=== PATIENT | female | born 1950 | race Caucasian/White ===

== ENCOUNTER → 2019-02-08 13:51 | Outpatient (BNVA) | payer MEDICARE, SELFPAY | PROVIDERS: Family Provider Nurse Practitioner Family; PCP Nurse Practitioner Family; Visit Provider Family Medicine | DX: R39.9 Unspecified symptoms and signs involving the genitourinary system (principal); N39.0 Urinary tract infection, site not specified; J30.9 Allergic rhinitis, unspecified | CPT/HCPCS: 81003; 87086 ==

== ENCOUNTER 2019-02-19 06:00 | Outpatient (RCR) | payer MEDICARE, SELFPAY | END 2019-03-09 23:59 | disposition home or self-care (01) | LOC: SPT 06:00 | PROVIDERS: Family Provider Nurse Practitioner Family; PCP Nurse Practitioner Family; Referring Provider Family Medicine; Visit Provider Family Medicine | DX: R53.1 Weakness (principal) | CPT/HCPCS: 97032; 97110; 97116; 97162; 97530 ==

== ENCOUNTER 2019-02-22 08:03 | Outpatient (RCR) | payer MEDICARE, SELFPAY | END 2019-03-09 23:59 | disposition home or self-care (01) | LOC: WOUND 08:03 | PROVIDERS: Family Provider Nurse Practitioner Family; PCP Nurse Practitioner Family; Visit Provider Nurse Practitioner Family | DX: I96 Gangrene, not elsewhere classified (principal); L89.893 Pressure ulcer of other site, stage 3 | CPT/HCPCS: 99203; G0463 ==

== ENCOUNTER 2019-03-11 06:00 | Outpatient (RCR) | payer MEDICARE, MEDICAID, SELFPAY | END 2019-04-07 23:59 | disposition home or self-care (01) | LOC: SPT 06:00 | PROVIDERS: Family Provider Nurse Practitioner Family; PCP Nurse Practitioner Family; Referring Provider Family Medicine; Visit Provider Family Medicine | DX: M62.81 Muscle weakness (generalized) (principal); Z91.81 History of falling; E66.01 Morbid (severe) obesity due to excess calories | CPT/HCPCS: 97110; 97116; 97164; 97530 ==

== ENCOUNTER 2019-03-22 08:16 | Outpatient (RCR) | payer MEDICARE, MEDICAID, SELFPAY | END 2019-04-07 23:59 | disposition home or self-care (01) | LOC: WOUND 08:16 | PROVIDERS: Family Provider Nurse Practitioner Family; PCP Nurse Practitioner Family; Visit Provider Nurse Practitioner Family | DX: Z09 Encounter for follow-up examination after completed treatment for conditions other than malignant neoplasm (principal) | CPT/HCPCS: 99213; G0463 ==

== ENCOUNTER → 2019-04-02 15:27 | Outpatient (BNVA) | payer MEDICARE, MEDICAID, SELFPAY | PROVIDERS: Family Provider Nurse Practitioner Family; PCP Nurse Practitioner Family; Visit Provider Family Medicine | DX: M79.644 Pain in right finger(s) (principal); G89.29 Other chronic pain | CPT/HCPCS: 73140 ==

== ENCOUNTER 2019-04-08 06:00 | Outpatient (RCR) | payer MEDICARE, MEDICAID, SELFPAY | END 2019-05-08 23:59 | disposition home or self-care (01) | LOC: SPT 06:00 | PROVIDERS: Family Provider Nurse Practitioner Family; PCP Nurse Practitioner Family; Referring Provider Family Medicine; Visit Provider Family Medicine | DX: M62.81 Muscle weakness (generalized) (principal); Z91.81 History of falling; E66.01 Morbid (severe) obesity due to excess calories | CPT/HCPCS: 97110; 97116; 97530 ==

== ENCOUNTER → 2019-05-16 16:40 | Outpatient (BNVA) | payer MEDICARE, MEDICAID, SELFPAY | PROVIDERS: Family Provider Nurse Practitioner Family; PCP Nurse Practitioner Family; Visit Provider Nurse Practitioner Family | DX: I50.9 Heart failure, unspecified (principal); E55.9 Vitamin D deficiency, unspecified | CPT/HCPCS: 80053; 82306; 83880; 85025 ==

== ENCOUNTER → 2019-05-18 09:39 | Outpatient (BNVA) | payer MEDICARE, MEDICAID, SELFPAY | PROVIDERS: Family Provider Nurse Practitioner Family; PCP Nurse Practitioner Family; Referring Provider Family Medicine; Visit Provider Orthopaedic Surgery | DX: M25.561 Pain in right knee (principal); M17.12 Unilateral primary osteoarthritis, left knee; M94.261 Chondromalacia, right knee; S72.433A Displaced fracture of medial condyle of unspecified femur, initial encounter for closed fracture; X58.XXXA Exposure to other specified factors, initial encounter | CPT/HCPCS: 73560; 73565 ==

== ENCOUNTER 2019-06-05 06:17 | Inpatient (IN) | payer MEDICARE, MEDICAID, SELFPAY ==
[2019-06-05] VITALS (82 sets, daily range): BP systolic 54–124; BP diastolic 41–89; PULSE 82–104; RESP 9–28; TEMP 36.7–37; O2SAT 64–100; BMI 32.3; BMI 41.3
--- NOTE | 2019-06-05 06:36 | CT_ITS ---
WS: [id number] CT ABDOMEN AND PELVIS WITH CONTRAST HISTORY: nvd TECHNIQUE: Imaging performed of the abdomen and pelvis with IV contrast. Single phase imaging of the abdomen. Coronal and sagittal reformats are submitted. All CT scans at [facility] use at least one of these dose optimization techniques: automated exposure control; mA and/or kV adjustment per patient size (includes targeted exams where dose is matched to clinical indication); or iterativ e reconstruction. IV CONTRAST: Visipaque 320; 95 mL IV. Oral contrast: No DLP: 3719.92 mGy.cm COMPARISON: 06/20/2017 Lower thorax: Lung bases are clear. Heart is normal size. Small hiatal hernia. Liver/biliary system: Surface of the liver is slightly irregular and nodular suggesting cirrhosis. No bile duct dilatation or mass. Gallbladder: Prior cholecystectomy. Pancreas: Normal. Spleen: Normal. Adrenal glands: Normal RIGHT adrenal gland. Rounded solid mass in the LEFT adrenal gland measures 2.1 cm in diameter. Similar to the prior study. Right kidney: Lobulated renal cortex. Exophytic cyst from the lower pole. Nonobstructing calcificatio ns upper pole LEFT kidney. Vascular calcifications. No ureteral obstruction. Left kidney: Cortical thinning and renal atrophy. No obstruction. 1.2 cm cyst lower pole. Aorta: Moderate atherosclerosis of aorta. No aneurysm. Lymphadenopathy: None. Free fluid: None. GI tract: No GI tract obstruction. Prior cholecystectomy. Numerous diverticula in the descending and sigmoid colon. There is moderate mucosal thickening and increased soft tissue at the duodenum that wa s not present on the prior study. Soft tissue edema extends into the mucosa. Suspect there could be a n ulcer. There is no adjacent free fluid. Abdominal wall: Infraumbilical abdominal wall hernia contains fat only. There is a large pannus exten ding below the pelvis with inflammatory changes, similar to the prior study. Chronic inflammatory mustapha nges. Pelvis: No free fluid in the pelvis. There is mild fluid distention of the endometrium. Endometrium m easures 12 mm and this is a new finding since 06/20/2017. Bones: Increase in lumbar lordosis. Multilevel degenerative disc disease. CT/CT abdomen pelvis w con* [id number] IMPRESSION: 1. New soft tissue thickening and edema with narrowing of the lumen involving the duodenum. Favor this is an acute inflammatory process and there may be an a ssociated ulcer. Recommend close follow-up to be sure this resolves. Upper endo scopy may be necessary to exclude neoplasm. 2. Cirrhosis. 3. Prior appendectomy and cholecystectomy. 4. Diverticulosis. 5. Mild fluid distention of the endometrium. Recommend follow-up transvaginal ultrasound evaluation on a nonurgent basis.
--- NOTE | 2019-06-05 06:37 | W.ED.NAVMDI ---
HPI - Nausea/Vomiting/Diarrhea General: Chief complaint: Nausea/Vomiting/Diarrhea Stated complaint: N/V Time Seen by Provider: 06/05/19 06:23 History of Present Illness: Associated nausea: Yes Associated symtoms: Reports nausea Review of Systems General: Reports: 10 or more systems reviewed and unremarkable except in HPI and below GI: Reports: abdominal pain, nausea, vomiting and diarrhea PFSH ED PFSH: Medical History Anxiety ASHD (arteriosclerotic heart disease) Back pain CHF (congestive heart failure) CKD (chronic kidney disease) DDD (degenerative disc disease) Decreased hearing of both ears Diabetes Diabetic polyneuropathy Dyslipidemia Hypertension Morbid obesity Vitamin B deficiency Vitamin D deficiency Surgical History H/O hernia repair History of coronary artery stent placement Hx of section 3 Hx of cholecystectomy Hx of tonsillectomy S/P plastic surgery 2019 Family History Other Hypertension Social History Smoking and tobacco status: former smoker Quit status (tobacco): has quit using tobacco Former quit date comment: 2.5 PPD x 40 yrs Alcohol intake: unknown Lives independently: Yes Household members: spouse Housing: House Marital status: Pets and animals: Yes History of recent travel: No Current gender identity: Female Physical Exam Const: COMMON NORMALS: no apparent distress, oriented x3 and alert Neck/C-Spine: COMMON NORMALS: no JVD Resp: COMMON NORMALS: normal respiratory effort, no use of accessory muscles and clear to auscultation bilaterally AUSCULTATION: clear to auscultation bilaterally Cardio: COMMON NORMALS: no JVD, regular rate and regular rhythm RATE: regular rate RHYTHM: regular rhythm GI: COMMON NORMALS: normal to inspection, nondistended, normoactive bowel sounds and soft to palpation PALPATION: Yes soft Extremity: COMMON NORMALS: normal to inspection, full ROM and no pedal edema Neuro: COMMON NORMALS: oriented x3 SENSORIUM/ORIENTATION: Yes alert Course Vital Signs: Vital signs: Vital Signs Temperature 98.6 F 06/05/19 06:25 Pulse Rate 92 06/05/19 06:25 Respiratory Rate 18 06/05/19 06:25 Pulse Oximetry 90 06/05/19 06:25 Discharge Plan Discharge Prescriptions: No Action nitroglycerin [Nitrostat] 0.4 mg tablet, sublingual 0.4 mg SUBLINGUAL Q5M PRN (Reason: Chest Pain) RF: 0 (DME) insulin syringes (disposable) 1 mL syringe See Rx Instructions .ROUTE .MEDSUPPLY Qty: 500 RF: 0 potassium chloride 20 mEq tablet extended release 1.5 meq PO BID RF: 0 albuterol sulfate [Ventolin HFA] 90 mcg/actuation HFA aerosol inhaler 2 puff INHALATION Q6H PRN (Reason: Shortness Of Breath) RF: 0 (DME) pen needle, diabetic [1st Tier Unifine Pentips] 29 gauge x 1/2 needle See Rx Instructions .ROUTE .MEDSUPPLY Qty: 30 RF: 0 furosemide 40 mg tablet 80 mg PO QAM RF: 0 phenazopyridine [Pyridium] 100 mg tablet 100 mg PO TID Qty: 20 RF: 0 metoprolol tartrate 50 mg tablet 50 mg PO BID Qty: 180 RF: 0 cholecalciferol (vitamin D3) 2,000 unit tablet 2,000 unit PO DAILY RF: 0 ketoconazole 2 % cream 1 applic TOPICAL BID Qty: 60 RF: 1 Levemir U-100 Insulin 100 unit/mL solution 80 unit SUBCUT BID Qty: 100 RF: 1 Novolog U-100 Insulin aspart 100 unit/mL solution 35 unit SUBCUT TID Qty: 10 RF: 3 nystatin [Nystop] 100,000 unit/gram powder 1 applic TOPICAL QID Qty: 30 RF: 5 cyclobenzaprine 10 mg tablet 10 mg PO TID PRN (Reason: muscle spasm) Qty: 45 RF: 3 isosorbide mononitrate 30 mg tablet extended release 24 hr 30 mg PO DAILY Qty: 30 RF: 5 allopurinol 300 mg tablet 300 mg PO BID Qty: 60 RF: 5 clopidogrel 75 mg tablet 75 mg PO DAILY Qty: 30 RF: 5 atorvastatin [Lipitor] 40 mg tablet 40 mg PO DAILY Qty: 30 RF: 5 tramadol 50 mg tablet 50 mg PO BID PRN (Reason: pain) Qty: 60 RF: 1 meclizine 25 mg tablet 25 mg PO TID PRN (Reason: dizziness) Qty: 90 RF: 0 fluticasone propionate 50 mcg/actuation spray,suspension 2 spray INTRANASAL DAILY Qty: 15.8 RF: 2 lisinopril 5 mg tablet 5 mg PO DAILY Qty: 60 RF: 0 loratadine [Claritin] 10 mg tablet 10 mg PO Q24H Qty: 30 RF: 2 Voltaren 1 % gel 4 gm TOPICAL QID RF: 0 Coding Level of Care Code ED [employer] Professor for Chg Fwd Exam Detailed
[2019-06-05 07:21] LABS: Basophils % 0.3 %; Eosinophils % 0.1 %; Hematocrit 26.8 % (37.0-47.0); Hemoglobin 8.6 g/dL (11.5-15.3); Lymphocytes # 1.4 10^3/uL (0.8-4.8); Lymphocytes % 9.2 %; Mean Corpuscular HGB Conc 32.1 g/dL (30.0-36.0); Mean Corpuscular Hemoglobin 34.3 pg (28.0-34.0); Mean Corpuscular Volume 106.8 fL (81-99); Mean Platelet Volume 10.4 fL (7.4-10.4); Monocytes # 0.7 10^3/uL (0.2-0.9); Monocytes % 4.5 %; Neutrophils # 13.2 10^3/uL (1.8-7.7); Neutrophils % 85.3 %; Nucleated Red Blood Cells % 0 %; Platelet Count 119 10^3/cmm (130-400); Red Blood Count 2.51 10^6/uL (4.1-5.3); Red Cell Distribution Width 14.9 % (12.1-15.1); White Blood Count 15.5 10^3/uL (4.0-10.0)
[2019-06-05 07:36] LABS: Alanine Aminotransferase 16 U/L (0-33); Albumin Level 3.1 g/dL (3.5-5.2); Alkaline Phosphatase 164 IU/L (35-105); Anion Gap 16.4 (5-19); Aspartate Amino Transferase 11 U/L (0-32); Blood Urea Nitrogen 61 mg/dL (8-23); Calcium 10.5 mg/dL (8.5-10.5); Carbon Dioxide 25 mmol/L (22-29); Chloride 98 mmol/L (98-107); Creatinine Clr Calc Pharmacy 59.3903; Glomerular Filtration Rate 54.8 mL/min (90-130); Lipase 14 U/L (13-60); Osmolality Calculated 302 mOsm/kg (285-295); Potassium 5.4 mmol/L (3.5-5.1); Sodium 134 mmol/L (136-145); Total Bilirubin 0.6 mg/dL (0.15-1.2); Total Protein 6.1 g/dL (6.6-8.7)
[2019-06-05 07:42] LABS: Glucose 555 mg/dL (65-115)
[2019-06-05] MEDS: iodixanol 320 mg/mL 100mL Btl IV (07:54)
[2019-06-05] MEDS: ondansetron 2 mg/ML SDV 2 mL 4 MG IVP (07:56)
[2019-06-05] MEDS: sodium chloride 0.9% 1,000 ML 999 ML IV (07:56)
[2019-06-05 08:29] LABS: Lactate (Lactic Acid level) 2.3 mmol/L (0.5-2.2)
--- NOTE | 2019-06-05 08:37 | PC.NURSE ---
Pt refused hospital gown. Assisted to use bedside commode.
--- NOTE | 2019-06-05 10:45 | P.HP_ITS ---
Providers/Chief Complaint Admitting Physician: Marichuy Toro DO Primary Care Provider: BECKI Moreno Chief Complaint: GI BLEED, ANEMIA, N/V/D History of Present Illness Yesika Sanchez is a 69 year old female that presented to the emergency department today for nausea vomiting. She reported that her vomit looked like coffee grounds. She reported that she was concerned due to the amount of emesis she was experiencing therefore came into the ER for further evaluation and treatment. She reported that she is having some vague discomfort in the center of her abdomen. She stated that her symptoms suddenly began last night after eating fast food. She has been having diarrhea since last night, reported to be dark in color, likely melena. She reports that she has been on aspirin and Plavix due to history of coronary artery disease, stent in 2017. Patient stated that she has been under significant amount of stress recently due to marital difficulties. Patient also reports history of bulimia and has been inducing vomiting on occasion when she is stressed. Patient also reports that she is cut down on her insulin over the past 24 hours due to decreased oral intake, reports increased thirst. She was seen and evaluated in the emergency department noted to have concern for upper GI bleed had type and screen performed. She was noted to be hypotensive given IV fluids. Patient had a CT scan of the abdomen and pelvis which showed concern for changes in the duodenum. She was admitted for further evaluation and treatment. Review of Systems Const: Denies: fever or chills Eyes: Denies: change in vision ENMT: Denies: nasal congestion Card: Denies: chest pain, palpitations or edema Resp: Denies: shortness of breath, productive cough or coughing up blood GI: Reports: abdominal pain, nausea, vomiting, coffee grounds in vomit and black tarry stool; Denies: diarrhea, constipation or blood in stool : Denies: painful urination or blood in urine Musc: Denies: extremity pain or muscle cramps Skin/Breast: Denies: rash or new lesion Neuro: Denies: headache or dizziness Psych: Denies: anxiety or depression Endo: Reports: excessive urination and excessive thirst; Denies: hot flashes Steven/Lymph: Denies: easy bruising or easy bleeding Medications/Allergies Home Medications Medication Instructions Recorded Confirmed Last Taken Type albuterol sulfate 90 mcg/actuation 2 puff INHALATION Q6H PRN 01/02/20 04/28/20 Unknown History aerosol inhaler furosemide 40 mg tablet 80 mg PO QAM 02/08/19 06/05/19 06/04/19 History insulin syringes (disposable) 1 mL #500 each 02/08/19 06/05/19 Unknown History nitroglycerin 0.4 mg sublingual 0.4 mg SUBLINGUAL Q5M PRN 02/08/19 06/05/19 Unknown History tablet pen needle, diabetic 29 gauge x #30 each 02/08/19 06/05/19 Unknown History 1/2 phenazopyridine 100 mg tablet 100 mg PO TID #20 tab 02/08/19 06/05/19 06/04/19 Rx potassium chloride 20 mEq 1.5 meq PO BID tab 02/08/19 06/05/19 06/04/19 History tablet,extended release ketoconazole 2 % topical cream 1 applic TOPICAL BID #60 gm 03/20/19 06/05/19 0 06/04/19 Rx insulin detemir U-100 100 unit/mL 80 unit SUBCUT BID #100 ml 03/21/19 06/05/19 06/04/19 Rx subcutaneous solution insulin aspart U-100 100 unit/mL 35 unit SUBCUT TID #10 ml 03/23/19 06/05/19 06/04/19 Rx subcutaneous solution metoprolol tartrate 50 mg tablet 50 mg PO BID #180 tab 03/27/19 06/05/19 06/04/19 Rx cholecalciferol (vitamin D3) 50 2,000 unit PO DAILY tab 04/02/19 06/05/19 06/04/19 History mcg (2,000 unit) tablet allopurinol 300 mg tablet 300 mg PO BID #60 tab 04/25/19 06/05/19 06/04/19 Rx atorvastatin 40 mg tablet 40 mg PO DAILY #30 tab 04/25/19 06/05/19 06/04/19 Rx clopidogrel 75 mg tablet 75 mg PO DAILY #30 tab 04/25/19 06/05/19 06/04/19 Rx cyclobenzaprine 10 mg tablet 10 mg PO TID PRN #45 tab 04/25/19 06/05/19 Unknown Rx isosorbide mononitrate 30 mg 30 mg PO DAILY #30 tab 04/25/19 06/05/19 06/04/19 Rx tablet,extended release 24 hr nystatin 100,000 unit/gram topical 1 applic TOPICAL QID #30 gm 04/25/19 06/05/19 06/04/19 Rx powder tramadol 50 mg tablet 50 mg PO BID PRN #60 tab 04/26/19 06/05/19 06/04/19 Rx fluticasone propionate 50 2 spray INTRANASAL DAILY #15.8 ml 05/21/19 06/05/19 06/04/19 Rx mcg/actuation nasal spray,suspension lisinopril 5 mg tablet 5 mg PO DAILY #60 tab 05/21/19 06/05/19 06/04/19 Rx loratadine 10 mg tablet 10 mg PO Q24H #30 tab 05/21/19 06/05/19 Unknown Rx meclizine 25 mg tablet 25 mg PO TID PRN #90 tab 05/21/19 06/05/19 06/04/19 Rx diclofenac sodium [Voltaren] 4 gm TOPICAL QID 06/05/19 06/05/19 06/04/19 History Allergies Allergy/AdvReac Type Severity Reaction Status Date / Time bupropion [From Wellbutrin] Allergy Unknown Unknown Verified 05/18/19 10:38 ciprofloxacin Allergy Unknown Unknown Verified 05/18/19 10:38 codeine Allergy Unknown Unknown Verified 05/18/19 10:38 fluoxetine [From Prozac] Allergy Unknown Unknown Verified 05/18/19 10:38 gabapentin Allergy Unknown Unknown Verified 05/18/19 10:38 Opioids - Morphine Analogues Allergy Unknown Unknown Verified 05/18/19 10:38 sulindac [From Clinoril] Allergy Unknown unkown Verified 05/18/19 10:38 PFSH Acute PFSH: Medical History (Updated 06/05/19 @ 10:52 by Marichuy Toro DO) Anxiety ASHD (arteriosclerotic heart disease) Back pain CHF (congestive heart failure) CKD (chronic kidney disease) Coronary artery disease DDD (degenerative disc disease) Decreased hearing of both ears Diabetes Diabetic polyneuropathy Dyslipidemia Hypertension Morbid obesity Vitamin B deficiency Vitamin D deficiency Surgical History (Updated 06/05/19 @ 10:55 by Marichuy Toro DO) H/O hernia repair History of coronary artery stent placement Cardiac cath on 12/13/2016 with stent placement to LAD Hx of section 3 Hx of cholecystectomy Hx of tonsillectomy S/P plastic surgery 2019, panniculectomy Family History (Updated 06/05/19 @ 10:54 by Marichuy Toro DO) Mother CAD (coronary artery disease) Other Hypertension Social History Smoking and tobacco status: former smoker Quit status (tobacco): has quit using tobacco Former quit date comment: 2.5 PPD x 40 yrs Alcohol intake: unknown Lives independently: Yes Household members: spouse Housing: House Marital status: Pets and animals: Yes History of recent travel: No Current gender identity: Female Vitals/I&O/Wt Last Vital Signs Temp 98.0 F 06/05/19 10:20 Pulse 87 06/05/19 10:30 Resp 20 H 06/05/19 10:30 BP 104/62 06/05/19 10:30 Pulse Ox 100 06/05/19 10:30 Weight last 48 hrs Weight 90.718 kg Physical Exam Const: COMMON NORMALS: oriented x3 and alert GENERAL APPEARANCE: cooperative ORIENTATION/CONSCIOUSNESS: Yes awake, Yes oriented to person, Yes oriented to place and Yes oriented to time HENMT: COMMON NORMALS: normocephalic and head/scalp atraumatic HEAD & SCALP: normocephalic and atraumatic Eye: COMMON NORMALS: PERRL PUPIL: Yes PERRL Neck/C-Spine: COMMON NORMALS: supple GENERAL: Yes normal visual inspection Resp: COMMON NORMALS: normal respiratory effort and clear to auscultation bilaterally EFFORT & INSPECTION: Yes able to speak in complete sentences AUSCULTATION: clear to auscultation bilaterally, no rhonchi and no wheezes Cardio: COMMON NORMALS: regular rate, regular rhythm and no murmurs RATE: regular rate RHYTHM: regular rhythm GI: COMMON NORMALS: soft to palpation INSPECTION: No abdominal distension AUSCULTATION: Yes normoactive bowel sounds PALPATION: Yes soft and Yes tender (Epigastric region) : COMMON NORMALS: Yes no CVA tenderness BLADDER/KIDNEY EXAM: Yes no CVA tenderness Back/Pelvis: COMMON NORMALS: no CVA tenderness Extremity: COMMON NORMALS: no clubbing, cyanosis or edema and no calf tenderness Neuro: COMMON NORMALS: oriented x3, CN's II-XII intact bilaterally, moves all extremities and no focal motor deficits SENSORIUM/ORIENTATION: Yes alert, Yes oriented to person, Yes oriented to place and Yes oriented to time SPEECH: speech normal Psych: COMMON NORMALS: mental status grossly normal and cooperative Skin: COMMON NORMALS: no rashes or lesions noted GENERAL SKIN EXAM: no rashes or lesions noted Data : 06/05/19 13:06 06/05/19 13:06 A&P Assessment and plan (1) Acute GI bleeding: Concern for acute upper GI bleed with reported coffee-ground emesis for the past 24 hours. Hemoglobin decreased from 10 earlier this month down to 8.6 today. Type and screen performed in the ER, has not received any blood products at this time CT scan of the abdomen and pelvis reviewed shows thickening in the duodenum, this was discussed with Dr. Toth and consultation placed. Plan for EGD today. Continue on Protonix 40 mg every 12 hours Status: Acute (2) Anemia: Acute on chronic anemia due to GI bleed. Plan as above Status: Acute Qualifiers: Anemia type: unspecified type Qualified Code(s): D64.9 - Anemia, unspecified (3) Poorly controlled diabetes mellitus: Blood glucose greater than 500 on presentation to the ED. Patient reports not taking her home insulin as previously prescribed due to her symptoms that began yesterday. She did report taking Levemir last night, unknown dosing. Will place on high-dose sliding scale insulin. Status: Acute (4) CHF (congestive heart failure): Patient is hypovolemic on presentation to the ED due to concern for GI bleed. Will hold off on diuresis at this time due to soft pressures. Status: Acute (5) Hypertension: Patient was hypotensive while in the ED. Blood pressure improved after administration of IV fluids. We will continue to monitor blood pressure closely. Hold home antihypertensives. Status: Acute Additional A&P Information Chronic thrombocytopenia: Believed to be secondary to underlying cirrhosis. Holding aspirin and Plavix Coronary artery disease: Cardiac cath in 2017 with PCI to LAD. Holding aspirin and Plavix due to concern for GI bleed. Patient also with chronic thrombocytopenia History of cirrhosis, patient had previously declined further evaluation and work-up Morbid obesity Mild hyperkalemia: Given IV fluids, will recheck potassium DVT prophylaxis: SCDs, no pharmacologic prophylaxis due to concern for GI bleed Diet: N.p.o. CODE STATUS: DNI/DNI [facility] Medical Necessity Statement*: Patient requires hospitalization due to acute anemia with concern for acute GI bleed. Expected stay greater than 2 midnights Coding Level of Care Code Acute Stretcher Level[employer] Operator for Chg Fwd Exam Comprehensive Diagnoses Acute GI bleeding K92.2 Anemia D64.9 Anemia type: unspecified type Poorly controlled diabetes mellitus E11.65 CHF (congestive heart failure) I50.9 Hypertension I10
--- NOTE | 2019-06-05 11:19 | P.ANESASSM_ITS ---
Pre-Anesthetic Assessment Pre-Anesthetic Assessment: Height/Weight: Height 1.73 m Weight 123.377 kg Temp Pulse Resp BP Pulse Ox 98.0 F 87 20 H 104/62 100 06/05/19 10:20 06/05/19 10:30 06/05/19 10:30 06/05/19 10:30 06/05/19 10:30 Preop Diagnosis: hematemsis Proposed Procedure: Operation Date: 06/05/19 14:30 Proposed Procedures p EGD(Not Applicable) - Chadwick Toth MD Familial anesthetic complications: Loss of taste after anesthesia - patient informed no way to prevent this from happening again Was Beta Caroline taken within 24 hours: N/A Social: Social History: No alcohol and No tobacco Comment: former smoker Exam: Pre-Anes Outpt Exam: alert, oriented x 3, clear to auscultation bilaterally and regular rate & rhythm Airway: Cervical ROM: WNL MP: 4 Dentition: Chipped Pulmonary: Pulmonary: None reported CV/HEM: CV/HEM: CAD (stent to LAD 2017 on plavix and asa), CHF and HTN : : Chronic renal Insufficiency Hepatic: Hepatic: None reported GI: Comments: N/'V/D Hx bulimia hasn't vomited since yesterday Metabolic: Metabolic: DM and Morbid obesity Comments: potassium 5.4 glucose 555 on admission Anesthetic Plan: ASA status: 3 Anesthesia: MAC Other: If patient has no further episodes of vomiting, will proceed with MAC. If not will require general Risk of > 500 ml blood loss (7ml/kg in children): No PFSH Anesthesia PFSH: Medical History (Updated 06/05/19 @ 10:52 by Marichuy Toro DO) Anxiety ASHD (arteriosclerotic heart disease) Back pain CHF (congestive heart failure) CKD (chronic kidney disease) Coronary artery disease DDD (degenerative disc disease) Decreased hearing of both ears Diabetes Diabetic polyneuropathy Dyslipidemia Hypertension Morbid obesity Vitamin B deficiency Vitamin D deficiency Surgical History (Updated 06/05/19 @ 10:55 by Marichuy Toro DO) H/O hernia repair History of coronary artery stent placement Cardiac cath on 12/13/2016 with stent placement to LAD Hx of section 3 Hx of cholecystectomy Hx of tonsillectomy S/P plastic surgery 2019, panniculectomy Family History (Updated 04/28/20 @ 10:54 by Marichuy Toro DO) Mother CAD (coronary artery disease) Other Hypertension Social History Smoking and tobacco status: former smoker Quit status (tobacco): has quit using tobacco Former quit date comment: 2.5 PPD x 40 yrs Alcohol intake: unknown Lives independently: Yes Household members: spouse Housing: House Marital status: Pets and animals: Yes History of recent travel: No Current gender identity: Female Data Anesthesia CBC & Chem 7: 06/05/19 07:14 06/05/19 07:14 Other Labs: Laboratory Results - last 48 hr 06/05/19 06/05/19 06/05/19 07:14 07:14 08:00 WBC 15.5 H RBC 2.51 L Hgb 8.6 L Hct 26.8 L MCV 106.8 H MCH 34.3 H MCHC 32.1 RDW 14.9 Plt Count 119 L MPV 10.4 Neut % (Auto) 85.3 Lymph % (Auto) 9.2 [place] % (Auto) 4.5 Eos % (Auto) 0.1 Baso % (Auto) 0.3 Neut # (Auto) 13.2 H Lymph # (Auto) 1.4 [place] # (Auto) 0.7 Eos # (Auto) 0.0 Baso # (Auto) 0.0 Nucleated RBC % (auto) 0 Nucleated RBCs # 0.0 Sodium 134 L Potassium 5.4 H Chloride 98 Carbon Dioxide 25 Anion Gap 16.4 BUN 61 H Creatinine 1.0 H GFR Calculation 54.8 L Glucose 555 H* Calculated Osmolality 302 H Lactate 2.3 H Calcium 10.5 Total Bilirubin 0.6 AST 11 ALT 16 Alkaline Phosphatase 164 H Total Protein 6.1 L Albumin 3.1 L Globulin 3.0 Lipase 14 Blood Type Rho(D) Type Antibody Screen 06/05/19 09:28 WBC RBC Hgb Hct MCV MCH MCHC RDW Plt Count MPV Neut % (Auto) Lymph % (Auto) [place] % (Auto) Eos % (Auto) Baso % (Auto) Neut # (Auto) Lymph # (Auto) [place] # (Auto) Eos # (Auto) Baso # (Auto) Nucleated RBC % (auto) Nucleated RBCs # Sodium Potassium Chloride Carbon Dioxide Anion Gap BUN Creatinine GFR Calculation Glucose Calculated Osmolality Lactate Calcium Total Bilirubin AST ALT Alkaline Phosphatase Total Protein Albumin Globulin Lipase Blood Type A Negative Rho(D) Type Negaive Antibody Screen Negative Cardiac Studies: No Data to Display
[2019-06-05 11:40] LABS: Glucose Point of Care 498 mg/dL (70-110)
[2019-06-05] MEDS: cyclobenzaprine 10 mg Tablet PO ×2 (12:20→20:37)
[2019-06-05] MEDS: pantoprazole 40 mg SDV IVP ×2 (12:20→21:29)
[2019-06-05] MEDS: sodium chloride 0.9% 1,000 ML 30 ML IV (12:37)
[2019-06-05] MEDS: morphine 4 mg/mL SDV 1 mL 2 MG IVP (12:38)
[2019-06-05] MEDS: diclofenac 1% Topical Gel 100 gm TOPICAL ×3 (12:46→21:22)
--- NOTE | 2019-06-05 13:32 | PC.NURSE ---
Patient is restless, inquizative and a poor historian. her pharmacy is in [place]. attempted to call back but each time he picked up he failed to speak.call back attempted x2. Yesika complains her abdominal pain epigastric and left lower quadrant are 8 and 10. she says that she tinks morphine makes her nauseated but thus far in 45 min she has not been nauseated but slightly confused. her iv may have a slow leak at the insertion site or she spilt a cup of ice chips i gave her. I was able to convince her to wear our gowns. blood pressure much improved with bolus going. once up to [facility] to void her pressure was 90 systolic and she was shivering. subsequent pressures read poorly until i warmed her up. she averages 110 systolic therefore i gave her morphine. currently awaiting egd team . patient would like to rest will consider ativan if the team has not come n the next 30 min,
[2019-06-05 13:41] LABS: Hematocrit 24.4 % (37.0-47.0); Hemoglobin 7.9 g/dL (11.5-15.3)
[2019-06-05 14:00] LABS: Anion Gap 15.9 (5-19); Blood Urea Nitrogen 58 mg/dL (8-23); Calcium 9.9 mg/dL (8.5-10.5); Carbon Dioxide 22 mmol/L (22-29); Chloride 103 mmol/L (98-107); Glomerular Filtration Rate 54.8 mL/min (90-130); Glucose 495 mg/dL (65-115); Osmolality Calculated 303 mOsm/kg (285-295); Potassium 4.9 mmol/L (3.5-5.1); Sodium 136 mmol/L (136-145)
--- NOTE | 2019-06-05 14:47 | PC.NURSE ---
bottom dentures will not come out and upper denture is full.
--- NOTE | 2019-06-05 15:04 | PC.NURSE ---
VS WNL, OPENS EYES AND ABLE TO SPEAK, DRINK FLUIDS, AND REASON. REMAINS FORGETFUL. PROCEEDURE COMPLETED AWAITING ORDERS.
--- NOTE | 2019-06-05 15:52 | P.CONIM_ITS ---
Providers/Reason For Consult Consulting Physican/Specialty*: Dr. Toro Reason for Consult*: GI bleed Attending Physician: Marichuy Toro DO Primary Care Provider: BECKI Moreno History of Present Illness History of Present Illness Yesika Sanchez is a 69 year old female who was admitted to the hospital today with 24-hour history of upper abdominal pain associated nausea vomiting including coffee-ground emesis. Patient states that she also had some black stools. She is currently on aspirin Plavix. She complains of a palpable mass and pain in the lower abdomen. She has had a prior panniculectomy. No known history of peptic ulcer disease. She had a CT abdomen pelvis which showed thickening of the duodenum Review of Systems General: Reports: 10 or more systems reviewed and unremarkable except in HPI and below Meds/Allergies Home Medications and Allergies Home Medications Medication Instructions Recorded Confirmed Last Taken Type albuterol sulfate 90 mcg/actuation 2 puff INHALATION Q6H PRN 02/08/19 06/05/19 Unknown History aerosol inhaler furosemide 40 mg tablet 80 mg PO QAM 02/08/19 06/05/19 06/04/19 History insulin syringes (disposable) 1 mL #500 each 02/08/19 06/05/19 Unknown History nitroglycerin 0.4 mg sublingual 0.4 mg SUBLINGUAL Q5M PRN 02/08/19 06/05/19 Unknown History tablet pen needle, diabetic 29 gauge x #30 each 02/08/19 06/05/19 Unknown History 1/2 phenazopyridine 100 mg tablet 100 mg PO TID #20 tab 02/08/19 06/05/19 06/04/19 Rx potassium chloride 20 mEq 1.5 meq PO BID tab 02/08/19 06/05/19 06/04/19 History tablet,extended release ketoconazole 2 % topical cream 1 applic TOPICAL BID #60 gm 03/20/19 06/05/19 06/04/19 Rx insulin detemir U-100 100 unit/mL 80 unit SUBCUT BID #100 ml 03/21/19 06/05/19 06/04/19 Rx subcutaneous solution insulin aspart U-100 100 unit/mL 35 unit SUBCUT TID #10 ml 03/23/19 06/05/19 06/04/19 Rx subcutaneous solution metoprolol tartrate 50 mg tablet 50 mg PO BID #180 tab 03/27/19 06/05/19 06/04/19 Rx cholecalciferol (vitamin D3) 50 2,000 unit PO DAILY tab 04/02/19 06/05/19 06/04/19 History mcg (2,000 unit) tablet allopurinol 300 mg tablet 300 mg PO BID #60 tab 04/25/19 06/05/19 06/04/19 Rx atorvastatin 40 mg tablet 40 mg PO DAILY #30 tab 04/25/19 06/05/19 06/04/19 Rx clopidogrel 75 mg tablet 75 mg PO DAILY #30 tab 04/25/19 06/05/19 06/04/19 Rx cyclobenzaprine 10 mg tablet 10 mg PO TID PRN #45 tab 04/25/19 06/05/19 Unknown Rx isosorbide mononitrate 30 mg 30 mg PO DAILY #30 tab 04/25/19 06/05/19 06/04/19 Rx tablet,extended release 24 hr nystatin 100,000 unit/gram topical 1 applic TOPICAL QID #30 gm 04/25/19 06/05/19 06/04/19 Rx powder tramadol 50 mg tablet 50 mg PO BID PRN #60 tab 04/26/19 06/05/19 06/04/19 Rx fluticasone propionate 50 2 spray INTRANASAL DAILY #15.8 ml 05/21/19 06/05/19 06/04/19 Rx mcg/actuation nasal spray,suspension lisinopril 5 mg tablet 5 mg PO DAILY #60 tab 05/21/19 06/05/19 06/04/19 Rx loratadine 10 mg tablet 10 mg PO Q24H #30 tab 05/21/19 06/05/19 Unknown Rx meclizine 25 mg tablet 25 mg PO TID PRN #90 tab 05/21/19 06/05/19 06/04/19 Rx diclofenac sodium [Voltaren] 4 gm TOPICAL QID 06/05/19 06/05/19 06/04/19 History Allergies Allergy/AdvReac Type Severity Reaction Status Date / Time bupropion [From Wellbutrin] Allergy Unknown Unknown Verified 05/18/19 10:38 ciprofloxacin Allergy Unknown Unknown Verified 05/18/19 10:38 codeine Allergy Unknown Unknown Verified 05/18/19 10:38 fluoxetine [From Prozac] Allergy Unknown Unknown Verified 05/18/19 10:38 gabapentin Allergy Unknown Unknown Verified 05/18/19 10:38 Opioids - Morphine Analogues Allergy Unknown Unknown Verified 05/18/19 10:38 sulindac [From Clinoril] Allergy Unknown unkown Verified 05/18/19 10:38 Current Medications Current Medications Generic Name Dose Route Start Last Admin Trade Name Freq PRN Reason Stop Dose Admin Cyclobenzaprine HCl 10 mg 06/05/19 11:42 06/05/19 12:20 Flexeril PO 10 mg TID PRN Administration muscle spasm Diclofenac Sodium 0 applic 06/05/19 13:00 06/05/19 12:46 Voltaren TOPICAL 1 appful QID GIANNI Administration Sodium Chloride 1,000 mls @ 30 mls/hr 06/05/19 12:15 06/05/19 12:37 Sodium Chloride 0.9% IV 30 mls/hr .Q24H GIANNI Administration Insulin Aspart 0 unit 06/05/19 12:00 06/05/19 12:20 Novolog SUBCUT 18 unit TIDWM GIANNI Administration Protocol Pantoprazole Sodium 40 mg 06/05/19 10:45 06/05/19 12:20 Protonix IVP 40 mg Q12H GIANNI Administration PFSH Acute PFSH: Medical History Anxiety ASHD (arteriosclerotic heart disease) Back pain CHF (congestive heart failure) CKD (chronic kidney disease) Coronary artery disease DDD (degenerative disc disease) Decreased hearing of both ears Diabetes Diabetic polyneuropathy Dyslipidemia Hypertension Morbid obesity Vitamin B deficiency Vitamin D deficiency Surgical History H/O hernia repair History of coronary artery stent placement Cardiac cath on 12/13/2016 with stent placement to LAD Hx of section 3 Hx of cholecystectomy Hx of tonsillectomy S/P plastic surgery 2019, panniculectomy Family History Mother CAD (coronary artery disease) Other Hypertension Social History Smoking and tobacco status: former smoker Quit status (tobacco): has quit using tobacco Former quit date comment: 2.5 PPD x 40 yrs Alcohol intake: unknown Lives independently: Yes Household members: spouse Housing: House Marital status: Pets and animals: Yes History of recent travel: No Current gender identity: Female Female Reproductive History: Date of last menstrual period: 06/05/19 Vitals/I&O/Wt Last Vital Signs Temp 98.3 F 06/05/19 13:20 Pulse 99 06/05/19 15:05 Resp 25 H 06/05/19 15:05 BP 124/89 06/05/19 15:05 Pulse Ox 100 06/05/19 15:05 06/05/19 06/05/19 06/05/19 06:59 14:59 22:59 Intake Total 25 / 25 Output Total 125 / 125 Balance -100 / -100 Weight last 48 hrs Weight 272 lb Weight 200 lb Physical Exam Narrative: EXAM NARRATIVE: HEENT: Normocephalic Eye: Sclera /conjunctiva normal Respiratory and chest: Bilateral clear breath sounds on auscultation Cardiovascular: Normal S1 and S2 heart sounds Abdomen: Soft to palpation, well-healed Pfannenstiel scar, there is a palpable mass in the left lower quadrant suggestive of incarcerated hernia Neurological: Oriented to place person and time Skin: Intact, no lesions appreciated on gross exam A&P Assessment and plan (1) Acute GI bleeding: Plan for EGD under MAC Procedure, risks, benefits and alternatives have been discussed with the patient who wishes to proceed with surgery. Status: Acute (2) Incarcerated incisional hernia: Patient is tender over the hernia, she has had prior hernia repair. CT abdomen pelvis showed incarcerated hernia containing fat, no evidence of Status: Acute Coding Level of Care Code Acute Home Theatre Technician for [facility] Diagnoses Acute GI bleeding K92.2 Incarcerated incisional hernia K43.0
[2019-06-05] MEDS: allopurinol 300 mg Tablet PO (16:22)
[2019-06-05] MEDS: sucralfate 1 gm/10 mL Oral Liq UDC PO ×2 (16:22→20:37)
--- NOTE | 2019-06-05 16:45 | PC.NURSE ---
PATIENT AND HER HAVE HOME HEALTH WITH [facility] AND [facility] TRAYLOR IS HER NURSE AT [phone]
[2019-06-05 17:51] LABS: Glucose Point of Care 388 mg/dL (70-110)
[2019-06-05 19:44] LABS: Hemoglobin 7.3 g/dL (11.5-15.3)
[2019-06-05] MEDS: TRAMadol 50 mg Tablet PO (20:37)
[2019-06-05 21:22] LABS: Glucose Point of Care 356 mg/dL (70-110)
[2019-06-06] VITALS (13 sets, daily range): BP systolic 95–177; BP diastolic 54–72; PULSE 69–108; RESP 16–22; TEMP 36.5–37; O2SAT 93–96
[2019-06-06 05:18] LABS: Basophils % 0.3 %; Eosinophils # 0.1 10^3/uL (0.0-0.8); Eosinophils % 1.1 %; Hemoglobin 7.6 g/dL (11.5-15.3); Lymphocytes # 1.9 10^3/uL (0.8-4.8); Lymphocytes % 16.4 %; Mean Corpuscular HGB Conc 31.7 g/dL (30.0-36.0); Mean Corpuscular Hemoglobin 33.9 pg (28.0-34.0); Mean Corpuscular Volume 107.1 fL (81-99); Mean Platelet Volume 10.4 fL (7.4-10.4); Monocytes # 0.8 10^3/uL (0.2-0.9); Monocytes % 6.8 %; Neutrophils # 8.5 10^3/uL (1.8-7.7); Nucleated Red Blood Cells % 0 %; Platelet Count 110 10^3/cmm (130-400); Red Blood Count 2.24 10^6/uL (4.1-5.3); Red Cell Distribution Width 15.4 % (12.1-15.1); White Blood Count 11.3 10^3/uL (4.0-10.0)
[2019-06-06 05:40] LABS: Anion Gap 13.4 (5-19); Blood Urea Nitrogen 53 mg/dL (8-23); Calcium 10.4 mg/dL (8.5-10.5); Carbon Dioxide 24 mmol/L (22-29); Chloride 104 mmol/L (98-107); Glomerular Filtration Rate 44.4 mL/min (90-130); Glucose 209 mg/dL (65-115); Osmolality Calculated 289 mOsm/kg (285-295); Potassium 4.4 mmol/L (3.5-5.1); Sodium 137 mmol/L (136-145)
[2019-06-06] MEDS: sucralfate 1 gm/10 mL Oral Liq UDC PO ×4 (06:04→21:57)
--- NOTE | 2019-06-06 06:20 | PM.PN ---
Subjective Subjective: Interval history: Patient has not had any further episodes of melena overnight Vitals/I&O/Wt Last Vital Signs Temp 98.3 F 06/06/19 04:00 Pulse 107 H 06/06/19 04:00 Resp 18 06/06/19 04:00 BP 97/54 06/06/19 04:00 Pulse Ox 93 06/06/19 04:00 06/05/19 06/05/19 06/06/19 14:59 22:59 06:59 Intake Total 25 / 125 100 / 125 Output Total 125 / 125 Balance -100 / 0 100 / 0 Weight last 48 hrs Weight 272 lb Weight 200 lb Physical Exam Narrative: EXAM NARRATIVE: Abdomen: Soft Data : 06/06/19 05:04 06/06/19 05:04 A&P Assessment and plan (1) Duodenal ulcer: Patient has been hemodynamically stable, no evidence of active bleeding Start clear liquid diet and advance to GI soft diet in the next 24 hours Protonix 40 twice daily and Carafate Patient will need a follow-up EGD in 6 weeks Status: Acute Attestations Medical Necessity Statement*: Duodenal ulcer Coding Level of Care Code Acute Ecologist for [facility] Fwd Diagnoses Duodenal ulcer K26.9
[2019-06-06] MEDS: TRAMadol 50 mg Tablet PO (06:23)
[2019-06-06 06:44] LABS: Glucose Point of Care 230 mg/dL (70-110)
--- NOTE | 2019-06-06 08:35 | PC.NURSE ---
Blood consent signed Blood started at this time. Patient is A&Ox3. Respirations even and non-labored on room air. No obvious signs of distress noted.
[2019-06-06] MEDS: sodium chloride 0.9% 100 ML 125 ML (09:56)
[2019-06-06] MEDS: fluconazole 100 mg Tablet 200 MG PO (09:57)
[2019-06-06] MEDS: atorvastatin 40 mg Tablet PO (09:57)
[2019-06-06] MEDS: metoprolol tartrate 50 mg Tablet PO ×2 (09:57→18:06)
[2019-06-06] MEDS: allopurinol 300 mg Tablet PO (09:57)
[2019-06-06] MEDS: isosorbide mononitrate ER 30 mg Tablet PO (09:57)
--- NOTE | 2019-06-06 09:59 | ANE.PACU2 ---
 Inpatient post-anesthesia follow up: Airway intact: Yes Vital signs: Temperature 97.9 F Pulse Rate [Monito r] 92 Pulse Rate 104 Respiratory Rate 16 Blood Pressure 128/70 Pulse Oximetry 94 Oxygen Delivery Me thod Room Air Oxygen Flow Rate 2 Fraction of Inspir ed Oxygen Hydration adequate: Yes Nausea and vomiting: No Mental status: Baseline
--- NOTE | 2019-06-06 10:00 | PC.CHAP ---
Pastoral Care Encounter/Spiritual Assessment Type of Contact [] Declined billboard installer visit [] Patient/Family/Request visit [] Outpatient visit [] Follow-up visit [] Physician referral [] Code/Alert [x] Routine visit [] Staff referral [] Actively dying [] Patient sleeping [] Family support [] [] Out of room [] Palliative care [] [] Receiving care in room [] Pre-surgical visit [] Trauma [] Long length of stay [] ICU visit [] Other: Relational/Emotional Strength [] Patient feels connected with others/family/visitors/staff [] Distress [] Loneliness/isolation [] Abandonment Spirituality of Patient [x] Person of Rocio [] Attends Buddhist of their Rocio [x] Believes in Prayer [] Reads Bible or Synagogue materials [] There are Spiritual issues to be addressed Commercial Credit Portfolio Manager Interventions x] Prayer [] Active listening [] Non-anxious presence [] Spiritual/emotional support [] Crisis/trauma care [] Spiritual counseling [] Bereavement support [] Provided bereavement packet [] Provided Bible/devotional materials [] Provided toy/stuffed animal, coloring book to patient or family member [] Provided Communion [] Anointing/[place] [] Salvation [x] Completed spiritual assessment [] Other: Impact on Illness or Injury [] Angry [] Fearful [] Anxious [] Often cries [] Exhaustion [] Unable to work [] Unable to attend spiritism [] Unable to walk/stand [] Unable to read [] Unable to drive [] Unable to eat/drink [] Unable to sleep [] Unable to be with family [] Patient intubated [] Other: Summary Patient (Bear- Albert name) feeling stronger. receiving blood, resting well. Time spent with patient 15 min
--- NOTE | 2019-06-06 10:18 | PM.PN ---
Subjective Subjective: Interval history: Patient awake in bed at time of exam. She reported some continued epigastric discomfort, improved from admission. Denied any nausea or vomiting. Denied any melanotic stools overnight. Discussed with patient plan for continue on IV PPI and clear liquid diet, transition to oral PPI tomorrow with increasing diet as tolerated. Plan for blood transfusion today. Patient verbalized understanding and agreed with plan. Vitals/I&O/Wt Last Vital Signs Temp 97.9 F 06/06/19 08:32 Pulse 89 06/06/19 10:01 Resp 18 06/06/19 10:01 BP 128/70 06/06/19 08:32 Pulse Ox 94 06/06/19 10:01 06/05/19 06/06/19 06/06/19 22:59 06:59 14:59 Intake Total 100 / 125 0 / 0 Balance 100 / 0 0 / 0 Weight last 48 hrs Weight 124.783 kg Weight 123.377 kg Weight 90.718 kg Physical Exam Const: COMMON NORMALS: oriented x3 and alert GENERAL APPEARANCE: cooperative ORIENTATION/CONSCIOUSNESS: Yes awake, Yes oriented to person, Yes oriented to place and Yes oriented to time HENMT: COMMON NORMALS: normocephalic and head/scalp atraumatic HEAD & SCALP: normocephalic and atraumatic Eye: COMMON NORMALS: PERRL PUPIL: Yes PERRL Neck/C-Spine: COMMON NORMALS: supple GENERAL: Yes normal visual inspection Resp: COMMON NORMALS: normal respiratory effort and clear to auscultation bilaterally EFFORT & INSPECTION: Yes able to speak in complete sentences AUSCULTATION: clear to auscultation bilaterally, no rhonchi and no wheezes Cardio: COMMON NORMALS: regular rate, regular rhythm and no murmurs RATE: regular rate RHYTHM: regular rhythm GI: COMMON NORMALS: soft to palpation INSPECTION: No abdominal distension AUSCULTATION: Yes normoactive bowel sounds PALPATION: Yes soft and Yes tender (Epigastric region) : COMMON NORMALS: Yes no CVA tenderness BLADDER/KIDNEY EXAM: Yes no CVA tenderness Back/Pelvis: COMMON NORMALS: no CVA tenderness Extremity: COMMON NORMALS: no clubbing, cyanosis or edema and no calf tenderness Neuro: COMMON NORMALS: oriented x3, CN's II-XII intact bilaterally, moves all extremities and no focal motor deficits SENSORIUM/ORIENTATION: Yes alert, Yes oriented to person, Yes oriented to place and Yes oriented to time SPEECH: speech normal Psych: COMMON NORMALS: mental status grossly normal and cooperative Skin: COMMON NORMALS: no rashes or lesions noted GENERAL SKIN EXAM: no rashes or lesions noted Data : 06/06/19 05:04 06/06/19 05:04 A&P Assessment and plan (1) Acute GI bleeding: Upper GI bleed with large duodenal ulcer on EGD performed on 06/05/2019 Continue on IV PPI 40 mg every 12 hours at this time and can transition to oral tomorrow if improving Continue on Carafate Continue to hold Plavix Clear liquid diet today, increase to full liquid tomorrow if tolerating well Status: Acute (2) Anemia: Acute on chronic anemia due to GI bleed. Transfuse 1 unit of packed red blood cells today due to hemoglobin of 7.6, due to coronary artery disease would like to have goal hemoglobin greater than 8 Status: Acute Qualifiers: Anemia type: unspecified type Qualified Code(s): D64.9 - Anemia, unspecified (3) Poorly controlled diabetes mellitus: Will increase levemir to 70units BID Continue high-dose sliding scale insulin. Status: Acute (4) CHF (congestive heart failure): Patient is hypovolemic on presentation to the ED due to concern for GI bleed. Will hold off on diuresis at this time due to soft pressures. Status: Acute (5) Hypertension: Hold home antihypertensives. Status: Acute Additional A&P Information Chronic thrombocytopenia: Believed to be secondary to underlying cirrhosis. Holding Plavix Coronary artery disease: Cardiac cath in 2017 with PCI to LAD. Holding Plavix due to concern for GI bleed. Patient also with chronic thrombocytopenia History of cirrhosis, patient had previously declined further evaluation and work-up Morbid obesity Mild hyperkalemia: resolved DVT prophylaxis: SCDs, no pharmacologic prophylaxis due to concern for GI bleed Diet: Clear liquid diet CODE STATUS: DNI/DNI Attestations Medical Necessity Statement*: Patient requires further hospitalization due to concern for upper GI bleed with large duodenal ulcer. Coding Level of Care Code Acute Signal And Communications Maintainer for [facility] Fwd Exam Comprehensive Diagnoses Acute GI bleeding K92.2 Anemia D64.9 Anemia type: unspecified type Poorly controlled diabetes mellitus E11.65 CHF (congestive heart failure) I50.9 Hypertension I10
--- NOTE | 2019-06-06 11:20 | PC.NURSE ---
Blood completed at this time. Patient tolerated well. No obvious reaction noted. Patient is A&Ox3. Respirations even and non-labored on room air.
[2019-06-06] MEDS: pantoprazole 40 mg SDV IVP ×2 (11:21→21:29)
[2019-06-06 11:58] LABS: Glucose Point of Care 254 mg/dL (70-110)
[2019-06-06 16:12] LABS: Glucose Point of Care 165 mg/dL (70-110)
[2019-06-06] MEDS: sodium chloride 0.9% 1,000 ML 30 ML IV (18:02)
[2019-06-06] MEDS: diclofenac 1% Topical Gel 100 gm TOPICAL ×2 (18:08→21:57)
[2019-06-06 21:48] LABS: Glucose Point of Care 131 mg/dL (70-110)
[2019-06-07] VITALS (8 sets, daily range): BP systolic 104–138; BP diastolic 63–76; PULSE 67–90; RESP 16–22; TEMP 36.4–36.7; O2SAT 92–99
[2019-06-07] MEDS: ondansetron 2 mg/ML SDV 2 mL 4 MG IVP ×2 (00:57→10:26)
[2019-06-07 06:05] LABS: Hemoglobin 8.2 g/dL (11.5-15.3)
[2019-06-07 06:25] LABS: Glucose Point of Care 71 mg/dL (70-110)
[2019-06-07] MEDS: atorvastatin 40 mg Tablet PO (08:46)
[2019-06-07] MEDS: fluconazole 100 mg Tablet 200 MG PO (08:46)
[2019-06-07] MEDS: isosorbide mononitrate ER 30 mg Tablet PO (08:46)
[2019-06-07] MEDS: allopurinol 300 mg Tablet PO ×2 (08:47→17:44)
[2019-06-07] MEDS: metoprolol tartrate 50 mg Tablet PO ×2 (08:47→17:43)
[2019-06-07] MEDS: sucralfate 1 gm/10 mL Oral Liq UDC PO (09:06)
[2019-06-07] MEDS: cyclobenzaprine 10 mg Tablet PO (09:06)
--- NOTE | 2019-06-07 09:34 | PM.PN ---
Subjective Subjective: Interval history: Patient awake in bed at time of exam this morning. She reported she was able to eat some of the GI soft diet but is having some epigastric discomfort. Patient denies any vomiting, reported some nausea last night. Vitals/I&O/Wt Last Vital Signs Temp 98.0 F 06/07/19 08:00 Pulse 90 06/07/19 08:01 Resp 16 06/07/19 08:01 BP 104/66 06/07/19 08:00 Pulse Ox 94 06/07/19 08:01 06/06/19 06/07/19 06/07/19 22:59 06:59 14:59 Intake Total 1362.5 / 1952.5 240 / 240 Output Total 0 / 0 Balance 1362.5 / 1952.5 0 / 1952.5 240 / 240 Weight last 48 hrs Weight 125.872 kg Weight 124.783 kg Weight 123.377 kg Physical Exam Const: COMMON NORMALS: oriented x3 and alert GENERAL APPEARANCE: cooperative ORIENTATION/CONSCIOUSNESS: Yes awake, Yes oriented to person, Yes oriented to place and Yes oriented to time HENMT: COMMON NORMALS: normocephalic and head/scalp atraumatic HEAD & SCALP: normocephalic and atraumatic Eye: COMMON NORMALS: PERRL PUPIL: Yes PERRL Neck/C-Spine: COMMON NORMALS: supple GENERAL: Yes normal visual inspection Resp: COMMON NORMALS: normal respiratory effort and clear to auscultation bilaterally EFFORT & INSPECTION: Yes able to speak in complete sentences AUSCULTATION: clear to auscultation bilaterally, no rhonchi and no wheezes Cardio: COMMON NORMALS: regular rate, regular rhythm and no murmurs RATE: regular rate RHYTHM: regular rhythm GI: COMMON NORMALS: soft to palpation INSPECTION: No abdominal distension AUSCULTATION: Yes normoactive bowel sounds PALPATION: Yes soft and Yes tender (Epigastric region) Extremity: COMMON NORMALS: no clubbing, cyanosis or edema and no calf tenderness Neuro: COMMON NORMALS: oriented x3, CN's II-XII intact bilaterally, moves all extremities and no focal motor deficits SENSORIUM/ORIENTATION: Yes alert, Yes oriented to person, Yes oriented to place and Yes oriented to time SPEECH: speech normal Psych: COMMON NORMALS: mental status grossly normal and cooperative Skin: COMMON NORMALS: no rashes or lesions noted GENERAL SKIN EXAM: no rashes or lesions noted Data : 06/07/19 05:53 06/06/19 05:04 A&P Assessment and plan (1) Acute GI bleeding: Upper GI bleed with large duodenal ulcer on EGD performed on 06/05/2019 Continue on Carafate and Protonix, will transition to oral Protonix today Continue to hold Plavix Increase to GI soft. Patient reports some slight increase in epigastric discomfort, will continue with close monitoring and transition to clear liquid diet again if needed if continued discomfort Status: Acute (2) Anemia: Acute on chronic anemia due to GI bleed. Status post 1 unit of packed red blood cell transfusion on 06/06/2019. Due to coronary artery disease goal of hemoglobin greater than 8 Status: Acute Qualifiers: Anemia type: unspecified type Qualified Code(s): D64.9 - Anemia, unspecified (3) Poorly controlled diabetes mellitus: Levemir 60 units twice daily, continue on sliding scale insulin as needed. Continue high-dose sliding scale insulin. Status: Acute (4) CHF (congestive heart failure): Hold home diuretics due to soft blood pressure Status: Acute (5) Hypertension: Hold home antihypertensives. Status: Acute Additional A&P Information Chronic thrombocytopenia: Recheck CBC in a.m., continue to hold Plavix. This is chronic in nature due to underlying cirrhosis Coronary artery disease: Cardiac cath in 2017 with PCI to LAD. Holding Plavix due to GI bleed History of cirrhosis, patient had previously declined further evaluation and work-up Morbid obesity DVT prophylaxis: SCDs, no pharmacologic prophylaxis due to concern for GI bleed Diet: GI soft diet CODE STATUS: DNR/DNI Attestations Medical Necessity Statement*: Patient requires further hospitalization due to upper GI bleed with large duodenal ulcer with continued epigastric discomfort Coding Level of Care Code Acute Land Sales Agent for [facility] Diagnoses Acute GI bleeding K92.2 Anemia D64.9 Anemia type: unspecified type Poorly controlled diabetes mellitus E11.65 CHF (congestive heart failure) I50.9 Hypertension I10
[2019-06-07 10:52] LABS: Glucose Point of Care 207 mg/dL (70-110)
[2019-06-07] MEDS: TRAMadol 50 mg Tablet PO (11:32)
[2019-06-07] MEDS: docusate sodium 100 mg Capsule PO ×2 (11:32→17:44)
[2019-06-07] MEDS: sucralfate 1 gm Tablet PO ×3 (12:13→22:21)
--- NOTE | 2019-06-07 13:39 | PC.NURSE ---
Pt ambulated 50ft on her own with assistance from walker, tolerated well.
--- NOTE | 2019-06-07 13:57 | PC.NURSE ---
Pt up with PT
[2019-06-07] MEDS: nitroglycerin 0.4 mg sublingual Tablet SUBLINGUAL (14:49)
--- NOTE | 2019-06-07 15:05 | PC.NURSE ---
Pt complained of chest pain rated 6/10, administered 1 nitroglycerin tablet, was resolved.
[2019-06-07 15:22] LABS: Glucose Point of Care 214 mg/dL (70-110)
[2019-06-07 16:21] LABS: Glucose Point of Care 198 mg/dL (70-110)
[2019-06-07] MEDS: pantoprazole DR 40 mg Tablet PO (17:43)
[2019-06-07 22:19] LABS: Glucose Point of Care 120 mg/dL (70-110)
[2019-06-07] MEDS: diclofenac 1% Topical Gel 100 gm TOPICAL (22:22)
[2019-06-08] VITALS: BP 108/72; PULSE 83; RESP 17; TEMP 36.9; O2SAT 95
[2019-06-08 04:00] VITALS: BP 112/71; PULSE 86; RESP 18; TEMP 36.7; O2SAT 96
[2019-06-08 05:47] LABS: Glucose Point of Care 59 mg/dL (70-110)
[2019-06-08 06:00] LABS: Basophils % 0.1 %; Eosinophils % 0.1 %; Hematocrit 27.1 % (37.0-47.0); Hemoglobin 8.6 g/dL (11.5-15.3); Lymphocytes # 1.3 10^3/uL (0.8-4.8); Lymphocytes % 9.3 %; Mean Corpuscular HGB Conc 31.7 g/dL (30.0-36.0); Mean Corpuscular Volume 107.1 fL (81-99); Mean Platelet Volume 10.3 fL (7.4-10.4); Monocytes # 0.8 10^3/uL (0.2-0.9); Monocytes % 5.6 %; Neutrophils # 11.4 10^3/uL (1.8-7.7); Neutrophils % 84.5 %; Nucleated Red Blood Cells % 0 %; Platelet Count 120 10^3/cmm (130-400); Red Blood Count 2.53 10^6/uL (4.1-5.3); Red Cell Distribution Width 15.9 % (12.1-15.1); White Blood Count 13.5 10^3/uL (4.0-10.0)
[2019-06-08] MEDS: sucralfate 1 gm Tablet PO ×2 (06:07→12:30)
[2019-06-08 06:21] LABS: Alanine Aminotransferase 12 U/L (0-33); Albumin Level 2.9 g/dL (3.5-5.2); Alkaline Phosphatase 138 IU/L (35-105); Anion Gap 14.1 (5-19); Aspartate Amino Transferase 13 U/L (0-32); Blood Urea Nitrogen 31 mg/dL (8-23); Calcium 10.4 mg/dL (8.5-10.5); Carbon Dioxide 22 mmol/L (22-29); Chloride 105 mmol/L (98-107); Globulin 3.2 g/dL (1.3-4.6); Glomerular Filtration Rate 54.8 mL/min (90-130); Glucose 54 mg/dL (65-115); Osmolality Calculated 279 mOsm/kg (285-295); Potassium 4.1 mmol/L (3.5-5.1); Sodium 137 mmol/L (136-145); Total Bilirubin 0.4 mg/dL (0.15-1.2); Total Protein 6.1 g/dL (6.6-8.7)
[2019-06-08 07:28] VITALS: BP 116/64; PULSE 76; RESP 18; TEMP 36.4; O2SAT 98
[2019-06-08 07:42] LABS: Glucose Point of Care 130 mg/dL (70-110)
[2019-06-08] MEDS: isosorbide mononitrate ER 30 mg Tablet PO (08:13)
[2019-06-08] MEDS: allopurinol 300 mg Tablet PO (08:13)
[2019-06-08] MEDS: pantoprazole DR 40 mg Tablet PO (08:13)
[2019-06-08] MEDS: fluconazole 100 mg Tablet 200 MG PO (08:13)
[2019-06-08] MEDS: atorvastatin 40 mg Tablet PO (08:13)
[2019-06-08] MEDS: metoprolol tartrate 50 mg Tablet PO (08:17)
[2019-06-08] MEDS: fluticasone nasal spray 16gm Btl 2 SPRAY INTRANASAL (08:18)
[2019-06-08] MEDS: docusate sodium 100 mg Capsule PO (08:18)
[2019-06-08] MEDS: diclofenac 1% Topical Gel 100 gm TOPICAL (08:19)
[2019-06-08 08:47] VITALS: PULSE 88; RESP 17; O2SAT 94
--- NOTE | 2019-06-08 11:05 | PM.DCS ---
Discharge Providers Date of Admission: 06/05/19 08:27 Date of Discharge: June 08, 2019 Attending Provider at Admission: Marichuy Toro DO Attending Provider at Discharge: Marichuy Toro DO Primary Care Provider: BECKI Moreno Diagnoses at Discharge Discharge Diagnosis (1) Acute GI bleeding: Status: Acute (2) Anemia: Status: Acute Qualifiers: Anemia type: unspecified type Qualified Code(s): D64.9 - Anemia, unspecified (3) Poorly controlled diabetes mellitus: Status: Acute (4) CHF (congestive heart failure): Status: Acute (5) Hypertension: Status: Acute Reason for Visit Reason for Visit: Reason For Visit: GI BLEED, ANEMIA, N/V/D Hospital Course Hospital Course: Patient presented to the emergency department for abdominal pain and coffee-ground emesis. She was seen and evaluated in the ED and admitted to the hospital for further evaluation and treatment due to concern for acute anemia and concern for upper GI bleed. General surgeon was consulted and patient was kept n.p.o. for an EGD. She was started on IV Protonix every 12 hours and H&H was monitored closely. Type and screen was performed while patient was in the ED. EGD was performed on date of admission and patient was noted to have a large and deep duodenal ulcer without any active bleeding. Her home Plavix was held. Hemoglobin down trended slightly to less than 8 and due to her history of coronary artery disease she was transfused 1 unit of packed red blood cells. She was continued on IV Protonix then transition to oral Protonix. She was also kept on Carafate. Patient's hemoglobin continued to stabilize and gradually improved her vital signs also improved. She was able to tolerate clear liquid diet and then started on soft diet of which she also tolerated well. On date of discharge she was up ambulating the halls multiple times without any chest pain shortness of breath or abdominal pain. Hemoglobin remained stable and discussed with patient plan for discharge to home. Physical Exam Const: COMMON NORMALS: oriented x3 and alert GENERAL APPEARANCE: cooperative ORIENTATION/CONSCIOUSNESS: Yes awake, Yes oriented to person, Yes oriented to place and Yes oriented to time HENMT: COMMON NORMALS: normocephalic and head/scalp atraumatic HEAD & SCALP: normocephalic and atraumatic Eye: COMMON NORMALS: PERRL PUPIL: Yes PERRL Neck/C-Spine: COMMON NORMALS: supple GENERAL: Yes normal visual inspection Resp: COMMON NORMALS: normal respiratory effort and clear to auscultation bilaterally EFFORT & INSPECTION: Yes able to speak in complete sentences AUSCULTATION: clear to auscultation bilaterally, no rhonchi and no wheezes Cardio: COMMON NORMALS: regular rate, regular rhythm and no murmurs RATE: regular rate RHYTHM: regular rhythm GI: COMMON NORMALS: soft to palpation and non-tender INSPECTION: No abdominal distension AUSCULTATION: Yes normoactive bowel sounds PALPATION: Yes soft Extremity: COMMON NORMALS: no clubbing, cyanosis or edema and no calf tenderness Neuro: COMMON NORMALS: oriented x3, CN's II-XII intact bilaterally, moves all extremities and no focal motor deficits SENSORIUM/ORIENTATION: Yes alert, Yes oriented to person, Yes oriented to place and Yes oriented to time SPEECH: speech normal Psych: COMMON NORMALS: mental status grossly normal and cooperative Skin: COMMON NORMALS: no rashes or lesions noted GENERAL SKIN EXAM: no rashes or lesions noted Discharge Data Data Completed and Pending: Completed Studies During Hospitalization Category Date Time Status CT abdomen pelvis w con* [id number] Urge nt Cat Scan 06/05/19 06:36 Completed Pathology: Surgic al [PTH] Routine Pth 06/05/19 14:52 Completed Labs from last 24 hours 06/08/19 06/08/19 06/08/19 07:29 05:42 05:34 WBC RBC Hgb Hct MCV MCH MCHC RDW Plt Count MPV Neut % (Auto) Lymph % (Auto) [place] % (Auto) Eos % (Auto) Baso % (Auto) Neut # (Auto) Lymph # (Auto) [place] # (Auto) Eos # (Auto) Baso # (Auto) Nucleated RBC % (a uto) Nucleated RBCs # Sodium 137 Potassium 4.1 Chloride 105 Carbon Dioxide 22 Anion Gap 14.1 BUN 31 H Creatinine 1.0 H GFR Calculation 54.8 L Glucose 54 L POC Glucose 130 59 Calculated Osmolal ity 279 L Calcium 10.4 Total Bilirubin 0.4 AST 13 ALT 12 Alkaline Phosphata se 138 H Total Protein 6.1 L Albumin 2.9 L Globulin 3.2 06/08/19 06/07/19 06/07/19 05:34 22:00 16:13 WBC 13.5 H RBC 2.53 L Hgb 8.6 L Hct 27.1 L MCV 107.1 H MCH 34.0 MCHC 31.7 RDW 15.9 H Plt Count 120 L MPV 10.3 Neut % (Auto) 84.5 Lymph % (Auto) 9.3 [place] % (Auto) 5.6 Eos % (Auto) 0.1 Baso % (Auto) 0.1 Neut # (Auto) 11.4 H Lymph # (Auto) 1.3 [place] # (Auto) 0.8 Eos # (Auto) 0.0 Baso # (Auto) 0.0 Nucleated RBC % (a uto) 0 Nucleated RBCs # 0.0 Sodium Potassium Chloride Carbon Dioxide Anion Gap BUN Creatinine GFR Calculation Glucose POC Glucose 120 198 Calculated Osmolal ity Calcium Total Bilirubin AST ALT Alkaline Phosphata se Total Protein Albumin Globulin 06/07/19 15:13 WBC RBC Hgb Hct MCV MCH MCHC RDW Plt Count MPV Neut % (Auto) Lymph % (Auto) [place] % (Auto) Eos % (Auto) Baso % (Auto) Neut # (Auto) Lymph # (Auto) [place] # (Auto) Eos # (Auto) Baso # (Auto) Nucleated RBC % (a uto) Nucleated RBCs # Sodium Potassium Chloride Carbon Dioxide Anion Gap BUN Creatinine GFR Calculation Glucose POC Glucose 214 Calculated Osmolal ity Calcium Total Bilirubin AST ALT Alkaline Phosphata se Total Protein Albumin Globulin Vitals: Last Vital Signs Temp 97.5 F L 06/08/19 07:28 Pulse 88 06/08/19 08:47 Resp 17 06/08/19 08:47 BP 116/64 06/08/19 07:28 Pulse Ox 94 06/08/19 08:47 Discharge Plan Discharge Patient Disposition: Home Health Service Condition: Fair Prescriptions: New sucralfate 1 gram Tablet 1 g PO AC&BEDTIME 30 Days Qty: 120 RF: 0 pantoprazole 40 mg Tablet,Delayed Release (Dr/Ec) 40 mg PO BID 30 Days Qty: 60 RF: 0 Continued nitroglycerin [Nitrostat] 0.4 mg tablet, sublingual 0.4 mg SUBLINGUAL Q5M PRN (Reason: Chest Pain) RF: 0 (DME) insulin syringes (disposable) 1 mL syringe See Rx Instructions .ROUTE .MEDSUPPLY Qty: 500 RF: 0 potassium chloride 20 mEq tablet extended release 1.5 meq PO BID RF: 0 albuterol sulfate [Ventolin HFA] 90 mcg/actuation HFA aerosol inhaler 2 puff INHALATION Q6H PRN (Reason: Shortness Of Breath) RF: 0 (DME) pen needle, diabetic [1st Tier Unifine Pentips] 29 gauge x 1/2 needle See Rx Instructions .ROUTE .MEDSUPPLY Qty: 30 RF: 0 furosemide 40 mg tablet 80 mg PO QAM RF: 0 phenazopyridine [Pyridium] 100 mg tablet 100 mg PO TID Qty: 20 RF: 0 metoprolol tartrate 50 mg tablet 50 mg PO BID Qty: 180 RF: 0 cholecalciferol (vitamin D3) 2,000 unit tablet 2,000 unit PO DAILY RF: 0 ketoconazole 2 % cream 1 applic TOPICAL BID Qty: 60 RF: 1 Levemir U-100 Insulin 100 unit/mL solution 80 unit SUBCUT BID Qty: 100 RF: 1 Novolog U-100 Insulin aspart 100 unit/mL solution 35 unit SUBCUT TID Qty: 10 RF: 3 nystatin [Nystop] 100,000 unit/gram powder 1 applic TOPICAL QID Qty: 30 RF: 5 cyclobenzaprine 10 mg tablet 10 mg PO TID PRN (Reason: muscle spasm) Qty: 45 RF: 3 isosorbide mononitrate 30 mg tablet extended release 24 hr 30 mg PO DAILY Qty: 30 RF: 5 allopurinol 300 mg tablet 300 mg PO BID Qty: 60 RF: 5 atorvastatin [Lipitor] 40 mg tablet 40 mg PO DAILY Qty: 30 RF: 5 tramadol 50 mg tablet 50 mg PO BID PRN (Reason: pain) Qty: 60 RF: 1 meclizine 25 mg tablet 25 mg PO TID PRN (Reason: dizziness) Qty: 90 RF: 0 fluticasone propionate 50 mcg/actuation spray,suspension 2 spray INTRANASAL DAILY Qty: 15.8 RF: 2 lisinopril 5 mg tablet 5 mg PO DAILY Qty: 60 RF: 0 loratadine [Claritin] 10 mg tablet 10 mg PO Q24H Qty: 30 RF: 2 Voltaren 1 % gel 4 gm TOPICAL QID RF: 0 Discontinued clopidogrel 75 mg tablet 75 mg PO DAILY Qty: 30 RF: 5 Discharge Orders: Discharge Order (Routine); Ordered 06/08/19 Ordered By: Marichuy Toro Other Ambulatory Orders: DME: Brandon (Order) Location: None Selected Ordered By: Marichuy Toro Referrals: Chadwick Toth MD [Physician] - 6 Weeks Joslyn Hickey FNP [Primary Care Provider] - 1-3 days Discharge Diet: Cardiac, Diabetic and GI Soft Discharge Activity: Increase activity as tolerated and As per PT/OT instructions Activity Restrictions/Additional Instructions: Continue with Protonix 40 mg twice daily Continue with Carafate with meals and at night Holding Plavix at this time until further recommendation by her primary care provider Continue to monitor blood glucose daily, keep a log and presented to your primary care provider for further adjustment of insulin. Continue a bland, GI soft diet for the next 1 to 2 weeks Follow-up with Dr. Toth for EGD in 6 weeks Call your physician or present to the ED for any acute illness or concerns Discharge Attestations Time Spent in Discharge Care*: greater than 30 min Quality Metrics Clinical Quality Measures During this hospital stay, did patient experience: None Coding Level of Care Code Acute Area Director Of Home Health Sales for [facility]g Fwd Diagnoses Acute GI bleeding K92.2 Anemia D64.9 Anemia type: unspecified type Poorly controlled diabetes mellitus E11.65 CHF (congestive heart failure) I50.9 Hypertension I10
[2019-06-08 11:15] VITALS: BP 119/74; PULSE 77; RESP 18; O2SAT 98
[2019-06-08 11:31] LABS: Glucose Point of Care 232 mg/dL (70-110)
[2019-06-08 11:37] VITALS: BP 119/74; PULSE 77; RESP 18; O2SAT 98
[2019-06-08] MEDS: TRAMadol 50 mg Tablet PO (12:59)
[2019-06-08 20:16] LABS: Glucose Point of Care 161 mg/dL (70-110)
== END 2019-06-08 13:30 | disposition home health service (06) | DRG 378 ==
LOC: ER 08:59 → ICU 09:30 → MEDSURG 18:27
PROVIDERS: Internal Medicine; Surgery; Admitting Provider Family Medicine; Emergency Provider Family Medicine; Family Provider Nurse Practitioner Family; PCP Nurse Practitioner Family; Visit Provider Family Medicine
PROC: 0DJ08ZZ Inspection of Upper Intestinal Tract, Via Natural or Artificial Opening Endoscopic (ICD-10-PCS; CPT 43235; principal; 2019-06-05 14:30)
DX: K92.2 Gastrointestinal hemorrhage, unspecified (principal); I13.0 Hypertensive heart and chronic kidney disease with heart failure and stage 1 through stage 4 chronic kidney disease, or unspecified chronic kidney disease; Z68.41 Body mass index [BMI] 40.0-44.9, adult; D63.1 Anemia in chronic kidney disease; E11.65 Type 2 diabetes mellitus with hyperglycemia; E11.22 Type 2 diabetes mellitus with diabetic chronic kidney disease; Z66 Do not resuscitate; K26.9 Duodenal ulcer, unspecified as acute or chronic, without hemorrhage or perforation; I50.9 Heart failure, unspecified; Z79.02 Long term (current) use of antithrombotics/antiplatelets; I25.10 Atherosclerotic heart disease of native coronary artery without angina pectoris; D69.6 Thrombocytopenia, unspecified; Z95.5 Presence of coronary angioplasty implant and graft; Z79.4 Long term (current) use of insulin; F41.9 Anxiety disorder, unspecified; E78.5 Hyperlipidemia, unspecified; E66.01 Morbid (severe) obesity due to excess calories; E53.9 Vitamin B deficiency, unspecified; E55.9 Vitamin D deficiency, unspecified; Z87.891 Personal history of nicotine dependence
CPT/HCPCS: 12345; 36415; 36416; 36430; 43239; 74177; 80048; 80053; 82962; 83605; 83690; 85014; 85018; 85025; 86850; 86900; 86920; 88305; 96372; 96375; 97110; 97162; 97530; 99282; C9113; J1815; J2270; J2405; J7030; P9016; Q9967

== ENCOUNTER → 2019-06-11 12:51 | Outpatient (BNVA) | payer MEDICARE, MEDICAID, SELFPAY | PROVIDERS: Family Provider Nurse Practitioner Family; PCP Nurse Practitioner Family; Visit Provider Family Medicine | DX: K26.9 Duodenal ulcer, unspecified as acute or chronic, without hemorrhage or perforation (principal); E11.9 Type 2 diabetes mellitus without complications; Z79.4 Long term (current) use of insulin | CPT/HCPCS: 80048; 83036; 85025 ==

== ENCOUNTER 2019-06-21 06:00 | Outpatient (RCR) | payer MEDICARE, MEDICAID, SELFPAY | END 2019-07-08 23:59 | disposition home or self-care (01) | LOC: TPT 06:00 | PROVIDERS: PCP Nurse Practitioner Family; Referring Provider Orthopaedic Surgery; Visit Provider Orthopaedic Surgery | DX: M17.11 Unilateral primary osteoarthritis, right knee (principal) | CPT/HCPCS: 97110; 97163 ==

== ENCOUNTER 2019-07-09 06:00 | Outpatient (RCR) | payer MEDICARE, MEDICAID, SELFPAY | END 2019-08-07 23:59 | disposition home or self-care (01) | LOC: TPT 06:00 | PROVIDERS: PCP Nurse Practitioner Family; Referring Provider Orthopaedic Surgery; Visit Provider Orthopaedic Surgery | DX: M17.0 Bilateral primary osteoarthritis of knee (principal) | CPT/HCPCS: 97110 ==

== ENCOUNTER → 2019-07-24 12:10 | Outpatient (BNVA) | payer MEDICARE, MEDICAID, SELFPAY | PROVIDERS: PCP Nurse Practitioner Family; Visit Provider Nurse Practitioner Family | DX: L03.115 Cellulitis of right lower limb (principal); L03.116 Cellulitis of left lower limb | CPT/HCPCS: 84450; 87070; 87075; 87077; 87205 ==

== ENCOUNTER 2019-07-25 15:09 | Emergency (ER) | payer MEDICARE, MEDICAID, SELFPAY ==
[2019-07-25 15:11] VITALS: BMI 39.1
[2019-07-25 15:15] VITALS: BP 132/58; PULSE 81; RESP 18; TEMP 36.9; O2SAT 99
--- NOTE | 2019-07-25 15:22 | W.ED.EXTPRO ---
HPI - Extremity Problem General: Chief complaint: Extremity Problem,Nontraumatic Stated complaint: CELLULITIS LOWER EXTREMITIES Time Seen by Provider: 07/25/19 15:12 Source: patient and EMS Mode of arrival: EMS Limitations: no limitations History of Present Illness: HPI Narrative: 69-year-old female who has bilateral cellulitis is currently being treated by her PCP. Patient has received IM shots of Rocephin at the clinic along with Keflex and PCP is concerned that it was getting worse. Patient has mild redness. She denies any fever or pain. She denies any worsening or improving factors. Associated symptoms: Deny chest pain, fever(s) or rash Review of Systems Const: Denies: fever(s), chills, body aches or change in appetite Eyes: Denies: blurry vision or eye discomfort ENMT: Denies: throat pain or dental pain Card: Denies: chest pain Resp: Denies: dyspnea GI: Denies: abdominal pain, nausea, vomiting or diarrhea : Denies: dysuria Musc: Denies: neck pain or back pain Skin/Breast: Denies: rash Neuro: Denies: headache(s) Psych: Denies: depression Steven/Lymph: Denies: easy bruising All/Imm: Denies: urticaria PFSH ED PFSH: Medical History (Updated 07/25/19 @ 16:57 by Kristie Rush MD) Anxiety ASHD (arteriosclerotic heart disease) Back pain CHF (congestive heart failure) CKD (chronic kidney disease) Coronary artery disease DDD (degenerative disc disease) Decreased hearing of both ears Diabetes Diabetic polyneuropathy Duodenal ulcer Dyslipidemia Hypertension Incarcerated incisional hernia Morbid obesity Vitamin B deficiency Vitamin D deficiency Surgical History H/O esophagogastroduodenoscopy (~06/05/19) H/O hernia repair History of coronary artery stent placement Cardiac cath on 12/13/2016 with stent placement to LAD Hx of section 3 Hx of cholecystectomy Hx of tonsillectomy S/P appendectomy S/P plastic surgery 2019, panniculectomy Family History Mother CAD (coronary artery disease) Other Hypertension Social History Smoking and tobacco status: former smoker Quit status (tobacco): has quit using tobacco Former quit date comment: 2.5 PPD x 40 yrs Alcohol intake: unknown Lives independently: Yes Household members: spouse Housing: House Marital status: Pets and animals: Yes History of recent travel: No Current gender identity: Female Female Reproductive History: Date of last menstrual period: 06/05/19 Physical Exam Extremity: OTHER: Slight erythema to bilateral legs Course Vital Signs: Vital signs: Vital Signs Temperature 98.4 F 07/25/19 15:15 Pulse Rate 81 07/25/19 15:15 Respiratory Rate 18 07/25/19 15:15 Blood Pressure 132/58 07/25/19 15:15 Pulse Oximetry 99 07/25/19 15:15 MDM - Extremity (Nontraumatic) MDM Narrative: Medical decision making narrative: Patient presents with cellulitis of bilateral legs. Colitis is very mild in nature and white count is normal. Patient given IV bank and is to continue Keflex. Patient stable for discharge and return if worsening. Lab Data: Labs: Lab Results 07/25/19 07/25/19 Range/Units 15:58 15:58 WBC 6.2 (4.0-10.0) 10^3/ uL RBC 2.94 L (4.1-5.3) 10^6/u L Hgb 8.4 L (11.5-15.3) g/dL Hct 27.7 L (37.0-47.0) % MCV 94.2 (81-99) fL MCH 28.6 (28.0-34.0) pg MCHC 30.3 (30.0-36.0) g/dL RDW 16.4 H (12.1-15.1) % Plt Count 125 L (130-400) 10^3/c mm MPV 9.8 (7.4-10.4) fL Neut % (Auto) 69.4 % Lymph % (Auto) 19.4 % [place] % (Auto) 8.5 % Eos % (Auto) 2.1 % Baso % (Auto) 0.3 % Neut # (Auto) 4.3 (1.8-7.7) 10^3/u L Lymph # (Auto) 1.2 (0.8-4.8) 10^3/u L [place] # (Auto) 0.5 (0.2-0.9) 10^3/u L Eos # (Auto) 0.1 (0.0-0.8) 10^3/u L Baso # (Auto) 0.0 (0.0-0.1) 10^3/u L Nucleated RBC % (a uto) 0 % Nucleated RBCs # 0.0 /100WBC Sodium 131 L (136-145) mmol/L Potassium 4.3 (3.5-5.1) mmol/L Chloride 95 L (98-107) mmol/L Carbon Dioxide 27 (22-29) mmol/L Anion Gap 13.3 (5-19) BUN 30 H (8-23) mg/dL Creatinine 1.0 H (0.5-0.9) mg/dL GFR Calculation 54.8 L (90-130) mL/min Glucose 429 H (65-115) mg/dL Calculated Osmolal ity 287 (285-295) mOsm/k g Calcium 9.8 (8.5-10.5) mg/dL Discharge Plan Discharge Patient Disposition: Home, Self-Care Clinical Impression: Cellulitis of leg, left Condition: Stable Prescriptions: No Action albuterol sulfate [Ventolin HFA] 90 mcg/actuation HFA aerosol inhaler 2 puff INHALATION Q6H PRN (Reason: Shortness Of Breath) RF: 0 furosemide 40 mg tablet 40 mg PO QAM RF: 0 cholecalciferol (vitamin D3) 2,000 unit tablet 2,000 unit PO DAILY RF: 0 cephalexin [Keflex] 500 mg capsule 500 mg PO TID 10 Days Qty: 30 RF: 0 clindamycin HCl 300 mg capsule 300 mg PO TID Qty: 30 RF: 0 fluconazole [Diflucan] 150 mg tablet 150 mg PO DAILY Qty: 3 RF: 0 allopurinol 300 mg tablet 300 mg PO BID Qty: 60 RF: 5 atorvastatin [Lipitor] 40 mg tablet 40 mg PO DAILY Qty: 30 RF: 5 fluticasone propionate 50 mcg/actuation spray,suspension 2 spray INTRANASAL DAILY Qty: 15.8 RF: 2 lisinopril 5 mg tablet 5 mg PO DAILY Qty: 60 RF: 0 ketoconazole 2 % cream 1 applic TOPICAL BID Qty: 60 RF: 1 potassium chloride 20 mEq tablet extended release 20 meq PO BID Qty: 90 RF: 3 nitroglycerin [Nitrostat] 0.4 mg tablet, sublingual 0.4 mg SUBLINGUAL Q5M PRN (Reason: Chest Pain) Qty: 20 RF: 3 metoprolol tartrate 50 mg tablet 50 mg PO BID Qty: 180 RF: 0 meclizine 25 mg tablet 25 mg PO TID PRN (Reason: dizziness) Qty: 90 RF: 0 isosorbide mononitrate 30 mg tablet extended release 24 hr 30 mg PO DAILY Qty: 30 RF: 5 sucralfate 1 gram tablet See Rx Instructions .ROUTE .COMPLEX Qty: 120 RF: 0 insulin detemir U-100 [Levemir U-100 Insulin] 100 unit/mL solution See Rx Instructions .ROUTE .COMPLEX Qty: 50 RF: 0 insulin aspart U-100 [Novolog U-100 Insulin aspart] 100 unit/mL solution See Rx Instructions .ROUTE .COMPLEX Qty: 30 RF: 3 diclofenac sodium [Voltaren] 1 % gel 4 gm TOPICAL QID RF: 0 pantoprazole 40 mg tablet,delayed release (DR/EC) 40 mg PO BID RF: 0 Claritin 10 mg tablet 10 mg PO Q24H PRN (Reason: Allergy Symptoms) RF: 0 Discharge Orders: Discharge Order (Routine); Ordered 07/25/19 Ordered By: Kristie Rush Referrals: Joslyn Hickey FNP [Primary Care Provider] - Discharge Diet: Advance as tolerated Discharge Activity: Resume usual activity Patient Instructions: Cellulitis (ED) Coding Level of Care Code ED Family Literacy Coordinator for Rosa Lopez
[2019-07-25 16:03] LABS: Basophils % 0.3 %; Eosinophils # 0.1 10^3/uL (0.0-0.8); Eosinophils % 2.1 %; Hematocrit 27.7 % (37.0-47.0); Hemoglobin 8.4 g/dL (11.5-15.3); Lymphocytes # 1.2 10^3/uL (0.8-4.8); Lymphocytes % 19.4 %; Mean Corpuscular HGB Conc 30.3 g/dL (30.0-36.0); Mean Corpuscular Hemoglobin 28.6 pg (28.0-34.0); Mean Corpuscular Volume 94.2 fL (81-99); Mean Platelet Volume 9.8 fL (7.4-10.4); Monocytes # 0.5 10^3/uL (0.2-0.9); Monocytes % 8.5 %; Neutrophils # 4.3 10^3/uL (1.8-7.7); Neutrophils % 69.4 %; Nucleated Red Blood Cells % 0 %; Platelet Count 125 10^3/cmm (130-400); Red Blood Count 2.94 10^6/uL (4.1-5.3); Red Cell Distribution Width 16.4 % (12.1-15.1); White Blood Count 6.2 10^3/uL (4.0-10.0)
[2019-07-25 16:18] LABS: Anion Gap 13.3 (5-19); Blood Urea Nitrogen 30 mg/dL (8-23); Calcium 9.8 mg/dL (8.5-10.5); Carbon Dioxide 27 mmol/L (22-29); Chloride 95 mmol/L (98-107); Glomerular Filtration Rate 54.8 mL/min (90-130); Glucose 429 mg/dL (65-115); Osmolality Calculated 287 mOsm/kg (285-295); Potassium 4.3 mmol/L (3.5-5.1); Sodium 131 mmol/L (136-145)
[2019-07-25] MEDS: vancomycin 1,000 MG in sodium chloride 0.9% 250 ML 250 MG IV (17:16)
[2019-07-25] MEDS: insulin regular-human 100 units/1 mL 10 UNIT IVP (17:18)
[2019-07-25 17:49] LABS: Glucose Point of Care 367 mg/dL (70-110)
[2019-07-25 18:47] VITALS: BP 107/63; PULSE 66; RESP 18; O2SAT 99
== END 2019-07-25 18:48 | disposition home or self-care (01) ==
PROVIDERS: Emergency Provider Emergency Medicine; PCP Nurse Practitioner Family
DX: L03.116 Cellulitis of left lower limb (principal); Z79.4 Long term (current) use of insulin; I11.0 Hypertensive heart disease with heart failure; I50.9 Heart failure, unspecified; I25.10 Atherosclerotic heart disease of native coronary artery without angina pectoris; E11.9 Type 2 diabetes mellitus without complications; E78.5 Hyperlipidemia, unspecified; Z87.891 Personal history of nicotine dependence
CPT/HCPCS: 12345; 36415; 36416; 80048; 82962; 85025; 96365; 96375; 99282; 99283; J1815; J3370; J7050

== ENCOUNTER 2019-08-06 08:49 | Inpatient (IN) | payer MEDICARE, MEDICAID, SELFPAY ==
[2019-08-06] VITALS (42 sets, daily range): BP systolic 70–118; BP diastolic 38–83; PULSE 87–127; RESP 11–23; TEMP 36.5–36.9; O2SAT 87–100; BMI 44.3
[2019-08-06 09:40] LABS: Glucose Point of Care 192 mg/dL (70-110)
--- NOTE | 2019-08-06 10:19 | ED_ITS ---
HPI - Weakness General: Chief complaint: Weakness Stated complaint: rash/sob/dizzy Time Seen by Provider: 08/06/19 09:18 History of Present Illness: HPI Narrative: 69-year-old female comes in generally complaining weakness she has a rash that started 3 to 4 days ago states it started systemically although is more concentrated on her leg she has a history of diabetes she also is reporting sores in burning sensation in her mouth. The rash that she woke up 1 day and it was full fully spread throughout her body particularly her trunk there is coalesced areas on her legs she denies any recent tick bites. She does report a subjective fever at home although her temperature is 98.4. She denies any dyspnea she does have a slight cough is nonproductive which is chronic she had no chest pain she denies dysuria urgency or frequency. Reviewing the old chart however I find that the patient was first seen for this on by her primary care doctor at that time she stated started 4 days ago she was started on clindamycin after being given a Rocephin shot they have noted some scratches on her left alamo it seems to start from that actually cleared up according to the note she was seen back on 61 and given another shot of Rocephin and changed to Keflex and topical mupirocin with the rash still being concentrated on her legs. That was done by 1 of the midlevel's. On she was seen back in the office by Dr. Earl thought to be worsening and sent to the emergency room for evaluation and possible admission at the emergency room she was given dose of IV vancomycin and continued on the Keflex and discharged home on a follow-up visit on 62 it did seem to be improved and her Lasix was increased to 80 mg daily for swelling. There is no more office visits from that time until she comes in today. When I first seen her she tells me this entire rash started suddenly overnight 3 to 4 days ago. While her back and talked her she did admit she had all these previous visits and seems to be stemming from that. Her initial presentation she is tachycardic and hypotensive her blood pressure is improved we will give her a little more fluid resuscitation started on IV Brittney COLE Complaint: generalized weakness Onset (ago): day(s) Duration: constant Location: generalized Migration: none Severity: moderate Relieving factors: none Exacerbating factors: exertion Associated symptoms: Reports decreased appetite and myalgias; Denies chest pain, chills, melena, dysuria, fever(s), nausea or vomiting Review of Systems Const: Denies: fever(s), chills, body aches, change in appetite, fatigue or malaise ENMT: Denies: throat pain, ear or mastoid pain, nasal discharge or nasal congestion Card: Denies: chest pain, edema, dyspnea on exertion or orthopnea Resp: Denies: dyspnea, productive cough or non-productive cough GI: Denies: abdominal pain, nausea, vomiting, hematemesis, coffee ground emesis, diarrhea, constipation, bloating, hematochezia or melena : Denies: flank pain, difficulty voiding, dysuria, urinary frequency or urinary urgency Skin/Breast: Denies: rash or pruritus PFSH ED PFSH: Medical History Anxiety ASHD (arteriosclerotic heart disease) Back pain CHF (congestive heart failure) CKD (chronic kidney disease) Coronary artery disease DDD (degenerative disc disease) Decreased hearing of both ears Diabetes Diabetic polyneuropathy Duodenal ulcer Dyslipidemia Hypertension Incarcerated incisional hernia Morbid obesity Vitamin B deficiency Vitamin D deficiency Surgical History H/O esophagogastroduodenoscopy (~06/05/19) H/O hernia repair History of coronary artery stent placement Cardiac cath on 12/13/2016 with stent placement to LAD Hx of section 3 Hx of cholecystectomy Hx of tonsillectomy S/P appendectomy S/P plastic surgery 2019, panniculectomy Family History Mother CAD (coronary artery disease) Other Hypertension Social History Smoking and tobacco status: former smoker Quit status (tobacco): has quit using tobacco Former quit date comment: 2.5 PPD x 40 yrs Alcohol intake: unknown Lives independently: Yes Household members: spouse Housing: House Marital status: Pets and animals: Yes History of recent travel: No Current gender identity: Female Female Reproductive History: Date of last menstrual period: 06/05/19 Physical Exam Const: COMMON NORMALS: no acute distress GENERAL APPEARANCE: cooperative and comfortable ORIENTATION/CONSCIOUSNESS: Yes awake, Yes oriented to person, Yes oriented to place and Yes oriented to time HENMT: COMMON NORMALS: normocephalic, atraumatic, hearing grossly normal bilaterally, external ears normal, EAC's normal, TM's normal bilaterally, Normal nasal mucous membranes and turbinates present, moist oral mucous membranes and oropharynx normal HEAD & SCALP: normocephalic and atraumatic NOSE: Normal nasal mucous membranes and turbinates present EXTERNAL EAR: Yes external ears normal EXTERNAL AUDITORY CANAL: EAC's normal TYMPANIC MEMBRANE: TM's normal bilaterally Eye: COMMON NORMALS: Equal, round and reactive pupils present, EOMs intact bilaterally, conjunctivae normal and no scleral icterus CONJUNCTIVA: Yes conjunctivae normal PUPIL: Yes Equal, round and reactive pupils present Neck/C-Spine: COMMON NORMALS: full ROM, no lymphadenopathy, supple and no JVD Lymph: LYMPHATIC: no lymphadenopathy noted and no lymphedema noted Resp: COMMON NORMALS: normal respiratory effort, No retractions, No use of accessory muscles and clear to auscultation bilaterally AUSCULTATION: clear to auscultation bilaterally Cardio: COMMON NORMALS: no JVD, regular rate, regular rhythm and No murmurs present (Cardio) RATE: regular rate RHYTHM: regular rhythm GI: COMMON NORMALS: Soft to palpation and No hepatosplenomegaly present AUSCULTATION: Yes normoactive bowel sounds PALPATION: Yes Soft to palpation, No Tenderness to palpation present (GI), No Guarding due to palpation present (GI) and Yes No hepatosplenomegaly present Extremity: COMMON NORMALS: normal to inspection, capillary refill normal, no clubbing, cyanosis or edema, no calf tenderness and no pedal edema Neuro: SENSORIUM/ORIENTATION: Yes oriented to person, Yes oriented to place an d Yes oriented to time Skin: OTHER: Coalescing hives on the chest. Repeatedly appear to be most concentrated on the upper chest sparsely on the face not in the hairline there are coalesced on the right medial thigh and distal thigh and lower leg with no evidence of infection no bullae. Course Vital Signs: Vital signs: Vital Signs Temperature 97.9 F 08/09/19 08:00 Pulse Rate 88 08/09/19 08:59 Respiratory Rate 16 08/09/19 08:59 Blood Pressure 89/44 08/09/19 06:00 Pulse Oximetry 97 07/02/20 10:00 MDM - Weakness MDM Narrative: Medical decision making narrative: With her old chart and reviewed the course of care. I am suspecting she may have a systemic staphylococcal skin rash is also possible that this is some sort of immune mediated response. She still is reporting fevers over the range start on IV antibiotic discussed Dr. Toro will in place patient as an inpatient. Lab Data: Labs: Lab Results 08/06/19 08/06/19 08/06/19 Range/Units 09:36 10:05 10:05 WBC Cancelled Corrected WBC Cancelled RBC Cancelled Hgb Cancelled Hct Cancelled MCV Cancelled MCH Cancelled MCHC Cancelled RDW Cancelled Plt Count Cancelled MPV Cancelled Gran % Cancelled Neut % (Auto) Cancelled Lymph % (Auto) Cancelled [place] % (Auto) Cancelled Eos % (Auto) Cancelled Baso % (Auto) Cancelled Neut # (Auto) Cancelled Lymph # (Auto) Cancelled [place] # (Auto) Cancelled Eos # (Auto) Cancelled Baso # (Auto) Cancelled Absolute Gran (aut o) Cancelled Nucleated RBC % (a uto) Cancelled Nucleated RBCs # Cancelled ESR (0-15) mm/hr Sodium 132 L (136-145) mmol/L Potassium 4.5 (3.5-5.1) mmol/L Chloride 94 L (98-107) mmol/L Carbon Dioxide 23 (22-29) mmol/L Anion Gap 19.5 H (5-19) BUN 50 H (8-23) mg/dL Creatinine 1.6 H (0.5-0.9) mg/dL GFR Calculation 31.9 L (90-130) mL/min Glucose 250 H (65-115) mg/dL POC Glucose 192 (70-110) mg/dL Calculated Osmolal ity 281 L (285-295) mOsm/k g Lactate (0.5-2.2) mmol/L Calcium 9.5 (8.5-10.5) mg/dL Total Bilirubin 1.0 (0.15-1.2) mg/dL AST 22 (0-32) U/L ALT 15 (0-33) U/L Alkaline Phosphata se 175 H (35-105) IU/L Creatine Kinase 89 (26-192) U/L C-Reactive Protein 105.3 H (0.0-4.9) mg/L Total Protein 6.7 (6.6-8.7) g/dL Albumin 3.0 L (3.5-5.2) g/dL Globulin 3.7 (1.3-4.6) g/dL Lipase 12 L (13-60) U/L Procalcitonin (0-0.5) ng/mL TSH (0.27-4.20) uIU/ mL Lyme Ab (Western B lot) index 08/06/19 08/06/19 08/06/19 Range/Units 10:05 11:04 11:04 WBC 13.4 H Corrected WBC RBC 3.42 L Hgb 9.6 L Hct 31.8 L MCV 93.0 MCH 28.1 MCHC 30.2 RDW 16.6 H Plt Count 130 MPV 10.2 Gran % Neut % (Auto) 86.8 Lymph % (Auto) 5.4 [place] % (Auto) 5.6 Eos % (Auto) 1.6 Baso % (Auto) 0.1 Neut # (Auto) 11.6 H Lymph # (Auto) 0.7 L [place] # (Auto) 0.8 Eos # (Auto) 0.2 Baso # (Auto) 0.0 Absolute Gran (aut o) Nucleated RBC % (a uto) 0 Nucleated RBCs # 0.0 ESR 34 H (0-15) mm/hr Sodium (136-145) mmol/L Potassium (3.5-5.1) mmol/L Chloride (98-107) mmol/L Carbon Dioxide (22-29) mmol/L Anion Gap (5-19) BUN (8-23) mg/dL Creatinine (0.5-0.9) mg/dL GFR Calculation (90-130) mL/min Glucose (65-115) mg/dL POC Glucose (70-110) mg/dL Calculated Osmolal ity (285-295) mOsm/k g Lactate 2.8 H (0.5-2.2) mmol/L Calcium (8.5-10.5) mg/dL Total Bilirubin (0.15-1.2) mg/dL AST (0-32) U/L ALT (0-33) U/L Alkaline Phosphata se (35-105) IU/L Creatine Kinase (26-192) U/L C-Reactive Protein (0.0-4.9) mg/L Total Protein (6.6-8.7) g/dL Albumin (3.5-5.2) g/dL Globulin (1.3-4.6) g/dL Lipase (13-60) U/L Procalcitonin (0-0.5) ng/mL TSH (0.27-4.20) uIU/ mL Lyme Ab (Western B lot) index 08/06/19 08/06/19 Range/Units 12:10 12:10 WBC Corrected WBC RBC Hgb Hct MCV MCH MCHC RDW Plt Count MPV Gran % Neut % (Auto) Lymph % (Auto) [place] % (Auto) Eos % (Auto) Baso % (Auto) Neut # (Auto) Lymph # (Auto) [place] # (Auto) Eos # (Auto) Baso # (Auto) Absolute Gran (aut o) Nucleated RBC % (a uto) Nucleated RBCs # ESR (0-15) mm/hr Sodium (136-145) mmol/L Potassium (3.5-5.1) mmol/L Chloride (98-107) mmol/L Carbon Dioxide (22-29) mmol/L Anion Gap (5-19) BUN (8-23) mg/dL Creatinine (0.5-0.9) mg/dL GFR Calculation (90-130) mL/min Glucose (65-115) mg/dL POC Glucose (70-110) mg/dL Calculated Osmolal ity (285-295) mOsm/k g Lactate (0.5-2.2) mmol/L Calcium (8.5-10.5) mg/dL Total Bilirubin (0.15-1.2) mg/dL AST (0-32) U/L ALT (0-33) U/L Alkaline Phosphata se (35-105) IU/L Creatine Kinase (26-192) U/L C-Reactive Protein (0.0-4.9) mg/L Total Protein (6.6-8.7) g/dL Albumin (3.5-5.2) g/dL Globulin (1.3-4.6) g/dL Lipase (13-60) U/L Procalcitonin 0.54 H (0-0.5) ng/mL TSH 2.56 (0.27-4.20) uIU/ mL Lyme Ab (Western B lot) <0.90 index Discharge Plan Discharge Patient Disposition: Admitted As Inpatient Admit Provider: Marichuy Toro Clinical Impression: Cellulitis of both lower extremities, Macular erythematous rash, Septic shock, Anemia, Diabetes Condition: Stable Discharge Date/Time: 08/06/19 15:03 Coding Level of Care Code ED Flight Control Specialist for Chg Fwd Exam Comprehensive
[2019-08-06 10:40] LABS: Lactate (Lactic Acid level) 2.8 mmol/L (0.5-2.2)
[2019-08-06 10:41] LABS: Alkaline Phosphatase 175 IU/L (35-105); Anion Gap 19.5 (5-19); Blood Urea Nitrogen 50 mg/dL (8-23); C Reactive Protein 105.3 mg/L (0.0-4.9); Calcium 9.5 mg/dL (8.5-10.5); Carbon Dioxide 23 mmol/L (22-29); Chloride 94 mmol/L (98-107); Creatine Phosphokinase 89 U/L (26-192); Globulin 3.7 g/dL (1.3-4.6); Glomerular Filtration Rate 31.9 mL/min (90-130); Glucose 250 mg/dL (65-115); Lipase 12 U/L (13-60); Osmolality Calculated 281 mOsm/kg (285-295); Potassium 4.5 mmol/L (3.5-5.1); Sodium 132 mmol/L (136-145); Total Protein 6.7 g/dL (6.6-8.7)
[2019-08-06 10:48] LABS: Alanine Aminotransferase 15 U/L (0-33); Aspartate Amino Transferase 22 U/L (0-32)
[2019-08-06 11:12] LABS: Basophils % 0.1 %; Eosinophils # 0.2 10^3/uL (0.0-0.8); Eosinophils % 1.6 %; Hematocrit 31.8 % (37.0-47.0); Hemoglobin 9.6 g/dL (11.5-15.3); Lymphocytes # 0.7 10^3/uL (0.8-4.8); Lymphocytes % 5.4 %; Mean Corpuscular HGB Conc 30.2 g/dL (30.0-36.0); Mean Corpuscular Hemoglobin 28.1 pg (28.0-34.0); Mean Platelet Volume 10.2 fL (7.4-10.4); Monocytes # 0.8 10^3/uL (0.2-0.9); Monocytes % 5.6 %; Neutrophils # 11.6 10^3/uL (1.8-7.7); Neutrophils % 86.8 %; Nucleated Red Blood Cells % 0 %; Platelet Count 130 10^3/cmm (130-400); Red Blood Count 3.42 10^6/uL (4.1-5.3); Red Cell Distribution Width 16.6 % (12.1-15.1); White Blood Count 13.4 10^3/uL (4.0-10.0)
[2019-08-06] MEDS: sodium chloride 0.9% 1,000 ML 999 ML IV (11:41)
[2019-08-06 12:10] LABS: Erythrocyte Sedimentation Rate 34 mm/hr (0-15)
[2019-08-06] MEDS: vancomycin 1,000 MG in sodium chloride 0.9% 250 ML 166 MG IV (12:33)
[2019-08-06] MEDS: sodium chlor 0.9% + KCl 20 mEq 20 MEQ/1,000 ML BAG 125 MEQ IV (12:33)
[2019-08-06] MEDS: HYDROcodone-acetaminophen 5-325 mg Tablet 1 TAB PO ×2 (12:33→23:12)
[2019-08-06] MEDS: cyclobenzaprine 10 mg Tablet 5 MG PO (12:33)
--- NOTE | 2019-08-06 13:34 | P.HP_ITS ---
Providers/Chief Complaint Primary Care Provider: Shannon Earl MD Chief Complaint: rash/sob/dizzy History of Present Illness Yesika Sanchez is a 69 year old female that presented the ED for diffuse rash and itching. She reported that it has been progressively worse over the past 4 days. Patient was initially seen by her primary care provider on 07/18/2019 due to concern for a bite on her left lower leg that became red and swollen. At the time of that visit patient was given an injection of Rocephin 1 g and clindamycin 300 mg 3 times a day. Patient came back to her primary care provider's office again on 07/24/2019 continued to have sores popping up on the lower extremities spreading to her right leg she had only 1 day left of clindamycin at that time due to worsening she was instructed to discontinue clindamycin and transition to Keflex, she was given another dose of Rocephin at that time. During this visit it was noted the patient had been washing her legs with alcohol, she was discouraged from doing this and told to wash with soap and water. Patient was seen again in follow-up on 07/25/2019 by her primary care pro vider she had completed 4 shots of Rocephin and given a course of clindamycin and 1 day of Keflex due to continued worsening she was sent to the ER for further evaluation and treatment. Patient was given IV vancomycin x1 and return to home with continuation of Keflex. Patient reports that she has had worsening of diffuse redness and itching and buring for the past 4 days. Patient denies any fevers or chills, reports that her right leg has been more red in the medial thigh. Stated that she has had some scratches from her dog. Reports having chickens and other farm animals as well as indoor pets. Patient does not recall any specific tick exposure. Patient does note increased swelling in the lower extremities bilaterally and recent increase in Lasix. Review of Systems Const: Denies: fever(s) or chills Eyes: Denies: change in vision ENMT: Denies: nasal congestion Card: Reports: edema; Denies: chest pain or palpitations Resp: Reports: productive cough (Occasional cough, chronic and unchanged with scant sputum production); Denies: dyspnea or hemoptysis GI: Reports: other (Reports decreased appetite); Denies: abdominal pain, nausea, vomiting, diarrhea, constipation, hematochezia or melena : Denies: dysuria or hematuria Musc: Denies: extremity pain or muscle cramps Skin/Breast: Reports: rash, pruritus, erythema and sores; Denies: new lesions Neuro: Denies: headache(s) or dizziness Psych: Denies: anxiety or depression Endo: Denies: polyuria or hot flashes Steven/Lymph: Denies: easy bruising or easy bleeding Medications/Allergies Home Medications Medication Instructions Recorded Confirmed Last Taken Type albuterol sulfate 90 mcg/actuation 2 puff INHALATION Q6H PRN 02/08/19 08/06/19 Unknown History aerosol inhaler cholecalciferol (vitamin D3) 50 2,000 unit PO DAILY tab 04/02/19 08/06/19 08/04/19 History mcg (2,000 unit) tablet allopurinol 300 mg tablet 300 mg PO BID #60 tab 04/25/19 08/06/19 08/04/19 Rx atorvastatin 40 mg tablet 40 mg PO DAILY #30 tab 04/25/19 08/06/19 08/04/19 Rx fluticasone propionate 50 2 spray INTRANASAL DAILY #15.8 ml 05/21/19 08/06/19 08/04/19 Rx mcg/actuation nasal spray,suspension lisinopril 5 mg tablet 5 mg PO DAILY #60 tab 05/21/19 08/06/19 08/04/19 Rx diclofenac sodium [Voltaren] 4 gm TOPICAL QID 06/05/19 08/06/19 06/04/19 History nitroglycerin 0.4 mg sublingual 0.4 mg SUBLINGUAL Q5M PRN #20 tab 06/15/19 08/06/19 Unknown Rx tablet potassium chloride 20 mEq 20 meq PO BID #90 tab 06/15/19 08/06/19 08/04/19 Rx tablet,extended release meclizine 25 mg tablet 25 mg PO TID PRN #90 tab 06/26/19 08/06/19 07/25/19 Rx metoprolol tartrate 50 mg tablet 50 mg PO BID #180 tab 06/26/19 08/06/19 08/04/19 Rx isosorbide mononitrate 30 mg 30 mg PO DAILY #30 tab 07/05/19 08/06/19 08/04/19 Rx tablet,extended release 24 hr sucralfate 1 gram tablet See Rx Instructions .ROUTE 07/05/19 08/06/19 08/04/19 Rx .COMPLEX #120 tab insulin aspart U-100 100 unit/mL See Rx Instructions .ROUTE 07/10/19 08/06/19 Unknown Rx subcutaneous solution .COMPLEX #30 ml insulin detemir U-100 100 unit/mL See Rx Instructions .ROUTE 07/10/19 08/06/19 08/06/19 Rx subcutaneous solution .COMPLEX #50 milliliter loratadine [Claritin] 10 mg PO Q24H PRN 07/25/19 08/06/19 07/25/19 History pantoprazole 40 mg PO BID 07/25/19 08/06/19 07/25/19 History cyclobenzaprine 10 mg tablet 10 mg PO TID #90 tab 07/30/19 08/06/19 08/04/19 Rx furosemide 80 mg tablet 80 mg PO BID #60 tab 07/30/19 08/06/19 08/04/19 Rx clopidogrel [Plavix] 75 mg PO DAILY 08/06/19 08/06/19 08/04/19 History Allergies Allergy/AdvReac Type Severity Reaction Status Date / Time bupropion [From Wellbutrin] Allergy Unknown Unknown Verified 08/06/19 09:54 ciprofloxacin Allergy Unknown Unknown Verified 08/06/19 09:54 codeine Allergy Unknown Unknown Verified 08/06/19 09:54 fluoxetine [From Prozac] Allergy Unknown Unknown Verified 08/06/19 09:54 gabapentin Allergy Unknown Unknown Verified 08/06/19 09:54 Opioids - Morphine Analogues Allergy Unknown Unknown Verified 08/06/19 09:54 sulindac [From Clinoril] Allergy Unknown unkown Verified 08/06/19 09:54 PFSH Acute PFSH: Medical History Anxiety ASHD (arteriosclerotic heart disease) Back pain CHF (congestive heart failure) CKD (chronic kidney disease) Coronary artery disease DDD (degenerative disc disease) Decreased hearing of both ears Diabetes Diabetic polyneuropathy Duodenal ulcer Dyslipidemia Hypertension Incarcerated incisional hernia Morbid obesity Vitamin B deficiency Vitamin D deficiency Surgical History H/O esophagogastroduodenoscopy (~04/28/20) H/O hernia repair History of coronary artery stent placement Cardiac cath on 12/13/2016 with stent placement to LAD Hx of section 3 Hx of cholecystectomy Hx of tonsillectomy S/P appendectomy S/P plastic surgery 2019, panniculectomy Family History Mother CAD (coronary artery disease) Other Hypertension Social History Smoking and tobacco status: former smoker Quit status (tobacco): has quit using tobacco Former quit date comment: 2.5 PPD x 40 yrs Alcohol intake: unknown Lives independently: Yes Household members: spouse Housing: House Marital status: Pets and animals: Yes History of recent travel: No Current gender identity: Female Female Reproductive History: Date of last menstrual period: 06/05/19 Vitals/I&O/Wt Last Vital Signs Temp 98.4 F 08/06/19 09:04 Pulse 100 08/06/19 13:00 Resp 19 H 08/06/19 13:00 BP 84/48 08/06/19 13:00 Pulse Ox 98 08/06/19 13:00 Weight last 48 hrs Weight 136.078 kg Physical Exam Const: COMMON NORMALS: patient oriented x3 and alert GENERAL APPEARANCE: cooperative ORIENTATION/CONSCIOUSNESS: Yes awake, Yes oriented to person, Yes oriented to place and Yes oriented to time HENMT: COMMON NORMALS: normocephalic and atraumatic HEAD & SCALP: normocephalic and atraumatic Eye: COMMON NORMALS: Equal, round and reactive pupils present PUPIL: Yes Equal, round and reactive pupils present Neck/C-Spine: COMMON NORMALS: supple GENERAL: Yes normal visual inspection OTHER: Anterior cervical lymphadenopathy present Resp: COMMON NORMALS: normal respiratory effort and clear to auscultation bilaterally EFFORT & INSPECTION: Yes able to speak in complete sentences AUSCULTATION: clear to auscultation bilaterally, no rhonchi and no wheezes Cardio: COMMON NORMALS: No murmurs present (Cardio) OTHER: Tachycardic, regular rhythm, no appreciable murmur GI: COMMON NORMALS: Soft to palpation and non-tender INSPECTION: No abdominal distension AUSCULTATION: Yes normoactive bowel sounds PALPATION: Yes Soft to palpation : BLADDER/KIDNEY EXAM: Yes no CVA tenderness Back/Pelvis: OTHER: Diffuse rash Extremity: COMMON NORMALS: no calf tenderness NARRATIVE EXTREMITY EXAM: Nonpitting edema in the lower extremities bilaterally, negative Homans sign in t he lower extremities bilaterally Neuro: COMMON NORMALS: patient oriented x3, CN's II-XII intact bilaterally, moves all extremities and no focal motor deficits SENSORIUM/ORIENTATION: Yes alert, Yes oriented to person, Yes oriented to place and Yes oriented to time SPEECH: speech normal Psych: COMMON NORMALS: mental status grossly normal and cooperative Skin: NARRATIVE SKIN EXAM: Diffuse erythematous rash spreading from the patient's neck to her trunk anterior and posterior, lower extremities and arms. Patient has more concentrated area of erythema in the medial right thigh. No evidence of any abscess formation, no draining in the lower extremities at this time patient continues to itch and has excoriation over the arms and trunk Data : 08/06/19 11:04 08/06/19 10:05 Micro: Microbiology 08/06/19 13:05 SARA Preparation - Final Mouth 08/06/19 10:10 Blood Culture - Preliminary Blood SPECIMEN COLLECTED 08/06/19 10:05 Blood Culture - Preliminary Blood SPECIMEN COLLECTED A&P Assessment and plan (1) Cellulitis of both lower extremities: Patient has been treated for cellulitis of the lower extremities with clindamycin, 4 doses of Rocephin and transition to Keflex. Received a dose of vancomycin 2 weeks ago. Concern was cellulitis while in the ED therefore treated with vancomycin and recommended to be admitted to the hospital for further evaluation and treatment Status: Acute (2) Macular erythematous rash: Diffuse macular papular rash Concern for drug eruption versus contact dermatitis versus infectious process Patient reports cleaning her skin with alcohol, also cleaning with harsh chemicals such as bleach and Lysol Patient has diffuse rash from the neck to the lower extremities bilaterally, diffuse itching and excoriation Denies any history of exposure to poison erik, oak or sumac Patient has farm animals outside her home and also animals inside her home, uncertain of any tick exposure. Given vancomycin and doxycycline in the emergency department, will continue. Patient has received treatment including clindamycin, Keflex and Rocephin in the outpatient setting for cellulitis in the lower extremities Pro calcitonin ordered due to concern for lower extremity cellulitis with the question of diffuse infectious process versus inflammatory process. Consider biopsy if no clinical improvement in the next 24 to 48 hours Topical moderate potency steroids, triamcinolone cream as needed Benadryl as needed for itching Status: Acute Additional A&P Information Anemia with recent GI bleed and large duodenal ulcer, hemoglobin stable at this time Poorly controlled diabetes mellitus type 2: Insulin-dependent, placed on sliding scale insulin, decrease Lantus dosing as patient reports decreased appetite Dehydration with concern for prerenal acute kidney injury: Creatinine at 1.6 wit h BUN of 50, recently increased to Lasix 80 mg twice daily, will hold at this time as patient appears to be intravascularly volume depleted along with hypotensive. Hypotension: Patient recently started on Lasix 80 mg twice daily, holding at this time, holding metoprolol, will hold Imdur if patient remains hypotensive, hold lisinopril 5 mg daily Recent diagnosis of duodenal ulcer and upper GI bleed: Anemia appears to be stable at this time, no evidence of any continued bleeding Coronary artery disease: Without acute chest pain or shortness of breath COPD: Without acute exacerbation Chronic kidney disease: With increased from baseline, appears to be prerenal, holding Lasix and giving IV fluids as noted above Prior history of hypertension: Holding antihypertensives due to hypotension Morbid obesity Vitamin B deficiency Vitamin D deficiency DVT prophylaxis: SCDs, no pharmacologic prophylaxis due to recent GI bleed and anemia Diet: Clear liquid, increase to cardiac, carbohydrate consistent as tolerated Attestations 2 Medical Necessity Statement*: Hospitalization due to diffuse rash with concern for cellulitis and hypotension. Expected stay greater than 2 midnights. Coding Level of Care Code Acute Microbiology Lab Assistant for g Fwd Exam Comprehensive Diagnoses Cellulitis of both lower extremities L03.115; L03.116 Macular erythematous rash L53.8
[2019-08-06 15:28] LABS: Glucose Point of Care 191 mg/dL (70-110)
[2019-08-06] MEDS: sodium chloride 0.9% 1,000 ML 50 ML IV (15:59)
[2019-08-06 16:36] LABS: Thyroid Stimulating Hormone 2.56 uIU/mL (0.27-4.20)
[2019-08-06 17:18] LABS: Procalcitonin 0.54 ng/mL (0-0.5)
[2019-08-06] MEDS: allopurinol 300 mg Tablet PO (17:33)
[2019-08-06] MEDS: sucralfate 1 gm Tablet PO ×2 (17:33→21:09)
[2019-08-06] MEDS: pantoprazole DR 40 mg Tablet PO (17:33)
[2019-08-06] MEDS: acetaminophen 325 mg Tablet 650 MG PO (17:44)
[2019-08-06] MEDS: lanolin oint 7 gm 1 APPLIC TOPICAL (17:44)
[2019-08-06 18:06] LABS: Rapid Strep A Test Negative (Negative)
--- NOTE | 2019-08-06 19:00 | PC.NURSE ---
Upon admission to the unit patient stated that she had not voided since 10 am this morning. Patient was bladder scanned and had less than 55 mL of urine in her bladder. Patient got up to BSC to void and stated that she lost the urge to void. Will continue to monitor.
[2019-08-06] MEDS: insulin glargine 100 units/1 mL 50 UNIT SUBCUT (21:08)
[2019-08-06] MEDS: sodium chloride 0.9% (100 ml) 100 ML 10 ML (21:13)
[2019-08-06] MEDS: doxycycline 100 MG in sodium chloride 0.9% (plus) 100 ML IV (21:13)
[2019-08-06 21:36] LABS: Glucose Point of Care 163 mg/dL (70-110)
--- NOTE | 2019-08-06 21:45 | PC.NURSE ---
Pt attempted x2 to urinate on BSC. States she has the urge but cannot void after multiple attempts today. Bladder scan was completed ranging 40-240ml. Unable to get a good reading. Dr. Mora notified and order for alvarado received. Alvarado placed and 500ml urine returned. Urine sample obtained and taken to lab. No further complications at this time. Pt resting comfortably in bed.
--- NOTE | 2019-08-06 22:21 | PC.NURSE ---
Addendum entered by Jill Vidales RN 08/06/19 22:26: Time of note: 2114 Original Note: Pt resting in bed. No complaints of pain but does complain of itching and buring to skin due to generalized red, raised rash covering entire body. Noted to have abrasions scattered as well due to scratching per patient report. Pt is alert and oriented but does remain forgetful. Attempted to urinate on BSC but was unsuccessful. Lungs diminished in bilateral bases. SR on telemetry with HR in the 90s. Pt does appear to be anxious and states she thinks it is due to the constant itching. Blood sugar was obtained and treated, see MAR. No further needs identified at this time. Call light in reach.
[2019-08-06 22:24] LABS: Add Urine Microscopic? YES; Bilirubin Urine 1+ (NEGATIVE); Blood Urine Neg (Negative); Glucose Urine UA Norm (Normal); Ketones Urine Negative (Negative); Leukocyte Esterase Urine 2+ (Negative); Nitrate Urine Negative (Negative); Protein Urine Neg (Negative); Specific Gravity, Urine 1.015 (1.005-1.030); Urine Appearance SL Hazy (CLEAR); Urine Color Yellow (Yellow); Urobilinogen Urine 1 mg/dL (Negative); pH Urine 5 (5-7)
[2019-08-06 22:25] LABS: Bacteria Urine 2+; RBC Urine 0-4 /hpf (0-2); Squamous Epithelial Cell Urine 0-4 (0-5); WBC Urine >100 /hpf (0-5)
[2019-08-06 22:26] LABS: Add Urine Culture? Yes; Hyaline Casts Urine 0-4
[2019-08-06] MEDS: diphenhydrAMINE 50 mg Capsule PO (23:12)
[2019-08-07] VITALS (50 sets, daily range): BP systolic 59–131; BP diastolic 30–79; PULSE 85–130; RESP 12–29; TEMP 37.2–37.6; O2SAT 61–100
[2019-08-07] MEDS: morphine 4 mg/mL SDV 1 mL 2 MG IVP ×2 (02:26→22:39)
[2019-08-07] MEDS: ondansetron 2 mg/ML SDV 2 mL 4 MG IVP (03:45)
--- NOTE | 2019-08-07 03:56 | PC.NURSE ---
Pt very anxious and nauseous. zofran administered per orders, see MAR. Complains of pain in right groin and generalized all over body. Repositioned patient to left side. Provided warm blankets. Applied 2 L NC for comfort purposes. Darkenered room. Pt attempting to rest. Monitoring closely.
[2019-08-07 04:06] LABS: Glucose Point of Care 119 mg/dL (70-110)
[2019-08-07 06:33] LABS: Glucose Point of Care 151 mg/dL (70-110)
--- NOTE | 2019-08-07 06:38 | PC.NURSE ---
Pt resting in bed at this time. Did not rest well during this shift. Had episode throughout the night where Pt got very anxious and started shaking and itching and crying. Stated pain was 10/10 during this episode. PRN medications administered, see MAR. This RN sat with pt until pt calmed down. Pt's HR trending up to 120s with agitation. Monitoring.
[2019-08-07] MEDS: fluconazole 100 mg Tablet 200 MG PO (08:22)
[2019-08-07] MEDS: atorvastatin 40 mg Tablet PO (08:23)
[2019-08-07] MEDS: allopurinol 300 mg Tablet PO ×2 (08:23→17:31)
[2019-08-07] MEDS: acetaminophen 325 mg Tablet 650 MG PO (08:23)
[2019-08-07] MEDS: pantoprazole DR 40 mg Tablet PO ×2 (08:23→17:31)
[2019-08-07] MEDS: sucralfate 1 gm Tablet PO ×4 (08:23→21:06)
[2019-08-07] MEDS: clopidogrel 75 mg Tablet PO (08:23)
[2019-08-07] MEDS: metoprolol tartrate 25 mg Tablet PO (08:24)
[2019-08-07] MEDS: insulin glargine 100 units/1 mL 50 UNIT SUBCUT ×2 (08:24→21:15)
[2019-08-07] MEDS: isosorbide mononitrate ER 30 mg Tablet PO (08:24)
[2019-08-07] MEDS: fluticasone nasal spray 16gm Btl 2 SPRAY INTRANASAL (08:25)
[2019-08-07] MEDS: diphenhydrAMINE 50 mg Capsule PO ×2 (08:27→22:55)
[2019-08-07] MEDS: meclizine 25 mg tablet PO ×3 (08:28→22:31)
[2019-08-07] MEDS: piperacillin-tazobactam 3.375 GM in sodium chloride 0.9% (plus) 50 ML IV ×3 (08:35→23:48)
--- NOTE | 2019-08-07 08:50 | P.PN_ITS ---
Subjective Subjective: Interval history: Patient awake in bed at time of exam. Reported feeling chills. Discussed with patient concern for urinary tract infection and need for broadening of antibiotic coverage. Patient reports continued itching. She denies any cough. Patient denies any abdominal pain, no chest pain or shortness of breath. Reports feeling anxious overnight due to itching. No sore throat today Vitals/I&O/Wt Last Vital Signs Temp 97.7 F 08/06/19 21:01 Pulse 126 H 08/07/19 06:27 Resp 18 08/07/19 05:00 BP 91/55 08/07/19 06:27 Pulse Ox 100 08/07/19 05:00 08/06/19 08/07/19 08/07/19 22:59 06:59 14:59 Intake Total 490.333 / 490.333 100 / 590.333 Output Total 500 / 500 1200 / 1700 Balance -9.667 / -9.667 -1100 / -1109.667 Weight last 48 hrs Weight 131.633 kg Weight 131.633 kg Weight 136.078 kg Physical Exam Const: COMMON NORMALS: patient oriented x3 and alert GENERAL APPEARANCE: cooperative NUTRITIONAL APPEARANCE: obese ORIENTATION/CONSCIOUSNESS: Yes awake, Yes oriented to person, Yes oriented to place and Yes oriented to time HENMT: COMMON NORMALS: normocephalic and atraumatic HEAD & SCALP: normocephalic and atraumatic Eye: COMMON NORMALS: Equal, round and reactive pupils present PUPIL: Yes Equal, round and reactive pupils present Neck/C-Spine: COMMON NORMALS: supple GENERAL: Yes normal visual inspection OTHER: Anterior cervical lymphadenopathy present Resp: COMMON NORMALS: normal respiratory effort and clear to auscultation bilaterally EFFORT & INSPECTION: Yes able to speak in complete sentences AUSCULTATION: clear to auscultation bilaterally, no rhonchi and no wheezes Cardio: COMMON NORMALS: No murmurs present (Cardio) OTHER: Tachycardic, regular rhythm, no appreciable murmur GI: COMMON NORMALS: Soft to palpation and non-tender INSPECTION: No abdominal distension AUSCULTATION: Yes normoactive bowel sounds PALPATION: Yes Soft to palpation : OTHER: Khan catheter in place, erythema and drainaged under pannus L>R. Back/Pelvis: OTHER: Diffuse maculopapular rash from the neck to the feet bilaterally, sparing face Extremity: COMMON NORMALS: no calf tenderness NARRATIVE EXTREMITY EXAM: Nonpitting edema in the lower extremities bilaterally, negative Homans sign in the lower extremities bilaterally Neuro: COMMON NORMALS: patient oriented x3, CN's II-XII intact bilaterally, moves all extremities and no focal motor deficits SENSORIUM/ORIENTATION: Yes alert, Yes oriented to person, Yes oriented to place and Yes oriented to time SPEECH: speech normal Psych: COMMON NORMALS: mental status grossly normal and cooperative Skin: NARRATIVE SKIN EXAM: Diffuse erythematous rash spreading from the patient's neck to her trunk anterior and posterior, lower extremities and arms. Patient has more concentrated area of erythema in the medial right thigh. No evidence of any abscess formation, no draining in the lower extremities at this time patient continues to itch and has excoriation over the arms and trunk Urinary Catheter Management^: Khan: Cath Placed During This Visit: yes Reason for Continuing Indwelling Catheter: Acute Urinary Retention or Obstruction Urinary Catheter Date of Insertion: 08/06/19 Urinary Catheter Time of Insertion: 21:45 Data : 08/06/19 11:04 08/06/19 10:05 Micro: Microbiology 08/06/19 13:05 SARA Preparation - Final Mouth 08/06/19 10:10 Blood Culture - Preliminary Blood SPECIMEN COLLECTED 08/06/19 10:05 Blood Culture - Preliminary Blood SPECIMEN COLLECTED A&P Assessment and plan (1) Cellulitis of both lower extremities: Patient has been treated for cellulitis of the lower extremities with clindamycin, 4 doses of Rocephin and transition to Keflex. Received a dose of vancomycin 2 weeks ago. Continue broad-spectrum antibiotic coverage at this time. Continue with linezolid and Zosyn Status: Acute (2) Macular erythematous rash: Diffuse macular papular rash Concern for drug eruption versus contact dermatitis versus infectious process Patient reports cleaning her skin with alcohol, also cleaning with harsh chemicals such as bleach and Lysol Reported to have farm animals and pets within her home. Disheveled with poor hygiene on admission. Continuing to treat with broad-spectrum antibiotics Viral panel ordered and pending, tularemia work-up pending, further tick panel pending, repeat ESR and CRP. Absence of cough, initially presented with mild throat pain that is now resolved. Facial sparing of the rash Status: Acute Additional A&P Information Acute cystitis: Started on Zosyn, urinary retention requiring Khan catheter placement overnight. Anemia with recent GI bleed and large duodenal ulcer, hemoglobin stable at this time Poorly controlled diabetes mellitus type 2: Insulin-dependent, placed on sliding scale insulin, decrease Lantus dosing as patient reports decreased appetite Dehydration with concern for prerenal acute kidney injury: Continuing to hold Lasix and lisinopril. Recheck labs pending for today Hypotension: Holding lisinopril and Lasix. Continue on metoprolol at this time. Continue with IV fluids and close monitoring. Recent diagnosis of duodenal ulcer and upper GI bleed: Anemia appears to be stable at this time, no evidence of any continued bleeding Coronary artery disease: Without acute chest pain or shortness of breath COPD: Without acute exacerbation Chronic kidney disease: With increased from baseline, appears to be prerenal, holding Lasix and giving IV fluids as noted above Prior history of hypertension: Holding antihypertensives due to hypotension Morbid obesity Vitamin B deficiency Vitamin D deficiency DVT prophylaxis: SCDs, no pharmacologic prophylaxis due to recent GI bleed and anemia Diet: Clear liquid, increase to cardiac, carbohydrate consistent as tolerated Attestations Medical Necessity Statement*: Further labs pending for today we will follow-up with results and make further adjustments as indicated. Urinary tract infection diagnosed requiring Khan catheter due to urine retention. Continued hospitalization due to hypotension and diffuse maculopapular rash Coding Level of Care Code Acute [employer] for [facility] Diagnoses Cellulitis of both lower extremities L03.115; L03.116 Macular erythematous rash L53.8
[2019-08-07 08:55] LABS: Glucose Point of Care 272 mg/dL (70-110)
--- NOTE | 2019-08-07 09:34 | XRR_ITS ---
PROCEDURE INFORMATION: Exam: XR Chest, 1 View Exam date and time: 08/07/2019 9:53 AM Age: 69 years old Clinical indication: Fever TECHNIQUE: Imaging protocol: XR of the chest Views: 1 view. COMPARISON: CR Chest 1 [place] [id number] 01/15/2019 1:25 PM FINDINGS: Limitations: Patient rotation to the left. Lungs: There is discoid atelectasis in the left lung base. No focal peripheral lung consolidation, air bronchogram formation, or silhouette sign. Pleural space: No pleural effusion or pneumothorax. Heart/Mediastinum: The cardiac silhouette is not enlarged when allowing for the portable rotated nature of the exam. The mediastinal contours are within normal limits when allowing for patient rotation. Vasculature: The thoracic aorta is atherosclerotic. Bones/joints: No acute osseous abnormality. XR/XR chest 1V portable [id number] IMPRESSION: Left basilar atelectasis.
[2019-08-07 09:47] LABS: Basophils % 0.2 %; Eosinophils # 0.3 10^3/uL (0.0-0.8); Eosinophils % 2.4 %; Hemoglobin 8.7 g/dL (11.5-15.3); Lymphocytes # 0.6 10^3/uL (0.8-4.8); Mean Corpuscular Hemoglobin 27.4 pg (28.0-34.0); Mean Corpuscular Volume 91.5 fL (81-99); Mean Platelet Volume 9.9 fL (7.4-10.4); Monocytes # 0.6 10^3/uL (0.2-0.9); Monocytes % 4.7 %; Neutrophils # 10.3 10^3/uL (1.8-7.7); Nucleated Red Blood Cells % 0 %; Platelet Count 120 10^3/cmm (130-400); Red Blood Count 3.17 10^6/uL (4.1-5.3); Red Cell Distribution Width 16.5 % (12.1-15.1); White Blood Count 11.8 10^3/uL (4.0-10.0)
[2019-08-07] MEDS: linezolid premix 600 MG/300 ML PREMIX 300 MG IV ×2 (09:58→21:08)
[2019-08-07 10:12] LABS: Alanine Aminotransferase 15 U/L (0-33); Albumin Level 2.4 g/dL (3.5-5.2); Alkaline Phosphatase 135 IU/L (35-105); Anion Gap 19.4 (5-19); Aspartate Amino Transferase 25 U/L (0-32); Blood Urea Nitrogen 39 mg/dL (8-23); Calcium 8.7 mg/dL (8.5-10.5); Carbon Dioxide 20 mmol/L (22-29); Chloride 95 mmol/L (98-107); Glomerular Filtration Rate 40.5 mL/min (90-130); Glucose 255 mg/dL (65-115); Osmolality Calculated 276 mOsm/kg (285-295); Potassium 4.4 mmol/L (3.5-5.1); Sodium 130 mmol/L (136-145); Total Bilirubin 0.9 mg/dL (0.15-1.2); Total Protein 5.4 g/dL (6.6-8.7)
[2019-08-07 10:13] LABS: C Reactive Protein 95.4 mg/L (0.0-4.9)
[2019-08-07] MEDS: sodium chloride 0.9% 500 ML IV (10:32)
[2019-08-07 10:47] LABS: Erythrocyte Sedimentation Rate 21 mm/hr (0-15)
[2019-08-07] MEDS: doxycycline 100 MG in sodium chloride 0.9% (plus) 100 ML IV ×2 (10:51→22:30)
[2019-08-07] MEDS: sodium chloride 0.9% 1,000 ML 50 ML IV (10:54)
[2019-08-07] MEDS: nystatin powder 15 gm Btl 1 APPLIC TOPICAL (10:56)
[2019-08-07 11:32] LABS: Glucose Point of Care 246 mg/dL (70-110)
[2019-08-07 11:51] LABS: Lactic Sepsis W/Reflex 2.3 mmol/L (0.5-2.2)
--- NOTE | 2019-08-07 12:00 | PC.NURSE ---
hypotension Patient noted to be hypotensive. Notified Dr. Toro, order for 500ml NS bolus over 1 hour to be given. Order for Levophed also given based on BP after bolus. Levophed was started at the end of the bolus d/t continued hypotension. Notifed Dr. Toro that the Levophed was started.
[2019-08-07 12:25] LABS: Lyme AB Screen <0.90 index
[2019-08-07 13:22] LABS: Reflex Lactate Order REFLEX LACTIC ORDERD
[2019-08-07 15:35] LABS: Lactic Acid level (Lactate) 1.6 mmol/L (0.5-2.2)
[2019-08-07 17:21] LABS: Glucose Point of Care 301 mg/dL (70-110)
[2019-08-07] MEDS: HYDROcodone-acetaminophen 5-325 mg Tablet 1 TAB PO ×2 (17:30→21:28)
--- NOTE | 2019-08-07 18:05 | PC.NURSE ---
Phone call to family Patient asked this nurse to call her and update him on her condition. was called and with no answer. Patient notified.
--- NOTE | 2019-08-07 18:12 | PC.NURSE ---
Phone call to family Patients called this nurse and this nurse updated on patients condition per request. Patient has been notified.
[2019-08-07 18:45] LABS: Glucose Point of Care 234 mg/dL (70-110)
[2019-08-07] MEDS: metoprolol tartrate 25 mg Tablet 12.5 MG PO (21:07)
[2019-08-08] VITALS (49 sets, daily range): BP systolic 76–131; BP diastolic 39–65; PULSE 69–90; RESP 12–26; TEMP 36.5–36.7; O2SAT 74–100
[2019-08-08] MEDS: triamcinolone 0.1% cream 15 gm 1 APPLIC TOPICAL ×2 (03:17→14:19)
[2019-08-08] MEDS: diphenhydrAMINE 50 mg Capsule PO ×3 (03:25→20:58)
[2019-08-08] MEDS: HYDROcodone-acetaminophen 5-325 mg Tablet 1 TAB PO ×3 (04:43→16:33)
[2019-08-08] MEDS: sucralfate 1 gm Tablet PO ×4 (06:11→20:58)
[2019-08-08] MEDS: meclizine 25 mg tablet PO ×3 (06:11→20:58)
[2019-08-08 07:31] LABS: Glucose Point of Care 246 mg/dL (70-110)
[2019-08-08 07:41] LABS: Glucose Point of Care 264 mg/dL (70-110)
[2019-08-08 08:03] LABS: Basophils % 0.2 %; Eosinophils # 0.6 10^3/uL (0.0-0.8); Eosinophils % 5.3 %; Hematocrit 30.2 % (37.0-47.0); Hemoglobin 8.9 g/dL (11.5-15.3); Lymphocytes # 1.6 10^3/uL (0.8-4.8); Lymphocytes % 14.5 %; Mean Corpuscular HGB Conc 29.5 g/dL (30.0-36.0); Mean Corpuscular Hemoglobin 27.6 pg (28.0-34.0); Mean Corpuscular Volume 93.5 fL (81-99); Mean Platelet Volume 9.5 fL (7.4-10.4); Monocytes # 0.8 10^3/uL (0.2-0.9); Monocytes % 7.1 %; Neutrophils # 8.1 10^3/uL (1.8-7.7); Neutrophils % 72.4 %; Nucleated Red Blood Cells % 0 %; Platelet Count 110 10^3/cmm (130-400); Red Blood Count 3.23 10^6/uL (4.1-5.3); Red Cell Distribution Width 17.1 % (12.1-15.1); White Blood Count 11.2 10^3/uL (4.0-10.0)
[2019-08-08] MEDS: insulin glargine 100 units/1 mL 60 UNIT SUBCUT ×2 (08:42→20:59)
[2019-08-08] MEDS: sodium chloride 0.9% 1,000 ML 50 ML IV (08:43)
[2019-08-08] MEDS: fluconazole 100 mg Tablet 200 MG PO (08:45)
[2019-08-08] MEDS: piperacillin-tazobactam 3.375 GM in sodium chloride 0.9% (plus) 50 ML IV (08:45)
[2019-08-08] MEDS: allopurinol 300 mg Tablet PO ×2 (08:46→17:41)
[2019-08-08] MEDS: lisinopril 5 mg Tablet PO (08:46)
[2019-08-08] MEDS: isosorbide mononitrate ER 30 mg Tablet PO (08:46)
[2019-08-08] MEDS: metoprolol tartrate 25 mg Tablet 12.5 MG PO (08:46)
[2019-08-08] MEDS: pantoprazole DR 40 mg Tablet PO ×2 (08:46→17:41)
[2019-08-08] MEDS: clopidogrel 75 mg Tablet PO (08:46)
[2019-08-08] MEDS: atorvastatin 40 mg Tablet PO (08:46)
[2019-08-08] MEDS: nystatin powder 15 gm Btl 1 APPLIC TOPICAL ×2 (08:49→17:41)
[2019-08-08] MEDS: fluticasone nasal spray 16gm Btl 2 SPRAY INTRANASAL (08:49)
[2019-08-08 09:00] LABS: Alanine Aminotransferase 17 U/L (0-33); Albumin Level 2.4 g/dL (3.5-5.2); Alkaline Phosphatase 140 IU/L (35-105); Anion Gap 15.4 (5-19); Aspartate Amino Transferase 25 U/L (0-32); Blood Urea Nitrogen 33 mg/dL (8-23); Calcium 8.6 mg/dL (8.5-10.5); Carbon Dioxide 22 mmol/L (22-29); Chloride 95 mmol/L (98-107); Globulin 2.9 g/dL (1.3-4.6); Glomerular Filtration Rate 40.5 mL/min (90-130); Glucose 397 mg/dL (65-115); Osmolality Calculated 280 mOsm/kg (285-295); Potassium 4.4 mmol/L (3.5-5.1); Sodium 128 mmol/L (136-145); Total Bilirubin 0.9 mg/dL (0.15-1.2); Total Protein 5.3 g/dL (6.6-8.7)
[2019-08-08 09:01] LABS: C Reactive Protein 122.2 mg/L (0.0-4.9)
[2019-08-08 09:11] LABS: Slide Review Slide Review Perform
[2019-08-08 09:38] LABS: Erythrocyte Sedimentation Rate 16 mm/hr (0-15)
[2019-08-08] MEDS: linezolid premix 600 MG/300 ML PREMIX 300 MG IV (10:00)
[2019-08-08 11:19] LABS: Procalcitonin 0.58 ng/mL (0-0.5)
[2019-08-08] MEDS: doxycycline 100 MG in sodium chloride 0.9% (plus) 100 ML IV ×2 (12:44→21:04)
[2019-08-08 13:00] LABS: EBV IGG TEST >750.00 U/mL; EBV IGM TEST <36.00 U/mL
[2019-08-08 14:55] LABS: Eosinophil Urine No Eosinophils Seen; Urine Eosinophil Count 0 (0-0)
--- NOTE | 2019-08-08 17:04 | P.PN_ITS ---
Subjective Subjective: Interval history: Patient awake sitting in chair at time of exam today. Reports that itching has improved with Benadryl. Has blistering development on the right flank. Vitals/I&O/Wt Last Vital Signs Temp 97.7 F 08/08/19 15:00 Pulse 69 08/08/19 15:00 Resp 17 08/08/19 15:00 BP 94/55 08/08/19 15:00 Pulse Ox 98 08/08/19 15:00 08/08/19 08/08/19 08/08/19 06:59 14:59 22:59 Intake Total 1356.873 / 4102.623 592 / 592 174.04 / 766.04 Output Total 750 / 1675 Balance 606.873 / 2427.623 592 / 592 174.04 / 766.04 Weight last 48 hrs Weight 131.36 kg Weight 131.633 kg Weight 131.633 kg Physical Exam Const: COMMON NORMALS: patient oriented x3 and alert GENERAL APPEARANCE: cooperative NUTRITIONAL APPEARANCE: obese ORIENTATION/CONSCIOUSNESS: Yes awake, Yes oriented to person, Yes oriented to place and Yes oriented to time HENMT: COMMON NORMALS: normocephalic and atraumatic HEAD & SCALP: normocephalic and atraumatic Eye: COMMON NORMALS: Equal, round and reactive pupils present PUPIL: Yes Equal, round and reactive pupils present Neck/C-Spine: COMMON NORMALS: supple GENERAL: Yes normal visual inspection OTHER: Anterior cervical lymphadenopathy present Resp: COMMON NORMALS: normal respiratory effort and clear to auscultation manuelito aterally EFFORT & INSPECTION: Yes able to speak in complete sentences AUSCULTATION: clear to auscultation bilaterally, no rhonchi and no wheezes Cardio: COMMON NORMALS: No murmurs present (Cardio) OTHER: Regular rate and rhythm, no appreciable murmur GI: COMMON NORMALS: Soft to palpation and non-tender INSPECTION: No abdominal distension AUSCULTATION: Yes normoactive bowel sounds PALPATION: Yes Soft to palpation : COMMON NORMALS: Yes no CVA tenderness BLADDER/KIDNEY EXAM: Yes no CVA tenderness OTHER: Khan catheter in place, erythema and drainaged under pannus L>R. Back/Pelvis: COMMON NORMALS: no CVA tenderness OTHER: Diffuse maculopapular rash from the neck to the feet bilaterally, sparing face. Patient has bullous changes on the right flank Extremity: COMMON NORMALS: no calf tenderness NARRATIVE EXTREMITY EXAM: Nonpitting edema in the lower extremities bilaterally, negative Homans sign in the lower extremities bilaterally Neuro: COMMON NORMALS: patient oriented x3, CN's II-XII intact bilaterally, moves all extremities and no focal motor deficits SENSORIUM/ORIENTATION: Yes alert, Yes oriented to person, Yes oriented to place and Yes oriented to time SPEECH: speech normal Psych: COMMON NORMALS: mental status grossly normal and cooperative Skin: NARRATIVE SKIN EXAM: Diffuse erythematous rash spreading from the patient's neck to her trunk anterior and posterior, lower extremities and arms. Patient has more concentrated area of erythema in the medial right thigh. Bullae on the right flank Urinary Catheter Management^: Khan: Cath Placed During This Visit: yes Reason for Continuing Indwelling Catheter: Accurate Measurement of Urinary Output in Critically Ill Patients Urinary Catheter Date of Insertion: 08/06/19 Urinary Catheter Time of Insertion: 21:45 Data : 08/08/19 07:50 08/08/19 07:50 Micro: Microbiology 08/06/19 17:35 Group A Streptococcus Rapid Screen - Preliminary Throat 08/06/19 18:35 Urine Culture - Preliminary Urine Catheterized Gram Negative Rods A&P Assessment and plan (1) Cellulitis of both lower extremities: Patient has been treated for cellulitis of the lower extremities with clindamycin, 4 doses of Rocephin and transition to Keflex. Received a dose of vancomycin 2 weeks ago. Discontinued Zosyn, continued on Primaxin and vancomycin. Status: Acute (2) Macular erythematous rash: Diffuse macular papular rash Concern for drug eruption versus contact dermatitis versus infectious process Antibiotic coverage de-escalated due to concern for drug eruption, Zosyn discontinued Viral panel ordered and pending, tularemia work-up pending, further tick panel pending Start on burst of prednisone today 40 mg daily for 5 days Status: Acute Additional A&P Information Acute cystitis: Continued on Primaxin today, urine culture showing gram-negative rods Anemia with recent GI bleed and large duodenal ulcer, hemoglobin stable at this time Poorly controlled diabetes mellitus type 2: Insulin-dependent, increase Lantus to 60 units twice daily Dehydration with concern for prerenal acute kidney injury: Renal function now at baseline Hypotension: Holding lisinopril and Lasix. Continue on metoprolol decreased dose. Required Levophed Recent diagnosis of duodenal ulcer and upper GI bleed: Anemia appears to be stable at this time, no evidence of any continued bleeding Coronary artery disease: Without acute chest pain or shortness of breath COPD: Without acute exacerbation Chronic kidney disease: With increased from baseline, appears to be prerenal, holding Lasix and giving IV fluids as noted above Prior history of hypertension: Holding antihypertensives due to hypotension Morbid obesity Vitamin B deficiency Vitamin D deficiency DVT prophylaxis: SCDs, no pharmacologic prophylaxis due to recent GI bleed and anemia Diet: increased to soft diet, carb consist Attestations Medical Necessity Statement*: Patient requires continued hospitalization due to concern for diffuse macular papular rash with acute cystitis Coding Level of Care Code 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
[2019-08-08 17:05] LABS: Glucose Point of Care 285 mg/dL (70-110)
[2019-08-08] MEDS: predniSONE 20 mg Tablet 40 MG PO (18:17)
--- NOTE | 2019-08-08 18:19 | P.CONIM_ITS ---
Providers/Reason For Consult Consulting Physican/Specialty*: Pulmonary critical care medicine Reason for Consult*: Septic shock Attending Physician: Marichuy Toro DO Primary Care Provider: Shannon Earl MD History of Present Illness History of Present Illness Yesika Sanchez is a 69 year old female with an interesting medical history. I have reviewed her chart in detail. Based on the medical record, on July 17 the patient presented to her primary care provider's office with left lower extremity wound that had grown in size and was erythematous and warm. The patient at the time was given a dose of ceftriaxone and started on clindamycin. The patient went back to her primary care doctor's office on July 23 at this time, the clindamycin was discontinued and the patient was started on Keflex as the wound did not get better. The patient went back to her primary care do ctor's office the very next day and was found to have no significant improvement in her wound. The patient then presented to the ED on July 24 and it appears she was given a dose of vancomycin and sent home with Keflex. The patient went back to her primary care doctor's office on July 29 with bilateral lower extremity swelling and was started on furosemide 80 mg twice a day. The patient presented to the ED on August 05 with diffuse morbilliform and papular macular rash which were itchy and of 4 days duration the patient was also found to be suffering from acute kidney injury, hypertensive and found to have urinary tract infection. The patient was treated with broad-spectrum antibiotic. Over the last few days her hemodynamics has gotten better. She was treated with some IV fluid. Curre ntly she is off of norepinephrine. The patient is a very poor historian. The patient tells me today that she is feeling better and her rash is better. The itchiness has gotten better with Benadryl. The patient is currently on broad-spectrum antibiotic including doxycycline, linezolid, imipenem, fluconazole. The patient has a 5.3% eosinophil and the total eosinophil count is more than 500. Her blood culture has been negative. There is no ulcer in the mucous membrane. New blister ruptured in the right lateral chest wall. Review of Systems Narrative: The review of system is quite unreliable. The patient thinks the rash and itchiness is getting better. She denies any chest pain, resting short ness of breath, wheezing, abdominal pain, nausea vomiting or diarrhea. Meds/Allergies Home Medications and Allergies Home Medications Medication Instructions Recorded Confirmed Last Taken Type albuterol sulfate 90 mcg/actuation 2 puff INHALATION Q6H PRN 02/08/19 08/06/19 Unknown History aerosol inhaler cholecalciferol (vitamin D3) 50 2,000 unit PO DAILY tab 04/02/19 08/06/19 08/04/19 History mcg (2,000 unit) tablet allopurinol 300 mg tablet 300 mg PO BID #60 tab 04/25/19 08/06/19 08/04/19 Rx atorvastatin 40 mg tablet 40 mg PO DAILY #30 tab 04/25/19 08/06/19 08/04/19 Rx fluticasone propionate 50 2 spray INTRANASAL DAILY #15.8 ml 05/21/19 08/06/19 08/04/19 Rx mcg/actuation nasal spray,suspension lisinopril 5 mg tablet 5 mg PO DAILY #60 tab 05/21/19 08/06/19 08/04/19 Rx diclofenac sodium [Voltaren] 4 gm TOPICAL QID 06/05/19 08/06/19 06/04/19 History nitroglycerin 0.4 mg sublingual 0.4 mg SUBLINGUAL Q5M PRN #20 tab 06/15/19 08/06/19 Unknown Rx tablet potassium chloride 20 mEq 20 meq PO BID #90 tab 06/15/19 08/06/19 08/04/19 Rx tablet,extended release meclizine 25 mg tablet 25 mg PO TID PRN #90 tab 06/26/19 08/06/19 07/25/19 Rx metoprolol tartrate 50 mg tablet 50 mg PO BID #180 tab 06/26/19 08/06/19 08/04/19 Rx isosorbide mononitrate 30 mg 30 mg PO DAILY #30 tab 07/05/19 08/06/19 08/04/19 Rx tablet,extended release 24 hr sucralfate 1 gram tablet See Rx Instructions .ROUTE 07/05/19 08/06/19 08/04/19 Rx .COMPLEX #120 tab insulin aspart U-100 100 unit/mL See Rx Instructions .ROUTE 07/10/19 08/06/19 Unknown Rx subcutaneous solution .COMPLEX #30 ml insulin detemir U-100 100 unit/mL See Rx Instructions .ROUTE 0608/06/19 08/06/19 Rx subcutaneous solution .COMPLEX #50 milliliter loratadine [Claritin] 10 mg PO Q24H PRN 07/25/19 08/06/19 07/25/19 History pantoprazole 40 mg PO BID 07/25/19 08/06/19 07/25/19 History cyclobenzaprine 10 mg tablet 10 mg PO TID #90 tab 07/30/19 08/06/19 08/04/19 Rx furosemide 80 mg tablet 80 mg PO BID #60 tab 07/30/19 08/06/19 08/04/19 Rx clopidogrel [Plavix] 75 mg PO DAILY 08/06/19 08/06/19 08/04/19 History Allergies Allergy/AdvReac Type Severity Reaction Status Date / Time bupropion [From Wellbutrin] Allergy Unknown Unknown Verified 08/08/19 18:28 ciprofloxacin Allergy Unknown Unknown Verified 08/08/19 18:28 codeine Allergy Unknown Unknown Verified 08/08/19 18:28 fluoxetine [From Prozac] Allergy Unknown Unknown Verified 08/08/19 18:28 gabapentin Allergy Unknown Unknown Verified 08/08/19 18:28 Opioids - Morphine Analogues Allergy Unknown Unknown Verified 08/08/19 18:28 sulindac [From Clinoril] Allergy Unknown unkown Verified 08/08/19 18:28 Current Medications Current Medications Generic Name Dose Route Start Last Admin Trade Name Freq PRN Reason Stop Dose Admin Acetaminophen 650 mg 08/06/19 15:46 08/07/19 08:23 Tylenol PO 650 mg Q6H PRN Administration Mild/Mod Pain Or Temp >/= 101 Hydrocodone Bitart/Acetaminophen 1 tab 08/06/19 15:46 08/08/19 16:33 [place] 5-325 Mg PO 1 tab Q4H PRN Administration MODERATE TO SEVERE PAIN Allopurinol 300 mg 08/06/19 18:00 08/08/19 17:41 Zyloprim PO 300 mg BID GIANNI Administration Atorvastatin Calcium 40 mg 08/07/19 09:00 08/08/19 08:46 Lipitor PO 40 mg DAILY GIANNI Administration Clopidogrel Bisulfate 75 mg 08/07/19 09:00 08/08/19 08:46 Plavix PO 75 mg DAILY GIANNI Administration Diphenhydramine HCl 50 mg 08/06/19 15:46 08/08/19 09:20 Benadryl PO 50 mg Q4H PRN Administration ITCHING Fluconazole 200 mg 08/07/19 09:00 08/08/19 08:45 Diflucan Tab PO 200 mg DAILY GIANNI Administration Fluticasone Propionate 2 spray 08/07/19 09:00 08/08/19 08:49 Flonase INTRANASAL 2 spray DAILY GIANNI Administration Doxycycline Hyclate 100 mg/ 100 mls @ 100 mls/hr 08/06/19 22:00 08/08/19 12:44 Sodium Chloride IV 100 mls/hr Q12H GIANNI Administration Protocol Sodium Chloride 1,000 mls @ 50 mls/hr 08/06/19 15:46 08/08/19 08:43 Sodium Chloride 0.9% IV 50 mls/hr .Q20H GIANNI Administration Norepinephrine Bitartrate 4 mg 254 mls @ 0 mls/hr 08/07/19 10:45 08/08/19 16:57 / Dextrose IV 0 mcg/min .Q0M GIANNI 0 mls/hr Titration Protocol Per Protocol Imipenem/Cilastatin Sodium 500 100 mls @ 200 mls/hr 08/08/19 10:00 08/08/19 16:32 mg/ Sodium Chloride IV 200 mls/hr Q6H GIANNI Administration Protocol Insulin Aspart 0 unit 08/06/19 21:00 08/07/19 21:18 Novolog SUBCUT 6 unit BEDTIME GIANNI Administration Protocol Insulin Aspart 0 unit 08/06/19 18:00 08/08/19 17:41 Novolog SUBCUT 14 unit TIDWM GIANNI Administration Protocol Insulin Glargine 60 unit 08/08/19 08:00 08/08/19 08:42 Lantus SUBCUT 60 unit Q12H GIANNI Administration Isosorbide Mononitrate 30 mg 08/07/19 09:00 08/08/19 08:46 Imdur PO 30 mg DAILY GIANNI Administration Lanolin 1 applic 08/06/19 17:35 08/06/19 17:44 Lanolin Oint TOPICAL 1 tube PRN PRN Administration DRYNESS Lisinopril 5 mg 08/07/19 09:00 08/08/19 08:46 Prinivil PO 5 mg DAILY GIANNI Administration Meclizine HCl 25 mg 08/07/19 08:08 08/08/19 14:18 Antivert PO 25 mg TID PRN Administration DIZZINESS Metoprolol Tartrate 12.5 mg 08/07/19 21:00 08/08/19 08:46 Lopressor PO 12.5 mg Q12H GIANNI Administration Morphine Sulfate 2 mg 08/06/19 15:46 08/07/19 22:39 Morphine IVP 2 mg Q4H PRN Administration SEVERE PAIN Nystatin 1 applic 08/07/19 10:00 08/08/19 17:41 Nystatin Powder TOPICAL 1 applic BID GIANNI Administration Ondansetron HCl 4 mg 08/06/19 15:46 08/07/19 03:45 Zofran IVP 4 mg Q6H PRN Administration NAUSEA AND VOMITING Pantoprazole Sodium 40 mg 08/06/19 18:00 08/08/19 17:41 Protonix PO 40 mg BID GIANNI Administration Prednisone 40 mg 08/08/19 18:30 08/08/19 18:17 Prednisone PO 40 mg DAILY GIANNI Administration Sucralfate 1 gm 08/06/19 17:00 08/08/19 16:33 Carafate PO 1 gm AC&BEDTIME GIANNI Administration Triamcinolone Acetonide 1 applic 08/06/19 15:46 08/08/19 14:19 Triamcinolone 0.1% Cream TOPICAL 1 applic BID PRN Administration ITCHING PFSH Acute PFSH: Medical History Anxiety ASHD (arteriosclerotic heart disease) Back pain CHF (congestive heart failure) CKD (chronic kidney disease) Coronary artery disease DDD (degenerative disc disease) Decreased hearing of both ears Diabetes Diabetic polyneuropathy Duodenal ulcer Dyslipidemia Hypertension Incarcerated incisional hernia Morbid obesity Vitamin B deficiency Vitamin D deficiency Surgical History H/O esophagogastroduodenoscopy (~06/05/19) H/O hernia repair History of coronary artery stent placement Cardiac cath on 12/13/2016 with stent placement to LAD Hx of section 3 Hx of cholecystectomy Hx of tonsillectomy S/P appendectomy S/P plastic surgery 2019, panniculectomy Family History Mother CAD (coronary artery disease) Other Hypertension Social History Smoking and tobacco status: former smoker Quit status (tobacco): has quit using tobacco Former quit date comment: 2.5 PPD x 40 yrs Alcohol intake: unknown Lives independently: Yes Household members: spouse Housing: House Marital status: Pets and animals: Yes History of recent travel: No Current gender identity: Female Female Reproductive History: Date of last menstrual period: 06/05/19 Vitals/I&O/Wt Last Vital Signs Temp 97.7 F 08/08/19 15:00 Pulse 77 08/08/19 18:00 Resp 17 08/08/19 18:00 BP 92/50 08/08/19 18:00 Pulse Ox 74 L 08/08/19 18:00 08/08/19 08/08/19 08/08/19 06:59 14:59 22:59 Intake Total 1356.873 / 4102.623 592 / 592 434.04 / 1026.04 Output Total 750 / 1675 850 / 850 Balance 606.873 / 2427.623 592 / 592 -415.96 / 176.04 Weight last 48 hrs Weight 289 lb 9.6 oz Weight 290 lb 3.2 oz Weight 290 lb 3.2 oz Physical Exam Narrative: EXAM NARRATIVE: General: Patient is awake alert and oriented, in no distress. However she responds rather incoherently to questions from time to time Neck: No JVD, no cervical or supraclavicular lymphadenopathy. Respiratory: Bilateral clear to auscultation both anterior and posteriorly, no crackles wheezing or rhonchi Cardiovascular: Regular rate and rhythm, S1-S2 present, no murmur, bilateral pitting peripheral edema Abdomen: Soft, nontender, distended from obesity, positive bowel sound Skin: diffuse maculopapular and morbilliform rash all over the body. Blisters in the right inner aspect of the thigh and a ruptured blister in the right lateral chest wall, erythematous rash in the intertriginous area likely secondar y to fungal infection Neuro: No gross motor deficit Urinary Catheter Management^: Khan: Cath Placed During This Visit: yes Reason for Continuing Indwelling Catheter: Accurate Measurement of Urinary Output in Critically Ill Patients Urinary Catheter Date of Insertion: 08/06/19 Urinary Catheter Time of Insertion: 21:45 Data Micro: Micro: Microbiology 08/06/19 17:35 Group A Streptococ cus Rapid Screen - Preliminary Throat 08/06/19 18:35 Urine Culture - Pr eliminary Urine Catheterize d Gram Negative R ods Other Data: Other data: I have reviewed the patient's laboratory, microbiologic and radiologic data A&P Assessment and plan (1) Macular erythematous rash: Is a very interesting case. I believe the diffuse maculopapular rash is secondary to a drug reaction possibly secondary to a penicillin. The presence of itchiness is usually not present with diffuse skin rash secondary to a bacterial etiology ecthyma gangrenosum can be seen from gram-negative scotty bacteremia however the patient does not have any evidence of bacteremia and the appearance of the rash is not consistent with ecthyma gangrenosum. There is no evidence of Dennison-Dima syndrome or toxic epidermal necrolysis. Her presentation and blood work are not consistent with dress syndrome. The septic shock was likely secondary to the UTI. The cellulitis in lower extremity has improved significantly. There is no evidence of this rash to be secondary to toxic shock syndrome. We will continue with imipenem, doxycycline, fluconazole. I am going to start the patient on 40 mg of prednisone and I expect her to get better rapidly within the next few days. Her procalcitonin has been stable. Status: Acute (2) CHF (congestive heart failure): The patient has a history of CHF. However I believe the patient was dehydrated when she presented to the hospital with 80 mg of Lasix twice that was given to her as outpatient now that her hemodynamics are slowly getting better she can be gently given diuretic regimen Status: Acute (3) Poorly controlled diabetes mellitus: Blood sugar is likely to go up with the prednisone. The insulin regimen will need to be optimized. Status: Acute (4) Cellulitis of leg, left: There is no significant evidence of lower extremity cellulitis at this point Status: Acute (5) Edema: Likely secondary to heart failure. Please see above. Status: Acute Qualifiers: Edema type: localized Qualified Code(s): R60.0 - Localized edema (6) Septic shock: Septic shock was likely secondary to UTI which has resolved currently. We will continue the broad-spectrum antibiotic and gently initiate an antihypertensive regimen. Thank you for the consultation! Status: Acute Consult Attestations Medical Necessity Statement: Will defer to the primary team. 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
[2019-08-08] MEDS: docusate sodium 100 mg Capsule PO (20:58)
[2019-08-08] MEDS: lanolin oint 7 gm 1 APPLIC TOPICAL (20:58)
[2019-08-08 21:11] LABS: Glucose Point of Care 275 mg/dL (70-110)
[2019-08-08 21:30] LABS: Glucose Point of Care 340 mg/dL (70-110)
[2019-08-09] VITALS (47 sets, daily range): BP systolic 89–129; BP diastolic 44–101; PULSE 64–100; RESP 10–24; TEMP 36.1–36.8; O2SAT 73–100
[2019-08-09] MEDS: sodium chloride 0.9% 1,000 ML 50 ML IV (04:24)
--- NOTE | 2019-08-09 05:51 | PC.NURSE ---
Skin Bed bath completed. All skin folds to legs/pannus/breast and arm pits cleansed, dried and nystatin powder applied. Interdry applied to pannus folds. Red papular rash to generalized body. Mulitple blisters formation. Right medial upper thigh has fluid filled blister. Right lateral chest has multiple small fluid filled blisters and areas in which blisters have popped. Optifoam applied to open area. Left lateral chest has open area from popped blister, optifoam applied. Small area to right buttock measure 2cm L X 0.5cm width stage 2. Aloe vesta applied and repositioned on right side.
[2019-08-09] MEDS: sucralfate 1 gm Tablet PO ×4 (06:21→20:38)
[2019-08-09 06:44] LABS: Basophils % 0.2 %; Eosinophils % 0.2 %; Hematocrit 30.8 % (37.0-47.0); Hemoglobin 8.5 g/dL (11.5-15.3); Lymphocytes # 0.8 10^3/uL (0.8-4.8); Lymphocytes % 13.5 %; Mean Corpuscular HGB Conc 27.6 g/dL (30.0-36.0); Mean Corpuscular Hemoglobin 27.2 pg (28.0-34.0); Mean Corpuscular Volume 98.7 fL (81-99); Mean Platelet Volume 9.9 fL (7.4-10.4); Monocytes # 0.1 10^3/uL (0.2-0.9); Neutrophils # 4.7 10^3/uL (1.8-7.7); Neutrophils % 83.7 %; Nucleated Red Blood Cells % 0 %; Platelet Count 82 10^3/cmm (130-400); Red Blood Count 3.12 10^6/uL (4.1-5.3); Red Cell Distribution Width 16.9 % (12.1-15.1); White Blood Count 5.6 10^3/uL (4.0-10.0)
[2019-08-09 06:59] LABS: Alanine Aminotransferase 18 U/L (0-33); Albumin Level 2.4 g/dL (3.5-5.2); Alkaline Phosphatase 144 IU/L (35-105); Anion Gap 14.7 (5-19); Aspartate Amino Transferase 22 U/L (0-32); Blood Urea Nitrogen 34 mg/dL (8-23); Calcium 9.1 mg/dL (8.5-10.5); Carbon Dioxide 20 mmol/L (22-29); Chloride 100 mmol/L (98-107); Globulin 2.9 g/dL (1.3-4.6); Glomerular Filtration Rate 49.1 mL/min (90-130); Glucose 342 mg/dL (65-115); Osmolality Calculated 281 mOsm/kg (285-295); Potassium 4.7 mmol/L (3.5-5.1); Sodium 130 mmol/L (136-145); Total Bilirubin 0.5 mg/dL (0.15-1.2); Total Protein 5.3 g/dL (6.6-8.7)
[2019-08-09 07:12] LABS: Slide Review Slide Review Perform
[2019-08-09] MEDS: nystatin powder 15 gm Btl 1 APPLIC TOPICAL ×2 (07:59→15:49)
[2019-08-09] MEDS: pantoprazole DR 40 mg Tablet PO ×2 (08:08→15:48)
[2019-08-09] MEDS: insulin glargine 100 units/1 mL 60 UNIT SUBCUT (08:08)
[2019-08-09] MEDS: fluconazole 100 mg Tablet 200 MG PO (08:09)
[2019-08-09] MEDS: predniSONE 20 mg Tablet 40 MG PO (08:09)
[2019-08-09] MEDS: clopidogrel 75 mg Tablet PO (08:10)
[2019-08-09] MEDS: lisinopril 5 mg Tablet PO (08:10)
[2019-08-09] MEDS: atorvastatin 40 mg Tablet PO (08:10)
[2019-08-09] MEDS: metoprolol tartrate 25 mg Tablet 12.5 MG PO ×2 (08:10→20:38)
[2019-08-09] MEDS: isosorbide mononitrate ER 30 mg Tablet PO (08:10)
[2019-08-09] MEDS: allopurinol 300 mg Tablet PO ×2 (08:11→15:47)
[2019-08-09] MEDS: diphenhydrAMINE 50 mg Capsule PO ×3 (08:11→22:29)
[2019-08-09] MEDS: morphine 4 mg/mL SDV 1 mL 2 MG IVP (08:15)
[2019-08-09] MEDS: doxycycline 100 MG in sodium chloride 0.9% (plus) 100 ML IV ×2 (10:43→22:09)
[2019-08-09] MEDS: meclizine 25 mg tablet PO ×2 (10:46→22:54)
[2019-08-09] MEDS: fluticasone nasal spray 16gm Btl 2 SPRAY INTRANASAL (10:47)
[2019-08-09] MEDS: HYDROcodone-acetaminophen 5-325 mg Tablet 1 TAB PO ×2 (10:53→16:15)
--- NOTE | 2019-08-09 11:16 | PC.SOCIAL ---
IMM completed on 08/09/2019 @ 5425
[2019-08-09 12:02] LABS: Glucose Point of Care 392 mg/dL (70-110)
--- NOTE | 2019-08-09 15:22 | PM.PN ---
Subjective Subjective: Interval history: Patient sitting up in bed at time of exam this morning. She reported feeling slightly better. Itching has improved. Patient reports some generalized weakness when discussing home health services and potential nursing home facility placement she stated that she would not consider nursing home facility placement. Discussed with patient that we will continue to work with increasing her ambulation to ensure safe disposition planning, she verbalized understanding and agreed with plan. Vitals/I&O/Wt Last Vital Signs Temp 97.9 F 08/09/19 08:00 Pulse 88 08/09/19 13:30 Resp 22 H 08/09/19 13:30 BP 126/70 08/09/19 13:30 Pulse Ox 93 08/09/19 13:30 08/09/19 08/09/19 08/09/19 06:59 14:59 22:59 Intake Total 984.167 / 2550.207 1250 / 1250 Output Total 825 / 1675 900 / 900 Balance 159.167 / 875.207 350 / 350 Weight last 48 hrs Weight 135.533 kg Weight 131.36 kg Physical Exam Const: COMMON NORMALS: patient oriented x3 and alert GENERAL APPEARANCE: cooperative NUTRITIONAL APPEARANCE: obese ORIENTATION/CONSCIOUSNESS: Yes awake, Yes oriented to person, Yes oriented to place and Yes oriented to time HENMT: COMMON NORMALS: normocephalic and atraumatic HEAD & SCALP: normocephalic and atraumatic Eye: COMMON NORMALS: Equal, round and reactive pupils present PUPIL: Yes Equal, round and reactive pupils present Neck/C-Spine: COMMON NORMALS: supple GENERAL: Yes normal visual inspection Resp: COMMON NORMALS: normal respiratory effort and clear to auscultation bilaterally EFFORT & INSPECTION: Yes able to speak in complete sentences AUSCULTATION: clear to auscultation bilaterally, no rhonchi and no wheezes Cardio: COMMON NORMALS: No murmurs present (Cardio) OTHER: Regular rate and rhythm, no appreciable murmur GI: COMMON NORMALS: Soft to palpation and non-tender INSPECTION: No abdominal distension AUSCULTATION: Yes normoactive bowel sounds PALPATION: Yes Soft to palpation : COMMON NORMALS: Yes no CVA tenderness BLADDER/KIDNEY EXAM: Yes no CVA tenderness OTHER: Khan catheter in place Back/Pelvis: COMMON NORMALS: no CVA tenderness OTHER: Diffuse maculopapular rash from the neck to the feet bilaterally, sparing face. much improved Extremity: COMMON NORMALS: no calf tenderness NARRATIVE EXTREMITY EXAM: Nonpitting edema in the lower extremities bilaterally, negative Homans sign in the lower extremities bilaterally Neuro: COMMON NORMALS: patient oriented x3, CN's II-XII intact bilaterally, moves all extremities and no focal motor deficits SENSORIUM/ORIENTATION: Yes alert, Yes oriented to person, Yes oriented to place and Yes oriented to time SPEECH: speech normal Psych: COMMON NORMALS: mental status grossly normal and cooperative Skin: NARRATIVE SKIN EXAM: Diffuse erythematous rash spreading from the patient's neck to her trunk anterior and posterior, lower extremities and arms. Patient has more concentrated area of erythema in the medial right thigh. Bullae on the right flank, improved today Urinary Catheter Management^: Khan: Cath Placed During This Visit: yes Reason for Continuing Indwelling Catheter: Accurate Measurement of Urinary Output in Critically Ill Patients Urinary Catheter Date of Insertion: 08/06/19 Urinary Catheter Time of Insertion: 21:45 Data : 08/09/19 06:39 08/09/19 06:39 Micro: Microbiology 08/06/19 17:35 Group A Streptococcus Rapid Screen - Final Throat 08/06/19 18:35 Urine Culture - Preliminary Urine Catheterized Escherichia coli A&P Assessment and plan (1) Cellulitis of both lower extremities: Ruled out Status: Acute (2) Macular erythematous rash: Diffuse macular papular rash Concern for drug eruption Concerned that elevated procalcitonin and source of sepsis and septic shock was related to urinary tract infection and diffuse rash related to drug eruption Started on burst of steroids prednisone 40 mg daily for 5 days, improvement today. Discontinued Zosyn yesterday. Patient is continued on Primaxin for UTI, culture showing E. coli will follow up with further results Status: Acute Additional A&P Information Acute cystitis: Continued on Primaxin today, urine culture showing E. coli with sensitivities pending Anemia with recent GI bleed and large duodenal ulcer, hemoglobin stable at this time Poorly controlled diabetes mellitus type 2: Insulin-dependent, increase Lantus to 70 units twice daily Dehydration with concern for prerenal acute kidney injury: Resolved Hypotension: Holding lisinopril and Lasix. Levo fed discontinued and pressures remained stable, transfer out of ICU Recent diagnosis of duodenal ulcer and upper GI bleed: Anemia appears to be stable at this time, no evidence of any continued bleeding Coronary artery disease: Without acute chest pain or shortness of breath COPD: Without acute exacerbation Chronic kidney disease: With increased from baseline, appears to be prerenal, holding home Lasix Prior history of hypertension: Holding antihypertensives due to hypotension Morbid obesity Vitamin B deficiency Vitamin D deficiency DVT prophylaxis: SCDs, no pharmacologic prophylaxis due to recent GI bleed and anemia Diet: Carb consistent diet Attestations Medical Necessity Statement*: Patient requires further hospitalization due to diffuse maculopapular rash where septic shock secondary to UTI Coding Level of Care Code Acute 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
[2019-08-09 16:23] LABS: Glucose Point of Care 315 mg/dL (70-110)
[2019-08-09 16:48] LABS: Glucose Point of Care 362 mg/dL (70-110)
[2019-08-09 16:56] LABS: E. Chaffeensis AB IGG <1:64; E. Chaffeensis AB IGM <1:20; RMSF IGG NOT DETECTED; RMSF IGM NOT DETECTED
--- NOTE | 2019-08-09 19:07 | PC.NURSE ---
alvarado removed at 1400, patient has called me to the room several times but never admitted the need to void yet. she does have a slightly damp gown on her right breast area. pink optifoams of larger size unavailable so abds and paper tape collected and fresh larger gown. patient finished dinner and room number for transfer given as [id number]. nurses on the floor unable to take report. agricultural equipment test engineer given report as she had her the night before she will encourage patient to void while transfering to w/c and getting her gown changed.
[2019-08-09] MEDS: docusate sodium 100 mg Capsule PO (20:38)
[2019-08-09] MEDS: insulin glargine 100 units/1 mL 70 UNIT SUBCUT (21:25)
--- NOTE | 2019-08-09 21:48 | PC.NURSE ---
Patient transferred to [facility] by bed at this time. Report given to CHEMA Peterson around 1999. Nurse accepting patient CHEMA Vogel.
[2019-08-10] VITALS (9 sets, daily range): BP systolic 110–128; BP diastolic 64–73; PULSE 62–82; RESP 16–22; TEMP 35.9–36.6; O2SAT 94–100
[2019-08-10 05:35] LABS: Basophils % 0.1 %; Eosinophils % 0.2 %; Hematocrit 28.3 % (37.0-47.0); Hemoglobin 8.4 g/dL (11.5-15.3); Lymphocytes # 1.4 10^3/uL (0.8-4.8); Lymphocytes % 16.7 %; Mean Corpuscular HGB Conc 29.7 g/dL (30.0-36.0); Mean Corpuscular Hemoglobin 27.8 pg (28.0-34.0); Mean Corpuscular Volume 93.7 fL (81-99); Mean Platelet Volume 10.3 fL (7.4-10.4); Monocytes # 0.3 10^3/uL (0.2-0.9); Monocytes % 3.4 %; Neutrophils # 6.8 10^3/uL (1.8-7.7); Nucleated Red Blood Cells % 0 %; Platelet Count 105 10^3/cmm (130-400); Red Blood Count 3.02 10^6/uL (4.1-5.3); Red Cell Distribution Width 16.6 % (12.1-15.1); White Blood Count 8.6 10^3/uL (4.0-10.0)
[2019-08-10 06:09] LABS: Anion Gap 14.5 (5-19); Blood Urea Nitrogen 33 mg/dL (8-23); Calcium 9.9 mg/dL (8.5-10.5); Carbon Dioxide 23 mmol/L (22-29); Chloride 99 mmol/L (98-107); Glomerular Filtration Rate 49.1 mL/min (90-130); Glucose 395 mg/dL (65-115); Osmolality Calculated 288 mOsm/kg (285-295); Potassium 4.5 mmol/L (3.5-5.1); Sodium 132 mmol/L (136-145)
[2019-08-10 07:23] LABS: Glucose Point of Care 355 mg/dL (70-110)
[2019-08-10] MEDS: atorvastatin 40 mg Tablet PO (08:19)
[2019-08-10] MEDS: fluconazole 100 mg Tablet 200 MG PO (08:19)
[2019-08-10] MEDS: predniSONE 20 mg Tablet 40 MG PO (08:19)
[2019-08-10] MEDS: clopidogrel 75 mg Tablet PO (08:20)
[2019-08-10] MEDS: lisinopril 5 mg Tablet PO (08:20)
[2019-08-10] MEDS: metoprolol tartrate 25 mg Tablet 12.5 MG PO ×2 (08:20→21:23)
[2019-08-10] MEDS: insulin glargine 100 units/1 mL 70 UNIT SUBCUT ×2 (08:20→21:22)
[2019-08-10] MEDS: pantoprazole DR 40 mg Tablet PO ×2 (08:20→17:00)
[2019-08-10] MEDS: isosorbide mononitrate ER 30 mg Tablet PO (08:20)
[2019-08-10] MEDS: allopurinol 300 mg Tablet PO ×2 (08:20→17:00)
[2019-08-10] MEDS: sucralfate 1 gm Tablet PO ×4 (08:20→21:23)
[2019-08-10] MEDS: fluticasone nasal spray 16gm Btl 2 SPRAY INTRANASAL (10:05)
[2019-08-10] MEDS: nystatin powder 15 gm Btl 1 APPLIC TOPICAL ×2 (10:05→19:02)
[2019-08-10 11:03] LABS: Glucose Point of Care 326 mg/dL (70-110)
[2019-08-10 17:13] LABS: Glucose Point of Care 392 mg/dL (70-110)
--- NOTE | 2019-08-10 17:31 | P.PN_ITS ---
Subjective Subjective: Interval history: No acute events of the night. Hospital course noted. Labs noted. Patient has remained afebrile. On examination sitting comfortably in chair. Patient is pretty upset during my examination today. She is upset because she thinks her declined to put her to SNF and she is worried if she goes to SNF her is going to steal her house. Patient is AO x3, denying of any nausea, vomiting, headache. She states her rash is stable, denies of any itching or pain but is concerned of extreme weeping. Vitals/I&O/Wt Last Vital Signs Temp 97.8 F 08/10/19 15:25 Pulse 77 08/10/19 15:25 Resp 16 08/10/19 15:25 BP 110/68 08/10/19 15:25 Pulse Ox 97 08/10/19 15:25 08/10/19 08/10/19 08/10/19 06:59 14:59 22:59 Intake Total 240 / 1790 360 / 360 Output Total 400 / 400 Balance 240 / 590 360 / 360 -400 / -40 Weight last 48 hrs Weight 136.305 kg Weight 135.533 kg Physical Exam Const: COMMON NORMALS: patient oriented x3 and alert GENERAL APPEARANCE: cooperative NUTRITIONAL APPEARANCE: obese ORIENTATION/CONSCIOUSNESS: Yes awake, Yes oriented to person, Yes oriented to place and Yes oriented to time HENMT: COMMON NORMALS: normocephalic and atraumatic HEAD & SCALP: normocephalic and atraumatic Eye: COMMON NORMALS: Equal, round and reactive pupils present PUPIL: Yes Equal, round and reactive pupils present Neck/C-Spine: COMMON NORMALS: supple GENERAL: Yes normal visual inspection OTHER: Anterior cervical lymphadenopathy present Resp: COMMON NORMALS: normal respiratory effort and clear to auscultation bilaterally EFFORT & INSPECTION: Yes able to speak in complete sentences AUSCULTATION: clear to auscultation bilaterally, no rhonchi and no wheezes Cardio: COMMON NORMALS: No murmurs present (Cardio) OTHER: Regular rate and rhythm, no appreciable murmur GI: COMMON NORMALS: Soft to palpation and non-tender INSPECTION: No abdominal distension AUSCULTATION: Yes normoactive bowel sounds PALPATION: Yes Soft to palpation : COMMON NORMALS: Yes no CVA tenderness BLADDER/KIDNEY EXAM: Yes no CVA tenderness OTHER: Khan catheter in place Back/Pelvis: COMMON NORMALS: no CVA tenderness OTHER: Diffuse maculopapular rash from the neck to the feet bilaterally, sparing face. much improved Extremity: COMMON NORMALS: no calf tenderness NARRATIVE EXTREMITY EXAM: Nonpitting edema in the lower extremities bilaterally, negative Homans sign in the lower extremities bilaterally Neuro: COMMON NORMALS: patient oriented x3, CN's II-XII intact bilaterally, moves all extremities and no focal motor deficits SENSORIUM/ORIENTATION: Yes alert, Yes oriented to person, Yes oriented to place and Yes oriented to time SPEECH: speech normal Psych: COMMON NORMALS: mental status grossly normal and cooperative Skin: NARRATIVE SKIN EXAM: Diffuse micropapular and morbilliform rash all over the body sparing neck above and mucous membranes, blisters in right inner aspect of the thigh and some ruptured blisters present below the pannus and posterior aspect of the right arm and right left pleural chest wall. Urinary Catheter Management^: Khan: Cath Placed During This Visit: yes, but has since been removed by the nurse Reason for Continuing Indwelling Catheter: Accurate Measurement of Urinary Output in Critically Ill Patients Urinary Catheter Date of Insertion: 08/06/19 Urinary Catheter Time of Insertion: 21:45 Date Urinary Catheter Removed: 08/09/19 Time Urinary Catheter Discontinued: 14:00 Data : 08/10/19 04:50 08/10/19 04:50 Micro: Microbiology 08/06/19 18:35 Urine Culture - Final Urine Catheterized Escherichia coli esbl A&P Assessment and plan (1) Cellulitis of both lower extremities: Ruled out Status: Acute (2) Macular erythematous rash: Status: Acute (3) Septic shock: Status: Acute (4) CKD (chronic kidney disease): Status: Acute (5) Hypertension: Status: Acute (6) Diabetes: Status: Acute (7) UTI due to extended-spectrum beta lactamase (ESBL) producing Escherichia coli: Status: Acute Additional A&P Information Diffuse micropapular rash: All over the body except the neck and the mucous membrane. Etiology could be widespread. Unlikely SJS, TEN because of mucosal membrane sparing. Unlikely dress syndrome because blood work is not consistent could be Staphylococcus scalded syndrome but blood cultures have remained negative. Could be secondary to ecthyma gangrenosum from gram-negative non-bacteremia but blood cultures have remained negative. Given the chronology of the events it could be secondary to drug reaction possibly from penicillin. Patient's eosinophil at the start were high. Patient is already on high-dose steroids for last 2 days so skin biopsy yield will be low. For now we will continue the prednisone 40 mg daily for next 5 days and then will try to wean off slowly. Patient would most likely need Derm follow-up as an outpatient. Stop fluconazole and c/w doxy for now. Sepsis secondary to ESBL UTI: Sepsis resolved. Patient is already on imipenem. Day 3 of treatment today. Patient would most likely need overall 5-day of antibiotics. CKD: Creat improving and back to baseline. Most likley KEN due to sepsis and dehydration from extensive weeping. For now c/w IVF. HTN: BP better. Goal BP 140/90 mmhg. C/w home dose of lisinopril, metoprolol, imdur Poorly controlled diabetes mellitus type 2: Insulin-dependent, increase Lantus to 70 units twice daily Recent diagnosis of duodenal ulcer and upper GI bleed: Anemia appears to be stable at this time, no evidence of any continued bleeding Coronary artery disease: Without acute chest pain or shortness of breath COPD: Without acute exacerbation Morbid obesity Vitamin B deficiency Vitamin D deficiency DVT prophylaxis: SCDs, no pharmacologic prophylaxis due to recent GI bleed and anemia Diet: Carb consistent diet Dispo plan: Patient's who lives with her at the same home states they are both estranged but live with the same home and is usually not able to take care of her. He states patient usually does what ever she feels like. Had an extensive discussion with patient regarding safe discharge planning. She states no matter what she would like to go home and is denying SNF placement. She states she is willing to go home with home health. Attestations Medical Necessity Statement*: Diffuse rash, ESBL uti Time Spent in Patient Care: Greater than 35 minutes (>than 50% of time spent in counselling and/or direct pt care on unit) . 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
[2019-08-10] MEDS: doxycycline 100 MG in sodium chloride 0.9% (plus) 100 ML IV (18:12)
[2019-08-10 21:10] LABS: Glucose Point of Care 431 mg/dL (70-110)
[2019-08-10] MEDS: docusate sodium 100 mg Capsule PO (21:24)
[2019-08-10] MEDS: acetaminophen 325 mg Tablet 650 MG PO (21:24)
[2019-08-10] MEDS: OLANZapine 10 mg VIAL 5 MG IM (23:31)
[2019-08-10] MEDS: meclizine 25 mg tablet PO (23:31)
[2019-08-11] VITALS (8 sets, daily range): BP systolic 112–127; BP diastolic 59–77; PULSE 52–84; RESP 17–20; TEMP 36.2–36.9; O2SAT 93–100; BMI 44.4
[2019-08-11 05:49] LABS: Glucose Point of Care 400 mg/dL (70-110)
[2019-08-11] MEDS: doxycycline 100 MG in sodium chloride 0.9% (plus) 100 ML IV (06:03)
[2019-08-11] MEDS: sucralfate 1 gm Tablet PO ×4 (06:03→20:41)
[2019-08-11 06:39] LABS: Basophils % 0.1 %; Eosinophils # 0.1 10^3/uL (0.0-0.8); Eosinophils % 1.7 %; Hemoglobin 8.7 g/dL (11.5-15.3); Lymphocytes # 1.7 10^3/uL (0.8-4.8); Lymphocytes % 21.3 %; Mean Corpuscular Hemoglobin 27.5 pg (28.0-34.0); Mean Corpuscular Volume 91.8 fL (81-99); Mean Platelet Volume 9.7 fL (7.4-10.4); Monocytes # 0.4 10^3/uL (0.2-0.9); Monocytes % 5.1 %; Neutrophils # 5.6 10^3/uL (1.8-7.7); Neutrophils % 71.4 %; Nucleated Red Blood Cells % 0 %; Platelet Count 98 10^3/cmm (130-400); Red Blood Count 3.16 10^6/uL (4.1-5.3); Red Cell Distribution Width 16.5 % (12.1-15.1); White Blood Count 7.8 10^3/uL (4.0-10.0)
[2019-08-11 06:51] LABS: Alanine Aminotransferase 20 U/L (0-33); Alkaline Phosphatase 160 IU/L (35-105); Anion Gap 11.4 (5-19); Aspartate Amino Transferase 21 U/L (0-32); Blood Urea Nitrogen 35 mg/dL (8-23); Calcium 10.9 mg/dL (8.5-10.5); Carbon Dioxide 24 mmol/L (22-29); Chloride 103 mmol/L (98-107); Globulin 2.8 g/dL (1.3-4.6); Glomerular Filtration Rate 54.8 mL/min (90-130); Glucose 246 mg/dL (65-115); Osmolality Calculated 284 mOsm/kg (285-295); Potassium 4.4 mmol/L (3.5-5.1); Sodium 134 mmol/L (136-145); Total Bilirubin 0.4 mg/dL (0.15-1.2); Total Protein 5.8 g/dL (6.6-8.7)
[2019-08-11 07:35] LABS: Glucose Point of Care 246 mg/dL (70-110)
[2019-08-11] MEDS: insulin glargine 100 units/1 mL 70 UNIT SUBCUT ×2 (08:12→20:41)
[2019-08-11] MEDS: allopurinol 300 mg Tablet PO ×2 (08:14→17:58)
[2019-08-11] MEDS: pantoprazole DR 40 mg Tablet PO ×2 (08:15→17:58)
[2019-08-11] MEDS: clopidogrel 75 mg Tablet PO (08:15)
[2019-08-11] MEDS: predniSONE 20 mg Tablet 40 MG PO (08:15)
[2019-08-11] MEDS: metoprolol tartrate 25 mg Tablet 12.5 MG PO ×2 (08:15→20:42)
[2019-08-11] MEDS: atorvastatin 40 mg Tablet PO (08:15)
[2019-08-11] MEDS: lisinopril 5 mg Tablet PO (08:15)
[2019-08-11] MEDS: isosorbide mononitrate ER 30 mg Tablet PO (08:15)
[2019-08-11] MEDS: silver sulfadiazine cream 1% 50 gm 1 APPLIC TOPICAL ×2 (08:16→17:59)
[2019-08-11] MEDS: fluticasone nasal spray 16gm Btl 2 SPRAY INTRANASAL (08:16)
[2019-08-11] MEDS: nystatin powder 15 gm Btl 1 APPLIC TOPICAL (08:17)
--- NOTE | 2019-08-11 11:13 | PC.SOCIAL ---
IMM Updated Updated pt on Pg 2 IMM. Pt verbally understands. Provided pt a copy. Signed, dated, & timed copy in chart.
[2019-08-11 11:53] LABS: Glucose Point of Care 219 mg/dL (70-110)
[2019-08-11 12:52] LABS: Hepatitis C Virus Antibody Non-Reactive (Nonreactive)
--- NOTE | 2019-08-11 13:06 | P.PN_ITS ---
Subjective Subjective: Interval history: No acute events overnight. Patient has remained afebrile. On examination today still worried if patient will be going to SNF. Did vp & general counsel her and explained to her that everything will be done as per her wishes and what ever is medically required. Patient denies any nausea, vomiting, chest pain, headache. She states her itching is improved. Labs and vitals noted. Vitals/I&O/Wt Last Vital Signs Temp 97.2 F L 08/11/19 07:17 Pulse 61 08/11/19 08:28 Resp 18 08/11/19 08:28 BP 127/76 08/11/19 07:17 Pulse Ox 99 08/11/19 08:28 08/10/19 08/11/19 08/11/19 22:59 06:59 14:59 Intake Total 540 / 900 1000 / 1900 Output Total 1000 / 1000 2049 / 3050 Balance -460 / -100 -1050 / -1150 Weight last 48 hrs Weight 136.305 kg Weight 136.305 kg Physical Exam Const: COMMON NORMALS: patient oriented x3 and alert GENERAL APPEARANCE: cooperative NUTRITIONAL APPEARANCE: obese ORIENTATION/CONSCIOUSNESS: Yes awake, Yes oriented to person, Yes oriented to place and Yes oriented to time HENMT: COMMON NORMALS: normocephalic and atraumatic HEAD & SCALP: normocephalic and atraumatic Eye: COMMON NORMALS: Equal, round and reactive pupils present PUPIL: Yes Equal, round and reactive pupils present Neck/C-Spine: COMMON NORMALS: supple GENERAL: Yes normal visual inspection OTHER: Anterior cervical lymphadenopathy present Resp: COMMON NORMALS: normal respiratory effort and clear to auscultation bilaterally EFFORT & INSPECTION: Yes able to speak in complete sentences AUSCULTATION: clear to auscultation bilaterally, no rhonchi and no wheezes Cardio: COMMON NORMALS: No murmurs present (Cardio) OTHER: Regular rate and rhythm, no appreciable murmur GI: COMMON NORMALS: Soft to palpation and non-tender INSPECTION: No abdominal distension AUSCULTATION: Yes normoactive bowel sounds PALPATION: Yes Soft to palpation : COMMON NORMALS: Yes no CVA tenderness BLADDER/KIDNEY EXAM: Yes no CVA tenderness OTHER: Khan catheter in place Back/Pelvis: COMMON NORMALS: no CVA tenderness OTHER: Diffuse maculopapular rash from the neck to the feet bilaterally, sparing face. much improved Extremity: COMMON NORMALS: no calf tenderness NARRATIVE EXTREMITY EXAM: Nonpitting edema in the lower extremities bilaterally, negative Homans sign in the lower extremities bilaterally Neuro: COMMON NORMALS: patient oriented x3, CN's II-XII intact bilaterally, moves all extremities and no focal motor deficits SENSORIUM/ORIENTATION: Yes alert, Yes oriented to person, Yes oriented to place and Yes oriented to time SPEECH: speech normal Psych: COMMON NORMALS: mental status grossly normal and cooperative Skin: NARRATIVE SKIN EXAM: Improving. Diffuse micropapular and morbilliform rash all over the body sparing neck above and mucous membranes, blisters in right inner aspect of the thigh and some ruptured blisters present below the pannus and posterior aspect of the right arm and right left pleural chest wall. Urinary Catheter Management^: Khan: Cath Placed During This Visit: yes, but has since been removed by the nurse Reason for Continuing Indwelling Catheter: Accurate Measurement of Urinary Output in Critically Ill Patients Urinary Catheter Date of Insertion: 08/06/19 Urinary Catheter Time of Insertion: 21:45 Date Urinary Catheter Removed: 08/09/19 Time Urinary Catheter Discontinued: 14:00 Data : 08/11/19 06:30 08/11/19 06:30 Micro: Microbiology 08/06/19 10:10 Blood Culture - Final Blood NO GROWTH AFTER 5 DAYS 08/06/19 10:05 Blood Culture - Final Blood NO GROWTH AFTER 5 DAYS 08/06/19 18:35 Urine Culture - Final Urine Catheterized Escherichia coli esbl A&P Assessment and plan (1) Cellulitis of both lower extremities: Ruled out Status: Acute (2) Macular erythematous rash: Status: Acute (3) Septic shock: Status: Acute (4) CKD (chronic kidney disease): Status: Acute (5) Hypertension: Status: Acute (6) Diabetes: Status: Acute (7) UTI due to extended-spectrum beta lactamase (ESBL) producing Escherichia coli: Status: Acute Additional A&P Information Diffuse maculopapular rash: Improving. All over the body except the neck and the mucous membrane. Etiology could be widespread. Unlikely SJS, TEN because of mucosal membrane sparing. Unlikely dress syndrome because blood work is not consistent could be Staphylococcus scalded syndrome but blood cultures have remained negative. Could be secondary to ecthyma gangrenosum from gram-negative non-bacteremia but blood cultures have remained negative. Given the chronology of the events it could be secondary to drug reaction possibly from penicillin. Patient's eosinophil at the start were high. Patient is already on high-dose steroids for last 2 days so skin biopsy yield will be low. For now we will continue the prednisone 40 mg daily for next 5 days and then will try to wean off slowly. Day 4 today. Patient would most likely need Derm follow-up as an outpatient. Stop fluconazole and c/w doxy for now. Sepsis secondary to ESBL UTI: Sepsis resolved. Patient is already on imipenem. Day 4 of treatment today. Patient would most likely need overall 5-day of antibiotics. CKD: Creat improving and back to baseline. Most likley KEN due to sepsis and dehydration from extensive weeping. Patient tolerating oral diet well. Will decrease IV fluids to 50 cc for now. HTN: BP better. Goal BP 140/90 mmhg. C/w home dose of lisinopril, metoprolol, imdur Poorly controlled diabetes mellitus type 2: Blood sugars better controlled today. Carb consistent diet. Continue with insulin sliding scale at current dose. Continue with Lantus 70 units twice daily. Blood sugars elevated most likely because of steroids at present. Recent diagnosis of duodenal ulcer and upper GI bleed: Anemia appears to be stable at this time, no evidence of any continued bleeding Coronary artery disease: Without acute chest pain or shortness of breath COPD: Without acute exacerbation Morbid obesity Vitamin B deficiency Vitamin D deficiency DVT prophylaxis: SCDs, no pharmacologic prophylaxis due to recent GI bleed and anemia Diet: Carb consistent diet Full code. Dispo plan: Patient's who lives with her at the same home states they are both estranged but live with the same home and is usually not able to take care of her. He states patient usually does what ever she feels like. Had an extensive discussion with patient regarding safe discharge planning. She states no matter what she would like to go home and is denying SNF placement. She states she is willing to go home with home health. Attestations Medical Necessity Statement*: UTI sepsis, ESBL, diffuse maculopapular rash Time Spent in Patient Care: Greater than 35 minutes (>than 50% of time spent in counselling and/or direct pt care on unit) . 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
[2019-08-11 15:58] LABS: HIV 1 & 2 Antibody Non-Reactive (Non-Reactiv); HIV 1 & 2 Antigen Non-Reactive (Non-Reactiv)
[2019-08-11] MEDS: doxycycline 100 mg Tablet PO (17:58)
[2019-08-11 18:30] LABS: Glucose Point of Care 269 mg/dL (70-110)
[2019-08-11] MEDS: docusate sodium 100 mg Capsule PO (20:41)
[2019-08-11 20:42] LABS: Glucose Point of Care 261 mg/dL (70-110)
[2019-08-11] MEDS: meclizine 25 mg tablet PO (21:01)
[2019-08-11] MEDS: diphenhydrAMINE 50 mg Capsule PO (21:01)
[2019-08-11] MEDS: acetaminophen 325 mg Tablet 650 MG PO (21:01)
[2019-08-11] MEDS: triamcinolone 0.1% cream 15 gm 1 APPLIC TOPICAL (21:02)
[2019-08-12] VITALS (8 sets, daily range): BP systolic 110–122; BP diastolic 53–74; PULSE 61–73; RESP 18; TEMP 36.3–37.2; O2SAT 97–100; BMI 44.4
[2019-08-12 03:34] LABS: Glucose Point of Care 198 mg/dL (70-110)
[2019-08-12] MEDS: sucralfate 1 gm Tablet PO ×4 (06:10→21:28)
[2019-08-12] MEDS: doxycycline 100 mg Tablet PO ×2 (06:10→18:18)
[2019-08-12 06:36] LABS: Glucose Point of Care 168 mg/dL (70-110)
[2019-08-12] MEDS: insulin glargine 100 units/1 mL 70 UNIT SUBCUT ×2 (07:29→19:58)
[2019-08-12] MEDS: allopurinol 300 mg Tablet PO ×2 (08:39→18:18)
[2019-08-12] MEDS: clopidogrel 75 mg Tablet PO (08:39)
[2019-08-12] MEDS: lisinopril 5 mg Tablet PO (08:39)
[2019-08-12] MEDS: pantoprazole DR 40 mg Tablet PO ×2 (08:39→18:18)
[2019-08-12] MEDS: atorvastatin 40 mg Tablet PO (08:39)
[2019-08-12] MEDS: isosorbide mononitrate ER 30 mg Tablet PO (08:40)
[2019-08-12] MEDS: metoprolol tartrate 25 mg Tablet 12.5 MG PO ×2 (08:40→21:28)
[2019-08-12] MEDS: fluticasone nasal spray 16gm Btl 2 SPRAY INTRANASAL (08:40)
[2019-08-12] MEDS: nystatin powder 15 gm Btl 1 APPLIC TOPICAL ×2 (08:40→18:19)
[2019-08-12] MEDS: predniSONE 20 mg Tablet 40 MG PO (08:40)
[2019-08-12] MEDS: silver sulfadiazine cream 1% 50 gm 1 APPLIC TOPICAL ×2 (08:41→18:19)
--- NOTE | 2019-08-12 10:42 | P.PN_ITS ---
Subjective Subjective: Interval history: No acute event overnight. Patient continues to do well. Has remained afebrile. Blood pressure remained stable. Rash seems to be improving as well. Denies of having any itching. It is looking less aggressive and right on the upper part of body. Improving in the legs as well. Complaining of left wrist pain which she states has been going on for a long time and wants to get checked. Complaining of constipation but no nausea or vomiting. Vitals/I&O/Wt Last Vital Signs Temp 98.1 F 08/12/19 07:26 Pulse 64 08/12/19 08:42 Resp 18 08/12/19 08:42 BP 122/53 08/12/19 07:26 Pulse Ox 99 08/12/19 08:42 08/11/19 08/12/19 08/12/19 22:59 06:59 14:59 Intake Total 400 / 1040 580 / 580 Output Total 1200 / 1600 Balance 400 / 640 -1200 / -560 580 / 580 Weight last 48 hrs Weight 136.305 kg Weight 136.305 kg Physical Exam Const: COMMON NORMALS: patient oriented x3 and alert GENERAL APPEARANCE: cooperative NUTRITIONAL APPEARANCE: obese ORIENTATION/CONSCIOUSNESS: Yes awake, Yes oriented to person, Yes oriented to place and Yes oriented to time HENMT: COMMON NORMALS: normocephalic and atraumatic HEAD & SCALP: normoce phalic and atraumatic Eye: COMMON NORMALS: Equal, round and reactive pupils present PUPIL: Yes Equal, round and reactive pupils present Neck/C-Spine: COMMON NORMALS: supple GENERAL: Yes normal visual inspection OTHER: Anterior cervical lymphadenopathy present Resp: COMMON NORMALS: normal respiratory effort and clear to auscultation bilaterally EFFORT & INSPECTION: Yes able to speak in complete sentences AUSCULTATION: clear to auscultation bilaterally, no rhonchi and no wheezes Cardio: COMMON NORMALS: No murmurs present (Cardio) OTHER: Regular rate and rhythm, no appreciable murmur GI: COMMON NORMALS: Soft to palpation and non-tender INSPECTION: No abdominal distension AUSCULTATION: Yes normoactive bowel sounds PALPATION: Yes Soft to palpation : COMMON NORMALS: Yes no CVA tenderness BLADDER/KIDNEY EXAM: Yes no CVA tenderness OTHER: Khan catheter in place Back/Pelvis: COMMON NORMALS: no CVA tenderness OTHER: Diffuse maculopapular rash from the neck to the feet bilaterally, sparing face. much improved Extremity: COMMON NORMALS: no calf tenderness NARRATIVE EXTREMITY EXAM: Nonpitting edema in the lower extremities bilaterally, negative Homans sign in the lower extremities bilaterally Neuro: COMMON NORMALS: patient oriented x3, CN's II-XII intact bilaterally, moves all extremities and no focal motor deficits SENSORIUM/ORIENTATION: Yes alert, Yes oriented to person, Yes oriented to place and Yes oriented to time SPEECH: speech normal Psych: COMMON NORMALS: mental status grossly normal and cooperative Skin: NARRATIVE SKIN EXAM: Improving. 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 Diffuse micropapular and morbilliform rash all over the body sparing neck above and mucous membranes, blisters in right inner aspect of the thigh and some ruptured blisters present below the pannus and posterior aspect of the right arm and right left pleural chest wall. Urinary Catheter Management^: Khan: Cath Placed During This Visit: yes, but has since been removed by the nurse Reason for Continuing Indwelling Catheter: Accurate Measurement of Urinary Outp ut in Critically Ill Patients Urinary Catheter Date of Insertion: 08/06/19 Urinary Catheter Time of Insertion: 21:45 Date Urinary Catheter Removed: 08/09/19 Time Urinary Catheter Discontinued: 14:00 Data : 08/11/19 06:30 08/11/19 06:30 Micro: Microbiology 08/06/19 10:10 Blood Culture - Final Blood NO GROWTH AFTER 5 DAYS 08/06/19 10:05 Blood Culture - Final Blood NO GROWTH AFTER 5 DAYS A&P Assessment and plan (1) Cellulitis of both lower extremities: Ruled out Status: Acute (2) Macular erythematous rash: Status: Acute (3) Septic shock: Status: Acute (4) CKD (chronic kidney disease): Status: Acute (5) Hypertension: Status: Acute (6) Diabetes: Status: Acute (7) UTI due to extended-spectrum beta lactamase (ESBL) producing Escherichia coli: Status: Acute Additional A&P Information Diffuse maculopapular rash: Improving. All over the body except the neck and the mucous membrane. Etiology could be widespread. Unlikely SJS, TEN because of mucosal membrane sparing. Unlikely dress syndrome because blood work is not consistent could be Staphylococcus scalded syndrome but blood cultures have remained negative. Could be secondary to ecthyma gangrenosum from gram-negative non-bacteremia but blood cultures have remained negative. Given the chronology of the events it could be secondary to drug reaction possibly from penicillin. Patient's eosinophil at the start were high. Patient is already on high-dose steroids for last 2 days so skin biopsy yield will be low. Last day of prednisone 40 mg today. 20 mg from tomorrow. Most likely will do a slow taper. Patient would most likely need Derm follow-up as an outpatient. Day 7 of Doxy. Will possibly need 3 more days to finish a course. Sepsis secondary to ESBL UTI: Sepsis resolved. Patient is already on imipenem. Day 4 of treatment today. Patient would most likely need overall 5-day of antibiotics. CKD: Creat improving and back to baseline. Most likley KEN due to sepsis and dehydration from extensive weeping. Patient tolerating oral diet well. Stop fluids. HTN: BP better. Goal BP 140/90 mmhg. C/w home dose of lisinopril, metoprolol, imdur Poorly controlled diabetes mellitus type 2: Blood sugars better controlled today. Carb consistent diet. Continue with insulin sliding scale at current dose. Continue with Lantus 70 units twice daily. In last 24 hours has required 18 units of Humalog along with Lantus. Lantus will continue the same dose but as prednisone is decreasing tomorrow we will see how the blood sugars do. Recent diagnosis of duodenal ulcer and upper GI bleed: Anemia appears to be stable at this time, no evidence of any continued bleeding Coronary artery disease: Without acute chest pain or shortness of breath COPD: Without acute exacerbation Morbid obesity Vitamin B deficiency Vitamin D deficiency DVT prophylaxis: SCDs, no pharmacologic prophylaxis due to recent GI bleed and anemia Diet: Carb consistent diet Full code. Dispo plan: Patient's who lives with her at the same home states they are both estranged but live with the same home and is usually not able to take care of her. He states patient usually does what ever she feels like. Had an extensive discussion with patient regarding safe discharge planning. She states no matter what she would like to go home and is denying SNF placement. She states she is willing to go home with home health. Patient continues to do well most likely will discharge tomorrow with home health. Attestations Medical Necessity Statement*: Diffuse maculopapular rash, drug reaction, ESBL UTI Time Spent in Patient Care: Greater than 35 minutes (>than 50% of time spent in counselling and/or direct pt care on unit) . 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
--- NOTE | 2019-08-12 10:51 | PC.NURSE ---
Dr. Montague Patient educated by physician that if everything looks good then she willbe discharged tomorrow. Continued IV antibiotics and added miralax at patients request as well as x-ray of left wrist per patient request. Patient stated she understood the instructions given. Discussed Home Health for at least 2 weeks following hospital stay.
[2019-08-12] MEDS: polyethylene glycol 3350 Pkt 17 gm PO (10:54)
--- NOTE | 2019-08-12 10:57 | XRR_ITS ---
PROCEDURE INFORMATION: Exam: XR Left Wrist Exam date and time: 08/12/2019 10:58 AM Age: 69 years old Clinical indication: Left; Patient HX: Pain in L wrist, no known injury TECHNIQUE: Imaging protocol: XR Left wrist. Views: 1 or 2 views. COMPARISON: No relevant prior studies available. FINDINGS: Bones/joints: Degenerative change and chondrocalcinosis. No acute bony injury or malalignment. Soft tissues: Mild soft tissue swelling. XR/XR wrist LT 2V [id number] IMPRESSION: Degenerative change and chondrocalcinosis.
[2019-08-12 12:10] LABS: Glucose Point of Care 160 mg/dL (70-110)
[2019-08-12 16:35] LABS: Glucose Point of Care 202 mg/dL (70-110)
[2019-08-12 16:45] LABS: Francisella Tularensis DA <1:20
[2019-08-12 21:07] LABS: Glucose Point of Care 255 mg/dL (70-110)
[2019-08-12] MEDS: docusate sodium 100 mg Capsule PO (21:28)
[2019-08-12] MEDS: meclizine 25 mg tablet PO (21:34)
[2019-08-12] MEDS: diphenhydrAMINE 50 mg Capsule PO (21:34)
[2019-08-12] MEDS: triamcinolone 0.1% cream 15 gm 1 APPLIC TOPICAL (21:35)
[2019-08-13] VITALS: BP 113/62; PULSE 60; RESP 18; TEMP 36.3; O2SAT 97
[2019-08-13 04:00] VITALS: BP 121/73; PULSE 71; RESP 17; TEMP 37.1; O2SAT 97
[2019-08-13 05:55] LABS: Basophils % 0.2 %; Eosinophils # 0.2 10^3/uL (0.0-0.8); Eosinophils % 4.3 %; Hematocrit 27.9 % (37.0-47.0); Hemoglobin 8.2 g/dL (11.5-15.3); Lymphocytes # 1.2 10^3/uL (0.8-4.8); Lymphocytes % 21.6 %; Mean Corpuscular HGB Conc 29.4 g/dL (30.0-36.0); Mean Corpuscular Hemoglobin 27.2 pg (28.0-34.0); Mean Corpuscular Volume 92.4 fL (81-99); Mean Platelet Volume 10.1 fL (7.4-10.4); Monocytes # 0.3 10^3/uL (0.2-0.9); Monocytes % 5.3 %; Neutrophils # 3.6 10^3/uL (1.8-7.7); Neutrophils % 67.8 %; Nucleated Red Blood Cells % 0 %; Platelet Count 86 10^3/cmm (130-400); Red Blood Count 3.02 10^6/uL (4.1-5.3); Red Cell Distribution Width 17.1 % (12.1-15.1); White Blood Count 5.3 10^3/uL (4.0-10.0)
[2019-08-13 06:00] VITALS: BMI 44.4
[2019-08-13 06:07] LABS: Alanine Aminotransferase 21 U/L (0-33); Alkaline Phosphatase 143 IU/L (35-105); Anion Gap 12.1 (5-19); Aspartate Amino Transferase 23 U/L (0-32); Blood Urea Nitrogen 38 mg/dL (8-23); Carbon Dioxide 23 mmol/L (22-29); Chloride 105 mmol/L (98-107); Globulin 2.6 g/dL (1.3-4.6); Glomerular Filtration Rate 54.8 mL/min (90-130); Glucose 172 mg/dL (65-115); Osmolality Calculated 284 mOsm/kg (285-295); Potassium 4.1 mmol/L (3.5-5.1); Sodium 136 mmol/L (136-145); Total Bilirubin 0.5 mg/dL (0.15-1.2); Total Protein 5.6 g/dL (6.6-8.7)
[2019-08-13] MEDS: sucralfate 1 gm Tablet PO ×2 (06:28→10:00)
[2019-08-13] MEDS: doxycycline 100 mg Tablet PO (06:28)
[2019-08-13 06:35] LABS: Glucose Point of Care 189 mg/dL (70-110)
[2019-08-13 08:00] VITALS: BP 105/61; PULSE 64; RESP 18; TEMP 36.6; O2SAT 98
[2019-08-13] MEDS: pantoprazole DR 40 mg Tablet PO (09:40)
[2019-08-13] MEDS: metoprolol tartrate 25 mg Tablet 12.5 MG PO (09:40)
[2019-08-13] MEDS: allopurinol 300 mg Tablet PO (09:40)
[2019-08-13] MEDS: isosorbide mononitrate ER 30 mg Tablet PO (09:41)
[2019-08-13] MEDS: lisinopril 5 mg Tablet PO (09:41)
[2019-08-13] MEDS: clopidogrel 75 mg Tablet PO (09:41)
[2019-08-13] MEDS: predniSONE 20 mg Tablet PO (09:41)
[2019-08-13] MEDS: atorvastatin 40 mg Tablet PO (09:41)
[2019-08-13] MEDS: insulin glargine 100 units/1 mL 70 UNIT SUBCUT (09:42)
[2019-08-13] MEDS: fluticasone nasal spray 16gm Btl 2 SPRAY INTRANASAL (09:43)
[2019-08-13] MEDS: silver sulfadiazine cream 1% 50 gm 1 APPLIC TOPICAL (09:44)
[2019-08-13] MEDS: nystatin powder 15 gm Btl 1 APPLIC TOPICAL (09:44)
[2019-08-13] MEDS: meclizine 25 mg tablet PO (09:59)
--- NOTE | 2019-08-13 10:56 | PM.DCS ---
Discharge Providers Date of Admission: 08/06/19 13:56 Date of Discharge: August 13, 2019 Attending Provider at Admission: Marichuy Toro DO Attending Provider at Discharge: Henrique Nobles MD Primary Care Provider: Shannon Earl MD Diagnoses at Discharge Discharge Diagnosis (1) Cellulitis of both lower extremities: Status: Acute (2) Macular erythematous rash: Status: Acute (3) Septic shock: Status: Acute (4) CKD (chronic kidney disease): Status: Acute (5) Hypertension: Status: Acute (6) Diabetes: Status: Acute (7) UTI due to extended-spectrum beta lactamase (ESBL) producing Escherichia coli: Status: Acute Reason for Visit Reason for Visit: rash/sob/dizzy Hospital Course Discharge Summary: Yesika Sanchez is a 69 year old female with an interesting medical history. I have reviewed her chart in detail. Based on the medical record, on July 17 the patient presented to her primary care provider's office with left lower extremity wound that had grown in size and was erythematous and warm. The patient at the time was given a dose of ceftriaxone and started on clindamycin. The patient went back to her primary care doctor's office on July 23 at this time, the clindamycin was discontinued and the patient was started on Keflex as the wound did not get better. The patient went back to her primary care doctor's office the very next day and was found to have no significant improvement in her wound. The patient then presented to the ED on July 24 and it appears she was given a dose of vancomycin and sent home with Keflex. The patient went back to her primary care doctor's office on July 29 with bilateral lower extremity swelling and was started on furosemide 80 mg twice a day. The patient presented to the ED on August 05 with diffuse morbilliform and papular macular rash which were itchy and of 4 days duration the patient was also found to be suffering from acute kidney injury, hypertensive and found to have urinary tract infection. The patient was treated with broad-spectrum antibiotic. Over the last few days her hemodynamics has gotten better. Patient came off the pressors and was transferred to the floor on August 08. Urine cultures were positive for ESBL E. coli for which she was transferred over to imipenem and has done well on that. She has finished a course of 5-day of IV antibiotics. For her maculopapular rash etiology could be widespread. It is unlikely SJS, TPN because of no mucosal membrane involvement. It was unlikely dress syndrome because blood work was not consistent. Given the chronology of events it was thought it could be most likely because of drug reaction from Keflex. Patient was started on prednisone 40 mg for 5 days to which she responded remarkably well and her rash started improving with no more itching and pain and lightening of the color by the day of discharge. At present the skin is scaling of at the areas of the rash without any remnant scars. For her diabetes. It was difficult to control at baseline but became even more difficult after starting of steroids. Her dose of longstanding insulin was increased and is present on 70 units twice daily. Overall patient is doing a lot better and is been discharged in hemodynamically stable condition with advised to take prednisone 20 mg for next 5 days after that 10 mg for next 5 days and then stop. She is advised to follow-up with dermatology within next 7 to 10 days. She is been set up with home health for further rehabilitation and medication care. She has been sent home on Lantus 60 units twice daily as a dose of prednisone has been decreased. She will continue to take NovoLog pre-meals as per the blood sugar levels. She is advised to follow-up with her primary care physician within next 7 to 10 days as well. Physical Exam Const: COMMON NORMALS: patient oriented x3 and alert GENERAL APPEARANCE: cooperative NUTRITIONAL APPEARANCE: obese ORIENTATION/CONSCIOUSNESS: Yes awake, Yes oriented to person, Yes oriented to place and Yes oriented to time HENMT: COMMON NORMALS: normocephalic and atraumatic HEAD & SCALP: normocephalic and atraumatic Eye: COMMON NORMALS: Equal, round and reactive pupils present PUPIL: Yes Equal, round and reactive pupils present Neck/C-Spine: COMMON NORMALS: supple GENERAL: Yes normal visual inspection OTHER: Anterior cervical lymphadenopathy present Resp: COMMON NORMALS: normal respiratory effort and clear to auscultation bilaterally EFFORT & INSPECTION: Yes able to speak in complete sentences AUSCULTATION: clear to auscultation bilaterally, no rhonchi and no wheezes Cardio: COMMON NORMALS: No murmurs present (Cardio) OTHER: Regular rate and rhythm, no appreciable murmur GI: COMMON NORMALS: Soft to palpation and non-tender INSPECTION: No abdominal distension AUSCULTATION: Yes normoactive bowel sounds PALPATION: Yes Soft to palpation : COMMON NORMALS: Yes no CVA tenderness BLADDER/KIDNEY EXAM: Yes no CVA tenderness OTHER: Khan catheter in place Back/Pelvis: COMMON NORMALS: no CVA tenderness OTHER: Diffuse maculopapular rash from the neck to the feet bilaterally, sparing face. much improved Extremity: COMMON NORMALS: no calf tenderness NARRATIVE EXTREMITY EXAM: Nonpitting edema in the lower extremities bilaterally, negative Homans sign in the lower extremities bilaterally Neuro: COMMON NORMALS: patient oriented x3, CN's II-XII intact bilaterally, moves all extremities and no focal motor deficits SENSORIUM/ORIENTATION: Yes alert, Yes oriented to person, Yes oriented to place and Yes oriented to time SPEECH: speech normal Psych: COMMON NORMALS: mental status grossly normal and cooperative Skin: NARRATIVE SKIN EXAM: Improving. 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 Diffuse micropapular and morbilliform rash all over the body sparing neck above and mucous membranes, blisters in right inner aspect of the thigh and some ruptured blisters present below the pannus and posterior aspect of the right arm and right left pleural chest wall. Urinary Catheter Management^: Khan: Cath Placed During This Visit: yes, but has since been removed by the nurse Reason for Continuing Indwelling Catheter: Accurate Measurement of Urinary Output in Critically Ill Patients Urinary Catheter Date of Insertion: 08/06/19 Urinary Catheter Time of Insertion: 21:45 Date Urinary Catheter Removed: 08/09/19 Time Urinary Catheter Discontinued: 14:00 Discharge Data Data Completed and Pending: Completed Studies During Hospitalization Category Date Time Status XR chest 1V ophelia ble [id number] Routine Exams 08/07/19 09:34 Completed XR wrist LT 2V 73 100 Routine Exams 08/12/19 10:57 Completed Pending at discharge Category Date Time Status Hepatitis B Virus DNA PCR Routine Lab 08/11/19 06:30 Received Respiratory Viral Panel PCR Routine Lab 08/07/19 17:23 Received Labs from last 24 hours 08/13/19 08/13/19 08/13/19 06:25 04:54 04:54 WBC 5.3 RBC 3.02 L Hgb 8.2 L Hct 27.9 L MCV 92.4 MCH 27.2 L MCHC 29.4 L RDW 17.1 H Plt Count 86 L MPV 10.1 Neut % (Auto) 67.8 Lymph % (Auto) 21.6 [place] % (Auto) 5.3 Eos % (Auto) 4.3 Baso % (Auto) 0.2 Neut # (Auto) 3.6 Lymph # (Auto) 1.2 [place] # (Auto) 0.3 Eos # (Auto) 0.2 Baso # (Auto) 0.0 Nucleated RBC % (a uto) 0 Nucleated RBCs # 0.0 Sodium 136 Potassium 4.1 Chloride 105 Carbon Dioxide 23 Anion Gap 12.1 BUN 38 H Creatinine 1.0 H GFR Calculation 54.8 L Glucose 172 H POC Glucose 189 Calculated Osmolal ity 284 L Calcium 11.0 H Total Bilirubin 0.5 AST 23 ALT 21 Alkaline Phosphata se 143 H Total Protein 5.6 L Albumin 3.0 L Globulin 2.6 F. tularensis Ab 08/12/19 08/12/19 08/12/19 20:55 16:27 11:16 WBC RBC Hgb Hct MCV MCH MCHC RDW Plt Count MPV Neut % (Auto) Lymph % (Auto) [place] % (Auto) Eos % (Auto) Baso % (Auto) Neut # (Auto) Lymph # (Auto) [place] # (Auto) Eos # (Auto) Baso # (Auto) Nucleated RBC % (a uto) Nucleated RBCs # Sodium Potassium Chloride Carbon Dioxide Anion Gap BUN Creatinine GFR Calculation Glucose POC Glucose 255 202 160 Calculated Osmolal ity Calcium Total Bilirubin AST ALT Alkaline Phosphata se Total Protein Albumin Globulin F. tularensis Ab 08/07/19 09:36 WBC RBC Hgb Hct MCV MCH MCHC RDW Plt Count MPV Neut % (Auto) Lymph % (Auto) [place] % (Auto) Eos % (Auto) Baso % (Auto) Neut # (Auto) Lymph # (Auto) [place] # (Auto) Eos # (Auto) Baso # (Auto) Nucleated RBC % (a uto) Nucleated RBCs # Sodium Potassium Chloride Carbon Dioxide Anion Gap BUN Creatinine GFR Calculation Glucose POC Glucose Calculated Osmolal ity Calcium Total Bilirubin AST ALT Alkaline Phosphata se Total Protein Albumin Globulin F. tularensis Ab <1:20 Vitals: Last Vital Signs Temp 97.8 F 08/13/19 08:00 Pulse 64 08/13/19 08:00 Resp 18 08/13/19 08:00 BP 105/61 08/13/19 08:00 Pulse Ox 98 08/13/19 08:00 Discharge Plan Discharge Patient Disposition: Home Health Service Condition: Stable Prescriptions: New doxycycline monohydrate 100 mg Tablet 100 mg PO Q12H Qty: 6 RF: 0 silver sulfadiazine 1 % Cream 1 applic topical BID Qty: 50 RF: 0 metoprolol tartrate 25 mg Tablet 12.5 mg PO Q12H Qty: 30 RF: 0 prednisone 10 mg tablet 10 mg PO DAILY Qty: 15 RF: 0 Continued albuterol sulfate [Ventolin HFA] 90 mcg/actuation HFA aerosol inhaler 2 puff INHALATION Q6H PRN (Reason: Shortness Of Breath) RF: 0 cholecalciferol (vitamin D3) 2,000 unit tablet 2,000 unit PO DAILY RF: 0 cyclobenzaprine 10 mg tablet 10 mg PO TID Qty: 90 RF: 3 allopurinol 300 mg tablet 300 mg PO BID Qty: 60 RF: 5 atorvastatin [Lipitor] 40 mg tablet 40 mg PO DAILY Qty: 30 RF: 5 fluticasone propionate 50 mcg/actuation spray,suspension 2 spray INTRANASAL DAILY Qty: 15.8 RF: 2 lisinopril 5 mg tablet 5 mg PO DAILY Qty: 60 RF: 0 potassium chloride 20 mEq tablet extended release 20 meq PO BID Qty: 90 RF: 3 nitroglycerin [Nitrostat] 0.4 mg tablet, sublingual 0.4 mg SUBLINGUAL Q5M PRN (Reason: Chest Pain) Qty: 20 RF: 3 meclizine 25 mg tablet 25 mg PO TID PRN (Reason: dizziness) Qty: 90 RF: 0 isosorbide mononitrate 30 mg tablet extended release 24 hr 30 mg PO DAILY Qty: 30 RF: 5 sucralfate 1 gram tablet See Rx Instructions .ROUTE .COMPLEX Qty: 120 RF: 0 insulin aspart U-100 [Novolog U-100 Insulin aspart] 100 unit/mL solution See Rx Instructions .ROUTE .COMPLEX Qty: 30 RF: 3 diclofenac sodium [Voltaren] 1 % gel 4 gm TOPICAL QID RF: 0 pantoprazole 40 mg tablet,delayed release (DR/EC) 40 mg PO BID RF: 0 loratadine [Claritin] 10 mg tablet 10 mg PO Q24H PRN (Reason: Allergy Symptoms) RF: 0 Plavix 75 mg Tablet 75 mg PO DAILY RF: 0 Levemir U-100 Insulin 100 unit/mL solution See Rx Instructions .ROUTE .COMPLEX Qty: 70 RF: 0 Discontinued furosemide 80 mg tablet 80 mg PO BID Qty: 60 RF: 1 metoprolol tartrate 50 mg tablet 50 mg PO BID Qty: 180 RF: 0 Discharge Orders: Discharge Order (Routine); Ordered 08/13/19 Ordered By: Henrique Nobles Referrals: [facility] [Outside] Shannon Earl MD [Primary Care Provider] - 08/20/19 1:20 pm Dorothy Moreno MD [Physician] - 7-10 days Discharge Diet: Cardiac and Diabetic Discharge Activity: Resume usual activity Patient Instructions: Silver Sulfadiazine (On the skin), Metoprolol (By mouth), Doxycycline (By mouth), Prednisone (By mouth), Urinary Tract Infection in Women (DC), Sepsis (DC), Acute Rash (DC) Activity Restrictions/Additional Instructions: Please follow-up with your primary care provider within the next 2 weeks. Please follow-up with Dr. Moreno with dermatology for the next 7 to 10 days for your extensive rash. For rash take 20 mg of prednisone for next 5 days after that to 10 mg for next 5 days and then stop. The dose of metoprolol has been decreased to 12.5 mg twice daily. Please check your blood sugars pre-meals and take NovoLog accordingly. If sugars mildly higher for next 10 days because of oral steroids. Discharge Attestations Time Spent in Discharge Care*: greater than 30 min Specific Discharge Activities: Specific discharge activities: educating patient, discussing with case technician/social workers/dc planners, documenting/other paperwork and evaluating patient/reviewing data Status at Discharge: Cognitive status at discharge: cognitively intact, Behavioral status at discharge: cooperative, Functional status at discharge: uses cane/walker Overall status at discharge: patient is back to baseline Quality Metrics Clinical Quality Measures During this hospital stay, did patient experience: None Coding Level of Care Code 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
[2019-08-13 10:57] VITALS: PULSE 65; RESP 18; O2SAT 97
[2019-08-13 11:40] LABS: Glucose Point of Care 162 mg/dL (70-110)
[2019-08-13 12:00] VITALS: BP 111/62; PULSE 68; RESP 18; TEMP 36.7; O2SAT 98
--- NOTE | 2019-08-13 12:32 | PC.SOCIAL ---
IMM Updated Updated pt on Pg 2 IMM. Pt verbally understands. Provided pt a copy. Signed, dated, & timed the copy in pt's chart.
[2019-08-13 13:59] VITALS: BP 111/62; PULSE 68; RESP 18; TEMP 36.7; O2SAT 98
[2019-08-16 20:30] LABS: Adenovirus Not Detected (Not Detected); Human Metapneumovirus Not Detected (Not Detected); Human Parainflu Virus 1 Not Detected (Not Detected); Human Parainflu Virus 2 Not Detected (Not Detected); Human Parainflu Virus 3 Not Detected (Not Detected); Human Rsv A Not Detected (Not Detected); Influenza A Not Detected (Not Detected); Influenza B Not Detected (Not Detected); Rhinovirus/Enterovirus Not Detected (Not Detected)
[2019-08-18 07:00] LABS: Hepatitis B Virus DNA <10 NOT DETECTED IU/mL (NOT DETECTED); Hepatitis B Virus DNA PCR <1.00 NOT DETECTED Log IU/mL (NOT DETECTED)
== END 2019-08-13 13:05 | disposition home health service (06) | DRG 871 ==
LOC: ER 09:18 → ICU 14:43 → MEDSURG 08-09 21:45
PROVIDERS: Admitting Provider Family Medicine; Emergency Provider Family Medicine; PCP Family Medicine; Visit Provider Student in an Organized Health Care Education/Training Program
DX: A41.9 Sepsis, unspecified organism (principal); R65.21 Severe sepsis with septic shock; L03.115 Cellulitis of right lower limb; N17.9 Acute kidney failure, unspecified; Z68.41 Body mass index [BMI] 40.0-44.9, adult; N39.0 Urinary tract infection, site not specified; Z16.12 Extended spectrum beta lactamase (ESBL) resistance; B96.20 Unspecified Escherichia coli [E. coli] as the cause of diseases classified elsewhere; E11.22 Type 2 diabetes mellitus with diabetic chronic kidney disease; I12.9 Hypertensive chronic kidney disease with stage 1 through stage 4 chronic kidney disease, or unspecified chronic kidney disease; L53.9 Erythematous condition, unspecified; Z79.02 Long term (current) use of antithrombotics/antiplatelets; F41.9 Anxiety disorder, unspecified; E11.42 Type 2 diabetes mellitus with diabetic polyneuropathy; I25.10 Atherosclerotic heart disease of native coronary artery without angina pectoris; E78.5 Hyperlipidemia, unspecified; E66.01 Morbid (severe) obesity due to excess calories; Z95.5 Presence of coronary angioplasty implant and graft; Z87.891 Personal history of nicotine dependence; E86.0 Dehydration; D63.1 Anemia in chronic kidney disease; J44.9 Chronic obstructive pulmonary disease, unspecified; E53.9 Vitamin B deficiency, unspecified; E55.9 Vitamin D deficiency, unspecified
CPT/HCPCS: 12345; 36415; 36416; 51702; 71045; 73100; 80048; 80053; 81001; 82550; 82962; 83605; 83690; 84145; 84443; 85025; 85651; 85999; 86000; 86140; 86618; 86666; 86757; 86803; 87040; 87077; 87081; 87086; 87186; 87210; 87517; 87806; 87880; 96372; 96375; 97110; 97116; 97163; 97166; 97530; 97535; 99284; J0743; J1815; J2020; J2270; J2405; J2543; J3370; J3490; J7030; J7040; J7050; J7512; J8597; Q0163

== ENCOUNTER 2019-08-21 15:23 | Inpatient (IN) | payer MEDICARE, MEDICAID, SELFPAY ==
[2019-08-21 16:07] VITALS: BP 85/50; PULSE 79; RESP 16; TEMP 36.8; O2SAT 95; BMI 50.2
--- NOTE | 2019-08-21 16:23 | XRR_ITS ---
PROCEDURE INFORMATION: Exam: XR Chest, 1 View Exam date and time: 08/21/2019 5:17 PM Age: 69 years old Clinical indication: Other: Leg swelling/red; Patient HX: C/O R leg swelling and redness; Additional info: Pain TECHNIQUE: Imaging protocol: XR of the chest Views: Frontal portable upright view of the chest. COMPARISON: CR XR chest 1V portable [id number] 08/07/2019 9:38 AM FINDINGS: Lungs: The lungs are clear bilaterally. The pulmonary vasculature is normal. Pleural space: No pleural effusion. No pneumothorax. Heart/Mediastinum: The heart is normal in size and contour. Mediastinum: Stable. Vasculature: Moderate aortic arch atherosclerotic calcification without ectasia. Bones/joints: Stable. XR/XR chest 1V portable [id number] IMPRESSION: No acute cardiopulmonary abnormality identified.
--- NOTE | 2019-08-21 16:23 | USCV_ITS ---
Yesika Sanchez Age: 69 Gender: F : 1950 Exam Date: 08/21/2019 17:24 Ordering Phys: Joanne Craven DO Technologist: HOPE FIGUEROA Exam Location: [facility] [place]_ Indication: PAIN SWELLING PROCEDURES: Venous duplex imaging was performed in only the right lower extremity. The following venous structures were evaluated: common femoral vein, profunda vein, proximal portion of the greater saphenous vein, superficial femoral vein, and the popliteal vein. In addition, the posterior tibial and peroneal trunk were evaluated. Serial compression, augmentation maneuvers, and spectral Doppler flow evaluation were performed. FINDINGS: DVT is noted in the right pop and peroneal veins. There is also clot in the in the right GSV at the HC extending to high thigh. All other vessels examined appear free of clot at this time. CONCLUSIONS DVT right popliteal and peroneal veins. Additional thrombus right GSV at [place] canal extending to mid thigh. All other vessels are patent Wang Lozoya MD (Electronically Signed) Final Date: 22 August 2019 11:07 S
--- NOTE | 2019-08-21 16:28 | XRR_ITS ---
PROCEDURE INFORMATION: Exam: XR Right Tibia and Fibula Exam date and time: 08/21/2019 5:19 PM Age: 69 years old Clinical indication: Edema; Location not specified; Patient HX: C/O swelling and pain and redness R lower leg; Weeping; Additional info: Pain/swellng TECHNIQUE: Imaging protocol: XR Right tibia and fibula. Views: Frontal and lateral views. COMPARISON: CR XR knees AP WB w RT lmt ORTH 05/18/2019 11:01 AM FINDINGS: Bones/joints: No destructive bony process identified. Lateral compartment knee lateral articular marginal lipping. Soft tissues: Diffuse moderate soft tissue edema. No ectopic soft tissue gas or foreign body. Vasculature: Mild vascular calcification present. XR/XR tibia fibula RT 2V [id number] IMPRESSION: 1. Diffuse moderate soft tissue edema. Cellulitis not excluded. Clinical correlation is recommended. 2. No destructive bony process identified.
[2019-08-21 16:47] LABS: Basophils % 0.1 %; Eosinophils % 0.3 %; Hematocrit 28.9 % (37.0-47.0); Hemoglobin 8.5 g/dL (11.5-15.3); Lymphocytes # 0.6 10^3/uL (0.8-4.8); Lymphocytes % 4.8 %; Mean Corpuscular HGB Conc 29.4 g/dL (30.0-36.0); Mean Corpuscular Hemoglobin 27.2 pg (28.0-34.0); Mean Corpuscular Volume 92.6 fL (81-99); Monocytes # 0.6 10^3/uL (0.2-0.9); Monocytes % 4.2 %; Neutrophils # 12.12 10^3/uL (1.8-7.7); Neutrophils % 90.2 %; Nucleated Red Blood Cells % 0 %; Platelet Count 114 10^3/cmm (130-400); Red Blood Count 3.12 10^6/uL (4.1-5.3); Red Cell Distribution Width 19.1 % (12.1-15.1); White Blood Count 13.4 10^3/uL (4.0-10.0)
[2019-08-21 16:57] LABS: INR 1.19 (0.8-1.2)
[2019-08-21 16:58] LABS: Partial Thromboplastin Time 28.7 SECONDS (23.9-36.7)
[2019-08-21 17:01] LABS: Lactic Sepsis W/Reflex 1.4 mmol/L (0.5-2.2)
[2019-08-21 17:05] VITALS: RESP 18; O2SAT 97
[2019-08-21] MEDS: morphine 4 mg/mL SDV 1 mL IVP (17:05)
[2019-08-21] MEDS: ondansetron 2 mg/ML SDV 2 mL 4 MG IVP (17:06)
--- NOTE | 2019-08-21 17:19 | W.ED.EXTPRO ---
HPI - Extremity Problem General: Chief complaint: Extremity Problem,Nontraumatic Stated complaint: R leg swelling/weeping Time Seen by Provider: 08/21/19 16:26 Source: patient Mode of arrival: ambulatory Limitations: no limitations History of Present Illness: HPI Narrative: Yesika is a nice 69-year-old female who comes in complaining of right lower extremity pain and swelling. The symptoms have been present for the past 3 days. Scribes the pain as a dull aching pain that is always present. She denies any injury but she is suspicious that she may have been bitten by a spider. She denies any chest pain or shortness of breath. She denies any lightheadedness, dizziness or weakness. She is unaware if she had any fever and she has not been chilled. Patient states that she can tell something was wrong because the redness and because of this she came in for her evaluation. Associated symptoms: Deny chest pain, fever(s) or rash Review of Systems Const: Denies: fever(s), chills, body aches, fatigue, malaise or diaphoresis Eyes: Denies: change in vision, blurry vision, blind spots, photophobia, eye discharge or eye redness ENMT: Denies: throat pain, odynophagia, hoarseness, swelling of lips/tongue, oral sores, ear or mastoid pain, ear discharge, change in hearing or nasal discharge Card: Denies: chest pain, palpitations, irregular heart rhythm, edema, lightheadedness, syncope, pre-syncope, dyspnea on exertion or orthopnea Resp: Denies: dyspnea, productive cough, non-productive cough, wheezing, hemoptysis or chest congestion GI: Denies: abdominal pain, nausea, vomiting, hematemesis, coffee ground emesis, heartburn, diarrhea, constipation, GI cramping, hematochezia or melena : Denies: flank pain, dysuria, urinary frequency, urinary urgency or hematuria Musc: Reports: extremity pain and other (Right lower extremity pain and swelling with overlying erythema of the tib-fib area.); Denies: neck pain, back pain, extremity swelling, joint pain, joint swelling, joint redness, joint warmth or joint stiffness Skin/Breast: Denies: rash, pruritus, erythema, skin tenderness or jaundice Neuro: Denies: headache(s), numbness in extremities, weakness in extremities, sensory changes, lack of coordination, difficulty walking, dizziness, vertigo, confusion, Slurred speech present or seizure-like activity Steven/Lymph: Denies: easy bruising, easy bleeding, petechiae, purpura or enlarged lymph nodes All/Imm: Denies: urticaria, throat swelling, tongue swelling, facial swelling or acute wheezing PFSH ED PFSH: Medical History (Updated 08/21/19 @ 22:19 by Jairo Fuentes MD) Anxiety ASHD (arteriosclerotic heart disease) Back pain CHF (congestive heart failure) CKD (chronic kidney disease) Coronary artery disease DDD (degenerative disc disease) Decreased hearing of both ears Diabetes Diabetic polyneuropathy Duodenal ulcer Dyslipidemia History of GI bleed Hypertension Incarcerated incisional hernia Morbid obesity Morbilliform rash PUD (peptic ulcer disease) Vitamin B deficiency Vitamin D deficiency Surgical History H/O esophagogastroduodenoscopy (~06/05/19) H/O hernia repair History of coronary artery stent placement Cardiac cath on 12/13/2016 with stent placement to LAD Hx of section 3 Hx of cholecystectomy Hx of tonsillectomy S/P appendectomy S/P plastic surgery 2019, panniculectomy Family History Mother CAD (coronary artery disease) Other Hypertension Social History Smoking and tobacco status: former smoker Quit status (tobacco): has quit using tobacco Former quit date comment: 2.5 PPD x 40 yrs Alcohol intake: unknown Lives independently: Yes Household members: spouse Housing: House Marital status: Pets and animals: Yes History of recent travel: No Current gender identity: Female Female Reproductive History: Date of last menstrual period: 06/05/19 Physical Exam Const: COMMON NORMALS: no acute distress, patient oriented x3, no limitations, healthy appearing and well nourished GENERAL APPEARANCE: cooperative, well kempt and well developed HENMT: COMMON NORMALS: normocephalic, atraumatic, external ears normal, EAC's normal and Normal external nose present HEAD & SCALP: normal to inspection, normocephalic and atraumatic FACE & SINUS: normal facial exam and face symmetric NOSE: Normal external nose present and Normal nares present EXTERNAL EAR: Yes external ears normal EXTERNAL AUDITORY CANAL: EAC's normal MOUTH: Normal oral and palatal mucosa present, lip normal and tongue normal Eye: COMMON NORMALS: Equal, round and reactive pupils present and conjunctivae normal GENERAL EYE: appearance normal, both eyes and all related structures ALIGNMENT: Yes alignment normal PERIORBITAL: periorbital findings normal EYELID: eyelids normal CONJUNCTIVA: Yes conjunctivae normal SCLERA: sclerae normal PUPIL: Yes Equal, round and reactive pupils present Neck/C-Spine: COMMON NORMALS: full ROM, no lymphadenopathy, supple, no meningeal signs and no JVD GENERAL: Yes normal visual inspection and Yes trachea midline Chest: COMMONS NORMALS: normal inspection of the chest and normal palpation of entire chest wall Resp: COMMON NORMALS: normal respiratory effort, No retractions and No use of accessory muscles EFFORT & INSPECTION: Yes able to speak in complete sentences and Yes symmetric chest movement AUSCULTATION: no crackles, no rales, no rhonchi and no wheezes Cardio: COMMON NORMALS: no JVD, regular rate, regular rhythm, S1 normal heart sound present and S2 normal heart sound present RATE: regular rate RHYTHM: regular rhythm HEART SOUNDS: S1 normal heart sound present, S2 normal heart sound present, no click, no gallops, no murmurs, no rubs and abnormal split S2 GI: COMMON NORMALS: Soft to palpation and No hepatosplenomegaly present PALPATION: Yes Soft to palpation, No Tenderness to palpation present (GI), No Guarding due to palpation present (GI), No Rigid due to palpation, Yes No hepatosplenomegaly present, No Hernia present, No Palpable mass present and No Pulsatile mass present : COMMON NORMALS: Yes no CVA tenderness BLADDER/KIDNEY EXAM: Yes no CVA tenderness EXTERNAL FEMALE EXAM: No Hernia present Back/Pelvis: COMMON NORMALS: no CVA tenderness, thoracic and lumbar spine normal to inspection, no thoracic nor lumbar tenderness and thoraco-lumbar ROM normal Extremity: COMMON NORMALS: normal to inspection, full ROM, capillary refill normal, no joint enlargement and no clubbing, cyanosis or edema NARRATIVE EXTREMITY EXAM: Right lower extremity with pain and swelling with overlying erythema of the calf and anterior portion of the tib/fib. Neurovascular intact distal. Neuro: COMMON NORMALS: patient oriented x3, CN's II-XII intact bilaterally, moves all extremities, no focal motor deficits and no sensory deficits noted MENINGEAL SIGNS: Yes no meningeal signs SPEECH: speech normal Psych: COMMON NORMALS: mental status grossly normal, Normal thought process present, cooperative, normal affect, speech normal and activity/motor behavior normal APPEARANCE: Yes well kempt SPEECH: Yes normal speech THOUGHT PROCESS: Normal thought process present Skin: COMMON NORMALS: no rashes or lesions noted, turgor normal, no jaundice, no petechiae and no mottling GENERAL SKIN EXAM: no rashes or lesions noted and turgor normal Course Vital Signs: Vital signs: Vital Signs Temperature 98.2 F 08/21/19 16:07 Pulse Rate 61 08/21/19 23:06 Respiratory Rate 18 08/21/19 17:43 Blood Pressure 99/58 08/21/19 23:06 Pulse Oximetry 99 08/21/19 23:06 MDM - Extremity (Nontraumatic) MDM Narrative: Medical decision making narrative: The case was reviewed with Drs. Fuentes, Sonia and Lata. All are available if need be. Dr. Vaca will admit and put in orders. Lab Data: Attestation: I reviewed the patient's lab results. Labs: Lab Results 08/21/19 08/21/19 08/21/19 Range/Units 16:35 16:35 16:35 WBC 13.4 H (4.0-10.0) 10^3/ uL RBC 3.12 L (4.1-5.3) 10^6/u L Hgb 8.5 L (11.5-15.3) g/dL Hct 28.9 L (37.0-47.0) % MCV 92.6 (81-99) fL MCH 27.2 L (28.0-34.0) pg MCHC 29.4 L (30.0-36.0) g/dL RDW 19.1 H (12.1-15.1) % Plt Count 114 L (130-400) 10^3/c mm MPV 10.0 (7.4-10.4) fL Neut % (Auto) 90.2 % Lymph % (Auto) 4.8 % [place] % (Auto) 4.2 % Eos % (Auto) 0.3 % Baso % (Auto) 0.1 % Neut # (Auto) 12.12 H (1.8-7.7) 10^3/u L Lymph # (Auto) 0.6 L (0.8-4.8) 10^3/u L [place] # (Auto) 0.6 (0.2-0.9) 10^3/u L Eos # (Auto) 0.0 (0.0-0.8) 10^3/u L Baso # (Auto) 0.0 (0.0-0.1) 10^3/u L Nucleated RBC % (a uto) 0 % Nucleated RBCs # 0.0 /100WBC PT 15.50 H (10.5-13.3) SECO NDS INR 1.19 (0.8-1.2) APTT 28.7 (23.9-36.7) SECO NDS Sodium 131 L (136-145) mmol/L Potassium 4.4 (3.5-5.1) mmol/L Chloride 95 L (98-107) mmol/L Carbon Dioxide 29 (22-29) mmol/L Anion Gap 11.4 (5-19) BUN 39 H (8-23) mg/dL Creatinine 1.2 H (0.5-0.9) mg/dL GFR Calculation 44.4 L (90-130) mL/min Glucose 207 H (65-115) mg/dL Calculated Osmolal ity 276 L (285-295) mOsm/k g Lactic Acid (0.5-2.2) mmol/L Calcium 10.1 (8.5-10.5) mg/dL Total Bilirubin 1.2 (0.15-1.2) mg/dL AST 21 (0-32) U/L ALT 24 (0-33) U/L Alkaline Phosphata se 146 H (35-105) IU/L Creatine Kinase 31 (26-192) U/L Troponin T Baselin e (0-10) ng/L Troponin T 120 Min [place] (0-10) ng/L Delta Troponin T (0-10) ABS# NT-Pro-B Natriuret Pep (0-125) pg/mL Total Protein 6.1 L (6.6-8.7) g/dL Albumin 3.0 L (3.5-5.2) g/dL Globulin 3.1 (1.3-4.6) g/dL 08/21/19 08/21/19 08/21/19 Range/Units 16:35 16:35 16:35 WBC (4.0-10.0) 10^3/ uL RBC (4.1-5.3) 10^6/u L Hgb (11.5-15.3) g/dL Hct (37.0-47.0) % MCV (81-99) fL MCH (28.0-34.0) pg MCHC (30.0-36.0) g/dL RDW (12.1-15.1) % Plt Count (130-400) 10^3/c mm MPV (7.4-10.4) fL Neut % (Auto) % Lymph % (Auto) % [place] % (Auto) % Eos % (Auto) % Baso % (Auto) % Neut # (Auto) (1.8-7.7) 10^3/u L Lymph # (Auto) (0.8-4.8) 10^3/u L [place] # (Auto) (0.2-0.9) 10^3/u L Eos # (Auto) (0.0-0.8) 10^3/u L Baso # (Auto) (0.0-0.1) 10^3/u L Nucleated RBC % (a uto) % Nucleated RBCs # /100WBC PT (10.5-13.3) SECO NDS INR (0.8-1.2) APTT (23.9-36.7) SECO NDS Sodium (136-145) mmol/L Potassium (3.5-5.1) mmol/L Chloride (98-107) mmol/L Carbon Dioxide (22-29) mmol/L Anion Gap (5-19) BUN (8-23) mg/dL Creatinine (0.5-0.9) mg/dL GFR Calculation (90-130) mL/min Glucose (65-115) mg/dL Calculated Osmolal ity (285-295) mOsm/k g Lactic Acid 1.4 (0.5-2.2) mmol/L Calcium (8.5-10.5) mg/dL Total Bilirubin (0.15-1.2) mg/dL AST (0-32) U/L ALT (0-33) U/L Alkaline Phosphata se (35-105) IU/L Creatine Kinase (26-192) U/L Troponin T Baselin e 57 H (0-10) ng/L Troponin T 120 Min [place] (0-10) ng/L Delta Troponin T (0-10) ABS# NT-Pro-B Natriuret Pep 511 H (0-125) pg/mL Total Protein (6.6-8.7) g/dL Albumin (3.5-5.2) g/dL Globulin (1.3-4.6) g/dL 08/21/19 08/21/19 Range/Units 20:13 22:28 WBC (4.0-10.0) 10^3/ uL RBC (4.1-5.3) 10^6/u L Hgb (11.5-15.3) g/dL Hct (37.0-47.0) % MCV (81-99) fL MCH (28.0-34.0) pg MCHC (30.0-36.0) g/dL RDW (12.1-15.1) % Plt Count 102 L (130-400) 10^3/c mm MPV (7.4-10.4) fL Neut % (Auto) % Lymph % (Auto) % [place] % (Auto) % Eos % (Auto) % Baso % (Auto) % Neut # (Auto) (1.8-7.7) 10^3/u L Lymph # (Auto) (0.8-4.8) 10^3/u L [place] # (Auto) (0.2-0.9) 10^3/u L Eos # (Auto) (0.0-0.8) 10^3/u L Baso # (Auto) (0.0-0.1) 10^3/u L Nucleated RBC % (a uto) % Nucleated RBCs # /100WBC PT (10.5-13.3) SECO NDS INR (0.8-1.2) APTT (23.9-36.7) SECO NDS Sodium (136-145) mmol/L Potassium (3.5-5.1) mmol/L Chloride (98-107) mmol/L Carbon Dioxide (22-29) mmol/L Anion Gap (5-19) BUN (8-23) mg/dL Creatinine (0.5-0.9) mg/dL GFR Calculation (90-130) mL/min Glucose (65-115) mg/dL Calculated Osmolal ity (285-295) mOsm/k g Lactic Acid (0.5-2.2) mmol/L Calcium (8.5-10.5) mg/dL Total Bilirubin (0.15-1.2) mg/dL AST (0-32) U/L ALT (0-33) U/L Alkaline Phosphata se (35-105) IU/L Creatine Kinase (26-192) U/L Troponin T Baselin e (0-10) ng/L Troponin T 120 Min [place] 45.30 H (0-10) ng/L Delta Troponin T -11.70 L (0-10) ABS# NT-Pro-B Natriuret Pep (0-125) pg/mL Total Protein (6.6-8.7) g/dL Albumin (3.5-5.2) g/dL Globulin (1.3-4.6) g/dL Imaging Data^: CXR: My impression: No acute cardiopulmonary findings. Rt. Tib/Fib: My impression: Soft tissue swelling but no obvious fracture, free air or foreign bodies noted. CT Chest: Radiologist's impression: [place] [address] CT Scan Report Signed with Addenda Patient: Yesika Sanchez Unit #: [id number] : 1950 Age/Sex: 69 / F ADM Date: 08/21/19 Loc: ER Room/Bed: Attending Dr: Ordering Provider/Ordering MD: Joanne Craven DO Date of Service: 08/21/19 Procedure(s): CT angio chest PE protcl [id number] Accession Number(s): [id number] Report Number: [id number]/CT angio chest PE protcl [id number] These critical findings were discussed with Dr. Craven by Dr. Navarro at 6:50 p.m. central time. Radiation Dose CTDIVOL = (mGy): DLP = 663.19 (mGy-cm) Addendum Dictated By: Alvaro Navarro Addendum Signed By: Alvaro Navarro Signed Date/Time: 08/21/19 1 851 Addendum Cosigned By: PROCEDURE INFORMATION: Exam: CT Angiography Chest With Contrast Exam date and time: 08/21/2019 6:07 PM Age: 69 years old Clinical indication: Other: Dvt present; Prior surgery; Surgery type: Gb TECHNIQUE: Imaging protocol: Computed tomographic angiography of the chest with intravenous contrast. 3D rendering: MIP and/or 3D reconstructed images were created by the technologist. Radiation optimization: All CT scans at this facility use at least one of these dose optimization techniques: automated exposure control; mA and/or kV adjustment per patient size (includes targeted exams where dose is matched to clinical indication); or iterative reconstruction. Contrast material: VISI 320; Contrast volume: 70 ml; Contrast route: INTRAVENOUS (IV); COMPARISON: CR XR chest 1V portable [id number] 08/21/2019 5:08 PM RADIATION DOSE METRICS: Total DLP (mGy-cm): 663.19 FINDINGS: Pulmonary arteries: Small filling defects within pulmonary artery branches of the right and left upper lobes, right middle lobe, and both lower lobes. Aorta: Mild aneurysmal dilatation of the ascending thoracic aorta measuring 4.7 cm. No dissection. Thyroid: 1.0 cm low-density nodule in the left thyroid lobe. No follow-up recommended. Lungs: 5 mm nodule in the left upper lobe, image 24. Pleural space: Unremarkable. No pneumothorax. No pleural effusion. Heart: Unremarkable. No cardiomegaly. No pericardial effusion. Lymph nodes: Unremarkable. No enlarged lymph nodes. Adrenals: 2.2 cm left adrenal nodule, Hounsfield units 38. Kidneys and ureters: Likely benign cyst in the right kidney, Hounsfield units less than 20. No follow-up recommended. Nonobstructing calculi in the superior right kidney. Bones/joints: Unremarkable. No acute fracture. Soft tissues: Unremarkable. CT/CT angio chest PE prot [id number] IMPRESSION: 1. Study is positive for multiple small pulmonary emboli within both lungs. 2. 2.2 cm left adrenal nodule. Recommend adrenal CT. (Rajesh Milian, ACR White Paper, 2017). 3. 5 mm left lung nodule. For patients at low risk (minimal or absent history of smoking and of other known risk factors), no routine follow-up is indicated. For patients at high risk (history of smoking or of other known risk factors), consider optional CT at 12 months. (fred Grady al., Fleischner Society, 2017). 4. Mild aneurysmal dilatation of the ascending thoracic aorta. COMMENTS: 1. Consistent with the [employer]'s Incidental Findings Committee white paper (J Am Valentín Radiol 2015): In patients aged 35 years and older with an incidental thyroid nodule equal to or greater than 1.[address], MRI or extrathyroidal US, further evaluation with dedicated thyroid US is recommended for patients with normal life expectancy and without comorbidities. For smaller nodules without suspicious features, no further evaluation or follow up is recommended. 2. Consistent with the [place] [employer]'s Incidental Findings Committee white paper (J Am Valentín Radiol 2018): Any incidental renal lesion less than 1.0 cm or classified as too small to characterize, or any incidental cystic renal lesion characterized as simple-appearing, is likely benign. No follow-up imaging is recommended for these lesions per consensus recommendations based on imaging criteria. Radiation Dose CTDIVOL = (mGy): DLP = 663.19 (mGy-cm) Dictated By: Alvaro Navarro Signed By: Alvaro Navarro Signed Date/Time: 08/21/191843 DD/ 43 Ultrasound right lower extremity venous Doppler: My impression: See formal report. Discharge Plan Discharge Prescriptions: No Action albuterol sulfate [Ventolin HFA] 90 mcg/actuation HFA aerosol inhaler 2 puff INHALATION Q6H PRN (Reason: Shortness Of Breath) RF: 0 cholecalciferol (vitamin D3) 2,000 unit tablet 2,000 unit PO DAILY RF: 0 allopurinol 300 mg tablet 300 mg PO BID Qty: 60 RF: 5 atorvastatin [Lipitor] 40 mg tablet 40 mg PO DAILY Qty: 30 RF: 5 fluticasone propionate 50 mcg/actuation spray,suspension 2 spray INTRANASAL DAILY Qty: 15.8 RF: 2 lisinopril 5 mg tablet 5 mg PO DAILY Qty: 60 RF: 0 potassium chloride 20 mEq tablet extended release 20 meq PO BID Qty: 90 RF: 3 nitroglycerin [Nitrostat] 0.4 mg tablet, sublingual 0.4 mg SUBLINGUAL Q5M PRN (Reason: Chest Pain) Qty: 20 RF: 3 isosorbide mononitrate 30 mg tablet extended release 24 hr 30 mg PO DAILY Qty: 30 RF: 5 insulin aspart U-100 [Novolog U-100 Insulin aspart] 100 unit/mL solution See Rx Instructions .ROUTE .COMPLEX Qty: 30 RF: 3 sucralfate 1 gram tablet See Rx Instructions .ROUTE .COMPLEX Qty: 120 RF: 0 silver sulfadiazine 1 % cream 1 applic topical BID Qty: 50 RF: 0 nystatin 100,000 unit/gram powder 1 applic TOPICAL BID Qty: 60 RF: 2 Multiple Vitamins Tablet 1 tab PO DAILY RF: 0 Lasix 80 mg Tablet 80 mg PO BID RF: 0 [place] Pill 1 cap PO BID RF: 0 cyclobenzaprine 10 mg tablet 10 mg PO TID PRN (Reason: unknown) RF: 0 prednisone 10 mg tablet See Rx Instructions .ROUTE .COMPLEX RF: 0 meclizine 25 mg tablet 25 mg PO TID PRN (Reason: Dizziness) RF: 0 diclofenac sodium [Voltaren] 1 % gel 4 gm TOPICAL QID RF: 0 pantoprazole 40 mg tablet,delayed release (DR/EC) 40 mg PO BID RF: 0 loratadine [Claritin] 10 mg tablet 10 mg PO Q24H PRN (Reason: Allergy Symptoms) RF: 0 clopidogrel [Plavix] 75 mg Tablet 75 mg PO DAILY RF: 0 doxycycline monohydrate 100 mg Tablet 100 mg PO Q12H Qty: 6 RF: 0 metoprolol tartrate 25 mg Tablet 12.5 mg PO Q12H Qty: 30 RF: 0 Levemir U-100 Insulin 100 unit/mL solution See Rx Instructions .ROUTE .COMPLEX Qty: 70 RF: 0 Coding Level of Care Code ED [employer] Supervisor for Chg Fwd Exam Comprehensive
[2019-08-21] MEDS: piperacillin-tazobactam 3.375 GM in sodium chloride 0.9% (plus) 50 ML IV (17:40)
[2019-08-21 17:43] VITALS: PULSE 75; RESP 18; O2SAT 98
--- NOTE | 2019-08-21 17:43 | PC.NURSE ---
Ultrasound at bedside
[2019-08-21 17:44] LABS: Alanine Aminotransferase 24 U/L (0-33); Alkaline Phosphatase 146 IU/L (35-105); Anion Gap 11.4 (5-19); Aspartate Amino Transferase 21 U/L (0-32); Blood Urea Nitrogen 39 mg/dL (8-23); Calcium 10.1 mg/dL (8.5-10.5); Carbon Dioxide 29 mmol/L (22-29); Chloride 95 mmol/L (98-107); Creatine Phosphokinase 31 U/L (26-192); Globulin 3.1 g/dL (1.3-4.6); Glomerular Filtration Rate 44.4 mL/min (90-130); Glucose 207 mg/dL (65-115); Osmolality Calculated 276 mOsm/kg (285-295); Potassium 4.4 mmol/L (3.5-5.1); Sodium 131 mmol/L (136-145); Total Bilirubin 1.2 mg/dL (0.15-1.2); Total Protein 6.1 g/dL (6.6-8.7)
--- NOTE | 2019-08-21 17:51 | ECG_ITS ---
[facility] Test Date: 2019-08-21 Pat Name: Yesika Sanchez Department: Room: Gender: Female Director Of Special Events: : 1950 Requested By: Joanne Zaldivar Order Number: [id number] Mariaa MD: Chelsea Brewer M.D. Measurements Intervals [place] Rate: 70 P: 50 CA: 172 QRS: -33 QRSD: 105 T: 22 QT: 408 QTc: 443 Interpretive Statements SINUS RHYTHM LEFT AXIS DEVIATION [QRS AXIS < -30] Compared to ECG 01/15/2019 12:47:48 Atrial fibrillation no longer present Electronically Signed On 08-22-2019 16:55:08 CDT by Chelsea Brewer M.D. [id number]
--- NOTE | 2019-08-21 17:51 | CTR_ITS ---
PROCEDURE INFORMATION: Exam: CT Angiography Chest With Contrast Exam date and time: 08/21/2019 6:07 PM Age: 69 years old Clinical indication: Other: Dvt present; Prior surgery; Surgery type: Gb TECHNIQUE: Imaging protocol: Computed tomographic angiography of the chest with intravenous contrast. 3D rendering: MIP and/or 3D reconstructed images were created by the technologist. Radiation optimization: All CT scans at this facility use at least one of these dose optimization techniques: automated exposure control; mA and/or kV adjustment per patient size (includes targeted exams where dose is matched to clinical indication); or iterative reconstruction. Contrast material: VISI 320; Contrast volume: 70 ml; Contrast route: INTRAVENOUS (IV); COMPARISON: CR XR chest 1V portable [id number] 08/21/2019 5:08 PM RADIATION DOSE METRICS: Total DLP (mGy-cm): 663.19 FINDINGS: Pulmonary arteries: Small filling defects within pulmonary artery branches of the right and left upper lobes, right middle lobe, and both lower lobes. Aorta: Mild aneurysmal dilatation of the ascending thoracic aorta measuring 4.7 cm. No dissection. Thyroid: 1.0 cm low-density nodule in the left thyroid lobe. No follow-up recommended. Lungs: 5 mm nodule in the left upper lobe, image 24. Pleural space: Unremarkable. No pneumothorax. No pleural effusion. Heart: Unremarkable. No cardiomegaly. No pericardial effusion. Lymph nodes: Unremarkable. No enlarged lymph nodes. Adrenals: 2.2 cm left adrenal nodule, Hounsfield units 38. Kidneys and ureters: Likely benign cyst in the right kidney, Hounsfield units less than 20. No follow-up recommended. Nonobstructing calculi in the superior right kidney. Bones/joints: Unremarkable. No acute fracture. Soft tissues: Unremarkable. CT/CT angio chest PE protcl [id number] IMPRESSION: 1. Study is positive for multiple small pulmonary emboli within both lungs. 2. 2.2 cm left adrenal nodule. Recommend adrenal CT. (Rajesh Milian, ACR White Paper, 2017). 3. 5 mm left lung nodule. For patients at low risk (minimal or absent history of smoking and of other known risk factors), no routine follow-up is indicated. For patients at high risk (history of smoking or of other known risk factors), consider optional CT at 12 months. (MacMahon, et al., Fleischner Society, 2017). 4. Mild aneurysmal dilatation of the ascending thoracic aorta. COMMENTS: 1. Consistent with the [place] [employer]'s Incidental Findings Committee white paper (J Am Valentín Radiol 2015): In patients aged 35 years and older with an incidental thyroid nodule equal to or greater than 1.[address], MRI or extrathyroidal US, further evaluation with dedicated thyroid US is recommended for patients with normal life expectancy and without comorbidities. For smaller nodules without suspicious features, no further evaluation or follow up is recommended. 2. Consistent with the [place] [employer]'s Incidental Findings Committee white paper (J Am Valentín Radiol 2018): Any incidental renal lesion less than 1.0 cm or classified as too small to characterize, or any incidental cystic renal lesion characterized as simple-appearing, is likely benign. No follow-up imaging is recommended for these lesions per consensus recommendations based on imaging criteria. Radiation Dose CTDIVOL = (mGy): DLP = 663.19 (mGy-cm)
--- NOTE | 2019-08-21 18:13 | USCV_ITS ---
Laura Yesika Age: 69 Gender: F : 1950 Exam Date: 08/21/2019 18:46 Ordering Phys: Joanne Craven DO Technologist: Lorenzo Burleson Exam Location: [facility] [place] Indication: DVT, r/o RV strain BP: 132 / 75 HR: 71 Rhythm: Sinus Technical Quality: Fair MEASUREMENTS (Male / Female) Normal Values 2D ECHO LV Diastolic Diameter PLAX 5.0 cm 4.2 - 5.9 / 3.9 - 5.3 cm LV Systolic Diameter PLAX 2.6 cm IVS Diastolic Thickness 0.8 cm 0.6 - 1.0 / 0.6 - 0.9 cm IVS Systolic Thickness 1.4 cm LVPW Diastolic Thickness 1.3 cm 0.6 - 1.0 / 0.6 - 0.9 cm LVPW Systolic Thickness 1.5 cm LVOT Diameter 2.1 cm LV Ejection Fraction 2D Teich 79.0 % LA Diameter 4.5 cm LA Width 4.1 cm LA Height 4.5 cm RA Width 3.8 cm RA Height 4.9 cm M-MODE LV Diastolic Diameter MM 5.9 cm 4.2 - 5.9 / 3.9 - 5.3 cm LV Systolic Diameter MM 3.6 cm LV Ejection Fraction MM Teich 68.1 % IVS Diastolic Thickness MM 1.1 cm 0.6 - 1.0 / 0.6 - 0.9 cm IVS Systolic Thickness MM 1.8 cm LVPW Diastolic Thickness MM 1.2 cm 0.6 - 1.0 / 0.6 - 0.9 cm LVPW Systolic Thickness MM 2.1 cm RV Diastolic Diameter MM 1.8 cm Aortic Annulus Diameter 4.1 cm LA Ao Ratio MM 1.1 MV E Point Septal Separation 1.1 cm FINDINGS Left Ventricle Normal left ventricular cavity size. Normal left ventricular systolic function. Left ventricular ejection fraction is estimated at 60-65 %. No regional wall motion abnormalities. Right Ventricle Normal right ventricular size and systolic function. Right Atrium Right atrium not well visualized. Left Atrium Normal left atrial size. Mitral Valve Thickened mitral valve. No significant mitral valve regurgitation. Aortic Valve Aortic valve not well visualized. No aortic valve regurgitation. Tricuspid Valve Tricuspid valve not well visualized. Trace tricuspid valve regurgitation. Pulmonic Valve Pulmonic valve not well visualized. Pericardium No pericardial effusion. Aorta Aorta not well visualized. CONCLUSIONS 1. This is a limited echocardiogram. 2. Normal left ventricular cavity size and systolic function. Left ventricular ejection fraction is estimated at 60-65 %. No regional wall motion abnormalities. 3. Normal right ventricular size and systolic function. 4. Trace tricuspid valve regurgitation. Chelsea Brewer MD (Electronically Signed) Final Date: 21 August 2019 19:48 S
[2019-08-21] MEDS: iodixanol 320 mg/mL 100mL Btl IV (18:26)
[2019-08-21 18:42] LABS: Troponin(5th) Baseline 57 ng/L (0-10)
[2019-08-21 18:52] LABS: NT Pro B Type Natriuretic Pept 511 pg/mL (0-125)
--- NOTE | 2019-08-21 19:51 | ECG_ITS ---
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 Measurements Intervals [place] Rate: 73 P: 47 GA: 164 QRS: -40 QRSD: 129 T: 50 QT: 401 QTc: 445 Interpretive Statements SINUS RHYTHM MARKED LEFT AXIS DEVIATION [QRS AXIS < -30] PROBABLE LATERAL MYOCARDIAL INFARCTION [35 ms Q WAVE IN I/aVL/V5/V6], OF INDETERMINATE AGE Compared to ECG 08/21/2019 19:33:19 Myocardial infarct finding now present Electronically Signed On 08-22-2019 22:44:04 CDT by Chelsea Brewer M.D. [email or web address]
[2019-08-21 21:15] VITALS: BP 92/47; O2SAT 93
--- NOTE | 2019-08-21 21:53 | P.HP_ITS ---
Providers/Chief Complaint Primary Care Provider: Shannon Earl MD Chief Complaint: leg swelling History of Present Illness Yesika Sanchez is a 69 year old lady with multiple recent admissions, as well as visits to primary care provider office, with initially wound on left lower extremity, subsequently cellulitis, and for that she was treated with a course of Keflex, subsequently developed a maculopapular morbilliform rash, with bli stering, as well as was hospitalized for urinary tract infection with ESBL E. coli which received treatment with imipenem after broad-spectrum antibiotics initially. If etiologies were considered for her rash, with SJS, TEN considered unlikely given distribution and lack of mucosal involvement. DRESS syndrome considered unlikely with blood work not consistent with this. Rash was present most likely secondary to the course of Keflex. She underwent a treatment with course of prednisone with response to this, and reports she only has about 2 tablets left currently. She returned to ER today, complaining of about 3 days of swelling and redness in the right lower extremity. Also reports more progressive fatigue. Says that her rash overall has been improving, although she has been having some peeling skin currently at the site of prior lesions, as well as has some persistent ulcerations on bilateral flanks, however, these have been healing up, especially with improvement on the right side. She does say she had run out of Silvadene at home. She denies any cough or hemoptysis. Denies any chest pain or pressure currently. She is not particular short of breath. In ER she is noted with intermittently soft blood pressure, down as low. As 85/50. She reports that she had taken all of her blood pressure medications today. Blood pressure at the time of my visit 115/56. She reports that recently she has not been very mobile, and in fact yesterday had slept through most of the day. Oxygenation currently is 93% on room air. CTA chest with multiple small pulmonary emboli in both lungs. Incidentally noted 2.2 cm left adrenal nodule. Incidentally noted 5 mm left lung nodule. Incidentally noted mild aneurysmal dilation of ascending thoracic aorta. She overall is not a very good historian, unfortunately takes her a while to recall details from the past medical history, and she easily gets off [place] on tangents. 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 Attempted to reach her on the phone number listed, however, there was no answer. Review of Systems Const: Reports: fatigue; Denies: fever(s), chills, body aches or malaise Eyes: Denies: change in vision or eye redness ENMT: Denies: throat pain, oral sores or ear or mastoid pain Card: Reports: edema; Denies: chest pain, pre-syncope or dyspnea on exertion Resp: Denies: dyspnea, productive cough, change in phlegm color or hemoptysis GI: Denies: abdominal pain, nausea, vomiting, diarrhea, constipation, hematochezia or melena : Denies: flank pain, urinary frequency or hematuria Musc: Reports: extremity swelling (Right lower leg severe swelling, erythema); Denies: back pain, joint swelling or joint redness Skin/Breast: Reports: rash and sores (Healing); Denies: new lesions Neuro: Denies: headache(s), numbness in extremities, weakness in extremities, dizziness, confusion or seizure-like activity Endo: Denies: polyuria or polydipsia Steven/Lymph: Denies: easy bleeding or purpura All/Imm: Denies: urticaria, throat swelling or tongue swelling Medications/Allergies Home Medications Medication Instructions Recorded Confirmed Last Taken Type albuterol sulfate 90 mcg/actuation 2 puff INHALATION Q6H PRN 02/08/19 08/21/19 Unknown History aerosol inhaler cholecalciferol (vitamin D3) 50 2,000 unit PO DAILY tab 04/02/19 08/21/19 08/04/19 History mcg (2,000 unit) tablet allopurinol 300 mg tablet 300 mg PO BID #60 tab 04/25/19 08/21/19 08/21/19 Rx atorvastatin 40 mg tablet 40 mg PO DAILY #30 tab 04/25/19 08/21/19 08/04/19 Rx fluticasone propionate 50 2 spray INTRANASAL DAILY #15.8 ml 05/21/19 08/21/19 08/21/19 Rx mcg/actuation nasal spray,suspension lisinopril 5 mg tablet 5 mg PO DAILY #60 tab 05/21/19 08/21/19 08/21/19 Rx diclofenac sodium [Voltaren] 4 gm TOPICAL QID 06/05/19 08/21/19 08/21/19 History nitroglycerin 0.4 mg sublingual 0.4 mg SUBLINGUAL Q5M PRN #20 tab 06/15/19 08/21/19 Unknown Rx tablet potassium chloride 20 mEq 20 meq PO BID #90 tab 06/15/19 08/21/19 08/04/19 Rx tablet,extended release isosorbide mononitrate 30 mg 30 mg PO DAILY #30 tab 07/05/19 08/21/19 08/21/19 Rx tablet,extended release 24 hr insulin aspart U-100 100 unit/mL See Rx Instructions .ROUTE 07/10/19 08/21/19 08/21/19 08:00 Rx subcutaneous solution .COMPLEX #30 ml 8 units loratadine [Claritin] 10 mg PO Q24H PRN 07/25/19 08/21/19 08/21/19 History pantoprazole 40 mg PO BID 07/25/19 08/21/19 07/25/19 History clopidogrel [Plavix] 75 mg PO DAILY 08/06/19 08/21/19 08/21/19 History Levemir U-100 Insulin See Rx Instructions .ROUTE 08/13/19 08/21/19 08/21/19 Rx .COMPLEX #70 milliliter doxycycline monohydrate 100 mg PO Q12H #6 tab 08/13/19 08/21/19 08/19/19 Rx metoprolol tartrate 12.5 mg PO Q12H #30 tab 08/13/19 08/21/19 Unknown Rx sucralfate 1 gram tablet See Rx Instructions .ROUTE 08/17/19 08/21/19 Unknown Rx .COMPLEX #120 tab Wade Pill 1 cap PO BID 08/21/19 08/21/19 Unknown History cyclobenzaprine 10 mg PO TID PRN 08/21/19 08/21/19 Unknown History furosemide [Lasix] 80 mg PO BID 08/21/19 08/21/19 08/21/19 History meclizine 25 mg PO TID PRN 08/21/19 08/21/19 08/21/19 History multivitamin [Multiple Vitamins] 1 tab PO DAILY 08/21/19 08/21/19 Unknown History nystatin 100,000 unit/gram topical 1 applic TOPICAL BID #60 gm 08/21/19 08/21/19 Unknown Rx powder prednisone See Rx Instructions .ROUTE .COMPLEX 08/21/19 08/21/19 08/21/19 History silver sulfadiazine 1 % topical 1 applic TOPICAL BID #50 g 08/21/19 08/21/19 Unknown Rx cream Allergies Allergy/AdvReac Type Severity Reaction Status Date / Time bupropion [From Wellbutrin] Allergy Unknown Unknown Verified 08/21/19 17:47 ciprofloxacin Allergy Unknown Unknown Verified 08/21/19 17:47 fluoxetine [From Prozac] Allergy Unknown Unknown Verified 08/21/19 17:47 gabapentin Allergy Unknown Unknown Verified 08/21/19 17:47 sulindac [From Clinoril] Allergy Unknown unkown Verified 08/21/19 17:47 PFSH Acute PFSH: Medical History (Updated 08/21/19 @ 22:19 by Jairo Fuentes MD) Anxiety ASHD (arteriosclerotic heart disease) Back pain CHF (congestive heart failure) CKD (chronic kidney disease) Coronary artery disease DDD (degenerative disc disease) Decreased hearing of both ears Diabetes Diabetic polyneuropathy Duodenal ulcer Dyslipidemia History of GI bleed Hypertension Incarcerated incisional hernia Morbid obesity Morbilliform rash PUD (peptic ulcer disease) Vitamin B deficiency Vitamin D deficiency Surgical History H/O esophagogastroduodenoscopy (~06/05/19) H/O hernia repair History of coronary artery stent placement Cardiac cath on 12/13/2016 with stent placement to LAD Hx of section 3 Hx of cholecystectomy Hx of tonsillectomy S/P appendectomy S/P plastic surgery 2019, panniculectomy Family History Mother CAD (coronary artery disease) Other Hypertension Social History Smoking and tobacco status: former smoker Quit status (tobacco): has quit using tobacco Former quit date comment: 2.5 PPD x 40 yrs Alcohol intake: unknown Lives independently: Yes Household members: spouse Housing: House Marital status: Pets and animals: Yes History of recent travel: No Current gender identity: Female Female Reproductive History: Date of last menstrual period: 06/05/19 Vitals/I&O/Wt Last Vital Signs Temp 98.2 F 08/21/19 16:07 Pulse 75 08/21/19 17:43 Resp 18 08/21/19 17:43 BP 92/47 08/21/19 21:15 Pulse Ox 93 08/21/19 21:15 Weight last 48 hrs Weight 154.221 kg Physical Exam Const: COMMON NORMALS: no acute distress and patient oriented x3 GENERAL APPEARANCE: anxious NUTRITIONAL APPEARANCE: obese morbidly obese HENMT: COMMON NORMALS: oropharynx normal Neck/C-Spine: COMMON NORMALS: no JVD Resp: COMMON NORMALS: normal respiratory effort and clear to auscultation bilaterally AUSCULTATION: clear to auscultation bilaterally Cardio: COMMON NORMALS: no JVD, regular rhythm, S1 normal heart sound present, S2 normal heart sound present and No murmurs present (Cardio) RHYTHM: regular rhythm HEART SOUNDS: S1 normal heart sound present and S2 normal heart sound present GI: COMMON NORMALS: Normal to inspection, nondistended, normoactive bowel sounds present, Soft to palpation and non-tender PALPATION: Yes Soft to palpation Extremity: COMMON NORMALS: no joint enlargement GENERAL: Yes edema (right l ower extremity swelling, circumferential erythema) Neuro: COMMON NORMALS: patient oriented x3 and moves all extremities Skin: COMMON NORMALS: no rashes or lesions noted GENERAL SKIN EXAM: no rashes or lesions noted Data : 08/21/19 16:35 08/21/19 16:35 Micro: Microbiology 08/21/19 16:40 Blood Culture - Preliminary Blood SPECIMEN COLLECTED 08/21/19 16:35 Blood Culture - Preliminary Blood SPECIMEN COLLECTED A&P Assessment and plan (1) Pulmonary emboli: Multiple bilateral pulmonary emboli. She reports recent fatigue, although currently saturating in low to mid 90s on room air. Denies significant shortness of breath at this time. Denies cough or hemoptysis. Of note with recent history of GI bleeding, PAD back in June. At that time Plavix had been held, but she says she has since been back on Plavix. Denies taking any aspirin. Hemoglobin currently is 8.5, with normocytic anemia. She does report symptoms of pica at home. Denies bloody stools or dark black stools. Platelet level is soft at 114,000. Blood pressure has been soft, as low as 85/50. During my visit 115/56. Discussed with her concern regarding low blood pressures with bilateral PE. Discussed with her in cases of hemodynamic instability with PE thrombolytic therapy may be considered, however, a number of complicating circumstances are present in her case including recent GI bleeding, as well as current anemia, mil d thrombocytopenia. She states this time not a safe candidate for any thrombolyzes procedure. She v erbalized understanding and agreement with staying here and initiation of anticoagulation with heparin drip (without bolus per critical care) which may be discontinued if there is any bleeding. Discussed with her also if intolerance to anticoagulation placement of IVC filter may be necessary, and Dr. Ball would be available if this were at necessity as ascertained by ER physician. At this time continue hemodynamic monitoring. Blood pressure soft is mostly suspected secondary to antihypertensives. With recent ESBL urinary tract infection, will also obtain urine sample. Cannot exclude possibility of cellulitis. Overall we will continue on antibiotics in case there is component of sepsis, septic shock. Monitor oxygenation. Status: Acute (2) DVT (deep venous thrombosis): Reported on preliminary result of duplex ultrasound right lower extremity. Follow up final study. As above. As cannot exclude cellulitis, will also continue antibiotic with vancomycin, Primaxin. Status: Acute (3) History of GI bleed: In June, with noted PUD. Twice daily PPI. Hold any NSAIDs, including topical. Monitor hemoglobin closely while on heparin drip. Status: Acute (4) PUD (peptic ulcer disease): Continue PPI, sucralfate. She denies any bloody or dark stools. Status: Acute (5) Anemia: Known anemia, GI bleeding in June, currently normocytic, 8.5 which appears to be similar to results in the beginning of August. She denies any bloody or dark stools. At this time continue PPI, monitor hemoglobin. Continue sucralfate. Check iron studies. Hemoccult. Status: Acute (6) Acute kidney injury: Mild acute kidney injury, creatinine 1.2. Baseline appears to be around 1. Hold topical NSAID. Hold lisinopril. Hold allopurinol. Possibly prerenal component as she has been taking diuretics. Avoid dehydration. Status: Acute (7) Troponin level elevated: This appears to be mismatch and demand supply secondary to bilateral PE. There is no acute rise in level. No chest pain. Status: Acute (8) Alkaline phosphatase elevation: Isolated alkaline phosphatase elevation, which appears to be chronic. Will follow level. Follow-up with outpatient provider. Status: Acute (9) Hypotension: Blood pressure soft, as low as 85/50. Suspect most likely this is related to her antihypertensives. Cannot entirely exclude that she does not have additionally infection, possibly cellulitis, as well as recently with ESBL UTI. At this time blood pressure is better 115/56. Will monitor. Hold diuretics for now in addition to antihypertensives. Status: Acute Additional A&P Information Recent ESBL UTI: Completed course of imipenem. Will obtain UA. Denies any urinary symptoms. Incidentally noted 2.2 cm left adrenal nodule: Please discuss with her when she is less acutely ill, may need additional follow-up evaluation of this. Incidentally noted 5 mm left lung nodule: Please discuss with her when she is less acutely ill, may need additional follow-up evaluation of this. Incidentally noted mild aneurysmal dilation of ascending thoracic aorta: Please discuss with her when she is less acutely ill, may need additional follow-up evaluation of this. Diabetes: Continue insulin. Consistent carbohydrate diet. Other chronic medical problems. Attestations Medical Necessity Statement*: Admission of over 2 midnights continued for assessment and management of bilateral PE, requiring anticoagulation with history of recent GI bleeding, soft blood pressures, recent infections and other complicating factors. Coding Level of Care Code Acute Construction Project Coordinator for g Fwd Exam Comprehensive Diagnoses Pulmonary emboli I26.99 DVT (deep venous thrombosis) I82.409 History of GI bleed Z87.19 PUD (peptic ulcer disease) K27.9 Anemia D64.9 Acute kidney injury N17.9 Troponin level elevated R79.89 Alkaline phosphatase elevation R74.8 Hypotension I95.9
[2019-08-21 22:42] LABS: Platelet Count 102 10^3/cmm (130-400)
[2019-08-21 23:06] VITALS: BP 99/58; PULSE 61; O2SAT 99
[2019-08-22] VITALS (9 sets, daily range): BP systolic 90–123; BP diastolic 44–73; PULSE 67–94; RESP 14–22; TEMP 36.4–36.8; O2SAT 90–98; BMI 39.4
[2019-08-22 00:36] LABS: Troponin 5 6HR 40.32 ng/L (0-10)
--- NOTE | 2019-08-22 01:15 | PC.NURSE ---
Dr. Gunter informed of patients low pressure and clarified not to start levophed. Dr. Posey also said not to start the protonix drip and discontinue the 12.5 mg of metoprolol. Orders to start heparin drip and not give a loading dose. Read back verbal orders. Will continue to monitor.
[2019-08-22 01:20] LABS: Ferritin 186 ng/mL (15-150); Iron 18 ug/dL (37-145); Percent Saturation 7.4 % (20-50); Total Iron Binding Capacity 242 mcg/dl; Unsaturated Iron Binding 224 ug/dL (112-347)
[2019-08-22] MEDS: heparin drip 25,000 UNIT/500 ML PREMIX 34 UNIT IV (01:53)
--- NOTE | 2019-08-22 02:44 | PC.NURSE ---
Patient unable to urinate upon arriving to the floor. Patient requested a catheter due to low blood pressure and not being able to use a bed tan. Dr. Fuentes gave the order to place the alvarado now read back verbal order.
[2019-08-22 04:15] LABS: Basophils % 0.2 %; Eosinophils # 0.1 10^3/uL (0.0-0.8); Hematocrit 27.4 % (37.0-47.0); Hemoglobin 8.3 g/dL (11.5-15.3); Lymphocytes % 10.4 %; Mean Corpuscular HGB Conc 30.3 g/dL (30.0-36.0); Mean Corpuscular Hemoglobin 27.7 pg (28.0-34.0); Mean Corpuscular Volume 91.3 fL (81-99); Mean Platelet Volume 12.4 fL (7.4-10.4); Monocytes # 0.6 10^3/uL (0.2-0.9); Monocytes % 5.7 %; Neutrophils # 7.95 10^3/uL (1.8-7.7); Neutrophils % 82.3 %; Nucleated Red Blood Cells % 0 %; Platelet Count 77 10^3/cmm (130-400); Red Cell Distribution Width 18.9 % (12.1-15.1); White Blood Count 9.7 10^3/uL (4.0-10.0)
[2019-08-22 04:19] LABS: Bilirubin Urine Neg (NEGATIVE); Blood Urine Neg (Negative); Glucose Urine UA Norm (Normal); Ketones Urine Negative (Negative); Leukocyte Esterase Urine Negative (Negative); Nitrate Urine Negative (Negative); Protein Urine Neg (Negative); Urine Appearance Clear (CLEAR); Urine Color Yellow (Yellow); Urobilinogen Urine Norm (Negative); pH Urine 5 (5-7)
--- NOTE | 2019-08-22 05:12 | PC.NURSE ---
End of shift: Patient updated on vistor policy esperanza will be her visitor and informed about password. Patient has had a uneventful shift. Khan catheter placed for accurate I/O's. Patient denies pain. Heparin drip is infusing. Will continue to monitor.
[2019-08-22 05:31] LABS: Slide Review Slide Review Perform
[2019-08-22 06:02] LABS: Alanine Aminotransferase 24 U/L (0-33); Albumin Level 2.8 g/dL (3.5-5.2); Alkaline Phosphatase 149 IU/L (35-105); Anion Gap 11.9 (5-19); Aspartate Amino Transferase 25 U/L (0-32); Blood Urea Nitrogen 39 mg/dL (8-23); Calcium 9.5 mg/dL (8.5-10.5); Carbon Dioxide 28 mmol/L (22-29); Chloride 96 mmol/L (98-107); Globulin 2.8 g/dL (1.3-4.6); Glomerular Filtration Rate 54.8 mL/min (90-130); Glucose 267 mg/dL (65-115); Osmolality Calculated 281 mOsm/kg (285-295); Potassium 3.9 mmol/L (3.5-5.1); Sodium 132 mmol/L (136-145); Total Protein 5.6 g/dL (6.6-8.7)
[2019-08-22] MEDS: sucralfate 1 gm Tablet PO ×4 (06:24→21:09)
[2019-08-22] MEDS: clopidogrel 75 mg Tablet PO (08:22)
[2019-08-22] MEDS: atorvastatin 40 mg Tablet PO (08:22)
[2019-08-22] MEDS: pantoprazole DR 40 mg Tablet PO ×2 (08:22→17:44)
[2019-08-22 08:55] LABS: Partial Thromboplastin Time 95.2 SECONDS (23.9-36.7)
--- NOTE | 2019-08-22 09:40 | PC.CHAP ---
Pastoral Care Encounter/Spiritual Assessment Type of Contact [] Declined junior systems analyst visit [] Patient/Family/Request visit [] Outpatient visit [] Follow-up visit [] Physician referral [] Code/Alert [x] Routine visit [] Staff referral [] Actively dying [] Patient sleeping [] Family support [] [] Out of room [] Palliative care [] [] Receiving care in room [] Pre-surgical visit [] Trauma [] Long length of stay [] ICU visit [] Other: Relational/Emotional Strength [] Patient feels connected with others/family/visitors/staff [] Distress [] Loneliness/isolation [] Abandonment Spirituality of Patient [] Person of Rocio [] Attends Quaker of their Rocio [] Believes in Prayer [] Reads Bible or Jainism materials [] There are Spiritual issues to be addressed Hall Clerk Interventions [x] Prayer [x] Active listening [x] Non-anxious presence [x] Spiritual/emotional support [] Crisis/trauma care [] Spiritual counseling [] Bereavement support [] Provided bereavement packet [] Provided Bible/devotional materials [] Provided toy/stuffed animal, coloring book to patient or family member [] Provided Communion [] Anointing/[place] [] Salvation [x] Completed spiritual assessment [] Other: Impact on Illness or Injury [] Angry [] Fearful [] Anxious [] Often cries [] Exhaustion [] Unable to work [] Unable to attend pentecostalism [] Unable to walk/stand [] Unable to read [] Unable to drive [] Unable to eat/drink [] Unable to sleep [] Unable to be with family [] Patient intubated [] Other: Summary Hall Clerk announced entrance- staff didnt hear.. patient startled.. Hall Clerk, returned to patients room after staff had completed visit and apologized to patient and prayed... Time spent with patient 15 min
[2019-08-22 10:55] LABS: Procalcitonin 0.46 ng/mL (0-0.5)
[2019-08-22] MEDS: fluticasone nasal spray 16gm Btl 2 SPRAY INTRANASAL (11:51)
[2019-08-22 11:52] LABS: Glucose Point of Care 339 mg/dL (70-110)
[2019-08-22] MEDS: silver sulfadiazine cream 1% 50 gm 1 APPLIC TOPICAL ×2 (11:52→17:52)
[2019-08-22] MEDS: predniSONE 10 mg Tablet PO (11:52)
--- NOTE | 2019-08-22 14:33 | P.PN_ITS ---
Subjective Subjective: Interval history: Admitted overnight. H&P and labs noted. On examination patient is sitting comfortably in bed. Denies of having any nausea, vomiting, abdominal pain, difficulty in breathing, palpitations. Patient's rash is looking a lot better than on the day of previous discharge. She states the rash is not itching anymore. Denies of any fever, flulike symptoms. States at home when the home health nurse came in she thought the nurse has been lying to her. She states she would not want any more home health going forward. Vitals/I&O/Wt Last Vital Signs Temp 98.1 F 08/22/19 11:43 Pulse 84 08/22/19 11:43 Resp 16 08/22/19 11:43 BP 100/44 08/22/19 11:43 Pulse Ox 94 08/22/19 11:43 08/21/19 08/22/19 08/22/19 22:59 06:59 14:59 Intake Total 700 / 700 950 / 950 Output Total 1200 / 1200 Balance -500 / -500 950 / 950 Weight last 48 hrs Weight 121.308 kg Weight 122.016 kg Weight 154.221 kg Physical Exam Narrative: EXAM NARRATIVE: General: No acute distress, AO x3 morbidly obese HEENT: PERRLA, pupils bilaterally equal and reactive Chest: Normal vesicular breath sounds, no added sounds, equal good air entry bilaterally CVS: S1-S2 regular, no murmurs, no tachycardia, no gallops, no rubs Abdomen: Soft, nontender, no organomegaly, bowel sounds present Neuro: No focal deficits, no facial deformity, AO x3, power 5/5 in all limbs Urinary Catheter Management^: Khan: Cath Placed During This Visit: yes Reason for Continuing Indwelling Catheter: Acute Urinary Retention or Obstruction Urinary Catheter Date of Insertion: 08/22/19 Urinary Catheter Time of Insertion: 04:00 Data : 08/22/19 03:38 08/22/19 05:30 Micro: Microbiology 08/21/19 16:40 Blood Culture - Preliminary Blood SPECIMEN COLLECTED 08/21/19 16:35 Blood Culture - Preliminary Blood SPECIMEN COLLECTED A&P Assessment and plan (1) Pulmonary emboli: Status: Acute (2) DVT (deep venous thrombosis): Status: Acute (3) History of GI bleed: Status: Acute (4) PUD (peptic ulcer disease): Status: Acute (5) Anemia: Status: Acute (6) Acute kidney injury: Status: Acute (7) Troponin level elevated: Status: Acute (8) Alkaline phosphatase elevation: Status: Acute (9) Hypotension: Status: Acute Additional A&P Information Pulmonary emboli/DVT: Patient was recently in the hospital till August when she had a long hospital course because of septic shock and then multiple rash all over the body. At that time she did not have therapeutic DVT prophylaxis because of history of recent GI bleed. Though she was on SCDs. Patient presented last night and was found to have multiple pulmonary emboli. Patient states she was walking at home but a little less than usual. Patient is saturating more than 92% on room air. Denies of feeling short of breath. Echocardiogram negative for any right-sided failure. Patient was started on heparin drip last night. Hemoglobin has remained stable. If hemoglobin is remained stable tomorrow we will switch over to Eliquis. Oxygen supplementation to keep saturation over 92%. If patient's hemoglobin started dropping we will consult Dr. Ball for possible IVC filter placement as lower limb Doppler consistent with extensive DVT on the right side. Right leg cellulitis: Warm to touch, erythema present. Most likely cellulitis over swelling due to DVT. Check MRSA swab. Patient recently had ESBL E. coli UTI. Primaxin was started overnight. We will continue for now and will add vancomycin. Will DC vancomycin once MRSA swab is negative. If patient remains afebrile for next 48 hours we will discontinue the antibiotics as patient's white count has remained stable. We will start patient on nystatin powder and clotrimazole ointment for possible fungal superinfection. Anemia: Recent scope in June 2019 showed a large duodenal ulcer which was nonbleeding on EGD. Iron panel appreciated. Continue with Carafate, oral Protonix 40 twice daily. We will start patient on IV iron 200 mg of 5 doses to finish a 1 g course. Zofran as needed. Continue to monitor CBC daily. KEN: Baseline creatinine 1. Creatinine back to baseline. Continue holding lisinopril. We will monitor BMP daily. Hypertension: At home patient takes Imdur 30 mg, lisinopril 5 mg, metoprolol 12.5 mg twice daily. Blood pressure softer since admission but improving. Goal blood pressure less than 140/90 mmHg. We will continue with metoprolol 12.5 twice daily. Will hold other antihypertensives for now. Do not suspect sepsis as patient does not have any tachycardia, fever, leukocytosis. Echocardiogram done on this admission shows an EF of 6065% with no regional wall motion abnormality trace TR, normal right ventricular size and systolic function. Type 2 diabetes mellitus: On last admission patient had difficult to control blood sugars. Start patient on Levemir 15 units at bedtime. Continue insulin sliding scale at high-dose protocol. Recent maculopapular rash: It was thought to be drug reaction from Keflex. Improved drastically. Patient is on steroid taper. She needs 2 doses more of prednisone 10 mg. We will continue same. Recent ESBL UTI: Completed course of imipenem. UA negative for UTI. Incidentally noted 2.2 cm left adrenal nodule: Please discuss with her when she is less acutely ill, may need additional follow-up evaluation of this. Incidentally noted 5 mm left lung nodule: Patient will need out patient follow- up with them yearly CT scan. Incidentally noted mild aneurysmal dilation of ascending thoracic aorta: Please discuss with her when she is less acutely ill, may need additional follow-up evaluation of this. Other chronic medical problems. Attestations Medical Necessity Statement*: Pulmonary embolism Time Spent in Patient Care: Greater than 35 minutes (>than 50% of time spent in counselling and/or direct pt care on unit) . Coding Level of Care Code [facility] Pulmonary emboli I26.99 DVT (deep venous thrombosis) I82.409 History of GI bleed Z87.19 PUD (peptic ulcer disease) K27.9 Anemia D64.9 Acute kidney injury N17.9 Troponin level elevated R79.89 Alkaline phosphatase elevation R74.8 Hypotension I95.9
[2019-08-22] MEDS: cyclobenzaprine 10 mg Tablet PO ×2 (15:14→21:09)
[2019-08-22] MEDS: alum-mag-hydroxide-sime 30 mL UDC PO (15:14)
[2019-08-22 15:55] LABS: Glucose Point of Care 311 mg/dL (70-110)
[2019-08-22 16:02] LABS: Partial Thromboplastin Time 80.3 SECONDS (23.9-36.7)
[2019-08-22] MEDS: nystatin powder 15 gm Btl 1 APPLIC TOPICAL (17:44)
[2019-08-22] MEDS: heparin drip 25,000 UNIT/500 ML PREMIX 25 UNIT IV (17:44)
[2019-08-22] MEDS: clotrimazole 1% cream 30 gm 1 APPLIC TOPICAL (17:53)
[2019-08-22] MEDS: meclizine 25 mg tablet PO (18:18)
--- NOTE | 2019-08-22 20:29 | PC.NURSE ---
Rounding: Patient resting in bed. Denies pain at this time. Patient alert and oriented. Patient alvarado is out. Heparin drip infusing. Will continue to monitor.
[2019-08-22 21:06] LABS: Glucose Point of Care 394 mg/dL (70-110)
[2019-08-22] MEDS: insulin glargine 100 units/1 mL 50 UNIT SUBCUT (21:10)
[2019-08-22 23:03] LABS: Partial Thromboplastin Time 67.1 SECONDS (23.9-36.7)
[2019-08-23] VITALS (8 sets, daily range): BP systolic 100–120; BP diastolic 54–72; PULSE 71–94; RESP 14–24; TEMP 36.5–36.8; O2SAT 93–99
--- NOTE | 2019-08-23 05:13 | PC.NURSE ---
End of shift: Patient has rested well this shift. Voided per bedside commode. Patient remains. Alert and oriented. Patient has no complaints of pain. Will continue to monitor.
[2019-08-23] MEDS: meclizine 25 mg tablet PO ×3 (05:34→18:11)
[2019-08-23] MEDS: sucralfate 1 gm Tablet PO ×4 (05:34→20:18)
[2019-08-23 06:30] LABS: Glucose Point of Care 291 mg/dL (70-110)
[2019-08-23 07:10] LABS: Partial Thromboplastin Time 39.4 SECONDS (23.9-36.7)
[2019-08-23 07:23] LABS: Basophils % 0.3 %; Eosinophils # 0.1 10^3/uL (0.0-0.8); Eosinophils % 2.2 %; Hematocrit 27.7 % (37.0-47.0); Hemoglobin 8.4 g/dL (11.5-15.3); Lymphocytes # 0.7 10^3/uL (0.8-4.8); Lymphocytes % 10.5 %; Mean Corpuscular HGB Conc 30.3 g/dL (30.0-36.0); Mean Corpuscular Hemoglobin 28.3 pg (28.0-34.0); Mean Corpuscular Volume 93.3 fL (81-99); Mean Platelet Volume 11.2 fL (7.4-10.4); Monocytes # 0.3 10^3/uL (0.2-0.9); Monocytes % 4.5 %; Neutrophils # 5.23 10^3/uL (1.8-7.7); Nucleated Red Blood Cells % 0 %; Platelet Count 75 10^3/cmm (130-400); Red Blood Count 2.97 10^6/uL (4.1-5.3); White Blood Count 6.4 10^3/uL (4.0-10.0)
[2019-08-23] MEDS: nystatin powder 15 gm Btl 1 APPLIC TOPICAL ×2 (08:58→18:13)
[2019-08-23] MEDS: silver sulfadiazine cream 1% 50 gm 1 APPLIC TOPICAL ×2 (08:58→18:10)
[2019-08-23] MEDS: clotrimazole 1% cream 30 gm 1 APPLIC TOPICAL ×2 (08:58→18:13)
[2019-08-23] MEDS: fluticasone nasal spray 16gm Btl 2 SPRAY INTRANASAL (08:58)
[2019-08-23] MEDS: predniSONE 10 mg Tablet PO (08:59)
[2019-08-23] MEDS: pantoprazole DR 40 mg Tablet PO ×2 (08:59→18:06)
[2019-08-23] MEDS: atorvastatin 40 mg Tablet PO (08:59)
[2019-08-23] MEDS: clopidogrel 75 mg Tablet PO (08:59)
--- NOTE | 2019-08-23 10:35 | P.PN_ITS ---
Subjective Subjective: Interval history: No acute events overnight. Patient is feel comfortable. Denies having nausea, vomiting, headache, dizziness. Patient's hemodynamics have remained stable. Vitals/I&O/Wt Last Vital Signs Temp 97.7 F 08/23/19 08:00 Pulse 90 08/23/19 08:00 Resp 18 08/23/19 08:00 BP 112/72 08/23/19 08:00 Pulse Ox 97 08/23/19 08:00 08/22/19 08/23/19 08/23/19 22:59 06:59 14:59 Intake Total 1340.000 / 2390.000 200 / 2590.000 Output Total 1000 / 1000 600 / 1600 Balance 340 / 1390.000 -400 / 990.000 Weight last 48 hrs Weight 127.278 kg Weight 121.308 kg Weight 122.016 kg Weight 154.221 kg Physical Exam Narrative: EXAM NARRATIVE: General: No acute distress, AO x3 morbidly obese HEENT: PERRLA, pupils bilaterally equal and reactive Chest: Normal vesicular breath sounds, no added sounds, equal good air entry bilaterally CVS: S1-S2 regular, no murmurs, no tachycardia, no gallops, no rubs Abdomen: Soft, nontender, no organomegaly, bowel sounds present Neuro: No focal deficits, no facial deformity, AO x3, power 5/5 in all limbs Urinary Catheter Management^: Khan: Cath Placed During This Visit: yes Reason for Continuing Indwelling Catheter: Acute Urinary Retention or Obstruction Urinary Catheter Date of Insertion: 08/22/19 Urinary Catheter Time of Insertion: 04:00 Data : 08/23/19 05:46 08/23/19 14:52 Micro: Microbiology 08/21/19 16:40 Blood Culture - Preliminary Blood NEGATIVE TO DATE 08/21/19 16:35 Blood Culture - Preliminary Blood NEGATIVE TO DATE A&P Assessment and plan (1) Pulmonary emboli: Status: Acute (2) DVT (deep venous thrombosis): Reported on preliminary result of duplex ultrasound right lower extremity. Follow up final study. As above. As cannot exclude cellulitis, will also continue antibiotic with vancomycin, Primaxin. Status: Acute (3) History of GI bleed: In June, with noted PUD. Twice daily PPI. Hold any NSAIDs, including topical. Monitor hemoglobin closely while on heparin drip. Status: Acute (4) PUD (peptic ulcer disease): Continue PPI, sucralfate. She denies any bloody or dark stools. Status: Acute (5) Anemia: Status: Acute (6) Acute kidney injury: Mild acute kidney injury, creatinine 1.2. Baseline appears to be around 1. Hold topical NSAID. Hold lisinopril. Hold allopurinol. Possibly prerenal component as she has been taking diuretics. Avoid dehydration. Status: Acute (7) Troponin level elevated: This appears to be mismatch and demand supply secondary to bilateral PE. There is no acute rise in level. No chest pain. Status: Acute (8) Alkaline phosphatase elevation: Isolated alkaline phosphatase elevation, which appears to be chronic. Will follow level. Follow-up with outpatient provider. Status: Acute (9) Hypotension: Status: Acute Additional A&P Information Pulmonary emboli/DVT: Patient was recently in the hospital till August when she had a long hospital course because of septic shock and then multiple rash all over the body. At that time she did not have therapeutic DVT prophylaxis because of history of recent GI bleed. Though she was on SCDs. Patient presented last night and was found to have multiple pulmonary emboli. Patient states she was walking at home but a little less than usual. Patient is saturating more than 92% on room air. Denies of feeling short of breath. Echocardiogram negative for any right-sided failure. Switch over to Eliquis. 10 mg twice daily for 7 days to start in the evening. Oxygen supplementation to keep saturation over 92%. If patient's hemoglobin started dropping we will consult Dr. Ball for possible IVC filter placement as lower limb Doppler consistent with extensive DVT on the right side. Right leg cellulitis: Warm to touch, erythema present. Most likely cellulitis over swelling due to DVT. Check MRSA swab. Patient has remained afebrile, leukocytosis is not clear. Stop antibiotics today and monitor for next 24 hours. Continue with nystatin powder and clotrimazole ointment for possible fungal superinfection. Hypertension: At home patient takes Imdur 30 mg, lisinopril 5 mg, metoprolol 12.5 mg twice daily. Goal blood pressure less than 140/90 mmHg. We will continue with metoprolol 12.5 twice daily. Will hold other antihypertensives for now. Do not suspect sepsis as patient does not have any tachycardia, fever, leukocytosis. Echocardiogram done on this admission shows an EF of 60-65% with no regional wall motion abnormality trace TR, normal right ventricular size and systolic function. Patient has recently been on steroids because of the rash. Will check cosyntropin stimulation test to rule out adrenal insufficiency. Type 2 diabetes mellitus: On last admission patient had difficult to control blood sugars. Continue with Levemir 15 units at bedtime Continue insulin sliding scale at high-dose protocol. Anemia: Recent scope in June 2019 showed a large duodenal ulcer which was nonble eding on EGD. Iron panel appreciated. Continue with Carafate, oral Protonix 40 twice daily. IV iron 200 mg of 5 doses to finish a 1 g course. Day 02/11 today. Zofran as needed. Continue to monitor CBC daily. KEN: Baseline creatinine 1. Creatinine back to baseline. Continue holding lisinopril. We will monitor BMP daily. Recent maculopapular rash: It was thought to be drug reaction from Keflex. Improved drastically. Patient is on steroid taper. Last dose of prednisone 10 mg today. Recent ESBL UTI: Completed course of imipenem. UA negative for UTI. Incidentally noted 2.2 cm left adrenal nodule: Please discuss with her when she is less acutely ill, may need additional follow-up evaluation of this. Incidentally noted 5 mm left lung nodule: Patient will need out patient follow- up with them yearly CT scan. Incidentally noted mild aneurysmal dilation of ascending thoracic aorta: Please discuss with her when she is less acutely ill, may need additional follow-up evaluation of this. Other chronic medical problems. Full code. Carb consistent diet. Eliquis will also help with DVT prophylaxis. Attestations Medical Necessity Statement*: Pulmonary emboli, soft blood pressures, type 2 diabetes mellitus, anemia Time Spent in Patient Care: Greater than 35 minutes (>than 50% of time spent in counselling and/or direct pt care on unit) . Coding Level of Care Code Acute [employer] Project Manager for [facility] Fwd Diagnoses Pulmonary emboli I26.99 DVT (deep venous thrombosis) I82.409 History of GI bleed Z87.19 PUD (peptic ulcer disease) K27.9 Anemia D64.9 Acute kidney injury N17.9 Troponin level elevated R79.89 Alkaline phosphatase elevation R74.8 Hypotension I95.9
[2019-08-23 11:32] LABS: Glucose Point of Care 263 mg/dL (70-110)
[2019-08-23] MEDS: cyclobenzaprine 10 mg Tablet PO (12:11)
[2019-08-23 15:15] LABS: Alanine Aminotransferase 17 U/L (0-33); Albumin Level 2.5 g/dL (3.5-5.2); Alkaline Phosphatase 159 IU/L (35-105); Anion Gap 11.3 (5-19); Aspartate Amino Transferase 14 U/L (0-32); Blood Urea Nitrogen 32 mg/dL (8-23); Calcium 9.3 mg/dL (8.5-10.5); Carbon Dioxide 27 mmol/L (22-29); Chloride 99 mmol/L (98-107); Globulin 2.8 g/dL (1.3-4.6); Glomerular Filtration Rate 54.8 mL/min (90-130); Glucose 299 mg/dL (65-115); Osmolality Calculated 284 mOsm/kg (285-295); Potassium 4.3 mmol/L (3.5-5.1); Sodium 133 mmol/L (136-145); Total Bilirubin 0.7 mg/dL (0.15-1.2); Total Protein 5.3 g/dL (6.6-8.7)
[2019-08-23] MEDS: cosyntropin 0.25 mg SDV IVP (15:45)
[2019-08-23 15:48] LABS: Cosyntropin Baseline 2.11 mcg/dL
[2019-08-23 17:33] LABS: Glucose Point of Care 351 mg/dL (70-110)
[2019-08-23 18:04] LABS: Cosyntropin 30 Minute 10.11 mcg/dL
[2019-08-23] MEDS: apixaban 5 mg Tablet 10 MG PO (18:06)
[2019-08-23] MEDS: iron sucrose 200 MG in sodium chloride 0.9% (100 ml) 100 ML 220 MG IV (18:17)
[2019-08-23] MEDS: insulin glargine 100 units/1 mL 50 UNIT SUBCUT (20:19)
[2019-08-23 20:28] LABS: Glucose Point of Care 368 mg/dL (70-110)
[2019-08-24] VITALS: PULSE 77
[2019-08-24 04:00] VITALS: BP 125/61; PULSE 85; RESP 12; TEMP 36.6; O2SAT 96
[2019-08-24] MEDS: sucralfate 1 gm Tablet PO ×2 (06:09→10:43)
[2019-08-24 06:15] LABS: Glucose Point of Care 270 mg/dL (70-110)
[2019-08-24 07:48] LABS: Alanine Aminotransferase 18 U/L (0-33); Alkaline Phosphatase 163 IU/L (35-105); Chloride 99 mmol/L (98-107); Potassium 4.6 mmol/L (3.5-5.1); Sodium 133 mmol/L (136-145)
[2019-08-24 08:00] VITALS: BP 104/63; PULSE 75; RESP 17; TEMP 36.6; O2SAT 100
[2019-08-24 08:44] LABS: Anion Gap 16.8 (5-19); Aspartate Amino Transferase 13 U/L (0-32); Blood Urea Nitrogen 24 mg/dL (8-23); Calcium 9.6 mg/dL (8.5-10.5); Carbon Dioxide 25 mmol/L (22-29); Globulin 2.8 g/dL (1.3-4.6); Glomerular Filtration Rate 70.9 mL/min (90-130); Glucose 275 mg/dL (65-115); Osmolality Calculated 287 mOsm/kg (285-295); Total Bilirubin 0.8 mg/dL (0.15-1.2); Total Protein 5.7 g/dL (6.6-8.7)
--- NOTE | 2019-08-24 09:00 | PC.SOCIAL ---
IMM completed 08/24/2019 @ 0450
--- NOTE | 2019-08-24 09:47 | P.DS_ITS ---
Discharge Providers Date of Admission: 08/21/19 23:37 Date of Discharge: August 24, 2019 Attending Provider at Admission: Jairo Fuentes Attending Provider at Discharge: Henrique Nobles MD Primary Care Provider: Shannon Earl MD Diagnoses at Discharge Discharge Diagnosis (1) Pulmonary emboli: Status: Acute (2) DVT (deep venous thrombosis): Status: Acute (3) History of GI bleed: Status: Acute (4) PUD (peptic ulcer disease): Status: Acute (5) Anemia: Status: Acute (6) Acute kidney injury: Status: Acute (7) Troponin level elevated: Status: Acute (8) Alkaline phosphatase elevation: Status: Acute (9) Hypotension: Status: Acute (10) Adrenal insufficiency: Status: Acute Problem details: Test done on August 23, 2019: COSYN BASE 2.11 Col: 08/23/19 1452 COSYN 30 10.11 Col: 08/23/19 1625 COSYN 60 12.40 Col: 08/23/19 1650 Reason for Visit Reason for Visit: leg swelling Hospital Course Discharge Summary: Yesika Sanchez is a 69 year old lady with multiple recent admissions, as well as visits to primary care provider office, with initially wound on left lower extremity, subsequently cellulitis, and for that she was treated with a course of Keflex, subsequently developed a maculopapular morbilliform rash, with blistering, as well as was hospitalized for urinary tract infection with ESBL E. coli which received treatment with imipenem after broad-spectrum antibiotics initially. The etiology for the rash was most likely because of drug-induced from Keflex. She states her rash is improving a lot well. On examination the rash does actually look a lot better than the day of discharge. She presented to the ER on August 20 complaining of 3 days of swelling and redness of her right lower extremity along with fatigue. She denies of having any hemoptysis, difficulty in breathing, cough, chest pain. In the ER she was found to have borderline blood pressure so CTA chest was done which was consistent with multiple small pulmonary emboli in both lungs along with incidental 2.2 cm left adrenal nodule and a 5 mm left lung nodule. Lower limb Dopplers were done which are consistent with DVT in the right popliteal and peroneal veins. She was started on heparin drip while monitoring her hemoglobin because of history of recent GI bleed and anemia. Her hemoglobin remained stable and she was transitioned over to oral Eliquis. She supposed to take Eliquis 10 mg for 7 days twice a day after that 5 mg twice daily for at least 6 months. Because of soft blood pressures during this admission which has started at home as well considerations are most likely repeat sepsis or adrenal insufficiency. Her antihypertensives were withheld. She did not have any fever and leukocytosis and monitored off antibiotics for 24 hours and she remained stable. Cosyntropin test was done which was consistent with adrenal insufficiency. Her baseline cortisol level was 2 and christy to 12 and 60minute which is less than acceptable limit when it should be above 18. Because of this reason her antihypertensives have been adjusted and she has been sent home on prednisone 5 mg Dosepak to be weaned off appropriately. For now she supposed to take metoprolol 12.5 mg twice daily and lisinopril 5 mg daily. She is not supposed to take any more Lasix or Imdur at present. She has been advised to check her blood pressures twice a day and maintain a blood pressure diary and follow-up with her primary care physician with a blood pressure diary so that the medication can be readjusted according to the numbers. Patient most likely requires home health again but she is not willing for the same because she does not trust him anymore. She was counseled multiple times both by myself and by my care coordination team regarding the home health but she does not want them anymore. She is been discharged in hemodynamically stable condition with advised to follow-up with her primary care provider within next 2 weeks with a blood pressure diary on change medications. Medications were provided to her with meds to bed. Physical Exam Narrative: EXAM NARRATIVE: General: No acute distress, AO x3 HEENT: PERRLA, pupils bilaterally equal and reactive Chest: Normal vesicular breath sounds, no added sounds, equal good air entry bilaterally CVS: S1-S2 regular, no murmurs, no tachycardia, no gallops, no rubs Abdomen: Soft, nontender, no organomegaly, bowel sounds present Neuro: No focal deficits, no facial deformity, AO x3, power 5/5 in all limbs Urinary Catheter Management^: Khan: Cath Placed During This Visit: yes Reason for Continuing Indwelling Catheter: Acute Urinary Retention or Obstruction Urinary Catheter Date of Insertion: 08/22/19 Urinary Catheter Time of Insertion: 04:00 Discharge Data Data Completed and Pending: Completed Studies During Hospitalization Category Date Time Status CT angio chest PE protcl [id number] Stat Cat Scan 08/21/19 17:51 Completed XR chest 1V ophelia ble [id number] Stat Exams 08/21/19 16:23 Completed XR tibia fibula R T 2V [id number] Stat Exams 08/21/19 16:28 Completed CV echo limited 9 [id number] Stat Ultrasound 08/21/19 18:13 [place] [id number] Stat Ultrasound 08/21/19 16:23 Completed Pending at discharge Category Date Time Status Blood Culture Sta t Lab 08/21/19 16:40 Results Complete Blood Co unt w/Auto Routine Lab 08/24/19 07:47 Ordered Immunochemical Fe amy OCB Routine Lab 08/22/19 00:55 Uncollected Labs from last 24 hours 08/24/19 08/24/19 08/24/19 07:25 07:25 06:08 WBC Cancelled Corrected WBC Cancelled RBC Cancelled Hgb Cancelled Hct Cancelled MCV Cancelled MCH Cancelled MCHC Cancelled RDW Cancelled Plt Count Cancelled MPV Cancelled Gran % Cancelled Neut % (Auto) Cancelled Lymph % (Auto) Cancelled [place] % (Auto) Cancelled Eos % (Auto) Cancelled Baso % (Auto) Cancelled Neut # (Auto) Cancelled Lymph # (Auto) Cancelled [place] # (Auto) Cancelled Eos # (Auto) Cancelled Baso # (Auto) Cancelled Absolute Gran (aut o) Cancelled Nucleated RBC % (a uto) Cancelled Nucleated RBCs # Cancelled Sodium 133 L Potassium 4.6 Chloride 99 Carbon Dioxide 25 Anion Gap 16.8 BUN 24 H Creatinine 0.8 GFR Calculation 70.9 L Glucose 275 H POC Glucose 270 Calculated Osmolal ity 287 Calcium 9.6 Total Bilirubin 0.8 AST 13 ALT 18 Alkaline Phosphata se 163 H Total Protein 5.7 L Albumin 3.0 L Globulin 2.8 Cortisol Response 08/23/19 08/23/19 08/23/19 20:11 16:48 14:52 WBC Corrected WBC RBC Hgb Hct MCV MCH MCHC RDW Plt Count MPV Gran % Neut % (Auto) Lymph % (Auto) [place] % (Auto) Eos % (Auto) Baso % (Auto) Neut # (Auto) Lymph # (Auto) [place] # (Auto) Eos # (Auto) Baso # (Auto) Absolute Gran (aut o) Nucleated RBC % (a uto) Nucleated RBCs # Sodium Potassium Chloride Carbon Dioxide Anion Gap BUN Creatinine GFR Calculation Glucose POC Glucose 368 351 Calculated Osmolal ity Calcium Total Bilirubin AST ALT Alkaline Phosphata se Total Protein Albumin Globulin Cortisol Response 08/23/19 08/23/19 14:52 11:22 WBC Corrected WBC RBC Hgb Hct MCV MCH MCHC RDW Plt Count MPV Gran % Neut % (Auto) Lymph % (Auto) [place] % (Auto) Eos % (Auto) Baso % (Auto) Neut # (Auto) Lymph # (Auto) [place] # (Auto) Eos # (Auto) Baso # (Auto) Absolute Gran (aut o) Nucleated RBC % (a uto) Nucleated RBCs # Sodium 133 L Potassium 4.3 Chloride 99 Carbon Dioxide 27 Anion Gap 11.3 BUN 32 H Creatinine 1.0 H GFR Calculation 54.8 L Glucose 299 H POC Glucose 263 Calculated Osmolal ity 284 L Calcium 9.3 Total Bilirubin 0.7 AST 14 ALT 17 Alkaline Phosphata se 159 H Total Protein 5.3 L Albumin 2.5 L Globulin 2.8 Cortisol Response Vitals: Last Vital Signs Temp 97.9 F 08/24/19 08:00 Pulse 75 08/24/19 08:00 Resp 17 08/24/19 08:00 BP 104/63 08/24/19 08:00 Pulse Ox 100 08/24/19 08:00 Discharge Plan Discharge Patient Disposition: Home, Self-Care Condition: Stable Prescriptions: Esau Dinero DVT-PE Treat 30D Start 5 mg (74 tabs) tablets,dose pack See Rx Instructions .ROUTE .COMPLEX Qty: 74 RF: 0 prednisone 5 mg tablets,dose pack See Rx Instructions .ROUTE .COMPLEX Qty: 21 RF: 0 ferrous gluconate 324 mg (37.5 mg iron) tablet 324 mg PO BID Qty: 30 RF: 0 polyethylene glycol 3350 [Miralax] 17 gram powder in packet 17 gm PO DAILY PRN (Reason: constipation) Qty: 14 RF: 0 Continued albuterol sulfate [Ventolin HFA] 90 mcg/actuation HFA aerosol inhaler 2 puff INHALATION Q6H PRN (Reason: Shortness Of Breath) RF: 0 cholecalciferol (vitamin D3) 2,000 unit tablet 2,000 unit PO DAILY RF: 0 allopurinol 300 mg tablet 300 mg PO BID Qty: 60 RF: 5 atorvastatin [Lipitor] 40 mg tablet 40 mg PO DAILY Qty: 30 RF: 5 fluticasone propionate 50 mcg/actuation spray,suspension 2 spray INTRANASAL DAILY Qty: 15.8 RF: 2 lisinopril 5 mg tablet 5 mg PO DAILY Qty: 60 RF: 0 potassium chloride 20 mEq tablet extended release 20 meq PO BID Qty: 90 RF: 3 nitroglycerin [Nitrostat] 0.4 mg tablet, sublingual 0.4 mg SUBLINGUAL Q5M PRN (Reason: Chest Pain) Qty: 20 RF: 3 insulin aspart U-100 [Novolog U-100 Insulin aspart] 100 unit/mL solution See Rx Instructions .ROUTE .COMPLEX Qty: 30 RF: 3 sucralfate 1 gram tablet See Rx Instructions .ROUTE .COMPLEX Qty: 120 RF: 0 silver sulfadiazine 1 % cream 1 applic topical BID Qty: 50 RF: 0 nystatin 100,000 unit/gram powder 1 applic TOPICAL BID Qty: 60 RF: 2 Multiple Vitamins Tablet 1 tab PO DAILY RF: 0 [place] Pill 1 cap PO BID RF: 0 cyclobenzaprine 10 mg tablet 10 mg PO TID PRN (Reason: unknown) RF: 0 meclizine 25 mg tablet 25 mg PO TID PRN (Reason: Dizziness) RF: 0 diclofenac sodium [Voltaren] 1 % gel 4 gm TOPICAL QID RF: 0 pantoprazole 40 mg tablet,delayed release (DR/EC) 40 mg PO BID RF: 0 loratadine [Claritin] 10 mg tablet 10 mg PO Q24H PRN (Reason: Allergy Symptoms) RF: 0 clopidogrel [Plavix] 75 mg Tablet 75 mg PO DAILY RF: 0 doxycycline monohydrate 100 mg Tablet 100 mg PO Q12H Qty: 6 RF: 0 metoprolol tartrate 25 mg Tablet 12.5 mg PO Q12H Qty: 30 RF: 0 Levemir U-100 Insulin 100 unit/mL solution See Rx Instructions .ROUTE .COMPLEX Qty: 70 RF: 0 Discontinued isosorbide mononitrate 30 mg tablet extended release 24 hr 30 mg PO DAILY Qty: 30 RF: 5 Lasix 80 mg Tablet 80 mg PO BID RF: 0 prednisone 10 mg tablet See Rx Instructions .ROUTE .COMPLEX RF: 0 Discharge Orders: Discharge Order (Routine); Ordered 08/24/19 Ordered By: Henrique Nobles Referrals: Shannon Earl MD [Primary Care Provider] - 2 weeks Discharge Diet: Cardiac and Diabetic Discharge Activity: Resume usual activity, Increase activity as tolerated and As per PT/OT instructions Activity Restrictions/Additional Instructions: Antihypertensives have been changed. Please take only lisinopril and Lopressor 12.5 mg twice daily. Prednisone to be taken as directed to the Dosepak. Eliquis 10 mg twice daily for next 6 days followed by 5 mg twice daily. Please follow-up with your primary care provider within next 2 weeks. Please maintain blood pressure diary at home and check your blood pressure twice a day before going to see your primary care provider. Discharge Attestations Time Spent in Discharge Care*: greater than 30 min Specific Discharge Activities: Specific discharge activities: educating patient, discussing with pcp/other providers, discussing with correctional case manager/social workers/dc planners, documenting/other paperwork and evaluating patient/reviewing data Status at Discharge: Cognitive status at discharge: cognitively intact , Behavioral status at discharge: cooperative , Functional status at discharge: uses cane/walker Overall status at discharge: patient is back to baseline Quality Metrics Clinical Quality Measures During this hospital stay, did patient experience: VTE Contraindication to Overlap Therapy: Overlap therapy prescribed VTE Discharge Education: Education about anticoagulant therapy/Care Notes given Coding Level of Care Code Acute Commiss[employer] Representative for g Fwd Diagnoses Pulmonary emboli I26.99 DVT (deep venous thrombosis) I82.409 History of GI bleed Z87.19 PUD (peptic ulcer disease) K27.9 Anemia D64.9 Acute kidney injury N17.9 Troponin level elevated R79.89 Alkaline phosphatase elevation R74.8 Hypotension I95.9 Adrenal insufficiency E27.40
[2019-08-24] MEDS: meclizine 25 mg tablet PO (10:36)
[2019-08-24] MEDS: apixaban 5 mg Tablet 10 MG PO (10:36)
[2019-08-24] MEDS: atorvastatin 40 mg Tablet PO (10:36)
[2019-08-24] MEDS: clopidogrel 75 mg Tablet PO (10:37)
[2019-08-24] MEDS: nystatin powder 15 gm Btl 1 APPLIC TOPICAL (10:37)
[2019-08-24] MEDS: pantoprazole DR 40 mg Tablet PO (10:37)
[2019-08-24] MEDS: clotrimazole 1% cream 30 gm 1 APPLIC TOPICAL (10:38)
[2019-08-24] MEDS: fluticasone nasal spray 16gm Btl 2 SPRAY INTRANASAL (10:38)
[2019-08-24] MEDS: silver sulfadiazine cream 1% 50 gm 1 APPLIC TOPICAL (10:39)
[2019-08-24 11:29] LABS: Glucose Point of Care 229 mg/dL (70-110)
[2019-08-24 11:34] LABS: Basophils % 0.2 %; Eosinophils # 0.2 10^3/uL (0.0-0.8); Eosinophils % 3.9 %; Hemoglobin 8.8 g/dL (11.5-15.3); Lymphocytes # 0.8 10^3/uL (0.8-4.8); Lymphocytes % 14.8 %; Mean Corpuscular HGB Conc 29.3 g/dL (30.0-36.0); Mean Corpuscular Hemoglobin 27.5 pg (28.0-34.0); Mean Corpuscular Volume 93.8 fL (81-99); Mean Platelet Volume 10.4 fL (7.4-10.4); Monocytes # 0.3 10^3/uL (0.2-0.9); Monocytes % 6.4 %; Neutrophils # 3.83 10^3/uL (1.8-7.7); Neutrophils % 74.3 %; Nucleated Red Blood Cells % 0 %; Platelet Count 98 10^3/cmm (130-400); White Blood Count 5.2 10^3/uL (4.0-10.0)
[2019-08-24 11:57] VITALS: BP 104/63; PULSE 75; RESP 17; TEMP 36.6; O2SAT 100
--- NOTE | 2019-08-24 13:44 | PC.NURSE ---
discharge instructions given and explained[place] [facility] [place]..also instructed in new medications.pt verb understanding of instructions.discharged via w/c to exit at 12:30
== END 2019-08-24 12:30 | disposition home or self-care (01) | DRG 299 ==
LOC: ER 16:26 → CSU 23:59
PROVIDERS: Admitting Provider Internal Medicine; Emergency Provider Emergency Medicine; PCP Family Medicine; Visit Provider Student in an Organized Health Care Education/Training Program
DX: I82.409 Acute embolism and thrombosis of unspecified deep veins of unspecified lower extremity (principal); I26.99 Other pulmonary embolism without acute cor pulmonale; N17.9 Acute kidney failure, unspecified; I95.9 Hypotension, unspecified; D64.9 Anemia, unspecified; Z87.19 Personal history of other diseases of the digestive system; K27.9 Peptic ulcer, site unspecified, unspecified as acute or chronic, without hemorrhage or perforation; Z79.4 Long term (current) use of insulin; Z79.02 Long term (current) use of antithrombotics/antiplatelets; E78.5 Hyperlipidemia, unspecified; F41.9 Anxiety disorder, unspecified; N18.9 Chronic kidney disease, unspecified; E11.22 Type 2 diabetes mellitus with diabetic chronic kidney disease; E11.42 Type 2 diabetes mellitus with diabetic polyneuropathy; I12.9 Hypertensive chronic kidney disease with stage 1 through stage 4 chronic kidney disease, or unspecified chronic kidney disease; Z95.5 Presence of coronary angioplasty implant and graft; Z87.891 Personal history of nicotine dependence
CPT/HCPCS: 12345; 36415; 36416; 51702; 71045; 71275; 73590; 80053; 81001; 82533; 82550; 82728; 82962; 83540; 83550; 83605; 83880; 84145; 84484; 85018; 85025; 85049; 85610; 85730; 87040; 87641; 93005; 93308; 93971; 94664; 96372; 96375; 97110; 97116; 97161; 97530; 99283; J0743; J0834; J1644; J1756; J1815 ×2; J2270; J2405; J2543; J3370; J7030; J7050; J7512; J8597; Q9967

== ENCOUNTER 2019-08-31 21:03 | Emergency (ER) | payer MEDICARE, MEDICAID, SELFPAY ==
[2019-08-31 21:04] VITALS: BP 115/47; PULSE 71; RESP 16; TEMP 36.6; O2SAT 71; BMI 47.2
[2019-08-31 21:20] VITALS: BP 106/45; PULSE 69; RESP 16; O2SAT 100
[2019-08-31 21:35] LABS: Glucose Point of Care 106 mg/dL (70-110)
[2019-08-31 21:40] LABS: Basophils % 0.3 %; Eosinophils # 0.2 10^3/uL (0.0-0.8); Eosinophils % 1.6 %; Hematocrit 33.4 % (37.0-47.0); Hemoglobin 9.3 g/dL (11.5-15.3); Lymphocytes # 1.1 10^3/uL (0.8-4.8); Lymphocytes % 8.9 %; Mean Corpuscular HGB Conc 27.8 g/dL (30.0-36.0); Mean Corpuscular Hemoglobin 28.4 pg (28.0-34.0); Mean Corpuscular Volume 102.1 fL (81-99); Mean Platelet Volume 9.9 fL (7.4-10.4); Monocytes # 0.7 10^3/uL (0.2-0.9); Monocytes % 5.7 %; Neutrophils # 10.52 10^3/uL (1.8-7.7); Neutrophils % 83.1 %; Nucleated Red Blood Cells % 0 %; Platelet Count 133 10^3/cmm (130-400); Red Blood Count 3.27 10^6/uL (4.1-5.3); Red Cell Distribution Width 22.4 % (12.1-15.1); White Blood Count 12.7 10^3/uL (4.0-10.0)
[2019-08-31 21:45] LABS: Specific Gravity, Urine 1.015 (1.005-1.030); Urine Appearance Hazy (CLEAR); Urine Color Straw (Yellow); pH Urine 5 (5-7)
[2019-08-31 21:46] LABS: Add Urine Microscopic? YES; Bilirubin Urine Neg (NEGATIVE); Blood Urine Neg (Negative); Glucose Urine UA Norm (Normal); Ketones Urine Negative (Negative); Leukocyte Esterase Urine Negative (Negative); Nitrate Urine Negative (Negative); Protein Urine Neg (Negative); Urobilinogen Urine Norm (Negative)
[2019-08-31 21:49] LABS: Add Urine Culture? Yes; Bacteria Urine TRACE; Squamous Epithelial Cell Urine 0-4 (0-5)
[2019-08-31 21:56] LABS: Lactate (Lactic Acid level) 1.5 mmol/L (0.5-2.2)
[2019-08-31 22:05] LABS: Alanine Aminotransferase 18 U/L (0-33); Albumin Level 3.1 g/dL (3.5-5.2); Alkaline Phosphatase 148 IU/L (35-105); Anion Gap 12.5 (5-19); Aspartate Amino Transferase 17 U/L (0-32); Blood Urea Nitrogen 37 mg/dL (8-23); Carbon Dioxide 24 mmol/L (22-29); Chloride 104 mmol/L (98-107); Glomerular Filtration Rate 49.1 mL/min (90-130); Glucose 104 mg/dL (65-115); NT Pro B Type Natriuretic Pept 209 pg/mL (0-125); Osmolality Calculated 282 mOsm/kg (285-295); Potassium 3.5 mmol/L (3.5-5.1); Sodium 137 mmol/L (136-145); Total Bilirubin 0.7 mg/dL (0.15-1.2); Total Protein 6.1 g/dL (6.6-8.7)
--- NOTE | 2019-08-31 22:51 | PC.NURSE ---
blood glucose is 103
[2019-08-31 22:53] LABS: Glucose Point of Care 103 mg/dL (70-110)
[2019-08-31 23:00] VITALS: BP 128/56; PULSE 67; RESP 14; O2SAT 100
--- NOTE | 2019-08-31 23:27 | ED_ITS ---
Documented by User: Catrachita Chung MD 09/01/19 11:41 HPI - General Adult General: Chief complaint: General Medical Stated complaint: HYPOGLYCEMIA Time Seen by Provider: 08/31/19 21:07 History of Present Illness: HPI narrative: This patient is a 69-year-old female presenting today with altered mental status. EMS was called for an unresponsive patient. On arrival she was noted to have a low glucose. Glucagon did not help. After an IV was established she was given dextrose and is now awake and alert. She is able to tell me that she takes Levemir and Humalog. She is not able to tell me when she took them last. She is not able to tell me when she ate last. Her crossing tender arrived later in the visit and said that when he found her there was food out on the table as though she had been trying to make her self something to eat. She denies any other complaints. Onset (ago): unknown Associated symptoms: Deny chest pain, dyspnea, headache(s), malaise, nausea, rash or vomiting Review of Systems General: Reports: 10 or more systems reviewed and unremarkable except in HPI and below and Other (Questionable reliability of the review of systems) Const: Denies: fever(s), chills, fatigue or malaise Eyes: Denies: change in vision ENMT: Denies: odynophagia Card: Denies: chest pain or swelling of feet/ankles Resp: Denies: dyspnea, productive cough or non-productive cough GI: Denies: abdominal pain, nausea or vomiting : Denies: flank pain or difficulty voiding Musc: Denies: neck pain or back pain Skin/Breast: Denies: rash Neuro: Denies: headache(s), numbness in extremities or weakness in extremities Steven/Lymph: Denies: easy bruising or easy bleeding PFSH ED PFSH: Medical History Anxiety ASHD (arteriosclerotic heart disease) Back pain CHF (congestive heart failure) CKD (chronic kidney disease) Coronary artery disease DDD (degenerative disc disease) Decreased hearing of both ears Diabetes Diabetic polyneuropathy Duodenal ulcer Dyslipidemia History of GI bleed Hypertension Incarcerated incisional hernia Morbid obesity Morbilliform rash PUD (peptic ulcer disease) Vitamin B deficiency Vitamin D deficiency Surgical History H/O esophagogastroduodenoscopy (~06/05/19) H/O hernia repair History of coronary artery stent placement Cardiac cath on 12/13/2016 with stent placement to LAD Hx of section 3 Hx of cholecystectomy Hx of tonsillectomy S/P appendectomy S/P plastic surgery 2019, panniculectomy Family History Mother CAD (coronary artery disease) Other Hypertension Social History Smoking and tobacco status: former smoker Quit status (tobacco): has quit using tobacco Former quit date comment: 2.5 PPD x 40 yrs Alcohol intake: unknown Lives independently: Yes Household members: spouse Housing: House Marital status: Pets and animals: Yes History of recent travel: No Current gender identity: Female Female Reproductive History: Date of last menstrual period: 06/05/19 Physical Exam Const: COMMON NORMALS: no acute distress, patient oriented x3 (A little fuzzy on time), no limitations and alert GENERAL APPEARANCE: cooperative, comfortable and disheveled NUTRITIONAL APPEARANCE: obese morbidly obese HENMT: HEAD & SCALP: normal to inspection FACE & SINUS: normal facial exam Eye: GENERAL EYE: appearance normal, both eyes and all related structures Neck/C-Spine: COMMON NORMALS: supple, no meningeal signs and no JVD Chest: COMMONS NORMALS: normal inspection of the chest Resp: COMMON NORMALS: normal respiratory effort, No use of accessory muscles and clear to auscultation bilaterally AUSCULTATION: clear to auscultation bilaterally Cardio: COMMON NORMALS: no JVD, regular rate, regular rhythm and No murmurs present (Cardio) RATE: regular rate RHYTHM: regular rhythm GI: COMMON NORMALS: Normal to inspection, nondistended, normoactive bowel sounds present, Soft to palpation and non-tender INSPECTION: Yes normal to inspection AUSCULTATION: Yes normoactive bowel sounds PALPATION: Yes Soft to palpation Back/Pelvis: COMMON NORMALS: thoracic and lumbar spine normal to inspection Extremity: COMMON NORMALS: normal to inspection Neuro: COMMON NORMALS: patient oriented x3 (A little fuzzy on time), moves all extremities, no focal motor deficits and no sensory deficits noted SENSORIUM/ORIENTATION: Yes alert MENINGEAL SIGNS: Yes no meningeal signs Psych: COMMON NORMALS: mental status grossly normal, cooperative and normal affect Skin: COMMON NORMALS: no rashes or lesions noted and turgor normal GENERAL SKIN EXAM: no rashes or lesions noted and turgor normal Course ED course: Patient thinks she forgot to eat earlier today but she is really unable to give me any specifics. Because we do not know when she last ate or when she last took her insulin we will watch her for several hours and make sure her blood sugar does not drop. Also going to check labs including renal function. Vital Signs: Vital signs: Vital Signs Temperature 97.9 F 08/31/19 21:04 Pulse Rate 70 09/01/19 03:04 Respiratory Rate 18 09/01/19 03:04 Blood Pressure 110/71 09/01/19 03:04 Pulse Oximetry 99 09/01/19 03:04 [facility] - General Adult Lab Data: Labs: Lab Results 08/31/19 08/31/19 08/31/19 Range/Units 21:25 21:28 21:31 WBC 12.7 H (4.0-10.0) 10^3/ uL RBC 3.27 L (4.1-5.3) 10^6/u L Hgb 9.3 L (11.5-15.3) g/dL Hct 33.4 L (37.0-47.0) % MCV 102.1 H (81-99) fL MCH 28.4 (28.0-34.0) pg MCHC 27.8 L (30.0-36.0) g/dL RDW 22.4 H (12.1-15.1) % Plt Count 133 (130-400) 10^3/c mm MPV 9.9 (7.4-10.4) fL Neut % (Auto) 83.1 % Lymph % (Auto) 8.9 % Christian % (Auto) 5.7 % Eos % (Auto) 1.6 % Baso % (Auto) 0.3 % Neut # (Auto) 10.52 H (1.8-7.7) 10^3/u L Lymph # (Auto) 1.1 (0.8-4.8) 10^3/u L Christian # (Auto) 0.7 (0.2-0.9) 10^3/u L Eos # (Auto) 0.2 (0.0-0.8) 10^3/u L Baso # (Auto) 0.0 (0.0-0.1) 10^3/u L Nucleated RBC % (a uto) 0 % Nucleated RBCs # 0.0 /100WBC Sodium (136-145) mmol/L Potassium (3.5-5.1) mmol/L Chloride (98-107) mmol/L Carbon Dioxide (22-29) mmol/L Anion Gap (5-19) BUN (8-23) mg/dL Creatinine (0.5-0.9) mg/dL GFR Calculation (90-130) mL/min Glucose (65-115) mg/dL POC Glucose 106 (70-110) mg/dL Calculated Osmolal ity (285-295) mOsm/k g Lactate (0.5-2.2) mmol/L Calcium (8.5-10.5) mg/dL Total Bilirubin (0.15-1.2) mg/dL AST (0-32) U/L ALT (0-33) U/L Alkaline Phosphata se (35-105) IU/L NT-Pro-B Natriuret Pep (0-125) pg/mL Total Protein (6.6-8.7) g/dL Albumin (3.5-5.2) g/dL Globulin (1.3-4.6) g/dL Urine Color Straw (Yellow) Urine Appearance Hazy A (CLEAR) Urine pH 5 (5-7) Ur Specific Gravit y 1.015 (1.005-1.030) Urine Protein Neg (Negative) Urine Glucose (UA) Norm (Normal) Urine Ketones Negative (Negative) Urine Blood Neg (Negative) Urine Nitrate Negative (Negative) Urine Bilirubin Neg (NEGATIVE) Urine Urobilinogen Norm (Negative) mg/dL Ur Leukocyte Rema ase Negative (Negative) Urine RBC None (0-2) /hpf Urine WBC None (0-5) /hpf Ur Squamous Epith Cells 0-4 H (0-5) Amorphous Sediment Not Reportable Urine Bacteria Trace (NONE) Urine Yeast 1+ H 08/31/19 08/31/19 08/31/19 Range/Units 21:31 21:31 22:48 WBC (4.0-10.0) 10^3/ uL RBC (4.1-5.3) 10^6/u L Hgb (11.5-15.3) g/dL Hct (37.0-47.0) % MCV (81-99) fL MCH (28.0-34.0) pg MCHC (30.0-36.0) g/dL RDW (12.1-15.1) % Plt Count (130-400) 10^3/c mm MPV (7.4-10.4) fL Neut % (Auto) % Lymph % (Auto) % Christian % (Auto) % Eos % (Auto) % Baso % (Auto) % Neut # (Auto) (1.8-7.7) 10^3/u L Lymph # (Auto) (0.8-4.8) 10^3/u L Christian # (Auto) (0.2-0.9) 10^3/u L Eos # (Auto) (0.0-0.8) 10^3/u L Baso # (Auto) (0.0-0.1) 10^3/u L Nucleated RBC % (a uto) % Nucleated RBCs # /100WBC Sodium 137 (136-145) mmol/L Potassium 3.5 (3.5-5.1) mmol/L Chloride 104 (98-107) mmol/L Carbon Dioxide 24 (22-29) mmol/L Anion Gap 12.5 (5-19) BUN 37 H (8-23) mg/dL Creatinine 1.1 H (0.5-0.9) mg/dL GFR Calculation 49.1 L (90-130) mL/min Glucose 104 (65-115) mg/dL POC Glucose 103 (70-110) mg/dL Calculated Osmolal ity 282 L (285-295) mOsm/k g Lactate 1.5 (0.5-2.2) mmol/L Calcium 10.0 (8.5-10.5) mg/dL Total Bilirubin 0.7 (0.15-1.2) mg/dL AST 17 (0-32) U/L ALT 18 (0-33) U/L Alkaline Phosphata se 148 H (35-105) IU/L NT-Pro-B Natriuret Pep 209 H (0-125) pg/mL Total Protein 6.1 L (6.6-8.7) g/dL Albumin 3.1 L (3.5-5.2) g/dL Globulin 3.0 (1.3-4.6) g/dL Urine Color (Yellow) Urine Appearance (CLEAR) Urine pH (5-7) Ur Specific Gravit y (1.005-1.030) Urine Protein (Negative) Urine Glucose (UA) (Normal) Urine Ketones (Negative) Urine Blood (Negative) Urine Nitrate (Negative) Urine Bilirubin (NEGATIVE) Urine Urobilinogen (Negative) mg/dL Ur Leukocyte Rema ase (Negative) Urine RBC (0-2) /hpf Urine WBC (0-5) /hpf Ur Squamous Epith Cells (0-5) Amorphous Sediment Urine Bacteria (NONE) Urine Yeast 09/01/19 09/01/19 Range/Units 00:07 02:11 WBC (4.0-10.0) 10^3/ uL RBC (4.1-5.3) 10^6/u L Hgb (11.5-15.3) g/dL Hct (37.0-47.0) % MCV (81-99) fL MCH (28.0-34.0) pg MCHC (30.0-36.0) g/dL RDW (12.1-15.1) % Plt Count (130-400) 10^3/c mm MPV (7.4-10.4) fL Neut % (Auto) % Lymph % (Auto) % Christian % (Auto) % Eos % (Auto) % Baso % (Auto) % Neut # (Auto) (1.8-7.7) 10^3/u L Lymph # (Auto) (0.8-4.8) 10^3/u L Christian # (Auto) (0.2-0.9) 10^3/u L Eos # (Auto) (0.0-0.8) 10^3/u L Baso # (Auto) (0.0-0.1) 10^3/u L Nucleated RBC % (a uto) % Nucleated RBCs # /100WBC Sodium (136-145) mmol/L Potassium (3.5-5.1) mmol/L Chloride (98-107) mmol/L Carbon Dioxide (22-29) mmol/L Anion Gap (5-19) BUN (8-23) mg/dL Creatinine (0.5-0.9) mg/dL GFR Calculation (90-130) mL/min Glucose (65-115) mg/dL POC Glucose 79 134 (70-110) mg/dL Calculated Osmolal ity (285-295) mOsm/k g Lactate (0.5-2.2) mmol/L Calcium (8.5-10.5) mg/dL Total Bilirubin (0.15-1.2) mg/dL AST (0-32) U/L ALT (0-33) U/L Alkaline Phosphata se (35-105) IU/L NT-Pro-B Natriuret Pep (0-125) pg/mL Total Protein (6.6-8.7) g/dL Albumin (3.5-5.2) g/dL Globulin (1.3-4.6) g/dL Urine Color (Yellow) Urine Appearance (CLEAR) Urine pH (5-7) Ur Specific Gravit y (1.005-1.030) Urine Protein (Negative) Urine Glucose (UA) (Normal) Urine Ketones (Negative) Urine Blood (Negative) Urine Nitrate (Negative) Urine Bilirubin (NEGATIVE) Urine Urobilinogen (Negative) mg/dL Ur Leukocyte Rema ase (Negative) Urine RBC (0-2) /hpf Urine WBC (0-5) /hpf Ur Squamous Epith Cells (0-5) Amorphous Sediment Urine Bacteria (NONE) Urine Yeast Discharge Plan Discharge Patient Disposition: Home Clinical Impression: Hypoglycemia Condition: Stable Prescriptions: No Action albuterol sulfate [Ventolin HFA] 90 mcg/actuation HFA aerosol inhaler 2 puff INHALATION Q6H PRN (Reason: Shortness Of Breath) RF: 0 cholecalciferol (vitamin D3) 2,000 unit tablet 2,000 unit PO DAILY RF: 0 allopurinol 300 mg tablet 300 mg PO BID Qty: 60 RF: 5 atorvastatin [Lipitor] 40 mg tablet 40 mg PO DAILY Qty: 30 RF: 5 fluticasone propionate 50 mcg/actuation spray,suspension 2 spray INTRANASAL DAILY Qty: 15.8 RF: 2 lisinopril 5 mg tablet 5 mg PO DAILY Qty: 60 RF: 0 potassium chloride 20 mEq tablet extended release 20 meq PO BID Qty: 90 RF: 3 nitroglycerin [Nitrostat] 0.4 mg tablet, sublingual 0.4 mg SUBLINGUAL Q5M PRN (Reason: Chest Pain) Qty: 20 RF: 3 insulin aspart U-100 [Novolog U-100 Insulin aspart] 100 unit/mL solution See Rx Instructions .ROUTE .COMPLEX Qty: 30 RF: 3 sucralfate 1 gram tablet See Rx Instructions .ROUTE .COMPLEX Qty: 120 RF: 0 nystatin 100,000 unit/gram powder 1 applic TOPICAL BID Qty: 60 RF: 2 pantoprazole 40 mg tablet,delayed release (DR/EC) 40 mg PO BID Qty: 60 RF: 0 silver sulfadiazine 1 % cream 1 applic topical BID Qty: 50 RF: 0 Multiple Vitamins Tablet 1 tab PO DAILY RF: 0 [place] Pill 1 cap PO BID RF: 0 cyclobenzaprine 10 mg tablet 10 mg PO TID PRN (Reason: unknown) RF: 0 meclizine 25 mg tablet 25 mg PO TID PRN (Reason: Dizziness) RF: 0 Eliquis DVT-PE Treat 30D Start 5 mg (74 tabs) tablets,dose pack See Rx Instructions .ROUTE .COMPLEX Qty: 74 RF: 0 prednisone 5 mg tablets,dose pack See Rx Instructions .ROUTE .COMPLEX Qty: 21 RF: 0 ferrous gluconate 324 mg (37.5 mg iron) tablet 324 mg PO BID Qty: 30 RF: 0 Miralax 17 gram powder in packet 17 gm PO DAILY PRN (Reason: constipation) Qty: 14 RF: 0 diclofenac sodium [Voltaren] 1 % gel 4 gm TOPICAL QID RF: 0 loratadine [Claritin] 10 mg tablet 10 mg PO Q24H PRN (Reason: Allergy Symptoms) RF: 0 clopidogrel [Plavix] 75 mg Tablet 75 mg PO DAILY RF: 0 doxycycline monohydrate 100 mg Tablet 100 mg PO Q12H Qty: 6 RF: 0 metoprolol tartrate 25 mg Tablet 12.5 mg PO Q12H Qty: 30 RF: 0 Levemir U-100 Insulin 100 unit/mL solution See Rx Instructions .ROUTE .COMPLEX Qty: 70 RF: 0 Discharge Orders: Discharge Order (Routine); Ordered 09/01/19 Ordered By: Wing Larsen Referrals: Shannon Earl MD [Primary Care Provider] - 4-7 days Discharge Diet: Advance as tolerated Discharge Activity: Increase activity as tolerated Patient Instructions: Diabetic Hypoglycemia (ED) Activity Restrictions/Additional Instructions: Check your blood sugar at least every 4 hours for the next 24 hours, and if blood sugars returned to normal, then you may return to your normal regimen. 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 for Chg Fwd Exam Comprehensive Documented by User: Wing Larsen DO 09/01/19 06:58 HPI - General Adult General: Chief complaint: General Medical Stated complaint: HYPOGLYCEMIA Time Seen by Provider: 08/31/19 21:07 PFSH ED PFSH: Medical History Anxiety ASHD (arteriosclerotic heart disease) Back pain CHF (congestive heart failure) CKD (chronic kidney disease) Coronary artery disease DDD (degenerative disc disease) Decreased hearing of both ears Diabetes Diabetic polyneuropathy Duodenal ulcer Dyslipidemia History of GI bleed Hypertension Incarcerated incisional hernia Morbid obesity Morbilliform rash PUD (peptic ulcer disease) Vitamin B deficiency Vitamin D deficiency Surgical History H/O esophagogastroduodenoscopy (~06/05/19) H/O hernia repair History of coronary artery stent placement Cardiac cath on 12/13/2016 with stent placement to LAD Hx of section 3 Hx of cholecystectomy Hx of tonsillectomy S/P appendectomy S/P plastic surgery 2019, panniculectomy Family History Mother CAD (coronary artery disease) Other Hypertension Social History Smoking and tobacco status: former smoker Quit status (tobacco): has quit using tobacco Former quit date comment: 2.5 PPD x 40 yrs Alcohol intake: unknown Lives independently: Yes Household members: spouse Housing: House Marital status: Pets and animals: Yes History of recent travel: No Current gender identity: Female Course ED course: 69-year-old female checked out to me by Dr. Chung. She had a hypoglycemic episode at home. Sugar initially came up, but then came down again. The patient ate here, and sugar is now trending up again. She is feeling better. We will allow discharge. Vital Signs: Vital signs: Vital Signs Temperature 97.9 F 08/31/19 21:04 Pulse Rate 70 09/01/19 03:04 Respiratory Rate 18 09/01/19 03:04 Blood Pressure 110/71 09/01/19 03:04 Pulse Oximetry 99 09/01/19 03:04 MDM - General Adult Lab Data: Labs: Lab Results 08/31/19 08/31/19 08/31/19 Range/Units 21:25 21:28 21:31 WBC 12.7 H (4.0-10.0) 10^3/ uL RBC 3.27 L (4.1-5.3) 10^6/u L Hgb 9.3 L (11.5-15.3) g/dL Hct 33.4 L (37.0-47.0) % MCV 102.1 H (81-99) fL MCH 28.4 (28.0-34.0) pg MCHC 27.8 L (30.0-36.0) g/dL RDW 22.4 H (12.1-15.1) % Plt Count 133 (130-400) 10^3/c mm MPV 9.9 (7.4-10.4) fL Neut % (Auto) 83.1 % Lymph % (Auto) 8.9 % Christian % (Auto) 5.7 % Eos % (Auto) 1.6 % Baso % (Auto) 0.3 % Neut # (Auto) 10.52 H (1.8-7.7) 10^3/u L Lymph # (Auto) 1.1 (0.8-4.8) 10^3/u L Christian # (Auto) 0.7 (0.2-0.9) 10^3/u L Eos # (Auto) 0.2 (0.0-0.8) 10^3/u L Baso # (Auto) 0.0 (0.0-0.1) 10^3/u L Nucleated RBC % (a uto) 0 % Nucleated RBCs # 0.0 /100WBC Sodium (136-145) mmol/L Potassium (3.5-5.1) mmol/L Chloride (98-107) mmol/L Carbon Dioxide (22-29) mmol/L Anion Gap (5-19) BUN (8-23) mg/dL Creatinine (0.5-0.9) mg/dL GFR Calculation (90-130) mL/min Glucose (65-115) mg/dL POC Glucose 106 (70-110) mg/dL Calculated Osmolal ity (285-295) mOsm/k g Lactate (0.5-2.2) mmol/L Calcium (8.5-10.5) mg/dL Total Bilirubin (0.15-1.2) mg/dL AST (0-32) U/L ALT (0-33) U/L Alkaline Phosphata se (35-105) IU/L NT-Pro-B Natriuret Pep (0-125) pg/mL Total Protein (6.6-8.7) g/dL Albumin (3.5-5.2) g/dL Globulin (1.3-4.6) g/dL Urine Color Straw (Yellow) Urine Appearance Hazy A (CLEAR) Urine pH 5 (5-7) Ur Specific Gravit y 1.015 (1.005-1.030) Urine Protein Neg (Negative) Urine Glucose (UA) Norm (Normal) Urine Ketones Negative (Negative) Urine Blood Neg (Negative) Urine Nitrate Negative (Negative) Urine Bilirubin Neg (NEGATIVE) Urine Urobilinogen Norm (Negative) mg/dL Ur Leukocyte Rema ase Negative (Negative) Urine RBC None (0-2) /hpf Urine WBC None (0-5) /hpf Ur Squamous Epith Cells 0-4 H (0-5) Amorphous Sediment Not Reportable Urine Bacteria Trace (NONE) Urine Yeast 1+ H 08/31/19 08/31/19 08/31/19 Range/Units 21:31 21:31 22:48 WBC (4.0-10.0) 10^3/ uL RBC (4.1-5.3) 10^6/u L Hgb (11.5-15.3) g/dL Hct (37.0-47.0) % MCV (81-99) fL MCH (28.0-34.0) pg MCHC (30.0-36.0) g/dL RDW (12.1-15.1) % Plt Count (130-400) 10^3/c mm MPV (7.4-10.4) fL Neut % (Auto) % Lymph % (Auto) % Christian % (Auto) % Eos % (Auto) % Baso % (Auto) % Neut # (Auto) (1.8-7.7) 10^3/u L Lymph # (Auto) (0.8-4.8) 10^3/u L Christian # (Auto) (0.2-0.9) 10^3/u L Eos # (Auto) (0.0-0.8) 10^3/u L Baso # (Auto) (0.0-0.1) 10^3/u L Nucleated RBC % (a uto) % Nucleated RBCs # /100WBC Sodium 137 (136-145) mmol/L Potassium 3.5 (3.5-5.1) mmol/L Chloride 104 (98-107) mmol/L Carbon Dioxide 24 (22-29) mmol/L Anion Gap 12.5 (5-19) BUN 37 H (8-23) mg/dL Creatinine 1.1 H (0.5-0.9) mg/dL GFR Calculation 49.1 L (90-130) mL/min Glucose 104 (65-115) mg/dL POC Glucose 103 (70-110) mg/dL Calculated Osmolal ity 282 L (285-295) mOsm/k g Lactate 1.5 (0.5-2.2) mmol/L Calcium 10.0 (8.5-10.5) mg/dL Total Bilirubin 0.7 (0.15-1.2) mg/dL AST 17 (0-32) U/L ALT 18 (0-33) U/L Alkaline Phosphata se 148 H (35-105) IU/L NT-Pro-B Natriuret Pep 209 H (0-125) pg/mL Total Protein 6.1 L (6.6-8.7) g/dL Albumin 3.1 L (3.5-5.2) g/dL Globulin 3.0 (1.3-4.6) g/dL Urine Color (Yellow) Urine Appearance (CLEAR) Urine pH (5-7) Ur Specific Gravit y (1.005-1.030) Urine Protein (Negative) Urine Glucose (UA) (Normal) Urine Ketones (Negative) Urine Blood (Negative) Urine Nitrate (Negative) Urine Bilirubin (NEGATIVE) Urine Urobilinogen (Negative) mg/dL Ur Leukocyte Rema ase (Negative) Urine RBC (0-2) /hpf Urine WBC (0-5) /hpf Ur Squamous Epith Cells (0-5) Amorphous Sediment Urine Bacteria (NONE) Urine Yeast 09/01/19 09/01/19 Range/Units 00:07 02:11 WBC (4.0-10.0) 10^3/ uL RBC (4.1-5.3) 10^6/u L Hgb (11.5-15.3) g/dL Hct (37.0-47.0) % MCV (81-99) fL MCH (28.0-34.0) pg MCHC (30.0-36.0) g/dL RDW (12.1-15.1) % Plt Count (130-400) 10^3/c mm MPV (7.4-10.4) fL Neut % (Auto) % Lymph % (Auto) % Christian % (Auto) % Eos % (Auto) % Baso % (Auto) % Neut # (Auto) (1.8-7.7) 10^3/u L Lymph # (Auto) (0.8-4.8) 10^3/u L Christian # (Auto) (0.2-0.9) 10^3/u L Eos # (Auto) (0.0-0.8) 10^3/u L Baso # (Auto) (0.0-0.1) 10^3/u L Nucleated RBC % (a uto) % Nucleated RBCs # /100WBC Sodium (136-145) mmol/L Potassium (3.5-5.1) mmol/L Chloride (98-107) mmol/L Carbon Dioxide (22-29) mmol/L Anion Gap (5-19) BUN (8-23) mg/dL Creatinine (0.5-0.9) mg/dL GFR Calculation (90-130) mL/min Glucose (65-115) mg/dL POC Glucose 79 134 (70-110) mg/dL Calculated Osmolal ity (285-295) mOsm/k g Lactate (0.5-2.2) mmol/L Calcium (8.5-10.5) mg/dL Total Bilirubin (0.15-1.2) mg/dL AST (0-32) U/L ALT (0-33) U/L Alkaline Phosphata se (35-105) IU/L NT-Pro-B Natriuret Pep (0-125) pg/mL Total Protein (6.6-8.7) g/dL Albumin (3.5-5.2) g/dL Globulin (1.3-4.6) g/dL Urine Color (Yellow) Urine Appearance (CLEAR) Urine pH (5-7) Ur Specific Gravit y (1.005-1.030) Urine Protein (Negative) Urine Glucose (UA) (Normal) Urine Ketones (Negative) Urine Blood (Negative) Urine Nitrate (Negative) Urine Bilirubin (NEGATIVE) Urine Urobilinogen (Negative) mg/dL Ur Leukocyte Rema ase (Negative) Urine RBC (0-2) /hpf Urine WBC (0-5) /hpf Ur Squamous Epith Cells (0-5) Amorphous Sediment Urine Bacteria (NONE) Urine Yeast Discharge Plan Discharge Patient Disposition: Home Clinical Impression: Hypoglycemia Condition: Stable Prescriptions: No Action albuterol sulfate [Ventolin HFA] 90 mcg/actuation HFA aerosol inhaler 2 puff INHALATION Q6H PRN (Reason: Shortness Of Breath) RF: 0 cholecalciferol (vitamin D3) 2,000 unit tablet 2,000 unit PO DAILY RF: 0 allopurinol 300 mg tablet 300 mg PO BID Qty: 60 RF: 5 atorvastatin [Lipitor] 40 mg tablet 40 mg PO DAILY Qty: 30 RF: 5 fluticasone propionate 50 mcg/actuation spray,suspension 2 spray INTRANASAL DAILY Qty: 15.8 RF: 2 lisinopril 5 mg tablet 5 mg PO DAILY Qty: 60 RF: 0 potassium chloride 20 mEq tablet extended release 20 meq PO BID Qty: 90 RF: 3 nitroglycerin [Nitrostat] 0.4 mg tablet, sublingual 0.4 mg SUBLINGUAL Q5M PRN (Reason: Chest Pain) Qty: 20 RF: 3 insulin aspart U-100 [Novolog U-100 Insulin aspart] 100 unit/mL solution See Rx Instructions .ROUTE .COMPLEX Qty: 30 RF: 3 sucralfate 1 gram tablet See Rx Instructions .ROUTE .COMPLEX Qty: 120 RF: 0 nystatin 100,000 unit/gram powder 1 applic TOPICAL BID Qty: 60 RF: 2 pantoprazole 40 mg tablet,delayed release (DR/EC) 40 mg PO BID Qty: 60 RF: 0 silver sulfadiazine 1 % cream 1 applic topical BID Qty: 50 RF: 0 Multiple Vitamins Tablet 1 tab PO DAILY RF: 0 [place] Pill 1 cap PO BID RF: 0 cyclobenzaprine 10 mg tablet 10 mg PO TID PRN (Reason: unknown) RF: 0 meclizine 25 mg tablet 25 mg PO TID PRN (Reason: Dizziness) RF: 0 Eliquis DVT-PE Treat 30D Start 5 mg (74 tabs) tablets,dose pack See Rx Instructions .ROUTE .COMPLEX Qty: 74 RF: 0 prednisone 5 mg tablets,dose pack See Rx Instructions .ROUTE .COMPLEX Qty: 21 RF: 0 ferrous gluconate 324 mg (37.5 mg iron) tablet 324 mg PO BID Qty: 30 RF: 0 Miralax 17 gram powder in packet 17 gm PO DAILY PRN (Reason: constipation) Qty: 14 RF: 0 diclofenac sodium [Voltaren] 1 % gel 4 gm TOPICAL QID RF: 0 loratadine [Claritin] 10 mg tablet 10 mg PO Q24H PRN (Reason: Allergy Symptoms) RF: 0 clopidogrel [Plavix] 75 mg Tablet 75 mg PO DAILY RF: 0 doxycycline monohydrate 100 mg Tablet 100 mg PO Q12H Qty: 6 RF: 0 metoprolol tartrate 25 mg Tablet 12.5 mg PO Q12H Qty: 30 RF: 0 Levemir U-100 Insulin 100 unit/mL solution See Rx Instructions .ROUTE .COMPLEX Qty: 70 RF: 0 Discharge Orders: Discharge Order (Routine); Ordered 09/01/19 Ordered By: Wing Larsen Referrals: Shannon Earl MD [Primary Care Provider] - 4-7 days Discharge Diet: Advance as tolerated Discharge Activity: Increase activity as tolerated Patient Instructions: Diabetic Hypoglycemia (ED) Activity Restrictions/Additional Instructions: Check your blood sugar at least every 4 hours for the next 24 hours, and if blood sugars returned to normal, then you may return to your normal regimen. 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
[2019-09-01 00:10] LABS: Glucose Point of Care 79 mg/dL (70-110)
[2019-09-01 00:36] VITALS: BP 134/64; PULSE 66; RESP 15; O2SAT 98
[2019-09-01 02:18] LABS: Glucose Point of Care 134 mg/dL (70-110)
[2019-09-01 02:26] VITALS: PULSE 81; RESP 17; O2SAT 96
[2019-09-01 03:04] VITALS: BP 110/71; PULSE 70; RESP 18; O2SAT 99
== END 2019-09-01 03:09 | disposition home or self-care (01) ==
PROVIDERS: Emergency Medicine; Emergency Provider Emergency Medicine; PCP Family Medicine
DX: E11.649 Type 2 diabetes mellitus with hypoglycemia without coma (principal); Z79.4 Long term (current) use of insulin; Z79.01 Long term (current) use of anticoagulants; Z79.02 Long term (current) use of antithrombotics/antiplatelets; I11.0 Hypertensive heart disease with heart failure; I50.9 Heart failure, unspecified; I25.10 Atherosclerotic heart disease of native coronary artery without angina pectoris; E78.5 Hyperlipidemia, unspecified; Z87.891 Personal history of nicotine dependence
CPT/HCPCS: 12345; 36415; 36416; 80053; 81001; 81003; 82962; 83605; 83880; 85025; 87077; 87086; 87186; 99283; 99284

== ENCOUNTER → 2019-10-16 13:10 | Outpatient (BNVA) | payer MEDICARE, MEDICAID, SELFPAY | PROVIDERS: PCP Family Medicine; Visit Provider Family Medicine | DX: R30.0 Dysuria (principal); N30.01 Acute cystitis with hematuria | CPT/HCPCS: 80053; 87077; 87086; 87186 ==

== ENCOUNTER → 2019-11-21 15:54 | Outpatient (BNVA) | payer MEDICARE, MEDICAID, SELFPAY | PROVIDERS: PCP Family Medicine; Visit Provider Family Medicine | DX: N30.01 Acute cystitis with hematuria (principal); M25.561 Pain in right knee; M25.562 Pain in left knee | CPT/HCPCS: 80053; 81003; 87077; 87086; 87184 ==

== ENCOUNTER → 2019-12-13 13:52 | Outpatient (BNVA) | payer MEDICARE, MEDICAID, SELFPAY | PROVIDERS: PCP Family Medicine; Referring Provider Family Medicine; Visit Provider Nurse Practitioner Family | DX: N30.01 Acute cystitis with hematuria (principal) | CPT/HCPCS: 81003; 87077; 87086; 87184 ==

== ENCOUNTER 2019-12-13 20:03 | Inpatient (IN) | payer MEDICARE, MEDICAID, SELFPAY ==
--- NOTE | 2019-12-13 20:07 | CTR_ITS ---
PROCEDURE INFORMATION: Exam: CT Head Without Contrast Exam date and time: 12/13/2019 8:15 PM Age: 69 years old Clinical indication: Altered mental status/memory loss; Patient HX: Multiple falls. Best images possible TECHNIQUE: Imaging protocol: Computed tomography of the head without contrast. Radiation optimization: All CT scans at this facility use at least one of these dose optimization techniques: automated exposure control; mA and/or kV adjustment per patient size (includes targeted exams where dose is matched to clinical indication); or iterative reconstruction. ADDITIONAL STUDY INFORMATION: Total DLP (mGy-cm): 1321.74 COMPARISON: CT head wo con* [id number] 12/13/2016 5:20 AM FINDINGS: Examination is limited by artifacts from patient motion. There is mild low density in the periventricular white matter which may represent chronic small vessel ischemic disease in the appropriate clinical setting. There are prominent intracranial arterial calcifications. There is mild cerebral cortical volume loss. Ventricles do not appear significantly dilated. No definite depressed calvarial fracture is demonstrated. Visualized paranasal sinuses and mastoid air cells demonstrate no significant opacification. CT/CT head wo con* [id number] IMPRESSION: Probable chronic ischemic changes as discussed above. Radiation Dose CTDIVOL = (mGy): DLP = 1321.74 (mGy-cm)
[2019-12-13 20:08] VITALS: BP 110/75; PULSE 118; RESP 16; TEMP 38.2; O2SAT 100; BMI 36.6
--- NOTE | 2019-12-13 20:08 | XR_ITS ---
WS: [id number] XR chest 1V portable [id number] REASON FOR EXAM: Altered mental status FINDINGS: Considering the positioning and portable technique the chest is unchanged compared to 08/21/2019. Ther e is tortuosity and ectasia of the thoracic aorta. The heart is at the upper limits of normal in size . No definite active pulmonary parenchymal or pleural disease is noted. Degenerative spondylosis in the lower and mid thoracic spine. XR/XR chest 1V portable [id number] IMPRESSION: No acute chest abnormality.
--- NOTE | 2019-12-13 20:09 | CTR_ITS ---
PROCEDURE INFORMATION: Exam: CT Cervical Spine Without Contrast Exam date and time: 12/13/2019 8:15 PM Age: 69 years old Clinical indication: Injury or trauma; Fall; Blunt trauma; Patient HX: PT AMS. Best images possible; Additional info: Pain TECHNIQUE: Imaging protocol: Computed tomography images of the cervical spine without contrast. Radiation optimization: All CT scans at this facility use at least one of these dose optimization techniques: automated exposure control; mA and/or kV adjustment per patient size (includes targeted exams where dose is matched to clinical indication); or iterative reconstruction. ADDITIONAL STUDY INFORMATION: Total DLP (mGy-cm): 1197.08 COMPARISON: CT Cervical Spine wo* [id number] 01/12/2019 8:29 PM FINDINGS: Examination is limited by artifacts from patient motion and body habitus. Height of cervical bodies otherwise appears grossly within normal limits. There is mild multilevel malalignment, likely secondary to degenerative changes. Some straightening of the cervical spine may be due to muscle spasm. There are prominent multilevel degenerative changes in the cervical spine. There appears to be spinal canal narrowing. Further assessment cannot be made of the cervical spinal canal or its contents due to artifacts. No convincing acute fracure is demonstrated when allowing for the degenerative changes and artifacts. Consider MRI of cervical spine for further assessment if clinically warranted, particularly for further assessment of the spinal canal and its contents, spinal cord, nerve roots, intervertebral disks, ligaments, other spinal soft tissues, bone edema, etc., if patient has no contraindication to MRI. CT/CT cervical spin wo con* [id number] IMPRESSION: No convincing acute fracture is demonstrated when allowing for degenerative changes and artifacts as discussed above. Radiation Dose CTDIVOL = (mGy): DLP = 1197.08 (mGy-cm)
--- NOTE | 2019-12-13 20:10 | ECG_ITS ---
[facility] Test Date: 2019-12-13 Pat Name: Yesika Sanchez Department: Room: Gender: Female Vp Security: : 1950 Requested By: Joanne Zaldivar Order Number: [id number] Mariaa MD: GARCIA WHITE Measurements Intervals [place] Rate: 117 P: OR: -1 QRS: -42 QRSD: 113 T: 30 QT: 321 QTc: 449 Interpretive Statements SUPRAVENTRICULAR TACHYCARDIA LEFT AXIS DEVIATION [QRS AXIS < -30] S1-S2-S3 PATTERN, CONSISTENT WITH PULMONARY DISEASE, RVH, OR NORMAL VARIANT PATTERN CONSISTENT WITH PULMONARY DISEASE MODERATE INTRAVENTRICULAR CONDUCTION DELAY [110+ ms QRS DURATION] Compared to ECG 08/22/2019 05:40:35 Right ventricular hypertrophy now present Intraventricular conduction delay now present Sinus rhythm no longer present Myocardial infarct finding no longer present Electronically Signed On 12-14-2019 19:29:25 [employer] by GARCIA WHITE [email or web address]
[2019-12-13 20:14] VITALS: BP 131/79; PULSE 117; RESP 27; O2SAT 96
--- NOTE | 2019-12-13 20:21 | W.ED.AMS ---
HPI - Altered Mental Status General: Chief Complaint: Altered Mental Status Stated Complaint: ams Time Seen by Provider: 12/13/19 20:07 Source: EMS Mode of arrival: EMS Limitations: altered mental status History of Present Illness: HPI narrative: Mrs. Sanchez is a 69-year-old female brought in by EMS with report of altered mental status for the past few hours. She apparently became argumentative with her but then began talking bizarrely and would not make sense. She appeared confused. She fell multiple times but it is not believed that she was hurt or injured. EMS was called and they stated the patient was combative and agitated for them in route. They did get a temperature up to 100.2. It is unknown if the patient's been having any illness or fever type symptoms at home prior. Family is reportedly not coming to the hospital and gave a poor history at the scene. All further information is taken from old charts. Review of Systems General: Reports: ROS unobtainable due to mental status PFS ED PFSH: Medical History Anxiety ASHD (arteriosclerotic heart disease) Back pain CHF (congestive heart failure) CKD (chronic kidney disease) Coronary artery disease DDD (degenerative disc disease) Decreased hearing of both ears Diabetes Diabetic polyneuropathy Duodenal ulcer Dyslipidemia History of GI bleed Hypertension Incarcerated incisional hernia Morbid obesity Morbilliform rash PUD (peptic ulcer disease) Recurrent UTI Vitamin B deficiency Vitamin D deficiency Surgical History H/O esophagogastroduodenoscopy (~06/05/19) H/O hernia repair History of coronary artery stent placement Cardiac cath on 12/13/2016 with stent placement to LAD Hx of section 3 Hx of cholecystectomy Hx of tonsillectomy S/P appendectomy S/P plastic surgery 2019, panniculectomy Family History Mother CAD (coronary artery disease) Other Hypertension Social History Smoking and tobacco status: former smoker Quit status (tobacco): has quit using tobacco Former quit date comment: 2.5 PPD x 40 yrs Alcohol intake: unknown Lives independently: Yes Household members: spouse Housing: House Marital status: Pets and animals: Yes History of recent travel: No Current gender identity: Female Female Reproductive History: Date of last menstrual period: 06/05/19 Physical Exam Const: COMMON NORMALS: alert EXAM LIMITATIONS: altered mental status GENERAL APPEARANCE: disheveled NUTRITIONAL APPEARANCE: obese ORIENTATION/CONSCIOUSNESS: Yes confused HENMT: COMMON NORMALS: normocephalic, atraumatic, external ears normal, EAC's normal and Normal external nose present HEAD & SCALP: normal to inspection, normocephalic and atraumatic FACE & SINUS: normal facial exam and face symmetric NOSE: Normal external nose present and Normal nares present EXTERNAL EAR: Yes external ears normal EXTERNAL AUDITORY CANAL: EAC's normal MOUTH: Normal oral and palatal mucosa present, lip normal and tongue normal Eye: COMMON NORMALS: Equal, round and reactive pupils present and conjunctivae normal GENERAL EYE: appearance normal, both eyes and all related structures ALIGNMENT: Yes alignment normal PERIORBITAL: periorbital findings normal EYELID: eyelids normal CONJUNCTIVA: Yes conjunctivae normal SCLERA: sclerae normal PUPIL: Yes Equal, round and reactive pupils present Neck/C-Spine: COMMON NORMALS: full ROM, no lymphadenopathy, supple, no meningeal signs and no JVD GENERAL: Yes normal visual inspection and Yes trachea midline Chest: COMMONS NORMALS: normal inspection of the chest and normal palpation of entire chest wall Resp: COMMON NORMALS: normal respiratory effort, No retractions, No use of accessory muscles and clear to auscultation bilaterally EFFORT & INSPECTION: Yes able to speak in complete sentences and Yes symmetric chest movement AUSCULTATION: clear to auscultation bilaterally, no crackles, no rales, no rhonchi and no wheezes Cardio: COMMON NORMALS: no JVD, regular rhythm, S1 normal heart sound present and S2 normal heart sound present RHYTHM: regular rhythm HEART SOUNDS: S1 normal heart sound present, S2 normal heart sound present, no click, no gallops, no murmurs and no rubs GI: COMMON NORMALS: Soft to palpation and No hepatosplenomegaly present PALPATION: Yes Soft to palpation, No Tenderness to palpation present (GI), No Guarding due to palpation present (GI), No Rigid due to palpation, Yes No hepatosplenomegaly present, No Hernia present, No Palpable mass present and No Pulsatile mass present : COMMON NORMALS: Yes no CVA tenderness BLADDER/KIDNEY EXAM: Yes no CVA tenderness EXTERNAL FEMALE EXAM: No Hernia present Back/Pelvis: COMMON NORMALS: no CVA tenderness, thoracic and lumbar spine normal to inspection, no thoracic nor lumbar tenderness and thoraco-lumbar ROM normal Extremity: COMMON NORMALS: normal to inspection, full ROM, capillary refill normal, no joint enlargement, no clubbing, cyanosis or edema and no calf tenderness Neuro: COMMON NORMALS: CN's II-XII intact bilaterally, moves all extremities, no focal motor deficits and no sensory deficits noted SENSORIUM/ORIENTATION: Yes alert MENINGEAL SIGNS: Yes no meningeal signs Skin: COMMON NORMALS: no rashes or lesions noted, turgor normal, no jaundice, no petechiae and no mottling GENERAL SKIN EXAM: no rashes or lesions noted and turgor normal Procedures EJ/Peripheral Line Arm L: Time Out Performed: Yes Skin Cleansed in Sterile Fashion: Yes Size (gauge): 20 IV Secured and Dressing Applied: Yes Patient Tolerated Procedure: well and no complications Additional Comments: Ultrasound utilized throughout procedure. Course Vital Signs: Vital signs: Vital Signs Temperature 98.4 F 12/14/19 01:49 Pulse Rate 107 H 12/14/19 01:49 Respiratory Rate 20 H 12/14/19 01:49 Blood Pressure 139/78 12/14/19 01:49 Pulse Oximetry 98 12/14/19 01:49 MDM - Altered Mental Status MDM Narrative: Medical decision making narrative: 0026 -patient's mentation is improved as her fever is subsided. A definite cause for her fever is not been determined. There is no evidence of acute intrathoracic or intra-abdominal pathology. Patient did have a small buttock abscess but there is no sign of significant soft tissue infection to go along with this. I cannot perform a lumbar puncture as the patient is on Eliquis. Currently we are awaiting to see what her blood sugar is after IV fluids and subcu insulin. I have endorsed the case to Dr. Medina and he is agreeable to admission. Lab Data: Attestation: I reviewed the patient's lab results. Labs: Lab Results 12/13/19 12/13/19 12/13/19 Range/Units 00:39 20:33 20:48 WBC 6.2 (4.0-10.0) 10^3/ uL RBC 3.25 L (4.1-5.3) 10^6/u L Hgb 10.8 L (11.5-15.3) g/dL Hct 33.1 L (37.0-47.0) % MCV 101.8 H (81-99) fL MCH 33.2 (28.0-34.0) pg MCHC 32.6 (30.0-36.0) g/dL RDW 14.7 (12.1-15.1) % Plt Count 72 L (130-400) 10^3/c mm MPV 10.5 H (7.4-10.4) fL Neut % (Auto) 91.1 % Lymph % (Auto) 2.1 % [place] % (Auto) 5.8 % Eos % (Auto) 0.3 % Baso % (Auto) 0.2 % Neut # (Auto) 5.68 (1.8-7.7) 10^3/u L Lymph # (Auto) 0.1 L (0.8-4.8) 10^3/u L [place] # (Auto) 0.4 (0.2-0.9) 10^3/u L Eos # (Auto) 0.0 (0.0-0.8) 10^3/u L Baso # (Auto) 0.0 (0.0-0.1) 10^3/u L Nucleated RBC % (a uto) 0 % Nucleated RBCs # 0.0 /100WBC PT (12.1-14.9) SECO NDS INR (0.8-1.2) APTT (23.9-36.7) SECO NDS Specimen Type Arterial Sample Site Brachial, left ABG pH 7.45 (7.35-7.45) ABG pCO2 39.9 (35-45) mmHg ABG pO2 82.5 (80.0-100.0) mmH g ABG HCO3 27.4 H (22-26) mmol/L ABG Base Excess 3.1 H (-2.0-2.0) mmol/ L See Test Pos Hematocrit 35.1 L (37-47) % O2 Delivery Device Nc O2 Liters/Min 2.0 % FiO2 28.0 % Director Of Trauma ID [id number] Sodium (136-145) mmol/L Potassium (3.5-5.1) mmol/L Chloride (98-107) mmol/L Carbon Dioxide (22-29) mmol/L Anion Gap (5-19) BUN (8-23) mg/dL Creatinine (0.5-0.9) mg/dL GFR Calculation (90-130) mL/min Glucose (65-115) mg/dL POC Glucose (70-110) mg/dL Calculated Osmolal ity (285-295) mOsm/k g Calcium (8.5-10.5) mg/dL Magnesium (1.7-2.3) mg/dL Total Bilirubin (0.15-1.2) mg/dL AST (0-32) U/L ALT (0-33) U/L Alkaline Phosphata se (35-105) IU/L Creatine Kinase (26-192) U/L Troponin T Baselin e (0-10) ng/L Troponin T 120 Min [place] 47.95 H (0-10) ng/L Delta Troponin T Not Reportable Total Protein (6.6-8.7) g/dL Albumin (3.5-5.2) g/dL Globulin (1.3-4.6) g/dL Lipase (13-60) U/L TSH (0.27-4.20) uIU/ mL Free T4 (0.82-1.77) ng/d L Urine Color (Yellow) Urine Appearance (CLEAR) Urine pH (5-7) Ur Specific Gravit y (1.005-1.030) Urine Protein (Negative) Urine Glucose (UA) (Normal) Urine Ketones (Negative) Urine Blood (Negative) Urine Nitrate (Negative) Urine Bilirubin (Negative) Urine Urobilinogen (Negative) mg/dL Ur Leukocyte Rema ase (Negative) Urine RBC (0-2) /hpf Urine WBC (0-5) /hpf Ur Squamous Epith Cells (0-5) /hpf Amorphous Sediment Urine Bacteria (NONE) /hpf Urine Yeast /hpf Urine Opiates Scre en (Negative) ng/mL Ur Barbiturates Sc reen (Negative) ng/mL Ur Phencyclidine S crn (Negative) ng/mL Ur Amphetamines Sc reen (Negative) ng/mL U Benzodiazepines Scrn (Negative) ng/mL Urine Cocaine Scre en (Negative) ng/mL U Marijuana (THC) Screen (Negative) ng/mL Serum Ketones (Negative) Influenza Type A A g (Negative) Influenza Type B A g (Negative) SARS-CoV-2 Ag (Rap id) (Negative) 12/13/19 12/13/19 12/13/19 Range/Units 20:48 20:48 20:48 WBC (4.0-10.0) 10^3/ uL RBC (4.1-5.3) 10^6/u L Hgb (11.5-15.3) g/dL Hct (37.0-47.0) % MCV (81-99) fL MCH (28.0-34.0) pg MCHC (30.0-36.0) g/dL RDW (12.1-15.1) % Plt Count (130-400) 10^3/c mm MPV (7.4-10.4) fL Neut % (Auto) % Lymph % (Auto) % [place] % (Auto) % Eos % (Auto) % Baso % (Auto) % Neut # (Auto) (1.8-7.7) 10^3/u L Lymph # (Auto) (0.8-4.8) 10^3/u L [place] # (Auto) (0.2-0.9) 10^3/u L Eos # (Auto) (0.0-0.8) 10^3/u L Baso # (Auto) (0.0-0.1) 10^3/u L Nucleated RBC % (a uto) % Nucleated RBCs # /100WBC PT 19.50 H (12.1-14.9) SECO NDS INR 1.59 H (0.8-1.2) APTT 35.9 (23.9-36.7) SECO NDS Specimen Type Sample Site ABG pH (7.35-7.45) ABG pCO2 (35-45) mmHg ABG pO2 (80.0-100.0) mmH g ABG HCO3 (22-26) mmol/L ABG Base Excess (-2.0-2.0) mmol/ L See Test Hematocrit (37-47) % O2 Delivery Device O2 Liters/Min % FiO2 % Director Of Trauma ID Sodium 130 L (136-145) mmol/L Potassium 4.2 (3.5-5.1) mmol/L Chloride 93 L (98-107) mmol/L Carbon Dioxide 26 (22-29) mmol/L Anion Gap 15.2 (5-19) BUN 22 (8-23) mg/dL Creatinine 1.0 H (0.5-0.9) mg/dL GFR Calculation 54.8 L (90-130) mL/min Glucose 712 H* (65-115) mg/dL POC Glucose (70-110) mg/dL Calculated Osmolal ity 307 H (285-295) mOsm/k g Calcium 9.7 (8.5-10.5) mg/dL Magnesium 1.3 L (1.7-2.3) mg/dL Total Bilirubin 1.4 H (0.15-1.2) mg/dL AST 22 (0-32) U/L ALT 22 (0-33) U/L Alkaline Phosphata se 297 H (35-105) IU/L Creatine Kinase 72 (26-192) U/L Troponin T Baselin e 43 H (0-10) ng/L Troponin T 120 Min [place] (0-10) ng/L Delta Troponin T Total Protein 6.3 L (6.6-8.7) g/dL Albumin 3.3 L (3.5-5.2) g/dL Globulin 3.0 (1.3-4.6) g/dL Lipase 28 (13-60) U/L TSH 2.77 (0.27-4.20) uIU/ mL Free T4 1.16 (0.82-1.77) ng/d L Urine Color (Yellow) Urine Appearance (CLEAR) Urine pH (5-7) Ur Specific Gravit y (1.005-1.030) Urine Protein (Negative) Urine Glucose (UA) (Normal) Urine Ketones (Negative) Urine Blood (Negative) Urine Nitrate (Negative) Urine Bilirubin (Negative) Urine Urobilinogen (Negative) mg/dL Ur Leukocyte Rema ase (Negative) Urine RBC (0-2) /hpf Urine WBC (0-5) /hpf Ur Squamous Epith Cells (0-5) /hpf Amorphous Sediment Urine Bacteria (NONE) /hpf Urine Yeast /hpf Urine Opiates Scre en (Negative) ng/mL Ur Barbiturates Sc reen (Negative) ng/mL Ur Phencyclidine S crn (Negative) ng/mL Ur Amphetamines Sc reen (Negative) ng/mL U Benzodiazepines Scrn (Negative) ng/mL Urine Cocaine Scre en (Negative) ng/mL U Marijuana (THC) Screen (Negative) ng/mL Serum Ketones Negative (Negative) Influenza Type A A g (Negative) Influenza Type B A g (Negative) SARS-CoV-2 Ag (Rap id) (Negative) 12/13/19 12/13/19 12/13/19 Range/Units 21:30 22:07 22:07 WBC (4.0-10.0) 10^3/ uL RBC (4.1-5.3) 10^6/u L Hgb (11.5-15.3) g/dL Hct (37.0-47.0) % MCV (81-99) fL MCH (28.0-34.0) pg MCHC (30.0-36.0) g/dL RDW (12.1-15.1) % Plt Count (130-400) 10^3/c mm MPV (7.4-10.4) fL Neut % (Auto) % Lymph % (Auto) % [place] % (Auto) % Eos % (Auto) % Baso % (Auto) % Neut # (Auto) (1.8-7.7) 10^3/u L Lymph # (Auto) (0.8-4.8) 10^3/u L [place] # (Auto) (0.2-0.9) 10^3/u L Eos # (Auto) (0.0-0.8) 10^3/u L Baso # (Auto) (0.0-0.1) 10^3/u L Nucleated RBC % (a uto) % Nucleated RBCs # /100WBC PT (12.1-14.9) SECO NDS INR (0.8-1.2) APTT (23.9-36.7) SECO NDS Specimen Type Sample Site ABG pH (7.35-7.45) ABG pCO2 (35-45) mmHg ABG pO2 (80.0-100.0) mmH g ABG HCO3 (22-26) mmol/L ABG Base Excess (-2.0-2.0) mmol/ L See Test Hematocrit (37-47) % O2 Delivery Device O2 Liters/Min % FiO2 % Director Of Trauma ID Sodium (136-145) mmol/L Potassium (3.5-5.1) mmol/L Chloride (98-107) mmol/L Carbon Dioxide (22-29) mmol/L Anion Gap (5-19) BUN (8-23) mg/dL Creatinine (0.5-0.9) mg/dL GFR Calculation (90-130) mL/min Glucose (65-115) mg/dL POC Glucose (70-110) mg/dL Calculated Osmolal ity (285-295) mOsm/k g Calcium (8.5-10.5) mg/dL Magnesium (1.7-2.3) mg/dL Total Bilirubin (0.15-1.2) mg/dL AST (0-32) U/L ALT (0-33) U/L Alkaline Phosphata se (35-105) IU/L Creatine Kinase (26-192) U/L Troponin T Baselin e (0-10) ng/L Troponin T 120 Min [place] (0-10) ng/L Delta Troponin T Total Protein (6.6-8.7) g/dL Albumin (3.5-5.2) g/dL Globulin (1.3-4.6) g/dL Lipase (13-60) U/L TSH (0.27-4.20) uIU/ mL Free T4 (0.82-1.77) ng/d L Urine Color Yellow (Yellow) Urine Appearance Hazy A (CLEAR) Urine pH 5 (5-7) Ur Specific Gravit y 1.010 (1.005-1.030) Urine Protein Neg (Negative) Urine Glucose (UA) 4+ H (Normal) Urine Ketones Negative (Negative) Urine Blood 2+ H (Negative) Urine Nitrate Positive H (Negative) Urine Bilirubin Neg (Negative) Urine Urobilinogen Norm (Negative) mg/dL Ur Leukocyte Rema ase Negative (Negative) Urine RBC 0-4 H (0-2) /hpf Urine WBC 0-4 H (0-5) /hpf Ur Squamous Epith Cells 0-4 H (0-5) /hpf Amorphous Sediment Not Reportable Urine Bacteria 4+ H (NONE) /hpf Urine Yeast 1+ H /hpf Urine Opiates Scre en Negative (Negative) ng/mL Ur Barbiturates Sc reen Negative (Negative) ng/mL Ur Phencyclidine S crn Negative (Negative) ng/mL Ur Amphetamines Sc reen Negative (Negative) ng/mL U Benzodiazepines Scrn Negative (Negative) ng/mL Urine Cocaine Scre en Negative (Negative) ng/mL U Marijuana (THC) Screen Negative (Negative) ng/mL Serum Ketones (Negative) Influenza Type A A g Negative (Negative) Influenza Type B A g Negative (Negative) SARS-CoV-2 Ag (Rap id) (Negative) 12/13/19 12/13/19 12/14/19 Range/Units 22:37 22:43 00:00 WBC (4.0-10.0) 10^3/ uL RBC (4.1-5.3) 10^6/u L Hgb (11.5-15.3) g/dL Hct (37.0-47.0) % MCV (81-99) fL MCH (28.0-34.0) pg MCHC (30.0-36.0) g/dL RDW (12.1-15.1) % Plt Count (130-400) 10^3/c mm MPV (7.4-10.4) fL Neut % (Auto) % Lymph % (Auto) % [place] % (Auto) % Eos % (Auto) % Baso % (Auto) % Neut # (Auto) (1.8-7.7) 10^3/u L Lymph # (Auto) (0.8-4.8) 10^3/u L [place] # (Auto) (0.2-0.9) 10^3/u L Eos # (Auto) (0.0-0.8) 10^3/u L Baso # (Auto) (0.0-0.1) 10^3/u L Nucleated RBC % (a uto) % Nucleated RBCs # /100WBC PT (12.1-14.9) SECO NDS INR (0.8-1.2) APTT (23.9-36.7) SECO NDS Specimen Type Sample Site ABG pH (7.35-7.45) ABG pCO2 (35-45) mmHg ABG pO2 (80.0-100.0) mmH g ABG HCO3 (22-26) mmol/L ABG Base Excess (-2.0-2.0) mmol/ L See Test Hematocrit (37-47) % O2 Delivery Device O2 Liters/Min % FiO2 % Director Of Trauma ID Sodium (136-145) mmol/L Potassium (3.5-5.1) mmol/L Chloride (98-107) mmol/L Carbon Dioxide (22-29) mmol/L Anion Gap (5-19) BUN (8-23) mg/dL Creatinine (0.5-0.9) mg/dL GFR Calculation (90-130) mL/min Glucose (65-115) mg/dL POC Glucose > 600 > 600 (70-110) mg/dL Calculated Osmolal ity (285-295) mOsm/k g Calcium (8.5-10.5) mg/dL Magnesium (1.7-2.3) mg/dL Total Bilirubin (0.15-1.2) mg/dL AST (0-32) U/L ALT (0-33) U/L Alkaline Phosphata se (35-105) IU/L Creatine Kinase (26-192) U/L Troponin T Baselin e (0-10) ng/L Troponin T 120 Min [place] (0-10) ng/L Delta Troponin T Total Protein (6.6-8.7) g/dL Albumin (3.5-5.2) g/dL Globulin (1.3-4.6) g/dL Lipase (13-60) U/L TSH (0.27-4.20) uIU/ mL Free T4 (0.82-1.77) ng/d L Urine Color (Yellow) Urine Appearance (CLEAR) Urine pH (5-7) Ur Specific Gravit y (1.005-1.030) Urine Protein (Negative) Urine Glucose (UA) (Normal) Urine Ketones (Negative) Urine Blood (Negative) Urine Nitrate (Negative) Urine Bilirubin (Negative) Urine Urobilinogen (Negative) mg/dL Ur Leukocyte Rema ase (Negative) Urine RBC (0-2) /hpf Urine WBC (0-5) /hpf Ur Squamous Epith Cells (0-5) /hpf Amorphous Sediment Urine Bacteria (NONE) /hpf Urine Yeast /hpf Urine Opiates Scre en (Negative) ng/mL Ur Barbiturates Sc reen (Negative) ng/mL Ur Phencyclidine S crn (Negative) ng/mL Ur Amphetamines Sc reen (Negative) ng/mL U Benzodiazepines Scrn (Negative) ng/mL Urine Cocaine Scre en (Negative) ng/mL U Marijuana (THC) Screen (Negative) ng/mL Serum Ketones (Negative) Influenza Type A A g (Negative) Influenza Type B A g (Negative) SARS-CoV-2 Ag (Rap id) Negative (Negative) 12/14/19 12/14/19 Range/Units 00:36 00:39 WBC (4.0-10.0) 10^3/ uL RBC (4.1-5.3) 10^6/u L Hgb (11.5-15.3) g/dL Hct (37.0-47.0) % MCV (81-99) fL MCH (28.0-34.0) pg MCHC (30.0-36.0) g/dL RDW (12.1-15.1) % Plt Count (130-400) 10^3/c mm MPV (7.4-10.4) fL Neut % (Auto) % Lymph % (Auto) % [place] % (Auto) % Eos % (Auto) % Baso % (Auto) % Neut # (Auto) (1.8-7.7) 10^3/u L Lymph # (Auto) (0.8-4.8) 10^3/u L [place] # (Auto) (0.2-0.9) 10^3/u L Eos # (Auto) (0.0-0.8) 10^3/u L Baso # (Auto) (0.0-0.1) 10^3/u L Nucleated RBC % (a uto) % Nucleated RBCs # /100WBC PT (12.1-14.9) SECO NDS INR (0.8-1.2) APTT (23.9-36.7) SECO NDS Specimen Type Sample Site ABG pH (7.35-7.45) ABG pCO2 (35-45) mmHg ABG pO2 (80.0-100.0) mmH g ABG HCO3 (22-26) mmol/L ABG Base Excess (-2.0-2.0) mmol/ L See Test Hematocrit (37-47) % O2 Delivery Device O2 Liters/Min % FiO2 % Director Of Trauma ID Sodium 130 L (136-145) mmol/L Potassium 4.0 (3.5-5.1) mmol/L Chloride 97 L (98-107) mmol/L Carbon Dioxide 23 (22-29) mmol/L Anion Gap 14.0 (5-19) BUN 22 (8-23) mg/dL Creatinine 0.8 (0.5-0.9) mg/dL GFR Calculation 70.9 L (90-130) mL/min Glucose 622 H* (65-115) mg/dL POC Glucose 524 (70-110) mg/dL Calculated Osmolal ity 302 H (285-295) mOsm/k g Calcium 9.1 (8.5-10.5) mg/dL Magnesium (1.7-2.3) mg/dL Total Bilirubin (0.15-1.2) mg/dL AST (0-32) U/L ALT (0-33) U/L Alkaline Phosphata se (35-105) IU/L Creatine Kinase (26-192) U/L Troponin T Baselin e (0-10) ng/L Troponin T 120 Min [place] (0-10) ng/L Delta Troponin T Total Protein (6.6-8.7) g/dL Albumin (3.5-5.2) g/dL Globulin (1.3-4.6) g/dL Lipase (13-60) U/L TSH (0.27-4.20) uIU/ mL Free T4 (0.82-1.77) ng/d L Urine Color (Yellow) Urine Appearance (CLEAR) Urine pH (5-7) Ur Specific Gravit y (1.005-1.030) Urine Protein (Negative) Urine Glucose (UA) (Normal) Urine Ketones (Negative) Urine Blood (Negative) Urine Nitrate (Negative) Urine Bilirubin (Negative) Urine Urobilinogen (Negative) mg/dL Ur Leukocyte Rema ase (Negative) Urine RBC (0-2) /hpf Urine WBC (0-5) /hpf Ur Squamous Epith Cells (0-5) /hpf Amorphous Sediment Urine Bacteria (NONE) /hpf Urine Yeast /hpf Urine Opiates Scre en (Negative) ng/mL Ur Barbiturates Sc reen (Negative) ng/mL Ur Phencyclidine S crn (Negative) ng/mL Ur Amphetamines Sc reen (Negative) ng/mL U Benzodiazepines Scrn (Negative) ng/mL Urine Cocaine Scre en (Negative) ng/mL U Marijuana (THC) Screen (Negative) ng/mL Serum Ketones (Negative) Influenza Type A A g (Negative) Influenza Type B A g (Negative) SARS-CoV-2 Ag (Rap id) (Negative) Imaging Data^: CXR: Attestation: I personally reviewed and interpreted this imaging study as follows: My impression: No acute cardiopulmonary findings. Suggestion of bilateral perihilar prominence. CT Head: Radiologist's impression: [address] [address] [address] Scan Report Signed Patient: Yesika Sanchez Unit #: [id number] : 1950 Age/Sex: 69 / F ADM Date: 12/13/19 Loc: ER Room/Bed: Attending Dr: Ordering Provider/Ordering MD: Joanne Craven DO Date of Service: 12/13/19 Procedure(s): CT head wo con* [id number] Accession Number(s): [id number] Report Number: [id number] PROCEDURE INFORMATION: Exam: CT Head Without Contrast Exam date and time: 12/13/2019 8:15 PM Age: 69 years old Clinical indication: Altered mental status/memory loss; Patient HX: Multiple falls. Best images possible TECHNIQUE: Imaging protocol: Computed tomography of the head without contrast. Radiation optimization: All CT scans at this facility use at least one of these dose optimization techniques: automated exposure control; mA and/or kV adjustment per patient size (includes targeted exams where dose is matched to clinical indication); or iterative reconstruction. ADDITIONAL STUDY INFORMATION: Total DLP (mGy-cm): 1321.74 COMPARISON: CT head wo con* [id number] 12/13/2016 5:20 AM FINDINGS: Examination is limited by artifacts from patient motion. There is mild low density in the periventricular white matter which may represent chronic small vessel ischemic disease in the appropriate clinical setting. There are prominent intracranial arterial calcifications. There is mild cerebral cortical volume loss. Ventricles do not appear significantly dilated. No definite depressed calvarial fracture is demonstrated. Visualized paranasal sinuses and mastoid air cells demonstrate no significant opacification. CT/CT head wo con* [id number] IMPRESSION: Probable chronic ischemic changes as discussed above. Radiation Dose CTDIVOL = (mGy): DLP = 1321.74 (mGy-cm) Dictated By: Nicolás Gomez MD Signed By: Nicolás Gomez MD Signed Date/Time: 12/13/192118 DD/ 17 CT Cervical Spine: Radiologist's impression: [address] [address] [address] Scan Report Signed Patient: Yesika Sanchez Unit #: [id number] : 1950 Age/Sex: 69 / F ADM Date: 12/13/19 Loc: ER Room/Bed: Attending Dr: Ordering Provider/Ordering MD: Joanne Craven DO Date of Service: 12/13/19 Procedure(s): CT cervical spin wo con* [id number] Accession Number(s): [id number] Report Number: [id number] PROCEDURE INFORMATION: Exam: CT Cervical Spine Without Contrast Exam date and time: 12/13/2019 8:15 PM Age: 69 years old Clinical indication: Injury or trauma; Fall; Blunt trauma; Patient HX: PT AMS. Best images possible; Additional info: Pain TECHNIQUE: Imaging protocol: Computed tomography images of the cervical spine without contrast. Radiation optimization: All CT scans at this facility use at least one of these dose optimization techniques: automated exposure control; mA and/or kV adjustment per patient size (includes targeted exams where dose is matched to clinical indication); or iterative reconstruction. ADDITIONAL STUDY INFORMATION: Total DLP (mGy-cm): 1197.08 COMPARISON: CT Cervical Spine wo* [id number] 01/12/2019 8:29 PM FINDINGS: Examination is limited by artifacts from patient motion and body habitus. Height of cervical bodies otherwise appears grossly within normal limits. There is mild multilevel malalignment, likely secondary to degenerative changes. Some straightening of the cervical spine may be due to muscle spasm. There are prominent multilevel degenerative changes in the cervical spine. There appears to be spinal canal narrowing. Further assessment cannot be made of the cervical spinal canal or its contents due to artifacts. No convincing acute fracure is demonstrated when allowing for the degenerative changes and artifacts. Consider MRI of cervical spine for further assessment if clinically warranted, particularly for further assessment of the spinal canal and its contents, spinal cord, nerve roots, intervertebral disks, ligaments, other spinal soft tissues, bone edema, etc., if patient has no contraindication to MRI. CT/CT cervical spin wo con* [id number] IMPRESSION: No convincing acute fracture is demonstrated when allowing for degenerative changes and artifacts as discussed above. Radiation Dose CTDIVOL = (mGy): DLP = 1197.08 (mGy-cm) Dictated By: Nicolás Gomez MD Signed By: Nicolás Gomez MD Signed Date/Time: 12/13/192122 DD/ 21 EKG Data^: EKG 1: Attestation: I personally reviewed and interpreted this EKG as follows: EKG interpretation date: 12/13/19 EKG interpretation time: 20:18 Interpretation: Sinus tachycardia at 117 beats a minute, left axis deviation, normal intervals, nonspecific ST and T wave changes. EKG 2: Attestation: I personally reviewed and interpreted this EKG as follows: EKG interpretation date: 12/13/19 EKG interpretation time: 22:43 Interpretation: Sinus tachycardia at 114 beats a minute, left axis deviation, left anterior fascicular block, no acute ST-T wave changes. Discharge Plan Discharge Patient Disposition: Admitted As Inpatient Admit Provider: Ag Medina Clinical Impression: Acute alteration in mental status, Hyperosmolar hyperglycemic state (HHS) Fever Qualifiers: Fever type: unspecified Qualified Code(s): R50.9 - Fever, unspecified Condition: Stable Referrals: Shannon Earl MD [Primary Care Provider] - Discharge Date/Time: 12/14/19 01:49 Coding Level of Care Code ED Manager Of Human Resources for Chg Fwd Exam Comprehensive
[2019-12-13 20:43] LABS: ABG PCO2 39.9 mmHg (35-45); ABG PH Result 7.45 (7.35-7.45); Arterial Blood Gas Hematocrit 35.1 % (37-47); Base Excess ABG 3.1 mmol/L (-2.0-2.0); Blood Gas Allen Test Pos; Blood Gas Sample Site Brachial, left; Blood Gas Sample Type Arterial; HCO3 ABG 27.4 mmol/L (22-26); Oxygen Device NC; PO2 ABG 82.5 mmHg (80.0-100.0)
[2019-12-13 21:00] LABS: Basophils % 0.2 %; Eosinophils % 0.3 %; Hematocrit 33.1 % (37.0-47.0); Hemoglobin 10.8 g/dL (11.5-15.3); Lymphocytes # 0.1 10^3/uL (0.8-4.8); Lymphocytes % 2.1 %; Mean Corpuscular HGB Conc 32.6 g/dL (30.0-36.0); Mean Corpuscular Hemoglobin 33.2 pg (28.0-34.0); Mean Corpuscular Volume 101.8 fL (81-99); Mean Platelet Volume 10.5 fL (7.4-10.4); Monocytes # 0.4 10^3/uL (0.2-0.9); Monocytes % 5.8 %; Neutrophils # 5.68 10^3/uL (1.8-7.7); Neutrophils % 91.1 %; Nucleated Red Blood Cells % 0 %; Platelet Count 72 10^3/cmm (130-400); Red Blood Count 3.25 10^6/uL (4.1-5.3); Red Cell Distribution Width 14.7 % (12.1-15.1); White Blood Count 6.2 10^3/uL (4.0-10.0)
[2019-12-13 21:15] LABS: Ketone (Acetest) Serum Negative (Negative)
[2019-12-13 21:19] LABS: INR 1.59 (0.8-1.2)
[2019-12-13 21:20] LABS: Partial Thromboplastin Time 35.9 SECONDS (23.9-36.7)
[2019-12-13 21:23] LABS: Troponin(5th) Baseline 43 ng/L (0-10)
[2019-12-13 21:32] LABS: Alanine Aminotransferase 22 U/L (0-33); Albumin Level 3.3 g/dL (3.5-5.2); Alkaline Phosphatase 297 IU/L (35-105); Anion Gap 15.2 (5-19); Aspartate Amino Transferase 22 U/L (0-32); Blood Urea Nitrogen 22 mg/dL (8-23); Calcium 9.7 mg/dL (8.5-10.5); Carbon Dioxide 26 mmol/L (22-29); Chloride 93 mmol/L (98-107); Creatine Phosphokinase 72 U/L (26-192); Free T4 Free Thyroxine 1.16 ng/dL (0.82-1.77); Glomerular Filtration Rate 54.8 mL/min (90-130); Lipase 28 U/L (13-60); Magnesium 1.3 mg/dL (1.7-2.3); Osmolality Calculated 307 mOsm/kg (285-295); Potassium 4.2 mmol/L (3.5-5.1); Sodium 130 mmol/L (136-145); Thyroid Stimulating Hormone 2.77 uIU/mL (0.27-4.20); Total Bilirubin 1.4 mg/dL (0.15-1.2); Total Protein 6.3 g/dL (6.6-8.7)
[2019-12-13 21:36] LABS: Glucose 712 mg/dL (65-115)
[2019-12-13] MEDS: sodium chloride 0.9% 1,000 ML 999 ML IV (21:55)
--- NOTE | 2019-12-13 22:10 | ECG_ITS ---
[facility] Test Date: 2019-12-13 Pat Name: Yesika Sanchez Department: Room: Gender: Female Defect Cutter: : 1950 Requested By: Joanne Zaldivar Order Number: [id number] Mariaa MD: GARCIA WHITE Measurements Intervals Harvey Rate: 114 P: 60 VT: 185 QRS: -65 QRSD: 93 T: 49 QT: 337 QTc: 466 Interpretive Statements SINUS TACHYCARDIA PATTERN CONSISTENT WITH PULMONARY DISEASE LEFT ANTERIOR FASCICULAR BLOCK [QRS AXIS <= -45, QR IN I, RS IN II] Compared to ECG 12/13/2019 20:18:12 Left anterior fascicular block now present Supraventricular tachycardia no longer present Left-axis deviation no longer present Right ventricular hypertrophy no longer present Intraventricular conduction delay no longer present Electronically Signed On 12-14-2019 19:33:45 INDUSTRIAL EQUIPMENT WIRER by GARCIA WHITE [id number]
--- NOTE | 2019-12-13 22:17 | CTR_ITS ---
PROCEDURE INFORMATION: Exam: CT Chest With Contrast Exam date and time: 12/13/2019 10:38 PM Age: 69 years old Clinical indication: Abnormal findings; Abnormal radiologic finding of the abdomen; Radiologic exam and body structure: Chest xray; Abnormal radiologic exam of lung or chest; Prior surgery; Surgery type: Hernia, gb, ; Additional info: Altered mental status, abnormal chest x-ray abd pain TECHNIQUE: Imaging protocol: Computed tomography of the chest with intravenous contrast. Radiation optimization: All CT scans at this facility use at least one of these dose optimization techniques: automated exposure control; mA and/or kV adjustment per patient size (includes targeted exams where dose is matched to clinical indication); or iterative reconstruction. Contrast material: VISI 320; Contrast volume: 95 ml; Contrast route: INTRAVENOUS (IV); COMPARISON: CT angio chest PE protcl [id number] 08/21/2019 6:17 PM RADIATION DOSE METRICS: Total DLP (mGy-cm): 2748.24 FINDINGS: Lungs: Mild dependent atelectasis. The lungs are otherwise clear. Pleural space: Unremarkable. No pneumothorax. No pleural effusion. Heart: Unremarkable. No cardiomegaly. No pericardial effusion. Aorta: Unremarkable. No aortic aneurysm. Lymph nodes: Unremarkable. No enlarged lymph nodes. Bones/joints: Unremarkable. No acute fracture. Soft tissues: Unremarkable. IMPRESSION: 1. No acute findings identified in the chest. PROCEDURE INFORMATION: Exam: CT Abdomen And Pelvis With Contrast Exam date and time: 12/13/2019 10:38 PM Age: 69 years old Clinical indication: Abnormal findings; Abnormal radiologic finding of the abdomen; Radiologic exam and body structure: Chest xray; Abnormal radiologic exam of lung or chest; Prior surgery; Surgery type: Hernia, gb, ; Additional info: Altered mental status, abnormal chest x-ray abd pain TECHNIQUE: Imaging protocol: Computed tomography of the abdomen and pelvis with intravenous contrast. Radiation optimization: All CT scans at this facility use at least one of these dose optimization techniques: automated exposure control; mA and/or kV adjustment per patient size (includes targeted exams where dose is matched to clinical indication); or iterative reconstruction. Contrast material: VISI 320; Contrast volume: 95 ml; Contrast route: INTRAVENOUS (IV); COMPARISON: CT angio chest PE protcl [id number] 08/21/2019 6:17 PM, CT abdomen pelvis 06/20/2017. RADIATION DOSE METRICS: Total DLP (mGy-cm): 2748.24 FINDINGS: Liver: Normal. No mass. Gallbladder and bile ducts: Cholecystectomy. The bile ducts are normal. Pancreas: Normal. No ductal dilation. Spleen: Normal. No splenomegaly. Adrenal glands: Stable benign 2.4 cm indeterminate left adrenal nodule. Kidneys and ureters: Likely benign cysts in both kidneys, Hounsfield units less than 20. No follow-up is recommended. Nonobstructing 4 mm and 3 mm right renal calculi. No hydronephrosis. Stomach and bowel: Mild diverticulosis of the descending colon without diverticulitis. Scattered gas and stool throughout the colon with gas in the rectum. The stomach and small bowel are unremarkable. Appendix: The appendix is normal. Intraperitoneal space: Unremarkable. No free air. No significant fluid collection. Vasculature: Portal venous hypertension with recanalized umbilical vein and peripancreatic and perigastric varices. Lymph nodes: Unremarkable. No enlarged lymph nodes. Urinary bladder: Khan catheter in a decompressed urinary bladder. Reproductive: Unremarkable as visualized. Bones/joints: Degenerative lumbar spine. No compression fracture. Soft tissues: Diastasis rectus with severe atrophy of the anterior abdominal wall muscles. Fat containing lower abdominal ventral hernia. Mild body wall edema. Stable scarring in the lower anterior abdominal wall. CT/CT chest abd pel w con* IMPRESSION: 1. No acute abnormality identified in the abdomen or pelvis. 2. Portal venous hypertension with varices and recanalized umbilical vein. 3. Right renal calculi. 4. Mild diverticulosis of the descending colon. COMMENTS: Consistent with the [employer]'s Incidental Findings Committee white paper (J Am Valentín Radiol 2018): Any incidental renal lesion less than 1 cm or classified as too small to characterize, or any incidental cystic renal lesion characterized as simple-appearing, is likely benign. No follow-up imaging is recommended for these lesions per consensus recommendations based on imaging criteria. Radiation Dose CTDIVOL = (mGy): DLP = 2748.24~2748.24 (mGy-cm)
[2019-12-13] MEDS: dextrose 50% syringe 50 mL 25 ML IVP (22:31)
[2019-12-13 22:44] VITALS: BP 99/52; PULSE 119; RESP 24; O2SAT 96
[2019-12-13 22:47] LABS: Glucose Point of Care > 600 mg/dL (70-110)
[2019-12-13] MEDS: iodixanol 320 mg/mL 100mL Btl IV (23:08)
[2019-12-13 23:20] LABS: Bilirubin Urine Neg (Negative); Blood Urine 2+ (Negative); Glucose Urine UA 4+ (Normal); Ketones Urine Negative (Negative); Leukocyte Esterase Urine Negative (Negative); Nitrate Urine Positive (Negative); Protein Urine Neg (Negative); Urine Appearance Hazy (CLEAR); Urine Color Yellow (Yellow); Urobilinogen Urine Norm (Negative); pH Urine 5 (5-7)
[2019-12-13] MEDS: vancomycin 1,000 MG in sodium chloride 0.9% 250 ML 250 MG IV (23:25)
[2019-12-13 23:29] LABS: Amphetamines Screen Urine Negative (Negative); Barbiturates Screen Urine Negative (Negative); Benzodiazepines Screen Urine Negative (Negative); Cocaine Screen Urine Negative (Negative); Opiate Screen Urine Negative (Negative); PCP Screen Urine Negative (Negative); THC Screen Urine Negative (Negative)
[2019-12-13 23:30] VITALS: BP 139/84; PULSE 112; RESP 22; TEMP 36.6; O2SAT 98
[2019-12-13 23:32] LABS: SARS Covid-2 Antigen Negative (Negative)
[2019-12-13 23:33] LABS: Influenza A by IFA Negative (Negative); Influenza B by IFA Negative (Negative)
[2019-12-13 23:45] VITALS: BP 131/84; PULSE 111; RESP 20; O2SAT 100
[2019-12-13 23:52] LABS: Bacteria Urine 4+ /hpf; RBC Urine 0-4 /hpf (0-2); Squamous Epithelial Cell Urine 0-4 /hpf (0-5); WBC Urine 0-4 /hpf (0-5)
[2019-12-13] MEDS: magnesium sulfate premix 2 GM/50 ML PIGGYBACK IV (23:52)
[2019-12-13 23:53] LABS: Add Urine Culture? Yes
[2019-12-14] VITALS (82 sets, daily range): BP systolic 94–146; BP diastolic 54–93; PULSE 81–117; RESP 18–22; TEMP 36.8–37.1; O2SAT 88–100
[2019-12-14 00:03] LABS: Glucose Point of Care > 600 mg/dL (70-110)
[2019-12-14 00:40] LABS: Glucose Point of Care 524 mg/dL (70-110)
[2019-12-14] MEDS: insulin regular-human 250 UNIT in sodium chloride 0.9% 250 ML 14.1 UNIT IV (00:55)
--- NOTE | 2019-12-14 00:59 | PM.HP ---
Providers/Chief Complaint Primary Care Provider: Shannon Earl MD Chief Complaint: ams History of Present Illness Yesika Sanchez is a 69 year old female with a past medical history, insulin-dependent type 2 stenosis, chronic kidney disease, diabetic peripheral neuropathy, hypertension, Perkins, morbid obesity, has a history of pannus surgery, CAD status post LAD stenting, history of GI bleed secondary to duodenal ulcer, history of ESBL E. coli UTI, history of recurrent UTIs, history of pulmonary emboli, history of DVT, on Eliquis, adrenal insufficiency who presents to [facility] due to altered mental status. During my examination, patient does follow commands, such as squeezing my fingers, wiggling her toes, answer some questions appropriately, but is fairly confused, requires multiple redirections, I tried to reach out to patient's Rashid, however I was not able to get through to family members. Patient has no complaints, she does not know why she is in the hospital, she did note that she is in [facility], there is nothing that is particularly bothering her, denies chest pain, denies shortness of breath, denies fevers, denies chills, denies abdominal pain, denies diarrhea. On admission her blood pressure was 114/60, heart rate 118 sinus tachycardia, T-max 100.8, on 2 L, Khan catheter was placed by ER staff, hemoglobin 10.8, platelet count 72, glucose 712, sodium 130, magnesium 1.3, baseline troponin 43. Review of Systems Const: Denies: fever(s), chills, fatigue or malaise ENMT: Denies: nasal congestion Resp: Denies: dyspnea, productive cough, non-productive cough or wheezing GI: Denies: abdominal pain, nausea, vomiting, hematemesis, diarrhea, constipation, hematochezia or melena : Denies: flank pain, dysuria or urinary frequency Neuro: Denies: headache(s), dizziness or vertigo Medications/Allergies Home Medications Medication Instructions Recorded Confirmed Last Taken Type albuterol sulfate 90 mcg/actuation 2 puff INHALATION Q6H PRN 02/08/19 12/13/19 Unknown History aerosol inhaler cholecalciferol (vitamin D3) 50 2,000 unit PO DAILY tab 04/02/19 12/13/19 08/04/19 History mcg (2,000 unit) tablet lisinopril 5 mg tablet 5 mg PO DAILY #60 tab 05/21/19 12/13/19 08/21/19 Rx diclofenac sodium [Voltaren] 4 gm TOPICAL QID 06/05/19 12/13/19 08/21/19 History nitroglycerin 0.4 mg sublingual 0.4 mg SUBLINGUAL Q5M PRN #20 tab 06/15/19 12/13/19 Unknown Rx tablet insulin aspart U-100 100 unit/mL See Rx Instructions .ROUTE 07/10/19 12/13/19 08/21/19 08:00 Rx subcutaneous solution .COMPLEX #30 ml 8 units loratadine [Claritin] 10 mg PO Q24H PRN 07/25/19 12/13/19 08/21/19 History clopidogrel [Plavix] 75 mg PO DAILY 08/06/19 12/13/19 08/21/19 History [place] Pill 1 cap PO BID 08/21/19 12/13/19 Unknown History cyclobenzaprine 10 mg PO TID PRN 08/21/19 12/13/19 Unknown History multivitamin [Multiple Vitamins] 1 tab PO DAILY 08/21/19 12/13/19 Unknown History nystatin 100,000 unit/gram topical 1 applic TOPICAL BID #60 gm 08/21/19 12/13/19 Unknown Rx powder polyethylene glycol 3350 [Miralax] 17 gm PO DAILY PRN #14 each 08/24/19 12/13/19 Unknown Rx silver sulfadiazine 1 % topical 1 applic TOPICAL BID #50 g 08/27/19 12/13/19 Unknown Rx cream fluticasone propionate 50 2 spray INTRANASAL DAILY #15.8 ml 09/27/19 12/13/19 Unknown Rx mcg/actuation nasal spray,suspension meclizine 25 mg tablet 25 mg PO TID PRN #90 tab 10/03/19 12/13/19 Unknown Rx furosemide 40 mg tablet 80 mg PO DAILY #60 tab 10/16/19 12/13/19 Unknown Rx metoprolol tartrate 25 mg tablet 25 mg PO BID #60 tab 10/16/19 12/13/19 Unknown Rx potassium chloride 20 mEq 40 meq PO BID #120 tab 10/16/19 12/13/19 Unknown Rx tablet,extended release insulin detemir U-100 100 unit/mL See Rx Instructions .ROUTE 10/17/19 12/13/19 Unknown Rx subcutaneous solution .COMPLEX #50 ml sucralfate 1 gram tablet See Rx Instructions .ROUTE 11/02/19 12/13/19 Unknown Rx .COMPLEX #120 tab ferrous gluconate 324 mg (38 mg See Rx Instructions .ROUTE 11/07/19 12/13/19 Unknown Rx iron) tablet .COMPLEX #60 tab apixaban 5 mg tablet See Rx Instructions .ROUTE 11/14/19 12/13/19 Unknown Rx .COMPLEX #60 tab phenazopyridine 100 mg tablet 100 mg PO TID PRN #20 tab 11/21/19 12/13/19 Unknown Rx allopurinol 300 mg tablet See Rx Instructions .ROUTE 11/28/19 12/13/19 Unknown Rx .COMPLEX #60 tab atorvastatin 40 mg tablet See Rx Instructions .ROUTE 11/28/19 12/13/19 Unknown Rx .COMPLEX #30 tab pantoprazole 40 mg tablet,delayed See Rx Instructions .ROUTE 12/12/19 12/13/19 Unknown Rx release .COMPLEX #60 tab nitrofurantoin 100 mg PO BID #60 cap 12/13/19 12/13/19 Unknown Rx monohydrate/macrocrystals 100 mg capsule Allergies Allergy/AdvReac Type Severity Reaction Status Date / Time cephalexin [From Keflex] Allergy Severe ALGY-Rash Verified 10/16/19 15:35 bupropion [From Wellbutrin] Allergy Unknown Unknown Verified 10/16/19 15:35 ciprofloxacin Allergy Unknown Unknown Verified 10/16/19 15:35 fluoxetine [From Prozac] Allergy Unknown Unknown Verified 10/16/19 15:35 gabapentin Allergy Unknown Unknown Verified 10/16/19 15:35 sulindac [From Clinoril] Allergy Unknown unkown Verified 10/16/19 15:35 PFSH Acute PFSH: Medical History Anxiety ASHD (arteriosclerotic heart disease) Back pain CHF (congestive heart failure) CKD (chronic kidney disease) Coronary artery disease DDD (degenerative disc disease) Decreased hearing of both ears Diabetes Diabetic polyneuropathy Duodenal ulcer Dyslipidemia History of GI bleed Hypertension Incarcerated incisional hernia Morbid obesity Morbilliform rash PUD (peptic ulcer disease) Recurrent UTI Vitamin B deficiency Vitamin D deficiency Surgical History H/O esophagogastroduodenoscopy (~06/05/19) H/O hernia repair History of coronary artery stent placement Cardiac cath on 12/13/2016 with stent placement to LAD Hx of section 3 Hx of cholecystectomy Hx of tonsillectomy S/P appendectomy S/P plastic surgery 2019, panniculectomy Family History Mother CAD (coronary artery disease) Other Hypertension Social History Smoking and tobacco status: former smoker Quit status (tobacco): has quit using tobacco Former quit date comment: 2.5 PPD x 40 yrs Alcohol intake: unknown Lives independently: Yes Household members: spouse Housing: House Marital status: Pets and animals: Yes History of recent travel: No Current gender identity: Female Female Reproductive History: Date of last menstrual period: 06/05/19 Vitals/I&O/Wt Last Vital Signs Temp 97.9 F 12/13/19 23:30 Pulse 111 H 12/13/19 23:45 Resp 20 H 12/13/19 23:45 BP 131/84 12/13/19 23:45 Pulse Ox 100 12/13/19 23:45 12/13/19 12/13/19 12/14/19 14:59 22:59 06:59 Intake Total 200 / 200 Balance 200 / 200 Weight last 48 hrs Weight 99.79 kg Physical Exam Const: COMMON NORMALS: no acute distress GENERAL APPEARANCE: cooperative and comfortable ORIENTATION/CONSCIOUSNESS: Yes awake, Yes oriented to person, Yes oriented to place and Yes confused; not oriented to time HENMT: COMMON NORMALS: normocephalic HEAD & SCALP: normocephalic Eye: COMMON NORMALS: Equal, round and reactive pupils present, EOMs intact bilaterally and no papilledema GENERAL EYE: appearance normal, both eyes and all related structures PUPIL: Yes Equal, round and reactive pupils present DIRECT OPHTHALMOSCOPY: Yes no papilledema Neck/C-Spine: COMMON NORMALS: full ROM, no lymphadenopathy, no JVD and Thyroid normal THYROID: Thyroid normal Lymph: LYMPHATIC: no lymphadenopathy noted Resp: COMMON NORMALS: normal respiratory effort, No retractions, No use of accessory muscles and clear to auscultation bilaterally AUSCULTATION: clear to auscultation bilaterally Cardio: COMMON NORMALS: no JVD, regular rate, regular rhythm, S1 normal heart sound present, S2 normal heart sound present, No gallops present (Cardio), No clicks present (Cardio) and No murmurs present (Cardio) RATE: tachycardic RHYTHM: regular rhythm HEART SOUNDS: S1 normal heart sound present and S2 normal heart sound present GI: COMMON NORMALS: Normal to inspection, nondistended, normoactive bowel sounds present, Soft to palpation, non-tender and No hepatosplenomegaly present PALPATION: Yes Soft to palpation and Yes No hepatosplenomegaly present OTHER: Has pannus present, history of bypass surgery Extremity: COMMON NORMALS: normal to inspection, full ROM and no pedal edema Neuro: COMMON NORMALS: patient oriented x3, moves all extremities and no focal motor deficits OTHER: Does not follow a thorough neurologic exam, but does follow basic commands such as opening her eyes, squeezing my fingers bilaterally, wiggling her toes Psych: SPEECH: Yes minimal THOUGHT PROCESS: confused ATTENTION/CONCENTRATION: Yes attention grossly impaired and Yes concentration grossly impaired Urinary Catheter Management^: Khan: Cath Placed During This Visit: yes Reason for Continuing Indwelling Catheter: Accurate Measurement of Urinary Output in Critically Ill Patients Urinary Catheter Date of Insertion: 12/13/19 Urinary Catheter Time of Insertion: 22:00 Data : 12/13/19 20:48 12/13/19 20:48 Micro: Microbiology 12/13/19 20:52 Blood Culture - Preliminary Blood SPECIMEN COLLECTED A&P Assessment and plan (1) Hyperosmolar hyperglycemic state (HHS): -Calculated osmolality 307, blood sugar 712, anion gap 15.2 -Has a history of poorly controlled type 2 diabetes mellitus, insulin-dependent PLAN: -Admit to ICU -Insulin drip -N.p.o. -Blood sugars every 2 hours -BMP every 2 hours -Full code -Eliquis for DVT prophylaxis Status: Acute (2) UTI due to extended-spectrum beta lactamase (ESBL) producing Escherichia coli: -Has a history of ESBL E. coli UTI -Had T-max of 100.8 here in the ER -UA positive for WBCs, RBCs, bacteria -CT of the abdomen negative for obstructive uropathy or pyelonephritis -Start Primaxin for presumed ESBL E. coli UTI, follow urine cultures, follow blood cultures -Yeast in urine, start fluconazole Status: Acute (3) Adrenal insufficiency: -No significant hypotensive episodes, hold off on stress dosing steroids Status: Acute (4) Alkaline phosphatase elevation: Status: Acute (5) Acute kidney injury: Will receive IV hydration Status: Acute (6) PUD (peptic ulcer disease): Hemoglobin 10.8, it has looked the best over the last few months, no reported bloody or black stools Status: Acute (7) DVT (deep venous thrombosis): Continue Eliquis Status: Acute (8) Pulmonary emboli: Continue Eliquis Status: Acute (9) PERKINS (nonalcoholic steatohepatitis): Morbid obesity, platelet count 72, mild transaminitis, CT scan of the abdomen shows portal venous hypertension with varices, Status: Acute (10) Hypertension: Status: Acute Qualifiers: Hypertension type: essential hypertension Qualified Code(s): I10 - Essential (primary) hypertension (11) Vitamin D deficiency: Status: Acute (12) Dyslipidemia: Status: Acute (13) Poorly controlled diabetes mellitus: Status: Acute (14) Thrombocytopenia: Secondary to Perkins Status: Acute (15) Hypomagnesemia: Received magnesium replacement Status: Acute (16) Toxic encephalopathy: Secondary to HHS, UTI Status: Acute (17) NSTEMI (non-ST elevated myocardial infarction): Baseline troponin 43, EKG shows sinus tachycardia, heart rate 114, QTc 466 ms, QRS 93 ms, ND 185 ms, no acute ST-T wave changes No reported chest pain Continue Plavix, statin Monitor for chest pain, telemetry monitoring Status: Acute Attestations Medical Necessity Statement*: Patient course hospitalization, ICU, greater than 2 midnights, for HHS, toxic encephalopathy secondary to hyperglycemia and concerns for ESBL UTI Coding Level of Care Code Acute Mathematics Improvement Teacher for Chg Fwd Diagnoses Hyperosmolar hyperglycemic state (HHS) E11.00; E11.65 UTI due to extended-spectrum beta lactamase (ESBL) producing Escherichia coli N39.0; B96.29; Z16.12 Adrenal insufficiency E27.40 Alkaline phosphatase elevation R74.8 Acute kidney injury N17.9 PUD (peptic ulcer disease) K27.9 DVT (deep venous thrombosis) I82.409 Pulmonary emboli I26.99 PERKINS (nonalcoholic steatohepatitis) K75.81 Hypertension I10 Hypertension type: essential hypertension Vitamin D deficiency E55.9 Dyslipidemia E78.5 Poorly controlled diabetes mellitus E11.65 Thrombocytopenia D69.6 Hypomagnesemia E83.42 Toxic encephalopathy G92 NSTEMI (non-ST elevated myocardial infarction) I21.4
[2019-12-14 01:25] LABS: Blood Urea Nitrogen 22 mg/dL (8-23); Calcium 9.1 mg/dL (8.5-10.5); Carbon Dioxide 23 mmol/L (22-29); Chloride 97 mmol/L (98-107); Glomerular Filtration Rate 70.9 mL/min (90-130); Osmolality Calculated 302 mOsm/kg (285-295); Sodium 130 mmol/L (136-145)
[2019-12-14 01:32] LABS: Glucose 622 mg/dL (65-115)
[2019-12-14 01:44] LABS: Troponin 5 2HR 47.95 ng/L (0-10)
[2019-12-14 02:03] LABS: Glucose Point of Care 505 mg/dL (70-110)
[2019-12-14] MEDS: pantoprazole 40 mg SDV IVP (02:25)
[2019-12-14] MEDS: sodium chloride 0.9% 1,000 ML 100 ML IV (02:26)
--- NOTE | 2019-12-14 02:41 | PC.NURSE ---
Patient arrived to ICU at 0215 from ED. Patient is alert to self and place. NC in place at 2 L O2 sat 100%. Lung sounds are clear in lobes and diminished in bases. Bowel sounds active in all [address] draining appropriately. Bruising noted to left ankle from fall before admission and left and right shoulders. Right inner buttock has a small pustule covered with optifoam. Insulin drip iniated in ED and currently running at 13.3 mL/Hr. V/S are wnl. Call light is within reach. Continue care.
--- NOTE | 2019-12-14 05:30 | PC.NURSE ---
Patient resting in bed at this time and complains of being cold and added blankets to keep patient comfortable. Patient does a alvarado in place and draining appropriately. Insulin drip running per protocol. Verified by another nurse. Patient is more alert at this time and knows self and situation. Denies pain. Continue care.
--- NOTE | 2019-12-14 05:37 | PC.NURSE ---
Uneventful shift. Patient is alert to self and situation. Continue care.
[2019-12-14 06:11] LABS: Glucose Point of Care 465 mg/dL (70-110)
[2019-12-14 06:11] LABS: Glucose Point of Care 504 mg/dL (70-110)
[2019-12-14 06:11] LABS: Glucose Point of Care 425 mg/dL (70-110)
[2019-12-14 06:11] LABS: Glucose Point of Care 483 mg/dL (70-110)
[2019-12-14 06:11] LABS: Glucose Point of Care 479 mg/dL (70-110)
[2019-12-14 07:30] LABS: Glucose Point of Care 365 mg/dL (70-110)
[2019-12-14 08:16] LABS: Glucose Point of Care 344 mg/dL (70-110)
[2019-12-14 08:26] LABS: Lactic Sepsis W/Reflex 2.3 mmol/L (0.5-2.2)
[2019-12-14 08:39] LABS: Blood Urea Nitrogen 18 mg/dL (8-23); Calcium 9.4 mg/dL (8.5-10.5); Carbon Dioxide 27 mmol/L (22-29); Chloride 103 mmol/L (98-107); Glomerular Filtration Rate 70.9 mL/min (90-130); Glucose 383 mg/dL (65-115); NT Pro B Type Natriuretic Pept 709 pg/mL (0-125); Osmolality Calculated 306 mOsm/kg (285-295); Sodium 139 mmol/L (136-145)
[2019-12-14 08:46] LABS: Anion Gap 12.6 (5-19); Potassium 3.6 mmol/L (3.5-5.1)
[2019-12-14 09:10] LABS: Glucose Point of Care 304 mg/dL (70-110)
--- NOTE | 2019-12-14 09:31 | PC.NURSE ---
remains lethargic but awakens very confused and restless at times pulling at iv ects.
[2019-12-14 09:39] LABS: Reflex Lactate Order REFLEX LACTIC ORDERD
[2019-12-14] MEDS: fluticasone nasal spray 16gm Btl 2 SPRAY INTRANASAL (10:03)
[2019-12-14] MEDS: nystatin powder 15 gm Btl 1 APPLIC TOPICAL ×2 (10:03→17:32)
[2019-12-14] MEDS: D5-NS 0.45% + KCL 20 mEq 20 MEQ/1,000 ML BAG 100 MEQ IV ×2 (11:38→20:58)
[2019-12-14 11:46] LABS: Lactic Acid level (Lactate) 2.9 mmol/L (0.5-2.2)
[2019-12-14 11:48] LABS: Alanine Aminotransferase 22 U/L (0-33); Albumin Level 2.7 g/dL (3.5-5.2); Alkaline Phosphatase 222 IU/L (35-105); Aspartate Amino Transferase 24 U/L (0-32); Blood Urea Nitrogen 16 mg/dL (8-23); Calcium 9.5 mg/dL (8.5-10.5); Carbon Dioxide 25 mmol/L (22-29); Chloride 105 mmol/L (98-107); Globulin 3.3 g/dL (1.3-4.6); Glomerular Filtration Rate 82.7 mL/min (90-130); Glucose 147 mg/dL (65-115); Osmolality Calculated 294 mOsm/kg (285-295); Sodium 140 mmol/L (136-145); Total Bilirubin 0.8 mg/dL (0.15-1.2)
[2019-12-14] MEDS: apixaban 5 mg Tablet PO ×2 (12:22→17:31)
[2019-12-14] MEDS: multivitamin therapeutic Tablet 1 TAB PO (12:23)
[2019-12-14] MEDS: cholecalciferol (vitamin D3) 1,000 unit Tablet 2000 UNIT PO (12:24)
[2019-12-14] MEDS: metoprolol tartrate 25 mg Tablet PO ×2 (12:24→17:32)
[2019-12-14] MEDS: atorvastatin 40 mg Tablet PO (12:24)
[2019-12-14] MEDS: allopurinol 300 mg Tablet PO ×2 (12:25→17:31)
[2019-12-14] MEDS: clopidogrel 75 mg Tablet PO (12:25)
[2019-12-14 14:13] LABS: Glucose Point of Care 190 mg/dL (70-110)
[2019-12-14 14:13] LABS: Glucose Point of Care 82 mg/dL (70-110)
[2019-12-14 14:13] LABS: Glucose Point of Care 279 mg/dL (70-110)
[2019-12-14 14:13] LABS: Glucose Point of Care 131 mg/dL (70-110)
[2019-12-14 14:13] LABS: Glucose Point of Care 119 mg/dL (70-110)
[2019-12-14 14:17] LABS: Troponin 5 6HR Delta 14.75 ng/L (0-12)
--- NOTE | 2019-12-14 16:44 | PM.PN ---
Subjective Subjective: Interval history: Overnight labs and H&P reviewed. Patient running insulin drip. Starting to be more awake and alert this morning. Attempting to drink liquids successfully. Now she is more awake she remains confused. Able to correctly tell me her name and place as ICU in [facility] however disoriented to time. States feeling completely weak. Medications: Reviewed: Yes Vitals/I&O/Wt Last Vital Signs Temp 98.2 F 12/14/19 04:00 Pulse 94 12/14/19 16:00 Resp 20 H 12/14/19 08:46 BP 121/65 12/14/19 16:00 Pulse Ox 96 12/14/19 16:00 12/14/19 12/14/19 12/14/19 06:59 14:59 22:59 Intake Total 1696.95 / 1696.95 100 / 100 Output Total 600 / 600 Balance 1096.95 / 1096.95 100 / 100 Weight last 48 hrs Weight 99.79 kg Physical Exam Narrative: EXAM NARRATIVE: GEN: Awake,though lethargic, oriented x2, no acute distress CVS: S1S2 N RS: CTA B/L Abd: Soft, nt/nd , bs+ FOREPART REDUCER: no focal neuro deficits Urinary Catheter Management^: Khan: Cath Placed During This Visit: yes Reason for Continuing Indwelling Catheter: Accurate Measurement of Urinary Output in Critically Ill Patients Urinary Catheter Date of Insertion: 12/13/19 Urinary Catheter Time of Insertion: 22:00 Data : 12/13/19 20:48 12/14/19 11:15 Micro: Microbiology 12/13/19 20:52 Blood Culture - Preliminary Blood SPECIMEN COLLECTED A&P Assessment and plan (1) Hyperosmolar hyperglycemic state (HHS): Anion gap closed this morning insulin drip per DKA/HHS protocol Change fluids to D5 1/2 NS + KCL CMP every 4 hrs FS every hour Status: Acute (2) UTI due to extended-spectrum beta lactamase (ESBL) producing Escherichia coli: -Has a history of ESBL E. coli UTI -Had T-max of 100.8 here in the ER -UA positive for WBCs, RBCs, bacteria -CT of the abdomen negative for obstructive uropathy or pyelonephritis -continue Primaxin for presumed ESBL E. coli UTI, follow urine cultures, follow blood cultures -continue fluconazole Status: Acute (3) Adrenal insufficiency: -No significant hypotensive episodes, hold off on stress dosing steroids Status: Acute (4) Alkaline phosphatase elevation: Status: Acute (5) Acute kidney injury: Will receive IV hydration Status: Acute (6) PUD (peptic ulcer disease): Hemoglobin 10.8, it has looked the best over the last few months, no reported bloody or black stools Status: Acute (7) DVT (deep venous thrombosis): Continue Eliquis Status: Acute (8) Pulmonary emboli: Continue Eliquis Status: Acute (9) WOLFE (nonalcoholic steatohepatitis): Morbid obesity, platelet count 72, mild transaminitis, CT scan of the abdomen shows portal venous hypertension with varices, Status: Acute (10) Hypertension: Status: Acute Qualifiers: Hypertension type: essential hypertension Qualified Code(s): I10 - Essential (primary) hypertension (11) Vitamin D deficiency: Status: Acute (12) Dyslipidemia: Status: Acute (13) Poorly controlled diabetes mellitus: Status: Acute (14) Thrombocytopenia: Secondary to Wolfe Status: Acute (15) Hypomagnesemia: Received magnesium replacement Status: Acute (16) Toxic encephalopathy: Secondary to HHS, UTI Status: Acute (17) NSTEMI (non-ST elevated myocardial infarction): Baseline troponin 43, EKG shows sinus tachycardia, heart rate 114, QTc 466 ms, QRS 93 ms, IN 185 ms, no acute ST-T wave changes No reported chest pain Continue Plavix, statin Monitor for chest pain, telemetry monitoring Status: Acute Attestations Medical Necessity Statement*: HHS, currently on insulin drip, needs improvement in mentation prior to initiating feeding, overlap with s/c insulin Coding Level of Care Code Acute Diversional Therapist'S Assistant for Chg Fwd Diagnoses Hyperosmolar hyperglycemic state (HHS) E11.00; E11.65 UTI due to extended-spectrum beta lactamase (ESBL) producing Escherichia coli N39.0; B96.29; Z16.12 Adrenal insufficiency E27.40 Alkaline phosphatase elevation R74.8 Acute kidney injury N17.9 PUD (peptic ulcer disease) K27.9 DVT (deep venous thrombosis) I82.409 Pulmonary emboli I26.99 WOLFE (nonalcoholic steatohepatitis) K75.81 Hypertension I10 Hypertension type: essential hypertension Vitamin D deficiency E55.9 Dyslipidemia E78.5 Poorly controlled diabetes mellitus E11.65 Thrombocytopenia D69.6 Hypomagnesemia E83.42 Toxic encephalopathy G92 NSTEMI (non-ST elevated myocardial infarction) I21.4
[2019-12-14 17:17] LABS: Glucose Point of Care 125 mg/dL (70-110)
[2019-12-14] MEDS: potassium chloride ER 20 mEq Tablet 60 MEQ PO (17:31)
[2019-12-14 17:43] LABS: Alanine Aminotransferase 22 U/L (0-33); Albumin Level 2.7 g/dL (3.5-5.2); Alkaline Phosphatase 214 IU/L (35-105); Anion Gap 10.4 (5-19); Aspartate Amino Transferase 30 U/L (0-32); Blood Urea Nitrogen 15 mg/dL (8-23); Calcium 9.7 mg/dL (8.5-10.5); Carbon Dioxide 28 mmol/L (22-29); Chloride 102 mmol/L (98-107); Globulin 3.2 g/dL (1.3-4.6); Glomerular Filtration Rate 82.7 mL/min (90-130); Glucose 109 mg/dL (65-115); Osmolality Calculated 285 mOsm/kg (285-295); Potassium 3.4 mmol/L (3.5-5.1); Sodium 137 mmol/L (136-145); Total Bilirubin 0.9 mg/dL (0.15-1.2); Total Protein 5.9 g/dL (6.6-8.7)
[2019-12-14 20:03] LABS: Glucose Point of Care 124 mg/dL (70-110)
--- NOTE | 2019-12-14 23:04 | PC.NURSE ---
2200 Primaxin late due do loss of IV access at this time, awaiting 2nd nurse to attempt
[2019-12-14 23:37] LABS: Alanine Aminotransferase 21 U/L (0-33); Albumin Level 2.7 g/dL (3.5-5.2); Alkaline Phosphatase 220 IU/L (35-105); Aspartate Amino Transferase 31 U/L (0-32); Blood Urea Nitrogen 14 mg/dL (8-23); Calcium 9.8 mg/dL (8.5-10.5); Carbon Dioxide 27 mmol/L (22-29); Chloride 104 mmol/L (98-107); Globulin 3.3 g/dL (1.3-4.6); Glomerular Filtration Rate 70.9 mL/min (90-130); Glucose 141 mg/dL (65-115); Osmolality Calculated 291 mOsm/kg (285-295); Sodium 139 mmol/L (136-145); Total Bilirubin 0.9 mg/dL (0.15-1.2)
[2019-12-15] VITALS (16 sets, daily range): BP systolic 86–118; BP diastolic 51–69; PULSE 75–94; RESP 17–23; TEMP 36.3–36.8; O2SAT 70–99
[2019-12-15] MEDS: pantoprazole 40 mg SDV IVP (01:04)
--- NOTE | 2019-12-15 02:41 | PC.NURSE ---
Primaxin administered ooo1 once IV access to R chest achieved
[2019-12-15 03:04] LABS: Alanine Aminotransferase 21 U/L (0-33); Albumin Level 2.8 g/dL (3.5-5.2); Alkaline Phosphatase 214 IU/L (35-105); Anion Gap 8.8 (5-19); Aspartate Amino Transferase 28 U/L (0-32); Blood Urea Nitrogen 14 mg/dL (8-23); Calcium 9.9 mg/dL (8.5-10.5); Carbon Dioxide 30 mmol/L (22-29); Chloride 104 mmol/L (98-107); Glomerular Filtration Rate 61.9 mL/min (90-130); Glucose 139 mg/dL (65-115); Osmolality Calculated 291 mOsm/kg (285-295); Potassium 3.8 mmol/L (3.5-5.1); Sodium 139 mmol/L (136-145); Total Bilirubin 0.8 mg/dL (0.15-1.2); Total Protein 5.8 g/dL (6.6-8.7)
[2019-12-15 05:20] LABS: Basophils % 0.2 %; Eosinophils # 0.3 10^3/uL (0.0-0.8); Eosinophils % 5.9 %; Hematocrit 34.5 % (37.0-47.0); Lymphocytes # 0.7 10^3/uL (0.8-4.8); Lymphocytes % 13.1 %; Mean Corpuscular HGB Conc 31.9 g/dL (30.0-36.0); Mean Corpuscular Hemoglobin 32.6 pg (28.0-34.0); Mean Corpuscular Volume 102.4 fL (81-99); Mean Platelet Volume 10.9 fL (7.4-10.4); Monocytes # 0.4 10^3/uL (0.2-0.9); Monocytes % 7.8 %; Neutrophils # 3.93 10^3/uL (1.8-7.7); Neutrophils % 72.8 %; Nucleated Red Blood Cells % 0 %; Platelet Count 73 10^3/cmm (130-400); Red Blood Count 3.37 10^6/uL (4.1-5.3); White Blood Count 5.4 10^3/uL (4.0-10.0)
[2019-12-15 05:47] LABS: Lactic Sepsis W/Reflex 1.3 mmol/L (0.5-2.2)
[2019-12-15 06:12] LABS: Estmated Average Glucose 246; Hemoglobin A1C 10.2 % (4.0-6.0)
[2019-12-15 06:14] LABS: Procalcitonin 0.77 ng/mL (0-0.5)
[2019-12-15 06:20] LABS: Alanine Aminotransferase 19 U/L (0-33); Albumin Level 2.8 g/dL (3.5-5.2); Alkaline Phosphatase 210 IU/L (35-105); Aspartate Amino Transferase 27 U/L (0-32); Blood Urea Nitrogen 13 mg/dL (8-23); Calcium 9.5 mg/dL (8.5-10.5); Carbon Dioxide 28 mmol/L (22-29); Chloride 105 mmol/L (98-107); Globulin 2.5 g/dL (1.3-4.6); Glomerular Filtration Rate 70.9 mL/min (90-130); Glucose 143 mg/dL (65-115); Magnesium 1.6 mg/dL (1.7-2.3); Osmolality Calculated 291 mOsm/kg (285-295); Phosphorus 1.6 mg/dL (2.5-4.5); Sodium 139 mmol/L (136-145); Thyroid Stimulating Hormone 3.13 uIU/mL (0.27-4.20); Total Bilirubin 0.7 mg/dL (0.15-1.2); Total Protein 5.3 g/dL (6.6-8.7)
--- NOTE | 2019-12-15 06:25 | NUR.SHIFT ---
Uneventful night, IV to LFA dislodged and required insertion of new 22g to R chest, AO x4, regular unlabored RR RA, no C/O of discomfort or distress throughout shift
[2019-12-15 06:26] LABS: Chol HDL Ratio 2.59 mg/dL (0.0-4.40); Cholesterol 75 mg/dL (0-200); HDL Cholesterol 29 mg/dL (60-100); LDL Cholesterol Calculated 24 mg/dL (50-129); LDL HDL Ratio 0.83 RATIO (0.00-3.22); Triglycerides 108 mg/dL (0-150)
[2019-12-15 07:55] LABS: Glucose Point of Care 149 mg/dL (70-110)
[2019-12-15] MEDS: metoprolol tartrate 25 mg Tablet PO ×2 (08:31→17:16)
[2019-12-15] MEDS: atorvastatin 40 mg Tablet PO (08:31)
[2019-12-15] MEDS: apixaban 5 mg Tablet PO ×2 (08:31→17:16)
[2019-12-15] MEDS: allopurinol 300 mg Tablet PO ×2 (08:31→17:15)
[2019-12-15] MEDS: cholecalciferol (vitamin D3) 1,000 unit Tablet 2000 UNIT PO (08:31)
[2019-12-15] MEDS: clopidogrel 75 mg Tablet PO (08:31)
[2019-12-15] MEDS: multivitamin therapeutic Tablet 1 TAB PO (08:32)
[2019-12-15] MEDS: fluticasone nasal spray 16gm Btl 2 SPRAY INTRANASAL (08:33)
--- NOTE | 2019-12-15 09:03 | PC.NURSE ---
left upper arm noted to be very swollen and seeping fluid. warm compress applied per pharmacy recommendation do to IV infiltration. Meds that were ran infiltrated into tissue are not found to be tissue necrotic.
--- NOTE | 2019-12-15 09:41 | P.PN_ITS ---
Subjective Subjective: Interval history: Patient is showing significant improvement today. She remains off of insulin drip. Able to tolerate p.o. intake now. Subcutaneous insulin has been overlapped. Mental status is much improved today. She is being transferred to the [facility] floor. 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: no focal neuro deficits Urinary Catheter Management^: Khan: Cath Placed During This Visit: yes Reason for Continuing Indwelling Catheter: Accurate Measurement of Urinary Output in Critically Ill Patients Urinary Catheter Date of Insertion: 12/13/19 Urinary Catheter Time of Insertion: 22:00 Data : 12/15/19 04:55 12/15/19 04:55 Micro: Microbiology 12/13/19 22:07 Urine Culture - Preliminary Urine,Clean Catch Gram Negative Rods 12/13/19 20:52 Blood Culture - Preliminary Blood NEGATIVE TO DATE 12/14/19 16:19 Blood Culture - Preliminary Blood SPECIMEN COLLECTED A&P Assessment and plan (1) Hyperosmolar hyperglycemic state (HHS): Anion gap closed Patient is able to tolerate p.o. intake. She has been started on subcutaneous sliding scale insulin for the same. Precipitant may have been UTI. Status: Acute (2) UTI due to extended-spectrum beta lactamase (ESBL) producing Escherichia coli: -Has a history of ESBL E. coli UTI -Had T-max of 100.8 here in the ER -UA positive for WBCs, RBCs, bacteria -CT of the abdomen negative for obstructive uropathy or pyelonephritis -continue Primaxin for presumed ESBL E. coli UTI, follow urine cultures, follow blood cultures -continue fluconazole for now, will likely discontinue upon discharge Status: Acute (3) Adrenal insufficiency: -No significant hypotensive episodes, hold off on stress dosing steroids Status: Acute (4) Alkaline phosphatase elevation: Status: Acute (5) Acute kidney injury: Will receive IV hydration Status: Acute (6) PUD (peptic ulcer disease): Hemoglobin 10.8, it has looked the best over the last few months, no reported bloody or black stools Status: Acute (7) DVT (deep venous thrombosis): Continue Eliquis Status: Acute (8) Pulmonary emboli: Continue Eliquis Status: Acute (9) WOLFE (nonalcoholic steatohepatitis): Morbid obesity, platelet count 72, mild transaminitis, CT scan of the abdomen shows portal venous hypertension with varices, Status: Acute (10) Hypertension: Status: Acute Qualifiers: Hypertension type: essential hypertension Qualified Code(s): I10 - Essential (primary) hypertension (11) Vitamin D deficiency: Status: Acute (12) Dyslipidemia: Status: Acute (13) Poorly controlled diabetes mellitus: Status: Acute (14) Thrombocytopenia: Secondary to Wolfe Status: Acute (15) Hypomagnesemia: Received magnesium replacement Status: Acute (16) Toxic encephalopathy: Secondary to HHS, UTI Status: Acute (17) NSTEMI (non-ST elevated myocardial infarction): Baseline troponin 43, EKG shows sinus tachycardia, heart rate 114, QTc 466 ms, QRS 93 ms, TX 185 ms, no acute ST-T wave changes No reported chest pain Continue Plavix, statin Monitor for chest pain, telemetry monitoring Status: Acute Attestations Medical Necessity Statement*: Patient shows signs of improvement today. [facility] Need for IV antibiotics ongoing. If continues to improve, anticipate discharge in the upcoming 24 hours. Coding Level of Care Code Acute Order Make Up Clerk for [facility] Fwd Diagnoses Hyperosmolar hyperglycemic state (HHS) E11.00; E11.65 UTI due to extended-spectrum beta lactamase (ESBL) producing Escherichia coli N39.0; B96.29; Z16.12 Adrenal insufficiency E27.40 Alkaline phosphatase elevation R74.8 Acute kidney injury N17.9 PUD (peptic ulcer disease) K27.9 DVT (deep venous thrombosis) I82.409 Pulmonary emboli I26.99 WOLFE (nonalcoholic steatohepatitis) K75.81 Hypertension I10 Hypertension type: essential hypertension Vitamin D deficiency E55.9 Dyslipidemia E78.5 Poorly controlled diabetes mellitus E11.65 Thrombocytopenia D69.6 Hypomagnesemia E83.42 Toxic encephalopathy G92 NSTEMI (non-ST elevated myocardial infarction) I21.4
[2019-12-15 11:23] LABS: Glucose Point of Care 268 mg/dL (70-110)
[2019-12-15] MEDS: nystatin powder 15 gm Btl 1 APPLIC TOPICAL (11:36)
[2019-12-15] MEDS: D5-NS 0.45% + KCL 20 mEq 20 MEQ/1,000 ML BAG 100 MEQ IV (14:18)
[2019-12-15 17:02] LABS: Glucose Point of Care 258 mg/dL (70-110)
[2019-12-15] MEDS: acetaminophen 325 mg Tablet 650 MG PO ×2 (17:15→21:09)
[2019-12-15] MEDS: cyclobenzaprine 10 mg Tablet PO (17:15)
[2019-12-15 21:17] LABS: Glucose Point of Care 332 mg/dL (70-110)
[2019-12-16] VITALS (7 sets, daily range): BP systolic 104–120; BP diastolic 62–73; PULSE 80–89; RESP 16–20; TEMP 36.4–37.1; O2SAT 94–98
[2019-12-16] MEDS: cyclobenzaprine 10 mg Tablet PO (00:10)
[2019-12-16] MEDS: D5-NS 0.45% + KCL 20 mEq 20 MEQ/1,000 ML BAG 100 MEQ IV (01:10)
[2019-12-16] MEDS: pantoprazole 40 mg SDV IVP (01:11)
[2019-12-16 05:52] LABS: Basophils % 0.3 %; Eosinophils # 0.3 10^3/uL (0.0-0.8); Eosinophils % 7.3 %; Hematocrit 31.9 % (37.0-47.0); Hemoglobin 10.1 g/dL (11.5-15.3); Lymphocytes # 0.7 10^3/uL (0.8-4.8); Lymphocytes % 17.3 %; Mean Corpuscular HGB Conc 31.7 g/dL (30.0-36.0); Mean Corpuscular Hemoglobin 32.5 pg (28.0-34.0); Mean Corpuscular Volume 102.6 fL (81-99); Mean Platelet Volume 10.8 fL (7.4-10.4); Monocytes # 0.4 10^3/uL (0.2-0.9); Monocytes % 10.2 %; Neutrophils # 2.47 10^3/uL (1.8-7.7); Neutrophils % 64.9 %; Nucleated Red Blood Cells % 0 %; Platelet Count 68 10^3/cmm (130-400); Red Blood Count 3.11 10^6/uL (4.1-5.3); White Blood Count 3.8 10^3/uL (4.0-10.0)
[2019-12-16 06:11] LABS: Lactic Sepsis W/Reflex 1.1 mmol/L (0.5-2.2)
[2019-12-16 06:15] LABS: Alanine Aminotransferase 20 U/L (0-33); Albumin Level 2.6 g/dL (3.5-5.2); Alkaline Phosphatase 228 IU/L (35-105); Aspartate Amino Transferase 28 U/L (0-32); Blood Urea Nitrogen 15 mg/dL (8-23); Calcium 9.1 mg/dL (8.5-10.5); Carbon Dioxide 24 mmol/L (22-29); Chloride 101 mmol/L (98-107); Globulin 2.5 g/dL (1.3-4.6); Glomerular Filtration Rate 70.9 mL/min (90-130); Glucose 349 mg/dL (65-115); Magnesium 1.4 mg/dL (1.7-2.3); Osmolality Calculated 287 mOsm/kg (285-295); Phosphorus 2.4 mg/dL (2.5-4.5); Sodium 131 mmol/L (136-145); Total Bilirubin 0.8 mg/dL (0.15-1.2); Total Protein 5.1 g/dL (6.6-8.7)
[2019-12-16 06:16] LABS: INR 1.26 (0.8-1.2)
[2019-12-16 06:27] LABS: Glucose Point of Care 327 mg/dL (70-110)
[2019-12-16 06:32] LABS: Anion Gap 10.4 (5-19); Potassium 4.4 mmol/L (3.5-5.1)
[2019-12-16] MEDS: atorvastatin 40 mg Tablet PO (08:35)
[2019-12-16] MEDS: cholecalciferol (vitamin D3) 1,000 unit Tablet 2000 UNIT PO (08:35)
[2019-12-16] MEDS: metoprolol tartrate 25 mg Tablet PO (08:35)
[2019-12-16] MEDS: apixaban 5 mg Tablet PO (08:35)
[2019-12-16] MEDS: allopurinol 300 mg Tablet PO (08:35)
[2019-12-16] MEDS: multivitamin therapeutic Tablet 1 TAB PO (08:35)
[2019-12-16] MEDS: clopidogrel 75 mg Tablet PO (08:35)
[2019-12-16] MEDS: fluticasone nasal spray 16gm Btl 2 SPRAY INTRANASAL (09:50)
[2019-12-16 11:15] LABS: Procalcitonin 0.53 ng/mL (0-0.5)
[2019-12-16 11:40] LABS: Glucose Point of Care 394 mg/dL (70-110)
--- NOTE | 2019-12-16 15:25 | PM.DCS ---
Discharge Providers Date of Admission: 12/14/19 00:53 Date of Discharge: December 16, 2019 Attending Provider at Admission: Ag Medina MD Attending Provider at Discharge: Katya Olguin MD Primary Care Provider: Shannon Earl MD Diagnoses at Discharge Discharge Diagnosis (1) Hyperosmolar hyperglycemic state (HHS): Status: Acute (2) UTI due to extended-spectrum beta lactamase (ESBL) producing Escherichia coli: Status: Acute (3) Adrenal insufficiency: Status: Acute Permanent problem details: Test done on August 23, 2019: COSYN BASE 2.11 Col: 08/23/19 1452 COSYN 30 10.11 Col: 08/23/19 1625 COSYN 60 12.40 Col: 08/23/19 1650 (4) Alkaline phosphatase elevation: Status: Acute (5) Acute kidney injury: Status: Acute (6) PUD (peptic ulcer disease): Status: Acute (7) DVT (deep venous thrombosis): Status: Acute (8) Pulmonary emboli: Status: Acute (9) PERKINS (nonalcoholic steatohepatitis): Status: Acute (10) Hypertension: Status: Acute Qualifiers: Hypertension type: essential hypertension Qualified Code(s): I10 - Essential (primary) hypertension (11) Vitamin D deficiency: Status: Acute (12) Dyslipidemia: Status: Acute (13) Poorly controlled diabetes mellitus: Status: Acute (14) Thrombocytopenia: Status: Acute (15) Hypomagnesemia: Status: Acute (16) Toxic encephalopathy: Status: Acute (17) NSTEMI (non-ST elevated myocardial infarction): Status: Acute Reason for Visit Reason for Visit: [facility] Hospital Course Discharge Summary: Yesika Sanchez is a 69 year old female with a past medical history, insulin-dependent type 2 stenosis, chronic kidney disease, diabetic peripheral neuropathy, hypertension, Perkins, morbid obesity, has a history of pannus surgery, CAD status post LAD stenting, history of GI bleed secondary to duodenal ulcer, history of ESBL E. coli UTI, history of recurrent UTIs, history of pulmonary emboli, history of DVT, on Eliquis, adrenal insufficiency who presented to [facility] due to altered mental status. She was found to have hyperosmolar hyperglycemic state with blood sugar greater than 712 and an elevated anion gap. She was admitted to the ICU and started on an insulin drip. She is recovered very well with the above intervention and in less than 24 hours her mental status was back to her baseline. She was also found to have a UTI with E. coli. She was treated with Primaxin as an inpatient. This is being transitioned to Augmentin upon discharge based on susceptibility patterns. Patient is feeling well, back to baseline. 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: no focal neuro deficits Urinary Catheter Management^: Khan: Cath Placed During This Visit: yes Reason for Continuing Indwelling Catheter: Accurate Measurement of Urinary Output in Critically Ill Patients Urinary Catheter Date of Insertion: 12/13/19 Urinary Catheter Time of Insertion: 22:00 Discharge Data Data Completed and Pending: Completed Studies During Hospitalization Category Date Time Status CT cervical spin wo con* [id number] Urge nt Cat Scan 12/13/19 20:[address] chest abd pel w con* Stat Cat Scan 12/13/19 22:[address] head wo con* [id number] Stat Cat Scan 12/13/19 20:07 Completed XR chest 1V ophelia ble [id number] Stat Exams 12/13/19 20:08 Completed Pending at discharge Category Date Time Status Blood Culture Sta t Lab 12/13/19 20:08 Results Complete Blood Co unt w/Auto AM LABS Lab 12/17/19 04:00 Ordered Comprehensive Met abolic Panel AM LA BS Lab 12/17/19 04:00 Ordered Lactic Sepsis W/R eflex AM LABS Lab 12/17/19 04:00 Ordered Magnesium AM LABS Lab 12/17/19 04:00 Ordered Phosphorus AM LAB S Lab 12/17/19 04:00 Ordered Procalcitonin AM LABS Lab 12/17/19 04:00 Ordered Prothrombin Time INR AM LABS Lab 12/17/19 04:00 Ordered Labs from last 24 hours 12/16/19 12/16/19 12/16/19 11:37 06:19 05:33 WBC RBC Hgb Hct MCV MCH MCHC RDW Plt Count MPV Neut % (Auto) Lymph % (Auto) [place] % (Auto) Eos % (Auto) Baso % (Auto) Neut # (Auto) Lymph # (Auto) [place] # (Auto) Eos # (Auto) Baso # (Auto) Nucleated RBC % (a uto) Nucleated RBCs # PT INR Sodium Potassium Chloride Carbon Dioxide Anion Gap BUN Creatinine GFR Calculation Glucose POC Glucose 394 327 Calculated Osmolal ity Lactic Acid Calcium Phosphorus Magnesium Total Bilirubin AST ALT Alkaline Phosphata se Total Protein Albumin Globulin Procalcitonin 0.53 H 12/16/19 12/16/19 12/16/19 05:33 05:33 05:33 WBC RBC Hgb Hct MCV MCH MCHC RDW Plt Count MPV Neut % (Auto) Lymph % (Auto) [place] % (Auto) Eos % (Auto) Baso % (Auto) Neut # (Auto) Lymph # (Auto) [place] # (Auto) Eos # (Auto) Baso # (Auto) Nucleated RBC % (a uto) Nucleated RBCs # PT 16.30 H INR 1.26 H Sodium 131 L Potassium 4.4 Chloride 101 Carbon Dioxide 24 Anion Gap 10.4 BUN 15 Creatinine 0.8 GFR Calculation 70.9 L Glucose 349 H POC Glucose Calculated Osmolal ity 287 Lactic Acid 1.1 Calcium 9.1 Phosphorus 2.4 L Magnesium 1.4 L Total Bilirubin 0.8 AST 28 ALT 20 Alkaline Phosphata se 228 H Total Protein 5.1 L Albumin 2.6 L Globulin 2.5 Procalcitonin 12/16/19 12/15/19 12/15/19 05:33 20:55 16:33 WBC 3.8 L RBC 3.11 L Hgb 10.1 L Hct 31.9 L MCV 102.6 H MCH 32.5 MCHC 31.7 RDW 15.0 Plt Count 68 L MPV 10.8 H Neut % (Auto) 64.9 Lymph % (Auto) 17.3 [place] % (Auto) 10.2 Eos % (Auto) 7.3 Baso % (Auto) 0.3 Neut # (Auto) 2.47 Lymph # (Auto) 0.7 L [place] # (Auto) 0.4 Eos # (Auto) 0.3 Baso # (Auto) 0.0 Nucleated RBC % (a uto) 0 Nucleated RBCs # 0.0 PT INR Sodium Potassium Chloride Carbon Dioxide Anion Gap BUN Creatinine GFR Calculation Glucose POC Glucose 332 258 Calculated Osmolal ity Lactic Acid Calcium Phosphorus Magnesium Total Bilirubin AST ALT Alkaline Phosphata se Total Protein Albumin Globulin Procalcitonin Vitals: Last Vital Signs Temp 97.6 F 12/16/19 11:24 Pulse 89 11/08/20 11:24 Resp 20 H 12/16/19 11:24 BP 120/66 12/16/19 11:24 Pulse Ox 96 12/16/19 11:24 Discharge Plan Discharge Patient Disposition: Home Condition: Stable Prescriptions: New amoxicillin-pot clavulanate [Augmentin] 875-125 mg tablet 1 tab PO BID 3 Days Qty: 6 RF: 0 tramadol 50 mg tablet 50 mg PO Q12H PRN (Reason: pain) Qty: 10 RF: 0 Continued albuterol sulfate [Ventolin HFA] 90 mcg/actuation HFA aerosol inhaler 2 puff INHALATION Q6H PRN (Reason: Shortness Of Breath) RF: 0 cholecalciferol (vitamin D3) 2,000 unit tablet 2,000 unit PO DAILY RF: 0 phenazopyridine [Pyridium] 100 mg tablet 100 mg PO TID PRN (Reason: pain) Qty: 20 RF: 0 lisinopril 5 mg tablet 5 mg PO DAILY Qty: 60 RF: 0 nitroglycerin [Nitrostat] 0.4 mg tablet, sublingual 0.4 mg SUBLINGUAL Q5M PRN (Reason: Chest Pain) Qty: 20 RF: 3 insulin aspart U-100 [Novolog U-100 Insulin aspart] 100 unit/mL solution See Rx Instructions .ROUTE .COMPLEX Qty: 30 RF: 3 nystatin 100,000 unit/gram powder 1 applic TOPICAL BID Qty: 60 RF: 2 silver sulfadiazine 1 % cream 1 applic topical BID Qty: 50 RF: 0 fluticasone propionate 50 mcg/actuation spray,suspension 2 spray INTRANASAL DAILY Qty: 15.8 RF: 2 meclizine 25 mg tablet 25 mg PO TID PRN (Reason: Dizziness) Qty: 90 RF: 2 potassium chloride 20 mEq tablet extended release 40 meq PO BID Qty: 120 RF: 3 metoprolol tartrate 25 mg tablet 25 mg PO BID Qty: 60 RF: 4 furosemide [Lasix] 40 mg tablet 80 mg PO DAILY Qty: 60 RF: 4 Levemir U-100 Insulin 100 unit/mL solution See Rx Instructions .ROUTE .COMPLEX Qty: 50 RF: 3 sucralfate 1 gram tablet See Rx Instructions .ROUTE .COMPLEX Qty: 120 RF: 3 ferrous gluconate 324 mg (38 mg iron) tablet See Rx Instructions .ROUTE .COMPLEX Qty: 60 RF: 1 apixaban [Eliquis] 5 mg tablet See Rx Instructions .ROUTE .COMPLEX Qty: 60 RF: 0 allopurinol 300 mg tablet See Rx Instructions .ROUTE .COMPLEX Qty: 60 RF: 5 atorvastatin 40 mg tablet See Rx Instructions .ROUTE .COMPLEX Qty: 30 RF: 5 pantoprazole 40 mg tablet,delayed release (DR/EC) See Rx Instructions .ROUTE .COMPLEX Qty: 60 RF: 5 multivitamin [Multiple Vitamins] Tablet 1 tab PO DAILY RF: 0 [place] Pill 1 cap PO BID RF: 0 cyclobenzaprine 10 mg tablet 10 mg PO TID PRN (Reason: unknown) RF: 0 polyethylene glycol 3350 [Miralax] 17 gram powder in packet 17 gm PO DAILY PRN (Reason: constipation) Qty: 14 RF: 0 diclofenac sodium [Voltaren] 1 % gel 4 gm TOPICAL QID RF: 0 loratadine [Claritin] 10 mg tablet 10 mg PO Q24H PRN (Reason: Allergy Symptoms) RF: 0 clopidogrel [Plavix] 75 mg Tablet 75 mg PO DAILY RF: 0 Discontinued nitrofurantoin monohyd/m-cryst [Macrobid] 100 mg capsule 100 mg PO BID Qty: 60 RF: 0 Discharge Orders: Discharge Order (Routine); Ordered 12/16/19 Ordered By: Katya Olguin Referrals: Shannon Earl MD [Primary Care Provider] - 4-7 days (please call [facility] and schedule an appointment with Dr. Earl within 7 days. [phone]) Discharge Diet: Diabetic Discharge Activity: Resume usual activity and Use walker/crutches as instructed Patient Instructions: Nitrofurantoin Combination (By mouth), Hypomagnesemia (DC), Altered Mental Status (GEN), Thrombocytopenia (DC) Discharge Date/Time: 12/16/19 15:30 Discharge Attestations Time Spent in Discharge Care*: greater than 30 min Status at Discharge: Cognitive status at discharge: cognitively intact, Behavioral status at discharge: cooperative, Quality Metrics Clinical Quality Measures During this hospital stay, did patient experience: None Coding Level of Care Code Acute Java 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 User Interface 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 for [facility] Fwd Diagnoses Hyperosmolar hyperglycemic state (HHS) E11.00; E11.65 UTI due to extended-spectrum beta lactamase (ESBL) producing Escherichia coli N39.0; B96.29; Z16.12 Adrenal insufficiency E27.40 Alkaline phosphatase elevation R74.8 Acute kidney injury N17.9 PUD (peptic ulcer disease) K27.9 DVT (deep venous thrombosis) I82.409 Pulmonary emboli I26.99 PERKINS (nonalcoholic steatohepatitis) K75.81 Hypertension I10 Hypertension type: essential hypertension Vitamin D deficiency E55.9 Dyslipidemia E78.5 Poorly controlled diabetes mellitus E11.65 Thrombocytopenia D69.6 Hypomagnesemia E83.42 Toxic encephalopathy G92 NSTEMI (non-ST elevated myocardial infarction) I21.4
--- NOTE | 2019-12-16 15:28 | PC.NURSE ---
iv taken out and intact. discharge instruction explained and questions answered. pt taken to er entrance via wheelchair.
== END 2019-12-16 15:30 | disposition home or self-care (01) | DRG 637 ==
LOC: ER 12-14 00:28 → ICU 12-14 01:13 → MEDSURG 12-15 13:17
PROVIDERS: Admitting Provider Family Medicine; Emergency Provider Emergency Medicine; PCP Family Medicine; Visit Provider Student in an Organized Health Care Education/Training Program
DX: E11.00 Type 2 diabetes mellitus with hyperosmolarity without nonketotic hyperglycemic-hyperosmolar coma (NKHHC) (principal); I21.4 Non-ST elevation (NSTEMI) myocardial infarction; G92 Toxic encephalopathy; I13.0 Hypertensive heart and chronic kidney disease with heart failure and stage 1 through stage 4 chronic kidney disease, or unspecified chronic kidney disease; E27.40 Unspecified adrenocortical insufficiency; N39.0 Urinary tract infection, site not specified; E11.65 Type 2 diabetes mellitus with hyperglycemia; E11.22 Type 2 diabetes mellitus with diabetic chronic kidney disease; E11.42 Type 2 diabetes mellitus with diabetic polyneuropathy; N18.9 Chronic kidney disease, unspecified; Z79.4 Long term (current) use of insulin; K75.81 Nonalcoholic steatohepatitis (NASH); E66.01 Morbid (severe) obesity due to excess calories; Z68.36 Body mass index [BMI] 36.0-36.9, adult; I25.10 Atherosclerotic heart disease of native coronary artery without angina pectoris; Z95.5 Presence of coronary angioplasty implant and graft; Z87.11 Personal history of peptic ulcer disease; Z87.440 Personal history of urinary (tract) infections; Z86.718 Personal history of other venous thrombosis and embolism; Z86.711 Personal history of pulmonary embolism; Z79.01 Long term (current) use of anticoagulants; F41.9 Anxiety disorder, unspecified; M54.9 Dorsalgia, unspecified; E53.9 Vitamin B deficiency, unspecified; Z87.891 Personal history of nicotine dependence; B96.20 Unspecified Escherichia coli [E. coli] as the cause of diseases classified elsewhere; Z79.02 Long term (current) use of antithrombotics/antiplatelets; Z79.51 Long term (current) use of inhaled steroids; M19.90 Unspecified osteoarthritis, unspecified site; E83.42 Hypomagnesemia; D69.6 Thrombocytopenia, unspecified
CPT/HCPCS: 12345; 36415; 36416; 36600; 51702; 70450; 71045; 71260; 72125; 74177; 80048; 80053; 80061; 80306; 81001; 81003; 82009; 82550; 82803; 82962; 83036; 83605; 83690; 83735; 83880; 84100; 84145; 84439; 84443; 84484; 85025; 85610; 85730; 87040; 87077; 87086; 87184; 87186; 87426; 87804; 93005; 96372; 96375; 99284; C9113; J0131; J0743; J1815; J3370; J3475; J7030; J7050; Q9967

== ENCOUNTER → 2019-12-26 14:53 | Outpatient (BNVA) | payer MEDICARE, MEDICAID, SELFPAY | PROVIDERS: PCP Family Medicine; Visit Provider Family Medicine | DX: B96.29 Other Escherichia coli [E. coli] as the cause of diseases classified elsewhere (principal); N39.0 Urinary tract infection, site not specified; Z16.12 Extended spectrum beta lactamase (ESBL) resistance; E11.65 Type 2 diabetes mellitus with hyperglycemia; R25.2 Cramp and spasm; Z09 Encounter for follow-up examination after completed treatment for conditions other than malignant neoplasm; Z79.4 Long term (current) use of insulin; M54.9 Dorsalgia, unspecified; B37.0 Candidal stomatitis | CPT/HCPCS: 36416; 80048; 81000; 82962; 87086 ==

== ENCOUNTER → 2020-02-25 15:59 | Outpatient (BNVA) | payer MEDICARE, MEDICAID, SELFPAY | PROVIDERS: PCP Family Medicine; Visit Provider Nurse Practitioner Family | DX: M25.562 Pain in left knee (principal); M79.641 Pain in right hand; M25.50 Pain in unspecified joint; M17.12 Unilateral primary osteoarthritis, left knee; M11.262 Other chondrocalcinosis, left knee; M81.6 Localized osteoporosis [Lequesne] | CPT/HCPCS: 73130; 73562; 80053; 85651; 86038; 86140; 86431 ==

== ENCOUNTER 2020-03-12 06:00 | Outpatient (RCR) | payer MEDICARE, MEDICAID, SELFPAY | END 2020-04-06 23:59 | disposition home or self-care (01) | LOC: TPT 06:00 | PROVIDERS: PCP Family Medicine; Referring Provider Nurse Practitioner Family; Visit Provider Nurse Practitioner Family | DX: M79.641 Pain in right hand (principal); M79.642 Pain in left hand | CPT/HCPCS: 97110; 97140; 97161 ==

== ENCOUNTER 2020-04-02 06:00 | Outpatient (RCR) | payer MEDICARE, MEDICAID, SELFPAY | END 2020-04-06 23:59 | disposition home or self-care (01) | LOC: TOT 06:00 | PROVIDERS: PCP Family Medicine; Referring Provider Nurse Practitioner Family; Visit Provider Nurse Practitioner Family | DX: M79.641 Pain in right hand (principal); M79.642 Pain in left hand | CPT/HCPCS: 97165 ==

== ENCOUNTER → 2020-04-02 12:19 | Outpatient (BNVA) | payer MEDICARE, MEDICAID, SELFPAY | PROVIDERS: PCP Family Medicine; Visit Provider Nurse Practitioner Family | DX: E55.9 Vitamin D deficiency, unspecified (principal); E11.65 Type 2 diabetes mellitus with hyperglycemia; Z79.4 Long term (current) use of insulin | CPT/HCPCS: 80053; 80061; 81003; 82306; 82607; 83036; 83735; 84443; 85025 ==

== ENCOUNTER 2020-04-07 06:00 | Outpatient (RCR) | payer MEDICARE, MEDICAID, SELFPAY | END 2020-05-07 23:59 | disposition home or self-care (01) | LOC: TPT 06:00 | PROVIDERS: PCP Family Medicine; Referring Provider Nurse Practitioner Family; Visit Provider Nurse Practitioner Family | DX: M79.641 Pain in right hand (principal); M79.642 Pain in left hand | CPT/HCPCS: 87077; 87086; 87184; 97110; 97140 ==

== ENCOUNTER 2020-04-07 06:00 | Outpatient (RCR) | payer MEDICARE, MEDICAID, SELFPAY | END 2020-05-07 23:59 | disposition home or self-care (01) | LOC: TOT 06:00 | PROVIDERS: PCP Family Medicine; Referring Provider Nurse Practitioner Family; Visit Provider Nurse Practitioner Family | DX: M79.641 Pain in right hand (principal); M79.642 Pain in left hand | CPT/HCPCS: 97035; 97110 ==

== ENCOUNTER → 2020-04-16 12:16 | Outpatient (BNVA) | payer MEDICARE, MEDICAID, SELFPAY | PROVIDERS: PCP Family Medicine; Visit Provider Nurse Practitioner Family | DX: L03.115 Cellulitis of right lower limb (principal); S81.801A Unspecified open wound, right lower leg, initial encounter; X58.XXXA Exposure to other specified factors, initial encounter; F17.211 Nicotine dependence, cigarettes, in remission | CPT/HCPCS: 87070 ==

== ENCOUNTER 2020-04-22 14:09 | Outpatient (CLI) | payer MEDICARE, MEDICAID, SELFPAY | END 2020-04-22 14:10 | disposition home or self-care (01) | LOC: WOUND 14:10 | PROVIDERS: PCP Family Medicine; Visit Provider Thoracic Surgery (Cardiothoracic Vascular Surgery) | DX: E11.622 Type 2 diabetes mellitus with other skin ulcer (principal); L97.821 Non-pressure chronic ulcer of other part of left lower leg limited to breakdown of skin; L97.811 Non-pressure chronic ulcer of other part of right lower leg limited to breakdown of skin; T25.222A Burn of second degree of left foot, initial encounter; X12.XXXA Contact with other hot fluids, initial encounter | CPT/HCPCS: 97597; 97598; G0463 ==

== ENCOUNTER 2020-04-29 11:44 | Outpatient (CLI) | payer MEDICARE, MEDICAID, SELFPAY | END 2020-04-29 11:45 | disposition home or self-care (01) | LOC: WOUND 11:45 | PROVIDERS: PCP Family Medicine; Visit Provider Thoracic Surgery (Cardiothoracic Vascular Surgery) | DX: E11.622 Type 2 diabetes mellitus with other skin ulcer (principal); L97.829 Non-pressure chronic ulcer of other part of left lower leg with unspecified severity; T25.222D Burn of second degree of left foot, subsequent encounter; X12.XXXD Contact with other hot fluids, subsequent encounter; L97.819 Non-pressure chronic ulcer of other part of right lower leg with unspecified severity; I96 Gangrene, not elsewhere classified; Z87.891 Personal history of nicotine dependence | CPT/HCPCS: 11042; 11045; L3260 ==

== ENCOUNTER 2020-05-06 13:59 | Outpatient (CLI) | payer MEDICARE, MEDICAID, SELFPAY | END 2020-05-06 14:00 | disposition home or self-care (01) | LOC: WOUND 14:03 | PROVIDERS: PCP Family Medicine; Visit Provider Thoracic Surgery (Cardiothoracic Vascular Surgery) | DX: E11.621 Type 2 diabetes mellitus with foot ulcer (principal); L97.522 Non-pressure chronic ulcer of other part of left foot with fat layer exposed | CPT/HCPCS: 11042; 11045 ==

== ENCOUNTER 2020-05-13 10:24 | Outpatient (CLI) | payer MEDICARE, MEDICAID, SELFPAY | END 2020-05-13 10:25 | disposition home or self-care (01) | LOC: WOUND 10:26 | PROVIDERS: PCP Family Medicine; Visit Provider Thoracic Surgery (Cardiothoracic Vascular Surgery) | DX: E11.621 Type 2 diabetes mellitus with foot ulcer (principal); L97.522 Non-pressure chronic ulcer of other part of left foot with fat layer exposed | CPT/HCPCS: 11042; 11045 ==

== ENCOUNTER 2020-05-15 03:09 | Emergency (ER) | payer MEDICARE, MEDICAID, SELFPAY ==
[2020-05-15] VITALS (8 sets, daily range): BP systolic 106–130; BP diastolic 59–69; PULSE 67–96; RESP 16–18; TEMP 36.6; O2SAT 94–100; BMI 36.9
--- NOTE | 2020-05-15 03:16 | CTR_ITS ---
PROCEDURE INFORMATION: Exam: CT Lumbar Spine Without Contrast Exam date and time: 05/15/2020 3:18 AM Age: 70 years old Clinical indication: Injury or trauma; Blunt trauma (contusions or hematomas); Patient HX: Fall at home. Sustained blow to head and landed on floor. C/O head, neck, rib, right shoulder, and abd pain. Best positioning possible due to patient body habitus and inability to raise arms above head. Unable to remove rings from fingers. TECHNIQUE: Imaging protocol: Computed tomography images of the lumbar spine without contrast. Radiation optimization: All CT scans at this facility use at least one of these dose optimization techniques: automated exposure control; mA and/or kV adjustment per patient size (includes targeted exams where dose is matched to clinical indication); or iterative reconstruction. COMPARISON: [place] [id number] 12/13/2016 3:13 PM RADIATION DOSE METRICS: Total DLP (mGy-cm): 1379.63 FINDINGS: Vertebrae: No acute fracture. Stable mild anterior wedging of L1. Still no pars defect. Interval worsening of the slight retrolisthesis at L3-L4 and L4-L5. Continued minimal retrolisthesis at L2-L3. Discs/Spinal canal/Neural foramina: Continued prominent degeneration of the 3 lowest lumbar discs. Degeneration of multiple facet joints still present. Marked canal stenosis at L4-L5 now apparent questionably representing interval worsening. No new significant canal stenosis. Continued significant bilateral foraminal narrowing at the 3 lowest lumbar disc levels. Soft tissues: No acute finding. CT/CT lumbar spine wo con* [id number] IMPRESSION: 1. No acute fracture. Stable mild L1 compression fracture. 2. Interval worsening of some of the malalignments. Multilevel degenerative disease still present as detailed above; interval worsening of the marked canal stenosis at L4-L5 not excluded. Radiation Dose CTDIVOL = (mGy): DLP = 1379.63 (mGy-cm)
--- NOTE | 2020-05-15 03:16 | XR_ITS ---
WS: [id number] Portable AP supine chest, 05/15/2020 Clinical Data: fall Comparison: Portable chest, 12/13/2019. Findings: No nodules, masses or effusions are seen. The heart is normal. The pulmonary vascularity is not increased. No pneumonia or pneumothorax is seen. The patient is rotated. The aortic arch and shivam cending aorta show calcification and tortuosity. There is irregularity of the right greater tuberosit y. XR/XR chest 1V portable [id number] Impression: Atherosclerosis.
--- NOTE | 2020-05-15 03:16 | CTR_ITS ---
PROCEDURE INFORMATION: Exam: CT Head Without Contrast Exam date and time: 05/15/2020 3:18 AM Age: 70 years old Clinical indication: Injury or trauma; Blunt trauma (contusions or hematomas); Patient HX: Fall at home. Sustained blow to head and landed on floor. C/O head, neck, rib, right shoulder, and abd pain. Best positioning possible due to patient body habitus and inability to raise arms above head. Unable to remove rings from fingers. TECHNIQUE: Imaging protocol: Computed tomography of the head without contrast. Radiation optimization: All CT scans at this facility use at least one of these dose optimization techniques: automated exposure control; mA and/or kV adjustment per patient size (includes targeted exams where dose is matched to clinical indication); or iterative reconstruction. COMPARISON: CT head wo con* [id number] 12/13/2019 8:56 PM RADIATION DOSE METRICS: Total DLP (mGy-cm): 969.38 FINDINGS: Brain: No acute infarct or hemorrhage. There is mild parenchymal atrophy and chronic small vessel disease. Cerebral ventricles: No ventriculomegaly. Bones/joints: No calvarial or skull base fracture. Paranasal sinuses: Paranasal sinuses are clear. No air-fluid level. Mastoid air cells: Visualized mastoid air cells are clear. Soft tissues: Unremarkable. CT/CT head wo con* [id number] IMPRESSION: 1. No acute infarct or hemorrhage. 2. No calvarial or skull base fracture. 3. Mild parenchymal atrophy and chronic small vessel disease. Radiation Dose CTDIVOL = (mGy): DLP = 969.38 (mGy-cm)
--- NOTE | 2020-05-15 03:16 | XR_ITS ---
WS: [id number] Right shoulder, 3 views, 05/15/2020 Clinical Data: fall Comparison: None. Findings: There is a fracture involving the right greater tuberosity. The humeral head remains within the gleno id fossa. The AC joint is normal. The adjacent right clavicle, right scapula and ribs are unremarkable. The sof t tissues are normal. XR/XR shoulder RT min 2V* [id number] Impression: Avulsion fracture of the greater tuberosity of the right humeral head.
--- NOTE | 2020-05-15 03:16 | CTR_ITS ---
PROCEDURE INFORMATION: Exam: CT Cervical Spine Without Contrast Exam date and time: 05/15/2020 3:18 AM Age: 70 years old Clinical indication: Injury or trauma; Blunt trauma; Patient HX: Fall at home. Sustained blow to head and landed on floor. C/O head, neck, rib, right shoulder, and abd pain. Best positioning possible due to patient body habitus and inability to raise arms above head. Unable to remove rings from fingers. TECHNIQUE: Imaging protocol: Computed tomography images of the cervical spine without contrast. Radiation optimization: All CT scans at this facility use at least one of these dose optimization techniques: automated exposure control; mA and/or kV adjustment per patient size (includes targeted exams where dose is matched to clinical indication); or iterative reconstruction. COMPARISON: CT cervical spin wo con* [id number] 12/13/2019 9:00 PM RADIATION DOSE METRICS: Total DLP (mGy-cm): 1379.63 FINDINGS: Bones/joints: There is normal vertebral body alignment. There are normal vertebral body heights. The dens is intact. The lateral masses of C1 are symmetric. . No fracture. Discs/Spinal canal/Neural foramina: Craniocervical articulation is normal. Atlantodental interval and prevertebral soft tissues are normal. Severe disc space narrowing is present C5-C7. Lungs: Lung apices are normal. Soft tissues: Unremarkable. CT/CT cervical spin wo con* [id number] IMPRESSION: Degenerative disc disease but no fracture. Radiation Dose CTDIVOL = (mGy): DLP = 1379.63 (mGy-cm)
--- NOTE | 2020-05-15 03:16 | CTR_ITS ---
PROCEDURE INFORMATION: Exam: CT Thoracic Spine Without Contrast Exam date and time: 05/15/2020 3:18 AM Age: 70 years old Clinical indication: Injury or trauma; Blunt trauma (contusions or hematomas); Patient HX: Fall at home. Sustained blow to head and landed on floor. C/O head, neck, rib, right shoulder, and abd pain. Best positioning possible due to patient body habitus and inability to raise arms above head. Unable to remove rings from fingers. TECHNIQUE: Imaging protocol: Computed tomography images of the thoracic spine without contrast. Radiation optimization: All CT scans at this facility use at least one of these dose optimization techniques: automated exposure control; mA and/or kV adjustment per patient size (includes targeted exams where dose is matched to clinical indication); or iterative reconstruction. COMPARISON: [place]* [id number] 12/13/2016 3:09 PM RADIATION DOSE METRICS: Total DLP (mGy-cm): 2360.26 FINDINGS: Vertebrae: Continued old slight anterior wedging of T6 through T9, T11 and T12. No acute fracture or interval malalignment. Discs/Spinal canal/Neural foramina: Continued degeneration of multiple discs, including the 3 lowest cervical discs. No interval significant canal stenosis. Soft tissues: No acute finding. Lungs: Interval clearance of most of the atelectasis from the lung bases. Pleural spaces: No current pleural effusions. Kidneys and ureters: Continued stones in the upper right kidney. Adrenals: No interval enlargement of the 2.7 cm left adrenal mass. CT/CT thoracic spin wo con* [id number] IMPRESSION: 1. No acute fracture. Multiple old compression fractures and multilevel degenerative disease still present. 2. Continued stones in the upper right kidney. No interval enlargement of the left adrenal mass consistent with an adenoma. Other findings detailed above. Radiation Dose CTDIVOL = (mGy): DLP = 2360.26 (mGy-cm)
--- NOTE | 2020-05-15 03:20 | W.ED.FALL ---
Documented by User: Kristie Rush MD 05/15/20 06:08 HPI - Fall General: Chief Complaint: Fall Stated Complaint: fall Time Seen by Provider: 05/15/20 03:16 Source: patient and EMS Mode of arrival: EMS Limitations: no limitations History of Present Illness: HPI Narrative: 70-year-old female that states she got up and tripped and fell today. Patient fell onto her dresser and landed on her right shoulder. States she also hit her head. She has severe right shoulder pain especially any movement. She has pain in her head neck and back. She denies any lower extremity pain. States her pain in her arm is much worse with movement improved with rest. Denies any loss conscious. complaint: fall Associated symptoms-after fall: Reports neck pain; Denies abdominal pain, chest pain or headache(s) Review of Systems Const: Denies: fever(s), chills, body aches or change in appetite Eyes: Denies: blurry vision or eye discomfort ENMT: Denies: throat pain or dental pain Card: Denies: chest pain Resp: Denies: dyspnea GI: Denies: abdominal pain, nausea, vomiting or diarrhea : Denies: dysuria Musc: Reports: neck pain, back pain and extremity pain Skin/Breast: Denies: rash Neuro: Denies: headache(s) Psych: Denies: depression Steven/Lymph: Denies: easy bruising All/Imm: Denies: urticaria PFSH ED PFSH: Medical History Anxiety ASHD (arteriosclerotic heart disease) Back pain CHF (congestive heart failure) CKD (chronic kidney disease) Coronary artery disease DDD (degenerative disc disease) Decreased hearing of both ears Diabetes Diabetic polyneuropathy Duodenal ulcer Dyslipidemia History of GI bleed Hypertension Incarcerated incisional hernia Morbid obesity Morbilliform rash PUD (peptic ulcer disease) Recurrent UTI Vitamin B deficiency Vitamin D deficiency Surgical History H/O esophagogastroduodenoscopy (~06/05/19) H/O hernia repair History of coronary artery stent placement Cardiac cath on 12/13/2016 with stent placement to LAD Hx of section 3 Hx of cholecystectomy Hx of tonsillectomy S/P appendectomy S/P plastic surgery 2019, panniculectomy Family History Mother CAD (coronary artery disease) Other Hypertension Social History Smoking and tobacco status: former smoker Quit status (tobacco): has quit using tobacco Former quit date comment: 2.5 PPD x 40 yrs Alcohol intake: unknown Lives independently: Yes Household members: spouse Housing: House Marital status: Pets and animals: Yes History of recent travel: No Current gender identity: Female Female Reproductive History: Date of last menstrual period: 06/05/19 Physical Exam Const: COMMON NORMALS: no acute distress, patient oriented x3 and healthy appearing HENMT: COMMON NORMALS: normocephalic and atraumatic HEAD & SCALP: normocephalic and atraumatic Eye: COMMON NORMALS: Equal, round and reactive pupils present and EOMs intact bilaterally PUPIL: Yes Equal, round and reactive pupils present Neck/C-Spine: COMMON NORMALS: supple OTHER: Posterior C-spine tenderness Chest: COMMONS NORMALS: normal inspection of the chest and normal palpation of entire chest wall Resp: COMMON NORMALS: normal respiratory effort, No retractions, No use of accessory muscles and clear to auscultation bilaterally AUSCULTATION: clear to auscultation bilaterally Cardio: COMMON NORMALS: regular rate, regular rhythm and No murmurs present (Cardio) RATE: regular rate RHYTHM: regular rhythm GI: COMMON NORMALS: Normal to inspection, nondistended, normoactive bowel sounds present, Soft to palpation, non-tender and no masses PALPATION: Yes Soft to palpation Back/Pelvis: OTHER: Mild tenderness along the back with no step-off Extremity: NARRATIVE EXTREMITY EXAM: Tenderness along the right shoulder with no obvious dislocation distal pulses intact Neuro: COMMON NORMALS: patient oriented x3, moves all extremities and no focal motor deficits Psych: COMMON NORMALS: mental status grossly normal, Normal thought process present and cooperative THOUGHT PROCESS: Normal thought process present Skin: COMMON NORMALS: no rashes or lesions noted and no wounds GENERAL SKIN EXAM: no rashes or lesions noted Course Vital Signs: Vital signs: Vital Signs Temperature 97.9 F 05/15/20 15:43 Pulse Rate 96 04/08/21 15:43 Respiratory Rate 18 05/15/20 15:43 Blood Pressure 129/60 05/15/20 15:43 Pulse Oximetry 100 05/15/20 15:43 MDM - Fall Imaging Data^: CT Head: Attestation: I personally reviewed and interpreted this imaging study as follows: Radiologist's impression: [employer] [place] [address] CT Scan Report Signed Patient: Yesika Sanchez Unit #: [id number] : 1950 Age/Sex: 70 / F ADM Date: 05/15/20 Loc: ER Room/Bed: Attending Dr: Ordering Provider/Ordering MD: Kristie Rush MD Date of Service: 05/15/20 Procedure(s): CT head wo con* [id number] Accession Number(s): [id number] Report Number: [id number] PROCEDURE INFORMATION: Exam: CT Head Without Contrast Exam date and time: 05/15/2020 3:18 AM Age: 70 years old Clinical indication: Injury or trauma; Blunt trauma (contusions or hematomas); Patient HX: Fall at home. Sustained blow to head and landed on floor. C/O head, neck, rib, right shoulder, and abd pain. Best positioning possible due to patient body habitus and inability to raise arms above head. Unable to remove rings from fingers. TECHNIQUE: Imaging protocol: Computed tomography of the head without contrast. Radiation optimization: All CT scans at this facility use at least one of these dose optimization techniques: automated exposure control; mA and/or kV adjustment per patient size (includes targeted exams where dose is matched to clinical indication); or iterative reconstruction. COMPARISON: CT head wo con* [id number] 12/13/2019 8:56 PM RADIATION DOSE METRICS: Total DLP (mGy-cm): 969.38 FINDINGS: Brain: No acute infarct or hemorrhage. There is mild parenchymal atrophy and chronic small vessel disease. Cerebral ventricles: No ventriculomegaly. Bones/joints: No calvarial or skull base fracture. Paranasal sinuses: Paranasal sinuses are clear. No air-fluid level. Mastoid air cells: Visualized mastoid air cells are clear. Soft tissues: Unremarkable. CT/CT head wo con* [id number] IMPRESSION: 1. No acute infarct or hemorrhage. 2. No calvarial or skull base fracture. 3. Mild parenchymal atrophy and chronic small vessel disease. ct c spine: Radiologist's impression: [employer] [address] [address] Scan Report Signed Patient: Yesika Sanchez Unit #: [id number] : 1950 Age/Sex: 70 / F ADM Date: 05/15/20 Loc: ER Room/Bed: Attending Dr: Ordering Provider/Ordering MD: Kristie Rush MD Date of Service: 05/15/20 Procedure(s): CT cervical spin wo con* [id number] Accession Number(s): [id number] Report Number: [id number] PROCEDURE INFORMATION: Exam: CT Cervical Spine Without Contrast Exam date and time: 05/15/2020 3:18 AM Age: 70 years old Clinical indication: Injury or trauma; Blunt trauma; Patient HX: Fall at home. Sustained blow to head and landed on floor. C/O head, neck, rib, right shoulder, and abd pain. Best positioning possible due to patient body habitus and inability to raise arms above head. Unable to remove rings from fingers. TECHNIQUE: Imaging protocol: Computed tomography images of the cervical spine without contrast. Radiation optimization: All CT scans at this facility use at least one of these dose optimization techniques: automated exposure control; mA and/or kV adjustment per patient size (includes targeted exams where dose is matched to clinical indication); or iterative reconstruction. COMPARISON: CT cervical spin wo con* [id number] 12/13/2019 9:00 PM RADIATION DOSE METRICS: Total DLP (mGy-cm): 1379.63 FINDINGS: Bones/joints: There is normal vertebral body alignment. There are normal vertebral body heights. The dens is intact. The lateral masses of C1 are symmetric. . No fracture. Discs/Spinal canal/Neural foramina: Craniocervical articulation is normal. Atlantodental interval and prevertebral soft tissues are normal. Severe disc space narrowing is present C5-C7. Lungs: Lung apices are normal. Soft tissues: Unremarkable. CT/CT cervical spin wo con* [id number] IMPRESSION: Degenerative disc disease but no fracture. ct t spine: Radiologist's impression: [address] [place] [address] CT Scan Report Signed Patient: Yesika Sanchez Unit #: [id number] : 1950 Age/Sex: 70 / F ADM Date: 05/15/20 Loc: ER Room/Bed: Attending Dr: Ordering Provider/Ordering MD: Kristie Rush MD Date of Service: 05/15/20 Procedure(s): CT thoracic spin wo con* [id number] Accession Number(s): [id number] Report Number: [id number] PROCEDURE INFORMATION: Exam: CT Thoracic Spine Without Contrast Exam date and time: 05/15/2020 3:18 AM Age: 70 years old Clinical indication: Injury or trauma; Blunt trauma (contusions or hematomas); Patient HX: Fall at home. Sustained blow to head and landed on floor. C/O head, neck, rib, right shoulder, and abd pain. Best positioning possible due to patient body habitus and inability to raise arms above head. Unable to remove rings from fingers. TECHNIQUE: Imaging protocol: Computed tomography images of the thoracic spine without contrast. Radiation optimization: All CT scans at this facility use at least one of these dose optimization techniques: automated exposure control; mA and/or kV adjustment per patient size (includes targeted exams where dose is matched to clinical indication); or iterative reconstruction. COMPARISON: [place]* [id number] 12/13/2016 3:09 PM RADIATION DOSE METRICS: Total DLP (mGy-cm): 2360.26 FINDINGS: Vertebrae: Continued old slight anterior wedging of T6 through T9, T11 and T12. No acute fracture or interval malalignment. Discs/Spinal canal/Neural foramina: Continued degeneration of multiple discs, including the 3 lowest cervical discs. No interval significant canal stenosis. Soft tissues: No acute finding. Lungs: Interval clearance of most of the atelectasis from the lung bases. Pleural spaces: No current pleural effusions. Kidneys and ureters: Continued stones in the upper right kidney. Adrenals: No interval enlargement of the 2.7 cm left adrenal mass. CT/CT thoracic spin wo con* [id number] IMPRESSION: 1. No acute fracture. Multiple old compression fractures and multilevel degenerative disease still present. 2. Continued stones in the upper right kidney. No interval enlargement of the left adrenal mass consistent with an adenoma. Other findings detailed above. CT Chest: Radiologist's impression: [address] [address] [address] Scan Report Signed Patient: Yesika Sanchez Unit #: [id number] : 1950 Age/Sex: 70 / F ADM Date: 05/15/20 Loc: ER Room/Bed: Attending Dr: Ordering Provider/Ordering MD: Kristie Rush MD Date of Service: 05/15/20 Procedure(s): CT chest abd pel w con* Accession Number(s): [id number] Report Number: [id number] PROCEDURE INFORMATION: Exam: CT Chest With Contrast; Diagnostic Exam date and time: 05/15/2020 3:51 AM Age: 70 years old Clinical indication: Injury or trauma; Generalized; Blunt trauma (contusions or hematomas); Prior surgery; Surgery type: Cardiac stents. Gb. Appy. Csection. Hernia repair. ; Patient HX: Fall at home. Sustained blow to head and landed on floor. C/O head, neck, rib, right shoulder, and abd pain. Best positioning possible due to patient body habitus and inability to raise arms above head. Unable to remove rings from fingers. TECHNIQUE: Imaging protocol: Diagnostic computed tomography of the chest with contrast. Radiation optimization: All CT scans at this facility use at least one of these dose optimization techniques: automated exposure control; mA and/or kV adjustment per patient size (includes targeted exams where dose is matched to clinical indication); or iterative reconstruction. Contrast material: VISI 320; Contrast volume: 75 ml; Contrast route: INTRAVENOUS (IV); COMPARISON: CT chest abd pel w con* 12/13/2019 11:04 PM RADIATION DOSE METRICS: Total DLP (mGy-cm): 3.79 FINDINGS: Lungs: Continued dependent atelectasis in the left lung. Still no consolidation. Pleural spaces: Unremarkable. No pneumothorax. No pleural effusion. Heart: Stable heart size. Still no pericardial effusion. Pulmonary arteries: Continued enlargement of the main pulmonary artery compared to the ascending aorta. Aorta: Continued atherosclerosis. Still no aortic aneurysm. No suggestion of an aortic dissection. Lymph nodes: Still no enlarged nodes. 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 Subchondral defects in the superior left humeral head. Old left 5th and 6th distal rib fractures again evident. Spinal findings detailed in a separate report. Motion simulating a left humeral shaft fracture. Soft tissues: No acute soft tissue finding. IMPRESSION: 1. 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 No acute injury elsewhere. 2. Continued enlargement of the main pulmonary artery raising the possibility of pulmonary arterial hypertension. Other findings detailed above. PROCEDURE INFORMATION: Exam: CT Abdomen And Pelvis With Contrast Exam date and time: 05/15/2020 3:51 AM Age: 70 years old Clinical indication: Injury or trauma; Generalized; Blunt trauma (contusions or hematomas); Prior surgery; Surgery type: Cardiac stents. Gb. Appy. Csection. Hernia repair. ; Patient HX: Fall at home. Sustained blow to head and landed on floor. C/O head, neck, rib, right shoulder, and abd pain. Best positioning possible due to patient body habitus and inability to raise arms above head. Unable to remove rings from fingers. TECHNIQUE: Imaging protocol: Computed tomography of the abdomen and pelvis with contrast. Radiation optimization: All CT scans at this facility use at least one of these dose optimization techniques: automated exposure control; mA and/or kV adjustment per patient size (includes targeted exams where dose is matched to clinical indication); or iterative reconstruction. Contrast material: VISI 320; Contrast volume: 75 ml; Contrast route: INTRAVENOUS (IV); COMPARISON: CT chest abd pel w con* 12/13/2019 11:04 PM RADIATION DOSE METRICS: Total DLP (mGy-cm): 2082.79 FINDINGS: Limitations: Streak artifacts. Liver: No interval large liver mass. Gallbladder and bile ducts: Continued absence of the gallbladder consistent with the reported cholecystectomy. Pancreas: No suggestion of interval pancreatic disease. Spleen: Continued splenomegaly. Adrenal glands: No interval enlargement of the 2.4 x 2.4 cm left adrenal mass. Still no right adrenal mass. Kidneys and ureters: No significant change in the 4.8 cm right lower renal water density cyst. Continued smaller probable cyst in the left kidney. Two stones in the right upper kidney again evident. Interval disappearance of the right hydronephrosis. No definite left hydronephrosis currently. Stomach and bowel: Continued elongation of the sigmoid colon into the right subhepatic space. Interval worsening of the marked proximal sigmoid diverticulosis. Continued at least mild descending diverticulosis. Still no obstruction. Appendix: Still no appendicitis. Short appendiceal stump noted. Intraperitoneal space: Still no free air. Vasculature: Continued atherosclerosis. Still no aortic aneurysm. Continued enlargement of the umbilical vein and presence of varices in the anterior abdominal wall extending into the left inguinal region. Lymph nodes: No interval suspicious nodes. Urinary bladder: Interval disappearance of the Khan catheter from the bladder. Mild bladder distension. No stones. Reproductive: Unremarkable as visualized. Bones/joints: Spinal findings detailed in a separate report. No acute fracture in the other bones. Soft tissues: Sutures in the anterior abdominal wall and a small anterior abdominal wall hernia containing fat again evident. Continued stranding and haziness in the subcutaneous fat as well as left buttock injection granulomatous calcifications and a surgical clip adjacent to the right iliac crest and another surgical clip in the left inguinal region. Apparent interval development of focal soft tissue density in the subcutaneous fat of the lateral left hip region. CT/CT chest abd pel w con* IMPRESSION: 1. No acute intra-abdominal injury. Continued splenomegaly and varices suggesting portal venous hypertension. 2. No interval enlargement of the left adrenal mass consistent with an adenoma. 3. Renal cysts again evident. Continued presence of 2 stones in the upper right kidney. No hydronephrosis. 4. Interval disappearance of the Khan catheter from the bladder. 5. Interval worsening of the marked sigmoid diverticulosis. 6. Apparent interval development of focal soft tissue density in the subcutaneous fat of the lateral left hip region, significance unknown. Other findings detailed above. Discharge Plan Discharge Patient Disposition: [facility] Clinical Impression: Diabetes, Anxiety, DDD (degenerative disc disease), CKD (chronic kidney disease), Hypertension Closed right humeral fracture Qualifiers: Encounter type: initial encounter Humerus Location: proximal Fracture morphology: unspecified fracture morphology Qualified Code(s): S42.201A - Unspecified fracture of upper end of right humerus, initial encounter for closed fracture Fall Qualifiers: Encounter type: initial encounter Qualified Code(s): W19.XXXA - Unspecified fall, initial encounter Condition: Stable Discharge Orders: Discharge ED (Routine); Ordered 05/15/20 Ordered By: Kristie Rush Referrals: Delfino Bae DO [Physician] - 1-3 days Shannon Earl MD [Primary Care Provider] - Discharge Diet: Advance as tolerated Discharge Activity: Resume usual activity Patient Instructions: Arm Fracture in Adults (ED), Opioid Safety Coding Level of Care Code ED Scale Adjuster for Chg Fwd Exam Comprehensive Documented by User: Anthony Mcgill DO 05/18/20 09:09 HPI - Fall General: Chief Complaint: Fall Stated Complaint: fall Time Seen by Provider: 05/15/20 03:16 History of Present Illness: HPI Narrative: 70-year-old female who was seen earlier by Dr. Tripathi they were attempting to discharge her and required the assistance of 4 people or more and even with that she would not provide any assistance whatsoever and essentially would not get into a car. Or at least would not help in any manner. Her imaging was reviewed from the earlier portion of the visit she has a right proximal humerus fracture. There were no other injuries patient had CT of the chest abdomen and pelvis as well as head and neck and spine she has old compression fractures but nothing that appears new. [facility] and was self discharged to home. She does get home health. She usually requires the assistance of a walker to get around. Did not use her walker this morning and is now unable to ambulate in any fashion even with the assistance of multiple persons. [facility] ED PFSH: Medical History Anxiety ASHD (arteriosclerotic heart disease) Back pain CHF (congestive heart failure) CKD (chronic kidney disease) Coronary artery disease DDD (degenerative disc disease) Decreased hearing of both ears Diabetes Diabetic polyneuropathy Duodenal ulcer Dyslipidemia History of GI bleed Hypertension Incarcerated incisional hernia Morbid obesity Morbilliform rash PUD (peptic ulcer disease) Recurrent UTI Vitamin B deficiency Vitamin D deficiency Surgical History H/O esophagogastroduodenoscopy (~06/05/19) H/O hernia repair History of coronary artery stent placement Cardiac cath on 12/13/2016 with stent placement to LAD Hx of section 3 Hx of cholecystectomy Hx of tonsillectomy S/P appendectomy S/P plastic surgery 2019, panniculectomy Family History Mother CAD (coronary artery disease) Other Hypertension Social History Smoking and tobacco status: former smoker Quit status (tobacco): has quit using tobacco Former quit date comment: 2.5 PPD x 40 yrs Alcohol intake: unknown Lives independently: Yes Household members: spouse Housing: House Marital status: Pets and animals: Yes History of recent travel: No Current gender identity: Female Course Vital Signs: Vital signs: Vital Signs Temperature 97.9 F 05/15/20 15:43 Pulse Rate 96 05/15/20 15:43 Respiratory Rate 18 05/15/20 15:43 Blood Pressure 129/60 05/15/20 15:43 Pulse Oximetry 100 05/15/20 15:43 MDM - Fall MDM Narrative: Medical decision making narrative: After prolonged ER stay Case management was able to get her discharged to the nursing Discharge Plan Discharge Patient Disposition: er LT Clinical Impression: Diabetes, Anxiety, DDD (degenerative disc disease), CKD (chronic kidney disease), Hypertension Closed right humeral fracture Qualifiers: Encounter type: initial encounter Humerus Location: proximal Fracture morphology: unspecified fracture morphology Qualified Code(s): S42.201A - Unspecified fracture of upper end of right humerus, initial encounter for closed fracture Fall Qualifiers: Encounter type: initial encounter Qualified Code(s): W19.XXXA - Unspecified fall, initial encounter Condition: Stable Discharge Orders: Discharge ED (Routine); Ordered 05/15/20 Ordered By: Kristie Rush Referrals: Delfino Bae DO [Physician] - 1-3 days Shannon Earl MD [Primary Care Provider] - Discharge Diet: Advance as tolerated Discharge Activity: Resume usual activity Patient Instructions: Arm Fracture in Adults (ED), Opioid Safety Coding Level of Care Code ED Scale Adjuster for Rosa Fwd Exam Comprehensive
[2020-05-15] MEDS: morphine 4 mg/mL SDV 1 mL IVP (03:41)
[2020-05-15] MEDS: ondansetron 2 mg/ML SDV 2 mL 4 MG IVP (03:42)
--- NOTE | 2020-05-15 03:49 | CTR_ITS ---
PROCEDURE INFORMATION: Exam: CT Chest With Contrast; Diagnostic Exam date and time: 05/15/2020 3:51 AM Age: 70 years old Clinical indication: Injury or trauma; Generalized; Blunt trauma (contusions or hematomas); Prior surgery; Surgery type: Cardiac stents. Gb. Appy. Csection. Hernia repair. ; Patient HX: Fall at home. Sustained blow to head and landed on floor. C/O head, neck, rib, right shoulder, and abd pain. Best positioning possible due to patient body habitus and inability to raise arms above head. Unable to remove rings from fingers. TECHNIQUE: Imaging protocol: Diagnostic computed tomography of the chest with contrast. Radiation optimization: All CT scans at this facility use at least one of these dose optimization techniques: automated exposure control; mA and/or kV adjustment per patient size (includes targeted exams where dose is matched to clinical indication); or iterative reconstruction. Contrast material: VISI 320; Contrast volume: 75 ml; Contrast route: INTRAVENOUS (IV); COMPARISON: CT chest abd pel w con* 12/13/2019 11:04 PM RADIATION DOSE METRICS: Total DLP (mGy-cm): 3.79 FINDINGS: Lungs: Continued dependent atelectasis in the left lung. Still no consolidation. Pleural spaces: Unremarkable. No pneumothorax. No pleural effusion. Heart: Stable heart size. Still no pericardial effusion. Pulmonary arteries: Continued enlargement of the main pulmonary artery compared to the ascending aorta. Aorta: Continued atherosclerosis. Still no aortic aneurysm. No suggestion of an aortic dissection. Lymph nodes: Still no enlarged nodes. 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 Subchondral defects in the superior left humeral head. Old left 5th and 6th distal rib fractures again evident. Spinal findings detailed in a separate report. Motion simulating a left humeral shaft fracture. Soft tissues: No acute soft tissue finding. IMPRESSION: 1. Comminuted acute fracture of the proximal right humerus, apparently new since the prior timber sizer operator image. No acute injury elsewhere. 2. Continued enlargement of the main pulmonary artery raising the possibility of pulmonary arterial hypertension. Other findings detailed above. PROCEDURE INFORMATION: Exam: CT Abdomen And Pelvis With Contrast Exam date and time: 05/15/2020 3:51 AM Age: 70 years old Clinical indication: Injury or trauma; Generalized; Blunt trauma (contusions or hematomas); Prior surgery; Surgery type: Cardiac stents. Gb. Appy. Csection. Hernia repair. ; Patient HX: Fall at home. Sustained blow to head and landed on floor. C/O head, neck, rib, right shoulder, and abd pain. Best positioning possible due to patient body habitus and inability to raise arms above head. Unable to remove rings from fingers. TECHNIQUE: Imaging protocol: Computed tomography of the abdomen and pelvis with contrast. Radiation optimization: All CT scans at this facility use at least one of these dose optimization techniques: automated exposure control; mA and/or kV adjustment per patient size (includes targeted exams where dose is matched to clinical indication); or iterative reconstruction. Contrast material: VISI 320; Contrast volume: 75 ml; Contrast route: INTRAVENOUS (IV); COMPARISON: CT chest abd pel w con* 12/13/2019 11:04 PM RADIATION DOSE METRICS: Total DLP (mGy-cm): 2083.79 FINDINGS: Limitations: Streak artifacts. Liver: No interval large liver mass. Gallbladder and bile ducts: Continued absence of the gallbladder consistent with the reported cholecystectomy. Pancreas: No suggestion of interval pancreatic disease. Spleen: Continued splenomegaly. Adrenal glands: No interval enlargement of the 2.4 x 2.4 cm left adrenal mass. Still no right adrenal mass. Kidneys and ureters: No significant change in the 4.8 cm right lower renal water density cyst. Continued smaller probable cyst in the left kidney. Two stones in the right upper kidney again evident. Interval disappearance of the right hydronephrosis. No definite left hydronephrosis currently. Stomach and bowel: Continued elongation of the sigmoid colon into the right subhepatic space. Interval worsening of the marked proximal sigmoid diverticulosis. Continued at least mild descending diverticulosis. Still no obstruction. Appendix: Still no appendicitis. Short appendiceal stump noted. Intraperitoneal space: Still no free air. Vasculature: Continued atherosclerosis. Still no aortic aneurysm. Continued enlargement of the umbilical vein and presence of varices in the anterior abdominal wall extending into the left inguinal region. Lymph nodes: No interval suspicious nodes. Urinary bladder: Interval disappearance of the Khan catheter from the bladder. Mild bladder distension. No stones. Reproductive: Unremarkable as visualized. Bones/joints: Spinal findings detailed in a separate report. No acute fracture in the other bones. Soft tissues: Sutures in the anterior abdominal wall and a small anterior abdominal wall hernia containing fat again evident. Continued stranding and haziness in the subcutaneous fat as well as left buttock injection granulomatous calcifications and a surgical clip adjacent to the right iliac crest and another surgical clip in the left inguinal region. Apparent interval development of focal soft tissue density in the subcutaneous fat of the lateral left hip region. CT/CT chest abd pel w con* IMPRESSION: 1. No acute intra-abdominal injury. Continued splenomegaly and varices suggesting portal venous hypertension. 2. No interval enlargement of the left adrenal mass consistent with an adenoma. 3. Renal cysts again evident. Continued presence of 2 stones in the upper right kidney. No hydronephrosis. 4. Interval disappearance of the Khan catheter from the bladder. 5. Interval worsening of the marked sigmoid diverticulosis. 6. Apparent interval development of focal soft tissue density in the subcutaneous fat of the lateral left hip region, significance unknown. Other findings detailed above. COMMENTS: Consistent with the [employer]'s Incidental Findings Committee white paper (J Am Valentín Radiol 2018): Any incidental renal lesion less than 1 cm or classified as too small to characterize, or any incidental cystic renal lesion characterized as simple-appearing, is likely benign. No follow-up imaging is recommended for these lesions per consensus recommendations based on imaging criteria. Radiation Dose CTDIVOL = (mGy): DLP = 2083.79~2083.79 (mGy-cm)
[2020-05-15] MEDS: iodixanol 320 mg/mL 100mL Btl IV (04:35)
--- NOTE | 2020-05-15 08:12 | PC.NURSE ---
This RN assisted patient to her husbands vehicle. Patient was able to clinical field specialist her room and turn and set in the wheelchair. This RN and CHEMA Flannery took patients out to the vehicle. Patient then refused to stand. This RN called for extra assistance. Patient still refused to stand with assistance. CHEMA Berry talked to the patient and explained to her if she is unable to get up on her own then it is not safe for her to go home due to not having anyone at home to assist her. Patient at first refused due to not wanting to go to a jail. Patient then assisted back into the ER. Patient again was able to stand and set back in bed on her own.
--- NOTE | 2020-05-15 08:45 | PC.NURSE ---
pt transferred from bed to wheelchair with minimal to no assistance. pt given breakfast tray. pt has call light within reach. pt asked nurse to help her take a bath and take her for a walk. nurse informed pt that these are items she cannot assist pt with because this is an emergency room and nurse cannot leave her other patients with emergencies unattended.
--- NOTE | 2020-05-15 11:17 | DCPLANNER ---
tooling manager had message to schedule a follow up appointment for patient with ortho. tooling manager called the ortho clinic, spoke with Thelma, gave clinic patients information. tooling manager was told that patients information would be printed and reviewed. Clinic will call patient with appointment information.
--- NOTE | 2020-05-15 11:46 | PC.NURSE ---
pt refusing to try and transfer to bedside commode with assistance. nurse contacted PT who came and assisted pt and nurse. necessary to coax pt greatly with use of a gait belt just to make her stand
--- NOTE | 2020-05-15 15:21 | PC.NURSE ---
Attempted to call [facility] to give report, per MA staff Kanwal, they would not take report until they received orders. Kanwal states that she spoke to someone here that told her they had faxed orders several times but MA still hasn't received them.
[2020-05-15] MEDS: HYDROcodone-acetaminophen 5-325 mg Tablet 1 TAB PO (16:03)
--- NOTE | 2020-05-16 07:38 | DCPLANNER ---
late entry - data manager was asked to assist patient in fci placement. data manager spoke with patient about fci placement for a little while for rehab purposes and then when better returning home. Patient stated that she would go to a fci for a limited time. data manager gave patient the patient choice letter to sign stating which fci patient would like for special education case manager to try first. Patients first choice was [facility], then [facility], then [facility]. data manager got verbal understanding on the three choices and signed patient choice letter to be put into patients chart. data manager called [facility], spoke with Carmelina, faxed patients information to [facility] for review. Patient then stated that she would like for special education case manager to send her information to [facility], special education case manager faxed patients information to [facility] for review. Carmelina from [facility] called, stating that the authorization for patients medicare was still good, and that patient could go to [facility] on her medicare. data manager updated patient and her spouse that patient could go to [facility] on medicare and not her medicaid. data manager updated ER physician and, charge nurse and patients nurse. data manager faxed discharge information to the fci, nurse called report.
--- NOTE | 2020-05-16 08:57 | DCPLANNER ---
Patient had a follow up appointment scheduled for 05.16.[address] Bae at [facility] - patient did attend appointment.
== END 2020-05-15 18:46 ==
PROVIDERS: Emergency Provider Family Medicine; PCP Family Medicine
DX: S42.201A Unspecified fracture of upper end of right humerus, initial encounter for closed fracture (principal); F41.9 Anxiety disorder, unspecified; I13.0 Hypertensive heart and chronic kidney disease with heart failure and stage 1 through stage 4 chronic kidney disease, or unspecified chronic kidney disease; E11.22 Type 2 diabetes mellitus with diabetic chronic kidney disease; N18.9 Chronic kidney disease, unspecified; I50.9 Heart failure, unspecified; M51.36 Other intervertebral disc degeneration, lumbar region; M51.34 Other intervertebral disc degeneration, thoracic region; Z87.891 Personal history of nicotine dependence; I25.10 Atherosclerotic heart disease of native coronary artery without angina pectoris; E11.42 Type 2 diabetes mellitus with diabetic polyneuropathy; E78.5 Hyperlipidemia, unspecified; W01.0XXA Fall on same level from slipping, tripping and stumbling without subsequent striking against object, initial encounter
CPT/HCPCS: 70450; 71045; 71260; 72125; 72128; 72131; 73030; 74177; 96374; 96375; 97161; 99284; J2270; J2405; Q9967

== ENCOUNTER → 2020-05-16 08:47 | Outpatient (BNVA) | payer OTHER, MEDICARE, MEDICAID, SELFPAY | PROVIDERS: PCP Family Medicine; Referring Provider Emergency Medicine; Visit Provider Orthopaedic Surgery | DX: S42.291A Other displaced fracture of upper end of right humerus, initial encounter for closed fracture (principal) | CPT/HCPCS: 73030 ==

== ENCOUNTER 2020-05-26 14:10 | Emergency (ER) | payer MEDICARE, MEDICAID, SELFPAY ==
[2020-05-26 14:14] VITALS: BP 117/69; PULSE 90; RESP 16; TEMP 36.6; O2SAT 99; BMI 36.9
--- NOTE | 2020-05-26 15:22 | XRR_ITS ---
PROCEDURE INFORMATION: Exam: XR Right Humerus Exam date and time: 05/26/2020 3:32 PM Age: 70 years old Clinical indication: Pain; Upper arm; Right TECHNIQUE: Imaging protocol: XR Right humerus. Views: 2 or more views. COMPARISON: CR XR shoulder RT min 2V* [id number] 05/16/2020 8:57 AM FINDINGS: Bones/joints: Comminuted fracture of the proximal humerus. Mid/distal humeral shaft appears intact. Soft tissues: The soft tissues appear unremarkable. XR/[place] [id number] IMPRESSION: Comminuted fracture of the proximal humerus.
--- NOTE | 2020-05-26 15:22 | XRR_ITS ---
PROCEDURE INFORMATION: Exam: XR Right Shoulder Exam date and time: 05/26/2020 3:32 PM Age: 70 years old Clinical indication: Pain and injury or trauma; Fall; Blunt trauma (contusions or hematomas); Shoulder; Right; Additional info: Pain/fall TECHNIQUE: Imaging protocol: XR Right shoulder. Views: 2 or more views. COMPARISON: CR XR shoulder RT min 2V* [id number] 05/16/2020 8:57 AM FINDINGS: Bones/joints: Comminuted fracture of the proximal humerus. Fracture involves the surgical neck of the humerus in the greater tuberosity. No dislocation of the glenohumeral joint. Position of the humeral head relative to the glenoid fossa suggests joint effusion. Acromioclavicular joint is intact. Soft tissues: Soft tissues are unremarkable. XR/XR shoulder RT min 2V* [id number] IMPRESSION: 1. Comminuted fracture of the proximal humerus. 2. No dislocation of the glenohumeral joint.
--- NOTE | 2020-05-26 15:23 | W.ED.GENADLT ---
HPI - General Adult General: Chief complaint: General Medical Stated complaint: UNABLE TO AMBULATE Time Seen by Provider: 05/26/20 14:44 History of Present Illness: HPI narrative: 70-year-old female presents emergency room for readmission to the fdc after leaving 3 days ago. She has a right humeral fracture with a impaction of the surgical neck into the humeral head. She is a sling in place. She became upset at the fdc and called the police that she was being held against her will and was ultimately discharged after a few days at home she realizes now she does need help with her cares and presents emergency room requesting to be readmitted to the same fdc. She is not had any falls since arriving at home. She did states she fell the day before she left the fdc. She tells me that her arm was not re-xrayed after that fall. Onset (ago): day(s) Location: right and upper extremity Pain Consistency: constant Relieving factors: immobilization Exacerbating factors: movement Associated symptoms: Deny chest pain, confusion, cough, diaphoresis, decreased appetite, dyspnea, fevers/chills, headache(s), malaise, nausea, rash, palpitations, seizures, short of breath, syncope, vomiting or weakness Review of Systems Const: Denies: malaise or diaphoresis ENMT: Denies: throat pain, ear or mastoid pain, nasal discharge or nasal congestion Card: Denies: chest pain, palpitations or syncope Resp: Denies: dyspnea GI: Denies: nausea or vomiting : Denies: flank pain, difficulty voiding, dysuria, urinary frequency or urinary urgency Skin/Breast: Denies: rash Neuro: Denies: headache(s) PFSH ED PFSH: Medical History Anxiety ASHD (arteriosclerotic heart disease) Back pain CHF (congestive heart failure) CKD (chronic kidney disease) Coronary artery disease DDD (degenerative disc disease) Decreased hearing of both ears Diabetes Diabetic polyneuropathy Duodenal ulcer Dyslipidemia History of GI bleed Hypertension Incarcerated incisional hernia Morbid obesity Morbilliform rash PUD (peptic ulcer disease) Recurrent UTI Vitamin B deficiency Vitamin D deficiency Surgical History H/O esophagogastroduodenoscopy (~06/05/19) H/O hernia repair History of coronary artery stent placement Cardiac cath on 12/13/2016 with stent placement to LAD Hx of section 3 Hx of cholecystectomy Hx of tonsillectomy S/P appendectomy S/P plastic surgery 2019, panniculectomy Family History Mother CAD (coronary artery disease) Other Hypertension Social History Smoking and tobacco status: former smoker Quit status (tobacco): has quit using tobacco Former quit date comment: 2.5 PPD x 40 yrs Alcohol intake: unknown Lives independently: Yes Household members: spouse Housing: House Marital status: Pets and animals: Yes History of recent travel: No Current gender identity: Female Female Reproductive History: Date of last menstrual period: 06/05/19 Physical Exam Const: COMMON NORMALS: no acute distress GENERAL APPEARANCE: cooperative and comfortable ORIENTATION/CONSCIOUSNESS: Yes awake, Yes oriented to person, Yes oriented to place and Yes oriented to time HENMT: COMMON NORMALS: normocephalic, atraumatic and hearing grossly normal bilaterally HEAD & SCALP: normocephalic and atraumatic Neck/C-Spine: COMMON NORMALS: no JVD Resp: COMMON NORMALS: normal respiratory effort, No retractions, No use of accessory muscles and clear to auscultation bilaterally AUSCULTATION: clear to auscultation bilaterally Cardio: COMMON NORMALS: no JVD, regular rate, regular rhythm and No murmurs present (Cardio) RATE: regular rate RHYTHM: regular rhythm GI: COMMON NORMALS: Soft to palpation and No hepatosplenomegaly present AUSCULTATION: Yes normoactive bowel sounds PALPATION: Yes Soft to palpation, No Tenderness to palpation present (GI), No Guarding due to palpation present (GI) and Yes No hepatosplenomegaly present Extremity: COMMON NORMALS: capillary refill normal, no clubbing, cyanosis or edema, no calf tenderness and no pedal edema NARRATIVE EXTREMITY EXAM: The proximal right humerus consistent with known history of fracture Neuro: SENSORIUM/ORIENTATION: Yes oriented to person, Yes oriented to place and Yes oriented to time Skin: COMMON NORMALS: no rashes or lesions noted GENERAL SKIN EXAM: no rashes or lesions noted Course Vital Signs: Vital signs: Vital Signs Temperature 97.8 F 05/26/20 14:14 Pulse Rate 107 H 05/26/20 18:41 Respiratory Rate 20 H 05/26/20 18:41 Blood Pressure 120/71 05/26/20 18:41 Pulse Oximetry 100 05/26/20 18:41 MDM - General Adult MDM Narrative: Medical decision making narrative: Patient essentially presented wanting to be admitted to the hospital or placed in the fdc. Her fracture does not require hospital admission. We had gone to great lengths to get her placed at the fdc previously and she left after some incidences where she was frustrated with with staff. I asked our leather case finisher to assist and help with some of the history she called the fdc evidently the patient had called local PD stating she was being held there against her well ultimately she decided to leave herself. At this point the fdc refuses to take her back because of her behaviors prior. Discussed this with the patient and on monitors really much we can do for her at this point. She will return home with her and advised her her to follow-up with her primary care doctor for consideration of fdc placement. At this time of day we cannot get her placed in a fdc from the emergency room. She is not appropriate for hospital admission. Discharge Plan Discharge Patient Disposition: Home Clinical Impression: Fracture of proximal end of right humerus Condition: Stable Prescriptions: No Action albuterol sulfate [Ventolin HFA] 90 mcg/actuation HFA aerosol inhaler 2 puff INHALATION Q6H PRN (Reason: Shortness Of Breath) RF: 0 cholecalciferol (vitamin D3) 2,000 unit tablet 2,000 unit PO DAILY@0800 RF: 0 Victoza 2-Gunner 0.6 mg/0.1 mL (18 mg/3 mL) pen injector See Rx Instructions SUBCUT .COMPLEX Qty: 6 RF: 2 hydrocodone-acetaminophen 5-325 mg tablet 1 tab PO Q6H PRN (Reason: pain) 7 Days Qty: 28 RF: 0 (DME) Lift chair See Rx Instructions .Route .MEDSUPPLY Qty: 1 RF: 0 fluconazole [Diflucan] 150 mg tablet 150 mg PO Q3D Qty: 2 RF: 0 sulfamethoxazole-trimethoprim [Bactrim DS] 800-160 mg tablet 1 tab PO BID 10 Days Qty: 20 RF: 0 lisinopril 5 mg tablet 5 mg PO DAILY Qty: 60 RF: 0 nitroglycerin [Nitrostat] 0.4 mg tablet, sublingual 0.4 mg SUBLINGUAL Q5M PRN (Reason: Chest Pain) Qty: 20 RF: 3 insulin aspart U-100 [Novolog U-100 Insulin aspart] 100 unit/mL solution See Rx Instructions .ROUTE .COMPLEX Qty: 30 RF: 3 Levemir U-100 Insulin 100 unit/mL solution See Rx Instructions .ROUTE .COMPLEX Qty: 50 RF: 3 (DME) insulin syr/ndl U100 half juanito 0.3 mL 30 gauge x 1/2 syringe See Rx Instructions .ROUTE .MEDSUPPLY Qty: 100 RF: 3 (DME) lancets [Accu-Chek Softclix Lancets] Misc See Rx Instructions .ROUTE .MEDSUPPLY Qty: 200 RF: 2 (DME) Blood Glucose Test Strip See Rx Instructions .ROUTE .MEDSUPPLY Qty: 100 RF: 2 (DME) lancets Misc See Rx Instructions .ROUTE .MEDSUPPLY Qty: 100 RF: 2 tramadol 50 mg tablet 50 mg PO Q12H PRN (Reason: pain) Qty: 60 RF: 0 tizanidine 4 mg tablet 4 mg PO BID PRN (Reason: muscle spasticity) Qty: 30 RF: 0 polyethylene glycol 3350 [Miralax] 17 gram powder in packet 17 gm PO DAILY PRN (Reason: constipation) Qty: 14 RF: 0 Lasix 40 mg tablet 80 mg PO DAILY@0800 RF: 0 silver sulfadiazine 1 % cream 1 applic topical BID@ RF: 0 sucralfate 1 gram tablet See Rx Instructions .ROUTE .COMPLEX RF: 0 meclizine 25 mg tablet 25 mg PO DAILY@0800 RF: 0 pantoprazole 40 mg tablet,delayed release (DR/EC) 40 mg PO BID@799,1999 RF: 0 mupirocin 2 % ointment 1 applic topical TID@0800,1199,1999 RF: 0 nystatin 100,000 unit/gram powder 1 applic TOPICAL BID@799,1999 RF: 0 fluticasone propionate 50 mcg/actuation spray,suspension 2 spray INTRANASAL DAILY@0800 RF: 0 metoprolol tartrate 25 mg tablet 25 mg PO BID@ RF: 0 potassium chloride 20 mEq tablet extended release 40 meq PO BID@ RF: 0 isosorbide mononitrate 30 mg tablet extended release 24 hr 30 mg PO DAILY@0800 RF: 0 loratadine [Claritin] 10 mg tablet 10 mg PO Q24H PRN (Reason: Allergy Symptoms) RF: 0 atorvastatin 40 mg tablet 40 mg PO DAILY@00 RF: 0 clopidogrel 75 mg tablet 75 mg PO DAILY@ RF: 0 allopurinol 300 mg tablet 300 mg PO BID@ RF: 0 Eliquis 5 mg tablet 5 mg PO BID@ RF: 0 Discharge Orders: Discharge ED (Routine); Ordered 05/26/20 Ordered By: Anthony Mcgill Referrals: Shannon Earl MD [Primary Care Provider] - Discharge Diet: Usual diet Discharge Activity: Limit activity as instructed Patient Instructions: Opioid Safety Activity Restrictions/Additional Instructions: Follow-up with your primary care doctor and orthopedics as previously scheduled Coding Level of Care Code ED Rehabilitation Services Director for [facility]
[2020-05-26 18:41] VITALS: BP 120/71; PULSE 107; RESP 20; O2SAT 100
== END 2020-05-26 20:12 | disposition home or self-care (01) ==
PROVIDERS: Emergency Provider Family Medicine; PCP Family Medicine
DX: S42.201A Unspecified fracture of upper end of right humerus, initial encounter for closed fracture (principal); X58.XXXA Exposure to other specified factors, initial encounter; Z79.01 Long term (current) use of anticoagulants; Z79.02 Long term (current) use of antithrombotics/antiplatelets; Z79.4 Long term (current) use of insulin; I11.0 Hypertensive heart disease with heart failure; I50.9 Heart failure, unspecified; I25.10 Atherosclerotic heart disease of native coronary artery without angina pectoris; E11.42 Type 2 diabetes mellitus with diabetic polyneuropathy; E78.5 Hyperlipidemia, unspecified; Z87.891 Personal history of nicotine dependence
CPT/HCPCS: 73030; 73060; 99282

== ENCOUNTER 2020-05-31 10:08 | Emergency (ER) | payer MEDICARE, MEDICAID, SELFPAY ==
[2020-05-31 10:10] VITALS: BP 124/78; PULSE 108; RESP 18; TEMP 36.8; O2SAT 100; BMI 44.3
--- NOTE | 2020-05-31 10:18 | XRR_ITS ---
PROCEDURE INFORMATION: Exam: XR Chest Exam date and time: 05/31/2020 10:42 AM Age: 70 years old Clinical indication: Cough and dyspnea; Additional info: Dyspnea/cough TECHNIQUE: Imaging protocol: XR of the chest. Views: 1 view. COMPARISON: CT chest abd pel wo con 05/15/2020 4:41 AM FINDINGS: Lungs: Unremarkable. No consolidation. Pleural spaces: Unremarkable. No pleural effusion. No pneumothorax. Heart/Mediastinum: Unremarkable. No cardiomegaly. Bones/joints: Unremarkable. XR/XR chest 1V portable [id number] IMPRESSION: No acute findings.
--- NOTE | 2020-05-31 10:18 | ECG_ITS ---
[facility] Test Date: 2020-05-31 Pat Name: Yesika Sanchez Department: Room: Gender: Female Retirement Consultant: : 1950 Requested By: Anthony Mccabe Order Number: [id number] Reading MD: GARCIA WHITE Measurements Intervals [place] Rate: 102 P: 33 MD: 162 QRS: -52 QRSD: 93 T: 25 QT: 372 QTc: 486 Interpretive Statements SINUS TACHYCARDIA PATTERN CONSISTENT WITH PULMONARY DISEASE LEFT ANTERIOR FASCICULAR BLOCK [QRS AXIS <= -45, QR IN I, RS IN II] Compared to ECG 12/13/2019 22:43:45 No significant changes Electronically Signed On 05-31-2020 19:18:49 CDT by GARCIA WHITE [email or web address]
--- NOTE | 2020-05-31 10:25 | ED_ITS ---
HPI - General Adult General: Chief complaint: Altered Mental Status Stated complaint: AMS Time Seen by Provider: 05/31/20 10:10 History of Present Illness: HPI narrative: 70-year-old female brought in by EMS family has been taking care of her at home [facility] and [facility]. He was seen earlier this week and wanted to go back to the [facility] but we could not make placement for her. She is incontinent of urine. She is not able to answer daytime question. She is aware that she is at home does not want to go back to the [facility]. To make several other odd comments stating she is wearing someone else's underwear. Neighbors noted that something seemed to be wrong with her they went to check on her checked her blood sugar and it was read simply high on the Accu-Chek so they gave 60 units of insulin. Believe it to be short acting insulin but cannot confirm. Onset (ago): minute(s) Relieving factors: none Exacerbating factors: none Associated symptoms: Reports confusion; Deny chest pain, cough, diaphoresis, decreased appetite, dyspnea, fevers/chills, headache(s), malaise, nausea, rash, palpitations, seizures, short of breath, syncope, vomiting or weakness Review of Systems Const: Denies: malaise or diaphoresis ENMT: Denies: throat pain, ear or mastoid pain, nasal discharge or nasal congestion Card: Denies: chest pain, palpitations or syncope Resp: Denies: dyspnea GI: Denies: nausea or vomiting : Denies: flank pain, difficulty voiding, dysuria, urinary frequency or urinary urgency Skin/Breast: Denies: rash Neuro: Reports: confusion; Denies: headache(s) PFSH ED PFSH: Medical History Anxiety ASHD (arteriosclerotic heart disease) Back pain CHF (congestive heart failure) CKD (chronic kidney disease) Coronary artery disease DDD (degenerative disc disease) Decreased hearing of both ears Diabetes Diabetic polyneuropathy Duodenal ulcer Dyslipidemia History of GI bleed Hypertension Incarcerated incisional hernia Morbid obesity Morbilliform rash PUD (peptic ulcer disease) Recurrent UTI Vitamin B deficiency Vitamin D deficiency Surgical History H/O esophagogastroduodenoscopy (~06/05/19) H/O hernia repair History of coronary artery stent placement Cardiac cath on 12/13/2016 with stent placement to LAD Hx of section 3 Hx of cholecystectomy Hx of tonsillectomy S/P appendectomy S/P plastic surgery 2019, panniculectomy Family History Mother CAD (coronary artery disease) Other Hypertension Social History Smoking and tobacco status: former smoker Quit status (tobacco): has quit using tobacco Former quit date comment: 2.5 PPD x 40 yrs Alcohol intake: unknown Lives independently: Yes Household members: spouse Housing: House Marital status: Pets and animals: Yes History of recent travel: No Current gender identity: Female Female Reproductive History: Date of last menstrual period: 06/05/19 Physical Exam Const: COMMON NORMALS: no acute distress GENERAL APPEARANCE: cooperative and comfortable ORIENTATION/CONSCIOUSNESS: Yes awake, Yes oriented to person, Yes oriented to place and Yes oriented to time HENMT: COMMON NORMALS: normocephalic, atraumatic, hearing grossly normal bilaterally, external ears normal, EAC's normal, TM's normal bilaterally, Normal nasal mucous membranes and turbinates present, moist oral mucous membranes and oropharynx normal HEAD & SCALP: normocephalic and atraumatic NOSE: Normal nasal mucous membranes and turbinates present EXTERNAL EAR: Yes external ears normal EXTERNAL AUDITORY CANAL: EAC's normal TYMPANIC MEMBRANE: TM's normal bilaterally Eye: COMMON NORMALS: Equal, round and reactive pupils present, EOMs intact bilaterally, conjunctivae normal and no scleral icterus CONJUNCTIVA: Yes conjunctivae normal PUPIL: Yes Equal, round and reactive pupils present Neck/C-Spine: COMMON NORMALS: full ROM, no lymphadenopathy, supple and no JVD Lymph: LYMPHATIC: no lymphadenopathy noted and no lymphedema noted Resp: COMMON NORMALS: normal respiratory effort, No retractions, No use of accessory muscles and clear to auscultation bilaterally AUSCULTATION: clear to auscultation bilaterally Cardio: COMMON NORMALS: no JVD, regular rate, regular rhythm and No murmurs present (Cardio) RATE: regular rate RHYTHM: regular rhythm GI: COMMON NORMALS: Soft to palpation and No hepatosplenomegaly present AUSCULTATION: Yes normoactive bowel sounds PALPATION: Yes Soft to palpation, No Tenderness to palpation present (GI), No Guarding due to palpation present (GI) and Yes No hepatosplenomegaly present Extremity: COMMON NORMALS: normal to inspection, capillary refill normal, no clubbing, cyanosis or edema, no calf tenderness and no pedal edema Neuro: SENSORIUM/ORIENTATION: Yes oriented to person, Yes oriented to place and Yes oriented to time Skin: COMMON NORMALS: no rashes or lesions noted GENERAL SKIN EXAM: no rashes or lesions noted Course Vital Signs: Vital signs: Vital Signs Temperature 98.2 F 05/31/20 10:10 Pulse Rate 98 05/31/20 14:02 Respiratory Rate 18 05/31/20 14:02 Blood Pressure 112/65 05/31/20 14:02 Pulse Oximetry 100 05/31/20 14:02 MDM - General Adult MDM Narrative: Medical decision making narrative: Initially patient was a little bit altered but then improved. Her glucose improved and is stabilized she is doing well eating well. She is aware of everything going on she remembers the difficulty we had with placement that she left the [facility] that were unable to get [facility] into the [facility] the family's been taking care of her. She wishes to go back home not really have anything we need to admit her for her encouraged her to monitor blood sugars closely follow-up with your primary care return if has problems. She has an appointment with wound care upcoming encouraged her strongly to keep that appointment. Lab Data: Labs: Lab Results 05/31/20 05/31/20 05/31/20 Range/Units 10:12 10:30 10:31 WBC (4.0-10.0) 10^3/ uL RBC (4.1-5.3) 10^6/u L Hgb (11.5-15.3) g/dL Hct (37.0-47.0) % MCV (81-99) fL MCH (28.0-34.0) pg MCHC (30.0-36.0) g/dL RDW (12.1-15.1) % Plt Count (130-400) 10^3/c mm MPV (7.4-10.4) fL Neut % (Auto) % Lymph % (Auto) % [place] % (Auto) % Eos % (Auto) % Baso % (Auto) % Neut # (Auto) (1.8-7.7) 10^3/u L Lymph # (Auto) (0.8-4.8) 10^3/u L [place] # (Auto) (0.2-0.9) 10^3/u L Eos # (Auto) (0.0-0.8) 10^3/u L Baso # (Auto) (0.0-0.1) 10^3/u L Nucleated RBC % (a uto) % Nucleated RBCs # /100WBC Specimen Type Arterial Sample Site Radial, left ABG pH 7.48 H (7.35-7.45) ABG pCO2 34.7 L (35-45) mmHg ABG pO2 88.1 (80.0-100.0) mmH g ABG HCO3 25.7 (22-26) mmol/L ABG O2 Saturation 97.9 ABG Base Excess 2.3 H (-2.0-2.0) mmol/ L See Test Pos A-a O2 Gradient 2.1 L (5-10) mmHg Hematocrit 32.6 L (37-47) % Hgb O2 Saturation 95.7 (95-100) % Carboxyhemoglobin 1.4 (0.4-20.1) %THgb Methemoglobin 0.8 (0.4-1.5) % Total Hemoglobin 10.6 L (12-16) g/dL Sodium 140.0 (131-143) mmol/L Potassium 4.0 (3.5-5.0) mmol/L Glucose 89.0 (70-115) mg/dL Ionized Calcium 1.5 H (1.1-1.4) mmol/L O2 Delivery Device Room air FiO2 21.0 % Chicken Sexer ID Amh Chloride (98-107) mmol/L Carbon Dioxide (22-29) mmol/L Anion Gap (5-19) BUN (8-23) mg/dL Creatinine (0.5-0.9) mg/dL GFR Calculation POC Glucose 69 L (70-110) mg/dL Calculated Osmolal ity (285-295) mOsm/k g Lactic Acid (0.5-2.2) mmol/L Calcium (8.5-10.5) mg/dL Magnesium (1.7-2.3) mg/dL Total Bilirubin (0.15-1.2) mg/dL AST (0-32) U/L ALT (0-33) U/L Alkaline Phosphata se (35-105) IU/L Creatine Kinase (26-192) U/L Total Protein (6.6-8.7) g/dL Albumin (3.5-5.2) g/dL Globulin (1.3-4.6) g/dL Urine Color Yellow (Yellow) Urine Appearance Clear (CLEAR) Urine pH 5 (5-7) Ur Specific Gravit y 1.020 (1.005-1.030) Urine Protein Neg (Negative) Urine Glucose (UA) 2+ (Normal) Urine Ketones Negative (Negative) Urine Blood Neg (Negative) Urine Nitrate Negative (Negative) Urine Bilirubin Neg (Negative) Urine Urobilinogen 1 H (Negative) mg/dL Ur Leukocyte Rema ase Negative (Negative) Serum Ketones (Negative) 05/31/20 05/31/20 05/31/20 Range/Units 11:50 11:50 11:50 WBC 9.8 (4.0-10.0) 10^3/ uL RBC 2.97 L (4.1-5.3) 10^6/u L Hgb 10.4 L (11.5-15.3) g/dL Hct 31.8 L (37.0-47.0) % MCV 107.1 H (81-99) fL MCH 35.0 H (28.0-34.0) pg MCHC 32.7 (30.0-36.0) g/dL RDW 14.1 (12.1-15.1) % Plt Count 123 L (130-400) 10^3/c mm MPV 9.5 (7.4-10.4) fL Neut % (Auto) 89.0 % Lymph % (Auto) 5.6 % [place] % (Auto) 4.6 % Eos % (Auto) 0.3 % Baso % (Auto) 0.1 % Neut # (Auto) 8.76 H (1.8-7.7) 10^3/u L Lymph # (Auto) 0.6 L (0.8-4.8) 10^3/u L [place] # (Auto) 0.5 (0.2-0.9) 10^3/u L Eos # (Auto) 0.0 (0.0-0.8) 10^3/u L Baso # (Auto) 0.0 (0.0-0.1) 10^3/u L Nucleated RBC % (a uto) 0 % Nucleated RBCs # 0.0 /100WBC Specimen Type Sample Site ABG pH (7.35-7.45) ABG pCO2 (35-45) mmHg ABG pO2 (80.0-100.0) mmH g ABG HCO3 (22-26) mmol/L ABG O2 Saturation ABG Base Excess (-2.0-2.0) mmol/ L See Test A-a O2 Gradient (5-10) mmHg Hematocrit (37-47) % Hgb O2 Saturation (95-100) % Carboxyhemoglobin (0.4-20.1) %THgb Methemoglobin (0.4-1.5) % Total Hemoglobin (12-16) g/dL Sodium 142 (131-143) mmol/L Potassium 4.6 (3.5-5.0) mmol/L Glucose 99 (70-115) mg/dL Ionized Calcium (1.1-1.4) mmol/L O2 Delivery Device FiO2 % Chicken Sexer ID Chloride 105 (98-107) mmol/L Carbon Dioxide 28 (22-29) mmol/L Anion Gap 13.6 (5-19) BUN 19 (8-23) mg/dL Creatinine 0.7 (0.5-0.9) mg/dL GFR Calculation Not Reportable POC Glucose (70-110) mg/dL Calculated Osmolal ity 296 H (285-295) mOsm/k g Lactic Acid 1.2 (0.5-2.2) mmol/L Calcium 10.4 (8.5-10.5) mg/dL Magnesium 1.3 L (1.7-2.3) mg/dL Total Bilirubin 1.1 (0.15-1.2) mg/dL AST 20 (0-32) U/L ALT 13 (0-33) U/L Alkaline Phosphata se 270 H (35-105) IU/L Creatine Kinase 55 (26-192) U/L Total Protein 6.1 L (6.6-8.7) g/dL Albumin 3.1 L (3.5-5.2) g/dL Globulin 3.0 (1.3-4.6) g/dL Urine Color (Yellow) Urine Appearance (CLEAR) Urine pH (5-7) Ur Specific Gravit y (1.005-1.030) Urine Protein (Negative) Urine Glucose (UA) (Normal) Urine Ketones (Negative) Urine Blood (Negative) Urine Nitrate (Negative) Urine Bilirubin (Negative) Urine Urobilinogen (Negative) mg/dL Ur Leukocyte Rema ase (Negative) Serum Ketones (Negative) 05/31/20 05/31/20 Range/Units 11:50 12:55 WBC (4.0-10.0) 10^3/ uL RBC (4.1-5.3) 10^6/u L Hgb (11.5-15.3) g/dL Hct (37.0-47.0) % MCV (81-99) fL MCH (28.0-34.0) pg MCHC (30.0-36.0) g/dL RDW (12.1-15.1) % Plt Count (130-400) 10^3/c mm MPV (7.4-10.4) fL Neut % (Auto) % Lymph % (Auto) % [place] % (Auto) % Eos % (Auto) % Baso % (Auto) % Neut # (Auto) (1.8-7.7) 10^3/u L Lymph # (Auto) (0.8-4.8) 10^3/u L [place] # (Auto) (0.2-0.9) 10^3/u L Eos # (Auto) (0.0-0.8) 10^3/u L Baso # (Auto) (0.0-0.1) 10^3/u L Nucleated RBC % (a uto) % Nucleated RBCs # /100WBC Specimen Type Sample Site ABG pH (7.35-7.45) ABG pCO2 (35-45) mmHg ABG pO2 (80.0-100.0) mmH g ABG HCO3 (22-26) mmol/L ABG O2 Saturation ABG Base Excess (-2.0-2.0) mmol/ L See Test A-a O2 Gradient (5-10) mmHg Hematocrit (37-47) % Hgb O2 Saturation (95-100) % Carboxyhemoglobin (0.4-20.1) %THgb Methemoglobin (0.4-1.5) % Total Hemoglobin (12-16) g/dL Sodium (131-143) mmol/L Potassium (3.5-5.0) mmol/L Glucose (70-115) mg/dL Ionized Calcium (1.1-1.4) mmol/L O2 Delivery Device FiO2 % Chicken Sexer ID Chloride (98-107) mmol/L Carbon Dioxide (22-29) mmol/L Anion Gap (5-19) BUN (8-23) mg/dL Creatinine (0.5-0.9) mg/dL GFR Calculation POC Glucose 111 H (70-110) mg/dL Calculated Osmolal ity (285-295) mOsm/k g Lactic Acid (0.5-2.2) mmol/L Calcium (8.5-10.5) mg/dL Magnesium (1.7-2.3) mg/dL Total Bilirubin (0.15-1.2) mg/dL AST (0-32) U/L ALT (0-33) U/L Alkaline Phosphata se (35-105) IU/L Creatine Kinase (26-192) U/L Total Protein (6.6-8.7) g/dL Albumin (3.5-5.2) g/dL Globulin (1.3-4.6) g/dL Urine Color (Yellow) Urine Appearance (CLEAR) Urine pH (5-7) Ur Specific Gravit y (1.005-1.030) Urine Protein (Negative) Urine Glucose (UA) (Normal) Urine Ketones (Negative) Urine Blood (Negative) Urine Nitrate (Negative) Urine Bilirubin (Negative) Urine Urobilinogen (Negative) mg/dL Ur Leukocyte Rema ase (Negative) Serum Ketones Negative (Negative) Discharge Plan Discharge Patient Disposition: Home Clinical Impression: Hypoglycemia, Diabetes, Cellulitis of left foot, Fracture of proximal end of right humerus Condition: Stable Prescriptions: No Action albuterol sulfate [Ventolin HFA] 90 mcg/actuation HFA aerosol inhaler 2 puff INHALATION Q6H PRN (Reason: Shortness Of Breath) RF: 0 Victoza 2-Gunner 0.6 mg/0.1 mL (18 mg/3 mL) pen injector See Rx Instructions SUBCUT .COMPLEX Qty: 6 RF: 2 (DME) Lift chair See Rx Instructions .Route .MEDSUPPLY Qty: 1 RF: 0 fluconazole [Diflucan] 150 mg tablet 150 mg PO Q3D Qty: 2 RF: 0 sulfamethoxazole-trimethoprim [Bactrim DS] 800-160 mg tablet 1 tab PO BID 10 Days Qty: 20 RF: 0 lisinopril 5 mg tablet 5 mg PO DAILY Qty: 60 RF: 0 nitroglycerin [Nitrostat] 0.4 mg tablet, sublingual 0.4 mg SUBLINGUAL Q5M PRN (Reason: Chest Pain) Qty: 20 RF: 3 insulin aspart U-100 [Novolog U-100 Insulin aspart] 100 unit/mL solution See Rx Instructions .ROUTE .COMPLEX Qty: 30 RF: 3 (DME) insulin syr/ndl U100 half juanito 0.3 mL 30 gauge x 1/2 syringe See Rx Instructions .ROUTE .MEDSUPPLY Qty: 100 RF: 3 (DME) lancets [Accu-Chek Softclix Lancets] Misc See Rx Instructions .ROUTE .MEDSUPPLY Qty: 200 RF: 2 (DME) Blood Glucose Test Strip See Rx Instructions .ROUTE .MEDSUPPLY Qty: 100 RF: 2 (DME) lancets Misc See Rx Instructions .ROUTE .MEDSUPPLY Qty: 100 RF: 2 tramadol 50 mg tablet 50 mg PO Q12H PRN (Reason: pain) Qty: 60 RF: 0 tizanidine 4 mg tablet 4 mg PO BID PRN (Reason: muscle spasticity) Qty: 30 RF: 0 polyethylene glycol 3350 [Miralax] 17 gram powder in packet 17 gm PO DAILY PRN (Reason: constipation) Qty: 14 RF: 0 sucralfate 1 gram tablet 1 g PO QID RF: 0 meclizine 25 mg tablet 25 mg PO TID PRN (Reason: Dizziness) RF: 0 pantoprazole 40 mg tablet,delayed release (DR/EC) 40 mg PO BID RF: 0 metoprolol tartrate 25 mg tablet 25 mg PO BID RF: 0 potassium chloride 20 mEq tablet extended release 40 meq PO BID RF: 0 isosorbide mononitrate 30 mg tablet extended release 24 hr 30 mg PO DAILY RF: 0 atorvastatin 40 mg tablet 40 mg PO DAILY RF: 0 clopidogrel 75 mg tablet 75 mg PO DAILY RF: 0 allopurinol 300 mg tablet 300 mg PO BID RF: 0 Eliquis 5 mg tablet 5 mg PO BID RF: 0 ibuprofen 800 mg Tablet 800 mg PO ONCE RF: 0 Lasix 80 mg Tablet 80 mg PO DAILY RF: 0 hydrocodone-acetaminophen 5-325 mg tablet 1 - 2 tab PO Q6H PRN (Reason: pain) RF: 0 Levemir U-100 Insulin 100 unit/mL solution 60 unit SUBCUT BID RF: 0 Discharge Orders: Discharge ED (Routine); Ordered 05/31/20 Ordered By: Anthony Mcgill Referrals: Shannon Earl MD [Primary Care Provider] - Patient Instructions: Opioid Safety Activity Restrictions/Additional Instructions: Monitor blood sugars closely use appropriate sliding scale. Keep appointment with wound care as scheduled. Continue to wear arm sling for the previously diagnosed proximal humerus fracture. Coding Level of Care Code ED Residential Leasing Manager for Rsoa Lopez
[2020-05-31 10:35] LABS: Glucose Point of Care 69 mg/dL (70-110)
[2020-05-31 10:43] LABS: ABG PCO2 34.7 mmHg (35-45); ABG PH Result 7.48 (7.35-7.45); Alveolar-Arterial Oxygen Gradi 2.1 mmHg (5-10); Arterial Blood Gas Hematocrit 32.6 % (37-47); Base Excess ABG 2.3 mmol/L (-2.0-2.0); Blood Gas Allen Test Pos; Blood Gas Operator Identificat AMH; Blood Gas Sample Site Radial, left; Blood Gas Sample Type Arterial; Carboxyhemoglobin 1.4 %THgb (0.4-20.1); HCO3 ABG 25.7 mmol/L (22-26); HGB O2 Sat 95.7 % (95-100); Ionized Calcium Level - ABG 1.5 mmol/L (1.1-1.4); Methemoglobin 0.8 % (0.4-1.5); Oxygen Device ROOM AIR; Oxygen Saturation ABG 97.9; PO2 ABG 88.1 mmHg (80.0-100.0); Total Hemoglobin 10.6 g/dL (12-16)
[2020-05-31 10:53] LABS: Add Urine Microscopic? NO; Charge for UA Resulting for Rev
[2020-05-31 11:07] LABS: Urine Appearance Clear (CLEAR); Urine Color Yellow (Yellow); pH Urine 5 (5-7)
[2020-05-31 11:08] LABS: Bilirubin Urine Neg (Negative); Blood Urine Neg (Negative); Ketones Urine Negative (Negative); Nitrate Urine Negative (Negative); Protein Urine Neg (Negative); Urobilinogen Urine 1 mg/dL (Negative)
[2020-05-31 11:09] LABS: Glucose Urine UA 2+ (Normal); Leukocyte Esterase Urine Negative (Negative)
[2020-05-31] MEDS: ondansetron 2 mg/ML SDV 2 mL 4 MG IVP (11:47)
[2020-05-31 11:55] VITALS: BP 158/91; PULSE 100; RESP 20; O2SAT 100
[2020-05-31 12:05] LABS: Basophils % 0.1 %; Eosinophils % 0.3 %; Hematocrit 31.8 % (37.0-47.0); Hemoglobin 10.4 g/dL (11.5-15.3); Lymphocytes # 0.6 10^3/uL (0.8-4.8); Lymphocytes % 5.6 %; Mean Corpuscular HGB Conc 32.7 g/dL (30.0-36.0); Mean Corpuscular Volume 107.1 fL (81-99); Mean Platelet Volume 9.5 fL (7.4-10.4); Monocytes # 0.5 10^3/uL (0.2-0.9); Monocytes % 4.6 %; Neutrophils # 8.76 10^3/uL (1.8-7.7); Nucleated Red Blood Cells % 0 %; Platelet Count 123 10^3/cmm (130-400); Red Blood Count 2.97 10^6/uL (4.1-5.3); Red Cell Distribution Width 14.1 % (12.1-15.1); White Blood Count 9.8 10^3/uL (4.0-10.0)
[2020-05-31 12:23] LABS: Lactic Sepsis W/Reflex 1.2 mmol/L (0.5-2.2)
[2020-05-31 12:24] LABS: Alanine Aminotransferase 13 U/L (0-33); Albumin Level 3.1 g/dL (3.5-5.2); Alkaline Phosphatase 270 IU/L (35-105); Anion Gap 13.6 (5-19); Aspartate Amino Transferase 20 U/L (0-32); Blood Urea Nitrogen 19 mg/dL (8-23); Calcium 10.4 mg/dL (8.5-10.5); Carbon Dioxide 28 mmol/L (22-29); Chloride 105 mmol/L (98-107); Creatine Phosphokinase 55 U/L (26-192); Glucose 99 mg/dL (65-115); Magnesium 1.3 mg/dL (1.7-2.3); Osmolality Calculated 296 mOsm/kg (285-295); Potassium 4.6 mmol/L (3.5-5.1); Sodium 142 mmol/L (136-145); Total Bilirubin 1.1 mg/dL (0.15-1.2); Total Protein 6.1 g/dL (6.6-8.7)
[2020-05-31 12:27] LABS: Ketone (Acetest) Serum Negative (Negative)
--- NOTE | 2020-05-31 12:37 | PC.PHAR ---
PT UNABLE TO VERIFY MEDICATIONS-PTS FRIEND STATES THE PT IS STAYING WITH HIM SINCE TUESDAY-PTS FRIEND STATES THE PT WASNT ALLOWED TO TAKE ALL HER MEDICATIONS WITH HER WHEN SHE LEFT HER HOUSE-PTS FRIEND STATES THE PT ONLY HAS HER NOVOLOG AND LEVEMIR INSULIN THAT SHE BROUGHT WITH HER-STATES THEY ARE WORKING ON GETTING HER OTHER MEDS-PTS FRIEND STATES HE TOOK THE PT TO THE DR ON Tuesday05/29/[address] GAVE HER DIFLUCAN AND BACTRIM DS AND STATES THE PT HAS BEEN TAKING THOSE MEDICATIONS ALONG WITH HER INSULIN-MEDICATIONS ENTERED ARE MEDS THAT SHOW UP ON EXT MED HISTORY-PT STATES SHE IS ALLERGIC TO IRON-EXT MED HISTORY SHOWS FERROUS GLUCONATE 324MG RID FILLED ON 05/12/20 30D/S PT STATES SHE THROWS UP WITH THAT MEDICATION AND WONT TAKE IT
[2020-05-31 12:59] LABS: Glucose Point of Care 111 mg/dL (70-110)
[2020-05-31 14:02] VITALS: BP 112/65; PULSE 98; RESP 18; O2SAT 100
== END 2020-05-31 14:10 | disposition home or self-care (01) ==
PROVIDERS: Emergency Provider Family Medicine; PCP Family Medicine
DX: E11.649 Type 2 diabetes mellitus with hypoglycemia without coma (principal); L03.116 Cellulitis of left lower limb; S42.201A Unspecified fracture of upper end of right humerus, initial encounter for closed fracture; Z79.01 Long term (current) use of anticoagulants; Z79.02 Long term (current) use of antithrombotics/antiplatelets; Z79.4 Long term (current) use of insulin; I11.0 Hypertensive heart disease with heart failure; I50.9 Heart failure, unspecified; I25.10 Atherosclerotic heart disease of native coronary artery without angina pectoris; E11.42 Type 2 diabetes mellitus with diabetic polyneuropathy; E78.5 Hyperlipidemia, unspecified; Z87.891 Personal history of nicotine dependence; X58.XXXA Exposure to other specified factors, initial encounter
CPT/HCPCS: 36416; 36600; 71045; 80051; 80053; 81003; 82009; 82330; 82550; 82805; 82962; 83605; 83735; 85025; 93005; 96374; 99284; J2405

== ENCOUNTER → 2020-06-16 12:16 | Outpatient (BNVA) | payer MEDICARE, MEDICAID, SELFPAY | PROVIDERS: PCP Family Medicine; Visit Provider Family Medicine | DX: E11.9 Type 2 diabetes mellitus without complications (principal); R41.0 Disorientation, unspecified; R60.9 Edema, unspecified; I82.409 Acute embolism and thrombosis of unspecified deep veins of unspecified lower extremity | CPT/HCPCS: 36416; 82962 ==

== ENCOUNTER 2020-06-26 16:58 | Inpatient (IN) | payer MEDICARE, MEDICAID, SELFPAY ==
[2020-06-26] VITALS (23 sets, daily range): BP systolic 104–173; BP diastolic 67–142; PULSE 84–102; RESP 13–24; TEMP 36.6–37.4; O2SAT 92–100; BMI 29.5
--- NOTE | 2020-06-26 17:28 | XRR_ITS ---
PROCEDURE INFORMATION: Exam: XR Right Shoulder Exam date and time: 06/26/2020 5:29 PM Age: 70 years old Clinical indication: Pain; Shoulder; Right; Additional info: HX fracture C/O pain TECHNIQUE: Imaging protocol: XR Right shoulder. Views: 2 or more views. COMPARISON: CR XR shoulder RT min 2V* [id number] 06/05/2020 2:40 PM FINDINGS: Bones/joints: The comminuted displaced fracture involving the right humeral neck and superolateral humeral head are unchanged in position. There is incomplete healing of the fracture with stable mild bone callus formation along the humeral neck fracture. No acute fracture. Soft tissues: Normal. XR/XR shoulder RT min 2V* [id number] IMPRESSION: 1. Incomplete healing of the comminuted proximal right humerus fracture.
[2020-06-26 17:50] LABS: Add Urine Microscopic? YES; Bilirubin Urine Neg (Negative); Blood Urine 3+ (Negative); Glucose Urine UA 4+ (Normal); Ketones Urine Negative (Negative); Leukocyte Esterase Urine 2+ (Negative); Nitrate Urine Negative (Negative); Protein Urine Neg (Negative); Urine Appearance Cloudy (CLEAR); Urine Color Other (Yellow); Urobilinogen Urine Norm (Negative); pH Urine 5 (5-7)
[2020-06-26 17:55] LABS: Add Urine Culture? Yes; Amphetamines Screen Urine Negative (Negative); Bacteria Urine 2+ /hpf; Barbiturates Screen Urine Negative (Negative); Benzodiazepines Screen Urine Negative (Negative); Cocaine Screen Urine Negative (Negative); Opiate Screen Urine Positive (Negative); PCP Screen Urine Negative (Negative); RBC Urine TOO NUMEROUS TO CNT /hpf (0-2); Squamous Epithelial Cell Urine 0-4 /hpf (0-5); THC Screen Urine Negative (Negative)
--- NOTE | 2020-06-26 18:00 | XRR_ITS ---
PROCEDURE INFORMATION: Exam: XR Left Foot Exam date and time: 06/26/2020 6:11 PM Age: 70 years old Clinical indication: Swelling, leg or foot; Additional info: Erythema. Osteomyelitis? TECHNIQUE: Imaging protocol: XR Left foot. Views: 1 or 2 views. COMPARISON: CR XR knees AP WB w LT lmt ORTH 05/18/2019 9:43 AM FINDINGS: Bones/joints: The bones are intact and in normal alignment. Calcaneus spur. Limited visualization of the distal tarsal row and bases of the metatarsals due to obliquity and overlapping of the structures. Soft tissues: Soft tissue swelling in the dorsal foot and in the ankle. Vasculature: Vascular calcifications. Other findings: Two views submitted. XR/XR foot LT 2V [id number] IMPRESSION: No visible fracture.
--- NOTE | 2020-06-26 18:01 | ECG_ITS ---
[facility] Test Date: 2020-06-26 Pat Name: Yesika Sanchez Department: Room: Gender: Female Research Psychologist: : 1950 Requested By: Kush Rothman Order Number: [id number] Mariaa MD: Bobbi Chandra M.D. Measurements Intervals [place] Rate: 106 P: 23 MI: 151 QRS: 3 QRSD: 93 T: 124 QT: 335 QTc: 446 Interpretive Statements SINUS TACHYCARDIA LOW QRS VOLTAGE IN PRECORDIAL LEADS [QRS DEFLECTION < 1.0 mV IN CHEST LEADS] NONSPECIFIC ST & T-WAVE ABNORMALITY Compared to ECG 05/31/2020 11:59:37 Low QRS voltage now present T-wave abnormality now present Left anterior fascicular block no longer present Electronically Signed On 06-26-2020 23:53:42 CDT by Bobbi Chandra M.D. [email or web address]
--- NOTE | 2020-06-26 18:04 | CTR_ITS ---
PROCEDURE INFORMATION: Exam: CT Abdomen And Pelvis Without Contrast Exam date and time: 06/26/2020 6:09 PM Age: 70 years old Clinical indication: Abdominal pain; Localized; Lower; Prior surgery; Surgery type: , gb; Additional info: Abd tenderness. Lower abd pain TECHNIQUE: Imaging protocol: Computed tomography of the abdomen and pelvis without contrast. Radiation optimization: All CT scans at this facility use at least one of these dose optimization techniques: automated exposure control; mA and/or kV adjustment per patient size (includes targeted exams where dose is matched to clinical indication); or iterative reconstruction. COMPARISON: CT chest abd pel wo con 05/15/2020 4:41 AM , 05/04/2017 RADIATION DOSE METRICS: Total DLP (mGy-cm): 2754.4 FINDINGS: Liver: Normal. No mass. Gallbladder and bile ducts: The gallbladder is absent. The bile ducts are normal. Pancreas: Normal. No ductal dilation. Spleen: Normal. No splenomegaly. Adrenal glands: 2.2 cm left adrenal nodule, unchanged since 05/04/2017 and considered benign. The right adrenal is normal. Kidneys and ureters: 3 mm nonobstructing right renal calculus. Fluid density cysts in both kidneys, Hounsfield units less than 20. No ureteral calculus or hydronephrosis. Stomach and bowel: There is segmental wall thickening and mild narrowing in an approximate 13 cm long segment of proximal transverse colon. The stomach and small bowel are unremarkable. Appendix: The appendix is visualized and is normal. Intraperitoneal space: Unremarkable. No free air. No significant fluid collection. Vasculature: Coronary artery calcifications. Atherosclerotic calcifications. No aneurysm. Lymph nodes: Unremarkable. No enlarged lymph nodes. Urinary bladder: Unremarkable as visualized. Reproductive: Unremarkable as visualized. Bones/joints: Degenerative spine. No fracture identified. Soft tissues: Stable scarring and fibrosis along the anterior laparotomy scar. Stable small fat containing incisional hernia. CT/CT abdomen pelvis wo con [id number] IMPRESSION: 1. Segmental wall thickening in the proximal transverse colon. This could represent infectious versus inflammatory colitis. Consider follow-up with colonoscopy. 2. Diverticulosis of the distal colon. 3. Stable benign 2.2 cm left adrenal nodule. COMMENTS: Consistent with the [employer]'s Incidental Findings Committee white paper (J Am Valentín Radiol 2018): Any incidental renal lesion less than 1 cm or classified as too small to characterize, or any incidental cystic renal lesion characterized as simple-appearing, is likely benign. No follow-up imaging is recommended for these lesions per consensus recommendations based on imaging criteria. Radiation Dose CTDIVOL = (mGy): DLP = 2754.4 (mGy-cm)
[2020-06-26 18:14] LABS: Basophils % 0.4 %; Eosinophils % 0.8 %; Hematocrit 30.6 % (37.0-47.0); Hemoglobin 9.9 g/dL (11.5-15.3); Lymphocytes # 1.2 10^3/uL (0.8-4.8); Lymphocytes % 23.9 %; Mean Corpuscular HGB Conc 32.4 g/dL (30.0-36.0); Mean Corpuscular Hemoglobin 34.3 pg (28.0-34.0); Mean Corpuscular Volume 105.9 fL (81-99); Mean Platelet Volume 10.1 fL (7.4-10.4); Monocytes # 0.6 10^3/uL (0.2-0.9); Monocytes % 12.2 %; Neutrophils # 3.14 10^3/uL (1.8-7.7); Neutrophils % 62.5 %; Nucleated Red Blood Cells % 0 %; Platelet Count 131 10^3/cmm (130-400); Red Blood Count 2.89 10^6/uL (4.1-5.3); Red Cell Distribution Width 14.3 % (12.1-15.1)
[2020-06-26 18:45] LABS: Alanine Aminotransferase 9 U/L (0-33); Albumin Level 2.9 g/dL (3.5-5.2); Alkaline Phosphatase 227 IU/L (35-105); Anion Gap 17.1 (5-19); Aspartate Amino Transferase 14 U/L (0-32); Blood Urea Nitrogen 60 mg/dL (8-23); Calcium 9.7 mg/dL (8.5-10.5); Carbon Dioxide 23 mmol/L (22-29); Chloride 97 mmol/L (98-107); Globulin 3.7 g/dL (1.3-4.6); Glucose 452 mg/dL (65-115); Lipase 20 U/L (13-60); NT Pro B Type Natriuretic Pept 290 pg/mL (0-125); Osmolality Calculated 311 mOsm/kg (285-295); Potassium 5.1 mmol/L (3.5-5.1); Sodium 132 mmol/L (136-145); Thyroid Stimulating Hormone 1.91 uIU/mL (0.27-4.20); Total Bilirubin 0.6 mg/dL (0.15-1.2); Total Protein 6.6 g/dL (6.6-8.7)
[2020-06-26 18:48] LABS: Acetaminophen < 5.0 ug/mL (10-30); Salicylate < 0.3 mg/dL (3-10)
--- NOTE | 2020-06-26 18:49 | PC.PHAR ---
PT STATES SHE HAS A FRIEND NAMED GENEVA REYES WHO HELPED HER WITH HER MEDICATIONS-GENEVA STATES THE PT REFUSES TO TAKE VICTOZA TILL HER OTHER INSULINS WERE GONE-PT HAS NO CLUE WHAT UNITS SHE TAKES ON HER INSULIN AND STATES SHE TOOK SOME KIND OF INSULIN TODAY-GENEVA STATES THE PT DIDNT HAVE ANY INSULIN TODAY
[2020-06-26 19:01] LABS: Troponin(5th) Baseline 49 ng/L (0-10)
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
[2020-06-26 22:57] LABS: Glucose Point of Care 534 mg/dL (70-110)
[2020-06-26] MEDS: HYDROcodone-acetaminophen 5-325 mg Tablet 1 TAB PO (23:30)
[2020-06-26] MEDS: meropenem 1,000 MG in sodium chloride 0.9% (plus) 50 ML 100 MG IV (23:31)
[2020-06-26] MEDS: morphine 4 mg/mL SDV 1 mL 2 MG IVP (23:57)
[2020-06-27] VITALS (156 sets, daily range): BP systolic 69–132; BP diastolic 31–77; PULSE 63–106; RESP 10–25; TEMP 36.4–37.1; O2SAT 45–100
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
[2020-06-27 04:58] LABS: Basophils % 0.7 %; Eosinophils # 0.1 10^3/uL (0.0-0.8); Hematocrit 24.9 % (37.0-47.0); Hemoglobin 8.2 g/dL (11.5-15.3); Lymphocytes # 1.5 10^3/uL (0.8-4.8); Lymphocytes % 33.2 %; Mean Corpuscular HGB Conc 32.9 g/dL (30.0-36.0); Mean Corpuscular Volume 103.3 fL (81-99); Monocytes # 0.7 10^3/uL (0.2-0.9); Monocytes % 16.2 %; Neutrophils # 2.04 10^3/uL (1.8-7.7); Neutrophils % 46.7 %; Nucleated Red Blood Cells % 0 %; Platelet Count 98 10^3/cmm (130-400); Red Blood Count 2.41 10^6/uL (4.1-5.3); White Blood Count 4.4 10^3/uL (4.0-10.0)
[2020-06-27 05:23] LABS: Anion Gap 11.2 (5-19); Blood Urea Nitrogen 51 mg/dL (8-23); Calcium 9.3 mg/dL (8.5-10.5); Carbon Dioxide 27 mmol/L (22-29); Chloride 99 mmol/L (98-107); Glucose 320 mg/dL (65-115); Magnesium 1.2 mg/dL (1.7-2.3); Osmolality Calculated 302 mOsm/kg (285-295); Phosphorus 1.7 mg/dL (2.5-4.5); Potassium 4.2 mmol/L (3.5-5.1); Sodium 133 mmol/L (136-145); Thyroid Stimulating Hormone 3.26 uIU/mL (0.27-4.20)
[2020-06-27 05:25] LABS: Estmated Average Glucose 160; Hemoglobin A1C 7.2 % (4.0-6.0)
[2020-06-27] MEDS: atorvastatin 40 mg Tablet PO (06:04)
[2020-06-27] MEDS: FUROsemide 40 mg Tablet 80 MG PO (06:04)
[2020-06-27] MEDS: clopidogrel 75 mg Tablet PO (06:04)
[2020-06-27] MEDS: meropenem 1,000 MG in sodium chloride 0.9% (plus) 50 ML 100 MG IV ×3 (06:04→23:43)
[2020-06-27 07:53] LABS: Glucose Point of Care 409 mg/dL (70-110)
[2020-06-27] MEDS: apixaban 5 mg Tablet PO ×2 (08:51→17:24)
[2020-06-27] MEDS: metoprolol tartrate 25 mg Tablet PO ×2 (08:51→17:24)
[2020-06-27] MEDS: pantoprazole DR 40 mg Tablet PO ×2 (08:52→17:24)
[2020-06-27] MEDS: sucralfate 1 gm Tablet PO ×4 (08:52→20:55)
[2020-06-27] MEDS: HYDROcodone-acetaminophen 5-325 mg Tablet 1 TAB PO ×3 (08:57→19:41)
--- NOTE | 2020-06-27 09:25 | USCV_ITS ---
Yesika Sanchez Age: 70 Gender: F : 1950 Exam Date: 06/27/2020 14:38 Ordering Phys: Henrique Nobles MD Technologist: LEATHA Exam Location: [facility] [place] Indication: PHTN BP: 78 / 42 HR: 75 Rhythm: Sinus Technical Quality: Technically difficult study MEASUREMENTS (Male / Female) Normal Values 2D ECHO LV Diastolic Diameter PLAX 4.5 cm 4.2 - 5.9 / 3.9 - 5.3 cm LV Systolic Diameter PLAX 2.1 cm IVS Diastolic Thickness 1.2 cm 0.6 - 1.0 / 0.6 - 0.9 cm IVS Systolic Thickness 1.6 cm LVPW Diastolic Thickness 0.7 cm 0.6 - 1.0 / 0.6 - 0.9 cm LVPW Systolic Thickness 1.8 cm LVOT Diameter 2.1 cm LV Ejection Fraction 2D Teich 85.5 % LV Ejection Fraction MOD 2C 63.5 % LV Ejection Fraction 2C AL 61.4 % LA Diameter 4.0 cm LA Width 3.5 cm LA Height 5.8 cm RA Width 3.7 cm RA Height 5.4 cm M-MODE LV Diastolic Diameter MM 3.8 cm 4.2 - 5.9 / 3.9 - 5.3 cm LV Systolic Diameter MM 2.2 cm LV Ejection Fraction MM Teich 72.9 % IVS Diastolic Thickness MM 1.6 cm 0.6 - 1.0 / 0.6 - 0.9 cm IVS Systolic Thickness MM 2.1 cm LVPW Diastolic Thickness MM 1.2 cm 0.6 - 1.0 / 0.6 - 0.9 cm LVPW Systolic Thickness MM 1.9 cm Aortic Annulus Diameter 3.7 cm LA Ao Ratio MM 1.0 DOPPLER AV Peak Velocity 163.0 cm/s LVOT Peak Velocity 103.0 cm/s AV Area Cont Eq vti 2.9 cm squared AV Area Cont Eq pk 2.3 cm squared MV Peak Velocity 136.0 cm/s MV Area PHT 3.5 cm squared Mitral E to A Ratio 0.9 MV E' Velocity 44.5 cm/s Mitral E to MV E' Ratio 12.2 Mitral E to LV E' Lateral Ratio 10.3 Mitral E to LV E' Septal Ratio 14.8 TR Peak Velocity 76.5 cm/s TR Peak Gradient 2.3 mmHg TR Mean Velocity 88.5 cm/s TR Mean Gradient 3.6 mmHg TR Velocity Time Integral 29.3 cm Right Atrial Pressure 3.0 mmHg Pulmonary Artery Systolic Pressu 5.3 mmHg PV Peak Velocity 95.0 cm/s RV Acceleration Time 0.1 s RV Ejection Time 0.3 s RV AcT/ET 0.5 FINDINGS Left Ventricle Normal left ventricular size. LV systolic function is normal with EF of 55-60%. No regional wall motion abnormalities. Grade 1 diastolic dysfunction Right Ventricle The right ventricle is normal in size and function. Right Atrium Not well visualized Left Atrium The left atrium is dilated Mitral Valve Grossly normal without significant stenosis or prolapse. There is no mitral regurgitation. Aortic Valve Grossly normal without significant stenosis. There is no aortic regurgitation. Tricuspid Valve Structurally normal tricuspid valve without significant stenosis or regurgitation. Insufficient TR jet to calculate RVSP Pulmonic Valve Not well visualized Pericardium Normal pericardium without effusion. Aorta Normal ascending aorta dimension. CONCLUSIONS Technically difficult study LV systolic function is normal with EF of 55-60% Grade 1 diastolic dysfunction Left atrial enlargement No gross abnormalities seen Santo Rogel MD (Electronically Signed) Final Date: 28 Jun 2020 14:17 S
[2020-06-27 10:03] LABS: Procalcitonin 0.16 ng/mL (0-0.5)
[2020-06-27] MEDS: magnesium sulfate premix 2 GM/50 ML PIGGYBACK IV (10:22)
[2020-06-27] MEDS: silver sulfadiazine cream 1% 50 gm 1 APPLIC TOPICAL ×2 (10:32→17:30)
[2020-06-27] MEDS: levoFLOXacin 500 mg Tablet PO (10:33)
[2020-06-27 11:53] LABS: Glucose Point of Care 356 mg/dL (70-110)
[2020-06-27 12:51] LABS: Iron 56 ug/dL (37-145); Percent Saturation 28.7 % (20-50); Total Iron Binding Capacity 195 mcg/dl; Unsaturated Iron Binding 139 ug/dL (112-347)
[2020-06-27 17:23] LABS: Glucose Point of Care 182 mg/dL (70-110)
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
[2020-06-27 20:52] LABS: Glucose Point of Care 190 mg/dL (70-110)
[2020-06-27] MEDS: morphine 4 mg/mL SDV 1 mL 2 MG IVP (21:05)
[2020-06-28] VITALS (75 sets, daily range): BP systolic 83–131; BP diastolic 43–77; PULSE 65–107; RESP 10–29; TEMP 36.5–37.6; O2SAT 74–100
[2020-06-28 05:34] LABS: Basophils % 0.2 %; Eosinophils # 0.2 10^3/uL (0.0-0.8); Eosinophils % 3.7 %; Hematocrit 27.9 % (37.0-47.0); Hemoglobin 8.8 g/dL (11.5-15.3); Lymphocytes # 1.4 10^3/uL (0.8-4.8); Lymphocytes % 29.8 %; Mean Corpuscular HGB Conc 31.5 g/dL (30.0-36.0); Mean Corpuscular Hemoglobin 33.8 pg (28.0-34.0); Mean Corpuscular Volume 107.3 fL (81-99); Mean Platelet Volume 9.7 fL (7.4-10.4); Monocytes # 0.6 10^3/uL (0.2-0.9); Monocytes % 12.3 %; Neutrophils # 2.49 10^3/uL (1.8-7.7); Neutrophils % 53.8 %; Nucleated Red Blood Cells % 0 %; Platelet Count 115 10^3/cmm (130-400); Red Cell Distribution Width 14.4 % (12.1-15.1); White Blood Count 4.6 10^3/uL (4.0-10.0)
[2020-06-28 06:04] LABS: Alanine Aminotransferase 7 U/L (0-33); Albumin Level 2.4 g/dL (3.5-5.2); Alkaline Phosphatase 169 IU/L (35-105); Aspartate Amino Transferase 11 U/L (0-32); Blood Urea Nitrogen 42 mg/dL (8-23); Calcium 9.4 mg/dL (8.5-10.5); Carbon Dioxide 28 mmol/L (22-29); Chloride 103 mmol/L (98-107); Globulin 3.2 g/dL (1.3-4.6); Glucose 65 mg/dL (65-115); Osmolality Calculated 295 mOsm/kg (285-295); Sodium 138 mmol/L (136-145); Total Bilirubin 0.3 mg/dL (0.15-1.2); Total Protein 5.6 g/dL (6.6-8.7)
[2020-06-28 06:05] LABS: Anion Gap 11.2 (5-19)
[2020-06-28 06:06] LABS: Potassium 4.2 mmol/L (3.5-5.1)
[2020-06-28] MEDS: atorvastatin 40 mg Tablet PO (06:35)
[2020-06-28] MEDS: clopidogrel 75 mg Tablet PO (06:35)
[2020-06-28] MEDS: levoFLOXacin 500 mg Tablet PO (06:35)
[2020-06-28] MEDS: meropenem 1,000 MG in sodium chloride 0.9% (plus) 50 ML 100 MG IV ×3 (07:48→22:52)
[2020-06-28 08:05] LABS: Glucose Point of Care 95 mg/dL (70-110)
--- NOTE | 2020-06-28 09:00 | PC.NURSE ---
Dr Rose called for Levemir administration clarification. Blood Glucose 65 with morning labs. 95 on my shift. Orders to hold Levemir until after his morning rounds. Will reevaluate at that time.
[2020-06-28] MEDS: apixaban 5 mg Tablet PO ×2 (09:22→17:44)
[2020-06-28] MEDS: sucralfate 1 gm Tablet PO ×4 (09:22→21:19)
[2020-06-28] MEDS: metoprolol tartrate 25 mg Tablet PO ×2 (09:22→17:44)
[2020-06-28] MEDS: pantoprazole DR 40 mg Tablet PO ×2 (09:22→17:45)
[2020-06-28] MEDS: silver sulfadiazine cream 1% 50 gm 1 APPLIC TOPICAL ×2 (09:24→17:45)
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
[2020-06-28 11:19] LABS: Cortisol Random 11.34 ug/dL (2.47-19.5)
[2020-06-28 11:48] LABS: Glucose Point of Care 242 mg/dL (70-110)
[2020-06-28] MEDS: insulin glargine 100 units/1 mL 50 UNIT SUBCUT (12:29)
--- NOTE | 2020-06-28 13:35 | PC.NURSE ---
Pt c/o constant pressure in left groin. Dr Rose notified.
[2020-06-28] MEDS: morphine 4 mg/mL SDV 1 mL 2 MG IVP ×2 (14:35→22:51)
--- NOTE | 2020-06-28 14:45 | PC.NURSE ---
Khan inserted per order. 550mls of urine returned. Several small blood clots noted and one large clot. Urine blood upon initial insertion but cleared after first 300mls of urine. Pt tolerated insertion well. Pt states left groin pressure slightly improved.
[2020-06-28 16:56] LABS: Glucose Point of Care 234 mg/dL (70-110)
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
[2020-06-28 21:19] LABS: Glucose Point of Care 227 mg/dL (70-110)
[2020-06-28] MEDS: HYDROcodone-acetaminophen 5-325 mg Tablet 1 TAB PO (21:47)
[2020-06-29] VITALS (18 sets, daily range): BP systolic 82–127; BP diastolic 43–71; PULSE 61–94; RESP 7–27; TEMP 36.3–36.8; O2SAT 93–100
[2020-06-29 05:30] LABS: Basophils % 0.5 %; Eosinophils # 0.1 10^3/uL (0.0-0.8); Eosinophils % 2.7 %; Hematocrit 25.5 % (37.0-47.0); Hemoglobin 8.5 g/dL (11.5-15.3); Lymphocytes # 1.2 10^3/uL (0.8-4.8); Lymphocytes % 29.8 %; Mean Corpuscular HGB Conc 33.3 g/dL (30.0-36.0); Mean Corpuscular Hemoglobin 34.7 pg (28.0-34.0); Mean Corpuscular Volume 104.1 fL (81-99); Mean Platelet Volume 9.4 fL (7.4-10.4); Monocytes # 0.4 10^3/uL (0.2-0.9); Monocytes % 9.5 %; Neutrophils # 2.32 10^3/uL (1.8-7.7); Neutrophils % 56.8 %; Nucleated Red Blood Cells % 0 %; Platelet Count 105 10^3/cmm (130-400); Red Blood Count 2.45 10^6/uL (4.1-5.3); Red Cell Distribution Width 14.2 % (12.1-15.1); White Blood Count 4.1 10^3/uL (4.0-10.0)
[2020-06-29 05:53] LABS: Alanine Aminotransferase 6 U/L (0-33); Albumin Level 2.5 g/dL (3.5-5.2); Alkaline Phosphatase 190 IU/L (35-105); Anion Gap 10.1 (5-19); Aspartate Amino Transferase 13 U/L (0-32); Blood Urea Nitrogen 29 mg/dL (8-23); Calcium 9.5 mg/dL (8.5-10.5); Carbon Dioxide 28 mmol/L (22-29); Chloride 102 mmol/L (98-107); Globulin 2.6 g/dL (1.3-4.6); Glucose 138 mg/dL (65-115); Osmolality Calculated 290 mOsm/kg (285-295); Potassium 4.1 mmol/L (3.5-5.1); Sodium 136 mmol/L (136-145); Total Bilirubin 0.3 mg/dL (0.15-1.2); Total Protein 5.1 g/dL (6.6-8.7)
--- NOTE | 2020-06-29 06:15 | PC.NURSE ---
Plavix held per MD due to questionable vaginal bleeding.
[2020-06-29] MEDS: meropenem 1,000 MG in sodium chloride 0.9% (plus) 50 ML 100 MG IV (06:33)
[2020-06-29] MEDS: atorvastatin 40 mg Tablet PO (06:33)
[2020-06-29] MEDS: levoFLOXacin 500 mg Tablet PO (06:33)
[2020-06-29 07:33] LABS: Glucose Point of Care 138 mg/dL (70-110)
--- NOTE | 2020-06-29 07:49 | USR_ITS ---
NOTE: Report was unsigned for reason: Order was edited. Original Signature date and time was: 06/29/20 @1239 PROCEDURE INFORMATION: Exam: US Nonobstetric Pelvis; Complete Exam date and time: 06/29/2020 9:39 AM Age: 70 years old Clinical indication: Other: Vaginal bleeding TECHNIQUE: Imaging protocol: Transabdominal pelvic nonobstetric ultrasound. Complete exam. Real time ultrasound with image documentation. COMPARISON: CT abdomen pelvis wo con [id number] 06/26/2020 6:41 PM FINDINGS: Uterus/cervix: The uterus measures 7.9 x 4.5 x 5.1 cm. It is normal in size. No discrete uterine masses are seen. The endometrium is heterogeneous and thickened with heterogeneous echotexture extending into the cervix at 2.4 cm. A neoplastic process cannot be excluded given history of vaginal bleeding. Gynecological consultation is advised. Right adnexa: The right ovary is not identified. No masses are seen in the right adnexa. Left adnexa: The left ovary is not identified. No masses are seen in the left adnexa. Intraperitoneal space: There is no free fluid. [facility] US/US transvaginal [id number] IMPRESSION: 1. There is heterogeneous thickening of the endometrium and heterogeneity of the endocervical canal. With history of vaginal bleeding a malignant process cannot be excluded. Gynecological consultation is advised. 2. The ovaries are not seen and probably atrophic. No adnexal masses are detected.
[2020-06-29] MEDS: metoprolol tartrate 25 mg Tablet PO ×2 (08:17→18:03)
[2020-06-29] MEDS: sucralfate 1 gm Tablet PO ×4 (08:17→22:12)
[2020-06-29] MEDS: apixaban 5 mg Tablet PO (08:17)
[2020-06-29] MEDS: pantoprazole DR 40 mg Tablet PO ×2 (08:18→18:03)
[2020-06-29] MEDS: silver sulfadiazine cream 1% 50 gm 1 APPLIC TOPICAL ×2 (08:19→18:06)
[2020-06-29 09:30] LABS: Hematocrit 29.1 % (37.0-47.0); Hemoglobin 9.3 g/dL (11.5-15.3)
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
--- NOTE | 2020-06-29 09:51 | USR_ITS ---
PROCEDURE INFORMATION: Exam: US Duplex Lower Extremity Veins, Bilateral Exam date and time: 06/29/2020 9:54 AM Age: 70 years old Clinical indication: Swelling (edema) of limb; Lower extremity, bilateral; Additional info: Dvt TECHNIQUE: Imaging protocol: Real-time duplex ultrasound of the extremities with 2-D fitzpatrick scale, color Doppler flow and spectral waveform analysis with image documentation. Complete exam focused on the bilateral lower extremity veins. COMPARISON: CR XR knees AP WB w RT lmt ORTH 05/18/2019 11:01 AM FINDINGS: Right deep veins: Unremarkable. The common femoral, femoral, proximal profunda femoral and popliteal veins are patent without thrombus. Normal Doppler waveforms. Normal compressibility and/or augmentation response. Right superficial veins: Saphenofemoral junction is patent without thrombus. Left deep veins: Unremarkable. The common femoral, femoral, proximal profunda femoral and popliteal veins are patent without thrombus. Normal Doppler waveforms. Normal compressibility and/or augmentation response. Left superficial veins: Saphenofemoral junction is patent without thrombus. Soft tissues: There is bilateral subcutaneous edema in the calves.. US/[place] [id number] IMPRESSION: No evidence of deep vein thrombosis.
[2020-06-29] MEDS: HYDROcodone-acetaminophen 5-325 mg Tablet 1 TAB PO ×2 (10:01→14:31)
[2020-06-29 11:33] LABS: Glucose Point of Care 241 mg/dL (70-110)
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
--- NOTE | 2020-06-29 12:01 | PC.SOCIAL ---
IMM Update Pg. 2 of IMM Updated and reviewed with patient, who verbalized understanding. Copy provided.
[2020-06-29] MEDS: iohexol 350 mg/mL 100 mL Btl IV (12:23)
[2020-06-29 13:04] LABS: Glucose Point of Care 248 mg/dL (70-110)
--- NOTE | 2020-06-29 16:14 | PC.NURSE ---
patient's daughter Enedelia called and requested information about patient. ICU had just called and said not to give her info about patient. junior copywriter told her i can't give her info and she can call family. Daughter was upset and hung up. junior copywriter then talked to patient and she said she don't want her daughter to know anything. patient said the only person that can have information is Nestor Barajas (Larry).
[2020-06-29] MEDS: allopurinol 300 mg Tablet PO (18:03)
[2020-06-29 19:10] LABS: Glucose Point of Care 102 mg/dL (70-110)
[2020-06-29 20:33] LABS: Glucose Point of Care 185 mg/dL (70-110)
[2020-06-29 22:21] LABS: Glucose Point of Care 121 mg/dL (70-110)
[2020-06-30] VITALS (20 sets, daily range): BP systolic 100–123; BP diastolic 49–71; PULSE 68–111; RESP 12–18; TEMP 36.4–37.7; O2SAT 91–100
[2020-06-30 04:11] LABS: Glucose Point of Care 118 mg/dL (70-110)
[2020-06-30] MEDS: HYDROcodone-acetaminophen 5-325 mg Tablet 1 TAB PO ×2 (04:46→10:51)
[2020-06-30 06:43] LABS: Glucose Point of Care 120 mg/dL (70-110)
[2020-06-30] MEDS: atorvastatin 40 mg Tablet PO (06:54)
[2020-06-30] MEDS: pantoprazole DR 40 mg Tablet PO (08:16)
[2020-06-30] MEDS: metoprolol tartrate 25 mg Tablet PO (08:16)
[2020-06-30] MEDS: allopurinol 300 mg Tablet PO (08:16)
[2020-06-30] MEDS: sucralfate 1 gm Tablet PO ×3 (08:16→21:51)
[2020-06-30 08:32] LABS: Glucose Point of Care 126 mg/dL (70-110)
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
[2020-06-30 10:36] LABS: Basophils % 0.3 %; Eosinophils # 0.1 10^3/uL (0.0-0.8); Eosinophils % 2.2 %; Hematocrit 28.1 % (37.0-47.0); Hemoglobin 9.1 g/dL (11.5-15.3); Lymphocytes # 1.1 10^3/uL (0.8-4.8); Lymphocytes % 16.7 %; Mean Corpuscular HGB Conc 32.4 g/dL (30.0-36.0); Mean Corpuscular Hemoglobin 34.5 pg (28.0-34.0); Mean Corpuscular Volume 106.4 fL (81-99); Mean Platelet Volume 9.7 fL (7.4-10.4); Monocytes # 0.6 10^3/uL (0.2-0.9); Monocytes % 9.7 %; Neutrophils # 4.49 10^3/uL (1.8-7.7); Neutrophils % 70.2 %; Nucleated Red Blood Cells % 0.3 %; Platelet Count 152 10^3/cmm (130-400); Red Blood Count 2.64 10^6/uL (4.1-5.3); Red Cell Distribution Width 14.9 % (12.1-15.1); White Blood Count 6.4 10^3/uL (4.0-10.0)
[2020-06-30] MEDS: silver sulfadiazine cream 1% 50 gm 1 APPLIC TOPICAL (10:52)
[2020-06-30 11:05] LABS: Alanine Aminotransferase 8 U/L (0-33); Albumin Level 2.7 g/dL (3.5-5.2); Alkaline Phosphatase 203 IU/L (35-105); Anion Gap 12.3 (5-19); Aspartate Amino Transferase 19 U/L (0-32); Blood Urea Nitrogen 24 mg/dL (8-23); Calcium 9.6 mg/dL (8.5-10.5); Carbon Dioxide 27 mmol/L (22-29); Chloride 100 mmol/L (98-107); Globulin 3.2 g/dL (1.3-4.6); Glucose 206 mg/dL (65-115); Osmolality Calculated 290 mOsm/kg (285-295); Potassium 4.3 mmol/L (3.5-5.1); Sodium 135 mmol/L (136-145); Total Bilirubin 0.4 mg/dL (0.15-1.2); Total Protein 5.9 g/dL (6.6-8.7)
[2020-06-30 12:09] LABS: Add Urine Microscopic? YES; Bilirubin Urine Neg (Negative); Blood Urine 2+ (Negative); Glucose Urine UA Norm (Normal); Ketones Urine 1+ (Negative); Leukocyte Esterase Urine Trace (Negative); Nitrate Urine Negative (Negative); Protein Urine 3+ (Negative); Specific Gravity, Urine 1.015 (1.005-1.030); Urine Appearance Clear (CLEAR); Urine Color Yellow (Yellow); Urobilinogen Urine 1 mg/dL (Negative); pH Urine 5 (5-7)
[2020-06-30 12:10] LABS: Bacteria Urine 2+ /hpf; Hyaline Casts Urine 0-4 /lpf; Squamous Epithelial Cell Urine 0-4 /hpf (0-5)
[2020-06-30 12:11] LABS: Add Urine Culture? Yes
[2020-06-30 12:22] LABS: Glucose Point of Care 239 mg/dL (70-110)
--- NOTE | 2020-06-30 16:27 | PC.NURSE ---
Off Unit Pre op nurse, Lani, wheeled patient off of floor on [facility]. LRoberts RN
--- NOTE | 2020-06-30 16:35 | P.ANESASSM_ITS ---
Pre-Anesthetic Assessment Pre-Anesthetic Assessment: Height/Weight: Height 1.75 m Weight 90.718 kg Temp Pulse Resp BP Pulse Ox 100 F H 72 18 113/58 100 06/30/20 16:22 06/30/20 16:26 06/30/20 16:26 06/30/20 16:26 06/30/20 16:26 Preop Diagnosis: hematemsis Proposed Procedure: Operation Date: 06/30/20 17:10 Proposed Procedures p Dilation And Curettage (D&C)(Not Applicable) - Robbie Cueva MD Familial anesthetic complications: None Was Beta Caroline taken within 24 hours: Yes Was Clonidine taken within 24 hours: N/A Last intake: > 8 hrs Social: Social History: No alcohol and No tobacco Comment: quit smoking 25 years ago Exam: Pre-Anes Outpt Exam: alert, oriented x 3, clear to auscultation bilaterally and regular rate & rhythm Airway: Cervical ROM: WNL MP: 2 Dentition: False and Other (bridge) Pulmonary: Pulmonary: COPD CV/HEM: CV/HEM: Anemia, CAD (LAD stent in 2016), CHF (grade I diastolic heart failure), DVT (w/ PE in 2019) and HTN Comments: NSTEMI Echo 06/27 - EF 60% : : Chronic renal Insufficiency Hepatic: Comments: WOLFE GI: Comments: recent GI bleed, duodenal ulcer Metabolic: Metabolic: DM and Hyperlipidemia Anesthetic Plan: ASA status: 4 Anesthesia: MAC Risk of > 500 ml blood loss (7ml/kg in children): No Meds/Allergies Current Medications: Current Medications Generic Name Dose Route Start Last Admin Trade Name Freq PRN Reason Stop Dose Admin Hydrocodone Bitart /Acetaminophen 1 tab 06/26/20 21:40 06/30/20 10:51 Hydrocodone-Acet aminophen 5-325 Mg Tablet PO 1 tab Q4H PRN Administration MODERATE TO SEVER E PAIN Allopurinol 300 mg 06/29/20 18:00 06/30/20 08:16 Allopurinol 300 Mg Tablet PO 300 mg BID GIANNI Administration Atorvastatin Calci um 40 mg 06/27/20 06:00 06/30/20 06:54 Atorvastatin 40 Mg Tablet PO 40 mg QAM GIANNI Administration Clopidogrel Bisulf ate 75 mg 06/27/20 06:00 06/29/20 06:15 Clopidogrel 75 M g Tablet PO Not Given QAM GIANNI Furosemide 80 mg 06/27/20 06:00 06/27/20 06:04 Furosemide 40 Mg Tablet PO 80 mg QAM GIANNI Administration Insulin Aspart 0 unit 06/27/20 08:00 06/30/20 12:27 Insulin Aspart 1 00 Unit/1 Ml SUBCUT 8 unit WM&BEDTIME GIANNI Administration Protocol Metoprolol Tartrat e 25 mg 06/27/20 09:00 06/30/20 08:16 Metoprolol Tartr ate 25 Mg Tablet PO 25 mg BID GIANNI Administration Pantoprazole Sodiu m 40 mg 06/27/20 09:00 06/30/20 08:[address] 40 Mg Tablet PO 40 mg BID GIANNI Administration Silver Sulfadiazin e 1 applic 06/27/20 10:00 06/30/20 10:52 Silver Sulfadiaz ine Cream 1% 50 Gm TOPICAL 1 applic BID GIANNI Administration Sucralfate 1 gm 06/27/20 09:00 06/30/20 12:27 Sucralfate 1 Gm Tablet PO 1 gm QID GIANNI Administration PFSH Anesthesia PFSH: Medical History (Updated 06/30/20 @ 15:37 by Henrique Nobles MD) Anxiety ASHD (arteriosclerotic heart disease) Back pain Cellulitis of right lower extremity CHF (congestive heart failure) CKD (chronic kidney disease) Coronary artery disease DDD (degenerative disc disease) Decreased hearing of both ears Depression Diabetes Diabetic polyneuropathy Duodenal ulcer Dyslipidemia Edema History of GI bleed Hypertension Incarcerated incisional hernia Joint pain Left hamstring muscle strain Morbid obesity Morbilliform rash Onychomycosis PUD (peptic ulcer disease) Recurrent UTI Renal calculus Right leg pain Urinary tract infection Vitamin B deficiency Vitamin D deficiency Wound of right lower extremity Surgical History H/O esophagogastroduodenoscopy (~06/05/19) H/O hernia repair History of coronary artery stent placement Cardiac cath on 12/13/2016 with stent placement to LAD Hx of section 3 Hx of cholecystectomy Hx of tonsillectomy S/P appendectomy S/P plastic surgery 2019, panniculectomy Family History Mother CAD (coronary artery disease) Other Hypertension Social History Smoking and tobacco status: former smoker Quit status (tobacco): has quit using tobacco Former quit date comment: 2.5 PPD x 40 yrs Alcohol intake: unknown Lives independently: Yes Household members: spouse Housing: House Marital status: Pets and animals: Yes History of recent travel: No Current gender identity: Female Female Reproductive History: Date of last menstrual period: 06/05/19 Data Anesthesia CBC & Chem 7: 06/30/20 10:21 06/30/20 10:21 Other Labs: Laboratory Results - last 48 hr 06/28/20 06/28/20 06/29/20 16:53 21:16 05:15 WBC 4.1 RBC 2.45 L Hgb 8.5 L Hct 25.5 L MCV 104.1 H MCH 34.7 H MCHC 33.3 RDW 14.2 Plt Count 105 L MPV 9.4 Neut % (Auto) 56.8 Lymph % (Auto) 29.8 [place] % (Auto) 9.5 Eos % (Auto) 2.7 Baso % (Auto) 0.5 Neut # (Auto) 2.32 Lymph # (Auto) 1.2 [place] # (Auto) 0.4 Eos # (Auto) 0.1 Baso # (Auto) 0.0 Nucleated RBC % (auto) 0 Nucleated RBCs # 0.0 Sodium Potassium Chloride Carbon Dioxide Anion Gap BUN Creatinine GFR Calculation Glucose POC Glucose 234 H 227 H Calculated Osmolality Calcium Total Bilirubin AST ALT Alkaline Phosphatase Total Protein Albumin Globulin Urine Color Urine Appearance Urine pH Ur Specific [place] Urine Protein Urine Glucose (UA) Urine Ketones Urine Blood Urine Nitrate Urine Bilirubin Urine Urobilinogen Ur Leukocyte Esterase Urine RBC Urine WBC Ur Squamous Epith Cells Amorphous Sediment Urine Bacteria Hyaline Casts Blood Type Rho(D) Type Antibody Screen 06/29/20 06/29/20 06/29/20 05:15 07:28 09:20 WBC RBC Hgb 9.3 L Hct 29.1 L MCV MCH MCHC RDW Plt Count MPV Neut % (Auto) Lymph % (Auto) [place] % (Auto) Eos % (Auto) Baso % (Auto) Neut # (Auto) Lymph # (Auto) [place] # (Auto) Eos # (Auto) Baso # (Auto) Nucleated RBC % (auto) Nucleated RBCs # Sodium 136 Potassium 4.1 Chloride 102 Carbon Dioxide 28 Anion Gap 10.1 BUN 29 H Creatinine 0.7 GFR Calculation Not Reportable Glucose 138 H POC Glucose 138 H Calculated Osmolality 290 Calcium 9.5 Total Bilirubin 0.3 AST 13 ALT 6 Alkaline Phosphatase 190 H Total Protein 5.1 L Albumin 2.5 L Globulin 2.6 Urine Color Urine Appearance Urine pH Ur Specific [place] Urine Protein Urine Glucose (UA) Urine Ketones Urine Blood Urine Nitrate Urine Bilirubin Urine Urobilinogen Ur Leukocyte Esterase Urine RBC Urine WBC Ur Squamous Epith Cells Amorphous Sediment Urine Bacteria Hyaline Casts Blood Type Rho(D) Type Antibody Screen 06/29/20 06/29/20 06/29/20 11:29 13:00 17:58 WBC RBC Hgb Hct MCV MCH MCHC RDW Plt Count MPV Neut % (Auto) Lymph % (Auto) [place] % (Auto) Eos % (Auto) Baso % (Auto) Neut # (Auto) Lymph # (Auto) [place] # (Auto) Eos # (Auto) Baso # (Auto) Nucleated RBC % (auto) Nucleated RBCs # Sodium Potassium Chloride Carbon Dioxide Anion Gap BUN Creatinine GFR Calculation Glucose POC Glucose 241 H 248 H 102 Calculated Osmolality Calcium Total Bilirubin AST ALT Alkaline Phosphatase Total Protein Albumin Globulin Urine Color Urine Appearance Urine pH Ur Specific [place] Urine Protein Urine Glucose (UA) Urine Ketones Urine Blood Urine Nitrate Urine Bilirubin Urine Urobilinogen Ur Leukocyte Esterase Urine RBC Urine WBC Ur Squamous Epith Cells Amorphous Sediment Urine Bacteria Hyaline Casts Blood Type Rho(D) Type Antibody Screen 06/29/20 06/29/20 06/30/20 19:46 22:17 04:08 WBC RBC Hgb Hct MCV MCH MCHC RDW Plt Count MPV Neut % (Auto) Lymph % (Auto) [place] % (Auto) Eos % (Auto) Baso % (Auto) Neut # (Auto) Lymph # (Auto) [place] # (Auto) Eos # (Auto) Baso # (Auto) Nucleated RBC % (auto) Nucleated RBCs # Sodium Potassium Chloride Carbon Dioxide Anion Gap BUN Creatinine GFR Calculation Glucose POC Glucose 185 H 121 H 118 H Calculated Osmolality Calcium Total Bilirubin AST ALT Alkaline Phosphatase Total Protein Albumin Globulin Urine Color Urine Appearance Urine pH Ur Specific [place] Urine Protein Urine Glucose (UA) Urine Ketones Urine Blood Urine Nitrate Urine Bilirubin Urine Urobilinogen Ur Leukocyte Esterase Urine RBC Urine WBC Ur Squamous Epith Cells Amorphous Sediment Urine Bacteria Hyaline Casts Blood Type Rho(D) Type Antibody Screen 06/30/20 06/30/20 06/30/20 06:13 08:14 10:21 WBC 6.4 RBC 2.64 L Hgb 9.1 L Hct 28.1 L MCV 106.4 H MCH 34.5 H MCHC 32.4 RDW 14.9 Plt Count 152 MPV 9.7 Neut % (Auto) 70.2 Lymph % (Auto) 16.7 [place] % (Auto) 9.7 Eos % (Auto) 2.2 Baso % (Auto) 0.3 Neut # (Auto) 4.49 Lymph # (Auto) 1.1 [place] # (Auto) 0.6 Eos # (Auto) 0.1 Baso # (Auto) 0.0 Nucleated RBC % (auto) 0.3 Nucleated RBCs # 0.0 Sodium Potassium Chloride Carbon Dioxide Anion Gap BUN Creatinine GFR Calculation Glucose POC Glucose 120 H 126 H Calculated Osmolality Calcium Total Bilirubin AST ALT Alkaline Phosphatase Total Protein Albumin Globulin Urine Color Urine Appearance Urine pH Ur Specific [place] Urine Protein Urine Glucose (UA) Urine Ketones Urine Blood Urine Nitrate Urine Bilirubin Urine Urobilinogen Ur Leukocyte Esterase Urine RBC Urine WBC Ur Squamous Epith Cells Amorphous Sediment Urine Bacteria Hyaline Casts Blood Type Rho(D) Type Antibody Screen 06/30/20 06/30/20 06/30/20 10:21 10:21 11:45 WBC RBC Hgb Hct MCV MCH MCHC RDW Plt Count MPV Neut % (Auto) Lymph % (Auto) [place] % (Auto) Eos % (Auto) Baso % (Auto) Neut # (Auto) Lymph # (Auto) [place] # (Auto) Eos # (Auto) Baso # (Auto) Nucleated RBC % (auto) Nucleated RBCs # Sodium 135 L Potassium 4.3 Chloride 100 Carbon Dioxide 27 Anion Gap 12.3 BUN 24 H Creatinine 0.7 GFR Calculation Not Reportable Glucose 206 H POC Glucose Calculated Osmolality 290 Calcium 9.6 Total Bilirubin 0.4 AST 19 ALT 8 Alkaline Phosphatase 203 H Total Protein 5.9 L Albumin 2.7 L Globulin 3.2 Urine Color Yellow Urine Appearance Clear Urine pH 5 Ur Specific [place] 1.015 Urine Protein 3+ H Urine Glucose (UA) Norm Urine Ketones 1+ H Urine Blood 2+ H Urine Nitrate Negative Urine Bilirubin Neg Urine Urobilinogen 1 H Ur Leukocyte Esterase Trace H Urine RBC 10-15 H Urine WBC 5-10 H Ur Squamous Epith Cells 0-4 H Amorphous Sediment Not Reportable Urine Bacteria 2+ H Hyaline Casts 0-4 H Blood Type A Negative Rho(D) Type Negative / 0 Antibody Screen Negative 06/30/20 12:18 WBC RBC Hgb Hct MCV MCH MCHC RDW Plt Count MPV Neut % (Auto) Lymph % (Auto) [place] % (Auto) Eos % (Auto) Baso % (Auto) Neut # (Auto) Lymph # (Auto) [place] # (Auto) Eos # (Auto) Baso # (Auto) Nucleated RBC % (auto) Nucleated RBCs # Sodium Potassium Chloride Carbon Dioxide Anion Gap BUN Creatinine GFR Calculation Glucose POC Glucose 239 H Calculated Osmolality Calcium Total Bilirubin AST ALT Alkaline Phosphatase Total Protein Albumin Globulin Urine Color Urine Appearance Urine pH Ur Specific [place] Urine Protein Urine Glucose (UA) Urine Ketones Urine Blood Urine Nitrate Urine Bilirubin Urine Urobilinogen Ur Leukocyte Esterase Urine RBC Urine WBC Ur Squamous Epith Cells Amorphous Sediment Urine Bacteria Hyaline Casts Blood Type Rho(D) Type Antibody Screen Cardiac Studies: No Data to Display
[2020-06-30] MEDS: sodium chloride 0.9% 1,000 ML 30 ML IV (17:39)
--- NOTE | 2020-06-30 17:48 | P.OP_ITS ---
Operative Report Date of procedure: June 30, 2020 Pre-op Diagnosis: Postmenopausal bleeding Post-op diagnosis: same Post-op Findings: Uterine bleeding Procedure Done: Dilation and curettage Specimens removed/disposition: Endometrial curettings Surgeon: Robbie Cueva MD Anesthesia: General Estimated blood loss (mL): 10 IV fluids (mL): 200 Urine output (mL): 50 Condition: stable Disposition: PACU Brief History: Mrs. Sanchez 70-year-old female G3, P3 with postmenopausal bleeding Procedure: After informed consent, the patient was taken to the Operating Room where general anesthesia was administered. The patient was examined under anesthesia and found to have a normal uterus with normal adnexa. She was placed in the dorsal lithotomy position and prepped and draped in sterile fashion. A sterile weighted speculum was placed in the patient?s vagina. A single-tooth tenaculum was then applied to the cervix. Xylocaine 1% was used for cervical block. the uterus was then gently sounded to 10 cm and a curette was advanced gently to the uterine fundus and endometrial lining with blood clots were emptied. A sharp curettage was then performed until a gritty texture was noted. There was minimal bleeding noted and the tenaculum was removed with good h emostasis noted. The patient tolerated the procedure well. The patient was taken to the recovery area in stable condition.
--- NOTE | 2020-06-30 18:10 | ANE.PACU2 ---
Inpatient post-anesthesia follow up: Airway intact: Yes Vital signs: Temperature 97.8 F Pulse Rate [Left R adial] 89 Pulse Rate 84 Respiratory Rate 18 Blood Pressure [Le ft Arm] 112/67 Blood Pressure 112/51 Pulse Oximetry 98 Oxygen Delivery Me thod Room Air Oxygen Flow Rate Fraction of Inspir ed Oxygen Hydration adequate: Yes Nausea and vomiting: No Pain level: 3 Mental status: Baseline
[2020-06-30] MEDS: ketorolac 30 mg/mL INJ IVP (18:44)
[2020-06-30] MEDS: docusate sodium 100 mg Capsule PO (18:44)
[2020-06-30] MEDS: dextrose 5%-lactated ringers 1,000 ML 125 ML IV (18:44)
[2020-06-30 20:24] LABS: Glucose Point of Care 63 mg/dL (70-110)
[2020-06-30 20:24] LABS: Glucose Point of Care 89 mg/dL (70-110)
[2020-06-30] MEDS: HYDROcodone-acetaminophen 5-325 mg Tablet PO (22:30)
[2020-07-01] MEDS: ketorolac 30 mg/mL INJ IVP ×3 (00:45→13:20)
[2020-07-01] MEDS: dextrose 5%-lactated ringers 1,000 ML 125 ML IV ×2 (02:55→11:24)
[2020-07-01] MEDS: FUROsemide 40 mg Tablet 80 MG PO (05:25)
[2020-07-01] MEDS: atorvastatin 40 mg Tablet PO (05:25)
[2020-07-01] MEDS: clopidogrel 75 mg Tablet PO (05:25)
[2020-07-01 06:00] VITALS: PULSE 103
[2020-07-01 06:02] LABS: Hematocrit 25.4 % (37.0-47.0); Hemoglobin 8.1 g/dL (11.5-15.3); Mean Corpuscular HGB Conc 31.9 g/dL (30.0-36.0); Mean Corpuscular Hemoglobin 33.3 pg (28.0-34.0); Mean Corpuscular Volume 104.5 fL (81-99); Mean Platelet Volume 9.4 fL (7.4-10.4); Platelet Count 103 10^3/cmm (130-400); Red Blood Count 2.43 10^6/uL (4.1-5.3); Red Cell Distribution Width 14.7 % (12.1-15.1); White Blood Count 3.7 10^3/uL (4.0-10.0)
[2020-07-01 06:39] LABS: Glucose Point of Care 352 mg/dL (70-110)
[2020-07-01 07:41] VITALS: BP 108/62; PULSE 87; RESP 18; TEMP 36.6; O2SAT 97
[2020-07-01 08:20] VITALS: PULSE 80; RESP 18; O2SAT 97
[2020-07-01] MEDS: simethicone 80 mg Chew PO (08:33)
[2020-07-01] MEDS: sucralfate 1 gm Tablet PO ×2 (08:33→13:20)
[2020-07-01] MEDS: pantoprazole DR 40 mg Tablet PO (08:34)
[2020-07-01] MEDS: metoprolol tartrate 25 mg Tablet PO (08:34)
[2020-07-01] MEDS: allopurinol 300 mg Tablet PO (08:34)
[2020-07-01] MEDS: docusate sodium 100 mg Capsule PO (08:34)
--- NOTE | 2020-07-01 11:18 | PC.SOCIAL ---
*IMM UPDATED* Gave patient IMM updated. Provided her copy of pg 2. Verbalized understanding 07/01/20 @ 0905 Initialed, dated, timed and placed in chart.
[2020-07-01 11:26] VITALS: BP 102/61; PULSE 82; RESP 18; TEMP 36.6; O2SAT 96
--- NOTE | 2020-07-01 11:30 | PC.NURSE ---
Khan Catheter removed at this time. Patient tolerated well.
[2020-07-01] MEDS: silver sulfadiazine cream 1% 50 gm 1 APPLIC TOPICAL (11:42)
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
[2020-07-01 13:19] LABS: Glucose Point of Care 224 mg/dL (70-110)
[2020-07-01 14:00] VITALS: PULSE 0
[2020-07-01 15:35] VITALS: BP 102/61; PULSE 82; RESP 18; TEMP 36.6; O2SAT 96
--- NOTE | 2020-07-01 15:36 | SUR.OPER ---
Patient's IV removed at this time. Reviewed patient discharge with patient at this time. Patient verbalized understanding of discharge instructions including the need to pick her prescriptions up at the [facility] pharmacy. Patient is A&Ox3. Respirations even and non-labored on room air. Patient wheel chaired to her ride. All patient's belonging sent with her.
== END 2020-07-01 15:15 | disposition home or self-care (01) | DRG 988 ==
LOC: ER 17:17 → ICU 20:55 → MEDSURG 06-29 12:15
PROVIDERS: Obstetrics & Gynecology; Student in an Organized Health Care Education/Training Program; Admitting Provider Internal Medicine; Emergency Provider Family Medicine; PCP Family Medicine; Visit Provider Internal Medicine
PROC: 0UDB7ZX Extraction of Endometrium, Via Natural or Artificial Opening, Diagnostic (ICD-10-PCS; CPT 58120; principal; 2020-06-30 17:00)
DX: K52.9 Noninfective gastroenteritis and colitis, unspecified (principal); I13.0 Hypertensive heart and chronic kidney disease with heart failure and stage 1 through stage 4 chronic kidney disease, or unspecified chronic kidney disease; L03.116 Cellulitis of left lower limb; N39.0 Urinary tract infection, site not specified; T76.11XA Adult physical abuse, suspected, initial encounter; E11.22 Type 2 diabetes mellitus with diabetic chronic kidney disease; N18.9 Chronic kidney disease, unspecified; I50.9 Heart failure, unspecified; Z87.11 Personal history of peptic ulcer disease; Z86.718 Personal history of other venous thrombosis and embolism; M79.605 Pain in left leg; M79.604 Pain in right leg; G89.29 Other chronic pain; M54.9 Dorsalgia, unspecified; I25.10 Atherosclerotic heart disease of native coronary artery without angina pectoris; E11.65 Type 2 diabetes mellitus with hyperglycemia; E11.42 Type 2 diabetes mellitus with diabetic polyneuropathy; E78.5 Hyperlipidemia, unspecified; E66.01 Morbid (severe) obesity due to excess calories; Z68.29 Body mass index [BMI] 29.0-29.9, adult; Z87.440 Personal history of urinary (tract) infections; E53.9 Vitamin B deficiency, unspecified; E55.9 Vitamin D deficiency, unspecified; Z87.891 Personal history of nicotine dependence; I87.2 Venous insufficiency (chronic) (peripheral); Z79.891 Long term (current) use of opiate analgesic; Z79.4 Long term (current) use of insulin; Z79.51 Long term (current) use of inhaled steroids; N95.0 Postmenopausal bleeding; R31.9 Hematuria, unspecified; B96.20 Unspecified Escherichia coli [E. coli] as the cause of diseases classified elsewhere; F03.90 Unspecified dementia, unspecified severity, without behavioral disturbance, psychotic disturbance, mood disturbance, and anxiety; D50.9 Iron deficiency anemia, unspecified; T25.222A Burn of second degree of left foot, initial encounter; X11.8XXA Contact with other hot tap-water, initial encounter; M25.512 Pain in left shoulder; F41.8 Other specified anxiety disorders; Z86.711 Personal history of pulmonary embolism; E86.0 Dehydration
CPT/HCPCS: 36415; 36416; 51702; 71275; 73030; 73620; 74176; 76830; 76856; 80048; 80053; 80306; 80307; 81001; 82274; 82533; 82962; 83036; 83540; 83550; 83630; 83690; 83735; 83880; 84100; 84145; 84443; 84484; 85014; 85018; 85025; 85027; 86403; 86850; 86900; 87040; 87077; 87086; 87186; 87493; 87506; 87641; 88305; 93005; 93306; 93970; 96365; 96366; 96372; 96375; 97110; 97116; 97161; 97165; 97530; 97535; 99285; J0330; J0743; J1815 ×2; J1885; J2185; J2270; J2370; J2704; J3010; J3475; J7030; Q9967

== ENCOUNTER → 2020-07-03 14:48 | Outpatient (BNVA) | payer MEDICARE, MEDICAID, SELFPAY | PROVIDERS: PCP Family Medicine; Visit Provider Orthopaedic Surgery | DX: S49.91XA Unspecified injury of right shoulder and upper arm, initial encounter (principal); X58.XXXA Exposure to other specified factors, initial encounter | CPT/HCPCS: 73030 ==

== ENCOUNTER → 2020-08-19 14:23 | Outpatient (BNVA) | payer MEDICARE, MEDICAID, SELFPAY | PROVIDERS: PCP Family Medicine; Visit Provider Orthopaedic Surgery | DX: S42.209A Unspecified fracture of upper end of unspecified humerus, initial encounter for closed fracture (principal); S42.201A Unspecified fracture of upper end of right humerus, initial encounter for closed fracture; S42.202A Unspecified fracture of upper end of left humerus, initial encounter for closed fracture; X58.XXXA Exposure to other specified factors, initial encounter | CPT/HCPCS: 73030 ==

== ENCOUNTER 2020-09-16 15:23 | Emergency (ER) | payer MEDICARE, MEDICAID, SELFPAY ==
[2020-09-16 15:26] VITALS: RESP 18; TEMP 36.8; BMI 36.9
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
[2020-09-16 15:51] VITALS: BP 105/56; PULSE 97; RESP 31; TEMP 38.2; O2SAT 94
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
--- NOTE | 2020-09-16 15:59 | ECG_ITS ---
[facility] ED Test Date: 2020-09-16 Pat Name: Yesika Sanchez Department: Room: Gender: Female Ccu Nurse: : 1950 Requested By: Anthony Mccabe Order Number: [id number] Mariaa MD: Chelsea Brewer M.D. Measurements Intervals [place] Rate: 87 P: 50 NM: 185 QRS: -35 QRSD: 111 T: 43 QT: 375 QTc: 453 Interpretive Statements SINUS RHYTHM MARKED LEFT AXIS DEVIATION [QRS AXIS < -30] RIGHT BUNDLE BRANCH BLOCK [120+ ms QRS DURATION, UPRIGHT V1, 40+ ms S IN I/aVL/V4/V5/V6] Compared to ECG 06/26/2020 18:56:22 Left-axis deviation now present Right bundle-branch block now present Sinus tachycardia no longer present T-wave abnormality no longer present Electronically Signed On 09-18-2020 7:43:01 CDT by Chelsea Brewer M.D. [id number]
[2020-09-16 16:00] LABS: Add Urine Microscopic? NO; Charge for UA Resulting for Rev
[2020-09-16 16:14] LABS: Basophils % 0.4 %; Eosinophils # 0.2 10^3/uL (0.0-0.8); Eosinophils % 4.4 %; Hematocrit 29.7 % (37.0-47.0); Hemoglobin 9.6 g/dL (11.5-15.3); Lymphocytes % 18.4 %; Mean Corpuscular HGB Conc 32.3 g/dL (30.0-36.0); Mean Platelet Volume 10.5 fL (7.4-10.4); Monocytes # 0.5 10^3/uL (0.2-0.9); Monocytes % 10.3 %; Neutrophils # 3.48 10^3/uL (1.8-7.7); Neutrophils % 66.1 %; Nucleated Red Blood Cells % 0 %; Platelet Count 80 10^3/cmm (130-400); Red Cell Distribution Width 14.6 % (12.1-15.1); White Blood Count 5.3 10^3/uL (4.0-10.0)
[2020-09-16 16:17] LABS: Bilirubin Urine Neg (Negative); Blood Urine Neg (Negative); Glucose Urine UA 4+ (Normal); Ketones Urine Negative (Negative); Leukocyte Esterase Urine Negative (Negative); Nitrate Urine Negative (Negative); Protein Urine Neg (Negative); Urine Appearance Clear (CLEAR); Urine Color Yellow (Yellow); Urobilinogen Urine Norm (Negative); pH Urine 5 (5-7)
[2020-09-16] MEDS: sodium chloride 0.9% 1,000 ML 999 ML IV (16:37)
[2020-09-16] MEDS: ondansetron 2 mg/ML SDV 2 mL 4 MG IVP (16:38)
--- NOTE | 2020-09-16 16:39 | PC.NURSE ---
Patient was awake and talking to family upon this RNs arrival to the patients room. Physician notified and reported to hold Narcan.
[2020-09-16 16:44] LABS: Alanine Aminotransferase 13 U/L (0-33); Albumin Level 3.3 g/dL (3.5-5.2); Alkaline Phosphatase 317 IU/L (35-105); Aspartate Amino Transferase 16 U/L (0-32); Blood Urea Nitrogen 29 mg/dL (8-23); Calcium 9.2 mg/dL (8.5-10.5); Carbon Dioxide 27 mmol/L (22-29); Chloride 96 mmol/L (98-107); Globulin 2.9 g/dL (1.3-4.6); Glucose 317 mg/dL (65-115); Osmolality Calculated 290 mOsm/kg (285-295); Sodium 131 mmol/L (136-145); Total Bilirubin 0.6 mg/dL (0.15-1.2); Total Protein 6.2 g/dL (6.6-8.7)
[2020-09-16 16:56] LABS: Troponin(5th) Baseline 31 ng/L (0-10)
[2020-09-16 17:38] VITALS: BP 140/90; PULSE 69; RESP 16; TEMP 36.9; O2SAT 96
--- NOTE | 2020-09-16 17:59 | ECG_ITS ---
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 Measurements Intervals [place] Rate: 84 P: 97 VA: 189 QRS: -36 QRSD: 119 T: 35 QT: 393 QTc: 467 Interpretive Statements SINUS RHYTHM WITH OCCASIONAL SUPRAVENTRICULAR PREMATURE COMPLEXES MARKED LEFT AXIS DEVIATION [QRS AXIS < -30] INCOMPLETE RIGHT BUNDLE BRANCH BLOCK [90+ ms QRS DURATION, TERMINAL R IN V1/V2, 40+ ms S IN I/aVL/V4/V5/V6] SEPTAL MYOCARDIAL INFARCTION [40+ ms Q WAVE IN V1/V2], OF INDETERMINATE AGE POSSIBLE LATERAL MYOCARDIAL INFARCTION [30 ms Q WAVE IN I/aVL/V5/V6], OF INDETERMINATE AGE Compared to ECG 09/16/2020 16:54:28 Incomplete right bundle-branch block now present Right bundle-branch block no longer present Myocardial infarct finding still present Electronically Signed On 09-18-2020 10:03:10 CDT by Chelsea Brewer M.D. [email or web address] [facility]mer[email or web address].[email or web address]/store/[id number]
[2020-09-16 18:08] LABS: ABG PCO2 42.7 mmHg (35-45); ABG PH Result 7.44 (7.35-7.45); Alveolar-Arterial Oxygen Gradi 2.5 mmHg (5-10); Arterial Blood Gas Hematocrit 45.1 % (37-47); Base Excess ABG 4.2 mmol/L (-2.0-2.0); Blood Gas Allen Test Pos; Blood Gas Operator Identificat glc; Blood Gas Sample Site Radial, left; Blood Gas Sample Type Arterial; Carboxyhemoglobin 0.9 %THgb (0.4-20.1); HGB O2 Sat 94.8 % (95-100); Ionized Calcium Level - ABG 1.3 mmol/L (1.1-1.4); Methemoglobin 0.3 % (0.4-1.5); Oxygen Device ROOM AIR; PO2 ABG 77.6 mmHg (80.0-100.0); Potassium Level - ABG 3.8 mmol/L (3.5-5.0); Total Hemoglobin 14.7 g/dL (12-16)
[2020-09-16 18:28] VITALS: BP 109/48; PULSE 83; RESP 16; O2SAT 96
[2020-09-16 18:38] LABS: Troponin 5 2HR 29.58 ng/L (0-10)
[2020-09-16 18:40] LABS: Troponin 5 2HR Delta -1.42 ABS# (0-10)
[2020-09-16 18:51] VITALS: BP 109/48; PULSE 84; RESP 24; O2SAT 97
== END 2020-09-16 18:51 | disposition home or self-care (01) ==
PROVIDERS: Emergency Provider Family Medicine; PCP Family Medicine
DX: R41.82 Altered mental status, unspecified (principal); T50.905A Adverse effect of unspecified drugs, medicaments and biological substances, initial encounter; M25.511 Pain in right shoulder; G89.29 Other chronic pain; I13.0 Hypertensive heart and chronic kidney disease with heart failure and stage 1 through stage 4 chronic kidney disease, or unspecified chronic kidney disease; N18.9 Chronic kidney disease, unspecified; I50.9 Heart failure, unspecified; E11.22 Type 2 diabetes mellitus with diabetic chronic kidney disease; I25.10 Atherosclerotic heart disease of native coronary artery without angina pectoris; E11.42 Type 2 diabetes mellitus with diabetic polyneuropathy; E78.5 Hyperlipidemia, unspecified; E66.01 Morbid (severe) obesity due to excess calories; Z68.36 Body mass index [BMI] 36.0-36.9, adult; Z87.891 Personal history of nicotine dependence; Z79.4 Long term (current) use of insulin
CPT/HCPCS: 36600; 51702; 71045; 80051; 80053; 81003; 82330; 82805; 84484; 85025; 93005; 96361; 96374; 99284; J2405; J7030

== ENCOUNTER 2020-10-16 11:29 | Outpatient (RCR) | payer MEDICARE, MEDICAID, SELFPAY | END 2020-11-06 23:59 | disposition home or self-care (01) | LOC: SPT 11:29 | PROVIDERS: PCP Family Medicine; Referring Provider Orthopaedic Surgery; Visit Provider Orthopaedic Surgery | DX: S42.201D Unspecified fracture of upper end of right humerus, subsequent encounter for fracture with routine healing (principal); X58.XXXD Exposure to other specified factors, subsequent encounter | CPT/HCPCS: 97110; 97162 ==

== ENCOUNTER → 2020-10-21 08:45 | Outpatient (BNVA) | payer MEDICARE, MEDICAID, SELFPAY | PROVIDERS: PCP Family Medicine; Visit Provider Orthopaedic Surgery | DX: S42.91XA Fracture of right shoulder girdle, part unspecified, initial encounter for closed fracture (principal); X58.XXXA Exposure to other specified factors, initial encounter | CPT/HCPCS: 73030 ==

== ENCOUNTER 2021-01-07 14:31 | Outpatient (CLI) | payer MEDICARE, MEDICAID, SELFPAY ==
--- NOTE | 2021-01-07 14:44 | MR_ITS ---
WS: [id number] MRI RIGHT SHOULDER NONCONTRAST TECHNIQUE: Sagittal T2, coronal T1, T2 and proton density imaging. Axial gradient PDE imaging. CLINICAL INFORMATION: M25.511 - Pain in right shoulder COMPARISON: October 21, 2020 radiograph FINDINGS: Some images degraded by motion. Again seen is the fracture involving the right humeral head and humeral neck with residual visualized fracture lines. This appears incompletely healed. Residual edema along the fracture site and fractur e lines. Relatively normal alignment. Slight impaction. Proximal humeral shaft is otherwise normal vi sualized. Moderate degenerative arthritis AC joint with edema and fluid. Small amount subacromial/subdeltoid fl uid. Subacromial space is preserved. High-grade tear involving the distal supraspinatus just proximal to the insertion with fluid signal abnormality anteriorly. Tendinopathy distal supraspinatus. Chroni c thinning of the distal supraspinatus. Normal infraspinatus. Normal teres minor. Partial intrasubstance tear involving the distal subscapula ris tendon. Chronic thinning of the subscapularis. Biceps tendon is not visualized in the bicipital g roove. Degenerative fraying of the glenoid labrum. Normal bone marrow signal in the glenoid. Mild soft tissu e edema about the shoulder. MR/MR shoulder RT wo con* [id number] IMPRESSION: 1. Incomplete healing of the right humeral head and neck fracture with persist ent fracture lines edema. No significant displacement. 2. Small amount of fluid in the AC joint with subacromial/subdeltoid fluid. 3. High-grade intrasubstance tear involving the distal supraspinatus just prox imal to the insertion anteriorly with tendinopathy. 4. Partial thickness tear involving the subscapularis with chronic thinning. T his is likely chronic. Biceps tendon is absent from the bicipital groove and no t well visualized. 5. Mild soft tissue edema about the right shoulder.
== END 2021-01-07 14:32 | disposition home or self-care (01) ==
LOC: RADSHAW 14:39
PROVIDERS: PCP Family Medicine; Visit Provider Specialist
DX: R60.0 Localized edema (principal); S46.811A Strain of other muscles, fascia and tendons at shoulder and upper arm level, right arm, initial encounter; X58.XXXA Exposure to other specified factors, initial encounter; M75.101 Unspecified rotator cuff tear or rupture of right shoulder, not specified as traumatic
CPT/HCPCS: 73221

== ENCOUNTER 2021-02-22 15:41 | Emergency (ER) | payer MEDICARE, MEDICAID, SELFPAY ==
[2021-02-22 15:43] VITALS: BP 128/72; PULSE 99; RESP 16; O2SAT 96
--- NOTE | 2021-02-22 16:09 | ED_ITS ---
HPI - Back Pain/Injury General: Chief Complaint: Back Pain/Injury Stated Complaint: BACK PAIN S/P FALL Time Seen by Provider: 02/22/21 15:54 Source: patient and EMS Mode of arrival: EMS Limitations: no limitations History of Present Illness: HPI Narrative: Patient states she is fallen and hurt her lower back yesterday. She is also had right flank pain with radiation to the right lower quadrant consistent with kidney stone for the past few days. Patient is diabetic. She states she does have a past medical history of kidney stones. She also has a possible history of chronic low back pain. MD elicited complaint: back pain, back injury and fall Pertinent past history: prior back pain Timing: constant Severity: severe Similar Symptoms Previously: Yes Quality: sharp and spasming Location: lumbar spine and right flank Radiation: abdomen Exacerbating factors: none Relieving factors: none Context: fall Associated symptoms: Reports abdominal pain, arthralgias, myalgias and nausea; Deny dysuria, fatigue, fecal incontinence, fever(s), numbness, tingling/numbness/burning, vomiting or weakness Work related injury: No Review of Systems Const: Denies: fever(s), body aches or fatigue Eyes: Denies: change in vision ENMT: Denies: throat pain Card: Denies: chest pain or palpitations Resp: Denies: dyspnea or wheezing GI: Reports: abdominal pain and nausea; Denies: vomiting or fecal incontinence : Reports: flank pain; Denies: difficulty voiding or dysuria Musc: Reports: back pain and other (Right flank pain); Denies: neck pain or extremity pain Skin/Breast: Denies: rash or pruritus Neuro: Denies: headache(s) or numbness in extremities Psych: Denies: anxiety Steven/Lymph: Denies: enlarged lymph nodes PFSH ED PFSH: Medical History Anxiety ASHD (arteriosclerotic heart disease) Back pain Cellulitis of right lower extremity CHF (congestive heart failure) CKD (chronic kidney disease) Coronary artery disease Cough DDD (degenerative disc disease) Decreased hearing of both ears Depression Diabetes Diabetic polyneuropathy Duodenal ulcer Dyslipidemia Edema History of GI bleed Hypertension Incarcerated incisional hernia Joint pain Left hamstring muscle strain Morbid obesity Morbilliform rash Onychomycosis PUD (peptic ulcer disease) Recurrent UTI Renal calculus Right leg pain Urinary tract infection Vertigo Vitamin B deficiency Vitamin D deficiency Wound of right lower extremity Surgical History H/O esophagogastroduodenoscopy (~06/05/19) H/O hernia repair History of coronary artery stent placement Cardiac cath on 12/13/2016 with stent placement to LAD Hx of section 3 Hx of cholecystectomy Hx of tonsillectomy S/P appendectomy S/P plastic surgery 2019, panniculectomy Family History Mother CAD (coronary artery disease) Other Hypertension Social History Quit status (tobacco): has quit using tobacco Former quit date comment: 2.5 PPD x 40 yrs Alcohol intake: unknown Female Reproductive History: Date of last menstrual period: 06/05/19 Physical Exam Const: COMMON NORMALS: patient oriented x3, no limitations, alert and well nourished EXAM LIMITATIONS: altered mental status GENERAL APPEARANCE: cooperative ORIENTATION/CONSCIOUSNESS: Yes oriented to person, Yes oriented to place and Yes oriented to time OTHER: Patient has moderate discomfort due to right flank pain and lower back pain. She is anxious. Patient is morbidly obese. HENMT: COMMON NORMALS: normocephalic and atraumatic HEAD & SCALP: normocephalic and atraumatic FACE & SINUS: normal facial exam Eye: COMMON NORMALS: EOMs intact bilaterally Neck/C-Spine: COMMON NORMALS: full ROM, no lymphadenopathy, supple and no meningeal signs GENERAL: Yes normal visual inspection Lymph: LYMPHATIC: no lymphadenopathy noted Chest: COMMONS NORMALS: normal inspection of the chest and normal palpation of entire chest wall CHEST: No Ecchymosis present and No rash Resp: COMMON NORMALS: normal respiratory effort, No retractions and clear to auscultation bilaterally EFFORT & INSPECTION: No respiratory distress AUSCULTATION: clear to auscultation bilaterally Cardio: COMMON NORMALS: regular rate, regular rhythm and Peripheral pulses 2+ throughout JUGULAR VENOUS DISTENTION: no JVD RATE: regular rate RHYTHM: regular rhythm PERIPHERAL PULSES: Peripheral pulses 2+ throughout GI: COMMON NORMALS: Soft to palpation and non-tender (Nontender the anterior abdomen.) PALPATION: Yes Soft to palpation : BLADDER/KIDNEY EXAM: Yes CVA tenderness OTHER: Patient has moderate right CVA tenderness. Mild pain along paraspinous muscles of the lower half of the lumbar spine. No step-off in the lumbar spine no rash. Back/Pelvis: GENERAL BACK: Yes CVA tenderness CVA tenderness: right Extremity: COMMON NORMALS: normal to inspection, full ROM and capillary refill normal Neuro: COMMON NORMALS: patient oriented x3, CN's II-XII intact bilaterally, moves all extremities, no focal motor deficits, no sensory deficits noted and deep tendon reflexes 2+ bilaterally SENSORIUM/ORIENTATION: Yes alert, Yes oriented to person, Yes oriented to place and Yes oriented to time MENINGEAL SIGNS: Yes no meningeal signs Psych: COMMON NORMALS: mental status grossly normal and Normal thought process present ATTITUDE: Yes Other attitude/behavior findings present (Psych) (Mild anxiety) THOUGHT PROCESS: Normal thought process present Skin: COMMON NORMALS: no rashes or lesions noted and no wounds GENERAL SKIN EXAM: no rashes or lesions noted Course Vital Signs: Vital signs: Vital Signs Pulse Rate 94 02/22/21 18:37 Respiratory Rate 14 02/22/21 18:37 Blood Pressure 134/86 02/22/21 18:37 Pulse Oximetry 96 02/22/21 18:37 MDM - Back Pain/Injury MDM Narrative: Medical decision making narrative: Patient much improved after medications. Lab Data: Attestation: I reviewed the patient's lab results. Labs: Lab Results 02/22/21 02/22/21 02/22/21 16:52 18:09 18:09 WBC 10.0 10^3/uL 10^3 /uL (4.0-10.0) RBC 3.23 10^6/uL L 10 ^6/uL (4.1-5.3) Hgb 10.7 g/dL L g/dL (11.5-15.3) Hct 31.8 % L % (37.0-47.0) MCV 98.5 fl fl (81-99) MCH 33.1 pg pg (28.0-34.0) MCHC 33.6 g/dL g/dL (30.0-36.0) RDW 16.0 % H % (12.1-15.1) Plt Count 122 10^3/cmm L 10 ^3/cmm (130-400) MPV 10.4 fL fL (7.4-10.4) Neut % (Auto) 89.6 % % Lymph % (Auto) 3.7 % % [place] % (Auto) 6.0 % % Eos % (Auto) 0.2 % % Baso % (Auto) 0.2 % % Neut # (Auto) 8.98 10^3/uL H 10 ^3/uL (1.8-7.7) Lymph # (Auto) 0.4 10^3/uL L 10^ 3/uL (0.8-4.8) [place] # (Auto) 0.6 10^3/uL 10^3/ uL (0.2-0.9) Eos # (Auto) 0.0 10^3/uL 10^3/ uL (0.0-0.8) Baso # (Auto) 0.0 10^3/uL 10^3/ uL (0.0-0.1) Nucleated RBC % (a uto) 0 % % Nucleated RBCs # 0.0 /100WBC /100W BC Sodium 130 mmol/L L mmol /L (136-145) Potassium 4.2 mmol/L mmol/L (3.5-5.1) Chloride 93 mmol/L L mmol/ L (98-107) Carbon Dioxide 22 mmol/L mmol/L (22-29) Anion Gap 19.2 H (5-19) BUN 19 mg/dL mg/dL (8-23) Creatinine 0.6 mg/dL mg/dL (0.5-0.9) GFR Calculation Not Reportable Glucose 456 mg/dL H mg/dL (65-115) Calculated Osmolal ity 292 mOsm/kg mOsm/ kg (285-295) Calcium 9.0 mg/dL mg/dL (8.5-10.5) Total Bilirubin 1.5 mg/dL H mg/dL (0.15-1.2) AST 19 U/L U/L (0-32) ALT 15 U/L U/L (0-33) Alkaline Phosphata se 242 IU/L H IU/L (35-105) Total Protein 6.2 g/dL L g/dL (6.6-8.7) Albumin 3.1 g/dL L g/dL (3.5-5.2) Globulin 3.1 g/dL g/dL (1.3-4.6) Lipase 12 U/L L U/L (13-60) Urine Color Yellow (Yellow) Urine Appearance Clear (CLEAR) Urine pH 5 (5-7) Ur Specific Gravit y 1.010 (1.005-1.030) Urine Protein Neg (Negative) Urine Glucose (UA) 4+ H (Normal) Urine Ketones Negative (Negative) Urine Blood Neg (Negative) Urine Nitrate Negative (Negative) Urine Bilirubin Neg (Negative) Urine Urobilinogen Norm mg/dL mg/dL (Negative) Ur Leukocyte Rema ase Negative (Negative) Urine RBC None /hpf /hpf (0-2) Urine WBC 0-4 /hpf H /hpf (0-5) Ur Squamous Epith Cells 0-4 /hpf H /hpf (0-5) Amorphous Sediment Not Reportable Urine Bacteria 1+ /hpf H /hpf (NONE) Imaging Data^: Other CT: Radiologist's impression: PROCEDURE INFORMATION: Exam: CT Lumbar Spine Without Contrast Exam date and time: 02/22/2021 4:07 PM Age: 70 years old Clinical indication: Injury or trauma; Fall; Blunt trauma (contusions or hematomas); Patient HX: C/O lbp / R flank pain after last night; Additional info: Pain; Injury; Fall; Low back pain TECHNIQUE: Imaging protocol: Computed tomography images of the lumbar spine without contrast. Radiation optimization: All CT scans at this facility use at least one of these dose optimization techniques: automated exposure control; mA and/or kV adjustment per patient size (includes targeted exams where dose is matched to clinical indication); or iterative reconstruction. COMPARISON: 1. CT lumbar spine wo con* [id number] 2020-05-15 04:[address] [place] [id number] 2016-12-13 15:13 RADIATION DOSE METRICS: Total DLP (mGy-cm): 2298.93 FINDINGS: Vertebrae: No acute vertebral fracture/subluxation. Mild degenerative related alignment abnormalities. Maintained vertebral body heights without fractures. Discs/Spinal canal/Neural foramina: Degenerative changes with severe L4-L5 spinal, and multilevel moderate severe foraminal stenosis. Bulky moderate facet arthropathy. Kidneys and ureters: Nonobstructing 3 mm right renal calculus. Soft tissues: Unremarkable. CT/CT lumbar spine wo con* [id number] IMPRESSION: 1. No acute vertebral fracture/subluxation. 2. Degenerative changes with severe L4-L5 spinal, and multilevel moderate severe foraminal stenosis. Dictated By:Chito Blackwood MDSigned By:Chito Blackwood MDSigned Date/Time:02/22/[address] Abd/Pel: Radiologist's impression: PROCEDURE INFORMATION: Exam: CT Abdomen And Pelvis Without Contrast Exam date and time: 02/22/2021 4:07 PM Age: 70 years old Clinical indication: Abdominal pain; Right; Prior surgery; Surgery date: 6+ months; Surgery type: Hernia, gb, appy, panniculectomy; Patient HX: C/O R flank pain w HX of stones; Additional info: Pain, renal stone protocol; R flank pain TECHNIQUE: Imaging protocol: Computed tomography of the abdomen and pelvis without contrast. Radiation optimization: All CT scans at this facility use at least one of these dose optimization techniques: automated exposure control; mA and/or kV adjustment per patient size (includes targeted exams where dose is matched to clinical indication); or iterative reconstruction. COMPARISON: 1. CT abdomen pelvis wo con [id number] 2020-06-26 18:[address] chest abd pel wo con 2020-05-15 04:41 RADIATION DOSE METRICS: Total DLP (mGy-cm): 1820.56 FINDINGS: Limitations: Artifact related to patient's arm position limits evaluation. Limited by patient's body habitus. Tubes, catheters and devices: Abdominal wall midline hernia mesh. Liver: Normal. No mass. Gallbladder and bile ducts: Normal. No calcified stones. No ductal dilation. Pancreas: Normal. No ductal dilation. Spleen: Normal. No splenomegaly. Adrenal glands: Normal. No mass. Kidneys and ureters: Benign 4.5 cm right inferior renal pole cyst. 3 x 3 mm right vesicoureteral junction calculus causes mild to moderate right renal collecting system dilatation/hydronephrosis. Stomach and bowel: Excess stool in the redundant sigmoid colon. Appendix: No evidence of appendicitis. Intraperitoneal space: Unremarkable. No free air. No significant fluid collection. Vasculature: Unremarkable. No abdominal aortic aneurysm. Lymph nodes: Unremarkable. No enlarged lymph nodes. Urinary bladder: Unremarkable as visualized. Reproductive: Unremarkable as visualized. Bones/joints: Unremarkable. No acute fracture. Soft tissues: Small para umbilical/incisional hernia. CT/CT kidney stone [id number] IMPRESSION: 1. Excess stool in the redundant sigmoid colon. 2. 3 x 3 mm right vesicoureteral junction calculus causes mild to moderate right renal collecting system dilatation/hydronephrosis. COMMENTS: Consistent with the [place] [employer]'s Incidental Findings Committee white paper (J Am Valentín Radiol 2018): Any incidental renal lesion less than 1 cm or classified as too small to characterize, or any incidental cystic renal lesion characterized as simple-appearing, is likely benign. No follow-up imaging is recommended for these lesions per consensus recommendations based on imaging criteria. Dictated By:Chito Blackwood MDSigned By:Chito Blackwood MDSigned Date/Time:02/22/211755 Discharge Plan Discharge Patient Disposition: Home Clinical Impression: Renal colic on right side, Ureterolithiasis, Degenerative disc disease, lumbar Acute lumbar myofascial strain Qualifiers: Encounter type: initial encounter Qualified Code(s): S39.012A - Strain of muscle, fascia and tendon of lower back, initial encounter Type 1 diabetes mellitus Qualifiers: Diabetes mellitus complication status: with hyperglycemia Qualified Code(s): E10.65 - Type 1 diabetes mellitus with hyperglycemia Condition: Stable Prescriptions: New Flomax 0.4 mg capsule 0.4 mg PO QPM Qty: 7 RF: 0 No Action (DME) Lift chair See Rx Instructions .Route .MEDSUPPLY Qty: 1 RF: 0 metoprolol tartrate 25 mg tablet 25 mg PO BID Qty: 60 RF: 3 pantoprazole 40 mg tablet,delayed release (DR/EC) 40 mg PO BID Qty: 60 RF: 3 polyethylene glycol 3350 [Miralax] 17 gram powder in packet 17 g PO DAILY PRN (Reason: constipation) Qty: 100 RF: 3 potassium chloride 20 mEq tablet extended release 40 meq PO BID Qty: 60 RF: 3 sucralfate 1 gram tablet 1 g PO QID Qty: 120 RF: 2 ibuprofen 800 mg tablet 800 mg PO Q8H PRN (Reason: pain) Qty: 270 RF: 0 diazepam [Valium] 5 mg tablet 5 mg PO ONCE PRN (Reason: anxiety) Qty: 2 RF: 0 cyclobenzaprine 10 mg tablet 10 mg PO TID Qty: 90 RF: 0 (DME) Diabetic Shoes See Rx Instructions .ROUTE .MEDSUPPLY Qty: 1 RF: 0 (DME) insulin syr/ndl U100 half juanito 0.3 mL 30 gauge x 1/2 syringe See Rx Instructions .ROUTE .MEDSUPPLY Qty: 100 RF: 3 (DME) lancets [Accu-Chek Softclix Lancets] Misc See Rx Instructions .ROUTE .MEDSUPPLY Qty: 200 RF: 2 (DME) Blood Glucose Test Strip See Rx Instructions .ROUTE .MEDSUPPLY Qty: 100 RF: 2 (DME) lancets Misc See Rx Instructions .ROUTE .MEDSUPPLY Qty: 100 RF: 2 Levemir U-100 Insulin 100 unit/mL solution 40 unit SUBCUT BID Qty: 10 RF: 2 insulin aspart U-100 [Novolog U-100 Insulin aspart] 100 unit/mL solution See Rx Instructions .ROUTE .COMPLEX Qty: 30 RF: 0 meclizine 25 mg tablet See Rx Instructions .ROUTE .COMPLEX Qty: 60 RF: 2 atorvastatin 40 mg tablet 40 mg PO DAILY RF: 0 allopurinol 300 mg tablet 300 mg PO BID RF: 0 mupirocin 2 % ointment See Rx Instructions .ROUTE .COMPLEX RF: 0 oxycodone 20 mg tablet 20 mg PO TID PRN (Reason: Pain) RF: 0 Victoza 3-Gunner 0.6 mg/0.1 mL (18 mg/3 mL) pen injector 1.2 mg SUBCUT DAILY RF: 0 Lasix 80 mg tablet 40 mg PO DAILY RF: 0 nitroglycerin 0.4 mg tablet, sublingual 0.4 mg sublingual Q5M PRN (Reason: Chest Pain) RF: 0 Discharge Orders: Discharge ED (Routine); Ordered 02/22/21 Ordered By: Adrian Peoples Referrals: Rubi Saenz DO [Primary Care Provider] - Discharge Diet: Advance as tolerated Discharge Activity: Increase activity as tolerated Patient Instructions: Renal Colic (ED), Low Back Strain (ED), Abdominal Pain (ED), Diabetic Hyperglycemia (ED), Diabetes Type 1: Management (ED), Opioid Safety Activity Restrictions/Additional Instructions: You have a 3 mm diameter stone about to pass into your bladder on the right. Drink plenty water. Take Flomax medication each evening to help pass the stone. The medication may drop your blood pressure slightly so take it right before bedtime. Monitor blood sugar closely. Continue home medications for discomfort. Coding Level of Care Code ED Condemnation Engineer for Rosa Fwliza Exam Comprehensive
[2021-02-22] MEDS: HYDROmorphone 1 mg/mL INJ 1 mL 0.5 MG IVP (17:21)
[2021-02-22] MEDS: ondansetron 2 mg/ML SDV 2 mL 4 MG IVP (17:21)
[2021-02-22 18:02] LABS: Add Urine Culture? No; Bacteria Urine 1+ /hpf; Bilirubin Urine Neg (Negative); Blood Urine Neg (Negative); Glucose Urine UA 4+ (Normal); Ketones Urine Negative (Negative); Leukocyte Esterase Urine Negative (Negative); Nitrate Urine Negative (Negative); Protein Urine Neg (Negative); Squamous Epithelial Cell Urine 0-4 /hpf (0-5); Urine Appearance Clear (CLEAR); Urine Color Yellow (Yellow); Urobilinogen Urine Norm (Negative); WBC Urine 0-4 /hpf (0-5); pH Urine 5 (5-7)
[2021-02-22 18:18] LABS: Basophils % 0.2 %; Eosinophils % 0.2 %; Hematocrit 31.8 % (37.0-47.0); Hemoglobin 10.7 g/dL (11.5-15.3); Lymphocytes # 0.4 10^3/uL (0.8-4.8); Lymphocytes % 3.7 %; Mean Corpuscular HGB Conc 33.6 g/dL (30.0-36.0); Mean Corpuscular Hemoglobin 33.1 pg (28.0-34.0); Mean Corpuscular Volume 98.5 fl (81-99); Mean Platelet Volume 10.4 fL (7.4-10.4); Monocytes # 0.6 10^3/uL (0.2-0.9); Neutrophils # 8.98 10^3/uL (1.8-7.7); Neutrophils % 89.6 %; Nucleated Red Blood Cells % 0 %; Platelet Count 122 10^3/cmm (130-400); Red Blood Count 3.23 10^6/uL (4.1-5.3)
[2021-02-22 18:33] LABS: Alanine Aminotransferase 15 U/L (0-33); Albumin Level 3.1 g/dL (3.5-5.2); Alkaline Phosphatase 242 IU/L (35-105); Aspartate Amino Transferase 19 U/L (0-32); Blood Urea Nitrogen 19 mg/dL (8-23); Carbon Dioxide 22 mmol/L (22-29); Chloride 93 mmol/L (98-107); Globulin 3.1 g/dL (1.3-4.6); Glucose 456 mg/dL (65-115); Lipase 12 U/L (13-60); Osmolality Calculated 292 mOsm/kg (285-295); Sodium 130 mmol/L (136-145); Total Bilirubin 1.5 mg/dL (0.15-1.2); Total Protein 6.2 g/dL (6.6-8.7)
[2021-02-22 18:34] LABS: Anion Gap 19.2 (5-19); Potassium 4.2 mmol/L (3.5-5.1)
[2021-02-22 18:37] VITALS: BP 134/86; PULSE 94; RESP 14; O2SAT 96
[2021-02-22] MEDS: insulin regular-human 100 units/1 mL 8 UNIT SUBCUT (20:12)
[2021-02-22] MEDS: HYDROmorphone 1 mg/mL INJ 1 mL 0.5 MG IM (21:00)
[2021-02-22 21:15] VITALS: RESP 20
== END 2021-02-22 21:16 | disposition home or self-care (01) ==
PROVIDERS: Emergency Provider Family Medicine; PCP Family Medicine
DX: S39.012A Strain of muscle, fascia and tendon of lower back, initial encounter (principal); N20.1 Calculus of ureter; N23 Unspecified renal colic; M51.36 Other intervertebral disc degeneration, lumbar region; E10.65 Type 1 diabetes mellitus with hyperglycemia; Z79.4 Long term (current) use of insulin; I11.0 Hypertensive heart disease with heart failure; I50.9 Heart failure, unspecified; I25.10 Atherosclerotic heart disease of native coronary artery without angina pectoris; E78.5 Hyperlipidemia, unspecified; Z87.442 Personal history of urinary calculi; Z87.891 Personal history of nicotine dependence; W19.XXXA Unspecified fall, initial encounter
CPT/HCPCS: 36415; 72131; 74176; 80053; 81001; 83690; 85025; 96372; 96374; 96375; 99283; J1170; J1815; J2405

== ENCOUNTER 2021-02-25 15:26 | Observation (INO) | payer MEDICARE, MEDICAID, SELFPAY ==
--- NOTE | 2021-02-25 | CTR_ITS ---
[facility] Final Radiology Report Call: [phone] assistance Online chat: [email or web address] Name: JOURDAN RENDON Age: 70Years F Date: 02/25/2021 SSN: [id number] : 1950 Study: CT ABDOMEN/PELVIS W Requesting Physician: KAYLEIGH MADRID Images: [id number] Add?l Studies: Provided Clinical History: PROCEDURE INFORMATION: Exam: CT Abdomen And Pelvis With Contrast Exam date and time: 02/25/2021 9:55 PM Age: 70 years old Clinical indication: Pain; Other: Hip; Patient HX: AMS TECHNIQUE: Imaging protocol: Computed tomography of the abdomen and pelvis with contrast. Radiation optimization: All CT scans at this facility use at least one of these dose optimization techniques: automated exposure control; mA and/or kV adjustment per patient size (includes targeted exams where dose is matched to clinical indication); or iterative reconstruction. Contrast material: OMNI 300; Contrast volume: 95 ml; Contrast route: INTRAVENOUS (IV); COMPARISON: CT kidney stone [id number] 02/22/2021 5:33 PM RADIATION DOSE METRICS: Total DLP (mGy-cm): 1590.04 FINDINGS: Heart: Calcifications are seen in the coronary arteries. Calcifications are present within the mitral valve annulus. Liver: There is a mild nodular contour of the liver suggesting cirrhosis. Gallbladder and bile ducts: Normal. No calcified stones. No ductal dilation. Pancreas: Normal. No ductal dilation. Spleen: The spleen is prominent measuring 15.9 cm craniocaudal dimension. Adrenal glands: There is a 2.4 x 2.1 x 2.2 cm intermediate attenuation left adrenal mass present. Kidneys and ureters: There are hypoattenuation cystic mass seen within both kidneys, the largest is seen in the lower pole of the right kidney measuring up to 4.8 cm. There is a 3.5 mm nonobstructing calculus seen in the upper pole of the right kidney. The previously noted 3 mm partially obstructing right vesicoureteral junction calculus is no longer seen. Stomach and bowel: Diverticula are present on the descending and sigmoid colon. There are no inflammatory changes seen to suggest diverticulitis. Appendix: A the appendix is visualized and is normal in configuration. Intraperitoneal space: Unremarkable. No free air. No significant fluid collection. Vasculature: Calcifications are present within the thoracic and abdominal aorta, iliac arteries and femoral arteries bilaterally and at the origins of the celiac trunk and renal arteries. There is recanalization of the umbilical vein. There are splenorenal varices present. Small gastroesophageal varices are present. Lymph nodes: Unremarkable. No enlarged lymph nodes. Urinary bladder: Unremarkable as visualized. Reproductive: Unremarkable as visualized. Bones/joints: Unremarkable. No acute fracture. Soft tissues: The left paraumbilical incisional hernia containing fat is again seen. There is haziness seen within the subcutaneous fat and fascia compatible with edema. Postoperative changes are seen in the fat fascia of the anterior abdominal wall. IMPRESSION: 1. Cirrhosis and splenomegaly. 2. Splenorenal and gastroesophageal varices and recanalization of the umbilical vein. 3. Diffuse subcutaneous edema 4. Postoperative changes seen in the subcutaneous fat and fascia the lower anterior abdominal wall and associated stable incisional hernia containing fat. 5. Stable bilateral renal cysts, the largest seen on the right measuring 4.8 cm. No further workup needed. 6. The previously noted 3 mm partially obstructing right vesicoureteral junction calculus is no longer present. 7. Left adrenal mass measuring up to 2.4 cm. This appears stable dating through 05/04/2017. No further workup needed. 8. Diverticulosis of the descending and sigmoid colon. COMMENTS: Consistent with the [employer]'s Incidental Findings Committee white paper (J Am Valentín Radiol 2018): Any incidental renal lesion less than 1 cm or classified as too small to characterize, or any incidental cystic renal lesion characterized as simple- appearing, is likely benign. No follow-up imaging is recommended for these lesions per consensus recommendations based on imaging criteria. Thank you for allowing us to participate in the care of your patient. Dictated and Authenticated by: Nestor West MD 02/25/2021 10:56 PM Central Time ([place] & [place]) [place]
--- NOTE | 2021-02-25 | CTR_ITS ---
[facility] Final Radiology Report Call: [phone] Name: JOURDAN RENDON Age: 70Years F Date: 02/25/2021 SSN: [id number] : 1950 Study: CT SPINE LUMBAR WO Requesting Physician: KAYLEIGH MADRID Images: [id number] Add?l Studies: Provided Clinical History: PROCEDURE INFORMATION: Exam: CT Lumbar Spine Without Contrast Exam date and time: 02/25/2021 9:52 PM Age: 70 years old Clinical indication: Low back pain TECHNIQUE: Imaging protocol: Computed tomography images of the lumbar spine without contrast. Radiation optimization: All CT scans at this facility use at least one of these dose optimization techniques: automated exposure control; mA and/or kV adjustment per patient size (includes targeted exams where dose is matched to clinical indication); or iterative reconstruction. COMPARISON: CT lumbar spine wo con* [id number] 02/22/2021 5:30 PM RADIATION DOSE METRICS: Total DLP (mGy-cm): 3039.19 FINDINGS: Vertebrae: There is mild deformity of the superior endplate of L2 vertebral body appearing slightly worse today compared with 05/15/2020 but appearing stable compared with 02/22/2021. Discs/Spinal canal/Neural foramina: A diffuse loss of disc height is seen within the thoracolumbar spine vacuum disc phenomenon seen at T12-L1 and L3-S1. There is bilateral neural foraminal stenosis seen L3-S1 likely secondary to the degenerative disc disease and bilateral facet hypertrophy. Other bones/joints: There is diffuse demineralization. Kidneys and ureters: There is a 4.1 cm hypoattenuation cystic mass in the lower pole of the right kidney again seen. Soft tissues: Unremarkable. IMPRESSION: 1. Multilevel degenerative disc disease with moderate bilateral neural foraminal stenosis seen L3-S1. 2. Diffuse demineralization with likely resultant deformity of the superior endplate of L2 vertebral body. This appears slightly worse compared with 05/15/2020 but appears stable compared with 02/22/2021. 3. 4.1 cm cyst in the lower pole right kidney again seen. Thank you for allowing us to participate in the care of your patient. Dictated and Authenticated by: Nestor West MD 02/25/2021 11:03 PM Central Time ([place] & [place]) SUSID
[2021-02-25 16:07] VITALS: PULSE 106; RESP 20; TEMP 36.6; O2SAT 95
--- NOTE | 2021-02-25 16:15 | ED_ITS ---
Documented by User: Anthony Mcgill DO 03/04/21 07:30 HPI - Fall General: Chief Complaint: Psychiatric Symptoms Stated Complaint: right arm pain/psych eval Time Seen by Provider: 02/25/21 16:08 History of Present Illness: HPI Narrative: 70-year-old female presents to the emergency room with a complaint of falling a lot. It is very difficult to get her to narrow down her specific complaint she repeatedly refers to pannicular rolls in the proximal medial thigh as being tender seems to indicate more so on the right than the left. 3 days ago she was seen for low back pain.She had CT at that time showed severe L4-5 spinal s tenosis multilevel moderate to severe foraminal stenosis. She previously last year had a proximal humerus fracture. She denies any shortness of breath or chest pain does not seem to have any abdominal pain. She repeatedly grasped at the upper medial thigh. There is no evidence of trauma no deformity MD complaint: fall Onset (ago): unknown Place fall occurred: home Associated symptoms-after fall: Denies abdominal pain or chest pain Review of Systems Const: Denies: fever(s) or chills Card: Denies: chest pain, dyspnea on exertion or orthopnea Resp: Denies: dyspnea, productive cough or non-productive cough GI: Denies: abdominal pain, nausea, vomiting, diarrhea or constipation PFSH ED PFSH: Medical History Anxiety ASHD (arteriosclerotic heart disease) Back pain Cellulitis of right lower extremity CHF (congestive heart failure) CKD (chronic kidney disease) Coronary artery disease Cough DDD (degenerative disc disease) Decreased hearing of both ears Depression Diabetes Diabetic polyneuropathy Duodenal ulcer Dyslipidemia Edema History of GI bleed Hypertension Incarcerated incisional hernia Joint pain Left hamstring muscle strain Morbid obesity Morbilliform rash Onychomycosis PUD (peptic ulcer disease) Recurrent UTI Renal calculus Right leg pain Urinary tract infection Vertigo Vitamin B deficiency Vitamin D deficiency Wound of right lower extremity Surgical History H/O esophagogastroduodenoscopy (~06/05/19) H/O hernia repair History of coronary artery stent placement Cardiac cath on 12/13/2016 with stent placement to LAD Hx of section 3 Hx of cholecystectomy Hx of tonsillectomy S/P appendectomy S/P plastic surgery 2019, panniculectomy Family History Mother CAD (coronary artery disease) Other Hypertension Social History Quit status (tobacco): has quit using tobacco Former quit date comment: 2.5 PPD x 40 yrs Alcohol intake: unknown Female Reproductive History: Date of last menstrual period: 06/05/19 Physical Exam Const: ORIENTATION/CONSCIOUSNESS: Yes awake HENMT: COMMON NORMALS: normocephalic and atraumatic HEAD & SCALP: normocephalic and atraumatic Neck/C-Spine: COMMON NORMALS: no JVD Resp: COMMON NORMALS: normal respiratory effort, No retractions, No use of accessory muscles and clear to auscultation bilaterally AUSCULTATION: clear to auscultation bilaterally Cardio: COMMON NORMALS: no JVD, regular rate, regular rhythm and No murmurs present (Cardio) RATE: regular rate RHYTHM: regular rhythm GI: COMMON NORMALS: Soft to palpation and No hepatosplenomegaly present AUSCULTATION: Yes normoactive bowel sounds PALPATION: Yes Soft to palpation, No Tenderness to palpation present (GI), No Guarding due to palpation present (G I) and Yes No hepatosplenomegaly present Extremity: OTHER: Bilateral lower extremity venous stasis edema, cool to the touch mid lower leg distally. Course Vital Signs: Vital signs: Vital Signs Temperature 98.0 F 03/04/21 04:00 Pulse Rate 73 03/04/21 04:00 Respiratory Rate 18 03/04/21 04:00 Blood Pressure 145/70 03/04/21 04:00 Pulse Oximetry 95 03/04/21 04:00 MDM - Fall MDM Narrative Medical decision making narrative: Care turned over to Dr. Rush at change of shift see his note from diagnosis and disposition. Lab Data Result diagrams: 03/01/21 10:45 03/02/21 05:16 Labs: Lab Results 02/25/21 02/25/21 02/25/21 18:12 18:12 18:12 WBC 3.5 10^3/uL L 10^3/uL (4.0-10.0) RBC 3.43 10^6/uL L 10^6/uL (4.1-5.3) Hgb 11.1 g/dL L g/dL (11.5-15.3) Hct 33.7 % L % (37.0-47.0) MCV 98.3 fl fl (81-99) MCH 32.4 pg pg (28.0-34.0) MCHC 32.9 g/dL g/dL (30.0-36.0) RDW 16.0 % H % (12.1-15.1) Plt Count 132 10^3/cmm 10^3/cmm (130-400) MPV 9.0 fL fL (7.4-10.4) Neut % (Auto) 89.6 % % Lymph % (Auto) 2.6 % % [place] % (Auto) 6.9 % % Eos % (Auto) 0.3 % % Baso % (Auto) 0.3 % % Neut # (Auto) 3.14 10^3/uL 10^3/uL (1.8-7.7) Lymph # (Auto) 0.1 10^3/uL L 10^3/uL (0.8-4.8) [place] # (Auto) 0.2 10^3/uL 10^3/uL (0.2-0.9) Eos # (Auto) 0.0 10^3/uL 10^3/uL (0.0-0.8) Baso # (Auto) 0.0 10^3/uL 10^3/uL (0.0-0.1) Nucleated RBC % (auto) 0 % % Nucleated RBCs # 0.0 /100WBC /100WBC PT INR Sodium 130 mmol/L L mmol/L (136-145) Potassium 4.0 mmol/L mmol/L (3.5-5.1) Chloride 91 mmol/L L mmol/L (98-107) Carbon Dioxide 25 mmol/L mmol/L (22-29) Anion Gap 18.0 (5-19) BUN 28 mg/dL H mg/dL (8-23) Creatinine 0.8 mg/dL mg/dL (0.5-0.9) GFR Calculation Not Reportable Glucose 55 mg/dL L mg/dL (65-115) POC Glucose Calculated Osmolality 273 mOsm/kg L mOsm/kg (285-295) Calcium 9.3 mg/dL mg/dL (8.5-10.5) Total Bilirubin 1.2 mg/dL mg/dL (0.15-1.2) AST 26 U/L U/L (0-32) ALT 17 U/L U/L (0-33) Alkaline Phosphatase 237 IU/L H IU/L (35-105) Ammonia Creatine Kinase 103 U/L U/L (26-192) Troponin T Baseline 16 ng/L H ng/L (0-10) Troponin T 120 Minute Delta Troponin T Troponin T Hi Sens 6Hr Troponin T Hi Sens 6Hr Delta C-Reactive Protein 46.7 mg/L H mg/L (0.0-4.9) Total Protein 7.1 g/dL g/dL (6.6-8.7) Albumin 3.6 g/dL g/dL (3.5-5.2) Globulin 3.5 g/dL g/dL (1.3-4.6) Vitamin B12 TSH Urine Color Urine Appearance Urine pH Ur Specific [place] Urine Protein Urine Glucose (UA) Urine Ketones Urine Blood Urine Nitrate Urine Bilirubin Urine Urobilinogen Ur Leukocyte Esterase Salicylates Urine Opiates Screen Acetaminophen Ur Barbiturates Screen Ur Phencyclidine Scrn Ur Amphetamines Screen U Benzodiazepines Scrn Urine Cocaine Screen U Marijuana (THC) Screen Ethyl Alcohol SARS-CoV-2 Ag (Rapid) 02/25/21 02/25/21 02/25/21 20:03 22:24 22:24 WBC RBC Hgb Hct MCV MCH MCHC RDW Plt Count MPV Neut % (Auto) Lymph % (Auto) [place] % (Auto) Eos % (Auto) Baso % (Auto) Neut # (Auto) Lymph # (Auto) [place] # (Auto) Eos # (Auto) Baso # (Auto) Nucleated RBC % (auto) Nucleated RBCs # PT INR Sodium Potassium Chloride Carbon Dioxide Anion Gap BUN Creatinine GFR Calculation Glucose POC Glucose Calculated Osmolality Calcium Total Bilirubin AST ALT Alkaline Phosphatase Ammonia Creatine Kinase Troponin T Baseline Troponin T 120 Minute 12.70 ng/L H ng/L (0-10) Delta Troponin T -3.30 ABS# L ABS# (0-10) Troponin T Hi Sens 6Hr Troponin T Hi Sens 6Hr Delta C-Reactive Protein Total Protein Albumin Globulin Vitamin B12 TSH Urine Color Yellow (Yellow) Urine Appearance Clear (CLEAR) Urine pH 5 (5-7) Ur Specific [place] 1.005 (1.005-1.030) Urine Protein Neg (Negative) Urine Glucose (UA) Norm (Normal) Urine Ketones Negative (Negative) Urine Blood Neg (Negative) Urine Nitrate Negative (Negative) Urine Bilirubin Neg (Negative) Urine Urobilinogen Norm mg/dL mg/dL (Negative) Ur Leukocyte Esterase Negative (Negative) Salicylates Urine Opiates Screen Positive ng/mL H ng/mL (Negative) Acetaminophen Ur Barbiturates Screen Negative ng/mL ng/mL (Negative) Ur Phencyclidine Scrn Negative ng/mL ng/mL (Negative) Ur Amphetamines Screen Negative ng/mL ng/mL (Negative) U Benzodiazepines Scrn Negative ng/mL ng/mL (Negative) Urine Cocaine Screen Negative ng/mL ng/mL (Negative) U Marijuana (THC) Screen Negative ng/mL ng/mL (Negative) Ethyl Alcohol SARS-CoV-2 Ag (Rapid) 02/25/21 02/25/21 02/26/21 23:46 23:46 00:15 WBC RBC Hgb Hct MCV MCH MCHC RDW Plt Count MPV Neut % (Auto) Lymph % (Auto) [place] % (Auto) Eos % (Auto) Baso % (Auto) Neut # (Auto) Lymph # (Auto) [place] # (Auto) Eos # (Auto) Baso # (Auto) Nucleated RBC % (auto) Nucleated RBCs # PT INR Sodium Potassium Chloride Carbon Dioxide Anion Gap BUN Creatinine GFR Calculation Glucose POC Glucose Calculated Osmolality Calcium Total Bilirubin AST ALT Alkaline Phosphatase Ammonia Creatine Kinase Troponin T Baseline Troponin T 120 Minute Delta Troponin T Troponin T Hi Sens 6Hr 15.77 ng/L H ng/L (0-10) Troponin T Hi Sens 6Hr Delta -0.23 ng/L L ng/L (0-12) C-Reactive Protein Total Protein Albumin Globulin Vitamin B12 TSH 2.12 uIU/mL uIU/mL (0.27-4.20) Urine Color Urine Appearance Urine pH Ur Specific [place] Urine Protein Urine Glucose (UA) Urine Ketones Urine Blood Urine Nitrate Urine Bilirubin Urine Urobilinogen Ur Leukocyte Esterase Salicylates Urine Opiates Screen Acetaminophen Ur Barbiturates Screen Ur Phencyclidine Scrn Ur Amphetamines Screen U Benzodiazepines Scrn Urine Cocaine Screen U Marijuana (THC) Screen Ethyl Alcohol < 10 mg/dL mg/dL (0-10) SARS-CoV-2 Ag (Rapid) Positive H (Negative) 02/26/21 02/26/21 02/26/21 06:57 07:45 09:10 WBC 3.2 10^3/uL L 10^3/uL (4.0-10.0) RBC 3.14 10^6/uL L 10^6/uL (4.1-5.3) Hgb 10.2 g/dL L g/dL (11.5-15.3) Hct 31.0 % L % (37.0-47.0) MCV 98.7 fl fl (81-99) MCH 32.5 pg pg (28.0-34.0) MCHC 32.9 g/dL g/dL (30.0-36.0) RDW 16.1 % H % (12.1-15.1) Plt Count 118 10^3/cmm L 10^3/cmm (130-400) MPV 9.1 fL fL (7.4-10.4) Neut % (Auto) 78.3 % % Lymph % (Auto) 7.1 % % [place] % (Auto) 14.0 % % Eos % (Auto) 0.0 % % Baso % (Auto) 0.3 % % Neut # (Auto) 2.52 10^3/uL 10^3/uL (1.8-7.7) Lymph # (Auto) 0.2 10^3/uL L 10^3/uL (0.8-4.8) [place] # (Auto) 0.5 10^3/uL 10^3/uL (0.2-0.9) Eos # (Auto) 0.0 10^3/uL 10^3/uL (0.0-0.8) Baso # (Auto) 0.0 10^3/uL 10^3/uL (0.0-0.1) Nucleated RBC % (auto) 0 % % Nucleated RBCs # 0.0 /100WBC /100WBC PT INR Sodium Potassium Chloride Carbon Dioxide Anion Gap BUN Creatinine GFR Calculation Glucose POC Glucose 86 mg/dL mg/dL 102 mg/dL mg/dL (70-110) (70-110) Calculated Osmolality Calcium Total Bilirubin AST ALT Alkaline Phosphatase Ammonia Creatine Kinase Troponin T Baseline Troponin T 120 Minute Delta Troponin T Troponin T Hi Sens 6Hr Troponin T Hi Sens 6Hr Delta C-Reactive Protein Total Protein Albumin Globulin Vitamin B12 TSH Urine Color Urine Appearance Urine pH Ur Specific [place] Urine Protein Urine Glucose (UA) Urine Ketones Urine Blood Urine Nitrate Urine Bilirubin Urine Urobilinogen Ur Leukocyte Esterase Salicylates Urine Opiates Screen Acetaminophen Ur Barbiturates Screen Ur Phencyclidine Scrn Ur Amphetamines Screen U Benzodiazepines Scrn Urine Cocaine Screen U Marijuana (THC) Screen Ethyl Alcohol SARS-CoV-2 Ag (Rapid) 02/26/21 02/26/21 02/26/21 09:10 09:10 09:10 WBC RBC Hgb Hct MCV MCH MCHC RDW Plt Count MPV Neut % (Auto) Lymph % (Auto) [place] % (Auto) Eos % (Auto) Baso % (Auto) Neut # (Auto) Lymph # (Auto) [place] # (Auto) Eos # (Auto) Baso # (Auto) Nucleated RBC % (auto) Nucleated RBCs # PT 14.70 SECONDS SECONDS (12.1-14.9) INR 1.12 (0.8-1.2) Sodium 134 mmol/L L mmol/L (136-145) Potassium 3.4 mmol/L L mmol/L (3.5-5.1) Chloride 95 mmol/L L mmol/L (98-107) Carbon Dioxide 26 mmol/L mmol/L (22-29) Anion Gap 16.4 (5-19) BUN 22 mg/dL mg/dL (8-23) Creatinine 0.7 mg/dL mg/dL (0.5-0.9) GFR Calculation Not Reportable Glucose 100 mg/dL mg/dL (65-115) POC Glucose Calculated Osmolality 281 mOsm/kg L mOsm/kg (285-295) Calcium 8.6 mg/dL mg/dL (8.5-10.5) Total Bilirubin 1.2 mg/dL mg/dL (0.15-1.2) AST 30 U/L U/L (0-32) ALT 17 U/L U/L (0-33) Alkaline Phosphatase 191 IU/L H IU/L (35-105) Ammonia 28 umol/L umol/L (11-51) Creatine Kinase Troponin T Baseline Troponin T 120 Minute Delta Troponin T Troponin T Hi Sens 6Hr Troponin T Hi Sens 6Hr Delta C-Reactive Protein Total Protein 6.1 g/dL L g/dL (6.6-8.7) Albumin 3.0 g/dL L g/dL (3.5-5.2) Globulin 3.1 g/dL g/dL (1.3-4.6) Vitamin B12 913 pg/mL pg/mL (232-1245) TSH Urine Color Urine Appearance Urine pH Ur Specific [place] Urine Protein Urine Glucose (UA) Urine Ketones Urine Blood Urine Nitrate Urine Bilirubin Urine Urobilinogen Ur Leukocyte Esterase Salicylates Urine Opiates Screen Acetaminophen Ur Barbiturates Screen Ur Phencyclidine Scrn Ur Amphetamines Screen U Benzodiazepines Scrn Urine Cocaine Screen U Marijuana (THC) Screen Ethyl Alcohol SARS-CoV-2 Ag (Rapid) 02/26/21 09:10 WBC RBC Hgb Hct MCV MCH MCHC RDW Plt Count MPV Neut % (Auto) Lymph % (Auto) [place] % (Auto) Eos % (Auto) Baso % (Auto) Neut # (Auto) Lymph # (Auto) [place] # (Auto) Eos # (Auto) Baso # (Auto) Nucleated RBC % (auto) Nucleated RBCs # PT INR Sodium Potassium Chloride Carbon Dioxide Anion Gap BUN Creatinine GFR Calculation Glucose POC Glucose Calculated Osmolality Calcium Total Bilirubin AST ALT Alkaline Phosphatase Ammonia Creatine Kinase Troponin T Baseline Troponin T 120 Minute Delta Troponin T Troponin T Hi Sens 6Hr Troponin T Hi Sens 6Hr Delta C-Reactive Protein Total Protein Albumin Globulin Vitamin B12 TSH Urine Color Urine Appearance Urine pH Ur Specific [place] Urine Protein Urine Glucose (UA) Urine Ketones Urine Blood Urine Nitrate Urine Bilirubin Urine Urobilinogen Ur Leukocyte Esterase Salicylates < 0.3 mg/dL L mg/dL (3-10) Urine Opiates Screen Acetaminophen < 5.0 ug/mL L ug/mL (10-30) Ur Barbiturates Screen Ur Phencyclidine Scrn Ur Amphetamines Screen U Benzodiazepines Scrn Urine Cocaine Screen U Marijuana (THC) Screen Ethyl Alcohol SARS-CoV-2 Ag (Rapid) Discharge Plan Discharge Patient Disposition: Placed in Observation Admit Provider: Bhargav Alvarado Clinical Impression: Suicidal ideation, COVID-19 virus detected, Hypoglycemia Back pain Qualifiers: Back pain location: low back pain Chronicity: chronic Back pain laterality: bi lateral Sciatica presence: with sciatica Sciatica laterality: sciatica of right side Qualified Code(s): M54.41 - Lumbago with sciatica, right side Major depressive disorder, recurrent episode, severe Qualifiers: Psychotic features: without psychotic features Qualified Code(s): F33.2 - Major depressive disorder, recurrent severe without psychotic features Alzheimer's dementia with behavioral disturbance Qualifiers: Alzheimer's disease onset: unspecified onset Qualified Code(s): G30.9 - Alzheimer's disease, unspecified Discharge Diet: Advance as tolerated and Resume prior tube feeds Coding Level of Care Code ED Dye Range Feeder for Chg Fwd Exam Detailed Documented by User: Kristie Rush MD 02/26/21 05:36 HPI - Fall General: Chief Complaint: Psychiatric Symptoms Stated Complaint: right arm pain/psych eval Time Seen by Provider: 02/25/21 16:08 PFSH ED PFSH: Medical History Anxiety ASHD (arteriosclerotic heart disease) Back pain Cellulitis of right lower extremity CHF (congestive heart failure) CKD (chronic kidney disease) Coronary artery disease Cough DDD (degenerative disc disease) Decreased hearing of both ears Depression Diabetes Diabetic polyneuropathy Duodenal ulcer Dyslipidemia Edema History of GI bleed Hypertension Incarcerated incisional hernia Joint pain Left hamstring muscle strain Morbid obesity Morbilliform rash Onychomycosis PUD (peptic ulcer disease) Recurrent UTI Renal calculus Right leg pain Urinary tract infection Vertigo Vitamin B deficiency Vitamin D deficiency Wound of right lower extremity Surgical History H/O esophagogastroduodenoscopy (~06/05/19) H/O hernia repair History of coronary artery stent placement Cardiac cath on 12/13/2016 with stent placement to LAD Hx of section 3 Hx of cholecystectomy Hx of tonsillectomy S/P appendectomy S/P plastic surgery 2019, panniculectomy Family History Mother CAD (coronary artery disease) Other Hypertension Social History Quit status (tobacco): has quit using tobacco Former quit date comment: 2.5 PPD x 40 yrs Alcohol intake: unknown Course Reevaluation(s): Reevaluation #1: Patient has been suicidal along with some psychoses. Patient did test COVID- positive having difficulty placing her in geriatric psych at this time I have spoke to Dr. Gomez who is consulted and will see patient in the ER for further recommendation Time: 05:35 Vital Signs: Vital signs: Vital Signs Temperature 98.0 F 03/04/21 04:00 Pulse Rate 73 03/04/21 04:00 Respiratory Rate 18 03/04/21 04:00 Blood Pressure 145/70 03/04/21 04:00 Pulse Oximetry 95 03/04/21 04:00 MDM - Fall MDM Narrative Medical decision making narrative: Patient had presented here with back pain, some leg pain ultrasound here showed no signs of arterial occlusion CT of her back and abdomen are all normal patient's blood work is normal as well. I went to speak her to discharge her and Adult Protective Services was called as well and stated that she had called him today saying she was suicidal upon speaking to her further she states that she is scared at home feels like she is going to kill herself at home we will seek geriatric psychiatric placement at this time. Lab Data Result diagrams: 03/01/21 10:45 03/02/21 05:16 Labs: Lab Results 02/25/21 02/25/21 02/25/21 18:12 18:12 18:12 WBC 3.5 10^3/uL L 10^3/uL (4.0-10.0) RBC 3.43 10^6/uL L 10^6/uL (4.1-5.3) Hgb 11.1 g/dL L g/dL (11.5-15.3) Hct 33.7 % L % (37.0-47.0) MCV 98.3 fl fl (81-99) MCH 32.4 pg pg (28.0-34.0) MCHC 32.9 g/dL g/dL (30.0-36.0) RDW 16.0 % H % (12.1-15.1) Plt Count 132 10^3/cmm 10^3/cmm (130-400) MPV 9.0 fL fL (7.4-10.4) Neut % (Auto) 89.6 % % Lymph % (Auto) 2.6 % % [place] % (Auto) 6.9 % % Eos % (Auto) 0.3 % % Baso % (Auto) 0.3 % % Neut # (Auto) 3.14 10^3/uL 10^3/uL (1.8-7.7) Lymph # (Auto) 0.1 10^3/uL L 10^3/uL (0.8-4.8) [place] # (Auto) 0.2 10^3/uL 10^3/uL (0.2-0.9) Eos # (Auto) 0.0 10^3/uL 10^3/uL (0.0-0.8) Baso # (Auto) 0.0 10^3/uL 10^3/uL (0.0-0.1) Nucleated RBC % (auto) 0 % % Nucleated RBCs # 0.0 /100WBC /100WBC PT INR Sodium 130 mmol/L L mmol/L (136-145) Potassium 4.0 mmol/L mmol/L (3.5-5.1) Chloride 91 mmol/L L mmol/L (98-107) Carbon Dioxide 25 mmol/L mmol/L (22-29) Anion Gap 18.0 (5-19) BUN 28 mg/dL H mg/dL (8-23) Creatinine 0.8 mg/dL mg/dL (0.5-0.9) GFR Calculation Not Reportable Glucose 55 mg/dL L mg/dL (65-115) POC Glucose Calculated Osmolality 273 mOsm/kg L mOsm/kg (285-295) Calcium 9.3 mg/dL mg/dL (8.5-10.5) Total Bilirubin 1.2 mg/dL mg/dL (0.15-1.2) AST 26 U/L U/L (0-32) ALT 17 U/L U/L (0-33) Alkaline Phosphatase 237 IU/L H IU/L (35-105) Ammonia Creatine Kinase 103 U/L U/L (26-192) Troponin T Baseline 16 ng/L H ng/L (0-10) Troponin T 120 Minute Delta Troponin T Troponin T Hi Sens 6Hr Troponin T Hi Sens 6Hr Delta C-Reactive Protein 46.7 mg/L H mg/L (0.0-4.9) Total Protein 7.1 g/dL g/dL (6.6-8.7) Albumin 3.6 g/dL g/dL (3.5-5.2) Globulin 3.5 g/dL g/dL (1.3-4.6) Vitamin B12 TSH Urine Color Urine Appearance Urine pH Ur Specific [place] Urine Protein Urine Glucose (UA) Urine Ketones Urine Blood Urine Nitrate Urine Bilirubin Urine Urobilinogen Ur Leukocyte Esterase Salicylates Urine Opiates Screen Acetaminophen Ur Barbiturates Screen Ur Phencyclidine Scrn Ur Amphetamines Screen U Benzodiazepines Scrn Urine Cocaine Screen U Marijuana (THC) Screen Ethyl Alcohol SARS-CoV-2 Ag (Rapid) 02/25/21 02/25/21 02/25/21 20:03 22:24 22:24 WBC RBC Hgb Hct MCV MCH MCHC RDW Plt Count MPV Neut % (Auto) Lymph % (Auto) [place] % (Auto) Eos % (Auto) Baso % (Auto) Neut # (Auto) Lymph # (Auto) [place] # (Auto) Eos # (Auto) Baso # (Auto) Nucleated RBC % (auto) Nucleated RBCs # PT INR Sodium Potassium Chloride Carbon Dioxide Anion Gap BUN Creatinine GFR Calculation Glucose POC Glucose Calculated Osmolality Calcium Total Bilirubin AST ALT Alkaline Phosphatase Ammonia Creatine Kinase Troponin T Baseline Troponin T 120 Minute 12.70 ng/L H ng/L (0-10) Delta Troponin T -3.30 ABS# L ABS# (0-10) Troponin T Hi Sens 6Hr Troponin T Hi Sens 6Hr Delta C-Reactive Protein Total Protein Albumin Globulin Vitamin B12 TSH Urine Color Yellow (Yellow) Urine Appearance Clear (CLEAR) Urine pH 5 (5-7) Ur Specific [place] 1.005 (1.005-1.030) Urine Protein Neg (Negative) Urine Glucose (UA) Norm (Normal) Urine Ketones Negative (Negative) Urine Blood Neg (Negative) Urine Nitrate Negative (Negative) Urine Bilirubin Neg (Negative) Urine Urobilinogen Norm mg/dL mg/dL (Negative) Ur Leukocyte Esterase Negative (Negative) Salicylates Urine Opiates Screen Positive ng/mL H ng/mL (Negative) Acetaminophen Ur Barbiturates Screen Negative ng/mL ng/mL (Negative) Ur Phencyclidine Scrn Negative ng/mL ng/mL (Negative) Ur Amphetamines Screen Negative ng/mL ng/mL (Negative) U Benzodiazepines Scrn Negative ng/mL ng/mL (Negative) Urine Cocaine Screen Negative ng/mL ng/mL (Negative) U Marijuana (THC) Screen Negative ng/mL ng/mL (Negative) Ethyl Alcohol SARS-CoV-2 Ag (Rapid) 02/25/21 02/25/21 02/26/21 23:46 23:46 00:15 WBC RBC Hgb Hct MCV MCH MCHC RDW Plt Count MPV Neut % (Auto) Lymph % (Auto) [place] % (Auto) Eos % (Auto) Baso % (Auto) Neut # (Auto) Lymph # (Auto) [place] # (Auto) Eos # (Auto) Baso # (Auto) Nucleated RBC % (auto) Nucleated RBCs # PT INR Sodium Potassium Chloride Carbon Dioxide Anion Gap BUN Creatinine GFR Calculation Glucose POC Glucose Calculated Osmolality Calcium Total Bilirubin AST ALT Alkaline Phosphatase Ammonia Creatine Kinase Troponin T Baseline Troponin T 120 Minute Delta Troponin T Troponin T Hi Sens 6Hr 15.77 ng/L H ng/L (0-10) Troponin T Hi Sens 6Hr Delta -0.23 ng/L L ng/L (0-12) C-Reactive Protein Total Protein Albumin Globulin Vitamin B12 TSH 2.12 uIU/mL uIU/mL (0.27-4.20) Urine Color Urine Appearance Urine pH Ur Specific [place] Urine Protein Urine Glucose (UA) Urine Ketones Urine Blood Urine Nitrate Urine Bilirubin Urine Urobilinogen Ur Leukocyte Esterase Salicylates Urine Opiates Screen Acetaminophen Ur Barbiturates Screen Ur Phencyclidine Scrn Ur Amphetamines Screen U Benzodiazepines Scrn Urine Cocaine Screen U Marijuana (THC) Screen Ethyl Alcohol < 10 mg/dL mg/dL (0-10) SARS-CoV-2 Ag (Rapid) Positive H (Negative) 02/26/21 02/26/21 02/26/21 06:57 07:45 09:10 WBC 3.2 10^3/uL L 10^3/uL (4.0-10.0) RBC 3.14 10^6/uL L 10^6/uL (4.1-5.3) Hgb 10.2 g/dL L g/dL (11.5-15.3) Hct 31.0 % L % (37.0-47.0) MCV 98.7 fl fl (81-99) MCH 32.5 pg pg (28.0-34.0) MCHC 32.9 g/dL g/dL (30.0-36.0) RDW 16.1 % H % (12.1-15.1) Plt Count 118 10^3/cmm L 10^3/cmm (130-400) MPV 9.1 fL fL (7.4-10.4) Neut % (Auto) 78.3 % % Lymph % (Auto) 7.1 % % [place] % (Auto) 14.0 % % Eos % (Auto) 0.0 % % Baso % (Auto) 0.3 % % Neut # (Auto) 2.52 10^3/uL 10^3/uL (1.8-7.7) Lymph # (Auto) 0.2 10^3/uL L 10^3/uL (0.8-4.8) [place] # (Auto) 0.5 10^3/uL 10^3/uL (0.2-0.9) Eos # (Auto) 0.0 10^3/uL 10^3/uL (0.0-0.8) Baso # (Auto) 0.0 10^3/uL 10^3/uL (0.0-0.1) Nucleated RBC % (auto) 0 % % Nucleated RBCs # 0.0 /100WBC /100WBC PT INR Sodium Potassium Chloride Carbon Dioxide Anion Gap BUN Creatinine GFR Calculation Glucose POC Glucose 86 mg/dL mg/dL 102 mg/dL mg/dL (70-110) (70-110) Calculated Osmolality Calcium Total Bilirubin AST ALT Alkaline Phosphatase Ammonia Creatine Kinase Troponin T Baseline Troponin T 120 Minute Delta Troponin T Troponin T Hi Sens 6Hr Troponin T Hi Sens 6Hr Delta C-Reactive Protein Total Protein Albumin Globulin Vitamin B12 TSH Urine Color Urine Appearance Urine pH Ur Specific [place] Urine Protein Urine Glucose (UA) Urine Ketones Urine Blood Urine Nitrate Urine Bilirubin Urine Urobilinogen Ur Leukocyte Esterase Salicylates Urine Opiates Screen Acetaminophen Ur Barbiturates Screen Ur Phencyclidine Scrn Ur Amphetamines Screen U Benzodiazepines Scrn Urine Cocaine Screen U Marijuana (THC) Screen Ethyl Alcohol SARS-CoV-2 Ag (Rapid) 02/26/21 02/26/21 02/26/21 09:10 09:10 09:10 WBC RBC Hgb Hct MCV MCH MCHC RDW Plt Count MPV Neut % (Auto) Lymph % (Auto) [place] % (Auto) Eos % (Auto) Baso % (Auto) Neut # (Auto) Lymph # (Auto) [place] # (Auto) Eos # (Auto) Baso # (Auto) Nucleated RBC % (auto) Nucleated RBCs # PT 14.70 SECONDS SECONDS (12.1-14.9) INR 1.12 (0.8-1.2) Sodium 134 mmol/L L mmol/L (136-145) Potassium 3.4 mmol/L L mmol/L (3.5-5.1) Chloride 95 mmol/L L mmol/L (98-107) Carbon Dioxide 26 mmol/L mmol/L (22-29) Anion Gap 16.4 (5-19) BUN 22 mg/dL mg/dL (8-23) Creatinine 0.7 mg/dL mg/dL (0.5-0.9) GFR Calculation Not Reportable Glucose 100 mg/dL mg/dL (65-115) POC Glucose Calculated Osmolality 281 mOsm/kg L mOsm/kg (285-295) Calcium 8.6 mg/dL mg/dL (8.5-10.5) Total Bilirubin 1.2 mg/dL mg/dL (0.15-1.2) AST 30 U/L U/L (0-32) ALT 17 U/L U/L (0-33) Alkaline Phosphatase 191 IU/L H IU/L (35-105) Ammonia 28 umol/L umol/L (11-51) Creatine Kinase Troponin T Baseline Troponin T 120 Minute Delta Troponin T Troponin T Hi Sens 6Hr Troponin T Hi Sens 6Hr Delta C-Reactive Protein Total Protein 6.1 g/dL L g/dL (6.6-8.7) Albumin 3.0 g/dL L g/dL (3.5-5.2) Globulin 3.1 g/dL g/dL (1.3-4.6) Vitamin B12 913 pg/mL pg/mL (232-1245) TSH Urine Color Urine Appearance Urine pH Ur Specific [place] Urine Protein Urine Glucose (UA) Urine Ketones Urine Blood Urine Nitrate Urine Bilirubin Urine Urobilinogen Ur Leukocyte Esterase Salicylates Urine Opiates Screen Acetaminophen Ur Barbiturates Screen Ur Phencyclidine Scrn Ur Amphetamines Screen U Benzodiazepines Scrn Urine Cocaine Screen U Marijuana (THC) Screen Ethyl Alcohol SARS-CoV-2 Ag (Rapid) 02/26/21 09:10 WBC RBC Hgb Hct MCV MCH MCHC RDW Plt Count MPV Neut % (Auto) Lymph % (Auto) [place] % (Auto) Eos % (Auto) Baso % (Auto) Neut # (Auto) Lymph # (Auto) [place] # (Auto) Eos # (Auto) Baso # (Auto) Nucleated RBC % (auto) Nucleated RBCs # PT INR Sodium Potassium Chloride Carbon Dioxide Anion Gap BUN Creatinine GFR Calculation Glucose POC Glucose Calculated Osmolality Calcium Total Bilirubin AST ALT Alkaline Phosphatase Ammonia Creatine Kinase Troponin T Baseline Troponin T 120 Minute Delta Troponin T Troponin T Hi Sens 6Hr Troponin T Hi Sens 6Hr Delta C-Reactive Protein Total Protein Albumin Globulin Vitamin B12 TSH Urine Color Urine Appearance Urine pH Ur Specific [place] Urine Protein Urine Glucose (UA) Urine Ketones Urine Blood Urine Nitrate Urine Bilirubin Urine Urobilinogen Ur Leukocyte Esterase Salicylates < 0.3 mg/dL L mg/dL (3-10) Urine Opiates Screen Acetaminophen < 5.0 ug/mL L ug/mL (10-30) Ur Barbiturates Screen Ur Phencyclidine Scrn Ur Amphetamines Screen U Benzodiazepines Scrn Urine Cocaine Screen U Marijuana (THC) Screen Ethyl Alcohol SARS-CoV-2 Ag (Rapid) Discharge Plan Discharge Patient Disposition: Placed in Observation Admit Provider: Bhargav Alvarado Clinical Impression: Suicidal ideation, COVID-19 virus detected, Hypoglycemia Back pain Qualifiers: Back pain location: low back pain Chronicity: chronic Back pain laterality: bilateral Sciatica presence: with sciatica Sciatica laterality: sciatica of right side Qualified Code(s): M54.41 - Lumbago with sciatica, right side Major depressive disorder, recurrent episode, severe Qualifiers: Psychotic features: without psychotic features Qualified Code(s): F33.2 - Major depressive disorder, recurrent severe without psychotic features Alzheimer's dementia with behavioral disturbance Qualifiers: Alzheimer's disease onset: unspecified onset Qualified Code(s): G30.9 - Alzheimer's disease, unspecified Discharge Diet: Advance as tolerated and Resume prior tube feeds Coding Level of Care Code ED Dye Range Feeder for g Fwd Exam Detailed
--- NOTE | 2021-02-25 16:31 | XRR_ITS ---
NOTE: Report was unsigned for reason: Order was edited. Original Signature date and time was: 02/25/21 @ 6366 PROCEDURE INFORMATION: Exam: XR Bilateral Hips Exam date and time: 02/25/2021 4:31 PM Age: 70 years old Clinical indication: Hip pain; Bilateral; Additional info: Arm pain TECHNIQUE: Imaging protocol: XR bilateral hips. Views: 2 views of hips with pelvis when performed. COMPARISON: CT kidney stone [id number] 02/22/2021 5:33 PM FINDINGS: Bones/joints: Moderate osteoarthritis of the hips bilaterally. Soft tissues: Unremarkable. MTDD XR/XR hip BI 2V wo/w pel [id number] IMPRESSION: Moderate osteoarthritis of the hips bilaterally.
--- NOTE | 2021-02-25 16:33 | ECG_ITS ---
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 Measurements Intervals [place] Rate: 103 P: 127 ME: 183 QRS: -43 QRSD: 106 T: 65 QT: 343 QTc: 451 Interpretive Statements SINUS TACHYCARDIA WITH OCCASIONAL VENTRICULAR PREMATURE COMPLEXES WITH OCCASIONAL SUPRAVENTRICULAR PREMATURE COMPLEXES LEFT AXIS DEVIATION [QRS AXIS < -30] Compared to ECG 09/16/2020 18:14:13 Ventricular premature complex(es) now present Sinus rhythm no longer present Incomplete right bundle-branch block no longer present Myocardial infarct finding no longer present Electronically Signed On 02-26-2021 19:18:16 GANG SAWYER by Chelsea Brewer M.D. [id number]
--- NOTE | 2021-02-25 16:34 | XRR_ITS ---
PROCEDURE INFORMATION: Exam: XR Right Humerus Exam date and time: 02/25/2021 4:34 PM Age: 70 years old Clinical indication: Pain; Upper arm; Right TECHNIQUE: Imaging protocol: XR Right humerus. Views: 2 or more views. COMPARISON: CR XR knees AP WB w RT lmt ORTH 05/18/2019 11:01 AM FINDINGS: Bones/joints: Rotator cuff calcification suspected consistent with calcific tendinitis. Soft tissues: Normal. XR/[place] [id number] IMPRESSION: Rotator cuff calcification suspected consistent with calcific tendinitis.
--- NOTE | 2021-02-25 16:49 | USCV_ITS ---
Yesika Sanchez Age: 70 Gender: F : 1950 Exam Date: 02/25/2021 17:52 Ordering Phys: Anthony Mcgill DO Technologist: Exam Location: [facility] [place] Indication: PAIN RIGHT LEFT Brachial 120.00 mmHg Brachial 120.00 mmHg Pressure (mmHg) Waveform Pressure (mmHg) Waveform 120.00 OUTREACH LIBRARIAN 110.00 120.00 DPA 130.00 1.00 Ankle/Brachial Index 1.10 FINDINGS Normal resting MELINA 1.0 on the right side and 1.1 on the left side CONCLUSIONS No evidence of any significant arterial obstruction, based on the above findings. Dr Bobbi Chandra MD [facility] (Electronically Signed) Final Date: 26 February 2021 18:53 S
[2021-02-25 18:17] LABS: Basophils % 0.3 %; Eosinophils % 0.3 %; Hematocrit 33.7 % (37.0-47.0); Hemoglobin 11.1 g/dL (11.5-15.3); Lymphocytes # 0.1 10^3/uL (0.8-4.8); Lymphocytes % 2.6 %; Mean Corpuscular HGB Conc 32.9 g/dL (30.0-36.0); Mean Corpuscular Hemoglobin 32.4 pg (28.0-34.0); Mean Corpuscular Volume 98.3 fl (81-99); Monocytes # 0.2 10^3/uL (0.2-0.9); Monocytes % 6.9 %; Neutrophils # 3.14 10^3/uL (1.8-7.7); Neutrophils % 89.6 %; Nucleated Red Blood Cells % 0 %; Platelet Count 132 10^3/cmm (130-400); Red Blood Count 3.43 10^6/uL (4.1-5.3); White Blood Count 3.5 10^3/uL (4.0-10.0)
[2021-02-25 18:40] LABS: Troponin(5th) Baseline 16 ng/L (0-10)
[2021-02-25 18:43] LABS: Alanine Aminotransferase 17 U/L (0-33); Albumin Level 3.6 g/dL (3.5-5.2); Alkaline Phosphatase 237 IU/L (35-105); Aspartate Amino Transferase 26 U/L (0-32); Blood Urea Nitrogen 28 mg/dL (8-23); C Reactive Protein 46.7 mg/L (0.0-4.9); Calcium 9.3 mg/dL (8.5-10.5); Carbon Dioxide 25 mmol/L (22-29); Chloride 91 mmol/L (98-107); Creatine Phosphokinase 103 U/L (26-192); Globulin 3.5 g/dL (1.3-4.6); Glucose 55 mg/dL (65-115); Osmolality Calculated 273 mOsm/kg (285-295); Sodium 130 mmol/L (136-145); Total Bilirubin 1.2 mg/dL (0.15-1.2); Total Protein 7.1 g/dL (6.6-8.7)
[2021-02-25] MEDS: ondansetron 2 mg/ML SDV 2 mL 4 MG IVP (18:43)
[2021-02-25 18:45] VITALS: RESP 22
[2021-02-25] MEDS: morphine 4 mg/mL SDV 1 mL IVP (18:45)
[2021-02-25 18:48] VITALS: PULSE 98; RESP 20; O2SAT 96
--- NOTE | 2021-02-25 19:28 | PC.NURSE ---
report received, patient in stretcher with c/o muscle cramping in right hip and upper leg. repositioned for comfort,
[2021-02-25 19:29] VITALS: PULSE 99; RESP 21; TEMP 36.8; O2SAT 99
[2021-02-25 21:19] VITALS: BP 155/121
[2021-02-25 21:34] VITALS: RESP 20
[2021-02-25] MEDS: ondansetron 2 mg/ML SDV 2 mL 4 MG (21:34)
[2021-02-25] MEDS: morphine 4 mg/mL SDV 1 mL (21:34)
--- NOTE | 2021-02-25 22:33 | ECG_ITS ---
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 Measurements Intervals [place] Rate: 105 P: 78 MN: 176 QRS: -45 QRSD: 108 T: 59 QT: 360 QTc: 476 Interpretive Statements SINUS TACHYCARDIA WITH FREQUENT VENTRICULAR PREMATURE COMPLEXES LEFT ANTERIOR FASCICULAR BLOCK [QRS AXIS <= -45, QR IN I, RS IN II] MODERATE ST DEPRESSION [0.05+ mV ST DEPRESSION] Compared to ECG 02/25/2021 18:12:16 Left anterior fascicular block now present ST (T wave) deviation now present Left-axis deviation no longer present Electronically Signed On 02-26-2021 19:21:09 [employer] by Chelsea Brewer M.D. [id number]
[2021-02-25 22:36] LABS: Add Urine Microscopic? NO; Charge for UA Resulting for Rev
[2021-02-25 22:40] LABS: Bilirubin Urine Neg (Negative); Blood Urine Neg (Negative); Glucose Urine UA Norm (Normal); Ketones Urine Negative (Negative); Leukocyte Esterase Urine Negative (Negative); Nitrate Urine Negative (Negative); Protein Urine Neg (Negative); Specific Gravity, Urine 1.005 (1.005-1.030); Urine Appearance Clear (CLEAR); Urine Color Yellow (Yellow); Urobilinogen Urine Norm (Negative); pH Urine 5 (5-7)
[2021-02-25] MEDS: iohexol 300 mg/mL 100 mL Btl IV (22:51)
--- NOTE | 2021-02-26 00:10 | PC.NURSE ---
Spoke to SHAYLA Martin, she states that the patient called the hotline and had verbal expressions of suicidal ideation. MD updated now expecting psych admit.
[2021-02-26 00:15] LABS: Troponin 5 6HR 15.77 ng/L (0-10); Troponin 5 6HR Delta -0.23 ng/L (0-12)
[2021-02-26] MEDS: haloperidol inj 5 mg/mL INJ 1 mL IVP (00:24)
[2021-02-26 00:38] LABS: Amphetamines Screen Urine Negative (Negative); Barbiturates Screen Urine Negative (Negative); Benzodiazepines Screen Urine Negative (Negative); Cocaine Screen Urine Negative (Negative); Opiate Screen Urine Positive (Negative); PCP Screen Urine Negative (Negative); THC Screen Urine Negative (Negative)
[2021-02-26 00:45] LABS: Thyroid Stimulating Hormone 2.12 uIU/mL (0.27-4.20)
[2021-02-26 00:49] LABS: SARS Covid-2 Antigen Positive (Negative)
[2021-02-26 00:49] LABS: Alcohol Level < 10 mg/dL (0-10)
--- NOTE | 2021-02-26 03:14 | PC.NURSE ---
remains restless, continues to states can not go home because bad cari respirations even equal and unlabored. states pain to bilateral legs.
--- NOTE | 2021-02-26 06:05 | ED.C_ITS ---
HPI - Psych General: Chief Complaint: Psychiatric Symptoms Stated Complaint: right arm pain/psych eval Time Seen by Provider: 02/25/21 16:08 Source: patient and other (ER physician) Limitations: other (dementia) History of Present Illness: HPI Narrative: c/o back pain; reportedly was suicidal yesterday. lives alone and unable to care for self complaint: feels depressed Duration: constant Associated psychiatric symptoms: depression Associated symptoms: Reports depression Review of Systems Const: Denies: fever(s) Resp: Reports: non-productive cough (for 3 days); Denies: dyspnea GI: Denies: abdominal pain Musc: Reports: back pain Psych: Reports: anxiety and depression PFSH ED PFSH: Medical History Anxiety ASHD (arteriosclerotic heart disease) Back pain Cellulitis of right lower extremity CHF (congestive heart failure) CKD (chronic kidney disease) Coronary artery disease Cough DDD (degenerative disc disease) Decreased hearing of both ears Depression Diabetes Diabetic polyneuropathy Duodenal ulcer Dyslipidemia Edema History of GI bleed Hypertension Incarcerated incisional hernia Joint pain Left hamstring muscle strain Morbid obesity Morbilliform rash Onychomycosis PUD (peptic ulcer disease) Recurrent UTI Renal calculus Right leg pain Urinary tract infection Vertigo Vitamin B deficiency Vitamin D deficiency Wound of right lower extremity Surgical History H/O esophagogastroduodenoscopy (~06/05/19) H/O hernia repair History of coronary artery stent placement Cardiac cath on 12/13/2016 with stent placement to LAD Hx of section 3 Hx of cholecystectomy Hx of tonsillectomy S/P appendectomy S/P plastic surgery 2019, panniculectomy Family History Mother CAD (coronary artery disease) Other Hypertension Social History Quit status (tobacco): has quit using tobacco Former quit date comment: 2.5 PPD x 40 yrs Alcohol intake: unknown Female Reproductive History: Date of last menstrual period: 06/05/19 Physical Exam Const: COMMON NORMALS: no acute distress, patient oriented x3, no limitations and well nourished GENERAL APPEARANCE: cooperative NUTRITIONAL APPEARANCE: obese OTHER: anxious HENMT: COMMON NORMALS: normocephalic and atraumatic HEAD & SCALP: normocephalic and atraumatic FACE & SINUS: normal facial exam Eye: COMMON NORMALS: EOMs intact bilaterally Neck/C-Spine: COMMON NORMALS: full ROM, no lymphadenopathy, supple and no meningeal signs GENERAL: Yes normal visual inspection Chest: COMMONS NORMALS: normal inspection of the chest and normal palpation of entire chest wall CHEST: No Ecchymosis present and No rash Resp: COMMON NORMALS: normal respiratory effort, No retractions and clear to auscultation bilaterally EFFORT & INSPECTION: No respiratory distress AUSCULTATION: clear to auscultation bilaterally Cardio: COMMON NORMALS: regular rate, regular rhythm and Peripheral pulses 2+ throughout JUGULAR VENOUS DISTENTION: no JVD RATE: regular rate RHYTHM: regular rhythm PERIPHERAL PULSES: Peripheral pulses 2+ throughout GI: COMMON NORMALS: Normal to inspection, nondistended, normoactive bowel sounds present and non-tender OTHER: morbid obesity : COMMON NORMALS: Yes no CVA tenderness BLADDER/KIDNEY EXAM: Yes no CVA tenderness Back/Pelvis: COMMON NORMALS: no CVA tenderness Extremity: COMMON NORMALS: normal to inspection, full ROM and capillary refill normal OTHER: Moving all extremities well. Deep tendon reflexes 2+ out of 4 bilaterally Neuro: COMMON NORMALS: patient oriented x3, CN's II-XII intact bilaterally, moves all extremities, no focal motor deficits, no sensory deficits noted and deep tendon reflexes 2+ bilaterally MENINGEAL SIGNS: Yes no meningeal signs Psych: OTHER: Anxious Skin: COMMON NORMALS: no rashes or lesions noted and no wounds GENERAL SKIN EXAM: no rashes or lesions noted Course Vital Signs: Vital signs: Vital Signs Temperature 98.2 F 02/25/21 19:29 Pulse Rate 98 02/26/21 07:48 Respiratory Rate 15 02/26/21 07:50 Blood Pressure 126/90 02/26/21 07:48 Pulse Oximetry 96 02/26/21 07:50 MDM - Psych MDM Narrative: Medical decision making narrative: 0600: I assumed care from Dr. Rush at shift change. See his chart and documentation. 0720: Patient states cough started 3 days ago. She has chronic low back pain. She states pain radiates down her right leg. She states she does not incont inent of urine but has not urinated the bed a couple times since she could not get up out of bed. Oxygen saturation on room air is 95%. 0820: Discussed case with psychiatrist Dr. Holley. He believes the patient has mild to moderate dementia and is not suicidal at this time. She did complain of mild depression but he does not feel that she needs to be admitted to geriatric psychiatry at this time. He does feel like patient probably needs placement somewhere due to her inability to care for herself. 0905: Dr. Alvarado hospitalist spoke with family friend assist patient. Family friend by name of Nestor Barajas with a phone number of [phone] stated that patient has no family around here to care for her. They are unavailable to help with decision making. Mr. Barajas stated that patient lives alone and he sees after her. Dr. Alvarado states patient will require observation status in the hospital. ammonia is normal Lab Data: Attestation: I reviewed the patient's lab results. Lab results narrative: repeat cbg 0700 is 86. diet ordered. Labs: Lab Results 02/25/21 02/25/21 02/25/21 18:12 18:12 18:12 WBC 3.5 10^3/uL L 10^ 3/uL (4.0-10.0) RBC 3.43 10^6/uL L 10 ^6/uL (4.1-5.3) Hgb 11.1 g/dL L g/dL (11.5-15.3) Hct 33.7 % L % (37.0-47.0) MCV 98.3 fl fl (81-99) MCH 32.4 pg pg (28.0-34.0) MCHC 32.9 g/dL g/dL (30.0-36.0) RDW 16.0 % H % (12.1-15.1) Plt Count 132 10^3/cmm 10^3 /cmm (130-400) MPV 9.0 fL fL (7.4-10.4) Neut % (Auto) 89.6 % % Lymph % (Auto) 2.6 % % Braxton % (Auto) 6.9 % % Eos % (Auto) 0.3 % % Baso % (Auto) 0.3 % % Neut # (Auto) 3.14 10^3/uL 10^3 /uL (1.8-7.7) Lymph # (Auto) 0.1 10^3/uL L 10^ 3/uL (0.8-4.8) Braxton # (Auto) 0.2 10^3/uL 10^3/ uL (0.2-0.9) Eos # (Auto) 0.0 10^3/uL 10^3/ uL (0.0-0.8) Baso # (Auto) 0.0 10^3/uL 10^3/ uL (0.0-0.1) Nucleated RBC % (a uto) 0 % % Nucleated RBCs # 0.0 /100WBC /100W BC PT INR Sodium 130 mmol/L L mmol /L (136-145) Potassium 4.0 mmol/L mmol/L (3.5-5.1) Chloride 91 mmol/L L mmol/ L (98-107) Carbon Dioxide 25 mmol/L mmol/L (22-29) Anion Gap 18.0 (5-19) BUN 28 mg/dL H mg/dL (8-23) Creatinine 0.8 mg/dL mg/dL (0.5-0.9) GFR Calculation Not Reportable Glucose 55 mg/dL L mg/dL (65-115) POC Glucose Calculated Osmolal ity 273 mOsm/kg L mOs m/kg (285-295) Calcium 9.3 mg/dL mg/dL (8.5-10.5) Total Bilirubin 1.2 mg/dL mg/dL (0.15-1.2) AST 26 U/L U/L (0-32) ALT 17 U/L U/L (0-33) Alkaline Phosphata se 237 IU/L H IU/L (35-105) Ammonia Creatine Kinase 103 U/L U/L (26-192) Troponin T Baselin e 16 ng/L H ng/L (0-10) Troponin T [address] [place] Troponin T Troponin T Hi Sens 6Hr Troponin T Hi Sens 6Hr Delta C-Reactive Protein 46.7 mg/L H mg/L (0.0-4.9) Total Protein 7.1 g/dL g/dL (6.6-8.7) Albumin 3.6 g/dL g/dL (3.5-5.2) Globulin 3.5 g/dL g/dL (1.3-4.6) Vitamin B12 TSH Urine Color Urine Appearance Urine pH Ur Specific Gravit y Urine Protein Urine Glucose (UA) Urine Ketones Urine Blood Urine Nitrate Urine Bilirubin Urine Urobilinogen Ur Leukocyte Rema ase Urine Opiates Scre en Ur Barbiturates Sc reen Ur Phencyclidine S crn Ur Amphetamines Sc reen U Benzodiazepines Scrn Urine Cocaine Scre en U Marijuana (THC) Screen Ethyl Alcohol SARS-CoV-2 Ag (Rap id) 02/25/21 02/25/21 02/25/21 20:03 22:24 22:24 WBC RBC Hgb Hct MCV MCH MCHC RDW Plt Count MPV Neut % (Auto) Lymph % (Auto) Braxton % (Auto) Eos % (Auto) Baso % (Auto) Neut # (Auto) Lymph # (Auto) Braxton # (Auto) Eos # (Auto) Baso # (Auto) Nucleated RBC % (a uto) Nucleated RBCs # PT INR Sodium Potassium Chloride Carbon Dioxide Anion Gap BUN Creatinine GFR Calculation Glucose POC Glucose Calculated Osmolal ity Calcium Total Bilirubin AST ALT Alkaline Phosphata se Ammonia Creatine Kinase Troponin T Baselin e Troponin T 120 [address] [place] 12.70 ng/L H ng/L (0-10) Delta Troponin T -3.30 ABS# L ABS# (0-10) Troponin T Hi Sens 6Hr Troponin T Hi Sens 6Hr Delta C-Reactive Protein Total Protein Albumin Globulin Vitamin B12 TSH Urine Color Yellow (Yellow) Urine Appearance Clear (CLEAR) Urine pH 5 (5-7) Ur Specific Gravit y 1.005 (1.005-1.030) Urine Protein Neg (Negative) Urine Glucose (UA) Norm (Normal) Urine Ketones Negative (Negative) Urine Blood Neg (Negative) Urine Nitrate Negative (Negative) Urine Bilirubin Neg (Negative) Urine Urobilinogen Norm mg/dL mg/dL (Negative) Ur Leukocyte Rema ase Negative (Negative) Urine Opiates Scre en Positive ng/mL H ng/mL (Negative) Ur Barbiturates Sc reen Negative ng/mL ng /mL (Negative) Ur Phencyclidine S crn Negative ng/mL ng /mL (Negative) Ur Amphetamines Sc reen Negative ng/mL ng /mL (Negative) U Benzodiazepines Scrn Negative ng/mL ng /mL (Negative) Urine Cocaine Scre en Negative ng/mL ng /mL (Negative) U Marijuana (THC) Screen Negative ng/mL ng /mL (Negative) Ethyl Alcohol SARS-CoV-2 Ag (Rap id) 02/25/21 02/25/21 02/26/21 23:46 23:46 00:15 WBC RBC Hgb Hct MCV MCH MCHC RDW Plt Count MPV Neut % (Auto) Lymph % (Auto) Braxton % (Auto) Eos % (Auto) Baso % (Auto) Neut # (Auto) Lymph # (Auto) Braxton # (Auto) Eos # (Auto) Baso # (Auto) Nucleated RBC % (a uto) Nucleated RBCs # PT INR Sodium Potassium Chloride Carbon Dioxide Anion Gap BUN Creatinine GFR Calculation Glucose POC Glucose Calculated Osmolal ity Calcium Total Bilirubin AST ALT Alkaline Phosphata se Ammonia Creatine Kinase Troponin T Baselin e Troponin T [address] [place] Troponin T Troponin T Hi Sens 6Hr 15.77 ng/L H ng/L (0-10) Troponin T Hi Sens 6Hr Delta -0.23 ng/L L ng/L (0-12) C-Reactive Protein Total Protein Albumin Globulin Vitamin B12 TSH 2.12 uIU/mL uIU/m L (0.27-4.20) Urine Color Urine Appearance Urine pH Ur Specific Gravit y Urine Protein Urine Glucose (UA) Urine Ketones Urine Blood Urine Nitrate Urine Bilirubin Urine Urobilinogen Ur Leukocyte Rema ase Urine Opiates Scre en Ur Barbiturates Sc reen Ur Phencyclidine S crn Ur Amphetamines Sc reen U Benzodiazepines Scrn Urine Cocaine Scre en U Marijuana (THC) Screen Ethyl Alcohol < 10 mg/dL mg/dL (0-10) SARS-CoV-2 Ag (Rap id) Positive H (Negative) 02/26/21 02/26/21 02/26/21 06:57 07:45 09:10 WBC 3.2 10^3/uL L 10^ 3/uL (4.0-10.0) RBC 3.14 10^6/uL L 10 ^6/uL (4.1-5.3) Hgb 10.2 g/dL L g/dL (11.5-15.3) Hct 31.0 % L % (37.0-47.0) MCV 98.7 fl fl (81-99) MCH 32.5 pg pg (28.0-34.0) MCHC 32.9 g/dL g/dL (30.0-36.0) RDW 16.1 % H % (12.1-15.1) Plt Count 118 10^3/cmm L 10 ^3/cmm (130-400) MPV 9.1 fL fL (7.4-10.4) Neut % (Auto) 78.3 % % Lymph % (Auto) 7.1 % % Braxton % (Auto) 14.0 % % Eos % (Auto) 0.0 % % Baso % (Auto) 0.3 % % Neut # (Auto) 2.52 10^3/uL 10^3 /uL (1.8-7.7) Lymph # (Auto) 0.2 10^3/uL L 10^ 3/uL (0.8-4.8) Braxton # (Auto) 0.5 10^3/uL 10^3/ uL (0.2-0.9) Eos # (Auto) 0.0 10^3/uL 10^3/ uL (0.0-0.8) Baso # (Auto) 0.0 10^3/uL 10^3/ uL (0.0-0.1) Nucleated RBC % (a uto) 0 % % Nucleated RBCs # 0.0 /100WBC /100W BC PT INR Sodium Potassium Chloride Carbon Dioxide Anion Gap BUN Creatinine GFR Calculation Glucose POC Glucose 86 mg/dL mg/dL 102 mg/dL mg/dL (70-110) (70-110) Calculated Osmolal ity Calcium Total Bilirubin AST ALT Alkaline Phosphata se Ammonia Creatine Kinase Troponin T Baselin e Troponin T 120 [address] [place] Troponin T Troponin T Hi Sens 6Hr Troponin T Hi Sens 6Hr Delta C-Reactive Protein Total Protein Albumin Globulin Vitamin B12 TSH Urine Color Urine Appearance Urine pH Ur Specific Gravit y Urine Protein Urine Glucose (UA) Urine Ketones Urine Blood Urine Nitrate Urine Bilirubin Urine Urobilinogen Ur Leukocyte Rema ase Urine Opiates Scre en Ur Barbiturates Sc reen Ur Phencyclidine S crn Ur Amphetamines Sc reen U Benzodiazepines Scrn Urine Cocaine Scre en U Marijuana (THC) Screen Ethyl Alcohol SARS-CoV-2 Ag (Rap id) 02/26/21 02/26/21 02/26/21 09:10 09:10 09:10 WBC RBC Hgb Hct MCV MCH MCHC RDW Plt Count MPV Neut % (Auto) Lymph % (Auto) Braxton % (Auto) Eos % (Auto) Baso % (Auto) Neut # (Auto) Lymph # (Auto) Braxton # (Auto) Eos # (Auto) Baso # (Auto) Nucleated RBC % (a uto) Nucleated RBCs # PT 14.70 SECONDS SEC ONDS (12.1-14.9) INR 1.12 (0.8-1.2) Sodium 134 mmol/L L mmol /L (136-145) Potassium 3.4 mmol/L L mmol /L (3.5-5.1) Chloride 95 mmol/L L mmol/ L (98-107) Carbon Dioxide 26 mmol/L mmol/L (22-29) Anion Gap 16.4 (5-19) BUN 22 mg/dL mg/dL (8-23) Creatinine 0.7 mg/dL mg/dL (0.5-0.9) GFR Calculation Not Reportable Glucose 100 mg/dL mg/dL (65-115) POC Glucose Calculated Osmolal ity 281 mOsm/kg L mOs m/kg (285-295) Calcium 8.6 mg/dL mg/dL (8.5-10.5) Total Bilirubin 1.2 mg/dL mg/dL (0.15-1.2) AST 30 U/L U/L (0-32) ALT 17 U/L U/L (0-33) Alkaline Phosphata se 191 IU/L H IU/L (35-105) Ammonia 28 umol/L umol/L (11-51) Creatine Kinase Troponin T Baselin e Troponin T [address] [place] Troponin T Troponin T Hi Sens 6Hr Troponin T Hi Sens 6Hr Delta C-Reactive Protein Total Protein 6.1 g/dL L g/dL (6.6-8.7) Albumin 3.0 g/dL L g/dL (3.5-5.2) Globulin 3.1 g/dL g/dL (1.3-4.6) Vitamin B12 913 pg/mL pg/mL (232-1245) TSH Urine Color Urine Appearance Urine pH Ur Specific Gravit y Urine Protein Urine Glucose (UA) Urine Ketones Urine Blood Urine Nitrate Urine Bilirubin Urine Urobilinogen Ur Leukocyte Rema ase Urine Opiates Scre en Ur Barbiturates Sc reen Ur Phencyclidine S crn Ur Amphetamines Sc reen U Benzodiazepines Scrn Urine Cocaine Scre en U Marijuana (THC) Screen Ethyl Alcohol SARS-CoV-2 Ag (Rap id) Imaging Data^: CXR: My impression: nothing acute, except mild cardiomegaly Radiologist's impression: PROCEDURE INFORMATION: Exam: XR Chest Exam date and time: 02/26/2021 7:24 AM Age: 70 years old Clinical indication: Patient HX: PT unable to give history; Additional info: Cough; Covid positive TECHNIQUE: Imaging protocol: XR of the chest. Views: 1 view. COMPARISON: CR XR chest 1V portable [id number] 09/16/2020 4:01 PM FINDINGS: Lungs: Minor interstitial stranding or summation of vasculature retrocardiac left lower lung. Pleural spaces: Unremarkable. No large volume pleural effusion. No pneumothorax. Heart/Mediastinum: Cardiomegaly. Vasculature: Tortuous calcified thoracic aorta. Diaphragm: Left hemidiaphragm is elevated. Bones/joints: Unremarkable. Soft tissues: Soft tissue blunting at the left costophrenic angle. XR/XR chest 1V portable [id number] IMPRESSION: 1. Minor left lower lung retrocardiac stranding versus summation of vasculature. 2. Elevation left hemidiaphragm. 3. Cardiomegaly. Dictated By:Samantha Avila DOSigned By:Samantha Avila DOSigned Date/Time:02/26/[address] Head: Radiologist's impression: Ordering Provider/Ordering MD: Bhargav Alvarado MD Date of Service: 02/26/21 Procedure(s): CT head wo con* [id number] Accession Number(s): [id number] Report Number: [id number] WS: [id number] CT HEAD NONCONTRAST HISTORY: confusion TECHNIQUE: Contiguous axial imaging performed through the brain in 2.5 mm imaging. Bone and soft tissue windows. Sagittal and coronal reformats reviewed. All CT scans at [facility] use at least one of these dose optimization techniques: automated exposure control; mA and/or kV adjustment per patient size (includes targeted exams where dose is matched to clinical indication); or iterative reconstruction. DLP: 1747.23 mGy.cm COMPARISON: 05/15/2020 No acute intracranial hemorrhage, midline shift or mass effect. Mild atrophy and mild chronic microvascular ischemic disease. No prior infarct. The posterior fossa is completely obscured by artifact from patient's body habitus. Ventricles: Normal size with no hydrocephalus. Paranasal sinuses: As visualized are clear. Mastoid air cells: Well pneumatized. Calvarium and scalp: Skull is intact with no soft tissue edema or swelling. CT/CT head wo con* [id number] IMPRESSION: 1. No acute intracranial hemorrhage or edema. 2. Nonvisualization of posterior fossa due to patient's body habitus. 3. Mild atrophy and chronic microvascular ischemic changes in the supratentorial white matter. Dictated By:Sary Ochoa DOSigned By:Sary Ochoa DOSigned Date/Time:02/26/21 1134 EKG Data^: EKG 1: Attestation: I personally reviewed and interpreted this EKG as follows: EKG interpretation date: 02/26/21 EKG interpretation time: 06:06 Interpretation: sinus tachycardia with hr of 105, occas. pvcs, L axis, L ant fascicular block. normal pr interval, normal st seg. normal t waves. Discharge Plan Discharge Patient Disposition: Placed in Observation Clinical Impression: Suicidal ideation, COVID-19 virus detected, Hypoglycemia Back pain Qualifiers: Back pain location: low back pain Chronicity: chronic Back pain laterality: bilateral Sciatica presence: with sciatica Sciatica laterality: sciatica of right side Qualified Code(s): M54.41 - Lumbago with sciatica, right side Major depressive disorder, recurrent episode, severe Qualifiers: Psychotic features: without psychotic features Qualified Code(s): F33.2 - Major depressive disorder, recurrent severe without psychotic features Alzheimer's dementia with behavioral disturbance Qualifiers: Alzheimer's disease onset: unspecified onset Qualified Code(s): G30.9 - Alzheimer's disease, unspecified Discharge Diet: Advance as tolerated and Resume prior tube feeds Coding Level of Care Code ED Anesthesiology Fellow for Chg Fwd Exam Comprehensive
[2021-02-26 06:59] LABS: Glucose Point of Care 86 mg/dL (70-110)
--- NOTE | 2021-02-26 07:24 | XRR_ITS ---
PROCEDURE INFORMATION: Exam: XR Chest Exam date and time: 02/26/2021 7:24 AM Age: 70 years old Clinical indication: Patient HX: PT unable to give history; Additional info: Cough; Covid positive TECHNIQUE: Imaging protocol: XR of the chest. Views: 1 view. COMPARISON: CR XR chest 1V portable [id number] 09/16/2020 4:01 PM FINDINGS: Lungs: Minor interstitial stranding or summation of vasculature retrocardiac left lower lung. Pleural spaces: Unremarkable. No large volume pleural effusion. No pneumothorax. Heart/Mediastinum: Cardiomegaly. Vasculature: Tortuous calcified thoracic aorta. Diaphragm: Left hemidiaphragm is elevated. Bones/joints: Unremarkable. Soft tissues: Soft tissue blunting at the left costophrenic angle. XR/XR chest 1V portable [id number] IMPRESSION: 1. Minor left lower lung retrocardiac stranding versus summation of vasculature. 2. Elevation left hemidiaphragm. 3. Cardiomegaly.
--- NOTE | 2021-02-26 07:30 | PC.NURSE ---
PT HAD COMPLETE BED CHANGE PERFORMED FOR INCONTINENCE OF URINE.
--- NOTE | 2021-02-26 07:40 | PC.NURSE ---
PT IS PLACED ON CONTINUOUS SPO2, NIBP, AND CM.
[2021-02-26 07:48] VITALS: BP 126/90; PULSE 98; RESP 15; O2SAT 98
[2021-02-26 07:50] VITALS: RESP 15; O2SAT 96
[2021-02-26] MEDS: HYDROmorphone 1 mg/mL INJ 1 mL 0.5 MG IVP (07:50)
--- NOTE | 2021-02-26 08:02 | PC.NURSE ---
PT REPORTS THAT SHE IS HAVING A REACTION TO DILAUDID. PT IS IN NAD. PT CO OF FEELING LIKE HER BREATHING IS HEAVY. PT DENIES ANY TONGUE SWELLING, THROAT SWELLING, OR LIPS SWELLING. INFORMED DR. MCGRATH VERBALIZED UNDERSTANDING NO FURTHER ORDERS
--- NOTE | 2021-02-26 08:10 | PC.NURSE ---
DR. NEIL AT BEDSIDE WITH PT.
--- NOTE | 2021-02-26 08:13 | PC.NURSE ---
[facility] REQUESTED TO BE CALLED BY PSYCHIATRIC MENTAL HEALTH NURSE AT OFFICE [phone] OR PERSONAL CELL PHONE OF [phone]
[2021-02-26 08:23] LABS: Glucose Point of Care 102 mg/dL (70-110)
--- NOTE | 2021-02-26 08:29 | PC.NURSE ---
UPON ENTERING ROOM PT IS RESTING QUEITLY WITH EYES CLOSED ON LEFT SIDE IN BED. PT IS IN NAD.
--- NOTE | 2021-02-26 09:04 | CT_ITS ---
WS: [id number] CT HEAD NONCONTRAST HISTORY: confusion TECHNIQUE: Contiguous axial imaging performed through the brain in 2.5 mm imaging. Bone and soft tiss ue windows. Sagittal and coronal reformats reviewed. All CT scans at [facility] use at least one of these dose optimization techniques: automated exposure control; mA and/or kV adjustment per pa tient size (includes targeted exams where dose is matched to clinical indication); or iterative recon struction. DLP: 1747.23 mGy.cm COMPARISON: 05/15/2020 No acute intracranial hemorrhage, midline shift or mass effect. Mild atrophy and mild chronic microvascular ischemic disease. No prior infarct. The posterior fossa i s completely obscured by artifact from patient's body habitus. Ventricles: Normal size with no hydrocephalus. Paranasal sinuses: As visualized are clear. Mastoid air cells: Well pneumatized. Calvarium and scalp: Skull is intact with no soft tissue edema or swelling. CT/CT head wo con* [id number] IMPRESSION: 1. No acute intracranial hemorrhage or edema. 2. Nonvisualization of posterior fossa due to patient's body habitus. 3. Mild atrophy and chronic microvascular ischemic changes in the supratentori al white matter.
--- NOTE | 2021-02-26 09:05 | P.HP_ITS ---
Providers/Chief Complaint Primary Care Provider: Rubi Saenz DO Chief Complaint: right arm pain History of Present Illness Yesika Sanchez is a 70 year old female who for my understanding came into the emergency department with complaints of back pain. She was also reportedly suicidal, and feeling very depressed. When I visited with her she seemed encephalopathic, difficulty with remembering. It was difficult for me to obtain an adequate history and physical. I did call her contact, who is a neighbor who helps care for her. He reports at least for the last several days to week she has been yelling frequently, and confused. She has some underlying dementia. She was seen in the hospital in approximately June 2020 and diagnosis of dementia was confirmed at that time but she was at that time capable of making her own decisions. Initially, it was anticipated that she would be transferred to geriatric psychiatry. She has been having some intractable back pain as well requiring intermittent doses of IV medication, and is also found to be COVID- positive. This is given some difficulty in transfer. Patient cannot tell me when her symptom onset was. Review of Systems General: Reports: ROS unobtainable due to mental status (Confused, unable to recount review of systems) Medications/Allergies Home Medications Medication Instructions Recorded Confirmed Last Taken Type insulin syr/ndl U100 half juanito 0.3 #100 ea 04/04/20 01/28/21 Unknown Rx mL 30 gauge x 1/2 blood sugar diagnostic #100 ea 05/09/20 01/28/21 Unknown Rx lancets #100 ea 05/09/20 01/28/21 Unknown Rx lancets #200 ea 05/09/20 01/28/21 Unknown Rx Lift chair #1 ea 05/29/20 01/28/21 Unknown Rx metoprolol tartrate 25 mg tablet 25 mg PO BID #60 tab 06/16/20 01/28/21 09/16/20 Rx pantoprazole 40 mg tablet,delayed 40 mg PO BID #60 tab 06/16/20 01/28/21 09/16/20 Rx release polyethylene glycol 3350 17 gram 17 g PO DAILY PRN #100 ea 06/16/20 01/28/21 Unknown Rx oral powder packet potassium chloride 20 mEq 40 meq PO BID #60 tab 06/16/20 01/28/21 09/16/20 Rx tablet,extended release sucralfate 1 gram tablet 1 g PO QID #120 tab 06/16/20 01/28/21 09/16/20 Rx allopurinol 300 mg PO BID 06/26/20 01/28/21 09/16/20 History atorvastatin 40 mg PO DAILY 06/26/20 01/28/21 09/16/20 History Diabetic Shoes #1 ea 08/06/20 01/28/21 Unknown Rx cyclobenzaprine 10 mg tablet 10 mg PO TID #90 tab 08/19/20 01/28/21 Unknown Rx insulin aspart U-100 100 unit/mL See Rx Instructions .ROUTE 08/19/20 01/28/21 09/16/20 Rx subcutaneous solution .COMPLEX #30 ml insulin detemir U-100 100 unit/mL 40 unit SUBCUT BID #10 ml 08/19/20 01/28/21 09/16/20 Rx subcutaneous solution furosemide [Lasix] 40 mg PO DAILY 09/16/20 01/28/21 09/16/20 History liraglutide [Victoza 3-Gunner] 1.2 mg SUBCUT DAILY 09/16/20 01/28/21 09/16/20 History mupirocin See Rx Instructions .ROUTE .COMPLEX 09/16/20 01/28/21 09/16/20 History nitroglycerin 0.4 mg SUBLINGUAL Q5M PRN 09/16/20 01/28/21 09/15/20 History oxycodone 20 mg PO TID PRN 09/16/20 01/28/21 09/16/20 History ibuprofen 800 mg tablet 800 mg PO Q8H PRN #270 tab 11/03/20 01/28/21 Unknown Rx diazepam 5 mg tablet 5 mg PO ONCE PRN #2 tab 01/06/21 01/28/21 Unknown Rx meclizine 25 mg tablet See Rx Instructions .ROUTE 01/15/21 01/28/21 Unknown Rx .COMPLEX #60 tablet tamsulosin [Flomax] 0.4 mg PO QPM #7 cap 02/22/21 Unknown Rx Allergies Allergy/AdvReac Type Severity Reaction Status Date / Time cephalexin [From Keflex] Allergy Severe ALGY-Rash Verified 01/28/21 14:19 bupropion [From Wellbutrin] Allergy Unknown Unknown Verified 01/28/21 14:19 ciprofloxacin Allergy Unknown Unknown Verified 01/28/21 14:19 fluoxetine [From Prozac] Allergy Unknown Unknown Verified 01/28/21 14:19 gabapentin Allergy Unknown Unknown Verified 01/28/21 14:19 sulindac [From Clinoril] Allergy Unknown unkown Verified 01/28/21 14:19 iron Allergy ADR-Nausea Verified 01/28/21 14:19 PFSH Acute PFSH: Medical History Anxiety ASHD (arteriosclerotic heart disease) Back pain Cellulitis of right lower extremity CHF (congestive heart failure) CKD (chronic kidney disease) Coronary artery disease Cough DDD (degenerative disc disease) Decreased hearing of both ears Depression Diabetes Diabetic polyneuropathy Duodenal ulcer Dyslipidemia Edema History of GI bleed Hypertension Incarcerated incisional hernia Joint pain Left hamstring muscle strain Morbid obesity Morbilliform rash Onychomycosis PUD (peptic ulcer disease) Recurrent UTI Renal calculus Right leg pain Urinary tract infection Vertigo Vitamin B deficiency Vitamin D deficiency Wound of right lower extremity Surgical History H/O esophagogastroduodenoscopy (~06/05/19) H/O hernia repair History of coronary artery stent placement Cardiac cath on 12/13/2016 with stent placement to LAD Hx of section 3 Hx of cholecystectomy Hx of tonsillectomy S/P appendectomy S/P plastic surgery 2019, panniculectomy Family History Mother CAD (coronary artery disease) Other Hypertension Social History Quit status (tobacco): has quit using tobacco Former quit date comment: 2.5 PPD x 40 yrs Alcohol intake: unknown Female Reproductive History: Date of last menstrual period: 06/05/19 Vitals/I&O/Wt Last Vital Signs Temp 98.2 F 02/25/21 19:29 Pulse 98 02/26/21 07:48 Resp 15 02/26/21 07:50 BP 126/90 02/26/21 07:48 Pulse Ox 96 02/26/21 07:50 Physical Exam Narrative: EXAM NARRATIVE: General exam is a confused female, who goes from subject to subject. When asked the date she just does not reply. HEENT: He was equally round. Oropharynx clear. Neck is supple obese Cardiovascular regular rate and rhythm, no murmur Lungs clear but breath sounds distant Abdomen is soft obese nontender. Extremities no cyanosis clubbing. Trace edema present bilaterally. Some excoriations noted on the shins. Cap refill brisk. skin see finding above Neuro no obvious focal deficits. Confused. Data : 02/26/21 09:10 02/26/21 09:10 Other data: Rapid COVID positive INR is normal LFTs normal with exception of alk phos of 191 Ammonia 28 B12 normal Recent TSH normal Albumin 3.0 Urinalysis checked yesterday negative Urine drug screen positive for opiates Head CT no acute findings, microvascular changes Chest x-ray No obvious infiltrate, left hemidiaphragm elevation, cardiomegaly, some stranding left minor fissure Right humerus, hip and pelvis, lumbar spine CT no fracture. Degenerative changes noted in the spine. Abdominal pelvis CT demonstrated cirrhosis, splenomegaly, splenorenal and gastroesophageal varices, renal cysts, left adrenal mass, stable EKG demonstrates sinus tachycardia, left axis deviation, nonspecific ST-T wave changes. 1 PAC is noted. A&P Assessment and plan (1) Acute encephalopathy: Unknown etiology. Certainly this could be infected some by medication at home. She is on multiple medications which could cause increased confusion Ammonia has been checked and normal Psychiatric consultation appreciated She potentially could be having some withdrawal as well from her chronic narcotics or muscle relaxants. We will restart at a lower dose. Status: Acute (2) Back pain: From my understanding she has chronic back pain. She has been getting some morphine, and Dilaudid in the emergency department. Restart her oxycodone at lower dose, muscle relaxant at as needed dose and monitor closely. Status: Acute (3) COVID-19 virus detected: She has tested positive for COVID-19. From her history, and her contact with a neighbor I have no idea when she had exposure, or if she is even having symptoms from this. At this point I have no choice other than to just observe. If she becomes more cognizant and we can determine exposure time, symptom time she may be a candidate for treatment. At this point she is not requiring oxygen. I could not gather if she is vaccinated or not. Status: Acute (4) Suicidal ideation: Psychiatry does not believe she is suicidal at this time A sitter will be continued, secondary to her encephalopathy, concern for wondering as well as falling. It appears psychiatry will be following up with her further to his ascertain risk. Alcohol level was less than 10. It does not appear a salicylate or acetaminophen level was done. We will check that on blood in lab. Status: Acute (5) Renal colic on right side: Recently had a renal stone with some evidence of mild obstruction. This is not visualized on current scan and urine demonstrates no evidence of infection Status: Acute (6) WOLFE (nonalcoholic steatohepatitis): Evidence of esophageal and gastric varices are noted on CT scan. Ammonia level is normal I do not think there is any evidence for hepatic encephalopathy currently. Status: Acute (7) Alzheimer's dementia with behavioral disturbance: Patient has longstanding history of dementia, which could certainly be worsened with delirium with her current illness. Appreciate nephrology consultation, and will continue to follow closely. Status: Acute Qualifiers: Alzheimer's disease onset: unspecified onset Qualified Code(s): G30.9 - Alzheimer's disease, unspecified; F02.81 - Dementia in other diseases classified elsewhere with behavioral disturbance Additional A&P Information Full code Lovenox for DVT prophylaxis Attestations Medical Necessity Statement*: Observation currently, until further delineation of her mental status can be obtained. She will require less than 2 midnight stay. Time Spent in Patient Care: Greater than 35 minutes Coding Level of Care Code Acute [place] [facility] Fwd Diagnoses Acute encephalopathy G93.40 Back pain M54.9 COVID-19 virus detected U07.1 Suicidal ideation R45.851 Renal colic on right side N23 WOLFE (nonalcoholic steatohepatitis) K75.81 Alzheimer's dementia with behavioral disturbance G30.9; F02.81 Alzheimer's disease onset: unspecified onset
[2021-02-26 09:20] LABS: Basophils % 0.3 %; Hemoglobin 10.2 g/dL (11.5-15.3); Lymphocytes # 0.2 10^3/uL (0.8-4.8); Lymphocytes % 7.1 %; Mean Corpuscular HGB Conc 32.9 g/dL (30.0-36.0); Mean Corpuscular Hemoglobin 32.5 pg (28.0-34.0); Mean Corpuscular Volume 98.7 fl (81-99); Mean Platelet Volume 9.1 fL (7.4-10.4); Monocytes # 0.5 10^3/uL (0.2-0.9); Neutrophils # 2.52 10^3/uL (1.8-7.7); Neutrophils % 78.3 %; Nucleated Red Blood Cells % 0 %; Platelet Count 118 10^3/cmm (130-400); Red Blood Count 3.14 10^6/uL (4.1-5.3); Red Cell Distribution Width 16.1 % (12.1-15.1); White Blood Count 3.2 10^3/uL (4.0-10.0)
[2021-02-26 09:31] LABS: INR 1.12 (0.8-1.2)
[2021-02-26 09:38] LABS: Ammonia 28 umol/L (11-51)
[2021-02-26 09:40] LABS: Alanine Aminotransferase 17 U/L (0-33); Alkaline Phosphatase 191 IU/L (35-105); Anion Gap 16.4 (5-19); Aspartate Amino Transferase 30 U/L (0-32); Blood Urea Nitrogen 22 mg/dL (8-23); Calcium 8.6 mg/dL (8.5-10.5); Carbon Dioxide 26 mmol/L (22-29); Chloride 95 mmol/L (98-107); Globulin 3.1 g/dL (1.3-4.6); Glucose 100 mg/dL (65-115); Osmolality Calculated 281 mOsm/kg (285-295); Potassium 3.4 mmol/L (3.5-5.1); Sodium 134 mmol/L (136-145); Total Bilirubin 1.2 mg/dL (0.15-1.2); Total Protein 6.1 g/dL (6.6-8.7)
[2021-02-26 09:56] LABS: Vitamin B12 913 pg/mL (232-1245)
--- NOTE | 2021-02-26 10:06 | W.PM.PSYCONS ---
Providers/Reason for Consult Consulting Physican/Specialty*: Case Holley MD/Psychiatist Reason for Consult*: Possible psychosis and suicidal ideation. Primary Care Provider: Rubi Saenz, Psych Consult HPI History of Present Illness Yesika Sanchez is a 70 year old female who was in the emergency room primarily for back and leg pain. Evidently someone called Adult Protective Services who evaluated her at home and decided that she needed to be evaluated in the emergency room. She says that she lives in a trailer that is trashy[place] and complains of the manager science of the trailer court harassing her. He yells at her. It is unclear whether this is the case or whether it might be her imagination. There is no other evidence of delusional material or hallucinations. She says that she is somewhat depressed but denies having any suicidal ideation recently. She was somewhat difficult to interview because she says that she is not very coherent because she is so bothered by the pain that she is in. She could not name her medications. She said that if she was more coherent she would be able to make some of them. She said that she does put her own medications is for daily use. I told her that it did not seem like she was capable of taking care of herself. She said that she did feel that she could go home. She needs to be with her dog. That she did not feel that she needed to be in a half-way. She said that even if she did go to a half-way her daughter could go with her. She said that someone is taking care of her dog at this point. She is not sure who that is. PFSH NPU PFSH: Medical History Anxiety ASHD (arteriosclerotic heart disease) Back pain Cellulitis of right lower extremity CHF (congestive heart failure) CKD (chronic kidney disease) Coronary artery disease Cough DDD (degenerative disc disease) Decreased hearing of both ears Depression Diabetes Diabetic polyneuropathy Duodenal ulcer Dyslipidemia Edema History of GI bleed Hypertension Incarcerated incisional hernia Joint pain Left hamstring muscle strain Morbid obesity Morbilliform rash Onychomycosis PUD (peptic ulcer disease) Recurrent UTI Renal calculus Right leg pain Urinary tract infection Vertigo Vitamin B deficiency Vitamin D deficiency Wound of right lower extremity Surgical History H/O esophagogastroduodenoscopy (~06/05/19) H/O hernia repair History of coronary artery stent placement Cardiac cath on 12/13/2016 with stent placement to LAD Hx of section 3 Hx of cholecystectomy Hx of tonsillectomy S/P appendectomy S/P plastic surgery 2019, panniculectomy Family History Mother CAD (coronary artery disease) Other Hypertension Social History Quit status (tobacco): has quit using tobacco Former quit date comment: 2.5 PPD x 40 yrs Alcohol intake: unknown Mental Status Exam MSE Comments: This is a obese 71-year-old female who appears her stated age and is in distress because of her current pain situation she said that she is distracted and not thinking clearly. She is dressed in a hospital gown and frequently rolling back and forth and rubbing her right leg. She is attempted to answer my questions but was quite distracted by her pain. psychomotor activity increased. Speech is at a regular rate and rhythm, normal volume, good articulation, not pressured. Alert, oriented only to self and that she is in the hospital. Attention and concentration distracted because of her pain. Memory is poor. She thought it was late February but did not know the year. She does not know the current information services vice president. She did not know the name of the last president but said that he was crazy. Mood is mildly depressed at times. Affect is dysphoric but mostly because of the pain. Thought process is logical and goal-directed. Thought content: Denies auditory and visual hallucinations. No delusions or paranoia are noted. No current suicidal ideation, and no homicidal ideation. Fund of knowledge is appears to be diminished. Insight and judgment appear to be limited. Impulse control is good as far as I can tell. Vitals/I&O/Wt Last Vital Signs Temp 98.2 F 02/25/21 19:29 Pulse 98 02/26/21 07:48 Resp 15 02/26/21 07:50 BP 126/90 02/26/21 07:48 Pulse Ox 96 02/26/21 07:50 A&P Assessment and plan (1) COVID-19 virus detected: Status: Acute (2) Alzheimer's dementia with behavioral disturbance: Status: Acute Qualifiers: Alzheimer's disease onset: unspecified onset Qualified Code(s): G30.9 - Alzheimer's disease, unspecified; F02.81 - Dementia in other diseases classified elsewhere with behavioral disturbance (3) Depression: Status: Acute Qualifiers: Depression Type: unspecified Qualified Code(s): F32.A - Depression, unspecified Additional A&P Information This is a 70-year-old female with multiple medical problems currently focusing on her back and leg pain. She reports depression to me but no suicidal ideation. She complains about manager science at the [employer] harassing her which sounds unusual enough that it could be delusional however we do not have any evidence of any other delusional material. I do not know of any behavioral disturbance or agitation. She certainly does not seem capable of taking care of herself at home. Her ability to assist in decision making appears to be limited. This evaluation was somewhat limited because she was very distracted by her pain. Hopefully I will be able to get more information from her on a subsequent visit. Attestations NPU Medical Necessity Statement*: See attending physician's notes for medical necessity. Coding Level of Care Code Acute Obstetrics Gynecology Physician for g Fwd Diagnoses COVID-19 virus detected U07.1 Alzheimer's dementia with behavioral disturbance G30.9; F02.81 Alzheimer's disease onset: unspecified onset Depression F32.A Depression Type: unspecified
--- NOTE | 2021-02-26 10:44 | PC.NURSE ---
placed pt on bed tan with instructions to use sitter to let me know when she is done.
--- NOTE | 2021-02-26 12:49 | PC.NURSE ---
WHILE AT DOORWAY PT IS RESTING QUIETLY WITH EYES CLOSED ON LEFT SIDE IN BED.
[2021-02-26 12:50] VITALS: PULSE 97; O2SAT 96
[2021-02-26 13:53] LABS: Acetaminophen < 5.0 ug/mL (10-30); Salicylate < 0.3 mg/dL (3-10)
[2021-02-26] MEDS: potassium chloride ER 20 mEq Tablet 40 MEQ PO (14:29)
--- NOTE | 2021-02-26 16:30 | PC.PHAR ---
PT UNABLE TO CONFIRM MEDICATION-CONTACT FOR PT ALSO UNABLE TO CONFIRM PT MEDS- CONTACTED [facility] TO CONFIRM RECENTLY FILLED SCRIPTS
--- NOTE | 2021-02-26 17:30 | PC.NURSE ---
while at doorway pt is aroused to verbal stimuli. pt is in nad. pt co pain in her hips.
[2021-02-26 18:19] VITALS: RESP 16
[2021-02-26] MEDS: sodium chloride 0.9% 1,000 ML 75 ML IV (18:19)
[2021-02-26] MEDS: oxyCODONE 5 mg IR Tab/Cap PO (18:19)
[2021-02-26] MEDS: pantoprazole DR 40 mg Tablet PO (18:19)
[2021-02-26] MEDS: enoxaparin 40 mg/0.4 mL Syringe SUBCUT (18:20)
[2021-02-26] MEDS: metoprolol tartrate 25 mg Tablet PO ×2 (18:24→22:29)
[2021-02-26 18:29] LABS: Glucose Point of Care 169 mg/dL (70-110)
[2021-02-26] MEDS: insulin lispro 100 unit/1 mL SUBCUT (18:30)
--- NOTE | 2021-02-26 19:15 | PC.NURSE ---
report given to nick fritz assumed care.
[2021-02-26 20:00] VITALS: BP 143/68; PULSE 86; RESP 22; TEMP 37.4; O2SAT 98
[2021-02-26 22:07] VITALS: BMI 36.7
[2021-02-26 22:29] LABS: Glucose Point of Care 121 mg/dL (70-110)
[2021-02-26] MEDS: acetaminophen 325 mg Tablet 650 MG PO (22:29)
[2021-02-26 23:07] VITALS: PULSE 71; O2SAT 94
[2021-02-27] VITALS (7 sets, daily range): BP systolic 111–142; BP diastolic 62–90; PULSE 69–86; RESP 16–21; TEMP 36.4–36.9; O2SAT 94–97
[2021-02-27 06:48] LABS: Glucose Point of Care 129 mg/dL (70-110)
[2021-02-27 07:02] LABS: Basophils % 0.4 %; Hematocrit 31.3 % (37.0-47.0); Hemoglobin 9.9 g/dL (11.5-15.3); Lymphocytes # 0.5 10^3/uL (0.8-4.8); Lymphocytes % 18.7 %; Mean Corpuscular HGB Conc 31.6 g/dL (30.0-36.0); Mean Corpuscular Hemoglobin 32.7 pg (28.0-34.0); Mean Corpuscular Volume 103.3 fl (81-99); Mean Platelet Volume 9.8 fL (7.4-10.4); Monocytes # 0.7 10^3/uL (0.2-0.9); Monocytes % 26.3 %; Neutrophils # 1.51 10^3/uL (1.8-7.7); Neutrophils % 54.2 %; Nucleated Red Blood Cells % 0 %; Platelet Count 113 10^3/cmm (130-400); Red Blood Count 3.03 10^6/uL (4.1-5.3); Red Cell Distribution Width 16.5 % (12.1-15.1); White Blood Count 2.8 10^3/uL (4.0-10.0)
[2021-02-27 07:20] LABS: Alanine Aminotransferase 15 U/L (0-33); Albumin Level 2.6 g/dL (3.5-5.2); Alkaline Phosphatase 183 IU/L (35-105); Anion Gap 13.8 (5-19); Aspartate Amino Transferase 30 U/L (0-32); Blood Urea Nitrogen 17 mg/dL (8-23); Calcium 8.2 mg/dL (8.5-10.5); Carbon Dioxide 26 mmol/L (22-29); Chloride 100 mmol/L (98-107); Globulin 2.6 g/dL (1.3-4.6); Glucose 120 mg/dL (65-115); Magnesium 1.5 mg/dL (1.7-2.3); Osmolality Calculated 285 mOsm/kg (285-295); Potassium 3.8 mmol/L (3.5-5.1); Sodium 136 mmol/L (136-145); Total Bilirubin 1.1 mg/dL (0.15-1.2); Total Protein 5.2 g/dL (6.6-8.7)
--- NOTE | 2021-02-27 08:47 | PM.PN ---
Subjective Subjective: Interval history: Yesika is alert and conversive today. She appears less confused. She believes she has had some congestion in her nose and body aches about 3 days. Medications: Reviewed: Yes Vitals/I&O/Wt Last Vital Signs Temp 98.4 F 02/27/21 08:00 Pulse 84 02/27/21 08:00 Resp 16 02/27/21 08:00 BP 111/66 02/27/21 08:00 Pulse Ox 94 02/27/21 08:00 02/26/21 02/27/21 02/27/21 22:59 06:59 14:59 Output Total 200 / 200 Balance -200 / -200 Weight last 48 hrs Weight 112.945 kg Physical Exam Narrative: EXAM NARRATIVE: General exam no distress, conversant, confusion evident. She initially thought the year was 1949. She was reoriented. Neck supple Cardiovascular regular rate and rhythm Lungs clear Abdomen is soft, obese Extremities no cyanosis clubbing or edema Data : 02/27/21 06:13 02/27/21 06:13 A&P Assessment and plan (1) Acute encephalopathy: Unknown etiology. Certainly this could be infected some by medication at home. She is on multiple medications which could cause increased confusion Ammonia has been checked and normal Psychiatric consultation appreciated She potentially could be having some withdrawal as well from her chronic narcotics or muscle relaxants. These were restarted, lower dose. She appears to be significantly improved today, and may be near her baseline with mild to moderate dementia. Psychiatry will evaluate today, and follow-up to determine if any other psychiatric needs are present. We will also need to see if she has decisional capacity. Status: Acute (2) Back pain: From my understanding she has chronic back pain. She has been getting some morphine, and Dilaudid in the emergency department. Her oxycodone was restarted at lower dose, muscle relaxant at as needed dose and monitor closely. Status: Acute (3) COVID-19 virus detected: She has tested positive for COVID-19. From her history, and her contact with a neighbor I have no idea when she had exposure, or if she is even having symptoms from this. She has become cognizant enough to relay her symptoms have perhaps been going on 3 days. She is high risk for developing severe COVID and reports she is not vaccinated. At this point we will proceed with monoclonal antibody. Note that she has no evidence of COVID requiring oxygen therapy and was not admitted for COVID currently. Status: Acute (4) Suicidal ideation: Psychiatry does not believe she is suicidal at this time It appears psychiatry will be following up with her further to his ascertain risk. Alcohol level was less than 10. Salicylate and Tylenol level not elevated Status: Acute (5) Renal colic on right side: Recently had a renal stone with some evidence of mild obstruction. This is not visualized on current scan and urine demonstrates no evidence of infection Status: Acute (6) WOLFE (nonalcoholic steatohepatitis): Evidence of esophageal and gastric varices are noted on CT scan. Ammonia level is normal I do not think there is any evidence for hepatic encephalopathy currently. Status: Acute (7) Alzheimer's dementia with behavioral disturbance: Patient has longstanding history of dementia, which could certainly be worsened with delirium with her current illness. Appreciate nephrology consultation, and will continue to follow closely. Status: Acute Qualifiers: Alzheimer's disease onset: unspecified onset Qualified Code(s): G30.9 - Alzheimer's disease, unspecified; F02.81 - Dementia in other diseases classified elsewhere with behavioral disturbance Additional A&P Information Full code Lovenox for DVT prophylaxis Attestations Medical Necessity Statement*: Will reevaluate with psychiatry regarding her decisional capacity. After that we will determine if she would allow nursing facility placement, or other arrangements need to be made. If she has decisional capacity, and would like discharge home this may have to be arranged although would not be ideal considering underlying dementia. Coding Level of Care Code Acute Placement Director for [facility] Diagnoses Acute encephalopathy G93.40 Back pain M54.9 COVID-19 virus detected U07.1 Suicidal ideation R45.851 Renal colic on right side N23 WOLFE (nonalcoholic steatohepatitis) K75.81 Alzheimer's dementia with behavioral disturbance G30.9; F02.81 Alzheimer's disease onset: unspecified onset
[2021-02-27] MEDS: pantoprazole DR 40 mg Tablet PO ×2 (10:31→18:19)
[2021-02-27] MEDS: metoprolol tartrate 25 mg Tablet PO ×2 (10:31→20:33)
[2021-02-27] MEDS: magnesium sulfate premix 2 GM/50 ML PIGGYBACK IV (11:35)
[2021-02-27] MEDS: insulin lispro 100 unit/1 mL SUBCUT ×3 (13:52→21:37)
[2021-02-27] MEDS: sodium chloride 0.9% 1,000 ML 75 ML IV (13:54)
--- NOTE | 2021-02-27 14:52 | PC.CHAP ---
Pastoral Care Encounter/Spiritual Assessment Type of Contact [] Declined emergency veterinary assistant visit [] Patient/Family/Request visit [] Outpatient visit [] Follow-up visit [] Physician referral [] Code/Alert [] Routine visit [] Staff referral [] Actively dying [] Patient sleeping [] Family support [] [] Out of room [] Palliative care [] [] Receiving care in room [] Pre-surgical visit [] Trauma [] Long length of stay [] ICU visit [xx] Other: Covid-19 Relational/Emotional Strength [] Patient feels connected with others/family/visitors/staff [] Distress [] Loneliness/isolation [] Abandonment Spirituality of Patient [] Person of Rocio [] Attends Religion of their [place]io [] Believes in Prayer [] Reads Bible or Mosque materials [] There are Spiritual issues to be addressed Quality Analyst Interventions [] Prayer [] Active listening [] Non-anxious presence [] Spiritual/emotional support [] Crisis/trauma care [] Spiritual counseling [] Bereavement support [] Provided bereavement packet [] Provided Bible/devotional materials [] Provided toy/stuffed animal, coloring book to patient or family member [] Provided Communion [] Anointing/[place] [] Salvation [] Completed spiritual assessment [] Other: Impact on Illness or Injury [] Angry [] Fearful [] Anxious [] Often cries [] Exhaustion [] Unable to work [] Unable to attend restorationist [] Unable to walk/stand [] Unable to read [] Unable to drive [] Unable to eat/drink [] Unable to sleep [] Unable to be with family [] Patient intubated [] Other: Summary Time spent with patient
[2021-02-27] MEDS: oxyCODONE 5 mg IR Tab/Cap PO ×2 (15:55→21:37)
[2021-02-27] MEDS: enoxaparin 40 mg/0.4 mL Syringe SUBCUT (18:18)
[2021-02-27 21:15] LABS: Glucose Point of Care 309 mg/dL (70-110)
[2021-02-27] MEDS: insulin glargine 100 units/1 mL 20 UNIT SUBCUT (21:37)
[2021-02-27 23:04] LABS: Glucose Point of Care 284 mg/dL (70-110)
[2021-02-27 23:04] LABS: Glucose Point of Care 310 mg/dL (70-110)
[2021-02-28] VITALS (9 sets, daily range): BP systolic 105–130; BP diastolic 63–73; PULSE 79–165; RESP 16–20; TEMP 36.9–37.4; O2SAT 90–96
[2021-02-28] MEDS: sodium chloride 0.9% 1,000 ML 75 ML IV ×2 (02:10→21:23)
[2021-02-28] MEDS: oxyCODONE 5 mg IR Tab/Cap PO ×3 (05:06→22:20)
[2021-02-28 06:26] LABS: Basophils % 0.3 %; Eosinophils % 0.3 %; Hematocrit 28.7 % (37.0-47.0); Hemoglobin 9.2 g/dL (11.5-15.3); Lymphocytes # 0.8 10^3/uL (0.8-4.8); Lymphocytes % 24.4 %; Mean Corpuscular HGB Conc 32.1 g/dL (30.0-36.0); Mean Corpuscular Hemoglobin 31.9 pg (28.0-34.0); Mean Corpuscular Volume 99.7 fl (81-99); Mean Platelet Volume 9.8 fL (7.4-10.4); Monocytes # 0.5 10^3/uL (0.2-0.9); Monocytes % 15.7 %; Neutrophils # 1.84 10^3/uL (1.8-7.7); Nucleated Red Blood Cells % 0 %; Platelet Count 96 10^3/cmm (130-400); Red Blood Count 2.88 10^6/uL (4.1-5.3); Red Cell Distribution Width 16.1 % (12.1-15.1); White Blood Count 3.1 10^3/uL (4.0-10.0)
[2021-02-28 06:32] LABS: Glucose Point of Care 176 mg/dL (70-110)
[2021-02-28 06:54] LABS: Anion Gap 14.6 (5-19); Blood Urea Nitrogen 12 mg/dL (8-23); Calcium 8.7 mg/dL (8.5-10.5); Carbon Dioxide 23 mmol/L (22-29); Chloride 99 mmol/L (98-107); Glucose 166 mg/dL (65-115); Magnesium 1.4 mg/dL (1.7-2.3); Osmolality Calculated 280 mOsm/kg (285-295); Potassium 3.6 mmol/L (3.5-5.1); Sodium 133 mmol/L (136-145)
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
[2021-02-28] MEDS: metoprolol tartrate 25 mg Tablet PO (08:58)
[2021-02-28] MEDS: insulin lispro 100 unit/1 mL SUBCUT ×4 (08:58→21:35)
[2021-02-28] MEDS: pantoprazole DR 40 mg Tablet PO ×2 (08:59→17:21)
[2021-02-28] MEDS: acetaminophen 325 mg Tablet 650 MG PO ×2 (10:54→21:23)
[2021-02-28] MEDS: magnesium sulfate premix 2 GM/50 ML PIGGYBACK IV (10:58)
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
[2021-02-28] MEDS: risperiDONE 0.25 mg Tablet 0.5 MG PO ×2 (12:02→17:21)
[2021-02-28 12:35] LABS: Glucose Point of Care 290 mg/dL (70-110)
[2021-02-28] MEDS: enoxaparin 40 mg/0.4 mL Syringe SUBCUT (17:18)
[2021-02-28 17:41] LABS: Glucose Point of Care 298 mg/dL (70-110)
[2021-02-28 21:28] LABS: Glucose Point of Care 293 mg/dL (70-110)
[2021-02-28] MEDS: insulin glargine 100 units/1 mL 20 UNIT SUBCUT (21:35)
[2021-03-01] VITALS (11 sets, daily range): BP systolic 96–122; BP diastolic 54–69; PULSE 63–94; RESP 15–21; TEMP 36.7–37; O2SAT 93–96
[2021-03-01] MEDS: acetaminophen 325 mg Tablet 650 MG PO ×2 (02:14→22:08)
[2021-03-01] MEDS: oxyCODONE 5 mg IR Tab/Cap PO ×3 (03:36→21:55)
[2021-03-01] MEDS: ondansetron 2 mg/ML SDV 2 mL 4 MG IVP (03:45)
[2021-03-01 06:27] LABS: Glucose Point of Care 265 mg/dL (70-110)
[2021-03-01] MEDS: insulin lispro 100 unit/1 mL SUBCUT ×4 (09:56→20:54)
[2021-03-01] MEDS: pantoprazole DR 40 mg Tablet PO ×2 (09:57→18:27)
[2021-03-01] MEDS: atorvastatin 40 mg Tablet PO (09:57)
[2021-03-01] MEDS: lisinopril 5 mg Tablet PO (09:57)
[2021-03-01] MEDS: risperiDONE 0.25 mg Tablet 0.5 MG PO ×2 (09:57→18:27)
[2021-03-01] MEDS: sodium chloride 0.9% 1,000 ML 75 ML IV (11:08)
[2021-03-01] MEDS: metoprolol tartrate 25 mg Tablet PO ×2 (11:09→20:54)
[2021-03-01 11:15] LABS: Eosinophils # 0.1 10^3/uL (0.0-0.8); Eosinophils % 4.1 %; Hematocrit 30.8 % (37.0-47.0); Hemoglobin 9.8 g/dL (11.5-15.3); Lymphocytes # 0.7 10^3/uL (0.8-4.8); Lymphocytes % 26.7 %; Mean Corpuscular HGB Conc 31.8 g/dL (30.0-36.0); Mean Corpuscular Hemoglobin 32.6 pg (28.0-34.0); Mean Corpuscular Volume 102.3 fl (81-99); Mean Platelet Volume 9.7 fL (7.4-10.4); Monocytes # 0.3 10^3/uL (0.2-0.9); Monocytes % 11.9 %; Neutrophils # 1.38 10^3/uL (1.8-7.7); Neutrophils % 56.9 %; Nucleated Red Blood Cells % 0 %; Platelet Count 83 10^3/cmm (130-400); Red Blood Count 3.01 10^6/uL (4.1-5.3); White Blood Count 2.4 10^3/uL (4.0-10.0)
[2021-03-01 11:33] LABS: Alanine Aminotransferase 12 U/L (0-33); Albumin Level 2.3 g/dL (3.5-5.2); Alkaline Phosphatase 159 IU/L (35-105); Anion Gap 14.4 (5-19); Aspartate Amino Transferase 19 U/L (0-32); Blood Urea Nitrogen 12 mg/dL (8-23); Calcium 8.6 mg/dL (8.5-10.5); Carbon Dioxide 21 mmol/L (22-29); Chloride 99 mmol/L (98-107); Globulin 2.5 g/dL (1.3-4.6); Glucose 264 mg/dL (65-115); Magnesium 1.6 mg/dL (1.7-2.3); Osmolality Calculated 279 mOsm/kg (285-295); Potassium 4.4 mmol/L (3.5-5.1); Sodium 130 mmol/L (136-145); Total Bilirubin 0.4 mg/dL (0.15-1.2); Total Protein 4.8 g/dL (6.6-8.7)
--- NOTE | 2021-03-01 12:55 | PM.PN ---
Subjective Subjective: Interval history: Yesika reports she is doing well. She is confused, but very conversant today. No shortness of breath. A Khan was put in last night secondary to poor urine output Medications: Reviewed: Yes Vitals/I&O/Wt Last Vital Signs Temp 98.4 F 03/01/21 11:19 Pulse 94 03/01/21 11:19 Resp 15 03/01/21 11:19 BP 122/61 03/01/21 11:19 Pulse Ox 93 03/01/21 11:19 02/28/21 03/01/21 03/01/21 22:59 06:59 14:59 Intake Total 240 / 770 620 / 1390 1480 / 1480 Output Total 1300 / 1300 1000 / 1000 Balance 240 / 770 -680 / 90 480 / 480 Physical Exam Narrative: EXAM NARRATIVE: General exam calm but confused Neck supple Cardiovascular regular rate and rhythm Lungs clear Abdomen is soft, obese Extremities no cyanosis clubbing or edema Urinary Catheter Management^: Khan: Cath Placed During This Visit: yes Reason for Continuing Indwelling Catheter: Acute Urinary Retention or Obstruction Urinary Catheter Date of Insertion: 02/28/21 Urinary Catheter Time of Insertion: 21:00 Data : 03/01/21 10:45 03/01/21 10:45 A&P Assessment and plan (1) Acute encephalopathy: Unknown etiology. Certainly this could be infected some by medication at home. She is on multiple medications which could cause increased confusion Ammonia has been checked and normal Psychiatric consultation appreciated She potentially could be having some withdrawal as well from her chronic narcotics or muscle relaxants. These were restarted, lower dose. She appears to be significantly improved today, and may be near her baseline with mild to moderate dementia. Appreciate psychiatric evaluation. She does not have decisional capacity currently per them. Secondary to her delusions, psychosis Risperdal was initiated. She is tolerating this well. Status: Acute (2) Back pain: From my understanding she has chronic back pain. She has been getting some morphine, and Dilaudid in the emergency department. Her oxycodone was restarted at lower dose, muscle relaxant at as needed dose and monitor closely. Status: Acute (3) COVID-19 virus detected: She has tested positive for COVID-19. From her history, and her contact with a neighbor I have no idea when she had exposure, or if she is even having symptoms from this. She has become cognizant enough to relay her symptoms have perhaps been going on 3 days. She is high risk for developing severe COVID and reports she is not vaccinated. She received monoclonal antibody yesterday.. Note that she has no evidence of COVID requiring oxygen therapy and was not admitted for COVID currently. Status: Acute (4) Suicidal ideation: Psychiatry does not believe she is suicidal at this time. She intermittently still voices this although she is also delusional. Appreciate psychiatric consultation. Alcohol level was less than 10. Salicylate and Tylenol level not elevated Status: Acute (5) Renal colic on right side: Recently had a renal stone with some evidence of mild obstruction. This is not visualized on current scan and urine demonstrates no evidence of infection Status: Acute (6) WOLFE (nonalcoholic steatohepatitis): Evidence of esophageal and gastric varices are noted on CT scan. Ammonia level is normal I do not think there is any evidence for hepatic encephalopathy currently. Status: Acute (7) Alzheimer's dementia with behavioral disturbance: Patient has longstanding history of dementia, which could certainly be worsened with delirium with her current illness. Appreciate nephrology consultation, and will continue to follow closely. Status: Acute Qualifiers: Alzheimer's disease onset: unspecified onset Qualified Code(s): G30.9 - Alzheimer's disease, unspecified; F02.81 - Dementia in other diseases classified elsewhere with behavioral disturbance Additional A&P Information Hypomagnesemia, supplement Mild hyponatremia. Discontinue IV fluids Poor urine output with concern of retention. Continue Khan. Add Flomax. Diabetes mellitus. Increase Lantus slightly. Full code Lovenox for DVT prophylaxis Attestations Medical Necessity Statement*: Needs continued hospitalization for close monitoring of psychiatric illness in this patient with dementia, COVID-positive with mild hyponatremia and need for placement to a safe environment. Coding Level of Care Code Acute Product Development Technician for [facility] Diagnoses Acute encephalopathy G93.40 Back pain M54.9 COVID-19 virus detected U07.1 Suicidal ideation R45.851 Renal colic on right side N23 WOLFE (nonalcoholic steatohepatitis) K75.81 Alzheimer's dementia with behavioral disturbance G30.9; F02.81 Alzheimer's disease onset: unspecified onset
[2021-03-01] MEDS: ipratropium-albuterol 3 mL Neb INHALATION (13:57)
[2021-03-01 18:21] LABS: Glucose Point of Care 301 mg/dL (70-110)
[2021-03-01] MEDS: enoxaparin 40 mg/0.4 mL Syringe SUBCUT (18:28)
--- NOTE | 2021-03-01 19:44 | PC.NURSE ---
Shift report received from Leonarda BEAR.
--- NOTE | 2021-03-01 19:51 | PC.NURSE ---
Shift report received from Leonarda BEAR. Patient awake in bed. Denies pain. No s/s of pain or discomfort. Khan patent draining clear yellow urine. No IV access. Sitter at bedside. No needs voiced at this time.
[2021-03-01 20:28] LABS: Glucose Point of Care 299 mg/dL (70-110)
[2021-03-01] MEDS: tamsulosin 0.4 mg Capsule PO (20:54)
[2021-03-01] MEDS: insulin glargine 100 units/1 mL 30 UNIT SUBCUT (20:55)
[2021-03-01] MEDS: magnesium sulfate premix 2 GM/50 ML PIGGYBACK IV (22:22)
[2021-03-02] VITALS (7 sets, daily range): BP systolic 90–103; BP diastolic 49–60; PULSE 65–72; RESP 17–20; TEMP 36.8–37.2; O2SAT 91–96
[2021-03-02 06:14] LABS: Anion Gap 14.3 (5-19); Blood Urea Nitrogen 14 mg/dL (8-23); Calcium 9.3 mg/dL (8.5-10.5); Carbon Dioxide 23 mmol/L (22-29); Chloride 103 mmol/L (98-107); Glucose 153 mg/dL (65-115); Osmolality Calculated 286 mOsm/kg (285-295); Potassium 4.3 mmol/L (3.5-5.1); Sodium 136 mmol/L (136-145)
[2021-03-02] MEDS: risperiDONE 0.25 mg Tablet 0.5 MG PO (10:34)
[2021-03-02] MEDS: pantoprazole DR 40 mg Tablet PO (10:35)
[2021-03-02] MEDS: atorvastatin 40 mg Tablet PO (10:35)
[2021-03-02] MEDS: insulin lispro 100 unit/1 mL SUBCUT ×3 (10:35→21:52)
[2021-03-02] MEDS: lisinopril 5 mg Tablet PO (10:35)
[2021-03-02] MEDS: metoprolol tartrate 25 mg Tablet PO ×2 (10:35→21:53)
[2021-03-02 12:30] LABS: Glucose Point of Care 261 mg/dL (70-110)
--- NOTE | 2021-03-02 13:06 | PM.PN ---
Subjective Subjective: Interval history: Confused. Thinks she is going to to make some baclava soon. No apparent shortness of breath. Some pain with trying to get up and move around with therapy. Medications: Reviewed: Yes Vitals/I&O/Wt Last Vital Signs Temp 98.4 F 03/02/21 07:37 Pulse 71 03/02/21 07:37 Resp 18 03/02/21 07:37 BP 98/60 03/02/21 07:37 Pulse Ox 93 03/02/21 07:37 03/01/21 03/02/21 03/02/21 22:59 06:59 14:59 Intake Total 240 / 1820 200 / 200 Output Total 650 / 1650 700 / 2350 Balance -410 / 170 -700 / -530 200 / 200 Physical Exam Narrative: EXAM NARRATIVE: General exam calm but confused Neck supple Cardiovascular regular rate and rhythm Lungs clear Abdomen is soft, obese Extremities no cyanosis clubbing or edema Urinary Catheter Management^: Khan: Cath Placed During This Visit: yes Reason for Continuing Indwelling Catheter: Acute Urinary Retention or Obstruction Urinary Catheter Date of Insertion: 02/28/21 Urinary Catheter Time of Insertion: 21:00 Data : 03/01/21 10:45 03/02/21 05:16 A&P Assessment and plan (1) Acute encephalopathy: Unknown etiology. Certainly this could be infected some by medication at home. She is on multiple medications which could cause increased confusion Ammonia has been checked and normal Psychiatric consultation appreciated She potentially could be having some withdrawal as well from her chronic narcotics or muscle relaxants. These were restarted, lower dose. She is conversant but confused. Probably near her baseline. Secondary to delusions, psychosis she was initiated on Risperdal which she is tolerating well. Appreciate psychiatric evaluation. She does not have decisional capacity. Status: Acute (2) Back pain: From my understanding she has chronic back pain. She has been getting some morphine, and Dilaudid in the emergency department. Her oxycodone was restarted at lower dose, muscle relaxant at as needed dose and monitor closely. Status: Acute (3) COVID-19 virus detected: She has tested positive for COVID-19. From her history, and her contact with a neighbor I have no idea when she had exposure, or if she is even having symptoms from this. She has become cognizant enough to relay her symptoms have perhaps been going on 3 days. She is high risk for developing severe COVID and reports she is not vaccinated. She received monoclonal antibody during this hospital stay.. Note that she has no evidence of COVID requiring oxygen therapy and was not admitted for COVID currently. Status: Acute (4) Suicidal ideation: Psychiatry does not believe she is suicidal at this time. She intermittently still voices this although she is also delusional. Appreciate psychiatric consultation. She does not have decisional capacity per them. Alcohol level was less than 10. Salicylate and Tylenol level not elevated Status: Acute (5) Renal colic on right side: Recently had a renal stone with some evidence of mild obstruction. This is not visualized on current scan and urine demonstrates no evidence of infection Status: Inactive (6) WOLFE (nonalcoholic steatohepatitis): Evidence of esophageal and gastric varices are noted on CT scan. Ammonia level is normal I do not think there is any evidence for hepatic encephalopathy currently. Status: Acute (7) Alzheimer's dementia with behavioral disturbance: Patient has longstanding history of dementia, which could certainly be worsened with delirium with her current illness. Appreciate psychiatric consultation, and will continue to follow closely. Status: Acute Qualifiers: Alzheimer's disease onset: unspecified onset Qualified Code(s): G30.9 - Alzheimer's disease, unspecified; F02.81 - Dementia in other diseases classified elsewhere with behavioral disturbance Additional A&P Information Hypomagnesemia, supplemented Mild hyponatremia. Resolved Poor urine output with concern of retention. Continue Khan. Add Flomax. Diabetes mellitus. Increase Lantus slightly. Weakness, working with physical therapy Full code Lovenox for DVT prophylaxis Needs nursing facility placement. Not capable of making her own medical decisions currently. Will need rehabilitation if she qualifies. Unsafe to return to home environment. Attestations Medical Necessity Statement*: Needs continued hospitalization pending placement. Coding Level of Care Code Acute Loss Prevention Supervisor for [facility] Diagnoses Acute encephalopathy G93.40 Back pain M54.9 COVID-19 virus detected U07.1 Suicidal ideation R45.851 Renal colic on right side N23 WOLFE (nonalcoholic steatohepatitis) K75.81 Alzheimer's dementia with behavioral disturbance G30.9; F02.81 Alzheimer's disease onset: unspecified onset
--- NOTE | 2021-03-02 13:32 | P.NPUPN_ITS ---
Subjective NPU Subjective: Interval history: She says that she is very happy today because she is getting her 2 dogs back. She said that someone took her dogs when they put her in the ambulance. She also is happy because she met a lady yesterday who is now going to be her partner. This lady also has difficulty falling and she is going to get house so that they can both live there together. They can help each other when they fall. She says that she gets $28,000 every month and has no problem with money. She could not explain why she lives in a dump of a trailer as she has explained previously. He also said that she made several minor. She said that she is very active and she tells the manager market intelligence of the trailer court, Griffin, he will get her walk. However, he does feel it and she will have to go back behind him and pay for it. He said that she wanted every day for the last 4 days. To the door and to the window and then back to the bed. She wants the hospital to use her as an example to other people about how to take care of themselves and not get the COVID virus. She is much more conversant and seems in a very good mood today. She said the only reason that she had thoughts about wanting to was because she did not have her dogs. She has consistently denied being suicidal when I had spoken with her. Mental Status Exam MSE Comments: This is a obese 71-year-old female who appears her stated age and in no distress. she is dressed in a hospital gown. He is ple asant and cooperative with good eye contact psychomotor activity normal. Speech is at a regular rate and rhythm, normal volume, good articulation, not pressured. Alert, oriented only to self and that she is in the hospital. Attention and concentration are adequate. Memory is poor. Mood is mildly depressed at times. Affect is mildly dysphoric at times Thought process is logical and goal-directed. Thought content: Denies auditory and visual hallucinations. No delusions or paranoia are noted. No current suicidal ideation, and no homicidal ideation. Fund of knowledge is appears to be diminished. Insight and judgment appear to be limited. Impulse control is good as far as I can tell. Cognition: Level of Consciousness: Awake Patient Cognition Impaired: Yes Ability to Follow Directions: Fair Patient Orientation (long list): Person and Place Comprehension Ability: Mild Impairment Hallucination Type: None Delusion Description: Not Present Thought Process: Confused Affect: Affect Description: Anxious Depressive Symptoms: Unhappiness Behavior: Patient Behavior: Cooperative Speech Pattern: Clear Vitals/I&O/Wt Last Vital Signs Temp 98.4 F 03/02/21 07:37 Pulse 71 03/02/21 07:37 Resp 18 03/02/21 07:37 BP 98/60 03/02/21 07:37 Pulse Ox 93 03/02/21 07:37 03/01/21 03/02/21 03/02/21 22:59 06:59 14:59 Intake Total 240 / 1820 200 / 200 Output Total 650 / 1650 700 / 2350 Balance -410 / 170 -700 / -530 200 / 200 Physical Exam Urinary Catheter Management^: Khan: Cath Placed During This Visit: yes Reason for Continuing Indwelling Catheter: Acute Urinary Retention or Obstruction Urinary Catheter Date of Insertion: 02/28/21 Urinary Catheter Time of Insertion: 21:00 Data NPU : 03/01/21 10:45 03/02/21 05:16 A&P Assessment and plan (1) COVID-19 virus detected: Status: Acute (2) Alzheimer's dementia with behavioral disturbance: Status: Acute Qualifiers: Alzheimer's disease onset: unspecified onset Qualified Code(s): G30.9 - Alzheimer's disease, unspecified; F02.81 - Dementia in other diseases classified elsewhere with behavioral disturbance (3) Depression: Status: Acute Qualifiers: Depression Type: unspecified Qualified Code(s): F32.A - Depression, unspecified Additional A&P Information This is a 70-year-old female with multiple medical problems. She reports depression to me but no suicidal ideation. He continues to be fairly delusional. She certainly does not seem capable of taking care of herself at home. Her ability to assist in decision making appear to be limited. She would benefit from having a guardian who could help make decisions when she is out of that and delusional as she is at this moment. Attestations NPU Medical Necessity Statement*: See admitting physician's statements upon medical necessity. Coding Level of Care Code Acute Line Rider for [facility] [employer] [facility] Diagnoses COVID-19 virus detected U07.1 Alzheimer's dementia with behavioral disturbance G30.9; F02.81 Alzheimer's disease onset: unspecified onset Depression F32.A Depression Type: unspecified
[2021-03-02] MEDS: ipratropium-albuterol 3 mL Neb INHALATION ×2 (13:58→19:59)
[2021-03-02 18:29] LABS: Glucose Point of Care 232 mg/dL (70-110)
--- NOTE | 2021-03-02 18:34 | PC.NURSE ---
Patient refused all nightly meds. She states that she does not trust us. Patient requested to talk to case management several times today. I had messaged Dawn to tell her the patient wanted to speak with her, but patient states that she never showed. Patient seems agitated, but refuses any meds.
--- NOTE | 2021-03-02 20:06 | PC.NURSE ---
Shift report received from Daisy VALENTINE. Patient awake in bed/alarm on for safety and prevention of falls. Patient repositioned to supine per request. No needs voiced at this time.
[2021-03-02 21:33] LABS: Glucose Point of Care 311 mg/dL (70-110)
[2021-03-02] MEDS: tamsulosin 0.4 mg Capsule PO (21:53)
[2021-03-02] MEDS: insulin glargine 100 units/1 mL 30 UNIT SUBCUT (21:53)
[2021-03-03] VITALS (9 sets, daily range): BP systolic 100–160; BP diastolic 50–78; PULSE 67–78; RESP 17–18; TEMP 36.6–37; O2SAT 91–98
[2021-03-03] MEDS: risperiDONE 0.25 mg Tablet 0.5 MG PO ×2 (00:04→17:43)
[2021-03-03] MEDS: oxyCODONE 5 mg IR Tab/Cap PO ×2 (00:04→12:48)
[2021-03-03] MEDS: acetaminophen 325 mg Tablet 650 MG PO (00:04)
[2021-03-03 07:11] LABS: Glucose Point of Care 179 mg/dL (70-110)
[2021-03-03] MEDS: lisinopril 5 mg Tablet PO (08:07)
[2021-03-03] MEDS: pantoprazole DR 40 mg Tablet PO ×2 (08:07→17:43)
[2021-03-03] MEDS: metoprolol tartrate 25 mg Tablet PO ×2 (08:07→22:09)
[2021-03-03] MEDS: atorvastatin 40 mg Tablet PO (08:07)
[2021-03-03] MEDS: insulin lispro 100 unit/1 mL SUBCUT ×4 (08:07→23:09)
--- NOTE | 2021-03-03 09:18 | PC.SOCIAL ---
IMM Not given IMM not given. Seeking guardianship on pt.
[2021-03-03 12:04] LABS: Glucose Point of Care 233 mg/dL (70-110)
--- NOTE | 2021-03-03 12:20 | P.PN_ITS ---
Subjective Subjective: Interval history: Yesika was sleeping when I entered the room. Nurses related no concerns. Medications: Reviewed: Yes Vitals/I&O/Wt Last Vital Signs Temp 97.9 F 03/03/21 08:00 Pulse 69 03/03/21 09:22 Resp 17 03/03/21 09:22 BP 139/63 03/03/21 08:00 Pulse Ox 91 03/03/21 09:22 03/02/21 03/03/21 03/03/21 22:59 06:59 14:59 Intake Total 200 / 200 Output Total 850 / 850 1199 / 2049 Balance -850 / -650 -1200 / -1850 200 / 200 Physical Exam Narrative: EXAM NARRATIVE: General exam sleeping Neck supple Cardiovascular regular rate and rhythm Lungs clear Abdomen is soft, obese Extremities no cyanosis clubbing or edema Urinary Catheter Management: Khan: Cath Placed During This Visit: yes Reason for Continuing Indwelling Catheter: Acute Urinary Retention or Obst ruction Urinary Catheter Date of Insertion: 02/28/21 Urinary Catheter Time of Insertion: 21:00 Data : 03/01/21 10:45 03/02/21 05:16 A&P Assessment and plan (1) Acute encephalopathy: Unknown etiology. Certainly this could be infected some by medication at home. She is on multiple medications which could cause increased confusion Ammonia has been checked and normal Psychiatric consultation appreciated She potentially could be having some withdrawal as well from her chronic narcotics or muscle relaxants. These were restarted, lower dose. She is conversant but confused. Probably near her baseline. Secondary to delusions, psychosis she was initiated on Risperdal which she is tolerating well. Psychiatry saw her again on March 02, reiterating she does not have decisional capacity. Status: Acute (2) Back pain: From my understanding she has chronic back pain. She has been getting some morphine, and Dilaudid in the emergency department. Her oxycodone was restarted at lower dose, muscle relaxant at as needed dose and monitor closely. Status: Acute (3) COVID-19 virus detected: She has tested positive for COVID-19. From her history, and her contact with a neighbor I have no idea when she had exposure, or if she is even having symptoms from this. She has become cognizant enough to relay her symptoms have perhaps been going on 3 days. She is high risk for developing severe COVID and reports she is not vaccinated. She received monoclonal antibody during this hospital stay.. Note that she has no evidence of COVID requiring oxygen therapy and was not admitted for COVID currently. She continues to remain on room air. Status: Acute (4) Suicidal ideation: Psychiatry does not believe she is suicidal at this time. She intermittently still voices this although she is also delusional. Appreciate psychiatric consultation. She does not have decisional capacity per them. Alcohol level was less than 10. Salicylate and Tylenol level not elevated Status: Acute (5) Renal colic on right side: Recently had a renal stone with some evidence of mild obstruction. This is not visualized on current scan and urine demonstrates no evidence of infection Status: Inactive (6) WOLFE (nonalcoholic steatohepatitis): Evidence of esophageal and gastric varices are noted on CT scan. Ammonia level is normal I do not think there is any evidence for hepatic encephalopathy currently. Status: Acute (7) Alzheimer's dementia with behavioral disturbance: Patient has longstanding history of dementia, which could certainly be worsened with delirium with her current illness. Appreciate psychiatric consultation, and will continue to follow closely. Status: Acute Qualifiers: Alzheimer's disease onset: unspecified onset Qualified Code(s): G30.9 - Alzheimer's disease, unspecified; F02.81 - Dementia in other diseases classified elsewhere with behavioral disturbance Plan Diabetes mellitus. Increase Lantus slightly. Full code Lovenox for DVT prophylaxis Attestations Medical Necessity Statement*: Needs continued hospitalization pending placement. Coding Level of Care Code Acute Transportation Inspector for [facility] Diagnoses Acute encephalopathy G93.40 Back pain M54.9 COVID-19 virus detected U07.1 Suicidal ideation R45.851 Renal colic on right side N23 WOLFE (nonalcoholic steatohepatitis) K75.81 Alzheimer's dementia with behavioral disturbance G30.9; F02.81 Alzheimer's disease onset: unspecified onset
--- NOTE | 2021-03-03 16:45 | PC.SOCIAL ---
Mini Mental Status Exam Completed. Orientation to time: Patient knew the year but was not sure of date, month, day of week or season=1 point. Orienttation to Place: patient knew she was at [facility] [place] , in a hospital room, [facility] and [facility]. Did not know County= 4 points. Patient could recall words ball, flag and tree on first attempt to repeat back= 3. Patient was not able to count back by 7 from 100= 0 points. When asked to spell the word WORLD backwards was only able to do the D= 1 point. When asked to repeat the previous three words mentioned she was able to repeat ball=1 point. She was able to name wristwatch and pen= 2 points. She was able to repeat the following: No if, and or buts = 1. She was able to take paper fold and put on floor when asked= 3 points. She was able to read the words Close your eyes and follow the command= 1. She was able to write a sentence. She wrote Life is one of description = 1. She was not able to copy two intersecting shapes appropriately=0. Total score= 18
[2021-03-03 16:56] LABS: Glucose Point of Care 265 mg/dL (70-110)
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
[2021-03-03] MEDS: enoxaparin 40 mg/0.4 mL Syringe SUBCUT (17:42)
[2021-03-03] MEDS: tamsulosin 0.4 mg Capsule PO (22:09)
[2021-03-03] MEDS: insulin glargine 100 units/1 mL 40 UNIT SUBCUT (23:09)
[2021-03-04] VITALS (8 sets, daily range): BP systolic 96–151; BP diastolic 55–75; PULSE 63–76; RESP 16–19; TEMP 36.6–37.1; O2SAT 92–97
[2021-03-04 07:41] LABS: Glucose Point of Care 228 mg/dL (70-110)
[2021-03-04 07:41] LABS: Glucose Point of Care 224 mg/dL (70-110)
[2021-03-04 07:41] LABS: Glucose Point of Care 286 mg/dL (70-110)
[2021-03-04] MEDS: insulin lispro 100 unit/1 mL SUBCUT ×4 (09:14→22:02)
[2021-03-04] MEDS: risperiDONE 0.25 mg Tablet 0.5 MG PO ×2 (09:15→17:57)
[2021-03-04] MEDS: metoprolol tartrate 25 mg Tablet PO ×2 (09:15→22:02)
[2021-03-04] MEDS: lisinopril 5 mg Tablet PO (09:15)
[2021-03-04] MEDS: pantoprazole DR 40 mg Tablet PO ×2 (09:15→17:54)
[2021-03-04] MEDS: atorvastatin 40 mg Tablet PO (09:15)
--- NOTE | 2021-03-04 10:46 | PM.PN ---
Subjective Subjective: Interval history: Yesika reports she is doing okay. She rambles from subject to subject while I am in the room. Appears confused. Medications: Reviewed: Yes Vitals/I&O/Wt Last Vital Signs Temp 98.6 F 03/04/21 08:00 Pulse 75 03/04/21 08:51 Resp 18 03/04/21 08:51 BP 151/75 03/04/21 08:00 Pulse Ox 92 03/04/21 08:51 03/03/21 03/04/21 03/04/21 22:59 06:59 14:59 Intake Total 370 / 770 Output Total 800 / 800 1150 / 1950 Balance -430 / -30 -1150 / -1180 Physical Exam Narrative: EXAM NARRATIVE: General exam awakens for exam. Confused. Neck supple Cardiovascular regular rate and rhythm Lungs clear Abdomen is soft, obese Extremities no cyanosis clubbing or edema Urinary Catheter Management: Khan: Cath Placed During This Visit: yes Reason for Continuing Indwelling Catheter: Other Urinary Catheter Date of Insertion: 02/28/21 Urinary Catheter Time of Insertion: 21:00 Data : 03/01/21 10:45 03/02/21 05:16 A&P Assessment and plan (1) Acute encephalopathy: Unknown etiology. Certainly this could be infected some by medication at home. She is on multiple medications which could cause increased confusion Ammonia has been checked and normal Psychiatric consultation appreciated She potentially could be having some withdrawal as well from her chronic narcotics or muscle relaxants. These were restarted, lower dose. She is conversant but confused. Appears to be now at her baseline. Secondary to delusions, psychosis she was initiated on Risperdal which she is tolerating well. Psychiatry saw her again on March 02, reiterating she does not have decisional capacity. Awaiting placement and guardianship. Status: Acute (2) Back pain: From my understanding she has chronic back pain. She has been getting some morphine, and Dilaudid in the emergency department. Her oxycodone was restarted at lower dose, muscle relaxant at as needed dose and monitor closely. Status: Acute (3) COVID-19 virus detected: She has tested positive for COVID-19. From her history, and her contact with a neighbor I have no idea when she had exposure, or if she is even having symptoms from this. She has become cognizant enough to relay her symptoms have perhaps been going on 3 days. She is high risk for developing severe COVID and reports she is not vaccinated. She received monoclonal antibody during this hospital stay.. Note that she has no evidence of COVID requiring oxygen therapy and was not admitted for COVID currently. She continues to remain on room air, and appears to be doing well from the standpoint. Status: Acute (4) Suicidal ideation: Psychiatry does not believe she is suicidal at this time. She intermittently still voices this although she is also delusional. Appreciate psychiatric consultation. She does not have decisional capacity per them. Alcohol level was less than 10. Salicylate and Tylenol level not elevated Status: Acute (5) Renal colic on right side: Recently had a renal stone with some evidence of mild obstruction. This is not visualized on current scan and urine demonstrates no evidence of infection Status: Inactive (6) WOLFE (nonalcoholic steatohepatitis): Evidence of esophageal and gastric varices are noted on CT scan. Ammonia level is normal I do not think there is any evidence for hepatic encephalopathy currently. Status: Acute (7) Alzheimer's dementia with behavioral disturbance: Patient has longstanding history of dementia, which could certainly be worsened with delirium with her current illness. Appreciate psychiatric consultation. Status: Acute Qualifiers: Alzheimer's disease onset: unspecified onset Qualified Code(s): G30.9 - Alzheimer's disease, unspecified; F02.81 - Dementia in other diseases classified elsewhere with behavioral disturbance Plan Diabetes mellitus. Increase Lantus slightly. Full code Lovenox for DVT prophylaxis Attestations Medical Necessity Statement*: Needs continued hospitalization, pending guardianship and placement secondary to patient safety issues. Coding Level of Care Code Acute Loan Adviser for [facility] Diagnoses Acute encephalopathy G93.40 Back pain M54.9 COVID-19 virus detected U07.1 Suicidal ideation R45.851 Renal colic on right side N23 WOLFE (nonalcoholic steatohepatitis) K75.81 Alzheimer's dementia with behavioral disturbance G30.9; F02.81 Alzheimer's disease onset: unspecified onset
[2021-03-04 11:07] LABS: Glucose Point of Care 215 mg/dL (70-110)
--- NOTE | 2021-03-04 12:45 | PC.SOCIAL ---
Please note Yesika Fitch is [place] name and Patient after divorce was to return to this last name however she uses Laura still which is from first . NEAL has her as Laura- Colon. Colon was her second husbands name whom she middle of last year 2020.
[2021-03-04 17:26] LABS: Glucose Point of Care 235 mg/dL (70-110)
[2021-03-04] MEDS: enoxaparin 40 mg/0.4 mL Syringe SUBCUT (17:54)
[2021-03-04 21:31] LABS: Glucose Point of Care 269 mg/dL (70-110)
[2021-03-04] MEDS: oxyCODONE 5 mg IR Tab/Cap PO (22:01)
[2021-03-04] MEDS: tamsulosin 0.4 mg Capsule PO (22:02)
[2021-03-04] MEDS: insulin glargine 100 units/1 mL 40 UNIT SUBCUT (22:03)
[2021-03-05] VITALS (9 sets, daily range): BP systolic 90–136; BP diastolic 47–73; PULSE 68–129; RESP 14–22; TEMP 36.7–39.1; O2SAT 91–98
[2021-03-05] MEDS: acetaminophen 325 mg Tablet 650 MG PO (04:22)
[2021-03-05 06:28] LABS: Glucose Point of Care 250 mg/dL (70-110)
--- NOTE | 2021-03-05 08:05 | XR_ITS ---
WS: [id number] CHEST XRAY TECHNIQUE: Portable chest. CLINICAL INFORMATION: fever COMPARISON: February 26, 2021 FINDINGS: Shallow inspiration. Heart: Cardiomegaly. Aortic calcification. Lungs: Volume loss left lower lobe with elevation left hemidiaphragm is new from previous. Bilateral perihilar interstitial thickening. Small bilateral pleural effusions. Bones: Thoracic kyphosis XR/XR chest 1V portable [id number] IMPRESSION: 1. Shallow inspiration with cardiomegaly. 2. Small bilateral pleural effusions. New from previous. 3. Mild bilateral perihilar interstitial thickening/infiltrates. No focal cons olidation. 4. Volume loss left lower lobe with elevation left hemidiaphragm appears new f rom previous.
[2021-03-05 09:57] LABS: Eosinophils % 0.2 %; Hematocrit 30.9 % (37.0-47.0); Hemoglobin 9.7 g/dL (11.5-15.3); Lymphocytes # 0.7 10^3/uL (0.8-4.8); Mean Corpuscular HGB Conc 31.4 g/dL (30.0-36.0); Mean Platelet Volume 10.6 fL (7.4-10.4); Monocytes # 0.6 10^3/uL (0.2-0.9); Monocytes % 12.6 %; Neutrophils # 3.24 10^3/uL (1.8-7.7); Neutrophils % 71.8 %; Nucleated Red Blood Cells % 0 %; Platelet Count 81 10^3/cmm (130-400); Red Blood Count 3.03 10^6/uL (4.1-5.3); Red Cell Distribution Width 15.5 % (12.1-15.1); White Blood Count 4.5 10^3/uL (4.0-10.0)
[2021-03-05] MEDS: insulin lispro 100 unit/1 mL SUBCUT ×4 (10:08→22:30)
[2021-03-05] MEDS: risperiDONE 0.25 mg Tablet 0.5 MG PO ×2 (10:09→18:20)
[2021-03-05] MEDS: metoprolol tartrate 25 mg Tablet PO ×2 (10:09→20:00)
[2021-03-05] MEDS: lisinopril 5 mg Tablet PO (10:09)
[2021-03-05] MEDS: pantoprazole DR 40 mg Tablet PO ×2 (10:09→18:20)
[2021-03-05] MEDS: atorvastatin 40 mg Tablet PO (10:09)
[2021-03-05 10:38] LABS: Alanine Aminotransferase 11 U/L (0-33); Albumin Level 2.3 g/dL (3.5-5.2); Alkaline Phosphatase 225 IU/L (35-105); Anion Gap 13.4 (5-19); Aspartate Amino Transferase 17 U/L (0-32); Blood Urea Nitrogen 13 mg/dL (8-23); Calcium 9.2 mg/dL (8.5-10.5); Carbon Dioxide 20 mmol/L (22-29); Chloride 103 mmol/L (98-107); Globulin 3.1 g/dL (1.3-4.6); Glucose 240 mg/dL (65-115); Osmolality Calculated 282 mOsm/kg (285-295); Potassium 4.4 mmol/L (3.5-5.1); Sodium 132 mmol/L (136-145); Total Bilirubin 1.1 mg/dL (0.15-1.2); Total Protein 5.4 g/dL (6.6-8.7)
--- NOTE | 2021-03-05 11:25 | P.PN_ITS ---
Subjective Subjective: Interval history: Yesika had a significant temperature this morning. She reported she did not feel well, and was freezing . She denied any specific focal pain other than her chronic pain in her back. Medications: Reviewed: Yes Vitals/I&O/Wt Last Vital Signs Temp 100.1 F H 03/05/21 08:00 Pulse 68 03/05/21 09:44 Resp 16 03/05/21 09:44 BP 117/73 03/05/21 08:00 Pulse Ox 92 03/05/21 09:44 03/04/21 03/05/21 03/05/21 22:59 06:59 14:59 Output Total 350 / 900 Balance -350 / -630 Physical Exam Narrative: EXAM NARRATIVE: General exam awakens for exam. Confused but conversant Neck supple Cardiovascular regular rate and rhythm Lungs clear Abdomen is soft, obese Extremities no cyanosis clubbing or edema Urinary Catheter Management: Khan: Cath Placed During This Visit: yes, but has since been removed by the nurse Reason for Continuing Indwelling Catheter: Decision to DC Catheter Urinary Catheter Date of Insertion: 02/28/21 Urinary Catheter Time of Insertion: 21:00 Date Urinary Catheter Removed: 03/04/21 Time Urinary Catheter Discontinued: 18:00 Data : 03/05/21 09:18 03/05/21 09:18 Micro: Microbiology 03/05/21 09:19 Blood Culture - Preliminary Blood SPECIMEN COLLECTED 03/05/21 09:18 Blood Culture - Preliminary Blood SPECIMEN COLLECTED A&P Assessment and plan (1) Acute encephalopathy: Unknown etiology. Certainly this could be infected some by medication at home. She is on multiple medications which could cause increased confusion Ammonia has been checked and normal Psychiatric consultation appreciated She potentially could be having some withdrawal as well from her chronic narcotics or muscle relaxants. These were restarted, lower dose. She is conversant but confused. Appears to be now at her baseline. She appears to have significant dementia which impairs her decisional capacity. Secondary to delusions, psychosis she was initiated on Risperdal which she is tolerating well. We will try to reduce dose slightly Psychiatry saw her again on March 02, reiterating she does not have decisional capacity. Awaiting placement and guardianship. Status: Acute (2) Back pain: From my understanding she has chronic back pain. She has been getting some morphine, and Dilaudid in the emergency department. Her oxycodone was restarted at lower dose, muscle relaxant at as needed dose and monitor closely. Status: Acute (3) COVID-19 virus detected: She has tested positive for COVID-19. From her history, and her contact with a neighbor I have no idea when she had exposure, or if she is even having symptoms from this. She has become cognizant enough to relay her symptoms have perhaps been going on 3 days. She is high risk for developing severe COVID and reports she is not vaccinated. She received monoclonal antibody during this hospital stay.. Note that she has no evidence of COVID requiring oxygen therapy and was not admitted for COVID currently. She continues to remain on room air, and appears to be doing well from the standpoint. Status: Acute (4) Suicidal ideation: Psychiatry does not believe she is suicidal at this time. She intermittently still voices this although she is also delusional. Appreciate psychiatric consultation. She does not have decisional capacity per them. Alcohol level was less than 10. Salicylate and Tylenol level not elevated Status: Acute (5) Renal colic on right side: Recently had a renal stone with some evidence of mild obstruction. This is not visualized on current scan and urine demonstrates no evidence of infection Status: Inactive (6) WOLFE (nonalcoholic steatohepatitis): Evidence of esophageal and gastric varices are noted on CT scan. Ammonia level is normal I do not think there is any evidence for hepatic encephalopathy currently. Status: Acute (7) Alzheimer's dementia with behavioral disturbance: Patient has longstanding history of dementia, which could certainly be worsened with delirium with her current illness. Appreciate psychiatric consultation. Status: Acute Qualifiers: Alzheimer's disease onset: unspecified onset Qualified Code(s): G30.9 - Alzheimer's disease, unspecified; F02.81 - Dementia in other diseases classified elsewhere with behavioral disturbance Plan Diabetes mellitus. Continue Lantus and sliding scale Fever. Urine culture, chest x-ray, blood culture to be done. Antibiotic therapy will be instituted, and type will be dependent upon findings. Bladder scan. Urinary catheter was removed slightly over 24 hours ago. Possible infiltrate left lower lobe, right lower lobe. Urinalysis pending. Initiate Primaxin. Check MRSA PCR. Fever could also potentially be secondary to Covid. Not requiring oxygen. Full code Lovenox for DVT prophylaxis Attestations Medical Necessity Statement*: Needs continued hospitalization, pending placement, but is now developed significant fever that requires further work-up. Coding Level of Care Code Acute Drapery Rod Assembler for [facility] Diagnoses Acute encephalopathy G93.40 Back pain M54.9 COVID-19 virus detected U07.1 Suicidal ideation R45.851 Renal colic on right side N23 WOLFE (nonalcoholic steatohepatitis) K75.81 Alzheimer's dementia with behavioral disturbance G30.9; F02.81 Alzheimer's disease onset: unspecified onset
[2021-03-05 13:29] LABS: Glucose Point of Care 295 mg/dL (70-110)
[2021-03-05 18:08] LABS: Glucose Point of Care 222 mg/dL (70-110)
[2021-03-05] MEDS: enoxaparin 40 mg/0.4 mL Syringe SUBCUT (18:19)
[2021-03-05] MEDS: insulin glargine 100 units/1 mL 40 UNIT SUBCUT (19:59)
[2021-03-05] MEDS: tamsulosin 0.4 mg Capsule PO (20:00)
[2021-03-05 21:16] LABS: Glucose Point of Care 228 mg/dL (70-110)
[2021-03-06] VITALS (9 sets, daily range): BP systolic 110–126; BP diastolic 55–74; PULSE 69–99; RESP 16–20; TEMP 36.7–37.2; O2SAT 94–99
[2021-03-06] MEDS: oxyCODONE 5 mg IR Tab/Cap PO ×2 (04:54→10:34)
[2021-03-06 06:49] LABS: Glucose Point of Care 267 mg/dL (70-110)
--- NOTE | 2021-03-06 08:51 | PM.PN ---
Subjective Subjective: Interval history: Yesika reports she is doing okay this morning. She is more conversant. Still has some pain. Medications: Reviewed: Yes Vitals/I&O/Wt Last Vital Signs Temp 98.1 F 03/06/21 07:17 Pulse 99 03/06/21 07:17 Resp 17 03/06/21 07:17 BP 118/69 03/06/21 07:17 Pulse Ox 98 03/06/21 07:17 03/05/21 03/06/21 03/06/21 22:59 06:59 14:59 Intake Total 100 / 200 100 / 300 Balance 100 / -350 100 / -250 Physical Exam Narrative: EXAM NARRATIVE: General exam awakens for exam. Confused. Neck supple Cardiovascular regular rate and rhythm Lungs clear Abdomen is soft, obese Extremities no cyanosis clubbing or edema. Small decubitus left ankle without evidence of infection. Urinary Catheter Management: Khan: Cath Placed During This Visit: yes, but has since been removed by the nurse Reason for Continuing Indwelling Catheter: Decision to DC Catheter Urinary Catheter Date of Insertion: 02/28/21 Urinary Catheter Time of Insertion: 21:00 Date Urinary Catheter Removed: 03/04/21 Time Urinary Catheter Discontinued: 18:00 Data : 03/05/21 09:18 03/05/21 09:18 Micro: Microbiology 03/05/21 09:19 Blood Culture - Preliminary Blood SPECIMEN COLLECTED 03/05/21 09:18 Blood Culture - Preliminary Blood SPECIMEN COLLECTED A&P Assessment and plan (1) Acute encephalopathy: Unknown etiology. Certainly this could be infected some by medication at home. She is on multiple medications which could cause increased confusion Ammonia has been checked and normal Psychiatric consultation appreciated She potentially could be having some withdrawal as well from her chronic narcotics or muscle relaxants. These were restarted, lower dose. She is conversant but confused. Appears to be now at her baseline. She appears to have significant dementia which impairs her decisional capacity. Secondary to delusions, psychosis she was initiated on Risperdal which she is tolerating well. We will try to reduce dose slightly Psychiatry saw her again on March 02, reiterating she does not have decisional capacity. Awaiting placement and guardianship. Behavior is certainly better. Try to reduce Risperdal to 0.25 mg twice daily Status: Acute (2) Back pain: From my understanding she has chronic back pain. She has been getting some morphine, and Dilaudid in the emergency department. Her oxycodone was restarted at lower dose, muscle relaxant at as needed dose and monitor closely. Status: Acute (3) COVID-19 virus detected: She has tested positive for COVID-19. From her history, and her contact with a neighbor I have no idea when she had exposure, or if she is even having symptoms from this. She has become cognizant enough to relay her symptoms have perhaps been going on 3 days. She is high risk for developing severe COVID and reports she is not vaccinated. She received monoclonal antibody during this hospital stay.. Note that she has no evidence of COVID requiring oxygen therapy and was not admitted for COVID currently. She continues to remain on room air, and appears to be doing well from the standpoint. She may now come out of quarantine, as she is over 10 days from symptomatology and did not have moderate or severe disease. Status: Acute (4) Suicidal ideation: Psychiatry does not believe she is suicidal at this time. She intermittently still voices this although she is also delusional. Appreciate psychiatric consultation. She does not have decisional capacity per them. Alcohol level was less than 10. Salicylate and Tylenol level not elevated Status: Acute (5) Renal colic on right side: Recently had a renal stone with some evidence of mild obstruction. This is not visualized on current scan and urine demonstrates no evidence of infection Status: Inactive (6) WOLFE (nonalcoholic steatohepatitis): Evidence of esophageal and gastric varices are noted on CT scan. Ammonia level is normal I do not think there is any evidence for hepatic encephalopathy currently. Status: Acute (7) Alzheimer's dementia with behavioral disturbance: Patient has longstanding history of dementia, which could certainly be worsened with delirium with her current illness. Appreciate psychiatric consultation. Status: Acute Qualifiers: Alzheimer's disease onset: unspecified onset Qualified Code(s): G30.9 - Alzheimer's disease, unspecified; F02.81 - Dementia in other diseases classified elsewhere with behavioral disturbance Plan Diabetes mellitus. Continue Lantus and sliding scale Fever. UTI heavily suspected. Laboratory repeated,As well as chest x-ray. Mild interstitial infiltrates. Primaxin initiated as fever developed in hospital, and was not thought to be likely secondary to Covid. A urinalysis and culture was also ordered but it has not been done. I discussed again with the nurse the importance of obtaining this. Bladder scan was done after an episode of incontinence and she does not have significant residual. She did have a Khan earlier in the hospital course. MRSA PCR pending. Blood culture negative to date. Full code Lovenox for DVT prophylaxis Attestations Medical Necessity Statement*: Needs continued hospital stay for IV antibiotics for concern of possible pneumonia, possible UTI, while awaiting guardianship. Coding Level of Care Code Acute Certified Alcohol And Drug Counselor for [facility] Fwd Diagnoses Acute encephalopathy G93.40 Back pain M54.9 COVID-19 virus detected U07.1 Suicidal ideation R45.851 Renal colic on right side N23 WOLFE (nonalcoholic steatohepatitis) K75.81 Alzheimer's dementia with behavioral disturbance G30.9; F02.81 Alzheimer's disease onset: unspecified onset
[2021-03-06] MEDS: metoprolol tartrate 25 mg Tablet PO ×2 (09:33→20:18)
[2021-03-06] MEDS: atorvastatin 40 mg Tablet PO (09:33)
[2021-03-06] MEDS: pantoprazole DR 40 mg Tablet PO ×2 (09:33→16:20)
[2021-03-06] MEDS: lisinopril 5 mg Tablet PO (09:33)
[2021-03-06] MEDS: risperiDONE 0.25 mg Tablet PO ×2 (09:36→16:20)
[2021-03-06] MEDS: insulin lispro 100 unit/1 mL SUBCUT ×4 (09:44→22:24)
[2021-03-06 10:53] LABS: Bacillus cereus group Not Detected (NOT DETECT); Bacillus subtillis group Not Detected (NOT DETECT); Corynebacterium Not Detected (NOT DETECT); Cutibacterium acnes (P.acnes) Not Detected (NOT DETECT); Enterococcus Not Detected (NOT DETECT); Enterococcus faecalis Not Detected (NOT DETECT); Enterococcus faecium Not Detected (NOT DETECT); Lactobacillus species Not Detected (NOT DETECT); Listeria Not Detected (NOT DETECT); Listeria monocytogenes Not Detected (NOT DETECT); Micrococcus Not Detected (NOT DETECT); Pan Candida Not Detected (NOT DETECT); Pan Gram-Negative Not Detected (NOT DETECT); Staphylococcus epidermidis Detected (NOT DETECT); Staphylococcus lugdunensis Not Detected (NOT DETECT); Staphylococcus species Detected (NOT DETECT); Streptococcus agalactiae Not Detected (NOT DETECT); Streptococcus anginosus group Not Detected (NOT DETECT); Streptococcus pneumoniae Not Detected (NOT DETECT); Streptococcus pyogenes Not Detected (NOT DETECT); Streptococcus species Not Detected (NOT DETECT); mecA Detected (NOT DETECT); mecC Not Detected (NOT DETECT)
[2021-03-06 11:11] LABS: Bilirubin Urine 1+ (Negative); Blood Urine 2+ (Negative); Glucose Urine UA 1+ (Normal); Ketones Urine 1+ (Negative); Nitrate Urine Negative (Negative); Protein Urine Neg (Negative); Specific Gravity, Urine 1.015 (1.005-1.030); Urine Appearance Cloudy (CLEAR); Urine Color Dark Yellow (Yellow); Urobilinogen Urine 8 mg/dL (Negative); pH Urine 6.5 (5-7)
[2021-03-06 11:12] LABS: Bacteria Urine TRACE /hpf; Leukocyte Esterase Urine 2+ (Negative); WBC Urine 55-80 /hpf (0-5)
[2021-03-06 11:13] LABS: Add Urine Culture? No
[2021-03-06 11:33] LABS: Glucose Point of Care 322 mg/dL (70-110)
[2021-03-06] MEDS: enoxaparin 40 mg/0.4 mL Syringe SUBCUT (15:36)
[2021-03-06 17:24] LABS: Glucose Point of Care 262 mg/dL (70-110)
[2021-03-06] MEDS: tamsulosin 0.4 mg Capsule PO (20:10)
[2021-03-06] MEDS: insulin glargine 100 units/1 mL 40 UNIT SUBCUT (20:10)
[2021-03-06 21:29] LABS: Glucose Point of Care 186 mg/dL (70-110)
[2021-03-07] VITALS (9 sets, daily range): BP systolic 103–134; BP diastolic 57–91; PULSE 77–100; RESP 16–20; TEMP 36.7–37.3; O2SAT 93–98
[2021-03-07 06:49] LABS: Basophils % 0.2 %; Eosinophils % 0.7 %; Hematocrit 31.6 % (37.0-47.0); Hemoglobin 9.7 g/dL (11.5-15.3); Lymphocytes # 0.6 10^3/uL (0.8-4.8); Lymphocytes % 12.9 %; Mean Corpuscular HGB Conc 30.7 g/dL (30.0-36.0); Mean Corpuscular Hemoglobin 32.2 pg (28.0-34.0); Mean Platelet Volume 10.7 fL (7.4-10.4); Monocytes # 0.7 10^3/uL (0.2-0.9); Monocytes % 16.8 %; Neutrophils % 69.2 %; Nucleated Red Blood Cells % 0 %; Platelet Count 91 10^3/cmm (130-400); Red Blood Count 3.01 10^6/uL (4.1-5.3); Red Cell Distribution Width 15.4 % (12.1-15.1); White Blood Count 4.3 10^3/uL (4.0-10.0)
[2021-03-07 07:11] LABS: Alanine Aminotransferase 9 U/L (0-33); Albumin Level 2.3 g/dL (3.5-5.2); Alkaline Phosphatase 228 IU/L (35-105); Aspartate Amino Transferase 14 U/L (0-32); Blood Urea Nitrogen 12 mg/dL (8-23); Calcium 8.3 mg/dL (8.5-10.5); Carbon Dioxide 21 mmol/L (22-29); Chloride 103 mmol/L (98-107); Globulin 3.3 g/dL (1.3-4.6); Glucose 116 mg/dL (65-115); Osmolality Calculated 275 mOsm/kg (285-295); Sodium 132 mmol/L (136-145); Total Bilirubin 1.2 mg/dL (0.15-1.2); Total Protein 5.6 g/dL (6.6-8.7)
[2021-03-07 08:08] LABS: Glucose Point of Care 134 mg/dL (70-110)
--- NOTE | 2021-03-07 09:31 | P.PN_ITS ---
Subjective Subjective: Interval history: She is in no distress, but is fairly confused. This does not seem to be worse than yesterday. She has had no more fever or hypotension. Medications: Reviewed: Yes Vitals/I&O/Wt Last Vital Signs Temp 98.0 F 03/07/21 07:40 Pulse 97 03/07/21 07:40 Resp 18 03/07/21 07:40 BP 127/75 03/07/21 07:40 Pulse Ox 93 03/07/21 07:40 03/06/21 03/07/21 03/07/21 22:59 06:59 14:59 Intake Total 350 / 450 200 / 650 Balance 350 / 100 200 / 300 Physical Exam Narrative: EXAM NARRATIVE: She is confused but in no distress. Her mouth is fairly dry. Neck/C-Spine: COMMON NORMALS: no JVD Resp: COMMON NORMALS: normal respiratory effort, No retractions, No use of accessory muscles, clear to auscultation bilaterally and percussion normal AUSCULTATION: clear to auscultation bilaterally PERCUSSION: percussion normal Cardio: COMMON NORMALS: no JVD, regular rate, regular rhythm, S1 normal heart sound present, S2 normal heart sound present, No gallops present (Cardio), No clicks present (Cardio), No murmurs present (Cardio), No rub (Cardio) and Peripheral pulses 2+ throughout RATE: regular rate RHYTHM: regular rhythm HEART SOUNDS: S1 normal heart sound present and S2 normal heart sound present PERIPHERAL PULSES: Peripheral pulses 2+ throughout GI: COMMON NORMALS: Normal to inspection, nondistended, normoactive bowel sounds present, Soft to palpation, non-tender, No hepatosplenomegaly present, no masses and no bruits PALPATION: Yes Soft to palpation and Yes No hepatosplenomegaly present Urinary Catheter Management: Khan: Cath Placed During This Visit: yes, but has since been removed by the nurse Reason for Continuing Indwelling Catheter: Decision to DC Catheter Urinary Catheter Date of Insertion: 02/28/21 Urinary Catheter Time of Insertion: 21:00 Date Urinary Catheter Removed: 03/04/21 Time Urinary Catheter Discontinued: 18:00 Data : 03/07/21 05:55 03/07/21 05:55 Micro: Microbiology 03/05/21 10:30 Urine Culture - Preliminary Urine,Voided 03/05/21 22:50 MRSA Culture - Final Nose 03/05/21 09:18 Blood Culture - Preliminary Blood Staphylococcus epidermidis 03/05/21 09:19 Blood Culture - Preliminary Blood NEGATIVE TO DATE A&P Assessment and plan (1) Alzheimer's dementia with behavioral disturbance: Status: Acute Qualifiers: Alzheimer's disease onset: unspecified onset Qualified Code(s): G30.9 - Alzheimer's disease, unspecified; F02.81 - Dementia in other diseases classified elsewhere with behavioral disturbance (2) COVID-19 virus detected: Status: Acute (3) Acute encephalopathy: Status: Acute Plan At this point I think she is stable for placement. I will discuss with nursing and social work on the status of her guardianship. Attestations Medical Necessity Statement*: She will need to be here until we can find placement. She needs guardianship as well. Coding Level of Care Code Acute Patient Access Registrar for [facility] Diagnoses Alzheimer's dementia with behavioral disturbance G30.9; F02.81 Alzheimer's disease onset: unspecified onset COVID-19 virus detected U07.1 Acute encephalopathy G93.40
[2021-03-07] MEDS: lisinopril 5 mg Tablet PO (09:37)
[2021-03-07] MEDS: atorvastatin 40 mg Tablet PO (09:37)
[2021-03-07] MEDS: metoprolol tartrate 25 mg Tablet PO ×2 (09:38→22:17)
[2021-03-07] MEDS: pantoprazole DR 40 mg Tablet PO ×2 (09:38→16:44)
[2021-03-07] MEDS: risperiDONE 0.25 mg Tablet PO ×2 (09:41→16:44)
[2021-03-07] MEDS: oxyCODONE 5 mg IR Tab/Cap PO ×2 (09:51→16:44)
[2021-03-07 10:55] LABS: Glucose Point of Care 128 mg/dL (70-110)
[2021-03-07] MEDS: enoxaparin 40 mg/0.4 mL Syringe SUBCUT (16:44)
[2021-03-07 17:02] LABS: Glucose Point of Care 192 mg/dL (70-110)
[2021-03-07 20:56] LABS: Glucose Point of Care 187 mg/dL (70-110)
[2021-03-07] MEDS: insulin glargine 100 units/1 mL 40 UNIT SUBCUT (22:17)
[2021-03-07] MEDS: tamsulosin 0.4 mg Capsule PO (22:17)
[2021-03-07] MEDS: insulin lispro 100 unit/1 mL SUBCUT (22:17)
[2021-03-08 03:59] VITALS: BP 120/63; PULSE 89; RESP 20; TEMP 37.2; O2SAT 95
[2021-03-08 06:27] LABS: Glucose Point of Care 131 mg/dL (70-110)
[2021-03-08 08:40] VITALS: BP 116/74; PULSE 98; RESP 16; TEMP 37.1; O2SAT 95
[2021-03-08] MEDS: lisinopril 5 mg Tablet PO (10:41)
[2021-03-08] MEDS: pantoprazole DR 40 mg Tablet PO ×2 (10:42→18:04)
[2021-03-08] MEDS: metoprolol tartrate 25 mg Tablet PO (10:42)
[2021-03-08] MEDS: atorvastatin 40 mg Tablet PO (10:42)
[2021-03-08] MEDS: risperiDONE 0.25 mg Tablet PO ×2 (10:45→18:04)
--- NOTE | 2021-03-08 11:47 | P.PN_ITS ---
Subjective Subjective: Interval history: She actually looks like she feels better today. She has better color. She complains of aches and pains. She is still somewhat confabulating. She is con cerned that she is offended the physical therapist and intends on sending him a bouquet of [place]. Vitals/I&O/Wt Last Vital Signs Temp 98.7 F 03/08/21 08:40 Pulse 98 03/08/21 08:40 Resp 16 03/08/21 08:40 BP 116/74 03/08/21 08:40 Pulse Ox 95 03/08/21 08:40 03/07/21 03/08/21 03/08/21 22:59 06:59 14:59 Intake Total 100 / 200 440 / 640 Balance 100 / 200 440 / 640 Physical Exam Narrative: EXAM NARRATIVE: She is in no distress, but she remains pleasantly confused. Urinary Catheter Management: Khan: Cath Placed During This Visit: yes, but has since been removed by the nurse Reason for Continuing Indwelling Catheter: Decision to DC Catheter Urinary Catheter Date of Insertion: 02/28/21 Urinary Catheter Time of Insertion: 21:00 Date Urinary Catheter Removed: 03/04/21 Time Urinary Catheter Discontinued: 18:00 Data : 03/07/21 05:55 03/07/21 05:55 Micro: Microbiology 03/05/21 10:30 Urine Culture - Final Urine,Voided 03/05/21 09:18 Blood Culture - Preliminary Blood Staphylococcus epidermidis Gram positive scotty A&P Assessment and plan (1) Back pain: Status: Acute (2) Alzheimer's dementia with behavioral disturbance: We await guardianship and placement. She is not safe at home, and I do not believe there is anyone that can take her home and be with her. We await the guidance of her theater set production designer. Status: Acute Qualifiers: Alzheimer's disease onset: unspecified onset Qualified Code(s): G30.9 - Alzheimer's disease, unspecified; F02.81 - Dementia in other diseases classified elsewhere with behavioral disturbance (3) COVID-19 virus detected: Status: Acute Attestations Medical Necessity Statement*: She will need inpatient care as long as she does not have guardianship. I anticipate this to be more than 2 midnights. Coding Level of Care Code Acute Supervisor Buffing And Pasting for [facility] Fwd Diagnoses Back pain M54.9 Alzheimer's dementia with behavioral disturbance G30.9; F02.81 Alzheimer's disease onset: unspecified onset COVID-19 virus detected U07.1
[2021-03-08 12:16] VITALS: BP 93/59; PULSE 93; RESP 16; TEMP 36.8; O2SAT 95
[2021-03-08 12:32] LABS: Glucose Point of Care 174 mg/dL (70-110)
[2021-03-08] MEDS: oxyCODONE 5 mg IR Tab/Cap PO (13:27)
[2021-03-08] MEDS: acetaminophen 325 mg Tablet 650 MG PO ×2 (15:40→22:03)
[2021-03-08] MEDS: enoxaparin 40 mg/0.4 mL Syringe SUBCUT (15:40)
[2021-03-08 16:14] VITALS: BP 106/63; PULSE 83; RESP 16; TEMP 36.6; O2SAT 93
[2021-03-08 16:53] LABS: Glucose Point of Care 223 mg/dL (70-110)
[2021-03-08] MEDS: insulin lispro 100 unit/1 mL SUBCUT ×2 (18:03→22:02)
[2021-03-08 20:00] VITALS: BP 96/57; PULSE 93; RESP 17; TEMP 37.1; O2SAT 94
[2021-03-08 20:02] VITALS: PULSE 88; RESP 18; O2SAT 93
[2021-03-08 20:59] LABS: Glucose Point of Care 193 mg/dL (70-110)
[2021-03-08] MEDS: tamsulosin 0.4 mg Capsule PO (22:02)
[2021-03-08] MEDS: insulin glargine 100 units/1 mL 40 UNIT SUBCUT (22:03)
[2021-03-08] MEDS: capsaicin 0.025% cream 60 gm 1 APPLIC TOPICAL (22:04)
[2021-03-09] VITALS: BP 131/77; PULSE 69; RESP 17; TEMP 36.5; O2SAT 94
[2021-03-09 04:00] VITALS: BP 124/71; PULSE 96; RESP 16; TEMP 37.4; O2SAT 94
[2021-03-09] MEDS: capsaicin 0.025% cream 60 gm 1 APPLIC TOPICAL (06:24)
[2021-03-09 06:54] LABS: Glucose Point of Care 158 mg/dL (70-110)
[2021-03-09 08:00] VITALS: BP 123/52; PULSE 91; TEMP 37.1; O2SAT 95
--- NOTE | 2021-03-09 08:10 | PC.SOCIAL ---
IMM Update: pg 2 of IMM not updated @ this time. Guardianship is pending.
[2021-03-09] MEDS: insulin lispro 100 unit/1 mL SUBCUT ×4 (08:14→21:10)
[2021-03-09] MEDS: pantoprazole DR 40 mg Tablet PO ×2 (08:14→17:33)
[2021-03-09] MEDS: risperiDONE 0.25 mg Tablet PO ×2 (08:14→17:33)
[2021-03-09] MEDS: lisinopril 5 mg Tablet PO (08:15)
[2021-03-09] MEDS: metoprolol tartrate 25 mg Tablet PO ×2 (08:15→21:12)
[2021-03-09] MEDS: atorvastatin 40 mg Tablet PO (08:15)
--- NOTE | 2021-03-09 10:41 | P.PN_ITS ---
Subjective Subjective: Interval history: Yesika reports she wants to get back on her allopurinol. She is conversant today. She still jumps from subject to subject. Medications: Reviewed: Yes Vitals/I&O/Wt Last Vital Signs Temp 99.4 F 03/09/21 04:00 Pulse 96 03/09/21 04:00 Resp 16 03/09/21 04:00 BP 124/71 03/09/21 04:00 Pulse Ox 94 03/09/21 04:00 03/08/21 03/09/21 03/09/21 22:59 06:59 14:59 Intake Total 220 / 320 200 / 520 Output Total 700 / 700 Balance -480 / -380 200 / -180 Physical Exam Narrative: EXAM NARRATIVE: General exam no distress Neck supple Cardiovascular regular rate and rhythm Lungs clear Abdomen is soft, obese Extremities no cyanosis clubbing or edema. Small decubitus left ankle without evidence of infection. Urinary Catheter Management: Khan: Cath Placed During This Visit: yes, but has since been removed by the nurse Reason for Continuing Indwelling Catheter: Acute Urinary Retention or Obstruction Urinary Catheter Date of Insertion: 03/09/21 Urinary Catheter Time of Insertion: 05:40 Date Urinary Catheter Removed: 03/04/21 Time Urinary Catheter Discontinued: 18:00 Data : 03/07/21 05:55 03/07/21 05:55 Micro: Microbiology 03/05/21 10:30 Urine Culture - Final Urine,Voided 03/05/21 09:18 Blood Culture - Preliminary Blood Staphylococcus epidermidis Gram positive scotty A&P Assessment and plan (1) Acute encephalopathy: Unknown etiology. Certainly this could be infected some by medication at home. She is on multiple medications which could cause increased confusion Ammonia has been checked and normal Psychiatric consultation appreciated She potentially could be having some withdrawal as well from her chronic narcotics or muscle relaxants. These were restarted, lower dose. She is conversant but confused. Appears to be now at her baseline. She appears to have significant dementia which impairs her decisional capacity. Secondary to delusions, psychosis she was initiated on Risperdal which she is tolerating well. We will try to reduce dose slightly Psychiatry saw her again on March 02, reiterating she does not have decisional capacity. Awaiting placement and guardianship. Behavior is certainly better. Risperdal was reduced to 0.25 mg twice daily Status: Acute (2) Back pain: From my understanding she has chronic back pain. She has been getting some morphine, and Dilaudid in the emergency department. Her oxycodone was restarted at lower dose, muscle relaxant at as needed dose and monitor closely. Status: Acute (3) COVID-19 virus detected: She has tested positive for COVID-19. From her history, and her contact with a neighbor I have no idea when she had exposure, or if she is even having symptoms from this. She has become cognizant enough to relay her symptoms have perhaps been going on 3 days. She is high risk for developing severe COVID and reports she is not vaccinated. She received monoclonal antibody during this hospital stay.. Note that she has no evidence of COVID requiring oxygen therapy and was not admitted for COVID currently. She continues to remain on room air, and appears to be doing well from the [facility]. She may now come out of quarantine, as she is over 10 days from symptomatology and did not have moderate or severe disease. Status: Acute (4) Suicidal ideation: Psychiatry does not believe she is suicidal at this time. She intermittently still voices this although she is also delusional. Appreciate psychiatric consultation. She does not have decisional capacity per them. Alcohol level was less than 10. Salicylate and Tylenol level not elevated Status: Acute (5) Renal colic on right side: Recently had a renal stone with some evidence of mild obstruction. This is not visualized on current scan and urine demonstrates no evidence of infection Status: Inactive (6) WOLFE (nonalcoholic steatohepatitis): Evidence of esophageal and gastric varices are noted on CT scan. Ammonia level is normal I do not think there is any evidence for hepatic encephalopathy currently. Status: Acute (7) Alzheimer's dementia with behavioral disturbance: Patient has longstanding history of dementia, which could certainly be worsened with delirium with her current illness. Appreciate psychiatric consultation. Status: Acute Qualifiers: Alzheimer's disease onset: unspecified onset Qualified Code(s): G30.9 - Alzheimer's disease, unspecified; F02.81 - Dementia in other diseases classified elsewhere with behavioral disturbance Plan Diabetes mellitus. Continue Lantus and sliding scale Fever. Etiology of this was most likely UTI. Antibiotic was changed to Primaxin. She will finish 7 days. Culture was negative, blood culture was obtained after antibiotics changed. She did have a Khan earlier in the hospital course. MRSA PCR negative. Blood culture staph epi, gram-positive scotty each in 1 bottle in 1 set which I suspect are contaminants Full code Lovenox for DVT prophylaxis Attestations Medical Necessity Statement*: Needs continued hospitalization pending guardianship. Coding Level of Care Code Acute Tele Rn for [facility] Fwd Diagnoses Acute encephalopathy G93.40 Back pain M54.9 COVID-19 virus detected U07.1 Suicidal ideation R45.851 Renal colic on right side N23 WOLFE (nonalcoholic steatohepatitis) K75.81 Alzheimer's dementia with behavioral disturbance G30.9; F02.81 Alzheimer's disease onset: unspecified onset
[2021-03-09] MEDS: allopurinol 300 mg Tablet PO (11:12)
[2021-03-09] MEDS: potassium chloride ER 20 mEq Tablet PO (11:12)
[2021-03-09] MEDS: FUROsemide 40 mg Tablet PO (11:13)
[2021-03-09] MEDS: clopidogrel 75 mg Tablet PO (11:13)
[2021-03-09 12:00] VITALS: BP 114/49; PULSE 70; TEMP 37.4; O2SAT 98
[2021-03-09 12:19] LABS: Glucose Point of Care 218 mg/dL (70-110)
[2021-03-09 17:24] LABS: Glucose Point of Care 301 mg/dL (70-110)
[2021-03-09] MEDS: enoxaparin 40 mg/0.4 mL Syringe SUBCUT (17:33)
[2021-03-09 19:24] VITALS: BP 119/58; PULSE 95; RESP 17; TEMP 37.1; O2SAT 85
[2021-03-09 21:00] LABS: Glucose Point of Care 301 mg/dL (70-110)
[2021-03-09] MEDS: insulin glargine 100 units/1 mL 40 UNIT SUBCUT (21:10)
[2021-03-09] MEDS: tamsulosin 0.4 mg Capsule PO (21:12)
[2021-03-10] VITALS: BP 105/61; PULSE 66; RESP 18; O2SAT 95
[2021-03-10] MEDS: acetaminophen 325 mg Tablet 650 MG PO (01:25)
[2021-03-10] MEDS: capsaicin 0.025% cream 60 gm 1 APPLIC TOPICAL (01:25)
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
[2021-03-10 03:14] VITALS: BP 91/58; PULSE 74; RESP 17; TEMP 36.8; O2SAT 90
--- NOTE | 2021-03-10 05:10 | PC.NURSE ---
Shift Note Frequent safety and comfort rounds continue. Orders and/or nursing care completed as indicated. Patient monitored for response to intervention and treatment(s). Education provided includes iv antibiotics. Patient and/or major account representative verbalizes understanding but is confused. Will continue to monitor.
[2021-03-10 06:03] LABS: Blood Urea Nitrogen 15 mg/dL (8-23); Calcium 8.3 mg/dL (8.5-10.5); Carbon Dioxide 21 mmol/L (22-29); Chloride 106 mmol/L (98-107); Glucose 111 mg/dL (65-115); Osmolality Calculated 278 mOsm/kg (285-295); Sodium 133 mmol/L (136-145)
[2021-03-10 06:04] LABS: Anion Gap 9.7 (5-19); Potassium 3.7 mmol/L (3.5-5.1)
[2021-03-10 06:36] LABS: Glucose Point of Care 127 mg/dL (70-110)
[2021-03-10 07:02] LABS: Basophils % 0.3 %; Eosinophils # 0.1 10^3/uL (0.0-0.8); Eosinophils % 3.3 %; Hematocrit 32.1 % (37.0-47.0); Hemoglobin 9.6 g/dL (11.5-15.3); Lymphocytes # 0.7 10^3/uL (0.8-4.8); Mean Corpuscular HGB Conc 29.9 g/dL (30.0-36.0); Mean Corpuscular Hemoglobin 31.3 pg (28.0-34.0); Mean Corpuscular Volume 104.6 fl (81-99); Mean Platelet Volume 10.2 fL (7.4-10.4); Monocytes # 0.4 10^3/uL (0.2-0.9); Monocytes % 10.4 %; Neutrophils # 2.19 10^3/uL (1.8-7.7); Neutrophils % 64.7 %; Nucleated Red Blood Cells % 0 %; Platelet Count 115 10^3/cmm (130-400); Red Blood Count 3.07 10^6/uL (4.1-5.3); Red Cell Distribution Width 14.9 % (12.1-15.1); White Blood Count 3.4 10^3/uL (4.0-10.0)
[2021-03-10 07:57] VITALS: BP 104/65; PULSE 84; RESP 16; TEMP 36.7; O2SAT 94
[2021-03-10] MEDS: metoprolol tartrate 25 mg Tablet PO ×2 (08:13→20:47)
[2021-03-10] MEDS: potassium chloride ER 20 mEq Tablet PO (08:13)
[2021-03-10] MEDS: FUROsemide 40 mg Tablet PO (08:14)
[2021-03-10] MEDS: risperiDONE 0.25 mg Tablet PO ×2 (08:14→17:19)
[2021-03-10] MEDS: atorvastatin 40 mg Tablet PO (08:14)
[2021-03-10] MEDS: clopidogrel 75 mg Tablet PO (08:14)
[2021-03-10] MEDS: lisinopril 5 mg Tablet PO (08:14)
[2021-03-10] MEDS: pantoprazole DR 40 mg Tablet PO ×2 (08:14→17:16)
[2021-03-10] MEDS: allopurinol 300 mg Tablet PO (08:14)
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
--- NOTE | 2021-03-10 10:52 | PC.CHAP ---
Pastoral Care Encounter/Spiritual Assessment Type of Contact [] Declined cloth cutting inspector visit [] Patient/Family/Request visit [] Outpatient visit [] Follow-up visit [] Physician referral [] Code/Alert [x] Routine visit [] Staff referral [] Actively dying [] Patient sleeping [] Family support [] [] Out of room [] Palliative care [] [] Receiving care in room [] Pre-surgical visit [] Trauma [] Long length of stay [] ICU visit [] Other: Relational/Emotional Strength [x] Patient feels connected with others/family/visitors/staff [] Distress [] Loneliness/isolation [] Abandonment Spirituality of Patient [x] Person of Rocio [x] Attends Muslim of their Rocio [x] Believes in Prayer [x] Reads Bible or Restorationist materials [] There are Spiritual issues to be addressed Java J[employer] Application Developer Interventions [x] Prayer [x] Active listening [x] Non-anxious presence [x] Spiritual/emotional support [] Crisis/trauma care [] Spiritual counseling [] Bereavement support [] Provided bereavement packet [] Provided Bible/devotional materials [] Provided toy/stuffed animal, coloring book to patient or family member [] Provided Communion [] Anointing/[place] [] Salvation [] Completed spiritual assessment [] Other: Impact on Illness or Injury [] Angry [] Fearful [] Anxious [] Often cries [] Exhaustion [] Unable to work [] Unable to attend gnosticism [] Unable to walk/stand [] Unable to read [] Unable to drive [] Unable to eat/drink [] Unable to sleep [] Unable to be with family [] Patient intubated [] Other: Summary Java J2Ee Application Developer had a difficult time following some of the things Pt said. She stated she has had a spiritual experience yesterday, like an explosion . She wants to share with other people and wanted information on how to be a cloth cutting inspector. However, she wants to be connected with the government and work with someone like ZUNILDA. From what cloth cutting inspector was able to determine, Pt has a son and a daughter but they may not be close with Pt. Pt reports she has been of the Rastafarian rocio. Time spent with patient 20m
--- NOTE | 2021-03-10 11:09 | PM.PN ---
Subjective Subjective: Interval history: Yesika reports she does not want to go to a nursing facility. She does want take a shower today. We discussed taking her urinary catheter out and she would like to try this. She is a little bit confused about who visited her this morning but eventually comes around to telling me it is Dr. Fitch after calling him her daughter's friend, and then a counselor. Medications: Reviewed: Yes Vitals/I&O/Wt Last Vital Signs Temp 98.1 F 03/10/21 07:57 Pulse 84 03/10/21 07:57 Resp 16 03/10/21 07:57 BP 104/65 03/10/21 07:57 Pulse Ox 94 03/10/21 07:57 03/09/21 03/10/21 03/10/21 22:59 06:59 14:59 Intake Total 100 / 680 680 / 1360 240 / 240 Output Total 950 / 950 400 / 1350 Balance -850 / -270 280 / 10 240 / 240 Physical Exam Narrative: EXAM NARRATIVE: General exam no distress, does not seem sedate Neck supple Cardiovascular regular rate and rhythm Lungs clear Abdomen is soft, obese Extremities no cyanosis clubbing or edema. Decubitus unchanged Urinary Catheter Management: Khan: Cath Placed During This Visit: yes, but has since been removed by the nurse Reason for Continuing Indwelling Catheter: Acute Urinary Retention or Obstruction Urinary Catheter Date of Insertion: 03/09/21 Urinary Catheter Time of Insertion: 05:40 Date Urinary Catheter Removed: 03/04/21 Time Urinary Catheter Discontinued: 18:00 Data : 03/10/21 06:45 03/10/21 05:06 Micro: Microbiology 03/05/21 09:19 Blood Culture - Final Blood NO GROWTH AFTER 5 DAYS A&P Assessment and plan (1) Acute encephalopathy: Unknown etiology. Certainly this could be infected some by medication at home. She was on multiple medications which could cause increased confusion Ammonia has been checked and normal Psychiatric consultation appreciated She potentially could be having some withdrawal as well from her chronic narcotics or muscle relaxants. These were restarted, lower dose. She is conversant but intermittently confused currently. Appears to be now at her baseline. She appears to have significant dementia which impairs her decisional capacity. Secondary to delusions, psychosis she was initiated on Risperdal which she is tolerating well. Dose was reduced which she tolerated. Psychiatry saw her again on Lindsey 24, reiterating she does not have decisional capacity. Repeat psychiatric evaluation done today and pending Awaiting placement and guardianship. Behavior associated with dementia is improved on Risperdal. Status: Acute (2) Back pain: From my understanding she has chronic back pain. She has been getting some morphine, and Dilaudid in the emergency department. Her oxycodone was restarted at lower dose, muscle relaxant at as needed dose and monitor closely. Status: Acute (3) COVID-19 virus detected: She has tested positive for COVID-19. From her history, and her contact with a neighbor I have no idea when she had exposure, or if she is even having symptoms from this. She has become cognizant enough to relay her symptoms have perhaps been going on 3 days. She is high risk for developing severe COVID and reports she is not vaccinated. She received monoclonal antibody during this hospital stay.. Note that she has no evidence of COVID requiring oxygen therapy and was not admitted for COVID currently. She continues to remain on room air, and appears to be doing well from the standpoint. She may now come out of quarantine, as she is over 10 days from symptomatology and did not have moderate or severe disease. Status: Acute (4) Suicidal ideation: Psychiatry does not believe she is suicidal at this time. She intermittently still voices this although she is also delusional. Appreciate psychiatric consultation. She does not have decisional capacity per them. Alcohol level was less than 10. Salicylate and Tylenol level not elevated Status: Acute (5) Renal colic on right side: Recently had a renal stone with some evidence of mild obstruction. This is not visualized on current scan and urine demonstrates no evidence of infection Status: Inactive (6) WOLFE (nonalcoholic steatohepatitis): Evidence of esophageal and gastric varices are noted on CT scan. Ammonia level is normal I do not think there is any evidence for hepatic encephalopathy currently. Status: Acute (7) Alzheimer's dementia with behavioral disturbance: Patient has longstanding history of dementia, which could certainly be worsened with delirium with her current illness. Appreciate psychiatric consultation. Status: Acute Qualifiers: Alzheimer's disease onset: unspecified onset Qualified Code(s): G30.9 - Alzheimer's disease, unspecified; F02.81 - Dementia in other diseases classified elsewhere with behavioral disturbance Plan Diabetes mellitus. Continue Lantus and sliding scale Fever. Etiology of this was most likely UTI. Antibiotic was changed to Primaxin. Urine culture negative. Culture was obtained after antibiotics started. We will try to discontinue Khan again. Continue Primaxin until discharge, possibly converting to a short course of Macrobid after that. BladderScan as needed. Blood culture demonstrating likely contaminant. She did have a Khan earlier in the hospital course. MRSA PCR negative. Full code Lovenox for DVT prophylaxis Attestations Medical Necessity Statement*: Needs continued hospitalization pending placement and for IV antibiotics secondary to likely UTI in the interim. Coding Level of Care Code Acute Warehouse Order Selector for [facility] Fwd Diagnoses Acute encephalopathy G93.40 Back pain M54.9 COVID-19 virus detected U07.1 Suicidal ideation R45.851 Renal colic on right side N23 WOLFE (nonalcoholic steatohepatitis) K75.81 Alzheimer's dementia with behavioral disturbance G30.9; F02.81 Alzheimer's disease onset: unspecified onset
[2021-03-10 11:15] LABS: Glucose Point of Care 200 mg/dL (70-110)
[2021-03-10 11:25] VITALS: BP 112/71; PULSE 67; RESP 18; TEMP 36.9; O2SAT 97
[2021-03-10] MEDS: insulin lispro 100 unit/1 mL SUBCUT ×2 (11:53→20:54)
--- NOTE | 2021-03-10 12:51 | PC.NURSE ---
here and served pt paperwork.
[2021-03-10 15:44] LABS: Glucose Point of Care 168 mg/dL (70-110)
[2021-03-10 16:00] VITALS: BP 110/75; PULSE 88; RESP 16; TEMP 36.8; O2SAT 99
[2021-03-10] MEDS: enoxaparin 40 mg/0.4 mL Syringe SUBCUT (17:15)
[2021-03-10 17:28] LABS: Glucose Point of Care 205 mg/dL (70-110)
[2021-03-10 20:00] VITALS: BP 94/53; PULSE 87; RESP 18; TEMP 36.8; O2SAT 92
[2021-03-10] MEDS: tamsulosin 0.4 mg Capsule PO (20:48)
[2021-03-10] MEDS: insulin glargine 100 units/1 mL 40 UNIT SUBCUT (20:49)
[2021-03-10 20:59] LABS: Glucose Point of Care 209 mg/dL (70-110)
[2021-03-10 21:25] LABS: Glucose Point of Care 232 mg/dL (70-110)
[2021-03-11] VITALS: BP 121/60; PULSE 73; RESP 16; TEMP 37.3; O2SAT 92
[2021-03-11 06:43] LABS: Glucose Point of Care 138 mg/dL (70-110)
[2021-03-11 07:29] VITALS: BP 111/66; PULSE 86; RESP 18; TEMP 36.4; O2SAT 96
[2021-03-11 07:57] VITALS: PULSE 80; RESP 16; O2SAT 95
[2021-03-11] MEDS: FUROsemide 40 mg Tablet PO (07:57)
[2021-03-11] MEDS: atorvastatin 40 mg Tablet PO (07:57)
[2021-03-11] MEDS: pantoprazole DR 40 mg Tablet PO (07:57)
[2021-03-11] MEDS: metoprolol tartrate 25 mg Tablet PO (07:57)
[2021-03-11] MEDS: lisinopril 5 mg Tablet PO (07:57)
[2021-03-11] MEDS: potassium chloride ER 20 mEq Tablet PO (07:57)
[2021-03-11] MEDS: clopidogrel 75 mg Tablet PO (07:57)
[2021-03-11] MEDS: risperiDONE 0.25 mg Tablet PO (07:58)
[2021-03-11] MEDS: allopurinol 300 mg Tablet PO (07:58)
--- NOTE | 2021-03-11 08:54 | PM.DCS ---
Discharge Providers Date of Admission: 02/26/21 17:29 Date of Discharge: March 11, 2021 Attending Provider at Admission: Bhargav Alvarado MD Attending Provider at Discharge: Bhargav Alvarado MD Primary Care Provider: Rubi Saenz DO Diagnoses at Discharge Discharge Diagnosis (1) Acute encephalopathy: Status: Acute (2) Back pain: Status: Acute (3) COVID-19 virus detected: Status: Acute (4) Suicidal ideation: Status: Acute (5) Renal colic on right side: Status: Inactive (6) WOLFE (nonalcoholic steatohepatitis): Status: Acute (7) Alzheimer's dementia with behavioral disturbance: Status: Acute Qualifiers: Alzheimer's disease onset: unspecified onset Qualified Code(s): G30.9 - Alzheimer's disease, unspecified; F02.81 - Dementia in other diseases classified elsewhere with behavioral disturbance Reason for Visit Reason for Visit: right arm pain Hospital Course Hospital Course Yesika is a 70-year-old white female who presented to the hospital, emergency department, feeling suicidal and depressed. There were concerns regarding her memory, previous diagnosis of dementia, and erratic behavior prior to presentation. On arrival she was found to have Covid 19. She was not requiring oxygen. Monoclonal antibody was given. Ammonia level was done, which demonstrated no elevation. Medications were adjusted in case they were playing a role in her acute encephalopathy. CT head was performed which demonstrated no acute changes. Psychiatry consulted, and did not believe she was decisional. Erratic behavior in the hospital was noted as well. Risperdal was initiated. Shortly into her course it was thought she was back to baseline with her mental status but still not competent to make her own decisions. At that point decision was made to pursue guardianship. The rest of her course of hospital stay was rather uneventful. She did have a temperature elevation, and concern of UTI on urinalysis. She had had a catheter during her hospital stay. She was placed on Primaxin secondary to past history of ESBL. Ultimately urine culture demonstrated no growth. Blood culture demonstrated some contaminants. She remained afebrile during the rest of her hospital course, but secondary to concern of UTI she will finish up a course of Bactrim following the Primaxin she got inpatient from March 05 until March 11. Physical Exam Narrative: EXAM NARRATIVE: General exam conversant but confused Neck is supple Cardiovascular regular rate and rhythm Lungs clear Abdomen is soft Extremities no cyanosis clubbing or edema Urinary Catheter Management: Khan: Cath Placed During This Visit: yes, but has since been removed by the nurse Reason for Continuing Indwelling Catheter: Acute Urinary Retention or Obstruction Urinary Catheter Date of Insertion: 03/09/21 Urinary Catheter Time of Insertion: 05:40 Date Urinary Catheter Removed: 03/04/21 Time Urinary Catheter Discontinued: 18:00 Discharge Data Studies Completed and Pending Completed Studies During Hospitalization Category Date Time Status CT abdomen pelvis w con* [id number] Urgent Cat Scan 02/25/21 19:[address] head wo con* [id number] Urgent Cat Scan 02/26/21 09:[address] lumbar spine wo con* [id number] Urgent Cat Scan 02/25/21 21:01 Completed XR chest 1V portable [id number] Routine Exams 03/05/21 08:05 Completed XR chest 1V portable [id number] Urgent Exams 02/26/21 07:24 Completed XR hip BI 3-4V wo/[place] [id number] Stat Exams 02/25/21 16:31 [place] [id number] Stat Exams 02/25/21 16:34 Completed CV ankle brachial index [id number] Stat Ultrasound 02/25/21 16:49 Completed Radiology Impressions Hip/Pelvis X-Ray 02/25/21 16:31 IMPRESSION: Moderate osteoarthritis of the hips bilaterally. Humerus X-Ray 02/25/21 16:34 IMPRESSION: Rotator cuff calcification suspected consistent with calcific tendinitis. Head CT 02/26/21 09:04 IMPRESSION: 1. No acute intracranial hemorrhage or edema. 2. Nonvisualization of posterior fossa due to patient's body habitus. 3. Mild atrophy and chronic microvascular ischemic changes in the supratentorial white matter. Chest X-Ray 03/05/21 08:05 IMPRESSION: 1. Shallow inspiration with cardiomegaly. 2. Small bilateral pleural effusions. New from previous. 3. Mild bilateral perihilar interstitial thickening/infiltrates. No focal consolidation. 4. Volume loss left lower lobe with elevation left hemidiaphragm appears new from previous. Laboratory Results WBC 3.4 10^3/uL (4.0-10.0) L 03/10/21 06:45 Corrected WBC Cancelled 03/10/21 05:06 RBC 3.07 10^6/uL (4.1-5.3) L 03/10/21 06:45 Hgb 9.6 g/dL (11.5-15.3) L 03/10/21 06:45 Hct 32.1 % (37.0-47.0) L 03/10/21 06:45 MCV 104.6 fl (81-99) H 03/10/21 06:45 MCH 31.3 pg (28.0-34.0) 03/10/21 06:45 MCHC 29.9 g/dL (30.0-36.0) L 03/10/21 06:45 RDW 14.9 % (12.1-15.1) 03/10/21 06:45 Plt Count 115 10^3/cmm (130-400) L 03/10/21 06:45 MPV 10.2 fL (7.4-10.4) 03/10/21 06:45 Gran % Cancelled 03/10/21 05:06 Neut % (Auto) 64.7 % 03/10/21 06:45 Lymph % (Auto) 21.0 % 03/10/21 06:45 [place] % (Auto) 10.4 % 03/10/21 06:45 Eos % (Auto) 3.3 % 03/10/21 06:45 Baso % (Auto) 0.3 % 03/10/21 06:45 Neut # (Auto) 2.19 10^3/uL (1.8-7.7) 03/10/21 06:45 Lymph # (Auto) 0.7 10^3/uL (0.8-4.8) L 03/10/21 06:45 [place] # (Auto) 0.4 10^3/uL (0.2-0.9) 03/10/21 06:45 Eos # (Auto) 0.1 10^3/uL (0.0-0.8) 03/10/21 06:45 Baso # (Auto) 0.0 10^3/uL (0.0-0.1) 03/10/21 06:45 Absolute Gran (auto) Cancelled 03/10/21 05:06 Nucleated RBC % (auto) 0 % 03/10/21 06:45 Nucleated RBCs # 0.0 /100WBC 03/10/21 06:45 PT 14.70 SECONDS (12.1-14.9) 02/26/21 09:10 INR 1.12 (0.8-1.2) 02/26/21 09:10 Sodium 133 mmol/L (136-145) L 03/10/21 05:06 Potassium 3.7 mmol/L (3.5-5.1) 03/10/21 05:06 Chloride 106 mmol/L (98-107) 03/10/21 05:06 Carbon Dioxide 21 mmol/L (22-29) L 03/10/21 05:06 Anion Gap 9.7 (5-19) 03/10/21 05:06 BUN 15 mg/dL (8-23) 03/10/21 05:06 Creatinine 0.6 mg/dL (0.5-0.9) 03/10/21 05:06 GFR Calculation Not Reportable 03/10/21 05:06 Glucose 111 mg/dL (65-115) 03/10/21 05:06 POC Glucose 138 mg/dL (70-110) H 03/11/21 06:39 Calculated Osmolality 278 mOsm/kg (285-295) L 03/10/21 05:06 Calcium 8.3 mg/dL (8.5-10.5) L 03/10/21 05:06 Magnesium 1.6 mg/dL (1.7-2.3) L 03/01/21 10:45 Total Bilirubin 1.2 mg/dL (0.15-1.2) 03/07/21 05:55 AST 14 U/L (0-32) 03/07/21 05:55 ALT 9 U/L (0-33) 03/07/21 05:55 Alkaline Phosphatase 228 IU/L (35-105) H 03/07/21 05:55 Ammonia 28 umol/L (11-51) 02/26/21 09:10 Creatine Kinase 103 U/L (26-192) 02/25/21 18:12 Troponin T Baseline 16 ng/L (0-10) H 02/25/21 18:12 Troponin T 120 Minute 12.70 ng/L (0-10) H 02/25/21 20:03 Delta Troponin T -3.30 ABS# (0-10) L 02/25/21 20:03 Troponin T Hi Sens 6Hr 15.77 ng/L (0-10) H 02/25/21 23:46 Troponin T Hi Sens 6Hr Delta -0.23 ng/L (0-12) L 02/25/21 23:46 C-Reactive Protein 46.7 mg/L (0.0-4.9) H 02/25/21 18:12 Total Protein 5.6 g/dL (6.6-8.7) L 03/07/21 05:55 Albumin 2.3 g/dL (3.5-5.2) L 03/07/21 05:55 Globulin 3.3 g/dL (1.3-4.6) 03/07/21 05:55 Vitamin B12 913 pg/mL (232-1245) 02/26/21 09:10 TSH 2.12 uIU/mL (0.27-4.20) 02/25/21 23:46 Urine Color Dark yellow (Yellow) 03/05/21 10:30 Urine Appearance Cloudy (CLEAR) 03/05/21 10:30 Urine pH 6.5 (5-7) 03/05/21 10:30 Ur Specific [place] 1.015 (1.005-1.030) 03/05/21 10:30 Urine Protein Neg (Negative) 03/05/21 10:30 Urine Glucose (UA) 1+ (Normal) H 03/05/21 10:30 Urine Ketones 1+ (Negative) H 03/05/21 10:30 Urine Blood 2+ (Negative) H 03/05/21 10:30 Urine Nitrate Negative (Negative) 03/05/21 10:30 Urine Bilirubin 1+ (Negative) H 03/05/21 10:30 Urine Urobilinogen 8 mg/dL (Negative) H 03/05/21 10:30 Ur Leukocyte Esterase 2+ (Negative) H 03/05/21 10:30 Urine RBC 5-10 /hpf (0-2) H 03/05/21 10:30 Urine WBC 55-80 /hpf (0-5) H 03/05/21 10:30 Ur Squamous Epith Cells 5-10 /hpf (0-5) H 03/05/21 10:30 Amorphous Sediment Not Reportable 03/05/21 10:30 Urine Bacteria Trace /hpf (NONE) 03/05/21 10:30 Salicylates < 0.3 mg/dL (3-10) L 02/26/21 09:10 Urine Opiates Screen Positive ng/mL (Negative) H 02/25/21 22:24 Acetaminophen < 5.0 ug/mL (10-30) L 02/26/21 09:10 Ur Barbiturates Screen Negative ng/mL (Negative) 02/25/21 22:24 Ur Phencyclidine Scrn Negative ng/mL (Negative) 02/25/21 22:24 Ur Amphetamines Screen Negative ng/mL (Negative) 02/25/21 22:24 U Benzodiazepines Scrn Negative ng/mL (Negative) 02/25/21 22:24 Urine Cocaine Screen Negative ng/mL (Negative) 02/25/21 22:24 U Marijuana (THC) Screen Negative ng/mL (Negative) 02/25/21 22:24 Ethyl Alcohol < 10 mg/dL (0-10) 02/25/21 23:46 SARS-CoV-2 Ag (Rapid) Positive (Negative) H 02/26/21 00:15 Vitals Last Vital Signs Temp 97.5 F L 03/11/21 07:29 Pulse 80 03/11/21 07:57 Resp 16 03/11/21 07:57 BP 111/66 03/11/21 07:29 Pulse Ox 95 03/11/21 07:57 Discharge Plan Discharge Patient Disposition: Xfer SNF Condition: Stable Prescriptions: New furosemide 40 mg Tablet 40 mg PO DAILY@0800 Qty: 30 0RF Lantus U-100 Insulin 100 unit/mL Solution 40 unit SUBCUT BEDTIME Qty: 100 0RF risperidone 0.25 mg Tablet 0.25 mg PO BID Qty: 60 0RF metoprolol tartrate 25 mg Tablet 25 mg PO BID@0900,2100 Qty: 60 0RF Macrobid 100 mg capsule 100 mg PO BID 5 Days Qty: 10 0RF Rx Instructions: must administer with a meal/food oxycodone 5 mg Tablet 5 mg PO Q6H PRN (Reason: Severe Pain) Qty: 30 0RF Continued (DME) Lift chair See Rx Instructions .Route .MEDSUPPLY Qty: 1 0RF Rx Instructions: As directed pantoprazole 40 mg tablet,delayed release (DR/EC) 40 mg PO BID Qty: 60 3RF (DME) Diabetic Shoes See Rx Instructions .ROUTE .MEDSUPPLY Qty: 1 0RF Rx Instructions: As directed by [facility] [employer] [facility] with 3 pairs of inserts ([facility] [place] insulin syr/ndl U100 half juanito 0.3 mL 30 gauge x 1/2 syringe See Rx Instructions .ROUTE .MEDSUPPLY Qty: 100 3RF Rx Instructions: As directed ([facility] [place] lancets [Accu-Chek Softclix Lancets[place] [facility] [place]ructions .ROUTE .MEDSUPPLY Qty: 200 2RF Rx Instructions: As directed ([facility] [place] Blood Glucose Test Strip See Rx Instructions .ROUTE .MEDSUPPLY Qty: 100 2RF Rx Instructions: testing three times daily ([facility] [place]) lancets Misc See Rx Instructions .ROUTE .MEDSUPPLY Qty: 100 2RF Rx Instructions: three times daily tamsulosin [Flomax] 0.4 mg capsule 0.4 mg PO QPM Qty: 7 0RF atorvastatin 40 mg Tablet 40 mg PO DAILY 0RF clopidogrel 75 mg Tablet 75 mg PO DAILY 0RF lisinopril 5 mg Tablet 5 mg PO DAILY 0RF Miralax 17 gram/dose Powder 17 g PO DAILY 0RF ProAir HFA 90 mcg/actuation Hfa Aerosol Inhaler 2 puff INHALATION QID PRN (Reason: SHORTNESS OF BREATH) 0RF cyclobenzaprine 5 mg Tablet 5 mg PO TID PRN (Reason: Muscle Spasm) 0RF allopurinol 300 mg tablet 300 mg PO DAILY 0RF nitroglycerin 0.4 mg tablet, sublingual 0.4 mg sublingual Q5M PRN (Reason: Chest Pain) 0RF Changed Humalog KwikPen Insulin 100 unit/mL insulin pen 10 unit SUBCUT TID Qty: 0 0RF Rx Instructions: WITH MEALS potassium chloride 20 mEq tablet extended release 20 meq PO DAILY Qty: 0 0RF Discontinued sucralfate 1 gram Tablet 1 g PO QID 0RF oxycodone 15 mg Tablet 15 mg PO BID PRN (Reason: Pain) 0RF metoprolol tartrate [Lopressor] 50 mg Tablet 50 mg PO BID 0RF pregabalin [Lyrica] 25 mg Capsule 25 mg PO BEDTIME 0RF Victoza 2-Gunner 0.6 mg/0.1 mL (18 mg/3 mL) Pen Injector 1.8 mg SUBCUT DAILY 0RF meclizine 25 mg tablet 12.5 mg PO Q6H PRN (Reason: Dizziness) 0RF Levemir U-100 Insulin 100 unit/mL solution 60 unit SUBCUT BID 0RF furosemide [Lasix] 80 mg tablet 80 mg PO DAILY 0RF Discharge Orders: Discharge Order (Routine); Ordered 03/11/21 Ordered By: Bhargav Alvarado Referrals: Rubi Saenz DO [Primary Care Provider] - 1-3 days Discharge Diet: Advance as tolerated and Resume prior tube feeds Patient Instructions: Depression, Metoprolol (By mouth), Furosemide (By mouth), Oxycodone/Acetaminophen (By mouth), Risperidone (By mouth), Nitrofurantoin Combination (By mouth), Insulin Glargine (By injection), Hypoglycemia, Alzheimer Disease (DC), Peripheral Vascular Disease (DC), Hepatic Encephalopathy (DC), Back Pain (ED) Activity Restrictions/Additional Instructions: Follow-up with [facility] care provider [facility] in 3 days Discharge Attestations Time Spent in Discharge Care*: greater than 30 min Status at Discharge: Cognitive status at discharge: cognitively intact, Behavioral status at discharge: cooperative, Quality Metrics Clinical Quality Measures [ No reported AMI, CVA or VTE this stay] Coding Level of Care Code Acute Chg FW DC note Diagnoses Acute encephalopathy G93.40 Back pain M54.9 COVID-19 virus detected U07.1 Suicidal ideation R45.851 Renal colic on right side N23 WOLFE (nonalcoholic steatohepatitis) K75.81 Alzheimer's dementia with behavioral disturbance G30.9; F02.81 Alzheimer's disease onset: unspecified onset
--- NOTE | 2021-03-11 09:58 | PC.NURSE ---
Report called to MEME Valdez, at [facility].
[2021-03-11 11:25] LABS: Glucose Point of Care 209 mg/dL (70-110)
--- NOTE | 2021-03-11 11:33 | PC.SOCIAL ---
Addendum entered by Whitney Earl RN 03/11/21 12:09: IM given by mistake since Observation status although no appeal requested as listed below. Original Note: IM follow up explained to state appointed temporary guardian Byrant Parson. He verbalized understanding and does not feel there is a need to appeal.
== END 2021-03-11 11:00 | disposition skilled nursing facility (03) ==
LOC: ER 02-26 09:08 → ER IP 02-27 06:25 → MEDSURG 02-27 06:25
PROVIDERS: Emergency Medicine; Family Medicine; Internal Medicine; Admitting Provider Internal Medicine; Emergency Provider Family Medicine; PCP Family Medicine; Visit Provider Internal Medicine
DX: U07.1 COVID-19 (principal); G93.40 Encephalopathy, unspecified; M54.9 Dorsalgia, unspecified; R45.851 Suicidal ideations; N23 Unspecified renal colic; K75.81 Nonalcoholic steatohepatitis (NASH); G30.9 Alzheimer's disease, unspecified; F02.81 Dementia in other diseases classified elsewhere, unspecified severity, with behavioral disturbance; E11.42 Type 2 diabetes mellitus with diabetic polyneuropathy; Z79.4 Long term (current) use of insulin; F41.9 Anxiety disorder, unspecified; I25.10 Atherosclerotic heart disease of native coronary artery without angina pectoris; F32.9 Major depressive disorder, single episode, unspecified; E11.22 Type 2 diabetes mellitus with diabetic chronic kidney disease; I13.0 Hypertensive heart and chronic kidney disease with heart failure and stage 1 through stage 4 chronic kidney disease, or unspecified chronic kidney disease; N18.9 Chronic kidney disease, unspecified; I50.9 Heart failure, unspecified; E78.5 Hyperlipidemia, unspecified; E66.01 Morbid (severe) obesity due to excess calories; Z68.36 Body mass index [BMI] 36.0-36.9, adult; Z82.49 Family history of ischemic heart disease and other diseases of the circulatory system; Z87.891 Personal history of nicotine dependence; I73.9 Peripheral vascular disease, unspecified
CPT/HCPCS: 36415; 36416; 51702; 51798; 70450; 71045; 72131; 73060; 73521; 73522; 74177; 80048; 80053; 80306; 80307; 81001; 81003; 82140; 82550; 82607; 82962; 83735; 84443; 84484; 85025; 85610; 86140; 87040; 87086; 87150; 87205; 87426; 87641; 93005; 93922; 94640; 96365; 96366; 96367; 96372; 96375; 96376; 97110; 97116; 97162; 97530; 99285; G0378; J0743; J1170; J1630; J1650; J1815 ×2; J2270; J2405; J3475; J7030; Q9967

== ENCOUNTER 2021-06-24 15:51 | Inpatient (IN) | payer MEDICARE, MEDICAID, SELFPAY ==
[2021-06-24] VITALS (10 sets, daily range): BP systolic 87–175; BP diastolic 58–134; PULSE 101–125; RESP 14–20; TEMP 38.3; O2SAT 89–100; BMI 40.6
--- NOTE | 2021-06-24 16:07 | ECG_ITS ---
[facility] Test Date: 2021-06-24 Pat Name: Yesika Sanchez Department: Room: Gender: Female Legal Recruiter: : 1950 Requested By: Anthony Mccabe Order Number: [id number] Mariaa MD: Chelsea Brewer M.D. Measurements Intervals [place] Rate: 103 P: 51 NH: 198 QRS: -57 QRSD: 108 T: 54 QT: 346 QTc: 454 Interpretive Statements SINUS TACHYCARDIA WITH OCCASIONAL SUPRAVENTRICULAR PREMATURE COMPLEXES LEFT AXIS DEVIATION [QRS AXIS < -30] Compared to ECG 02/26/2021 01:07:41 Left-axis deviation now present Ventricular premature complex(es) no longer present Left anterior fascicular block no longer present ST (T wave) deviation no longer present Electronically Signed On 06-24-2021 20:16:44 CDT by Chelsea Brewer M.D. [id number]
--- NOTE | 2021-06-24 16:07 | XRR_ITS ---
PROCEDURE INFORMATION: Exam: XR Chest Exam date and time: 06/24/2021 4:13 PM Age: 71 years old Clinical indication: Cough; Patient HX: History--patient AMS, barely conscious, would not or could not tilt head back, confused; Additional info: Dyspnea/cough TECHNIQUE: Imaging protocol: XR of the chest. Views: 1 view. COMPARISON: CR XR chest 1V portable [id number] 03/05/2021 8:24 AM FINDINGS: Lungs: Minor scarring at the lung bases. No consolidation. Pleural spaces: Unremarkable. No pleural effusion. No pneumothorax. Heart/Mediastinum: Unremarkable. No cardiomegaly. Bones/joints: Visualized osseous structures are intact. XR/XR chest 1V portable [id number] IMPRESSION: No acute findings.
--- NOTE | 2021-06-24 16:33 | CTR_ITS ---
PROCEDURE INFORMATION: Exam: CT Head Without Contrast Exam date and time: 06/24/2021 5:26 PM Age: 71 years old Clinical indication: Altered mental status/memory loss; Additional info: AMS TECHNIQUE: Imaging protocol: Computed tomography of the head without contrast. Radiation optimization: All CT scans at this facility use at least one of these dose optimization techniques: automated exposure control; mA and/or kV adjustment per patient size (includes targeted exams where dose is matched to clinical indication); or iterative reconstruction. COMPARISON: CT head wo con* [id number] 02/26/2021 11:23 AM RADIATION DOSE METRICS: Total DLP (mGy-cm): 1188.74 FINDINGS: Brain: Minimal chronic cerebral white matter disease still likely. No interval edema in the brain. Still no intracranial hemorrhage. Cerebral ventricles: Continued mild enlargement of the 3rd and lateral ventricles compared to the normal 4th ventricle. Paranasal sinuses: No air-fluid levels or significant mucosal thickening in the visualized paranasal sinuses representing interval improvement. Mastoid air cells: Continued left mastoid disease. Right mastoids still clear. Bones/joints: Still no skull fracture. Soft tissues: Still no scalp hematoma. CT/CT head wo con* [id number] IMPRESSION: 1. No acute intracranial finding. 2. Left mastoid disease again evident. Interval improvement in the chronic sinus disease.
--- NOTE | 2021-06-24 16:43 | W.ED.AMS ---
Documented by User: Anthony Mcgill DO 06/24/21 18:17 HPI - Altered Mental Status General: Chief Complaint: Altered Mental Status Stated Complaint: AMS/ CONFUSED Time Seen by Provider: 06/24/21 15:52 Source: patient Mode of arrival: ambulatory Limitations: no limitations History of Present Illness: 71-year-old female brought in by EMS. I did not talk to EMS I did talk to the nurse the only report we got was a previous H&P from an earlier admission to our facility and then a complaint of swelling and redness in her legs and altered mental status beyond that patient is not able to give us any specific history. He does have a history of dementia. He also has had problems with panniculitis in the past. MD complaint: altered mental status and confusion Review of Systems General: Reports: ROS unobtainable due to mental status PFSH ED PFSH: Medical History Anxiety ASHD (arteriosclerotic heart disease) Back pain Cellulitis of right lower extremity CHF (congestive heart failure) CKD (chronic kidney disease) Coronary artery disease Cough DDD (degenerative disc disease) Decreased hearing of both ears Depression Diabetes Diabetic polyneuropathy Duodenal ulcer Dyslipidemia Edema History of GI bleed Hypertension Incarcerated incisional hernia Joint pain Left hamstring muscle strain Morbid obesity Morbilliform rash Onychomycosis PUD (peptic ulcer disease) Recurrent UTI Renal calculus Right leg pain Urinary tract infection Vertigo Vitamin B deficiency Vitamin D deficiency Wound of right lower extremity Surgical History H/O esophagogastroduodenoscopy (~06/05/19) H/O hernia repair History of coronary artery stent placement Cardiac cath on 12/13/2016 with stent placement to LAD Hx of section 3 Hx of cholecystectomy Hx of tonsillectomy S/P appendectomy S/P plastic surgery 2019, panniculectomy Family History Mother CAD (coronary artery disease) Other Hypertension Social History Quit status (tobacco): has quit using tobacco Former quit date comment: 2.5 PPD x 40 yrs Alcohol intake: unknown Physical Exam Const: EXAM LIMITATIONS: altered mental status GENERAL APPEARANCE: lethargic ORIENTATION/CONSCIOUSNESS: Yes lethargic HENMT: COMMON NORMALS: normocephalic and atraumatic HEAD & SCALP: normocephalic and atraumatic Resp: AUSCULTATION: rhonchi, wheezes and diminished lung sounds Cardio: RATE: tachycardic GI: PALPATION: Yes Tenderness to palpation present (GI) and No Guarding due to palpation present (GI) Neuro: SENSORIUM/ORIENTATION: Yes lethargic Course Vital Signs: Vital signs: Vital Signs Temperature 99.8 F H 06/27/21 23:52 Pulse Rate 97 06/27/21 23:52 Respiratory Rate 18 06/27/21 23:52 Blood Pressure 110/64 06/27/21 23:52 Pulse Oximetry 91 06/27/21 23:52 MDM - Altered Mental Status Medical Decision Making Care signed out to Dr. Lowry at change of shift. See final notes for diagnosis and disposition. Lab Data : 06/28/21 03:20 06/28/21 03:20 Radiology Impressions Chest X-Ray 06/24/21 16:07 IMPRESSION: No acute findings. Head CT 06/24/21 16:33 IMPRESSION: 1. No acute intracranial finding. 2. Left mastoid disease again evident. Interval improvement in the chronic sinus disease. Abdomen/Pelvis CT 06/24/21 18:16 IMPRESSION: 1. No obvious acute disease. Numerous chronic abnormalities still present, including probable liver cirrhosis and apparent portal venous hypertension. 2. No significant change in the 2.6 cm left adrenal mass. Suggestion of evaluation of this mass at the time of follow-up renal MRI. 3. Possible interval slight enlargement of the 5.5 cm right lower renal mass containing higher than water density. Smaller left renal mass mass also noted possibly containing higher than water density as before. If not previously performed, recommend non-emergent follow-up MRI without and with contrast. A few renal stones still present. 4. Interval appearance of a small gas bubble in the urinary bladder raising the possibility of its recent catheterization. 5. Cholecystectomy still likely. Questionable edema or bruising in the left hip region. Other findings detailed above. COMMENTS: Consistent with the [place] [employer]'s Incidental Findings Committee white paper (J Am Valentín Radiol 2018): Any incidental renal lesion less than 1 cm or classified as too small to characterize, or any incidental cystic renal lesion characterized as simple-appearing, is likely benign. No follow-up imaging is recommended for these lesions per consensus recommendations based on imaging criteria. Abdomen Ultrasound 06/25/21 08:57 IMPRESSION: No peritoneal ascites. Shoulder X-Ray 06/26/21 09:09 Impression: 1. Calcification surrounding the right humeral head consistent with adhesive capsulitis. 2. Osteoarthritic change of the right glenohumeral joint. Laboratory Results WBC 12.4 10^3/uL (4.0-10.0) H 06/24/21 17:45 RBC 3.65 10^6/uL (4.1-5.3) L 06/24/21 17:45 Hgb 12.4 g/dL (11.5-15.3) 06/24/21 17:45 Hct 39.0 % (37.0-47.0) 06/24/21 17:45 MCV 106.8 fl (81-99) H 06/24/21 17:45 MCH 34.0 pg (28.0-34.0) 06/24/21 17:45 MCHC 31.8 g/dL (30.0-36.0) 06/24/21 17:45 RDW 16.7 % (12.1-15.1) H 06/24/21 17:45 Plt Count 90 10^3/cmm (130-400) L 06/24/21 17:45 MPV 10.1 fL (7.4-10.4) 06/24/21 17:45 Neut % (Auto) 89.1 % 06/24/21 17:45 Lymph % (Auto) 4.5 % 06/24/21 17:45 Gordon % (Auto) 5.6 % 06/24/21 17:45 Eos % (Auto) 0.0 % 06/24/21 17:45 Baso % (Auto) 0.2 % 06/24/21 17:45 Neut # (Auto) 11.00 10^3/uL (1.8-7.7) H 06/24/21 17:45 Lymph # (Auto) 0.6 10^3/uL (0.8-4.8) L 06/24/21 17:45 Gordon # (Auto) 0.7 10^3/uL (0.2-0.9) 06/24/21 17:45 Eos # (Auto) 0.0 10^3/uL (0.0-0.8) 06/24/21 17:45 Baso # (Auto) 0.0 10^3/uL (0.0-0.1) 06/24/21 17:45 Nucleated RBC % (auto) 0 % 06/24/21 17:45 Nucleated RBCs # 0.0 /100WBC 06/24/21 17:45 Specimen Type Arterial 06/24/21 20:06 Sample Site Radial, left 06/24/21 20:06 ABG pH 7.50 (7.35-7.45) H 06/24/21 20:06 ABG pCO2 40.4 mmHg (35-45) 06/24/21 20:06 ABG pO2 102.0 mmHg (80.0-100.0) H 06/24/21 20:06 ABG HCO3 31.4 mmol/L (22-26) H 06/24/21 20:06 ABG Base Excess 7.6 mmol/L (-2.0-2.0) H 06/24/21 20:06 See Test Pos 06/24/21 20:06 Hematocrit 35.9 % (37-47) L 06/24/21 20:06 O2 Delivery Device Nc 06/24/21 20:06 O2 Liters/Min 3.0 % 06/24/21 20:06 Records Management Specialist ID [place] 06/24/21 20:06 Sodium 139 mmol/L (136-145) 06/24/21 17:45 Potassium 4.0 mmol/L (3.5-5.1) 06/24/21 17:45 Chloride 99 mmol/L (98-107) 06/24/21 17:45 Carbon Dioxide 26 mmol/L (22-29) 06/24/21 17:45 Anion Gap 18.0 (5-19) 06/24/21 17:45 BUN 30 mg/dL (8-23) H 06/24/21 17:45 Creatinine 0.9 mg/dL (0.5-0.9) 06/24/21 17:45 GFR Calculation Not Reportable 06/24/21 17:45 Glucose 95 mg/dL (65-115) 06/24/21 17:45 Calculated Osmolality 294 mOsm/kg (285-295) 06/24/21 17:45 Lactic Acid 1.7 mmol/L (0.5-2.2) 06/24/21 17:45 Calcium 10.3 mg/dL (8.5-10.5) 06/24/21 17:45 Total Bilirubin 1.2 mg/dL (0.15-1.2) 06/24/21 17:45 AST 52 U/L (0-32) H 06/24/21 17:45 ALT 37 U/L (0-33) H 06/24/21 17:45 Alkaline Phosphatase 385 IU/L (35-105) H 06/24/21 17:45 Ammonia 67 umol/L (11-51) H 06/24/21 17:45 Creatine Kinase 76 U/L (26-192) 06/24/21 20:10 CK-MM (CK-3) Cancelled 06/24/21 20:10 CK-MB (CK-2) Cancelled 06/24/21 20:10 CK-BB (CK-1) Cancelled 06/24/21 20:10 Creatine Kinase Interp Cancelled 06/24/21 20:10 Troponin T Baseline 26 ng/L (0-10) H 06/24/21 17:45 Troponin T 120 Minute 28.79 ng/L (0-10) H 06/24/21 20:00 Delta Troponin T 2.79 ABS# (0-10) 06/24/21 20:00 NT-Pro-B Natriuret Pep 216 pg/mL (0-125) H 06/24/21 20:00 Total Protein 8.1 g/dL (6.6-8.7) 06/24/21 17:45 Albumin 3.8 g/dL (3.5-5.2) 06/24/21 17:45 Globulin 4.3 g/dL (1.3-4.6) 06/24/21 17:45 Lipase 11 U/L (13-60) L 06/24/21 17:45 Vitamin B12 542 pg/mL (232-1245) 06/24/21 20:10 Folate 9.3 ng/mL (4.8-37.3) 06/24/21 20:10 TSH 0.96 uIU/mL (0.27-4.20) 06/24/21 20:10 Free T4 1.40 ng/dL (0.82-1.77) 06/24/21 20:10 Urine Color Yellow (Yellow) 06/24/21 18:00 Urine Appearance Clear (CLEAR) 06/24/21 18:00 Urine pH 8 (5-7) H 06/24/21 18:00 Ur Specific [place] 1.010 (1.005-1.030) 06/24/21 18:00 Urine Protein Neg (Negative) 06/24/21 18:00 Urine Glucose (UA) Norm (Normal) 06/24/21 18:00 Urine Ketones Negative (Negative) 06/24/21 18:00 Urine Blood 2+ (Negative) H 06/24/21 18:00 Urine Nitrate Negative (Negative) 06/24/21 18:00 Urine Bilirubin Neg (Negative) 06/24/21 18:00 Prot Sulfosalicylic Acd Negative (Negative) 06/24/21 18:00 Urine Urobilinogen 1 mg/dL (Negative) H 06/24/21 18:00 Ur Leukocyte Esterase Negative (Negative) 06/24/21 18:00 Urine RBC 0-4 /hpf (0-2) H 06/24/21 18:00 Urine WBC None /hpf (0-5) 06/24/21 18:00 Ur Squamous Epith Cells 0-4 /hpf (0-5) H 06/24/21 18:00 Amorphous Sediment Not Reportable 06/24/21 18:00 Urine Bacteria None /hpf (NONE) 06/24/21 18:00 Urine Opiates Screen Negative ng/mL (Negative) 06/24/21 18:00 Ur Barbiturates Screen Negative ng/mL (Negative) 06/24/21 18:00 Ur Phencyclidine Scrn Negative ng/mL (Negative) 06/24/21 18:00 Ur Amphetamines Screen Negative ng/mL (Negative) 06/24/21 18:00 U Benzodiazepines Scrn Negative ng/mL (Negative) 06/24/21 18:00 Urine Cocaine Screen Negative ng/mL (Negative) 06/24/21 18:00 U Marijuana (THC) Screen Negative ng/mL (Negative) 06/24/21 18:00 Hepatitis A IgM Ab Non-reactive (Nonreactive) 06/24/21 20:10 Hep Bs Antigen Non-reactive (Nonreactive) 06/24/21 20:10 Hep B Core IgM Ab Non-reactive (Nonreactive) 06/24/21 20:10 Hepatitis C Antibody Non-reactive (Nonreactive) 06/24/21 20:10 Influenza Type A Ag Negative (Negative) 06/24/21 20:35 Influenza Type B Ag Negative (Negative) 06/24/21 20:35 SARS-CoV-2 Ag (Rapid) Negative (Negative) 06/24/21 20:35 Discharge Plan Discharge Patient Disposition: Admitted As Inpatient Admit Provider: Sherri Rivas Clinical Impression: Encephalopathy, Sepsis, Cellulitis Condition: Stable Sign Out Sign Out Data: Patient Sign Out occurred on 06/24/21 at 18:24. Patient's care was discussed, and care was transferred from to Santiago Lowry MD. Coding Level of Care Code ED Transmissions Systems Operator for Chg Fwd Exam Detailed Documented by User: Santiago Lowry MD 06/28/21 05:11 HPI - Altered Mental Status General: Chief Complaint: Altered Mental Status Stated Complaint: AMS/ CONFUSED Time Seen by Provider: 06/24/21 15:52 PFSH ED PFSH: Medical History Anxiety ASHD (arteriosclerotic heart disease) Back pain Cellulitis of right lower extremity CHF (congestive heart failure) CKD (chronic kidney disease) Coronary artery disease Cough DDD (degenerative disc disease) Decreased hearing of both ears Depression Diabetes Diabetic polyneuropathy Duodenal ulcer Dyslipidemia Edema History of GI bleed Hypertension Incarcerated incisional hernia Joint pain Left hamstring muscle strain Morbid obesity Morbilliform rash Onychomycosis PUD (peptic ulcer disease) Recurrent UTI Renal calculus Right leg pain Urinary tract infection Vertigo Vitamin B deficiency Vitamin D deficiency Wound of right lower extremity Surgical History H/O esophagogastroduodenoscopy (~06/05/19) H/O hernia repair History of coronary artery stent placement Cardiac cath on 12/13/2016 with stent placement to LAD Hx of section 3 Hx of cholecystectomy Hx of tonsillectomy S/P appendectomy S/P plastic surgery 2019, panniculectomy Family History Mother CAD (coronary artery disease) Other Hypertension Social History Quit status (tobacco): has quit using tobacco Former quit date comment: 2.5 PPD x 40 yrs Alcohol intake: unknown Course Vital Signs: Vital signs: Vital Signs Temperature 99.8 F H 06/27/21 23:52 Pulse Rate 97 06/27/21 23:52 Respiratory Rate 18 06/27/21 23:52 Blood Pressure 110/64 06/27/21 23:52 Pulse Oximetry 91 06/27/21 23:52 MDM - Altered Mental Status Medical Decision Making Care signed out to Dr. Lowry at change of shift. See final notes for diagnosis and disposition. Patient care handoff received from Dr. Mcgill pending completion of ED evaluation. Laboratory studies notable for leukocytosis, hemoglobin normal with macrocytic cells. Metabolic panel without acute electrolyte derangement to explain symptoms, there is transaminitis of uncertain etiology in addition to elevated ammonia. Delta troponin is negative. Urinalysis not concerning for urinary tract infection. Head CT negative for intracranial pathology to explain symptoms. Chest x-ray without lobar consolidation or pneumonia. CT abdomen pelvis with evidence of cirrhosis and renal mass in addition to multiple other findings requiring further outpatient management. The patient is encephalopathic which apparently is significantly different from her baseline. I am unsure of exactly the etiology. She does have panniculitis with questionable superinfection. Antibiotics given. Admitted for further management and investigation. Santiago Lowry MD Emergency Medicine Lab Data : 06/28/21 03:20 06/28/21 03:20 Radiology Impressions Chest X-Ray 06/24/21 16:07 IMPRESSION: No acute findings. Head CT 06/24/21 16:33 IMPRESSION: 1. No acute intracranial finding. 2. Left mastoid disease again evident. Interval improvement in the chronic sinus disease. Abdomen/Pelvis CT 06/24/21 18:16 IMPRESSION: 1. No obvious acute disease. Numerous chronic abnormalities still present, including probable liver cirrhosis and apparent portal venous hypertension. 2. No significant change in the 2.6 cm left adrenal mass. Suggestion of evaluation of this mass at the time of follow-up renal MRI. 3. Possible interval slight enlargement of the 5.5 cm right lower renal mass containing higher than water density. Smaller left renal mass mass also noted possibly containing higher than water density as before. If not previously performed, recommend non-emergent follow-up MRI without and with contrast. A few renal stones still present. 4. Interval appearance of a small gas bubble in the urinary bladder raising the possibility of its recent catheterization. 5. Cholecystectomy still likely. Questionable edema or bruising in the left hip region. Other findings detailed above. COMMENTS: Consistent with the [place] [employer]'s Incidental Findings Committee white paper (J Am Valentín Radiol 2018): Any incidental renal lesion less than 1 cm or classified as too small to characterize, or any incidental cystic renal lesion characterized as simple-appearing, is likely benign. No follow-up imaging is recommended for these lesions per consensus recommendations based on imaging criteria. Abdomen Ultrasound 06/25/21 08:57 IMPRESSION: No peritoneal ascites. Shoulder X-Ray 06/26/21 09:09 Impression: 1. Calcification surrounding the right humeral head consistent with adhesive capsulitis. 2. Osteoarthritic change of the right glenohumeral joint. Laboratory Results WBC 12.4 10^3/uL (4.0-10.0) H 06/24/21 17:45 RBC 3.65 10^6/uL (4.1-5.3) L 06/24/21 17:45 Hgb 12.4 g/dL (11.5-15.3) 06/24/21 17:45 Hct 39.0 % (37.0-47.0) 06/24/21 17:45 MCV 106.8 fl (81-99) H 06/24/21 17:45 MCH 34.0 pg (28.0-34.0) 06/24/21 17:45 MCHC 31.8 g/dL (30.0-36.0) 06/24/21 17:45 RDW 16.7 % (12.1-15.1) H 06/24/21 17:45 Plt Count 90 10^3/cmm (130-400) L 06/24/21 17:45 MPV 10.1 fL (7.4-10.4) 06/24/21 17:45 Neut % (Auto) 89.1 % 06/24/21 17:45 Lymph % (Auto) 4.5 % 06/24/21 17:45 Gordon % (Auto) 5.6 % 06/24/21 17:45 Eos % (Auto) 0.0 % 06/24/21 17:45 Baso % (Auto) 0.2 % 06/24/21 17:45 Neut # (Auto) 11.00 10^3/uL (1.8-7.7) H 06/24/21 17:45 Lymph # (Auto) 0.6 10^3/uL (0.8-4.8) L 06/24/21 17:45 Gordon # (Auto) 0.7 10^3/uL (0.2-0.9) 06/24/21 17:45 Eos # (Auto) 0.0 10^3/uL (0.0-0.8) 06/24/21 17:45 Baso # (Auto) 0.0 10^3/uL (0.0-0.1) 06/24/21 17:45 Nucleated RBC % (auto) 0 % 06/24/21 17:45 Nucleated RBCs # 0.0 /100WBC 06/24/21 17:45 Specimen Type Arterial 06/24/21 20:06 Sample Site Radial, left 06/24/21 20:06 ABG pH 7.50 (7.35-7.45) H 06/24/21 20:06 ABG pCO2 40.4 mmHg (35-45) 06/24/21 20:06 ABG pO2 102.0 mmHg (80.0-100.0) H 06/24/21 20:06 ABG HCO3 31.4 mmol/L (22-26) H 06/24/21 20:06 ABG Base Excess 7.6 mmol/L (-2.0-2.0) H 06/24/21 20:06 See Test Pos 06/24/21 20:06 Hematocrit 35.9 % (37-47) L 06/24/21 20:06 O2 Delivery Device Nc 06/24/21 20:06 O2 Liters/Min 3.0 % 06/24/21 20:06 Records Management Specialist ID [place] 06/24/21 20:06 Sodium 139 mmol/L (136-145) 06/24/21 17:45 Potassium 4.0 mmol/L (3.5-5.1) 06/24/21 17:45 Chloride 99 mmol/L (98-107) 06/24/21 17:45 Carbon Dioxide 26 mmol/L (22-29) 06/24/21 17:45 Anion Gap 18.0 (5-19) 06/24/21 17:45 BUN 30 mg/dL (8-23) H 06/24/21 17:45 Creatinine 0.9 mg/dL (0.5-0.9) 06/24/21 17:45 GFR Calculation Not Reportable 06/24/21 17:45 Glucose 95 mg/dL (65-115) 06/24/21 17:45 Calculated Osmolality 294 mOsm/kg (285-295) 06/24/21 17:45 Lactic Acid 1.7 mmol/L (0.5-2.2) 06/24/21 17:45 Calcium 10.3 mg/dL (8.5-10.5) 06/24/21 17:45 Total Bilirubin 1.2 mg/dL (0.15-1.2) 06/24/21 17:45 AST 52 U/L (0-32) H 06/24/21 17:45 ALT 37 U/L (0-33) H 06/24/21 17:45 Alkaline Phosphatase 385 IU/L (35-105) H 06/24/21 17:45 Ammonia 67 umol/L (11-51) H 06/24/21 17:45 Creatine Kinase 76 U/L (26-192) 06/24/21 20:10 CK-MM (CK-3) Cancelled 06/24/21 20:10 CK-MB (CK-2) Cancelled 06/24/21 20:10 CK-BB (CK-1) Cancelled 06/24/21 20:10 Creatine Kinase Interp Cancelled 06/24/21 20:10 Troponin T Baseline 26 ng/L (0-10) H 06/24/21 17:45 Troponin T 120 Minute 28.79 ng/L (0-10) H 06/24/21 20:00 Delta Troponin T 2.79 ABS# (0-10) 06/24/21 20:00 NT-Pro-B Natriuret Pep 216 pg/mL (0-125) H 06/24/21 20:00 Total Protein 8.1 g/dL (6.6-8.7) 06/24/21 17:45 Albumin 3.8 g/dL (3.5-5.2) 06/24/21 17:45 Globulin 4.3 g/dL (1.3-4.6) 06/24/21 17:45 Lipase 11 U/L (13-60) L 06/24/21 17:45 Vitamin B12 542 pg/mL (232-1245) 06/24/21 20:10 Folate 9.3 ng/mL (4.8-37.3) 06/24/21 20:10 TSH 0.96 uIU/mL (0.27-4.20) 06/24/21 20:10 Free T4 1.40 ng/dL (0.82-1.77) 06/24/21 20:10 Urine Color Yellow (Yellow) 06/24/21 18:00 Urine Appearance Clear (CLEAR) 06/24/21 18:00 Urine pH 8 (5-7) H 06/24/21 18:00 Ur Specific [place] 1.010 (1.005-1.030) 06/24/21 18:00 Urine Protein Neg (Negative) 06/24/21 18:00 Urine Glucose (UA) Norm (Normal) 06/24/21 18:00 Urine Ketones Negative (Negative) 06/24/21 18:00 Urine Blood 2+ (Negative) H 06/24/21 18:00 Urine Nitrate Negative (Negative) 06/24/21 18:00 Urine Bilirubin Neg (Negative) 06/24/21 18:00 Prot Sulfosalicylic Acd Negative (Negative) 06/24/21 18:00 Urine Urobilinogen 1 mg/dL (Negative) H 06/24/21 18:00 Ur Leukocyte Esterase Negative (Negative) 06/24/21 18:00 Urine RBC 0-4 /hpf (0-2) H 06/24/21 18:00 Urine WBC None /hpf (0-5) 06/24/21 18:00 Ur Squamous Epith Cells 0-4 /hpf (0-5) H 06/24/21 18:00 Amorphous Sediment Not Reportable 06/24/21 18:00 Urine Bacteria None /hpf (NONE) 06/24/21 18:00 Urine Opiates Screen Negative ng/mL (Negative) 06/24/21 18:00 Ur Barbiturates Screen Negative ng/mL (Negative) 06/24/21 18:00 Ur Phencyclidine Scrn Negative ng/mL (Negative) 06/24/21 18:00 Ur Amphetamines Screen Negative ng/mL (Negative) 06/24/21 18:00 U Benzodiazepines Scrn Negative ng/mL (Negative) 06/24/21 18:00 Urine Cocaine Screen Negative ng/mL (Negative) 06/24/21 18:00 U Marijuana (THC) Screen Negative ng/mL (Negative) 06/24/21 18:00 Hepatitis A IgM Ab Non-reactive (Nonreactive) 06/24/21 20:10 Hep Bs Antigen Non-reactive (Nonreactive) 06/24/21 20:10 Hep B Core IgM Ab Non-reactive (Nonreactive) 06/24/21 20:10 Hepatitis C Antibody Non-reactive (Nonreactive) 06/24/21 20:10 Influenza Type A Ag Negative (Negative) 06/24/21 20:35 Influenza Type B Ag Negative (Negative) 06/24/21 20:35 SARS-CoV-2 Ag (Rapid) Negative (Negative) 06/24/21 20:35 Discharge Plan Discharge Patient Disposition: Admitted As Inpatient Admit Provider: Sherri Rivas Clinical Impression: Encephalopathy, Sepsis, Cellulitis Condition: Stable Sign Out Sign Out Data: Patient Sign Out occurred on 06/24/21 at 18:24. Patient's care was discussed, and care was transferred from to Santiago Lowry MD. Coding Level of Care Code ED Transmissions Systems Operator for Chg Fwd Exam Detailed
--- NOTE | 2021-06-24 17:09 | PC.PHAR ---
pt is from [facility] [phone]-per amara nurse from [place] the pt took her am meds
--- NOTE | 2021-06-24 17:41 | PC.NURSE ---
Notified DR. Mcgill of the delay with blood from patient, patient is hard stick, ems, and 2 Rn's have attempted. Lab at bedside attempting to get labs. Patient does have IV access however it does not draw, but does flush well.
--- NOTE | 2021-06-24 18:07 | ECG_ITS ---
[facility] Test Date: 2021-06-24 Pat Name: Yesika Sanchez Department: Room: Gender: Female Research Study Assistant: : 1950 Requested By: Anthony Mccabe Order Number: [id number] Mariaa MD: Chelsea Brewer M.D. Measurements Intervals [place] Rate: 102 P: 76 MT: 199 QRS: -55 QRSD: 108 T: 61 QT: 352 QTc: 459 Interpretive Statements SINUS TACHYCARDIA WITH OCCASIONAL VENTRICULAR PREMATURE COMPLEXES WITH OCCASIONAL SUPRAVENTRICULAR PREMATURE COMPLEXES LEFT ANTERIOR FASCICULAR BLOCK [QRS AXIS <= -45, QR IN I, RS IN II] Compared to ECG 06/24/2021 16:20:22 Ventricular premature complex(es) now present Right ventricular hypertrophy now present Left anterior fascicular block now present Left-axis deviation no longer present Electronically Signed On 06-24-2021 20:24:02 CDT by Chelsea Brewer M.D. [id number]
[2021-06-24 18:08] LABS: Lactic Sepsis W/Reflex 1.7 mmol/L (0.5-2.2)
[2021-06-24 18:09] LABS: Ammonia 67 umol/L (11-51)
[2021-06-24 18:10] LABS: Troponin(5th) Baseline 26 ng/L (0-10)
--- NOTE | 2021-06-24 18:16 | CTR_ITS ---
PROCEDURE INFORMATION: Exam: CT Abdomen And Pelvis Without Contrast Exam date and time: 06/24/2021 6:36 PM Age: 71 years old Clinical indication: Abdominal pain; Prior surgery; Surgery date: 6+ months; Surgery type: Hernia repair, c section TECHNIQUE: Imaging protocol: Computed tomography of the abdomen and pelvis without contrast. Radiation optimization: All CT scans at this facility use at least one of these dose optimization techniques: automated exposure control; mA and/or kV adjustment per patient size (includes targeted exams where dose is matched to clinical indication); or iterative reconstruction. COMPARISON: CT abdomen pelvis w con* [id number] 02/25/2021 9:55 PM RADIATION DOSE METRICS: Total DLP (mGy-cm): 3170.26 FINDINGS: Limitations: Streak artifacts. Motion on some of the slices. Lungs: Interval minimal dependent atelectasis. Heart: Cardiac prominence and coronary artery calcifications again evident. Still no pericardial effusion. Liver: Continued lobularity of the liver margins. No suggestion of an interval large liver mass. Gallbladder and bile ducts: Gallbladder absence still likely. No interval significant biliary ductal dilatation. Pancreas: No suggestion of interval pancreatic disease. Spleen: Continued splenomegaly. Adrenal glands: No definite change in size of the 2.6 cm left adrenal mass considering slight motion blur; accurate density measurement in this mass not possible. Still no right adrenal mass. Kidneys and ureters: Artifacts causing suboptimal detail of the right lower renal mass, but continued higher than water density in this mass; current maximal diameter of the mass around 5.5 cm raising the possibility of interval slight enlargement. Continued significantly smaller left lower renal mass possibly containing higher than water density as before. At least 1 small stone still present in the right upper kidney. Tiny stone in the left kidney slightly more evident than before. No interval hydronephrosis. Stomach and bowel: Continued elongation of the sigmoid colon into the right middle to upper abdomen. [id number] descending and proximal sigmoid diverticulosis still present. Still no obstruction. Dilatation of the duodenal bulb still likely. Nondistended stomach. Appendix: Normal appendix. Intraperitoneal space: Still no free air. Vasculature: Upper and lower abdominal varices more apparent previously. Continued atherosclerosis. Still no aortic aneurysm. Lymph nodes: No interval gross adenopathy. Urinary bladder: Interval decrease in size of the bladder and appearance of a small gas bubble in its anterior aspect. Reproductive: Unremarkable as visualized. Bones/joints: Old compression fractures again evident. Continued degeneration of several discs. Interval healing of 2 right rib fractures. Old bilateral rib fractures still present. Soft tissues: Continued bilateral buttock injection granulomatous calcifications. Patchy density in the subcutaneous fat of both hip regions, worse on the left, again evident. Continued small left parasagittal lower anterior abdominal wall ventral hernia containing fat. Surgical clip in the left anterior inguinal region still present. Oblique line of sutures in the right upper anterior abdominal wall still present. Continued extension of the anterior superior bladder into an area of focal anterior bulging of the suprapubic anterior abdominal wall suggesting a hernia. CT/CT abdomen pelvis wo con [id number] IMPRESSION: 1. No obvious acute disease. Numerous chronic abnormalities still present, including probable liver cirrhosis and apparent portal venous hypertension. 2. No significant change in the 2.6 cm left adrenal mass. Suggestion of evaluation of this mass at the time of follow-up renal MRI. 3. Possible interval slight enlargement of the 5.5 cm right lower renal mass containing higher than water density. Smaller left renal mass mass also noted possibly containing higher than water density as before. If not previously performed, recommend non-emergent follow-up MRI without and with contrast. A few renal stones still present. 4. Interval appearance of a small gas bubble in the urinary bladder raising the possibility of its recent catheterization. 5. Cholecystectomy still likely. Questionable edema or bruising in the left hip region. Other findings detailed above. COMMENTS: Consistent with the [employer]'s Incidental Findings Committee white paper (J Am Valentín Radiol 2018): Any incidental renal lesion less than 1 cm or classified as too small to characterize, or any incidental cystic renal lesion characterized as simple-appearing, is likely benign. No follow-up imaging is recommended for these lesions per consensus recommendations based on imaging criteria.
[2021-06-24 18:23] LABS: Alanine Aminotransferase 37 U/L (0-33); Albumin Level 3.8 g/dL (3.5-5.2); Alkaline Phosphatase 385 IU/L (35-105); Aspartate Amino Transferase 52 U/L (0-32); Blood Urea Nitrogen 30 mg/dL (8-23); Calcium 10.3 mg/dL (8.5-10.5); Carbon Dioxide 26 mmol/L (22-29); Chloride 99 mmol/L (98-107); Globulin 4.3 g/dL (1.3-4.6); Glucose 95 mg/dL (65-115); Osmolality Calculated 294 mOsm/kg (285-295); Sodium 139 mmol/L (136-145); Total Bilirubin 1.2 mg/dL (0.15-1.2); Total Protein 8.1 g/dL (6.6-8.7)
[2021-06-24 18:25] LABS: Basophils % 0.2 %; Hemoglobin 12.4 g/dL (11.5-15.3); Lymphocytes # 0.6 10^3/uL (0.8-4.8); Lymphocytes % 4.5 %; Mean Corpuscular HGB Conc 31.8 g/dL (30.0-36.0); Mean Corpuscular Volume 106.8 fl (81-99); Mean Platelet Volume 10.1 fL (7.4-10.4); Monocytes # 0.7 10^3/uL (0.2-0.9); Monocytes % 5.6 %; Neutrophils % 89.1 %; Nucleated Red Blood Cells % 0 %; Platelet Count 90 10^3/cmm (130-400); Red Blood Count 3.65 10^6/uL (4.1-5.3); Red Cell Distribution Width 16.7 % (12.1-15.1); White Blood Count 12.4 10^3/uL (4.0-10.0)
[2021-06-24 18:48] LABS: Urine Appearance Clear (CLEAR); Urine Color Yellow (Yellow); pH Urine 8 (5-7)
[2021-06-24 18:49] LABS: Add Urine Microscopic? YES; Bilirubin Urine Neg (Negative); Blood Urine 2+ (Negative); Glucose Urine UA Norm (Normal); Ketones Urine Negative (Negative); Leukocyte Esterase Urine Negative (Negative); Nitrate Urine Negative (Negative); Protein Urine Neg (Negative); Sulfosalicylic Acid Urine Negative (Negative); Urobilinogen Urine 1 mg/dL (Negative)
[2021-06-24 18:50] LABS: RBC Urine 0-4 /hpf (0-2); Squamous Epithelial Cell Urine 0-4 /hpf (0-5)
[2021-06-24 18:51] LABS: Add Urine Culture? No
[2021-06-24 19:03] LABS: Lipase 11 U/L (13-60)
--- NOTE | 2021-06-24 19:17 | PC.NURSE ---
1899 Assumed pt care from Charlee BEAR
[2021-06-24] MEDS: piperacillin-tazobactam 3.375 GM in sodium chloride 0.9% (plus) 50 ML IV (19:35)
[2021-06-24 20:17] LABS: ABG PCO2 40.4 mmHg (35-45); Arterial Blood Gas Hematocrit 35.9 % (37-47); Base Excess ABG 7.6 mmol/L (-2.0-2.0); Blood Gas Allen Test Pos; Blood Gas Operator Identificat WALCI; Blood Gas Sample Site Radial, left; Blood Gas Sample Type Arterial; HCO3 ABG 31.4 mmol/L (22-26); Oxygen Device NC
[2021-06-24 20:26] LABS: Troponin 5 2HR 28.79 ng/L (0-10)
[2021-06-24 20:30] LABS: Troponin 5 2HR Delta 2.79 ABS# (0-10)
[2021-06-24] MEDS: ondansetron 2 mg/ML SDV 2 mL 4 MG IVP (20:35)
[2021-06-24] MEDS: sodium chloride 0.9% 1,000 ML 999 ML IV (20:37)
[2021-06-24] MEDS: vancomycin 1,000 MG in sodium chloride 0.9% 250 ML 250 MG IV (20:38)
[2021-06-24 20:57] LABS: NT Pro B Type Natriuretic Pept 216 pg/mL (0-125)
[2021-06-24 21:24] LABS: Influenza A by IFA Negative (Negative); Influenza B by IFA Negative (Negative); SARS Covid-2 Antigen Negative (Negative)
[2021-06-24 21:42] LABS: Hepatitis A Antibody IgM Non-Reactive (Nonreactive); Hepatitis B Core IgM Non-Reactive (Nonreactive); Hepatitis B Surface Antigen Non-Reactive (Nonreactive); Hepatitis C Virus Antibody Non-Reactive (Nonreactive)
--- NOTE | 2021-06-24 21:47 | P.HP_ITS ---
Providers/Chief Complaint Primary Care Provider: Rubi Saenz DO Chief Complaint: AMS/ CONFUSED History of Present Illness the patient is a 71-year-old female who was transferred to the emergency department due to encephalopathy. Unfortunately she is UNACCOMPANIED at that and at the time of my encounter with her she remains encephalopathic. Unfortunately because of this, I am unable to obtain further history of present illness and past medical history. She presents for further evaluation Review of Systems General: Reports: 10 or more systems reviewed and unremarkable except in HPI and below Medications/Allergies Home Medications Medication Instructions Recorded Confirmed Last Taken Type insulin syr/ndl U100 half juanito 0.3 #100 ea 04/04/20 06/24/21 Unknown Rx mL 30 gauge x 1/2 blood sugar diagnostic (Blood #100 ea 05/09/20 06/24/21 Unknown Rx Glucose Test) lancets #100 ea 05/09/20 06/24/21 Unknown Rx lancets (Accu-Chek Softclix #200 ea 05/09/20 06/24/21 Unknown Rx Lancets) Lift chair #1 ea 05/29/20 06/24/21 Unknown Rx allopurinol 300 mg tablet 300 mg PO DAILY@06/26/20 06/24/21 06/24/21 History Diabetic Shoes #1 ea 08/06/20 06/24/21 Unknown Rx nitroglycerin 0.4 mg sublingual 0.4 mg SUBLINGUAL Q5M PRN 09/16/20 06/24/21 09/15/20 History tablet albuterol sulfate 90 mcg/actuation 2 puff INHALATION Q6H PRN 02/26/21 06/24/21 Unknown History aerosol inhaler (ProAir HFA) atorvastatin 40 mg tablet 40 mg PO DAILY@02/26/21 06/24/21 06/24/21 History clopidogrel 75 mg tablet 75 mg PO DAILY@02/26/21 06/24/21 06/24/21 History cyclobenzaprine 5 mg tablet 5 mg PO Q8H PRN 02/26/21 06/24/21 06/24/21 06:00 History polyethylene glycol 3350 17 17 g PO DAILY@02/26/21 06/24/21 06/24/21 History gram/dose oral powder (Miralax) oxycodone 5 mg tablet 5 mg PO Q6H PRN #30 tab 03/11/21 06/24/21 06/24/21 06:00 Rx acetaminophen 325 mg tablet 650 mg PO Q6H PRN 06/24/21 06/24/21 Unknown History (Tylenol) bumetanide 2 mg tablet 2 mg PO BID 06/24/21 06/24/21 06/24/21 History donepezil 5 mg tablet 5 mg PO DAILY@06/24/21 06/24/21 06/23/21 History insulin glargine 100 unit/mL 85 unit SUBCUT BEDTIME@06/24/21 06/24/21 06/23/21 History subcutaneous solution (Lantus U-100 Insulin) insulin lispro 100 unit/mL See Rx Instructions .ROUTE .COMPLEX 06/24/21 06/24/21 06/24/21 11:00 History subcutaneous pen (Humalog KwikPen 30 units (U-100) Insulin) metoprolol tartrate 25 mg tablet 25 mg PO BID@08,06/24/21 06/24/21 06/24/21 History nystatin 100,000 unit/gram topical See Rx Instructions .ROUTE .COMPLEX 06/24/21 06/24/21 Unknown History powder ondansetron HCl 4 mg tablet 4 mg PO Q4H PRN 06/24/21 06/24/21 Unknown History pantoprazole 40 mg tablet,delayed 40 mg PO BID@08,06/24/21 06/24/21 06/24/21 History release potassium chloride 20 mEq 20 meq PO BID@08,14 06/24/21 06/24/21 06/24/21 14:00 History tablet,extended release vit no.95-ferrous 1 tab PO DAILY@08 06/24/21 06/24/21 06/24/21 History fumarate 28 mg-folic acid 800 mcg tablet ( Multivitamins) quetiapine 50 mg tablet 50 mg PO BEDTIME@06/24/21 06/24/21 06/23/21 History triamcinolone acetonide 0.1 % See Rx Instructions .ROUTE .COMPLEX 06/24/21 06/24/21 Unknown History topical cream Allergies Allergy/AdvReac Type Severity Reaction Status Date / Time cephalexin [From Keflex] Allergy Severe ALGY-Rash Verified 06/24/21 17:10 bupropion [From Wellbutrin] Allergy Unknown Unknown Verified 06/24/21 17:10 ciprofloxacin Allergy Unknown Unknown Verified 06/24/21 17:10 fluoxetine [From Prozac] Allergy Unknown Unknown Verified 06/24/21 17:10 gabapentin Allergy Unknown Unknown Verified 06/24/21 17:10 sulindac [From Clinoril] Allergy Unknown unkown Verified 06/24/21 17:10 iron Allergy ADR-Nausea Verified 06/24/21 17:10 PFSH Acute PFSH: Medical History Anxiety ASHD (arteriosclerotic heart disease) Back pain Cellulitis of right lower extremity CHF (congestive heart failure) CKD (chronic kidney disease) Coronary artery disease Cough DDD (degenerative disc disease) Decreased hearing of both ears Depression Diabetes Diabetic polyneuropathy Duodenal ulcer Dyslipidemia Edema History of GI bleed Hypertension Incarcerated incisional hernia Joint pain Left hamstring muscle strain Morbid obesity Morbilliform rash Onychomycosis PUD (peptic ulcer disease) Recurrent UTI Renal calculus Right leg pain Urinary tract infection Vertigo Vitamin B deficiency Vitamin D deficiency Wound of right lower extremity Surgical History H/O esophagogastroduodenoscopy (~06/05/19) H/O hernia repair History of coronary artery stent placement Cardiac cath on 12/13/2016 with stent placement to LAD Hx of section 3 Hx of cholecystectomy Hx of tonsillectomy S/P appendectomy S/P plastic surgery 2019, panniculectomy Family History Mother CAD (coronary artery disease) Other Hypertension Social History Quit status (tobacco): has quit using tobacco Former quit date comment: 2.5 PPD x 40 yrs Alcohol intake: unknown Vitals/I&O/Wt Last Vital Signs Pulse 102 H 06/24/21 21:00 Resp 16 06/24/21 21:00 BP 147/61 06/24/21 21:00 Pulse Ox 99 06/24/21 21:00 06/24/21 06/24/21 06/24/21 06:59 14:59 22:59 Intake Total 50 / 50 Balance 50 / 50 Weight last 48 hrs Weight 124.738 kg Physical Exam Narrative: General: -Alert -No acute distress -No dyspnea -No tachypnea Head: -Atraumatic -Normocephalic Eyes: -Pupils equally round and reactive to light and accommodation -Extraocular muscles intact Neurological: -Cranial nerves II-XII intact Neck: -No jugular venous distention -No thyromegaly -No cervical lymphadenopathy Heart: -Regular rate -Regular rhythm -No murmurs -No gallops -No rubs Lungs: -No wheeze -No rhonchi -No rales ? Abdomen: -Normal bowel sounds in all four quadrants -No rebound -No guarding -No tenderness Extremities: -2/4 pulse in all four extremities -No clubbing -No cyanosis -No edema -No calf tenderness present bilaterally -Negative Roberto Carlos?s sign bilaterally Musculoskeletal: -5/5 bilateral upper extremity strength -5/5 bilateral lower extremity strength -Sensorium of bilateral upper extremities are equal and intact -Sensorium of bilateral lower extremities are equal and intact ? Additional Details / Additional Findings / Exceptions / Miscellaneous: Data : 06/24/21 17:45 06/24/21 17:45 Micro: Microbiology 06/24/21 17:45 Blood Culture - Preliminary Blood SPECIMEN COLLECTED A&P Assessment and plan (1) Encephalopathy: Status: Acute Plan encephalopathy, secondary to hyperammonemia and possibly the patient's bilateral lower [place] cellulitis may be contribute as well along with dehydration given her hemoconcentration from her baseline hemoglobin. Urine drug screen pending. Neuro checks every 4 hours. Aspiration precautions. Will monitor ammonia level intermittently. IV normal saline at 75 ML's per hour plus lactulose 30 g by mouth 4 times a day Anxiety Peripheral vascular disease Depression Constipation Chronic pain [place]'s dementia Elevated troponin, chronic. I have a low index of suspicion for ACS. Will monitor patient on telemetry and checks her cardiac enzymes. Recheck EKG on the morning of June 25, 2021 Bilateral lower extremity excoriations with question of cellulitis. blood culture ?2 drawn in the emergency department pending. IV vancomycin to be dosed by pharmacy plus Zosyn 3.375 g IV every 6 hours. Nursing staff has been ordered to demarcate and 8 the margin of erythema daily descending thoracic aortic aneurysm. outpatient monitoring with her primary care physician or with a provider history of suicidal ideation Muscle spasm Gout CHF, ejection fraction 55-60% with grade 1 diastolic dysfunction. Strict I/O. Daily weight Coronary artery disease, status post NV, status post stent Diabetes. Will check fasting glucose every before meals and at bedtime and provide insulin sliding scale GERD/history of peptic ulcer disease Hyperlipidemia Hypertension Obesity. The patient becomes regarding lifestyle modification Right renal mass. Outpatient monitoring with her primary care physician or with a provider Left adrenal mass. Outpatient monitoring with her primary care physician or with a provider Type to close his Neuropathy Cirrhosis. Will monitor LFTs per periodically with CMP along with PT/INR History of adrenal insufficiency History of gastrointestinal bleed History of DVT/pulmonary ambos and Seasonal allergies History of vitamin D deficiency Degenerative disc disease Nephrolithiasis Macrocytosis. Check TSH, free T4, B12, folate level Thrombocytopenia. We will monitor platelet count intermittently DVT Proflex is. Contraindicated. I am holding pharmacological anticoagulation at this time due to her history of gastrointestinal bleed and no bilateral lower extremity CD or JOSE hose due to bilateral lower extremity excoriations with likely cellulitis Attestations Medical Necessity Statement*: the patient's anticipated length of stay is greater than 2 midnights for treatment of her encephalopathy Coding Level of Care Code Acute Flight Attendant/Inflight Manager for [facility] Diagnoses Encephalopathy G93.40
--- NOTE | 2021-06-24 22:07 | ECG_ITS ---
[facility] Test Date: 2021-06-24 Pat Name: Yesika Sanchez Department: Room: 269 Gender: Female Band Presser: : 1950 Requested By: Anthony Mccabe Order Number: [id number] Mariaa MD: Santo Rogel M.D. Measurements Intervals [place] Rate: 103 P: [place]: QRS: -47 QRSD: 108 T: 64 QT: 359 QTc: 472 Interpretive Statements ATRIAL FIBRILLATION WITH RAPID VENTRICULAR RESPONSE WITH ABERRANT CONDUCTION OR VENTRICULAR PREMATURE COMPLEXES PATTERN CONSISTENT WITH PULMONARY DISEASE LEFT ANTERIOR FASCICULAR BLOCK [QRS AXIS <= -45, QR IN I, RS IN II] Compared to ECG 06/24/2021 19:28:52 Aberrant conduction of supraventricular beat(s) now present Sinus tachycardia no longer present Electronically Signed On 06-25-2021 17:21:28 CDT by Santo Rogel M.D. [id number]
[2021-06-24 22:40] LABS: Amphetamines Screen Urine Negative (Negative); Barbiturates Screen Urine Negative (Negative); Benzodiazepines Screen Urine Negative (Negative); Cocaine Screen Urine Negative (Negative); Opiate Screen Urine Negative (Negative); PCP Screen Urine Negative (Negative); THC Screen Urine Negative (Negative)
[2021-06-24 22:55] LABS: Thyroid Stimulating Hormone 0.96 uIU/mL (0.27-4.20)
[2021-06-24 22:58] LABS: INR 1.21 (0.8-1.2)
[2021-06-24 23:04] LABS: Troponin 5 6HR 29.56 ng/L (0-10); Troponin 5 6HR Delta 3.56 ng/L (0-12)
[2021-06-24] MEDS: sodium chloride 0.9% 1,000 ML 75 ML IV (23:32)
[2021-06-25] VITALS (14 sets, daily range): BP systolic 106–175; BP diastolic 58–91; PULSE 85–117; RESP 17–20; TEMP 36.8–39.2; O2SAT 91–95
[2021-06-25 00:10] LABS: Vitamin B12 542 pg/mL (232-1245)
[2021-06-25 00:54] LABS: Folate Level 9.3 ng/mL (4.8-37.3)
[2021-06-25] MEDS: piperacillin-tazobactam 3.375 GM in sodium chloride 0.9% (plus) 50 ML IV ×2 (03:08→09:26)
--- NOTE | 2021-06-25 03:16 | PC.NURSE ---
Reported the temp to the nurse. Temp was 100.9
[2021-06-25 06:03] LABS: Basophils % 0.1 %; Hematocrit 33.7 % (37.0-47.0); Hemoglobin 10.7 g/dL (11.5-15.3); Lymphocytes # 0.4 10^3/uL (0.8-4.8); Lymphocytes % 5.3 %; Mean Corpuscular HGB Conc 31.8 g/dL (30.0-36.0); Mean Corpuscular Hemoglobin 34.4 pg (28.0-34.0); Mean Corpuscular Volume 108.4 fl (81-99); Mean Platelet Volume 9.6 fL (7.4-10.4); Monocytes # 0.4 10^3/uL (0.2-0.9); Monocytes % 5.8 %; Neutrophils # 5.93 10^3/uL (1.8-7.7); Neutrophils % 88.2 %; Nucleated Red Blood Cells % 0 %; Platelet Count 64 10^3/cmm (130-400); Red Blood Count 3.11 10^6/uL (4.1-5.3); Red Cell Distribution Width 16.9 % (12.1-15.1); White Blood Count 6.7 10^3/uL (4.0-10.0)
[2021-06-25 06:19] LABS: Ammonia 73 umol/L (11-51)
[2021-06-25 06:21] LABS: Alanine Aminotransferase 27 U/L (0-33); Albumin Level 2.8 g/dL (3.5-5.2); Alkaline Phosphatase 280 IU/L (35-105); Anion Gap 14.6 (5-19); Aspartate Amino Transferase 35 U/L (0-32); Blood Urea Nitrogen 27 mg/dL (8-23); Calcium 9.2 mg/dL (8.5-10.5); Carbon Dioxide 25 mmol/L (22-29); Chloride 103 mmol/L (98-107); Globulin 3.9 g/dL (1.3-4.6); Glucose 189 mg/dL (65-115); Osmolality Calculated 298 mOsm/kg (285-295); Potassium 3.6 mmol/L (3.5-5.1); Sodium 139 mmol/L (136-145); Total Bilirubin 1.4 mg/dL (0.15-1.2); Total Protein 6.7 g/dL (6.6-8.7)
[2021-06-25] MEDS: acetaminophen 325 mg Tablet 650 MG PO ×2 (07:31→20:21)
[2021-06-25 07:48] LABS: Glucose Point of Care 189 mg/dL (70-110)
[2021-06-25] MEDS: insulin lispro 100 unit/1 mL SUBCUT ×4 (08:06→22:58)
[2021-06-25] MEDS: lactulose oral liq 20 gm/30 mL UDC 30 GM PO ×4 (08:07→20:23)
[2021-06-25] MEDS: ondansetron 2 mg/ML SDV 2 mL 4 MG IVP ×2 (08:12→19:47)
[2021-06-25 08:26] LABS: Erythrocyte Sedimentation Rate 37 mm/hr (0-15)
[2021-06-25 08:29] LABS: C Reactive Protein 61.2 mg/L (0.0-4.9)
[2021-06-25 08:36] LABS: Procalcitonin 0.29 ng/mL (0-0.5)
--- NOTE | 2021-06-25 08:57 | US_ITS ---
WS: [id number] Abdominal ultrasound, limited. History: Evaluate for ascites. Comparison: None. All 4 quadrants are imaged by ultrasound to evaluate for ascites. There is no peritoneal fluid identi fied. US/US abdomen lmt fluid [id number] IMPRESSION: No peritoneal ascites.
[2021-06-25 09:04] LABS: Creatine Phosphokinase 76 U/L (26-192)
[2021-06-25] MEDS: FUROsemide 10 mg/mL SDV 4mL 40 MG IVP ×2 (09:25→20:22)
[2021-06-25] MEDS: potassium chloride ER 20 mEq Tablet 40 MEQ PO (09:25)
--- NOTE | 2021-06-25 10:43 | PC.CHAP ---
Pastoral Care Encounter/Spiritual Assessment Type of Contact [] Declined fagoting machine operator visit [] Patient/Family/Request visit [] Outpatient visit [] Follow-up visit [] Physician referral [] Code/Alert [x] Routine visit [] Staff referral [] Actively dying [] Patient sleeping [] Family support [] [] Out of room [] Palliative care [] [x] Receiving care in room [] Pre-surgical visit [] Trauma [x] Long length of stay [] ICU visit [] Other: Relational/Emotional Strength [x] Patient feels connected with others/family/visitors/staff [] Distress [] Loneliness/isolation [] Abandonment Spirituality of Patient [x] Person of Rocio [] Attends Christianity of their Rocio [x] Believes in Prayer [] Reads Bible or Mandaeism materials [] There are Spiritual issues to be addressed Curriculum Coordinator Interventions [] Prayer [] Active listening [] Non-anxious presence [] Spiritual/emotional support [] Crisis/trauma care [] Spiritual counseling [] Bereavement support [] Provided bereavement packet [] Provided Bible/devotional materials [] Provided toy/stuffed animal, coloring book to patient or family member [] Provided Communion [] Anointing/[place] [] Salvation [] Completed spiritual assessment [] Other: Impact on Illness or Injury [] Angry [] Fearful [x] Anxious [] Often cries [] Exhaustion [x] Unable to work [] Unable to attend congregation [] Unable to walk/stand [] Unable to read [] Unable to drive [] Unable to eat/drink [] Unable to sleep [] Unable to be with family [] Patient intubated [] Other: Summary Not able to communicate under staff care Time spent with patient 10 mins
--- NOTE | 2021-06-25 11:12 | USCV_ITS ---
Yesika Sancehz Age: 71 Gender: F : 1950 Exam Date: 06/25/2021 11:54 Ordering Phys: Ag Medina MD Technologist: Oleg Aviles Exam Location: [facility] [place] Indication: dvt PROCEDURES: Attempted bilateral lower extremity venous duplex. Imaged from right gsv through right prox femoral vein. No thrombus identified within that portion. Patient told joy loading machine operator to stop due to pain. Exam could not be completed at this time. CONCLUSIONS Incomplete exam due to pain Only evaluated Right GSV, CFV, profunda and right proximal femoral vein which are patent. Wang Lozoya MD (Electronically Signed) Final Date: 25 Jun 2021 13:02 S
--- NOTE | 2021-06-25 11:13 | PM.PN ---
Vitals/I&O/Wt Last Vital Signs Temp 98.2 F 06/25/21 08:00 Pulse 89 06/25/21 08:29 Resp 20 H 06/25/21 08:00 BP 129/73 06/25/21 08:00 Pulse Ox 95 06/25/21 08:29 06/24/21 06/25/21 06/25/21 22:59 06:59 14:59 Intake Total 50 / 50 1250 / 1300 1396.25 / 1396.25 Balance 50 / 50 1250 / 1300 1396.25 / 1396.25 Weight last 48 hrs Weight 127.051 kg Weight 127.051 kg Weight 124.738 kg Weight 124.738 kg Physical Exam Const: COMMON NORMALS: no acute distress EXAM LIMITATIONS: altered mental status ORIENTATION/CONSCIOUSNESS: Yes awake and Yes oriented to person; not oriented to place and not oriented to time HENMT: COMMON NORMALS: normocephalic HEAD & SCALP: normocephalic Resp: COMMON NORMALS: normal respiratory effort, No retractions, No use of accessory muscles and clear to auscultation bilaterally AUSCULTATION: clear to auscultation bilaterally Cardio: COMMON NORMALS: regular rate, regular rhythm, S1 normal heart sound present and S2 normal heart sound present RATE: regular rate RHYTHM: regular rhythm HEART SOUNDS: S1 normal heart sound present and S2 normal heart sound present GI: COMMON NORMALS: Normal to inspection, nondistended, normoactive bowel sounds present, Soft to palpation and non-tender PALPATION: Yes Soft to palpation Neuro: SENSORIUM/ORIENTATION: Yes oriented to person, No oriented to place and No oriented to time Skin: NARRATIVE SKIN EXAM: Bilateral lower extremity, 2+ pitting edema, erythema, swelling, open sores bilateral lower extremities, extending from mid [place] down to ankles Data : 06/25/21 05:52 06/25/21 05:52 Micro: Microbiology 06/25/21 08:30 Blood Culture - Preliminary Blood SPECIMEN COLLECTED 06/25/21 08:37 Blood Culture - Preliminary Blood SPECIMEN COLLECTED 06/24/21 17:45 Blood Culture - Preliminary Blood SPECIMEN COLLECTED A&P Assessment and plan (1) Encephalopathy: Status: Acute (2) Cellulitis: Status: Acute (3) Acute encephalopathy: Status: Acute (4) WOLFE (nonalcoholic steatohepatitis): Status: Acute (5) Thrombocytopenia: Status: Acute (6) Fever: Status: Acute Qualifiers: Fever type: unspecified Qualified Code(s): R50.9 - Fever, unspecified (7) History of GI bleed: Status: Acute (8) PUD (peptic ulcer disease): Status: Acute (9) Pulmonary emboli: Status: Acute (10) Hypertension: Status: Acute (11) Anxiety: Status: Acute Plan Acute encephalopathy -History of ESBL E. coli UTIs -History of liver cirrhosis with hyperammonemia -Bilateral extremity cellulitis -During her last hospitalization had episodes of acute encephalopathy -However now she is febrile Plan: -Continue vancomycin -Possible SBP? Ultrasound abdomen -Expand antibiotic coverage to Primaxin -Venous ultrasound bilateral extremities -Blood cultures, urine cultures, bacterial antigens -40 IV twice daily -Plan on lumbar puncture, however she took Plavix, will have to wait 5 days, if her mentation does not improve by Tuesday we will proceed with lumbar puncture History of left shoulder fracture Mild dementia Peripheral vascular disease Chronic pain Recent history of COVID-19 positivity History of CAD, status post LAD stenting elevated troponin, chronic. I have a low index of suspicion for ACS. Will monitor patient on telemetry and checks her cardiac enzymes. Recheck EKG on the morning of June 25, 2021 Bilateral lower extremity excoriations with question of cellulitis. blood culture ?2 drawn in the emergency department pending. IV vancomycin to be dosed by pharmacy plus Zosyn 3.375 g IV every 6 hours. Nursing staff has been ordered to demarcate and 8 the margin of erythema daily descending thoracic aortic aneurysm. outpatient monitoring with her primary care physician or with a provider history of suicidal ideation Muscle spasm Gout CHF, ejection fraction 55-60% with grade 1 diastolic dysfunction. Strict I/O. Daily weight Diabetes. Will check fasting glucose every before meals and at bedtime and provide insulin sliding scale GERD/history of peptic ulcer disease Hyperlipidemia Hypertension Obesity. The patient becomes regarding lifestyle modification Right renal mass. Outpatient monitoring with her primary care physician or with a provider Left adrenal mass. Outpatient monitoring with her primary care physician or with a provider Neuropathy Nonalcoholic steatohepatitis now with radiographic evidence of liver cirrhosis -With evidence of portal hypertension -History of GI bleed secondary duodenal ulcer -Has chronic anemia, thrombocytopenia, LFT abnormalities, -Monitor platelet count, LFTs, INR History of adrenal insufficiency, monitor blood pressure, get serum cortisol History of gastrointestinal bleed -Not sure why she is on Plavix? -Hold for now History of DVT/pulmonary embolism, not on anticoagulation August 2019, repeat imaging showed resolution, off Eliquis History of vitamin D deficiency Degenerative disc disease Nephrolithiasis Macrocytosis. Check TSH, free T4, B12, folate level Thrombocytopenia. We will monitor platelet count intermittently DVT Proflex is. Contraindicated. I am holding pharmacological anticoagulation at this time due to her history of gastrointestinal bleed and no bilateral lower extremity CD or JOSE hose due to bilateral lower extremity excoriations with likely cellulitis Attestations Medical Necessity Statement*: Patient requires hospitalization for acute encephalopathy, fevers, concerns for SBP versus meningitis versus UTI Coding Level of Care Code Acute Health Teacher for [facility] Fwd Diagnoses Encephalopathy G93.40 Cellulitis L03.90 Acute encephalopathy G93.40 WOLFE (nonalcoholic steatohepatitis) K75.81 Thrombocytopenia D69.6 Fever R50.9 Fever type: unspecified History of GI bleed Z87.19 PUD (peptic ulcer disease) K27.9 Pulmonary emboli I26.99 Hypertension I10 Anxiety F41.9
[2021-06-25 11:48] LABS: Glucose Point of Care 274 mg/dL (70-110)
[2021-06-25] MEDS: morphine 4 mg/mL SDV 1 mL 1 MG IVP ×2 (14:40→19:52)
[2021-06-25 21:31] LABS: Glucose Point of Care 371 mg/dL (70-110)
[2021-06-25 21:31] LABS: Glucose Point of Care 353 mg/dL (70-110)
[2021-06-26] VITALS (10 sets, daily range): BP systolic 103–136; BP diastolic 56–72; PULSE 66–102; RESP 12–18; TEMP 36.3–37.4; O2SAT 93–99
[2021-06-26 04:30] LABS: Basophils % 0.2 %; Eosinophils # 0.2 10^3/uL (0.0-0.8); Eosinophils % 4.1 %; Hematocrit 32.5 % (37.0-47.0); Lymphocytes # 0.6 10^3/uL (0.8-4.8); Lymphocytes % 14.1 %; Mean Corpuscular HGB Conc 30.8 g/dL (30.0-36.0); Mean Corpuscular Hemoglobin 34.7 pg (28.0-34.0); Mean Corpuscular Volume 112.8 fl (81-99); Mean Platelet Volume 10.5 fL (7.4-10.4); Monocytes # 0.6 10^3/uL (0.2-0.9); Monocytes % 13.7 %; Neutrophils # 2.81 10^3/uL (1.8-7.7); Neutrophils % 67.4 %; Nucleated Red Blood Cells % 0 %; Platelet Count 55 10^3/cmm (130-400); Red Blood Count 2.88 10^6/uL (4.1-5.3); Red Cell Distribution Width 16.5 % (12.1-15.1); White Blood Count 4.2 10^3/uL (4.0-10.0)
[2021-06-26 04:41] LABS: INR 1.27 (0.8-1.2)
[2021-06-26 04:48] LABS: Ammonia 91 umol/L (11-51)
[2021-06-26 04:56] LABS: Alanine Aminotransferase 26 U/L (0-33); Albumin Level 2.4 g/dL (3.5-5.2); Alkaline Phosphatase 231 IU/L (35-105); Anion Gap 11.6 (5-19); Aspartate Amino Transferase 27 U/L (0-32); Blood Urea Nitrogen 30 mg/dL (8-23); Calcium 8.1 mg/dL (8.5-10.5); Carbon Dioxide 26 mmol/L (22-29); Chloride 101 mmol/L (98-107); Globulin 3.4 g/dL (1.3-4.6); Glucose 259 mg/dL (65-115); Magnesium 1.3 mg/dL (1.7-2.3); NT Pro B Type Natriuretic Pept 809 pg/mL (0-125); Osmolality Calculated 295 mOsm/kg (285-295); Phosphorus 2.2 mg/dL (2.5-4.5); Potassium 3.6 mmol/L (3.5-5.1); Sodium 135 mmol/L (136-145); Total Bilirubin 0.8 mg/dL (0.15-1.2); Total Protein 5.8 g/dL (6.6-8.7)
[2021-06-26] MEDS: morphine 4 mg/mL SDV 1 mL 1 MG IVP (07:20)
[2021-06-26] MEDS: FUROsemide 10 mg/mL SDV 4mL 40 MG IVP (08:34)
[2021-06-26] MEDS: insulin lispro 100 unit/1 mL SUBCUT ×4 (08:53→23:06)
[2021-06-26] MEDS: lactulose oral liq 20 gm/30 mL UDC 30 GM PO ×3 (08:54→23:06)
[2021-06-26] MEDS: magnesium sulfate premix 4 GM/100 ML PREMIX IV (08:54)
--- NOTE | 2021-06-26 09:09 | XR_ITS ---
WS: [id number] Right shoulder, 2 views, 06/26/2021 Clinical Data: pain Comparison: None. Findings: There is calcification surrounding the right humeral head which is consistent with adhesive capsuliti s. There is irregularity of the humeral head as it articulates with the glenoid fossa No fractures or dislocations are seen. The AC joint is normal. The adjacent right clavicle, right sca pula and ribs are normal. The soft tissues are unremarkable. There is minimal calcification in the region of the right carotid bifurcation. XR/XR shoulder RT min 2V* [id number] Impression: 1. Calcification surrounding the right humeral head consistent with adhesive ca psulitis. 2. Osteoarthritic change of the right glenohumeral joint.
[2021-06-26] MEDS: HYDROmorphone 1 mg/mL INJ 1 mL 0.4 MG IVP ×3 (10:55→23:07)
--- NOTE | 2021-06-26 12:24 | PM.PN ---
Subjective Subjective: Patient was seen this morning, she is alert to person, to place, not to time, she follows commands, she has been doing better in terms of her mentation, afebrile overnight, she does complain of of diarrhea from the lactulose we are giving to her does complain of right shoulder pain Vitals/I&O/Wt Last Vital Signs Temp 98.4 F 06/26/21 11:54 Pulse 66 06/26/21 11:54 Resp 16 06/26/21 11:54 BP 117/61 06/26/21 11:54 Pulse Ox 95 06/26/21 11:54 06/25/21 06/26/21 06/26/21 22:59 06:59 14:59 Intake Total 950 / 3191.042 340 / 3531.042 810 / 810 Output Total 1550 / 1550 Balance 950 / 3191.042 -1210 / 1981.042 810 / 810 Weight last 48 hrs Weight 127.051 kg Weight 127.051 kg Weight 124.738 kg Weight 124.738 kg Physical Exam Const: COMMON NORMALS: no acute distress and patient oriented x3 OTHER: Alert to person, place, not to time, does follow commands Right shoulder, pain with range of motion Bilateral lower extremity, cellulitic areas, extending up to the mid [place], open sores Resp: COMMON NORMALS: normal respiratory effort, No retractions, No use of accessory muscles and clear to auscultation bilaterally AUSCULTATION: clear to auscultation bilaterally Cardio: COMMON NORMALS: regular rate, regular rhythm, S1 normal heart sound present and S2 normal heart sound present RATE: regular rate RHYTHM: regular rhythm HEART SOUNDS: S1 normal heart sound present and S2 normal heart sound present GI: COMMON NORMALS: Normal to inspection, nondistended, normoactive bowel sounds present, Soft to palpation and non-tender PALPATION: Yes Soft to palpation Extremity: COMMON NORMALS: no pedal edema Neuro: COMMON NORMALS: patient oriented x3 Psych: COMMON NORMALS: mental status grossly normal Urinary Catheter Management: Khan: Cath Placed During This Visit: yes Reason for Continuing Indwelling Catheter: Other Urinary Catheter Date of Insertion: 06/25/21 Urinary Catheter Time of Insertion: 12:44 Data : 06/26/21 04:20 06/26/21 04:20 Micro: Microbiology 06/25/21 08:37 Blood Culture - Preliminary Blood NEGATIVE TO DATE 06/25/21 08:30 Blood Culture - Preliminary Blood NEGATIVE TO DATE 06/24/21 18:00 Urine Culture - Preliminary Urine Catheterized 06/24/21 17:45 Blood Culture - Preliminary Blood NEGATIVE TO DATE A&P Assessment and plan (1) Encephalopathy: Status: Acute (2) Cellulitis: Status: Acute (3) Acute encephalopathy: Status: Acute (4) WOLFE (nonalcoholic steatohepatitis): Status: Acute (5) Thrombocytopenia: Status: Acute (6) Fever: Status: Acute Qualifiers: Fever type: unspecified Qualified Code(s): R50.9 - Fever, unspecified (7) History of GI bleed: Status: Acute (8) PUD (peptic ulcer disease): Status: Acute (9) Pulmonary emboli: Status: Acute (10) Hypertension: Status: Acute (11) Anxiety: Status: Acute Plan Acute encephalopathy -Mentation improving, febrile overnight -History of ESBL E. coli UTIs -History of liver cirrhosis with hyperammonemia -Bilateral extremity cellulitis -During her last hospitalization had episodes of acute encephalopathy Plan: -Continue vancomycin -Possible SBP? Ultrasound abdomen and CT scan no evidence of ascites -Continue Primaxin, has a history of ESBL -Venous ultrasound bilateral extremities no evidence of DVT, but incomplete exam due to pain complaints -Blood cultures, urine cultures, bacterial antigens - Protonix 40 IV twice daily -Hyperammonemia, ammonia level still 90, continue rifaximin, lactulose -Plan on lumbar puncture, however she took Plavix, will have to wait 5 days, if her mentation does not improve by Tuesday we will proceed with lumbar puncture History of left shoulder fracture Right shoulder pain, will do x-ray Elevated blood sugars, add Lantus 10 units monitor blood sugars closely Mild dementia Peripheral vascular disease Chronic pain Recent history of COVID-19 positivity History of CAD, status post LAD stenting elevated troponin, chronic. I have a low index of suspicion for ACS. Will monitor patient on telemetry and checks her cardiac enzymes. Recheck EKG on the morning of June 25, 2021 Bilateral lower extremity excoriations with question of cellulitis. blood culture ?2 drawn in the emergency department pending. IV vancomycin to be dosed by pharmacy plus Zosyn 3.375 g IV every 6 hours. Nursing staff has been ordered to demarcate and 8 the margin of erythema daily descending thoracic aortic aneurysm. outpatient monitoring with her primary care physician or with a provider history of suicidal ideation Muscle spasm Gout CHF, ejection fraction 55-60% with grade 1 diastolic dysfunction. Strict I/O. Daily weight Diabetes. Will check fasting glucose every before meals and at bedtime and provide insulin sliding scale GERD/history of peptic ulcer disease Hyperlipidemia Hypertension Obesity. The patient becomes regarding lifestyle modification Right renal mass. Outpatient monitoring with her primary care physician or with a provider Left adrenal mass. Outpatient monitoring with her primary care physician or with a provider Neuropathy Nonalcoholic steatohepatitis now with radiographic evidence of liver cirrhosis -With evidence of portal hypertension -History of GI bleed secondary duodenal ulcer -Has chronic anemia, thrombocytopenia, LFT abnormalities, -Monitor platelet count, LFTs, INR History of adrenal insufficiency, monitor blood pressure, get serum cortisol History of gastrointestinal bleed -Not sure why she is on Plavix? -Hold for now History of DVT/pulmonary embolism, not on anticoagulation August 2019, repeat imaging showed resolution, off Eliquis History of vitamin D deficiency Degenerative disc disease Nephrolithiasis Macrocytosis. Check TSH, free T4, B12, folate level Thrombocytopenia. We will monitor platelet count intermittently DVT Proflex is. Contraindicated. I am holding pharmacological anticoagulation at this time due to her history of gastrointestinal bleed and no bilateral lower extremity CD or JOSE hose due to bilateral lower extremity excoriations with likely cellulitis Attestations Medical Necessity Statement*: Patient requires hospitalization for acute encephalopathy Coding Level of Care Code Acute Sharepoint Solutions Developer for [facility] Diagnoses Encephalopathy G93.40 Cellulitis L03.90 Acute encephalopathy G93.40 WOLFE (nonalcoholic steatohepatitis) K75.81 Thrombocytopenia D69.6 Fever R50.9 Fever type: unspecified History of GI bleed Z87.19 PUD (peptic ulcer disease) K27.9 Pulmonary emboli I26.99 Hypertension I10 Anxiety F41.9
[2021-06-26 17:10] LABS: Glucose Point of Care 331 mg/dL (70-110)
[2021-06-26 17:10] LABS: Glucose Point of Care 359 mg/dL (70-110)
[2021-06-26 17:10] LABS: Glucose Point of Care 254 mg/dL (70-110)
[2021-06-26 19:37] LABS: Vancomycin Trough 20.4 ug/mL (10-15)
--- NOTE | 2021-06-26 20:02 | PC.NURSE ---
Pharmacist notified of vac trough.
[2021-06-26 21:40] LABS: Glucose Point of Care 279 mg/dL (70-110)
--- NOTE | 2021-06-26 23:28 | PC.NURSE ---
Patient tearful about children. Patient states I need to see my son. He [place] of state. Patient also states, my daughter hates me. Patient initially wanted to refuse full Lactulose dose. Patient educated extensively about medication and why she needs it. Patient states, I'm tired of shitting all the time. Patient took 2/3 of ordered dose (30 ml) and refused the rest (15 ml). Rectal tube is ordered. inside plant supervisor notified. No rectal tube supplies available at this time.
[2021-06-27] VITALS (14 sets, daily range): BP systolic 110–144; BP diastolic 59–76; PULSE 91–111; RESP 16–20; TEMP 36.8–37.7; O2SAT 91–96
--- NOTE | 2021-06-27 00:22 | PC.PHAR ---
Pharmacokinetic dosing service Date: 06/27/21 Time: 29 Patient: Floor: Weight: 127 Kilograms Vancomycin single level analysis: Current dose being given: mg Current dosing interval: hrs Current infusion time (hrs): 1.5 Single level Trough Data: Trough level obtained: 20.4 mcg/ml Timing of trough - # of hrs before next dose: 1 Hrs Desired peak: 40 mcg/ml Desired trough: 15 mcg/ml Diagnosis: Relevant medical/social history: Cultures and sensitivities: Other labs: Estimated PK Parameters: New rate constant (allie): 0.045 hr-1 Half-life: 15.40 Hours Vd from levels: 114.30 Liters (0.7 L/kg) CLvanco=?? 5.143 L/hr Estimated New Dose and Interval Recommended dose: 3071.0 mg Recommended interval: 23.3 Hrs Patient response: Patient is responding to treatment [yes/no] wbc decreasing, S/SX reduced [yes/no] Renal function is stable/unstable Recommendations: Give Vancomycin 1500 mg q 18 hrs. Infuse over 1.5 hrs Expected Cpeak: 22.9 mcg/mL Expected Ctrough: 10.9 mcg/mL AUC 0-24 /LAMBERT Data: LAMBERT 0.5 mcg/mL:?? AUC/LAMBERT:? 777.8 LAMBERT 1.0 mcg/mL:?? AUC/LAMBERT:? 388.9 Recommended labs and intervals: Measure Bun and Scr 3 times/week. Renal dosing of other antibiotics (review renal dosing of other medications and list guidelines here): Thank you for the consult, will continue to follow. Lana Orona [facility]
[2021-06-27 03:27] LABS: Basophils % 0.1 %; Eosinophils # 0.3 10^3/uL (0.0-0.8); Eosinophils % 4.3 %; Hemoglobin 10.4 g/dL (11.5-15.3); Lymphocytes # 0.9 10^3/uL (0.8-4.8); Lymphocytes % 12.7 %; Mean Corpuscular HGB Conc 33.5 g/dL (30.0-36.0); Mean Corpuscular Hemoglobin 34.9 pg (28.0-34.0); Mean Platelet Volume 10.7 fL (7.4-10.4); Monocytes # 0.9 10^3/uL (0.2-0.9); Monocytes % 11.5 %; Neutrophils # 5.28 10^3/uL (1.8-7.7); Neutrophils % 71.1 %; Nucleated Red Blood Cells % 0 %; Platelet Count 77 10^3/cmm (130-400); Red Blood Count 2.98 10^6/uL (4.1-5.3); Red Cell Distribution Width 16.4 % (12.1-15.1); White Blood Count 7.4 10^3/uL (4.0-10.0)
[2021-06-27 03:41] LABS: INR 1.07 (0.8-1.2)
[2021-06-27 03:47] LABS: Ammonia 41 umol/L (11-51)
[2021-06-27 03:57] LABS: Alanine Aminotransferase 31 U/L (0-33); Albumin Level 2.6 g/dL (3.5-5.2); Alkaline Phosphatase 279 IU/L (35-105); Anion Gap 13.4 (5-19); Aspartate Amino Transferase 43 U/L (0-32); Blood Urea Nitrogen 23 mg/dL (8-23); Calcium 8.4 mg/dL (8.5-10.5); Carbon Dioxide 24 mmol/L (22-29); Chloride 99 mmol/L (98-107); Globulin 3.4 g/dL (1.3-4.6); Glucose 243 mg/dL (65-115); Magnesium 1.5 mg/dL (1.7-2.3); NT Pro B Type Natriuretic Pept 426 pg/mL (0-125); Osmolality Calculated 288 mOsm/kg (285-295); Phosphorus 2.4 mg/dL (2.5-4.5); Potassium 3.4 mmol/L (3.5-5.1); Sodium 133 mmol/L (136-145)
[2021-06-27] MEDS: HYDROmorphone 1 mg/mL INJ 1 mL 0.4 MG IVP ×2 (04:46→09:44)
[2021-06-27 08:43] LABS: Glucose Point of Care 247 mg/dL (70-110)
[2021-06-27] MEDS: lactulose oral liq 20 gm/30 mL UDC 30 GM PO (09:01)
[2021-06-27] MEDS: insulin glargine 100 units/1 mL 15 UNIT SUBCUT (09:02)
[2021-06-27] MEDS: insulin lispro 100 unit/1 mL SUBCUT ×4 (09:02→21:06)
[2021-06-27] MEDS: bumetanide 1 mg Tablet PO ×2 (09:03→17:09)
[2021-06-27] MEDS: magnesium sulfate premix 4 GM/100 ML PREMIX IV (09:03)
--- NOTE | 2021-06-27 12:01 | PM.PN ---
Subjective Subjective: Patient was seen this morning, she is much more alert and awake, following all commands, alert to person, to place, to time, she tells me that she continues to have pain in her bilateral knees, and in her left shoulder, she tells me that I stopped her Dilaudid, however and her home Percocet does not help, she wants me to decrease her lactulose dosing Vitals/I&O/Wt Last Vital Signs Temp 99.8 F H 06/27/21 11:21 Pulse 105 H 06/27/21 11:21 Resp 16 06/27/21 11:21 BP 122/68 06/27/21 11:21 Pulse Ox 95 06/27/21 11:21 06/26/21 06/27/21 06/27/21 22:59 06:59 14:59 Intake Total 160 / 1179.0909 810 / 1989.0909 120 / 120 Output Total 360 / 1260 225 / 1485 Balance -200 / -80.9091 585 / 504.0909 120 / 120 Physical Exam Const: COMMON NORMALS: no acute distress and patient oriented x3 Resp: COMMON NORMALS: normal respiratory effort, No retractions, No use of accessory muscles and clear to auscultation bilaterally AUSCULTATION: clear to auscultation bilaterally Cardio: COMMON NORMALS: regular rate, regular rhythm, S1 normal heart sound present and S2 normal heart sound present RATE: regular rate RHYTHM: regular rhythm HEART SOUNDS: S1 normal heart sound present and S2 normal heart sound present GI: COMMON NORMALS: Normal to inspection, nondistended, normoactive bowel sounds present, Soft to palpation and non-tender PALPATION: Yes Soft to palpation Neuro: COMMON NORMALS: patient oriented x3 Psych: COMMON NORMALS: mental status grossly normal Skin: NARRATIVE SKIN EXAM: Bilateral lower extremity, 1+ pitting edema, cellulitic area is improving Urinary Catheter Management: Khan: Cath Placed During This Visit: yes Reason for Continuing Indwelling Catheter: Assist Healing of Perineal & Sacral Wounds- Incontinent Patients Urinary Catheter Date of Insertion: 06/25/21 Urinary Catheter Time of Insertion: 12:44 Data : 06/27/21 03:15 06/27/21 03:15 Micro: Microbiology 06/24/21 18:00 Urine Culture - Final Urine Catheterized 06/25/21 08:37 Blood Culture - Preliminary Blood NEGATIVE TO DATE 06/25/21 08:30 Blood Culture - Preliminary Blood NEGATIVE TO DATE A&P Assessment and plan (1) Encephalopathy: Status: Acute (2) Cellulitis: Status: Acute (3) Acute encephalopathy: Status: Acute (4) WOLFE (nonalcoholic steatohepatitis): Status: Acute (5) Thrombocytopenia: Status: Acute (6) Fever: Status: Acute Qualifiers: Fever type: unspecified Qualified Code(s): R50.9 - Fever, unspecified (7) History of GI bleed: Status: Acute (8) PUD (peptic ulcer disease): Status: Acute (9) Pulmonary emboli: Status: Acute (10) Hypertension: Status: Acute (11) Anxiety: Status: Acute Plan Acute encephalopathy -Mentation back to baseline, low-grade fevers overnight -History of ESBL E. coli UTIs -History of liver cirrhosis with hyperammonemia -Bilateral extremity cellulitis -During her last hospitalization had episodes of acute encephalopathy Plan: -Continue vancomycin -Unlikely SBP, ultrasound abdomen and CT scan no evidence of ascites -Continue Primaxin, has a history of ESBL -Venous ultrasound bilateral extremities no evidence of DVT, but incomplete exam due to pain complaints -Blood cultures, urine cultures, bacterial antigens - Protonix 40 IV twice daily -Hyperammonemia, ammonia 40, continue rifaximin, lactulose decreased to 30 twice daily -Does not require lumbar puncture as mentation is back to normal, continue to hold Plavix given history of GI bleed, thrombocytopenia, anemia, liver cirrhosis History of left shoulder fracture Right shoulder pain, will do x-ray Elevated blood sugars, add Lantus 10 units monitor blood sugars closely Mild dementia Peripheral vascular disease Chronic pain Recent history of COVID-19 positivity History of CAD, status post LAD stenting elevated troponin, chronic. I have a low index of suspicion for ACS. Will monitor patient on telemetry and checks her cardiac enzymes. Recheck EKG on the morning of June 25, 2021 Bilateral lower extremity excoriations with question of cellulitis. blood culture ?2 drawn in the emergency department pending. IV vancomycin to be dosed by pharmacy plu,. Nursing staff has been ordered to demarcate and 8 the margin of erythema daily descending thoracic aortic aneurysm. outpatient monitoring with her primary care physician or with a provider history of suicidal ideation Muscle spasm Gout CHF, ejection fraction 55-60% with grade 1 diastolic dysfunction. Strict I/O. Daily weight Diabetes. Will check fasting glucose every before meals and at bedtime and provide insulin sliding scale GERD/history of peptic ulcer disease Hyperlipidemia Hypertension Obesity. The patient becomes regarding lifestyle modification Right renal mass. Outpatient monitoring with her primary care physician or with a provider Left adrenal mass. Outpatient monitoring with her primary care physician or with a provider Neuropathy Nonalcoholic steatohepatitis now with radiographic evidence of liver cirrhosis -With evidence of portal hypertension -History of GI bleed secondary duodenal ulcer -Has chronic anemia, thrombocytopenia, LFT abnormalities, -Monitor platelet count, LFTs, INR History of adrenal insufficiency, monitor blood pressure, get serum cortisol History of gastrointestinal bleed -Not sure why she is on Plavix? -Hold for now History of DVT/pulmonary embolism, not on anticoagulation August 2019, repeat imaging showed resolution, off Eliquis History of vitamin D deficiency Degenerative disc disease Nephrolithiasis Macrocytosis. Check TSH, free T4, B12, folate level Thrombocytopenia. We will monitor platelet count intermittently DVT Proflex is. Contraindicated. I am holding pharmacological anticoagulation at this time due to her history of gastrointestinal bleed and no bilateral lower extremity CD or JOSE hose due to bilateral lower extremity excoriations with likely cellulitis Attestations Medical Necessity Statement*: Patient requires hospitalization for encephalopathy, cellulitis, UTI, hyperammonemia Coding Level of Care Code Acute Product Development Engineer for [facility] Fw Diagnoses Encephalopathy G93.40 Cellulitis L03.90 Acute encephalopathy G93.40 WOLFE (nonalcoholic steatohepatitis) K75.81 Thrombocytopenia D69.6 Fever R50.9 Fever type: unspecified History of GI bleed Z87.19 PUD (peptic ulcer disease) K27.9 Pulmonary emboli I26.99 Hypertension I10 Anxiety F41.9
--- NOTE | 2021-06-27 12:14 | PC.SOCIAL ---
IMM update IMM updated with Guardian Bryant. Verbalized an understanding. Initialled, dated, timed, and placed in chart.
[2021-06-27 12:34] LABS: Glucose Point of Care 310 mg/dL (70-110)
[2021-06-27] MEDS: nystatin powder 15 gm Btl TOPICAL (13:56)
[2021-06-27] MEDS: oxyCODONE 5 mg IR Tab/Cap PO (16:00)
[2021-06-27 16:51] LABS: Glucose Point of Care 323 mg/dL (70-110)
[2021-06-27] MEDS: quetiapine 25 mg Tablet 50 MG PO (20:46)
[2021-06-27] MEDS: pantoprazole DR 40 mg Tablet PO (20:46)
[2021-06-27] MEDS: donepezil 5 MG Tablet PO (20:46)
[2021-06-27 20:49] LABS: Glucose Point of Care 229 mg/dL (70-110)
[2021-06-27] MEDS: morphine 4 mg/mL SDV 1 mL 1 MG IVP (21:36)
[2021-06-28] VITALS (10 sets, daily range): BP systolic 109–145; BP diastolic 60–74; PULSE 82–101; RESP 16–20; TEMP 36.3–37.5; O2SAT 93–98
[2021-06-28 03:34] LABS: Basophils % 0.2 %; Eosinophils # 0.1 10^3/uL (0.0-0.8); Eosinophils % 2.2 %; Hematocrit 35.4 % (37.0-47.0); Hemoglobin 10.6 g/dL (11.5-15.3); Lymphocytes # 0.7 10^3/uL (0.8-4.8); Lymphocytes % 12.5 %; Mean Corpuscular HGB Conc 29.9 g/dL (30.0-36.0); Mean Corpuscular Hemoglobin 33.8 pg (28.0-34.0); Mean Corpuscular Volume 112.7 fl (81-99); Mean Platelet Volume 10.4 fL (7.4-10.4); Monocytes # 0.6 10^3/uL (0.2-0.9); Monocytes % 11.4 %; Neutrophils # 3.95 10^3/uL (1.8-7.7); Neutrophils % 73.5 %; Nucleated Red Blood Cells % 0 %; Platelet Count 74 10^3/cmm (130-400); Red Blood Count 3.14 10^6/uL (4.1-5.3); Red Cell Distribution Width 15.9 % (12.1-15.1); White Blood Count 5.4 10^3/uL (4.0-10.0)
[2021-06-28 03:58] LABS: Slide Review Slide Review Perform
[2021-06-28 03:59] LABS: Alanine Aminotransferase 26 U/L (0-33); Alkaline Phosphatase 277 IU/L (35-105); Aspartate Amino Transferase 31 U/L (0-32); Blood Urea Nitrogen 20 mg/dL (8-23); Calcium 8.2 mg/dL (8.5-10.5); Carbon Dioxide 21 mmol/L (22-29); Chloride 97 mmol/L (98-107); Globulin 3.5 g/dL (1.3-4.6); Glucose 233 mg/dL (65-115); Magnesium 1.6 mg/dL (1.7-2.3); NT Pro B Type Natriuretic Pept 262 pg/mL (0-125); Osmolality Calculated 276 mOsm/kg (285-295); Phosphorus 2.3 mg/dL (2.5-4.5); Sodium 128 mmol/L (136-145); Total Bilirubin 1.1 mg/dL (0.15-1.2); Total Protein 5.5 g/dL (6.6-8.7)
[2021-06-28 04:01] LABS: Ammonia 71 umol/L (11-51)
[2021-06-28 04:02] LABS: Anion Gap 13.4 (5-19); Potassium 3.4 mmol/L (3.5-5.1)
[2021-06-28 07:14] LABS: Glucose Point of Care 280 mg/dL (70-110)
[2021-06-28 07:14] LABS: Glucose Point of Care 280 mg/dL (70-110)
[2021-06-28] MEDS: oxyCODONE 5 mg IR Tab/Cap PO (08:37)
[2021-06-28] MEDS: atorvastatin 40 mg Tablet PO (08:37)
[2021-06-28] MEDS: insulin lispro 100 unit/1 mL SUBCUT ×4 (08:37→21:47)
[2021-06-28] MEDS: allopurinol 300 mg Tablet PO (08:37)
[2021-06-28] MEDS: insulin glargine 100 units/1 mL 20 UNIT SUBCUT (08:37)
[2021-06-28] MEDS: magnesium sulfate premix 4 GM/100 ML PREMIX IV (08:39)
[2021-06-28] MEDS: pantoprazole DR 40 mg Tablet PO ×2 (08:43→20:07)
[2021-06-28] MEDS: lactulose oral liq 20 gm/30 mL UDC 30 GM PO ×2 (08:51→18:16)
[2021-06-28 12:05] LABS: Glucose Point of Care 297 mg/dL (70-110)
--- NOTE | 2021-06-28 13:30 | PM.PN ---
Subjective Medications: Medication Review Details: Patient was seen this morning, she tells me that she is not feeling well this morning, she does not have an appetite, she tells me that she hurts all over the oxycodone that she is taking is not helping with her pain Vitals/I&O/Wt Last Vital Signs Temp 98.6 F 06/28/21 11:37 Pulse 101 H 06/28/21 11:37 Resp 18 06/28/21 11:37 BP 119/74 06/28/21 11:37 Pulse Ox 96 06/28/21 11:37 06/27/21 06/28/21 06/28/21 22:59 06:59 14:59 Intake Total 220 / 647.638 350 / 997.514 936.0726 / 849.0909 Output Total 1300 / 1300 800 / 2100 Balance -1080 / -652.362 -450 / -1102.075 411.3070 / 849.0909 Weight last 48 hrs Weight 124.284 kg Physical Exam Const: COMMON NORMALS: no acute distress and patient oriented x3 Resp: COMMON NORMALS: normal respiratory effort, No retractions, No use of accessory muscles and clear to auscultation bilaterally AUSCULTATION: clear to auscultation bilaterally Cardio: COMMON NORMALS: regular rate, regular rhythm, S1 normal heart sound present and S2 normal heart sound present RATE: regular rate RHYTHM: regular rhythm HEART SOUNDS: S1 normal heart sound present and S2 normal heart sound present GI: COMMON NORMALS: Normal to inspection, nondistended, normoactive bowel sounds present, Soft to palpation and non-tender PALPATION: Yes Soft to palpation Extremity: COMMON NORMALS: no pedal edema Neuro: COMMON NORMALS: patient oriented x3 Psych: COMMON NORMALS: mental status grossly normal Skin: NARRATIVE SKIN EXAM: Left leg, cellulitic area is improving Urinary Catheter Management: Khan: Cath Placed During This Visit: yes Reason for Continuing Indwelling Catheter: Other Urinary Catheter Date of Insertion: 06/25/21 Urinary Catheter Time of Insertion: 12:44 Data : 06/28/21 03:20 06/28/21 03:20 Micro: Microbiology 06/24/21 18:00 Urine Culture - Final Urine Catheterized A&P Assessment and plan (1) Encephalopathy: Status: Acute (2) Cellulitis: Status: Acute (3) Acute encephalopathy: Status: Acute (4) WOLFE (nonalcoholic steatohepatitis): Status: Acute (5) Thrombocytopenia: Status: Acute (6) Fever: Status: Acute Qualifiers: Fever type: unspecified Qualified Code(s): R50.9 - Fever, unspecified (7) History of GI bleed: Status: Acute (8) PUD (peptic ulcer disease): Status: Acute (9) Pulmonary emboli: Status: Acute (10) Hypertension: Status: Acute (11) Anxiety: Status: Acute Plan Acute encephalopathy -Mentation back to baseline, -History of ESBL E. coli UTIs -History of liver cirrhosis with hyperammonemia -Bilateral extremity cellulitis -During her last hospitalization had episodes of acute encephalopathy Plan: -Continue vancomycin -Unlikely SBP, ultrasound abdomen and CT scan no evidence of ascites -Continue Primaxin, has a history of ESBL, follow urine cultures -Venous ultrasound bilateral extremities no evidence of DVT, but incomplete exam due to pain complaints -Blood cultures, urine cultures, bacterial antigens - Protonix 40 IV twice daily -Hyperammonemia, ammonia 70, continue rifaximin, lactulose 30 twice daily Today has hyponatremia, hypomagnesemia,, hypokalemia, hold diuretics for today, replace electrolytes History of left shoulder fracture Right shoulder pain, multiple pain complaints, increase oxycodone to 7.5 every 6 hours Elevated blood sugars, add Lantus 20 units monitor blood sugars closely Mild dementia Peripheral vascular disease Chronic pain Recent history of COVID-19 positivity History of CAD, status post LAD stenting elevated troponin, chronic. I have a low index of suspicion for ACS. Continue to monitor Bilateral lower extremity excoriations with question of cellulitis. blood culture ?2 drawn in the emergency department pending. Continue vancomycin, Primaxin, wound care, wet-to-dry dressings -Overall improving descending thoracic aortic aneurysm. outpatient monitoring with her primary care physician or with a provider history of suicidal ideation Muscle spasm Gout CHF, ejection fraction 55-60% with grade 1 diastolic dysfunction. Strict I/O. Daily weight Diabetes. Will check fasting glucose every before meals and at bedtime and provide insulin sliding scale GERD/history of peptic ulcer disease Hyperlipidemia Hypertension Obesity. The patient becomes regarding lifestyle modification Right renal mass. Outpatient monitoring with her primary care physician or with a provider Left adrenal mass. Outpatient monitoring with her primary care physician or with a provider Neuropathy Nonalcoholic steatohepatitis now with radiographic evidence of liver cirrhosis -With evidence of portal hypertension -History of GI bleed secondary duodenal ulcer -Has chronic anemia, thrombocytopenia, LFT abnormalities, -Monitor platelet count, LFTs, INR History of adrenal insufficiency, monitor blood pressure, get serum cortisol History of gastrointestinal bleed -Not sure why she is on Plavix? -Hold for now History of DVT/pulmonary embolism, not on anticoagulation August 2019, repeat imaging showed resolution, off Eliquis History of vitamin D deficiency Degenerative disc disease Nephrolithiasis Macrocytosis. Check TSH, free T4, B12, folate level Thrombocytopenia. We will monitor platelet count intermittently DVT Proflex is. Contraindicated. I am holding pharmacological anticoagulation at this time due to her history of gastrointestinal bleed and no bilateral lower extremity CD or JOSE hose due to bilateral lower extremity excoriations with likely cellulitis Attestations Medical Necessity Statement*: Patient requires hospitalization for cellulitis, acute encephalopathy, UTI, deconditioning, pain complaints, Coding Level of Care Code Acute Pharmacy Benefits Coordinator for [facility] Diagnoses Encephalopathy G93.40 Cellulitis L03.90 Acute encephalopathy G93.40 WOLFE (nonalcoholic steatohepatitis) K75.81 Thrombocytopenia D69.6 Fever R50.9 Fever type: unspecified History of GI bleed Z87.19 PUD (peptic ulcer disease) K27.9 Pulmonary emboli I26.99 Hypertension I10 Anxiety F41.9
[2021-06-28] MEDS: oxyCODONE 5 mg IR Tab/Cap 7.5 MG PO ×2 (16:32→21:54)
[2021-06-28] MEDS: ondansetron 2 mg/ML SDV 2 mL 4 MG IVP (16:32)
[2021-06-28 16:57] LABS: Glucose Point of Care 321 mg/dL (70-110)
[2021-06-28] MEDS: quetiapine 25 mg Tablet 50 MG PO (20:07)
[2021-06-28] MEDS: donepezil 5 MG Tablet PO (20:07)
[2021-06-28 21:21] LABS: Glucose Point of Care 429 mg/dL (70-110)
[2021-06-29] VITALS (7 sets, daily range): BP systolic 125–156; BP diastolic 66–71; PULSE 81–100; RESP 17–20; TEMP 36.4–37.1; O2SAT 90–95
[2021-06-29 01:41] LABS: Ammonia 43 umol/L (11-51)
[2021-06-29 01:48] LABS: Alanine Aminotransferase 21 U/L (0-33); Albumin Level 2.2 g/dL (3.5-5.2); Alkaline Phosphatase 289 IU/L (35-105); Anion Gap 9.3 (5-19); Aspartate Amino Transferase 24 U/L (0-32); Blood Urea Nitrogen 21 mg/dL (8-23); C Reactive Protein 118.1 mg/L (0.0-4.9); Calcium 9.2 mg/dL (8.5-10.5); Carbon Dioxide 27 mmol/L (22-29); Chloride 100 mmol/L (98-107); Globulin 3.6 g/dL (1.3-4.6); Glucose 318 mg/dL (65-115); Magnesium 1.8 mg/dL (1.7-2.3); NT Pro B Type Natriuretic Pept 195 pg/mL (0-125); Osmolality Calculated 289 mOsm/kg (285-295); Potassium 4.3 mmol/L (3.5-5.1); Sodium 132 mmol/L (136-145); Total Bilirubin 0.8 mg/dL (0.15-1.2); Total Protein 5.8 g/dL (6.6-8.7)
[2021-06-29 05:51] LABS: Basophils % 0.2 %; Eosinophils # 0.1 10^3/uL (0.0-0.8); Eosinophils % 2.5 %; Hematocrit 30.4 % (37.0-47.0); Hemoglobin 9.8 g/dL (11.5-15.3); Lymphocytes # 0.8 10^3/uL (0.8-4.8); Lymphocytes % 13.6 %; Mean Corpuscular HGB Conc 32.2 g/dL (30.0-36.0); Mean Corpuscular Hemoglobin 34.1 pg (28.0-34.0); Mean Corpuscular Volume 105.9 fl (81-99); Mean Platelet Volume 10.6 fL (7.4-10.4); Monocytes # 0.7 10^3/uL (0.2-0.9); Monocytes % 13.2 %; Neutrophils # 3.87 10^3/uL (1.8-7.7); Neutrophils % 70.1 %; Nucleated Red Blood Cells % 0 %; Platelet Count 79 10^3/cmm (130-400); Red Blood Count 2.87 10^6/uL (4.1-5.3); Red Cell Distribution Width 15.8 % (12.1-15.1); White Blood Count 5.5 10^3/uL (4.0-10.0)
[2021-06-29 06:52] LABS: Glucose Point of Care 279 mg/dL (70-110)
[2021-06-29 07:44] LABS: Vancomycin Trough 17.8 ug/mL (10-15)
[2021-06-29] MEDS: insulin glargine 100 units/1 mL 20 UNIT SUBCUT (08:13)
[2021-06-29] MEDS: vancomycin 1,250 MG/250 ML PIGGYBACK 250 MG IV (08:13)
[2021-06-29] MEDS: insulin lispro 100 unit/1 mL SUBCUT ×4 (08:13→21:02)
[2021-06-29] MEDS: allopurinol 300 mg Tablet PO (08:14)
[2021-06-29] MEDS: pantoprazole DR 40 mg Tablet PO ×2 (08:14→20:36)
[2021-06-29] MEDS: lactulose oral liq 20 gm/30 mL UDC 30 GM PO ×2 (08:14→18:13)
[2021-06-29] MEDS: atorvastatin 40 mg Tablet PO (08:14)
[2021-06-29] MEDS: oxyCODONE 5 mg IR Tab/Cap 7.5 MG PO ×3 (08:52→20:38)
[2021-06-29 11:35] LABS: Glucose Point of Care 311 mg/dL (70-110)
--- NOTE | 2021-06-29 11:51 | PC.SOCIAL ---
IMM update IMM updated with Bryant Parson. Initialled, dated, timed, and placed in chart.
[2021-06-29] MEDS: acetaminophen 325 mg Tablet 650 MG PO (13:29)
--- NOTE | 2021-06-29 14:35 | P.DS_ITS ---
Discharge Providers Date of Admission: 06/24/21 21:19 Date of Discharge: June 29, 2021 Attending Provider at Admission: Sherri Rivas DO Attending Provider at Discharge: Jairo Fuentes Primary Care Provider: Rubi Saenz DO Diagnoses at Discharge Discharge Diagnosis (1) Encephalopathy: Status: Acute (2) Cellulitis: Status: Acute (3) Acute encephalopathy: Status: Acute (4) WOLFE (nonalcoholic steatohepatitis): Status: Acute (5) Thrombocytopenia: Status: Acute (6) Fever: Status: Acute Qualifiers: Fever type: unspecified Qualified Code(s): R50.9 - Fever, unspecified (7) History of GI bleed: Status: Acute (8) PUD (peptic ulcer disease): Status: Acute (9) Pulmonary emboli: Status: Acute (10) Hypertension: Status: Acute (11) Anxiety: Status: Acute Reason for Visit Reason for Visit: AMS/ CONFUSED Hospital Course Hospital Course 71-year-old lady was admitted for assessment management of acute encephalopathy, with noted hyperammonemia on presentation, possible bilateral lower extremity cellulitis, dehydration, hemoconcentration. Urine culture was sent as well with history of ESBL infections, although urine not suggestive of UTI. No growth in urine culture. He was treated with lactulose, rifaximin due to hyperammonemia, noted liver cirrhosis. He was treated with Zosyn, vancomycin for bilateral lowe r extremity cellulitis which resolved. Has chronic bilateral lower extremity venous stasis ulcers. MELINA noted without evidence of lower extremity ischemia in February 2021. Her mental status improved. She is awake and interacting. Bothered by arthritis pain. States that she changes her dressings on her own at the residential. Recommend dressing changes with Hydrofera Blue due to small amount of serous discharge from venous stasis ulcerations, cover with ABD, gauze. Follow-up with wound care. Caution with medications that may contribute to encephalopathy especially in the setting of liver cirrhosis. Stop cyclobenzaprine. Please consider referral for follow-up with pathology. Continue lactulose, rifaximin. Incidental findings including left adrenal mass, 2.6 cm. Additional evaluation with renal MRI suggested. Similarly incidentally noted slight enlargement of 5.5 cm right lower renal mass containing higher than water density. Smaller left renal mass mass also noted possibly containing higher than water density as before. If not previously performed, recommend non-emergent follow-up MRI without and with contrast. Follow-up regarding macrocytic anemia. B12, folic acid, TSH normal. Follow-up regarding thrombocytopenia. Other chronic conditions. Continue work on optimization of care. Possibly consider change of facility as per her request as discussed with guardian as well. Physical Exam Const: COMMON NORMALS: alert GENERAL APPEARANCE: cooperative NUTRITIONAL APPEARANCE: obese ORIENTATION/CONSCIOUSNESS: Yes awake HENMT: COMMON NORMALS: normocephalic, EAC's normal, Normal external nose present and moist oral mucous membranes HEAD & SCALP: normocephalic NOSE: Normal external nose present EXTERNAL AUDITORY CANAL: EAC's normal Neck/C-Spine: COMMON NORMALS: no meningeal signs Chest: CHEST: Yes Symmetrical chest wall rise Resp: COMMON NORMALS: clear to auscultation bilaterally AUSCULTATION: clear to auscultation bilaterally Cardio: COMMON NORMALS: regular rate, regular rhythm and No murmurs present (Cardio) RATE: regular rate RHYTHM: regular rhythm GI: COMMON NORMALS: Normal to inspection, nondistended, normoactive bowel sounds present, Soft to palpation and non-tender PALPATION: Yes Soft to palpation Extremity: COMMON NORMALS: no pedal edema Neuro: COMMON NORMALS: moves all extremities SENSORIUM/ORIENTATION: Yes alert MENINGEAL SIGNS: Yes no meningeal signs Psych: COMMON NORMALS: mental status grossly normal MOOD & AFFECT: Yes anxious Skin: COMMON NORMALS: no wounds WOUNDS: Yes wounds noted (Shallow ulcerations L anterior+lat [place], min pink disc BL mid [place]amo, L dt ft) Urinary Catheter Management: Khan: Cath Placed During This Visit: yes, but has since been removed by the nurse Reason for Continuing Indwelling Catheter: Decision to DC Catheter Urinary Catheter Date of Insertion: 06/25/21 Urinary Catheter Time of Insertion: 12:44 Date Urinary Catheter Removed: 06/28/21 Time Urinary Catheter Discontinued: 18:00 Discharge Data Studies Completed and Pending Completed Studies During Hospitalization Category Date Time Status CT abdomen pelvis wo con [id number] Stat Cat Scan 06/24/21 18:[address] head wo con* [id number] Stat Cat Scan 06/24/21 16:33 Completed XR chest 1V portable [id number] Stat Exams 06/24/21 16:07 Completed XR shoulder RT min 2V* [id number] Routine Exams 06/26/21 09:09 Completed US abdomen lmt fluid [id number] Routine Ultrasound 06/25/21 08:57 Completed US venous duplex lower extremity bilat [CV venous Ultrasound 06/25/21 11:12 [place] [id number]] Routine Pending at discharge Category Date Time Status Ammonia AM LABS Lab 06/30/21 04:00 Ordered Ammonia AM LABS Lab 07/01/21 04:00 Ordered Blood Culture Stat Lab 06/24/21 16:42 Results Blood Culture Stat Lab 06/25/21 08:30 Results C Reactive Protein AM LABS Lab 06/30/21 04:00 Ordered C Reactive Protein AM LABS Lab 07/01/21 04:00 Ordered Complete Blood Count w/Auto AM LABS Lab 06/30/21 04:00 Ordered Complete Blood Count w/Auto AM LABS Lab 07/01/21 04:00 Ordered Comprehensive Metabolic Panel AM LABS Lab 06/30/21 04:00 Ordered Comprehensive Metabolic Panel AM LABS Lab 07/01/21 04:00 Ordered Magnesium AM LABS Lab 06/30/21 04:00 Ordered Magnesium AM LABS Lab 07/01/21 04:00 Ordered NT Pro B Type Natriuretic Pept QAM Lab 06/30/21 06:00 Ordered NT Pro B Type Natriuretic Pept QAM Lab 07/01/21 06:00 Ordered Phosphorus AM LABS Lab 06/30/21 04:00 Ordered Phosphorus AM LABS Lab 07/01/21 04:00 Ordered SARS Covid-2 Antigen Routine Lab 06/29/21 14:00 Received Sputum Culture and Gram Stain Stat Lab 06/25/21 08:04 Uncollected Vancomycin Trough Timed Lab 07/01/21 13:00 Ordered Radiology Impressions Chest X-Ray 06/24/21 16:07 IMPRESSION: No acute findings. Head CT 06/24/21 16:33 IMPRESSION: 1. No acute intracranial finding. 2. Left mastoid disease again evident. Interval improvement in the chronic sinus disease. Abdomen/Pelvis CT 06/24/21 18:16 IMPRESSION: 1. No obvious acute disease. Numerous chronic abnormalities still present, including probable liver cirrhosis and apparent portal venous hypertension. 2. No significant change in the 2.6 cm left adrenal mass. Suggestion of evaluation of this mass at the time of follow-up renal MRI. 3. Possible interval slight enlargement of the 5.5 cm right lower renal mass containing higher than water density. Smaller left renal mass mass also noted possibly containing higher than water density as before. If not previously performed, recommend non-emergent follow-up MRI without and with contrast. A few renal stones still present. 4. Interval appearance of a small gas bubble in the urinary bladder raising the possibility of its recent catheterization. 5. Cholecystectomy still likely. Questionable edema or bruising in the left hip region. Other findings detailed above. COMMENTS: Consistent with the [employer]'s Incidental Findings Committee white paper (J Am Valentín Radiol 2018): Any incidental renal lesion less than 1 cm or classified as too small to characterize, or any incidental cystic renal lesion characterized as simple-appearing, is likely benign. No follow-up imaging is recommended for these lesions per consensus recommendations based on imaging criteria. Abdomen Ultrasound 06/25/21 08:57 IMPRESSION: No peritoneal ascites. Shoulder X-Ray 06/26/21 09:09 Impression: 1. Calcification surrounding the right humeral head consistent with adhesive capsulitis. 2. Osteoarthritic change of the right glenohumeral joint. Laboratory Results WBC 5.5 10^3/uL (4.0-10.0) 06/29/21 01:10 RBC 2.87 10^6/uL (4.1-5.3) L 06/29/21 01:10 Hgb 9.8 g/dL (11.5-15.3) L 06/29/21 01:10 Hct 30.4 % (37.0-47.0) L 06/29/21 01:10 MCV 105.9 fl (81-99) H D 06/29/21 01:10 MCH 34.1 pg (28.0-34.0) H 06/29/21 01:10 MCHC 32.2 g/dL (30.0-36.0) D 06/29/21 01:10 RDW 15.8 % (12.1-15.1) H 06/29/21 01:10 Plt Count 79 10^3/cmm (130-400) L 06/29/21 01:10 MPV 10.6 fL (7.4-10.4) H 06/29/21 01:10 Neut % (Auto) 70.1 % 06/29/21 01:10 Lymph % (Auto) 13.6 % 06/29/21 01:10 Esmeralda % (Auto) 13.2 % 06/29/21 01:10 Eos % (Auto) 2.5 % 06/29/21 01:10 Baso % (Auto) 0.2 % 06/29/21 01:10 Neut # (Auto) 3.87 10^3/uL (1.8-7.7) 06/29/21 01:10 Lymph # (Auto) 0.8 10^3/uL (0.8-4.8) 06/29/21 01:10 Esmeralda # (Auto) 0.7 10^3/uL (0.2-0.9) 06/29/21 01:10 Eos # (Auto) 0.1 10^3/uL (0.0-0.8) 06/29/21 01:10 Baso # (Auto) 0.0 10^3/uL (0.0-0.1) 06/29/21 01:10 Nucleated RBC % (auto) 0 % 06/29/21 01:10 Nucleated RBCs # 0.0 /100WBC 06/29/21 01:10 ESR 37 mm/hr (0-15) H 06/25/21 05:52 PT 15.50 SECONDS (12.1-14.9) H 06/28/21 03:20 INR 1.20 (0.8-1.2) 06/28/21 03:20 Specimen Type Arterial 06/24/21 20:06 Sample Site Radial, left 06/24/21 20:06 ABG pH 7.50 (7.35-7.45) H 06/24/21 20:06 ABG pCO2 40.4 mmHg (35-45) 06/24/21 20:06 ABG pO2 102.0 mmHg (80.0-100.0) H 06/24/21 20:06 ABG HCO3 31.4 mmol/L (22-26) H 06/24/21 20:06 ABG Base Excess 7.6 mmol/L (-2.0-2.0) H 06/24/21 20:06 See Test Pos 06/24/21 20:06 Hematocrit 35.9 % (37-47) L 06/24/21 20:06 O2 Delivery Device Nc 06/24/21 20:06 O2 Liters/Min 3.0 % 06/24/21 20:06 Vocational [employer] Instructor ID [place] 06/24/21 20:06 Sodium 132 mmol/L (136-145) L 06/29/21 01:10 Potassium 4.3 mmol/L (3.5-5.1) 06/29/21 01:10 Chloride 100 mmol/L (98-107) 06/29/21 01:10 Carbon Dioxide 27 mmol/L (22-29) 06/29/21 01:10 Anion Gap 9.3 (5-19) 06/29/21 01:10 BUN 21 mg/dL (8-23) 06/29/21 01:10 Creatinine 0.7 mg/dL (0.5-0.9) 06/29/21 01:10 GFR Calculation Not Reportable 06/29/21 01:10 Glucose 318 mg/dL (65-115) H 06/29/21 01:10 POC Glucose 311 mg/dL (70-110) H 06/29/21 11:28 Calculated Osmolality 289 mOsm/kg (285-295) 06/29/21 01:10 Lactic Acid 1.7 mmol/L (0.5-2.2) 06/24/21 17:45 Calcium 9.2 mg/dL (8.5-10.5) 06/29/21 01:10 Phosphorus 2.0 mg/dL (2.5-4.5) L 06/29/21 01:10 Magnesium 1.8 mg/dL (1.7-2.3) 06/29/21 01:10 Total Bilirubin 0.8 mg/dL (0.15-1.2) 06/29/21 01:10 AST 24 U/L (0-32) 06/29/21 01:10 ALT 21 U/L (0-33) 06/29/21 01:10 Alkaline Phosphatase 289 IU/L (35-105) H 06/29/21 01:10 Ammonia 43 umol/L (11-51) 06/29/21 01:10 Creatine Kinase 76 U/L (26-192) 06/24/21 20:10 CK-MM (CK-3) Cancelled 06/24/21 20:10 CK-MB (CK-2) Cancelled 06/24/21 20:10 CK-BB (CK-1) Cancelled 06/24/21 20:10 Creatine Kinase Interp Cancelled 06/24/21 20:10 Troponin T Baseline 26 ng/L (0-10) H 06/24/21 17:45 Troponin T 120 Minute 28.79 ng/L (0-10) H 06/24/21 20:00 Delta Troponin T 2.79 ABS# (0-10) 06/24/21 20:00 Troponin T Hi Sens 6Hr 29.56 ng/L (0-10) H 06/24/21 22:35 Troponin T Hi Sens 6Hr Delta 3.56 ng/L (0-12) 06/24/21 22:35 C-Reactive Protein 118.1 mg/L (0.0-4.9) H 06/29/21 01:10 NT-Pro-B Natriuret Pep 195 pg/mL (0-125) H 06/29/21 01:10 Total Protein 5.8 g/dL (6.6-8.7) L 06/29/21 01:10 Albumin 2.2 g/dL (3.5-5.2) L 06/29/21 01:10 Globulin 3.6 g/dL (1.3-4.6) 06/29/21 01:10 Lipase 11 U/L (13-60) L 06/24/21 17:45 Vitamin B12 542 pg/mL (232-1245) 06/24/21 20:10 Folate 9.3 ng/mL (4.8-37.3) 06/24/21 20:10 Procalcitonin 0.29 ng/mL (0-0.5) 06/25/21 05:52 TSH 0.96 uIU/mL (0.27-4.20) 06/24/21 20:10 Free T4 1.40 ng/dL (0.82-1.77) 06/24/21 20:10 Urine Color Yellow (Yellow) 06/24/21 18:00 Urine Appearance Clear (CLEAR) 06/24/21 18:00 Urine pH 8 (5-7) H 06/24/21 18:00 Ur Specific [place] 1.010 (1.005-1.030) 06/24/21 18:00 Urine Protein Neg (Negative) 06/24/21 18:00 Urine Glucose (UA) Norm (Normal) 06/24/21 18:00 Urine Ketones Negative (Negative) 06/24/21 18:00 Urine Blood 2+ (Negative) H 06/24/21 18:00 Urine Nitrate Negative (Negative) 06/24/21 18:00 Urine Bilirubin Neg (Negative) 06/24/21 18:00 Prot Sulfosalicylic Acd Negative (Negative) 06/24/21 18:00 Urine Urobilinogen 1 mg/dL (Negative) H 06/24/21 18:00 Ur Leukocyte Esterase Negative (Negative) 06/24/21 18:00 Urine RBC 0-4 /hpf (0-2) H 06/24/21 18:00 Urine WBC None /hpf (0-5) 06/24/21 18:00 Ur Squamous Epith Cells 0-4 /hpf (0-5) H 06/24/21 18:00 Amorphous Sediment Not Reportable 06/24/21 18:00 Urine Bacteria None /hpf (NONE) 06/24/21 18:00 Vancomycin Trough 17.8 ug/mL (10-15) H 06/29/21 07:08 Urine Opiates Screen Negative ng/mL (Negative) 06/24/21 18:00 Ur Barbiturates Screen Negative ng/mL (Negative) 06/24/21 18:00 Ur Phencyclidine Scrn Negative ng/mL (Negative) 06/24/21 18:00 Ur Amphetamines Screen Negative ng/mL (Negative) 06/24/21 18:00 U Benzodiazepines Scrn Negative ng/mL (Negative) 06/24/21 18:00 Urine Cocaine Screen Negative ng/mL (Negative) 06/24/21 18:00 U Marijuana (THC) Screen Negative ng/mL (Negative) 06/24/21 18:00 Hepatitis A IgM Ab Non-reactive (Nonreactive) 06/24/21 20:10 Hep Bs Antigen Non-reactive (Nonreactive) 06/24/21 20:10 Hep B Core IgM Ab Non-reactive (Nonreactive) 06/24/21 20:10 Hepatitis C Antibody Non-reactive (Nonreactive) 06/24/21 20:10 Influenza Type A Ag Negative (Negative) 06/24/21 20:35 Influenza Type B Ag Negative (Negative) 06/24/21 20:35 SARS-CoV-2 Ag (Rapid) Negative (Negative) 06/24/21 20:35 Vitals Last Vital Signs Temp 98.0 F 06/29/21 11:31 Pulse 100 06/29/21 11:31 Resp 20 H 06/29/21 11:31 BP 127/71 06/29/21 11:31 Pulse Ox 90 06/29/21 11:31 Discharge Plan Discharge Patient Disposition: Xfer SNF Condition: Stable Prescriptions: New Xifaxan 550 mg Tablet 550 mg PO Q12H Qty: 180 0RF lactulose 20 gram/30 mL Solution 30 g PO BID Qty: 2880 2RF Continued (DME) Lift chair See Rx Instructions .Route .MEDSUPPLY Qty: 1 0RF Rx Instructions: As directed (DME) Diabetic Shoes See Rx Instructions .ROUTE .MEDSUPPLY Qty: 1 0RF Rx Instructions: As directed by [facility] with 3 pairs of inserts ([facility] [place]) insulin syr/ndl U100 half juanito 0.3 mL 30 gauge x 1/2 syringe See Rx Instructions .ROUTE .MEDSUPPLY Qty: 100 3RF Rx Instructions: As directed ([facility] [place]) lancets [Accu-Chek Softclix Lancets] Misc See Rx Instructions .ROUTE .MEDSUPPLY Qty: 200 2RF Rx Instructions: As directed ([facility] [place]) Blood Glucose Test Strip See Rx Instructions .ROUTE .MEDSUPPLY Qty: 100 2RF Rx Instructions: testing three times daily (DME) lancets Misc See Rx Instructions .ROUTE .MEDSUPPLY Qty: 100 2RF Rx Instructions: three times daily atorvastatin 40 mg Tablet 40 mg PO DAILY@08 0RF clopidogrel 75 mg Tablet 75 mg PO DAILY@08 0RF polyethylene glycol 3350 [Miralax] 17 gram/dose Powder 17 g PO DAILY@08 0RF albuterol sulfate [ProAir HFA] 90 mcg/actuation Hfa Aerosol Inhaler 2 puff INHALATION Q6H PRN (Reason: SHORTNESS OF BREATH) 0RF oxycodone 5 mg Tablet 5 mg PO Q6H PRN (Reason: Severe Pain) Qty: 30 0RF allopurinol 300 mg tablet 300 mg PO DAILY@08 0RF nitroglycerin 0.4 mg tablet, sublingual 0.4 mg sublingual Q5M PRN (Reason: Chest Pain) 0RF Tylenol 325 mg Tablet 650 mg PO Q6H PRN (Reason: pain/temp) 0RF donepezil 5 mg Tablet 5 mg PO DAILY@20 0RF bumetanide 2 mg Tablet 2 mg PO BID 0RF ondansetron HCl 4 mg Tablet 4 mg PO Q4H PRN (Reason: Nausea) 0RF triamcinolone acetonide 0.1 % Cream See Rx Instructions .ROUTE .COMPLEX 0RF Rx Instructions: apply to bilateral lower legs topically every evening and nigh shift for redness nystatin 100,000 unit/gram powder See Rx Instructions .ROUTE .COMPLEX 0RF Rx Instructions: apply to abd fold and other red area every shift until healed then dc quetiapine 50 mg tablet 50 mg PO BEDTIME@20 0RF Multivitamins 28 mg iron- 800 mcg Tablet 1 tab PO DAILY@08 0RF Lantus U-100 Insulin 100 unit/mL solution 85 unit SUBCUT BEDTIME@20 0RF pantoprazole 40 mg tablet,delayed release (DR/EC) 40 mg PO BID@08,20 0RF Humalog KwikPen Insulin 100 unit/mL insulin pen See Rx Instructions .ROUTE .COMPLEX 0RF Rx Instructions: 30 units before meals @07:00,11:00,16:00 metoprolol tartrate 25 mg tablet 25 mg PO BID@08,20 0RF potassium chloride 20 mEq tablet extended release 20 meq PO BID@08,14 0RF Discontinued cyclobenzaprine 5 mg Tablet 5 mg PO Q8H PRN (Reason: Muscle Spasm) 0RF Discharge Orders: Discharge Order (Routine); Ordered 06/29/21 Ordered By: Jairo Fuentes Referrals: Wound Care [Provider Group] - 1 week (LLE wounds) Rubi Saenz DO [Primary Care Provider] - 4-7 days Discharge Diet: Cardiac and Diabetic Discharge Activity: Increase activity as tolerated Patient Instructions: Lactulose (By mouth), Rifaximin (By mouth), Encephalopathy (GEN), Opioid Safety Activity Restrictions/Additional Instructions: Please continue wound care with Hydrofera Blue on the ulcerations, ABD pad, gauze, daily. Please arrange for graduated compression stockings, 20 and 30 mmHg for BL LE. Continue lactulose, rifaximin. 2 soft bowel movements per day. Follow-up with primary doctor regarding liver cirrhosis, discussed arrangements for assessment by hepatology. Please follow-up regarding adhesive capsulitis of the right shoulder. Regarding incidental findings including left adrenal mass, 2.6 cm. Additional evaluation with renal MRI suggested. Similarly incidentally noted slight enlargement of 5.5 cm right lower renal mass containing higher than water density. Smaller left renal mass mass also noted possibly containing higher than water density as before. If not previously performed, recommend non-emergent follow-up MRI without and with contrast. Follow-up regarding macrocytic anemia. B12, folic acid, TSH normal. Follow-up regarding thrombocytopenia. Other chronic conditions. Discharge Attestations Time Spent in Discharge Care*: greater than 30 min Status at Discharge: Cognitive status at discharge: cognitively intact , Behavioral status at discharge: cooperative , Quality Metrics Clinical Quality Measures [ No reported AMI, CVA or VTE this stay] Coding Level of Care Code Acute Chg FW DC note Diagnoses Encephalopathy G93.40 Cellulitis L03.90 Acute encephalopathy G93.40 WOLFE (nonalcoholic steatohepatitis) K75.81 Thrombocytopenia D69.6 Fever R50.9 Fever type: unspecified History of GI bleed Z87.19 PUD (peptic ulcer disease) K27.9 Pulmonary emboli I26.99 Hypertension I10 Anxiety F41.9
--- NOTE | 2021-06-29 15:11 | PC.NURSE ---
report called to Courtney VALENTINE at [facility]
[2021-06-29 15:17] LABS: SARS Covid-2 Antigen Negative (Negative)
--- NOTE | 2021-06-29 16:17 | PC.OT ---
OT EVALUATION ORDERS RECEIVED. PATIENT SCHEDULED FOR DISCHARGE; EVALUATION TO BE HELD AT THIS TIME.
[2021-06-29 16:44] LABS: Glucose Point of Care 338 mg/dL (70-110)
[2021-06-29] MEDS: nystatin powder 15 gm Btl TOPICAL (18:13)
--- NOTE | 2021-06-29 18:49 | PC.NURSE ---
NEW TRIP SET UP THROUGH [facility]. TRIP ID #[id number]
[2021-06-29] MEDS: quetiapine 25 mg Tablet 50 MG PO (20:36)
[2021-06-29] MEDS: donepezil 5 MG Tablet PO (20:36)
[2021-06-29 21:04] LABS: Glucose Point of Care 380 mg/dL (70-110)
== END 2021-06-29 21:15 | disposition skilled nursing facility (03) | DRG 602 ==
LOC: ER 21:23 → MEDSURG 21:54
PROVIDERS: Family Medicine; Admitting Provider Internal Medicine; Emergency Provider Emergency Medicine; PCP Family Medicine; Visit Provider Internal Medicine
DX: L03.116 Cellulitis of left lower limb (principal); G92.8 Other toxic encephalopathy; I13.0 Hypertensive heart and chronic kidney disease with heart failure and stage 1 through stage 4 chronic kidney disease, or unspecified chronic kidney disease; Z68.41 Body mass index [BMI] 40.0-44.9, adult; I50.32 Chronic diastolic (congestive) heart failure; L03.115 Cellulitis of right lower limb; F03.90 Unspecified dementia, unspecified severity, without behavioral disturbance, psychotic disturbance, mood disturbance, and anxiety; F41.9 Anxiety disorder, unspecified; E11.42 Type 2 diabetes mellitus with diabetic polyneuropathy; I25.10 Atherosclerotic heart disease of native coronary artery without angina pectoris; Z95.5 Presence of coronary angioplasty implant and graft; E11.22 Type 2 diabetes mellitus with diabetic chronic kidney disease; N18.9 Chronic kidney disease, unspecified; E11.51 Type 2 diabetes mellitus with diabetic peripheral angiopathy without gangrene; F32.A Depression, unspecified; E78.5 Hyperlipidemia, unspecified; E66.01 Morbid (severe) obesity due to excess calories; Z87.440 Personal history of urinary (tract) infections; Z87.891 Personal history of nicotine dependence; G89.29 Other chronic pain; K59.00 Constipation, unspecified; M10.9 Gout, unspecified; N28.89 Other specified disorders of kidney and ureter; E27.9 Disorder of adrenal gland, unspecified; Z79.02 Long term (current) use of antithrombotics/antiplatelets; Z79.891 Long term (current) use of opiate analgesic; Z79.51 Long term (current) use of inhaled steroids; Z79.4 Long term (current) use of insulin; E86.0 Dehydration; Z86.16 Personal history of COVID-19; M25.511 Pain in right shoulder; I71.6 Thoracoabdominal aortic aneurysm, without rupture; Z86.711 Personal history of pulmonary embolism; K75.81 Nonalcoholic steatohepatitis (NASH); D69.6 Thrombocytopenia, unspecified; Z86.718 Personal history of other venous thrombosis and embolism; K74.60 Unspecified cirrhosis of liver
CPT/HCPCS: 36415; 36416; 36600; 51702; 70450; 71045; 73030; 74176; 76705; 80053; 80074; 80202; 80306; 81001; 82140; 82252; 82550; 82607; 82746; 82803; 82962; 83605; 83690; 83735; 83880; 84100; 84145; 84439; 84443; 84484; 85025; 85610; 85651; 86140; 87040; 87086; 87426; 87804; 93005; 93970; 96365; 96367; 96372; 96375; 99285; J0743; J1170; J1815 ×2; J1940; J2270; J2405; J2543; J3370; J3475; J7030; J7050